=== PATIENT | female | born 1990 | race Caucasian/White ===

== ENCOUNTER 2017-12-31 16:22 | Emergency (ER) | payer SELFPAY ==
[2017-12-31 16:24] VITALS: BP 158/95; PULSE 106; RESP 16; TEMP 36.3; O2SAT 99; BMI 22.8
[2017-12-31] MEDS: Ondansetron 4 MG/2 ML Vial IM (17:17)
[2017-12-31] MEDS: morphine 8 MG/ML Syringe IM (17:17)
--- NOTE | 2017-12-31 17:22 | ED.VISSUMM ---
- ER Visit Summary Date of Service: 12/31/17 Chief Complaint: Back pain History of Present Illness: The patient is a 27 F presenting with back pain. She states this started over 4 weeks ago. She has been seeing a chiropractor, massage therapist, and her primary care physician. She is scheduled to see her primary care physician next Friday for a cortisone injection. She complains of low back pain radiating to her left leg. She denies bowel or bladder incontinence. Denies numbness or weakness. Denies fever. Denies chest pain or shortness of breath. She had an MRI which showed herniated disc at L4 and L5. She is currently on tramadol, gabapentin, prednisone, and ibuprofen. She denies recent injury. Physical Examination: Vitals are stable. Patient is afebrile. Alert no acute distress. HEENT exam is unremarkable. Neck is supple. Lungs are clear and equal bilaterally. Heart is regular rate and rhythm. Abdomen is soft nontender nondistended. Back: Left paraspinal lumbar muscle tenderness. Straight leg raise +30 degrees on left. Normal strength and sensation. Extremities are unremarkable. Skin is warm and dry. No focal neurologic deficit. Remainder of exam is unremarkable. Emergency Department Course and Treatment: Patient given morphine, Zofran. On reevaluation, patient is feeling much improved. She is advised to follow-up at her scheduled appointment with her primary care physician next week. Advised return to ED if worsening complaints. Disposition: Discharge home Impression: Acute on chronic back pain This note was generated with [employer] dictation software. It may contain incorrect words, spelling, and punctuation that were not noted in review of the chart prior to signing ED Disposition - Plan for ED Patient: Chief Complaint: Back Referrals: Mervin Rivera DO [Primary Care Provider] -
--- NOTE | 2017-12-31 17:50 | ED.DEP ---
ED Disposition - Plan for ED Patient: Chief Complaint: Back Instructions: ED Neck Back Pain General Referrals: Mervin Rivera DO [Primary Care Provider] -
[2017-12-31 18:03] VITALS: BP 132/100; PULSE 72; RESP 14; O2SAT 96
== END 2017-12-31 18:04 | disposition home or self-care (01) ==
PROVIDERS: Emergency Provider Emergency Medicine; Family Provider Family Medicine; PCP Family Medicine
DX: M54.5 Low back pain (principal); G89.29 Other chronic pain; M51.26 Other intervertebral disc displacement, lumbar region; Z79.52 Long term (current) use of systemic steroids; Z79.891 Long term (current) use of opiate analgesic; Z79.899 Other long term (current) drug therapy
CPT/HCPCS: 96372; 99282; J2405

== ENCOUNTER 2018-01-03 07:01 | Emergency (ER) | payer SELFPAY ==
[2018-01-03 07:01] VITALS: BP 122/93; PULSE 92; RESP 20; TEMP 36.8; O2SAT 100; BMI 22.8
[2018-01-03] MEDS: HYDROmorphone 1 MG/ML Syringe IV (08:23)
[2018-01-03] MEDS: diazePAM 5 MG Tablet PO ×2 (08:23→10:25)
--- NOTE | 2018-01-03 08:24 | ED.VISSUMM ---
- ER Visit Summary Date of Service: 01/03/18 Chief Complaint: Back pain History of Present Illness: The patient is a 27 F with back pain for a few weeks, she had a recent MRI which showed herniated disks. She has no bowel or bladder compromise. She has radiation to her left leg. She has no saddle anesthesia. She has no fever or chills. No urinary retention. She was given tramadol by the primary care physician and her pain is still quite intense. Physical Examination: Patient appears in some distress. She does not appear toxic. Moist mucous membranes, no obvious facial deformity No C-spine tenderness supple neck. Regular rate and rhythm without any obvious murmurs Clear lungs bilaterally speaking in full sentences without any obvious respiratory distress Abdomen soft and nontender no guarding or rebound suprapubic mass She has lower lumbar and paraspinal tenderness. She has 2+ patellar reflexes bilaterally 1+ Achilles reflexes bilaterally. She has normal plantar flexion of both feet, she has normal dorsiflexion of both great toes. She has a positive straight leg at about 30-45 degrees on the left. Skin does not show any obvious rashes or lesions, no trauma. Alert oriented ?3 with no gross focal deficit Emergency Department Course and Treatment: Patient received IM Dilaudid and Valium. Her symptoms improved I reexamined her, she has a normal neurological exam. She feels like she can void fully. She is able for discharge. An appointment with her PCP in 3 days. Disposition: Discharged stable condition Impression: Lumbar strain Sciatica This note was generated with [employer] dictation software. It may contain incorrect words, spelling, and punctuation that were not noted in review of the chart prior to signing ED Disposition - Plan for ED Patient: Disposition: Home or Assisted Living Chief Complaint: Back Prescriptions: Gabapentin [Neurontin] 600 mg PO TIDCM #90 tab Oxycodone HCl/Acetaminophen [Oxycodone-Acetaminophen 10-325] 1 ea PO 4X/DAY PRN #12 tab PRN Reason: Pain Referrals: Mervin Rivera DO [Primary Care Provider] - 2 Days
[2018-01-03] MEDS: Ondansetron ODT 4 MG Tablet PO (10:25)
[2018-01-03] MEDS: HYDROmorphone 1 MG/ML Syringe IM (10:25)
[2018-01-03 11:16] VITALS: BP 143/96; PULSE 87; RESP 16; O2SAT 100
== END 2018-01-03 11:21 | disposition home or self-care (01) ==
PROVIDERS: Emergency Provider Emergency Medicine; Family Provider Family Medicine; PCP Family Medicine
DX: S39.012A Strain of muscle, fascia and tendon of lower back, initial encounter (principal); M54.42 Lumbago with sciatica, left side; Z79.891 Long term (current) use of opiate analgesic; X58.XXXA Exposure to other specified factors, initial encounter; Y93.89 Activity, other specified; Y92.89 Other specified places as the place of occurrence of the external cause; Y99.8 Other external cause status
CPT/HCPCS: 96372; 96374; 99282; A4216

== ENCOUNTER 2018-03-26 12:00 | Outpatient (RCR) | payer SELFPAY ==
--- NOTE | 2018-03-02 12:21 | HP.PTEVAL_ITS ---
Patient's Visit Information KRISTEL VANEGAS is a 27 year old F referred to Physical Therapy by Mervin Rivera DO with a diagnosis of LUMBAR RADICULOPATHY AND LUMBOSACRAL NEURITIS. Date of Evaluation: 03/02/18 Physical Therapist: Rachael Wheatley PT, Cert MDT - Visit Plan Frequency: 2-3x /Week Duration: 4-6 Weeks Plan: AQUATIC THERAPY FOR PAIN RELEIF, POSTURE CORRECTION/STRENGTHENING, INSTRUCTION IN APPROPRIATE BODY MECHANICS AND ACTIVITY MODIFICATIONS. DLS STARTING WITH A NEUTRAL SPINE PROGRESSING ROM TOLERATED. BARBRA LE ROM, STRETCHING AND STRENGTHENING. HEP INSTRUCTION. 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 Disability: NO. Present symptoms: BACK AND LEFT LE SX'S. PATIENT REPORTS MOST OF PAIN IS IN HER LEG. PAIN GOES FROM MID BACK ALL THE WAY TO LEFT TOES. NUMBNESS AND TINGLING IN LEFT LE TOO TO FOOT. Present since: NOV 2017. Pain Scale: WORST 11/10, LEAST 3/10. Currently: 10. Commenced as a result of: NO APPARENT REASON. Symptoms at onset: LLE STIFFNESS. Worse: STANDING, SITTING, MOVING, EVERYTHING. Better: PAIN MEDICINE (PERCOCET, GABAPENTIN - STOPPED TRAMADOL YESTERDAY), SOMETIMES A HOT SHOWER, SOMETIMES ICE, SOMETIMES SITTING. FREQUENT CHANGE OF POSITION. BACK BRACE RECOMMENDED BY DOCTOR. Disturbed sleep: YES. Previous history/Previous treatment: 2006 WORK[employer] COMP CLAIM FOR STRAINED LOW BACK. CHIROPRACTOR OFF AND ON AT LEAST 2-3 TIMES A YEAR SINCE 2006. LAST CHIROPRACTIC VISIT WAS BEGINNING OF DEC 2017. SINCE 2018 HAS ONLY HAD MASSOTHERAPY. SENSORY DEPORVATION FLOAT TANK X 1 IN [place] IN DEC WITH TEMPORARY BENEFIT. USING INVERSION TABLE - DOCTOR RECOMMENDED. Coughing/sneezing/straining: POSITIVE. Gait: PATIENT REPORTS HER WALKING IS OFF BECAUSE OF HER LEFT ANKLE PAIN. LIMPING. STATES THE PAIN SOMETIMES CAUSES HER TO SIT DOWN. Difficulty initiating urinatin: NO. Accidents: UNREMARKABLE. Unexplained weight loss: NO. Imaging: PATIENT REPORTS DEC 2017 LUMBAR MRI SHOWING 2 BULGING DISCS L4-L5 REGIONS. PATIENT DENIES HAVING ANY X- RAYS. STATES THE ED TOLD HER SHE HAS ARTHRITIS ALL THE WAY UP AND DOWN HER BACK. STATES DR. RIVERA ORDERED HER MRI AND SHE HAD IT COMPLETED AT [facility]. PMH: ANXIETY, DEPRESSION, OCD - PATIENT REPORTS NONE OF THESE ARE DIAGNOSED AND SHE DOES NOT TAKE MEDICINE CURRENTLY FOR ANY OF THESE. Recent major surgery: NO. PLOF (Prior Level of Function): PATIENT REPORTS SINCE NOV 2017 SHE IS NOW UNABLE TO PLAY WITH HER DOGS AND PICK THINGS UP LIKE THE JUG OF MILK AND LAUNDRY BASKETS. CAN'T DO DISHES BECAUSE OF BENDING TO PUT THEM IN THE EXHIBIT CLEANER, MAKING BEDS AND ANYTHING THAT HAS RESISTANCE WITH LIFTING, PUSHING OR PULLING. SHE REPORTS THAT PRIOR TO NOV SHE WAS ABLE TO DO ALL THESE THINGS. OTHER: PATIENT REPORTS DR. RIVERA ALSO REFERRED HER TO PAIN MGMT AND SHE HAS AN APPOINTMENT MAR 18 2018. - Objective Sitting/Standing Posture: FAIR. FORWARD HEAD. ROUNDED SHOULDERS. Lordosis: REDUCED. Lateral shift: MILD RIGHT. Relevant shift: NO. Active Correction of posture: WORSE. Other Observations: INDEP GAIT INTO PT WITHOUT ANY ASSISTIVE DEVICES OR LOB. PATIENT MOVES AND TALKS IMPULSIVELY THROUGHTOUT SESSION. Motor deficit: RIGHT HIP 4-/5, KNEE EXT 5/5, KNEE FLEX 5/5 ANKLE 5/5. LEFT HIP 3+/5, KNEE EXT 4/5, KNEE FLEX 4/5, ANKLE 3/5. Sensory deficit: DECREASED LIGHT TOUCH SENSATION OF LEFT MORAES AND ANKLE COMPARED TO RIGHT. HYPERSENSATIVITY OF LEFT FOOT MEDIALLY. ROM deficit: LEFT LE HAMSTRINGS AND GASTROC-SOLEUS COMPLEX. Reflexes: 2/3 BARBRA LE'S. Dural Signs: POSITIVE BARBRA LE'S LEFT > RIGHT. Lumbar mvmt loss: flex - MIN - INCREASES BARBRA LB PAIN. ext - MIN - INCREASES LB AND LEFT HIP PAIN. R SG - MOD - INCREASES LB AND LEFT LE PAIN ESPECIALLY BEHIND KNEE. L SG - MOD - INCREASES LB AND LEFT LE PAIN ESPEICALLY BEHIND KNEE. REPORTS SHE DIDN'T TAKE HER PILLS USUAL AT 10 AM THIS MORNING. Core strength: POOR. Palpation: VERY TENDER WITH LIGHT PALPATION OF THE L345S1 REGION. VERY TENDER OVER LEFT LUMBAR PARASPINALS AND BARBRA INCREASED MUSCLE TONE OF PARASPINALS. NOT TENDER RIGHT BUTTOCK OR HIP BUT TENDER INTO LEFT BUTTOCK WELL PREVIOUSLY MENTIONED LEFT FOOT. - Goals Goal 1:: DECREASE C/O BACK AND LLE SX'S Goal Time Frame: 4-6 Weeks Goal 2:: IMPROVE SITTING, PERSONAL CARE, LIFTING, WALKING, STANDING, SLEEP, SOCIAL LIFE, TRAVEL AND EMPLOYMENT/HOMEMAKING FUNCTION. Goal Time Frame: 4-6 Weeks Goal 3:: INSTRUCT IN PROPHYLAXIS Goal Time Frame: 4-6 Weeks - Rehabilitation Potential Rehabilitation Potential: Fair - Anticipated Interventions Patient/Client Instruction: Educate patient on: Condition, Plan of Care, Risk Factors, Benefits of Fitness Program For the Purpose of:: To improve self management Therapeutic Exercise to Include: Strength training, Body mechanics, Postural training, Flexibilty training, In an aquatic setting, Dynamic Lumbar Stabilization For the Purpose of:: To decrease pain, To increase ROM, To improve nutrient delivery to tissue, To improve muscle performance and motor function, To increase tolerance to activity/condition/position, To improve ability of physical actions for home/community/work/leisure, To improve gait and locomotor functions Thank you for the opportunity to evaluate your patient. For Medicare and Medicare HMO plans, please review the plan of care and approve it. It will need to be FAXED BACK to us at [phone] for Medicare purposes. For Medicare only, by signing this I certify the plan of care. Please let me know if there are questions or concerns regarding this plan of care. Physician Signature: Date:
--- NOTE | 2018-03-19 10:59 | HP.PTREVAL_ITS ---
Mervin Rivera, DO, It has been my pleasure to treat KRISTEL VANEGAS over the last 6 visits for LUMBAR RADICULOPATHY AND LUMBOSACRAL NEURITIS. Please see the progress note below for an update on the physical therapy plan of care! Subjective: PATIENT REPORTS THE POOL THERAPY HAS HELPED. STATES SHE IS HAVING LESS PROBLEMS WITH HER LEFT FOOT. CANCELLED INJECIONS YESTERDAY DUE TO FEELING BETTER. TAKING ABOUT 50% LESS MEDICINE. CURRENTLY HAVING MILD LBP AND SORENESS IN RIGHT FOOT AND TOES BUT NO LE PAIN RIGHT NOW. PLANNING TO JOIN [employer] TODAY BUT TRYING TO FIGURE OUT HOW THAT WORKS AND WHAT SHE WOULD/SHOULD BE ABLE TO DO WITH THE MEMBERSHIP. REPORTS HER PAIN IS NOW RANGING FROM 1-7/10. PATIENT REPORTS SHE CAN PLAY WITH THE DOGS NOW, TAKE HER GRANDMA TO THE BATHROOM, DO LAUNDRY MODIFIED, DRIVE AND TAKE THE TRASH OUT BUT CAREFULLY. PATIENT REPORTS SHE HASN'T BEEN AFRAID TO TRY THINGS SHE WAS BEFORE STARTING THERAPY. NO LONGER USING ABDOMINAL BINDER. Objective/Function: PATIENT STILL HAS SIGNIFICANT FINDINGS BUT SHE HAS NO INSURANCE - UPON EXAM TODAY: INDEP GAIT WITHOUT AD OR LOB BUT MILD LIMP ON LLE. LATERAL SHIFT: MILDLY TO THE RIGHT. Relevant shift: NO. Active Correction of posture: WORSE. Other Observations: INDEP GAIT INTO PT WITHOUT ANY ASSISTIVE DEVICES OR LOB. PATIENT MOVES AND TALKS IMPULSIVELY THROUGHTOUT SESSION. INDEP TRANSFER SIT TO STAND WITHOUT UE ASSIST. Motor deficit: RIGHT HIP 4-/5, KNEE EXT 5/5, KNEE FLEX 5/5 ANKLE 5/5. LEFT HIP 4-/5, KNEE EXT 5/5, KNEE FLEX 5/5, ANKLE 4/5. Sensory deficit: DECREASED LIGHT TOUCH SENSATION OF LEFT MEDIAL FOOT AND TOES COMPARED TO RIGHT BUT OTHERWISE BARBRA LE LIGHT TOUCH SENSATION APPEARS TO BE INTACT AND SYMMETRICAL RIGHT NOW. PATIENT REPORTS THAT AT TIMES THE MEDIAL ASPECT OF HER FOOT IS REALLY TENDER. ROM deficit: LEFT LE HAMSTRINGS AND GASTROC-SOLEUS COMPLEXS BARBRA. Dural Signs: POSITIVE BARBRA LE'S LEFT > RIGHT. Lumbar mvmt loss: flex - NIL - INCREASES BARBRA LB PAIN. ext - MIN - INCREASES LB AND LEFT HIP PAIN INTO LEFT THIGH. R SG - MOD - INCREASES LEFT LBP. L SG - MOD - INCREASES LEFT AND CENTRAL LBP. Core strength: POOR. Palpation: VERY TENDER WITH LIGHT PALPATION OF THE L345S1 REGION. VERY TENDER OVER LEFT LUMBAR PARASPINALS AND BARBRA INCREASED MUSCLE TONE OF PARASPINALS. NOT TENDER RIGHT BUTTOCK OR HIP BUT TENDER INTO LEFT BUTTOCK WELL PREVIOUSLY MENTIONED LEFT FOOT. THIS PT RECOMMENDS FURTHER PT OR PHYSICIAN RE-ASSESSMENT AND/OR PAIN MGMT. Plan Plan: RECOMMEND CONT PT AT LEAST 1-2 TIMES A WEEK X 3-4 WEEKS FOR FURTHER INSTRUCTION IN PROPER POSTURE CONTROL, BODY MECHANICS AND SAFE APPROPRIATE INDEP EX WITH HEALTH AND WELLNESS MEMBERSHIP ALONG WITH FURTHER HEP INSTRUCITON. PATIENT IS AGREEABLE TO ONE TIME A WEEK AT THIS TIME. Goals Goal 1:: DECREASE C/O BACK AND LLE SX'S Goal Time Frame: 4-6 Weeks Goal Progress: Progressing Goal 2:: IMPROVE SITTING, PERSONAL CARE, LIFTING, WALKING, STANDING, SLEEP, SOCIAL LIFE, TRAVEL AND EMPLOYMENT/HOMEMAKING FUNCTION. Goal Time Frame: 4-6 Weeks Goal Progress: Progressing Goal 3:: INSTRUCT IN PROPHYLAXIS Goal Time Frame: 4-6 Weeks Goal Progress: Progressing Anticipated Interventions Patient/Client Instruction: Educate patient on: Condition, Plan of Care, Risk Factors, Benefits of Fitness Program For the Purpose of:: To improve self management Therapeutic Exercise to Include: Strength training, Body mechanics, Postural training, Flexibilty training, In an aquatic setting, Dynamic Lumbar Stabilization For the Purpose of:: To decrease pain, To increase ROM, To improve nutrient delivery to tissue, To improve muscle performance and motor function, To increase tolerance to activity/condition/position, To improve ability of physical actions for home/community/work/leisure, To improve gait and locomotor functions Please do not hesitate to contact me at [phone] by phone or if you have questions or concerns regarding this new plan of care! Sincerely, Rachael Wheatley, PT, Cert MDT
--- NOTE | 2018-03-26 13:28 | HP.PTDCSUM_ITS ---
HP - PT D/C Summary It has been my pleasure to treat KRISTEL VANEGAS under orders from Mervin Rivera DO, for the diagnosis of LUMBAR RADICULOPATHY AND LUMBOSACRAL NEURITIS for a total of 7 visit(s). Discharge Date: Please see the following information for a summary of their discharge status. - Subjective Subjective: PATIENT REPORTS SHE IS DOWN TO 1.5 PILLS OF PERCOCET A DAY. PATIENT REPORTS SHE HAS BEEN HURTING MORE LATELY AND HAS NEEDED TO SLEEP IN THE CHAIR. INSIDE OF RIGHT FOOT IS STILL NUMB. 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 STATES SHE PLANS TO HAVE AN APPOINTMENT WITH DR. RIVERA NEXT WEEK. STATES SHE HAS BEEN TRYING TO DO THE HOME EX'S GIVEN AND SOMETIIMES THEY FEEL OK AND SOMETIMES THEY DON'T. STATES SHE WAS CRYING DUE TO PAIN THE OTHER DAY. - Pain LLE Pain Intensity (Out of 10): 3 Lumbar Spine Pain Intensity (Out of 10): 4 - Overall Improvement % Improvement: 60 - Objective Objective/Function: PATIENT IS NOT MAKING PROGRESS AND PATIENT IS UNABLE TO ATTEND PT REGULARLY OR REST BACK VERY WELL RIGHT NOW AND SHE DOES NOT HAVE INSURANCE. - Goals Goal 1:: DECREASE C/O BACK AND LLE SX'S Goal Progress: Not Progressing Goal 2:: IMPROVE SITTING, PERSONAL CARE, LIFTING, WALKING, STANDING, SLEEP, SOCIAL LIFE, TRAVEL AND EMPLOYMENT/HOMEMAKING FUNCTION. Goal Progress: Not Progressing Goal 3:: INSTRUCT IN PROPHYLAXIS Goal Progress: Not Progressing - Plan Plan: D/C FROM PT DUE TO LACK OF PROGRESS AND DIFFICULTY WITH PARTICIPATION AT THIS TIME. PATIENT AGREEABLE WITH DISCHARGE AND PLANS TO FOLLOW UP WITH DR. RIVERA. - D/C Information If there are questions or concerns regarding this patient's physical therapy, please feel free to call me at [phone]. Thank you for the referral of this patient. Sincerely, Rachael Wheatley, PT, Cert MDT
--- OUTSIDE RECORDS SUMMARY | 2018-05-04 21:24 | XMS RPT_ITS ---
:1990 Author Organization OHIP Care Team Providers Name Role Phone Mervin Rivera Attending Unavailable Mervin Rivera Primary Care Unavailable Mervin Rivera Referring Unavailable Roxie Thomas Attending Unavailable Mervin Rivera Primary Care Unavailable Mervin Rivera Primary Care Unavailable Geovanny Lewis Attending Unavailable PROBLEMS PROBLEMS DATE TYPE CONDITION / CODE ATTENDING STATUS SOURCE 01/03/2018 Unknown M54.30 - Geovanny Lewis Active [facility] / M54.30(ICD-10) Repository PROCEDURES PROCEDURES No Procedure Records FoundRESULTS RESULTS INITAL EVALUATION (1) Observed: 03/02/2018 Status: F Source: [place] - PT 4:36 PM [facility] REPOSITORY [facility] [address] [place] [address]. [address] [place] [address] / REHABILITATION SERVICES INITIAL EVALUATION MR#: [id number] Acct: [id number] Name: KRISTEL VANEGAS Rep #: [id number] : 1990 27 From: Rachael Wheatley PT, Cert. MDT Referring DrBuck: Mervin Rivera DO Status: REG RCR Insurance: [facility] PACKAGE PLAN SELF PAY INSURANCE Patient's Visit Information KRISTEL VANEGAS is a 27 year old F referred to Physical Therapy by Mervin Rivera DO with a diagnosis of LUMBAR RADICULOPATHY AND LUMBOSACRAL NEURITIS. Date of Evaluation: 03/02/18 Physical Therapist: Rachael Wheatley, PT, Cert MDT - Visit Plan Frequency: 2-3x /Week Duration: 4-6 Weeks Plan: AQUATIC THERAPY FOR PAIN RELEIF, POSTURE CORRECTION/STRENGTHENING, INSTRUCTION IN APPROPRIATE BODY MECHANICS AND ACTIVITY MODIFICATIONS. DLS STARTING WITH A NEUTRAL SPINE PROGRESSING ROM TOLERATED. BARBRA LE ROM, STRETCHING AND STRENGTHENING. HEP INSTRUCTION. 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 Disability: NO. Present symptoms: BACK AND LEFT LE SX'S. PATIENT REPORTS MOST OF PAIN IS IN HER LEG. PAIN GOES FROM MID BACK ALL THE WAY TO LEFT TOES. NUMBNESS AND TINGLING IN LEFT LE TOO TO FOOT. Present since: NOV 2017. Pain Scale: WORST 11/10, LEAST 3/10. Currently: 04/19. Commenced as a result of: NO APPARENT REASON. Symptoms at onset: LLE STIFFNESS. Worse: STANDING, SITTING, MOVING, EVERYTHING. Better: PAIN MEDICINE (PERCOCET, GABAPENTIN - STOPPED TRAMADOL YESTERDAY), SOMETIMES A HOT SHOWER, SOMETIMES ICE, SOMETIMES SITTING. FREQUENT CHANGE OF POSITION. BACK BRACE RECOMMENDED BY DOCTOR. Disturbed sleep: YES. Previous history/Previous treatment: 2006 WORK[employer] COMP CLAIM FOR STRAINED LOW BACK. CHIROPRACTOR OFF AND ON AT LEAST 2-3 TIMES A YEAR SINCE 2006. LAST CHIROPRACTIC VISIT WAS BEGINNING OF DEC 2017. SINCE 2018 HAS ONLY HAD MASSOTHERAPY. SENSORY DEPORVATION FLOAT TANK X 1 IN [place] IN DEC WITH TEMPORARY BENEFIT. USING INVERSION TABLE - DOCTOR RECOMMENDED. Coughing/sneezing/straining: POSITIVE. Gait: PATIENT REPORTS HER WALKING IS OFF BECAUSE OF HER LEFT ANKLE PAIN. LIMPING. STATES THE PAIN SOMETIMES CAUSES HER TO SIT DOWN. Difficulty initiating urinatin: NO. Accidents: UNREMARKABLE. Unexplained weight loss: NO. Imaging: PATIENT REPORTS DEC 2017 LUMBAR MRI SHOWING 2 BULGING DISCS L4-L5 REGIONS. PATIENT DENIES HAVING ANY X-RAYS. STATES THE ED TOLD HER SHE HAS ARTHRITIS ALL THE WAY UP AND DOWN HER BACK. STATES DR. RIVERA ORDERED HER MRI AND SHE HAD IT COMPLETED AT [facility]. PMH: ANXIETY, DEPRESSION, OCD - PATIENT REPORTS NONE OF THESE ARE DIAGNOSED AND SHE DOES NOT TAKE MEDICINE CURRENTLY FOR ANY OF THESE. Recent major surgery: NO. PLOF (Prior Level of Function): PATIENT REPORTS SINCE NOV 2017 SHE IS NOW UNABLE TO PLAY WITH HER DOGS AND PICK THINGS UP LIKE THE JUG OF MILK AND LAUNDRY BASKETS. 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 SHE REPORTS THAT PRIOR TO NOV SHE WAS ABLE TO DO ALL THESE THINGS. OTHER: PATIENT REPORTS DR. RIVERA ALSO REFERRED HER TO PAIN MGMT AND SHE HAS AN APPOINTMENT MAR 18 2018. - Objective Sitting/Standing Posture: FAIR. FORWARD HEAD. ROUNDED SHOULDERS. Lordosis: REDUCED. Lateral shift: MILD RIGHT. Relevant shift: NO. Active Correction of posture: WORSE. Other Observations: INDEP GAIT INTO PT WITHOUT ANY ASSISTIVE DEVICES OR LOB. PATIENT MOVES AND TALKS IMPULSIVELY THROUGHTOUT SESSION. Motor deficit: RIGHT HIP 4-/5, KNEE EXT 5/5, KNEE FLEX 5/5 ANKLE 5/5. LEFT HIP 3+/5, KNEE EXT 4/5, KNEE FLEX 4/5, ANKLE 3/5. Sensory deficit: DECREASED LIGHT TOUCH SENSATION OF LEFT MORAES AND ANKLE COMPARED TO RIGHT. HYPERSENSATIVITY OF LEFT FOOT MEDIALLY. ROM deficit: LEFT LE HAMSTRINGS AND GASTROC-SOLEUS COMPLEX. Reflexes: 2/3 BARBRA LE'S. Dural Signs: POSITIVE BARBRA LE'S LEFT > RIGHT. Lumbar mvmt loss: flex - MIN - INCREASES BARBRA LB PAIN. ext - MIN - INCREASES LB AND LEFT HIP PAIN. R SG - MOD - INCREASES LB AND LEFT LE PAIN ESPECIALLY BEHIND KNEE. L SG - MOD - INCREASES LB AND LEFT LE PAIN ESPEICALLY BEHIND KNEE. REPORTS SHE DIDN'T TAKE HER PILLS USUAL AT 10 AM THIS MORNING. Core strength: POOR. Palpation: VERY TENDER WITH LIGHT PALPATION OF THE L345S1 REGION. VERY TENDER OVER LEFT LUMBAR PARASPINALS AND BARBRA INCREASED MUSCLE TONE OF PARASPINALS. NOT TENDER RIGHT BUTTOCK OR HIP BUT TENDER INTO LEFT BUTTOCK WELL PREVIOUSLY MENTIONED LEFT FOOT. - Goals Goal 1:: DECREASE C/O BACK AND LLE SX'S Goal Time Frame: 4-6 Weeks Goal 2:: IMPROVE SITTING, PERSONAL CARE, LIFTING, WALKING, STANDING, SLEEP, SOCIAL LIFE, TRAVEL AND EMPLOYMENT/HOMEMAKING FUNCTION. Goal Time Frame: 4-6 Weeks Goal 3:: INSTRUCT IN PROPHYLAXIS Goal Time Frame: 4-6 Weeks - Rehabilitation Potential Rehabilitation Potential: Fair - Anticipated Interventions Patient/Client Instruction: Educate patient on: Condition, Plan of Care, Risk Factors, Benefits of Fitness Program For the Purpose of:: To improve self management Therapeutic Exercise to Include: Strength training, Body mechanics, Postural training, Flexibilty training, In an aquatic setting, Dynamic Lumbar Stabilization For the Purpose of:: To decrease pain, To increase ROM, To improve nutrient delivery to tissue, To improve muscle performance and motor function, To increase tolerance to activity/condition/position, To improve ability of physical actions for home/community/work/leisure, To improve gait and locomotor functions Thank you for the opportunity to evaluate your patient. For Medicare and Medicare HMO plans, please review the plan of care and approve it. It will need to be FAXED BACK to us at [phone] for Medicare purposes. For Medicare only, by signing this I certify the plan of care. Please let me know if there are questions or concerns regarding this plan of care. Physician Signature: Date: <Electronically signed by Rachael Wheatley PT, Cert. MDT> 03/02/18 1636 CC: Mervin Rivera DO [place] Signed EMERGENCY DEPARTMENT Observed: 01/03/2018 Status: F Source: [place] SUMMARY 5:37 PM [facility] Medical Records Department [address] [place] [address] Emergency Department Summary 01/03/18 0824 MR#: [id number] Acct: [id number] Name: KRISTEL VANEGAS Rep #: [id number] : 1990 27 From: Geovanny Lewis MD PCP: Mervin Rivera DO Status: DEP ER - ER Visit Summary Date of Service: 01/03/18 Chief Complaint: Back pain History of Present Illness: The patient is a 27 F with back pain for a few weeks, she had a recent MRI which showed herniated disks. She has no bowel or bladder compromise. She has radiation to her left leg. She has no saddle anesthesia. She has no fever or chills. No urinary retention. She was given tramadol by the primary care physician and her pain is still quite intense. Physical Examination: Patient appears in some distress. She does not appear toxic. Moist mucous membranes, no obvious facial deformity No C-spine tenderness supple neck. Regular rate and rhythm without any obvious murmurs Clear lungs bilaterally speaking in full sentences without any obvious respiratory distress Abdomen soft and nontender no guarding or rebound suprapubic mass She has lower lumbar and paraspinal tenderness. She has 2+ patellar reflexes bilaterally 1+ Achilles reflexes bilaterally. She has normal plantar flexion of both feet, she has normal dorsiflexion of both great toes. She has a positive straight leg at about 30-45 degrees on the left. Skin does not show any obvious rashes or lesions, no trauma. Alert oriented 3 with no gross focal deficit Emergency Department Course and Treatment: Patient received IM Dilaudid and Valium. Her symptoms improved I reexamined her, she has a normal neurological exam. She feels like she can void fully. She is able for discharge. An appointment with her PCP in 3 days. Disposition: Discharged stable condition Impression: Lumbar strain Sciatica This note was generated with [employer] dictation software. It may contain incorrect words, spelling, and punctuation that were not noted in review of the chart prior to signing ED Disposition - Plan for ED Patient: Disposition: Home or Assisted Living Chief Complaint: Back Prescriptions: Gabapentin [Neurontin] 600 mg PO TIDCM #90 tab Oxycodone HCl/Acetaminophen [Oxycodone-Acetaminophen 10-325] 1 ea PO 4X/DAY PRN #12 tab PRN Reason: Pain Referrals: Mervin Rivera, DO [Primary Care Provider] - 2 Days What to do if you have Problems For any increased pain, shortness of breath, bleeding, nausea or vomiting, chest pain, or any unexpected problems, contact your Primary Care Provider. Call [facility] ([phone]) or report to the closest Emergency Room. Call 911 if necessary. 01/03/18 3939 <Electronically signed by Geovanny Lewis MD> Date Geovanny Lewis MD Cosigner Signature (If Indicated): Date CC: Mervin Nicole [place] EMERGENCY DEPARTMENT Observed: 12/31/2017 Status: F Source: [place] SUMMARY 5:50 PM [facility] REPOSITORY [facility] Medical Records Department [address] [place] [address] Emergency Department Summary 12/31/17 1722 MR#: [id number] Acct: [id number] Name: KRISTEL VANEGAS Rep #: [id number] : 1990 27 From: Roxie Thomas MD PCP: Mervin Rivera DO Status: REG ER - ER Visit Summary Date of Service: 12/31/17 Chief Complaint: Back pain History of Present Illness: The patient is a 27 F presenting with back pain. She states this started over 4 weeks ago. She has been seeing a chiropractor, massage therapist, and her primary care physician. She is scheduled to see her primary care physician next Friday for a cortisone injection. She complains of low back pain radiating to her left leg. She denies bowel or bladder incontinence. Denies numbness or weakness. Denies fever. Denies chest pain or shortness of breath. She had an MRI which showed herniated disc at L4 and L5. She is currently on tramadol, gabapentin, prednisone, and ibuprofen. She denies recent injury. Physical Examination: Vitals are stable. Patient is afebrile. Alert no acute distress. HEENT exam is unremarkable. Neck is supple. Lungs are clear and equal bilaterally. Heart is regular rate and rhythm. Abdomen is soft nontender nondistended. Back: Left paraspinal lumbar muscle tenderness. Straight leg raise +30 degrees on left. Normal strength and sensation. Extremities are unremarkable. Skin is warm and dry. No focal neurologic deficit. Remainder of exam is unremarkable. Emergency Department Course and Treatment: Patient given morphine, Zofran. On reevaluation, patient is feeling much improved. She is advised to follow- up at her scheduled appointment with her primary care physician next week. Advised return to ED if worsening complaints. Disposition: Discharge home Impression: Acute on chronic back pain This note was generated with [employer] dictation software. It may contain incorrect words, spelling, and punctuation that were not noted in review of the chart prior to signing ED Disposition - Plan for ED Patient: Chief Complaint: Back Referrals: Mrevin Rivera DO [Primary Care Provider] - What to do if you have Problems For any increased pain, shortness of breath, bleeding, nausea or vomiting, chest pain, or any unexpected problems, contact your Primary Care Provider. Call [facility] ([phone]) or report to the closest Emergency Room. Call 911 if necessary. 12/31/171749 <Electronically signed by Roxie Thomas MD> Date Roxie Thomas MD Cosigner Signature (If Indicated): Date CC: Mervin Rivera DO DISCHARGE INSTRUCTION Observed: 12/31/2017 Status: F Source: [place] 5:50 PM [facility] REPOSITORY [facility] Medical Records Department [address] [place] [address] Discharge Instruction 12/31/171749 MR#: [id number] Acct: [id number] Name: KRISTEL VANEGAS Rep #: [id number] : 1990 27 From: Roxie Thomas MD PCP: Mervin Rivera DO Status: REG ER ED Disposition - Plan for ED Patient: Chief Complaint: Back Instructions: ED Neck Back Pain General Referrals: Mervin Rivera DO [Primary Care Provider] - What to do if you have Problems For any increased pain, shortness of breath, bleeding, nausea or vomiting, chest pain, or any unexpected problems, contact your Primary Care Provider. Call [facility] ([phone]) or report to the closest Emergency Room. Call 911 if necessary. 12/31/171749 <Electronically signed by Roxie Thomas MD> Date Roxie Thomas MD Cosignkim Signature (If Indicated): Date CC: Mervin Rivera DO ALLERGIES ALLERGIES DATE TYPE / CODE NAME / CODE REACTION SEVERITY SOURCE 01/03/2018 Drug nickel/F0060 Rash Unknown [facility] Allergy/4160 41499([facility] 25516(SNOMED ) Repository CT) ENCOUNTERS ENCOUNTERS ADMIT/DISCHARGE ACCOUNT ADMITTING ENCOUNTER LOCATION SOURCE NUMBER CLASS 03/04/2018 [id number] Ambulatory [facility] 5 [facility] ing:PT Repository 01/03/2018/ [id number] Emergency [facility] 8 3 [facility] ing:ED Repository 12/31/2017/ [id number] Emergency [facility] 8 5 [facility] ing:ED Repository PAYERS PAYERS ENCOUNTER GUARANTOR PAYER SUBSCRIBER SOURCE 03/04/2018 KRISTEL Estrella Primary Insurance:[facility] KRISTEL Delores Desiree [id number] [facility] [place]: [id number] [id number] Repository [id number]: (330) Date:2018-02-06 [phone] () 03/04/2018 Secondary NOT GIVENUNK [place] Insurance:SELF PAY [facility] Number: Effective Repository Date:2018-02-06 01/03/2018 KRISTEL Delores Primary NOT GIVENUNK Desiree [id number] Insurance:SELF PAY [place], [place] Number: Effective Repository [id number]: (330) Date:2018-01-03 [phone] () 12/31/2017 KRISTEL Estrella Primary NOT GIVENUNK Desiree [id number] Insurance:SELF PAY [place], [place] Number: Effective Repository [phone]: (330) Date:2017-12-31 [phone] ()
== END 2018-03-26 19:00 | disposition home or self-care (01) ==
LOC: PT 12:00
PROVIDERS: Family Provider Family Medicine; PCP Family Medicine; Referring Provider Family Medicine; Visit Provider Family Medicine
DX: M54.17 Radiculopathy, lumbosacral region (principal); M54.16 Radiculopathy, lumbar region
CPT/HCPCS: 97113; 97162; 97530

== ENCOUNTER → 2019-03-29 18:00 | Outpatient (CLI) | payer SELFPAY | PROVIDERS: PCP Family Medicine; Visit Provider Family Medicine | DX: R30.0 Dysuria (principal) | CPT/HCPCS: 87086 ==

== ENCOUNTER → 2019-10-27 14:14 | Outpatient (CLI) | payer BC, SELFPAY ==
[2019-10-27 16:52] LABS: Absolute Lymphocyte Count 2.31 X10^3/uL (0.83-4.51); Absolute Neutrophil Count 4.5 X10^3/uL (2.0-7.7); Basophil# 0.04 X10^3/uL; Basophil% 0.5 % (0-1); Eosinophil# 0.09 X10^3/uL; Eosinophils% 1.2 % (0-5); Hematocrit 43.1 % (37-47); Lymphocyte # 2.31 X10^3/ul (4.0); Lymphocyte % 31.6 % (19-41); Mean Corp Hgb Conc 32.5 g/dL (32-36); Mean Corpuscular Hgb 30.4 pg (27.0-32.0); Mean Corpuscular Volume 93.5 fL (81-99); Monocyte# 0.33 X10^3/uL; Monocyte% 4.5 % (0-10); NRBC Flagged by Analyzer 0 % (0-5); Neutrophil # 4.54 X10^3/uL (2.7-7.7); Neutrophil % 62.1 % (47-70); Platelet Count 369 K/mm3 (150-450); RBC Distribution Width SD 41.6 fl (35.1-43.9); Red Blood Count 4.61 M/mm3 (4.2-5.4); White Blood Count 7.3 K/mm3 (4.4-11.0)
[2019-10-27 17:48] LABS: ALB/GLOB Ratio 0.9 RATIO (0.9-2.4); AST(SGOT) 10 U/L (15-37); Alanine Aminotransfer ALT/SGPT 20 U/L (13-56); Albumin, Serum 3.6 g/dL (3.2-5.0); Alkaline Phosphatase 68 U/L (45-117); Anion Gap 5 (5-15); BUN 12 mg/dL (7-18); BUN/Creat Ratio 12.7 RATIO (10-20); Calcium,Total 9.2 mg/dL (8.5-10.1); Chloride 108 mmol/L (98-107); Creatinine, Serum 0.94 mg/dL (0.55-1.02); EST Glomerular Filtration Rate 74 mL/min (>60); Est Glom Filt Rate - Afr Amer 89 mL/min (>60); Globulin 4.1 g/dL (2.2-4.2); Glucose 82 mg/dL (74-106); Potassium 4.2 mmol/L (3.5-5.1); Protein, Total 7.7 g/dL (6.4-8.2); Sodium Level 139 mmol/L (136-145)
== END ==
PROVIDERS: PCP Family Medicine; Visit Provider Family Medicine
DX: Z01.818 Encounter for other preprocedural examination (principal); N80.9 Endometriosis, unspecified
CPT/HCPCS: 36415; 80053; 85025

== ENCOUNTER → 2020-01-17 14:29 | Outpatient (CLI) | payer BC, SELFPAY ==
[2020-01-17 17:54] LABS: Absolute Lymphocyte Count 2.42 X10^3/uL (0.83-4.51); Absolute Neutrophil Count 3.2 X10^3/uL (2.0-7.7); Basophil# 0.05 X10^3/uL; Basophil% 0.8 % (0-1); Eosinophil# 0.09 X10^3/uL; Eosinophils% 1.5 % (0-5); Hematocrit 42.4 % (37-47); Hemoglobin 13.6 g/dL (12.0-15.0); Lymphocyte # 2.42 X10^3/ul (4.0); Lymphocyte % 39.3 % (19-41); Mean Corp Hgb Conc 32.1 g/dL (32-36); Mean Corpuscular Hgb 30.4 pg (27.0-32.0); Mean Corpuscular Volume 94.9 fL (81-99); Mean Platelet Vol. 9.8 fl (6.2-12.0); Monocyte# 0.39 X10^3/uL; Monocyte% 6.3 % (0-10); NRBC Flagged by Analyzer 0 % (0-5); Neutrophil % 51.9 % (47-70); Platelet Count 336 K/mm3 (150-450); RBC Distribution Width CV 11.9 % (11.6-14.6); RBC Distribution Width SD 41.1 fl (35.1-43.9); Red Blood Count 4.47 M/mm3 (4.2-5.4); White Blood Count 6.2 K/mm3 (4.4-11.0)
[2020-01-17 18:11] LABS: Erythrocyte Sedimentation Rate 5 mm/hr (0-20)
[2020-01-17 19:00] LABS: ALB/GLOB Ratio 1.2 RATIO (0.9-2.4); AST(SGOT) 16 U/L (15-37); Alanine Aminotransfer ALT/SGPT 31 U/L (13-56); Albumin, Serum 4.2 g/dL (3.2-5.0); Alkaline Phosphatase 92 U/L (45-117); Anion Gap 7 (5-15); BUN 12 mg/dL (7-18); BUN/Creat Ratio 15.7 RATIO (10-20); CRP < 2.90 mg/L (0.0-3.0); Calcium,Total 9.1 mg/dL (8.5-10.1); Chloride 108 mmol/L (98-107); Creatinine, Serum 0.76 mg/dL (0.55-1.02); EST Glomerular Filtration Rate 94 mL/min (>60); Est Glom Filt Rate - Afr Amer 113 mL/min (>60); Globulin 3.5 g/dL (2.2-4.2); Glucose 90 mg/dL (74-106); Iron 47 ug/dL (50-170); Potassium 3.7 mmol/L (3.5-5.1); Protein, Total 7.7 g/dL (6.4-8.2); Sodium Level 139 mmol/L (136-145)
[2020-01-18 13:32] LABS: Vitamin B12 551 pg/mL (211-911)
== END ==
PROVIDERS: PCP Family Medicine; Visit Provider Family Medicine
DX: R20.0 Anesthesia of skin (principal); R53.1 Weakness; M79.10 Myalgia, unspecified site; M25.50 Pain in unspecified joint; R53.83 Other fatigue; Z51.81 Encounter for therapeutic drug level monitoring
CPT/HCPCS: 36415; 80053; 82306; 82607; 83540; 85025; 85652; 86140

== ENCOUNTER 2020-05-25 11:23 | Outpatient (RCR) | payer OTHER, SELFPAY | END 2020-07-18 23:59 | LOC: IMMUN 11:23 | PROVIDERS: PCP Family Medicine; Referring Provider Family Medicine; Visit Provider Family Medicine | DX: Z23 Encounter for immunization (principal) | CPT/HCPCS: 0001A; 91300 ==

== ENCOUNTER → 2020-11-27 07:19 | Outpatient (CLI) | payer OTHER, SELFPAY ==
--- NOTE | 2020-11-27 07:21 | MRI_ITS ---
STUDY: MRI RIGHT WRIST WITH AND WITHOUT CONTRAST REASON FOR EXAM: Right wrist mass for about 3 months. TECHNIQUE: Standardized fat and water weighted pulse sequences were obtained in all 3 orthogonal planes, pre-and post contrast administration. 15ml Dotarem via IV was administered for the contrast portion of the examination. COMPARISON: Radiographs 10/26/2020. FINDINGS: Normal visualized distal radius and ulna. Normal distal radioulnar articulation (DRUJ). There is a small linear central perforation of the radial aspect of the triangular fibrocartilage (gradient coronal images 18-21). Normal carpal bones. Normal radiocarpal, intercarpal and midcarpal articulations. Normal pisotriquetral articulation. Normal visualized interosseous scapholunate ligament. Normal extensor tendons. Normal flexor tendons. Normal carpal tunnel with a normal median nerve. Normal carpometacarpal articulation of the thumb. Normal second through fifth carpometacarpal articulations. Normal visualized metacarpal bones. There is a small well-defined superficial mass in the subcutis adipose space dorsal to the distal ulna corresponding to the skin marker measuring 0.2 x 0.5 x 0.5 cm (AP x transverse x length). The mass is intermediate in signal intensity on T1 sequences (T1 axial image 24) and on T2 sequences (T2 sagittal images 11, 12). There is no abnormal contrast enhancement. MRI/Upper Ext Joint Only W/WO Cont IMPRESSION: Small well-defined superficial mass dorsal to the distal ulna, without specific imaging characteristics although the signal characteristics may indicate a fibrous type lesion. Small linear central perforation of the radial aspect of the triangular fibrocartilage. Electronically Signed: Shawn Villar MD at 10:09 EDT Tel , Service support ,
== END ==
PROVIDERS: PCP Family Medicine; Referring Provider Orthopaedic Surgery; Visit Provider Orthopaedic Surgery
DX: R22.31 Localized swelling, mass and lump, right upper limb (principal)
CPT/HCPCS: 73223; A9575

== ENCOUNTER → 2021-02-07 | Outpatient (CLI) | payer OTHER, SELFPAY | END | disposition home or self-care (01) | LOC: LABSPEC 16:47 | PROVIDERS: PCP Family Medicine; Visit Provider Family Medicine | DX: U07.1 COVID-19 (principal) | CPT/HCPCS: 87635; U0005; U0003 ==

== ENCOUNTER 2021-02-24 10:28 | Emergency (ER) | payer BC, SELFPAY ==
[2021-02-24] VITALS (9 sets, daily range): BP systolic 126; BP diastolic 91; PULSE 18–154; RESP 12–20; TEMP 36.8–36.9; O2SAT 98–100; BMI 26.8
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
[2021-02-24] MEDS: Ziprasidone IM 20 MG/ML VIAL IM (11:05)
--- NOTE | 2021-02-24 11:21 | CT_ITS ---
STUDY: CT BRAIN WITHOUT CONTRAST REASON FOR EXAM: Female, 30 years old. Altered mental status. RADIATION DOSAGE (If Supplied By Facility): CTDIvol = ( 44.99 ) mGy, DLP = ( 745.49 ) mGycm TECHNIQUE: Transaxial CT imaging of the brain was performed without administration of intravenous contrast material. Individualized dose optimization techniques were used for this CT. COMPARISON: No relevant priors. FINDINGS: Normal soft tissue structures. Normal calvarium. Normal size ventricles and extra-axial spaces for the patient''s age. Normal white matter tracts of the cerebral hemispheres. Normal basal ganglia and thalami. Normal brainstem. Normal cerebellum. There is no intracranial hemorrhage. There are no findings of an acute ischemic infarction. Normal visualized paranasal sinuses. CT/Brain/Head without Contrast IMPRESSION: Normal unenhanced CT scan of the brain. Electronically Signed: Jeremy Kim, at 12:14 EST Tel , Service support ,
--- NOTE | 2021-02-24 11:21 | RAD_ITS ---
STUDY: X-RAY CHEST REASON FOR EXAM: Female, 30 years old. Altered mental status TECHNIQUE: Single AP portable view of the chest. COMPARISON: None. FINDINGS: The lungs are clear and expanded. There is no demonstrated pleural abnormality. Normal size heart. Normal mediastinum and kb. Normal visualized pulmonary arteries. Normal visualized aortic arch and descending thoracic aorta. Normal visualized thoracic spine. Normal visualized ribs, clavicles, and shoulders. There is no demonstrated abnormality of the visualized soft tissue structures of the upper abdomen. RAD/Chest 1 View (Portable) IMPRESSION: Normal x-ray examination of the chest. Electronically Signed: Jeremy Kim, at 12:03 EST Tel , Service support ,
[2021-02-24 11:31] LABS: Absolute Lymphocyte Count 1.35 X10^3/uL (0.83-4.51); Absolute Neutrophil Count 10.4 X10^3/uL (2.0-7.7); Basophil# 0.03 X10^3/uL; Basophil% 0.2 % (0-1); Hematocrit 33.8 % (37-47); Lymphocyte # 1.35 X10^3/ul (0.83-4.51); Lymphocyte % 10.9 % (19-41); Mean Corp Hgb Conc 35.5 g/dL (32-36); Mean Corpuscular Volume 87.3 fL (81-99); Mean Platelet Vol. 9.3 fl (6.2-12.0); NRBC Flagged by Analyzer 0 % (0-5); Neutrophil # 10.43 X10^3/uL (2.7-7.7); Neutrophil % 84.6 % (47-70); Platelet Count 283 K/mm3 (150-450); RBC Distribution Width CV 11.7 % (11.6-14.6); RBC Distribution Width SD 37.2 fl (35.1-43.9); Red Blood Count 3.87 M/mm3 (4.2-5.4); White Blood Count 12.4 K/mm3 (4.4-11.0)
[2021-02-24 11:36] LABS: Internal QC Validated? YES +Cl - CLEAR BKGD; Pregnancy, Serum, hCG Quali. NEGATIVE Negative
[2021-02-24 11:40] LABS: Alcohol, Blood (Medical)-Serum < 3.0 mg/dL
[2021-02-24 11:44] LABS: Anion Gap 9 (5-15); BUN 14 mg/dL (7-18); BUN/Creat Ratio 16.9 RATIO (10-20); Calcium,Total 8.6 mg/dL (8.5-10.1); Chloride 105 mmol/L (98-107); Creatinine, Serum 0.83 mg/dL (0.55-1.02); EST Glomerular Filtration Rate 85 mL/min (>60); Est Glom Filt Rate - Afr Amer 102 mL/min (>60); Estimated Creatinine Clearance 98.16 ml/min; Glucose 147 mg/dL (74-106); Potassium 2.4 mmol/L (3.5-5.1); Sodium Level 137 mmol/L (136-145)
[2021-02-24 12:10] LABS: Magnesium 1.9 mg/dL (1.6-2.6)
[2021-02-24] MEDS: Potassium Chloride 10mEq/100mL 10 MEQ/100 ML IV.SOLN. 100 MEQ IV BOLUS ×4 (12:57→19:25)
[2021-02-24 15:04] LABS: Mucous, Urine 0 SEEN /hpf (<or=2+); Squamous Epithelial Cells - UA 0 SEEN /hpf (5-10)
[2021-02-24 15:06] LABS: Color, Urine Yellow (Yellow); Glucose, Dipstick Normal (Normal); Ketone-Dipstick 50 mg/dl (Negative); Leukocyte Esterase-Dipstick 25 /ul (Negative); Nitrite-Dipstick Negative (Negative); Occult Blood-Urine 150 /ul (Negative); Protein-Dipstick Negative (Negative); Specific Gravity, Urine 1.015 (1.002-1.030); Urine Bilirubin Dipstick Negative (Negative); Urine Clarity Clear (Clear); Urine Urobilinogen Normal (Normal)
[2021-02-24 15:14] LABS: Bacteria RARE /hpf (None Seen); Red Blood Cells-Urine 10-25 SEEN /hpf (0-5); White Blood Cells 10-25 SEEN /hpf (0-5)
--- NOTE | 2021-02-24 15:47 | EKG12_ITS ---
Test Reason : Blood Pressure : / mmHG Vent. Rate : 085 BPM Atrial Rate : 085 BPM P-R Int : 126 ms QRS Dur : 082 ms QT Int : 386 ms P-R-T Axes : 026 054 043 degrees QTc Int : 459 ms Normal sinus rhythm Normal ECG Confirmed by YANELIS MORGAN, RHEA ([id number]), business editor KRISTEL MONTOYA ([id number]) on 02/26/2021 10:51:16 AM Referred By: DANIELLA Confirmed By:RHEA HILARIO MD
[2021-02-24 15:57] LABS: Vista UDS pH Range 6
--- NOTE | 2021-02-24 16:00 | ED.RN ---
restraints discontinued at this time. Pt calm and cooperative. RN explained the difficulty of obtaining IV and importance of keeping IV in place. Pt agreeable.
[2021-02-24 16:10] LABS: Amphetamine Urine VISTA NEGATIVE (<1000 ng/mL); Barbiturate Urine VISTA NEGATIVE (< 200 ng/mL); Benzodiazepine Urine VISTA NEGATIVE (< 200 ng/mL); Cocaine Urine VISTA NEGATIVE (< 300 ng/mL); Ecstacy Urine VISTA NEGATIVE (< 500 ng/mL); Methadone Urine VISTA NEGATIVE (< 300 ng/mL); PCP Urine VISTA NEGATIVE (< 25 ng/mL); THC Urine VISTA POSITIVE (< 50 ng/mL)
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
[2021-02-24] MEDS: Potassium Chloride Oral Tablet 20 MEQ 40 MEQ PO (19:27)
[2021-02-24] MEDS: Fluticasone 0.05% 1 SPRAY NASAL.SRY NASAL (20:47)
--- NOTE | 2021-02-24 21:35 | CM.ED ---
CAROLYN Note Patient's requested to speak to this technical writer and editor. He said that he is concerned that patient may go to psych facility. He feels that patient is at her baseline. Patient's said that patient has an appointment on Friday for a full body evaluation. CAROLYN explained that the MD is evaluating patient and her medical condition. Patient's verbalized understanding. Plan: To be determined Sondra VELASCO
--- NOTE | 2021-02-24 22:30 | CM.ED ---
SW Note SW updated manager linux and MD that this underwriter mortgage loan has completed packet for patient for psych placement. However, patient is not medically clear at this time. Crisis will follow up. CAROLYN spoke to patient's and patient. Patient is very intense. RN is drawing patient's blood currently. Per MD plan is for psychiatric placement Plan: Psychiatric Placement Sondra VELASCO
--- NOTE | 2021-02-24 23:48 | EKG12_ITS ---
Test Reason : HIGH POTASSIUM Blood Pressure : / mmHG Vent. Rate : 085 BPM Atrial Rate : 085 BPM P-R Int : 150 ms QRS Dur : 074 ms QT Int : 364 ms P-R-T Axes : 062 047 043 degrees QTc Int : 433 ms Normal sinus rhythm Normal ECG Confirmed by YANELIS MORGAN, RHEA ([id number]), newspaper editor managing KRISTEL MONTOYA ([id number]) on 02/26/2021 10:57:28 AM Referred By: DEE Confirmed By:RHEA HILARIO MD
[2021-02-25 00:28] LABS: Potassium 3.7 mmol/L (3.5-5.1)
--- NOTE | 2021-02-25 00:48 | ED.RN ---
CALLED [facility]IS[facility] AND FAXED THE PAPERWORK TO [facility]
[2021-02-25 00:59] VITALS: O2SAT 98
[2021-02-25 01:47] VITALS: BP 142/96; PULSE 106; RESP 12; O2SAT 98
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
[2021-02-25] MEDS: diazePAM 5 MG Tablet PO (02:06)
[2021-02-25 02:50] VITALS: PULSE 81
--- NOTE | 2021-02-26 12:23 | CM.ED ---
Addendum entered by Sondra Weeks 02/26/21 13:54: Ciara from Crisis called. Accepting MD is Marcelino. Sondra VELASCO Original Note: CAROLYN LEON was advised that patient was accepted at [facility]. CAROLYN called crisis and left voice mail for Ciara about accepting MD. CAROLYN spoke to patient's , Kota, and provided him emotional support. CAROLYN provided him with address and phone number for [facility]. Plan: Patient is being admitted to [facility] Sondra VELASCO
== END 2021-02-25 03:13 | disposition home or self-care (01) ==
PROVIDERS: Emergency Medicine; Student in an Organized Health Care Education/Training Program; Emergency Provider Emergency Medicine; PCP Family Medicine; Visit Provider Emergency Medicine
DX: F23 Brief psychotic disorder (principal); E87.6 Hypokalemia; G89.29 Other chronic pain; F12.90 Cannabis use, unspecified, uncomplicated; Z86.16 Personal history of COVID-19; Z79.52 Long term (current) use of systemic steroids
CPT/HCPCS: 36415; 70450; 71045; 80048; 80307; 81001; 82077; 83735; 84132; 84703; 85025; 87426; 93005; 96365; 96366; 96372; 99285; J7030; A4216; J3486

== ENCOUNTER 2021-02-25 13:37 | Emergency (ER) | payer BC, SELFPAY ==
[2021-02-25 13:39] VITALS: BP 168/111; PULSE 131; RESP 16; TEMP 36.4; O2SAT 100; BMI 27.3
--- NOTE | 2021-02-25 13:59 | EKG12_ITS ---
Test Reason : AMS Blood Pressure : / mmHG Vent. Rate : 125 BPM Atrial Rate : 125 BPM P-R Int : 140 ms QRS Dur : 070 ms QT Int : 306 ms P-R-T Axes : 069 065 051 degrees QTc Int : 441 ms Sinus tachycardia Otherwise normal ECG Confirmed by ANNALISA MORGAN, VINOD ([id number]), website/blog editor KRISTEL MONTOYA ([id number]) on 02/26/2021 1:05:19 PM Referred By: DANIELLA Confirmed By:VINOD FANG MD
[2021-02-25 15:14] LABS: Absolute Lymphocyte Count 1.97 X10^3/uL (0.83-4.51); Absolute Neutrophil Count 5.2 X10^3/uL (2.0-7.7); Basophil# 0.03 X10^3/uL; Basophil% 0.4 % (0-1); Eosinophil# 0.03 X10^3/uL; Eosinophils% 0.4 % (0-5); Hematocrit 38.5 % (37-47); Hemoglobin 12.6 g/dL (12.0-15.0); Lymphocyte # 1.97 X10^3/ul (0.83-4.51); Lymphocyte % 25.4 % (19-41); Mean Corp Hgb Conc 32.7 g/dL (32-36); Mean Corpuscular Hgb 30.1 pg (27.0-32.0); Mean Corpuscular Volume 92.1 fL (81-99); Monocyte# 0.53 X10^3/uL; Monocyte% 6.8 % (0-10); NRBC Flagged by Analyzer 0 % (0-5); Neutrophil # 5.19 X10^3/uL (2.7-7.7); Neutrophil % 66.7 % (47-70); Platelet Count 262 K/mm3 (150-450); RBC Distribution Width CV 11.7 % (11.6-14.6); RBC Distribution Width SD 39.5 fl (35.1-43.9); Red Blood Count 4.18 M/mm3 (4.2-5.4); White Blood Count 7.8 K/mm3 (4.4-11.0)
[2021-02-25 15:25] LABS: Anion Gap 8 (5-15); BUN 4 mg/dL (7-18); BUN/Creat Ratio 4.6 RATIO (10-20); Calcium,Total 9.2 mg/dL (8.5-10.1); Chloride 106 mmol/L (98-107); Creatinine, Serum 0.88 mg/dL (0.55-1.02); EST Glomerular Filtration Rate 80 mL/min (>60); Est Glom Filt Rate - Afr Amer 96 mL/min (>60); Estimated Creatinine Clearance 92.58 ml/min; Glucose 125 mg/dL (74-106); Potassium 3.5 mmol/L (3.5-5.1); Sodium Level 138 mmol/L (136-145)
[2021-02-25 15:40] LABS: Alcohol, Blood (Medical)-Serum < 3.0 mg/dL
--- NOTE | 2021-02-25 15:49 | EDS_ITS ---
HPI HPI - Psych History of Present Illness Chief Complaint: Alt LOC Narrative Narrative: Patient seen for the second time in 2 days for erratic behavior, latasha, aggression. The patient was seen by myself yesterday and was worked up for this. She was noted to be positive for cannabinoids and to have significant hypokalemia which need to be repleted in the ER. She had an extended stay in the ER and needed to be restrained with one arm in order to get potassium into her arm via IV. She required sedation with Geodon. Patient was signed out to the incoming ED physician who again signed this out to the overnight physician who would reevaluate her in the morning and apparently the had thought she was back to her baseline mentation. After she went home patient became acutely erratic again. She is been aggressive with her . She claims karly t her blood sugar had dropped and she went to [facility] and bought a glucometer in order to check her blood sugar and stated it was low and she has been eating applesauce to keep her blood sugar up. The states that she is exact like she was yesterday prior to coming to the emergency room. [facility] Medical History Chronic neck and back pain Fatigue Limb weakness Severe headache Shoulder pain Home Medications NK 02/24/21 [History Last Taken Unknown] Allergy/AdvReac Type Severity Reaction Status Date / Time nickel Allergy Rash Verified 02/25/21 13:45 Penicillins Allergy Anaphylaxis Verified 02/25/21 13:45 Surgical History excision of endometriosis History of appendectomy History of discectomy Social History Smoking Status: Never smoker alcohol intake: current alcohol intake frequency: a few times a month substance use type: does not use ROS ROS ED Review of Systems ROS Unobtainable: due to mental status EXAM Physical Exam Const Vital Signs: 02/25/21 13:39 02/25/21 19:26 Temperature 97.6 F L Temperature Source Temporal Pulse Rate 131 H 125 H Respiratory Rate 16 18 Blood Pressure 168/111 H 133/93 H Blood Pressure Mean 130 106 Pulse Ox 100 98 Oxygen Delivery Method Room Air Room Air Positive well nourished and unkempt General Appearance ED: unkempt and NAD HEENT Reports moist mucous membranes normocephalic Eyes PERRL and EOMs intact bilaterally Resp normal respiratory effort and clear to auscultation bilaterally Cardio Rate: tachycardic Rhythm: regular rhythm Extremity normal to inspection General Extremety ED: Yes tenderness Neuro CN's II-XII intact bilaterally and no sensory deficits noted Sensorium / Orientation: alert Motor Exam: strength 5/5 throughout Psych Appearance: unkempt and bizarre Attitude: bizarre, uncooperative, agitated and aggressive Activity / Motor Behavior: psychomotor agitation and disorganized Speech: excessive and rapid Thought Process: disorganized and flight of ideas Thought Content: No suicidality and No homicidality Memory / Cognition: cognition impaired Insight: poor Judgement: poor Skin Skin Narrative: Bruising to the right antecubital fossa. MDM MDM MDM Narrative Medical decision making narrative: Patient seen again for the second time in 2 days for psychosis, agitation, aggression, and latasha. She exhibits pill bizarre behavior and is difficult to redirect. She is speaking rapidly. I obtained an EKG which on my interpretation shows sinus tachycardia at 125 bpm without sign of ischemic change. There is no peaked T waves. Lab work today is all normal. EtOH negative. Drug abuse screen consistent with her cannabinoid prescription. Patient is medically cleared for psychiatric evaluation. Patient evaluated by crisis and they agree the patient needs to be inpatient. Patient will be pink slipped. Patient will be signed out to incoming ED physician for monitoring until she is placed. Lab Data Attestation: I reviewed the patient's lab results. Labs: Laboratory Results - last 24 hr 02/25/21 02/25/21 02/25/21 15:00 15:00 15:00 WBC 7.8 RBC 4.18 L Hgb 12.6 Hct 38.5 MCV 92.1 D MCH 30.1 MCHC 32.7 D RDW Std Deviation 39.5 RDW Coeff of Luanne 11.7 Plt Count 262 MPV 10.0 Immature Gran % (Auto) 0.300 Neut % (Auto) 66.7 Lymph % (Auto) 25.4 [place] % (Auto) 6.8 Eos % (Auto) 0.4 Baso % (Auto) 0.4 Absolute Neuts (auto) 5.2 Absolute Lymphs (auto) 1.97 Nucleated RBC % 0 Sodium 138 Potassium 3.5 Chloride 106 Carbon Dioxide 24.0 Anion Gap 8 BUN 4 L Creatinine 0.88 Estim Creat Clear Calc 92.58 Est GFR (MDRD) Af Amer 96 Est GFR (MDRD) Non-Af 80 BUN/Creatinine Ratio 4.6 L Glucose 125 H Calcium 9.2 Urine Opiates Screen Urine Methadone Screen Ur Barbiturates Screen Ur Phencyclidine Scrn Ur Amphetamines Screen U Methamphetamin-MDMA U Benzodiazepines Scrn Urine Cocaine Screen U Cannabinoids Screen Ur Drug Screen Comment Ethyl Alcohol < 3.0 02/25/21 15:41 WBC RBC Hgb Hct MCV MCH MCHC RDW Std Deviation RDW Coeff of Luanne Plt Count MPV Immature Gran % (Auto) Neut % (Auto) Lymph % (Auto) [place] % (Auto) Eos % (Auto) Baso % (Auto) Absolute Neuts (auto) Absolute Lymphs (auto) Nucleated RBC % Sodium Potassium Chloride Carbon Dioxide Anion Gap BUN Creatinine Estim Creat Clear Calc Est GFR (MDRD) Af Amer Est GFR (MDRD) Non-Af BUN/Creatinine Ratio Glucose Calcium Urine Opiates Screen NEGATIVE Urine Methadone Screen NEGATIVE Ur Barbiturates Screen NEGATIVE Ur Phencyclidine Scrn NEGATIVE Ur Amphetamines Screen NEGATIVE U Methamphetamin-MDMA NEGATIVE U Benzodiazepines Scrn NEGATIVE Urine Cocaine Screen NEGATIVE U Cannabinoids Screen POSITIVE H Ur Drug Screen Comment Ethyl Alcohol Discharge Plan Triage Chief Complaint: Alt LOC ED Provider: Jose Lucero Dx/Rx/DC Orders Prescriptions: No Action NK RF: 0 Primary Care Provider: Elena Cowan
[2021-02-25] MEDS: Ziprasidone IM 20 MG/ML VIAL IM (15:55)
--- NOTE | 2021-02-25 15:55 | ED.RN ---
pt. pacing in room. verbally upset. at bedside. states she very agitated. Roselyn Abbott rn, this nurse, estiven bryant. to room to medicate. pt. talking fast. stating she is freaking out and just needs to breath. pt. states i am tired. and want to go home to shower, and hug the dog. informed pt. that she is pink slipped and cannot leave. pt. finally sets down on bed and allows for medication.
[2021-02-25 16:04] LABS: Amphetamine Urine VISTA NEGATIVE (<1000 ng/mL); Barbiturate Urine VISTA NEGATIVE (< 200 ng/mL); Benzodiazepine Urine VISTA NEGATIVE (< 200 ng/mL); Cocaine Urine VISTA NEGATIVE (< 300 ng/mL); Ecstacy Urine VISTA NEGATIVE (< 500 ng/mL); Methadone Urine VISTA NEGATIVE (< 300 ng/mL); PCP Urine VISTA NEGATIVE (< 25 ng/mL); THC Urine VISTA POSITIVE (< 50 ng/mL); Vista UDS pH Range 6
--- NOTE | 2021-02-25 19:03 | ED.RN ---
pt refused the promethazine and Valium at this time. pt will let staff know if she changes her mind.
[2021-02-25] MEDS: proMETHazine 25 MG Tablet PO (19:19)
[2021-02-25 19:26] VITALS: BP 133/93; PULSE 125; RESP 18; O2SAT 98
--- NOTE | 2021-02-25 21:26 | ED.RN ---
pt resting quietly in bed with eyes closed, respirations even and unlabored.
[2021-02-25 23:09] VITALS: RESP 16
[2021-02-25] MEDS: diazePAM 2 MG Tablet PO (23:49)
[2021-02-26] VITALS (7 sets, daily range): BP systolic 144–153; BP diastolic 92–100; PULSE 89–139; RESP 15–22; TEMP 36.4; O2SAT 94–99
[2021-02-26] MEDS: Ziprasidone IM 20 MG/ML VIAL IM (01:00)
--- NOTE | 2021-02-26 02:20 | ED.RN ---
[facility] CALLED AND THEY DECLINED THE PATIENT DUE TO STILL BEING DIZZY, AND NOT EATING.
[2021-02-26] MEDS: diazePAM 2 MG Tablet PO (06:24)
[2021-02-26 08:30] LABS: Bacteria 0 SEEN /hpf (None Seen); Mucous, Urine 0 SEEN /hpf (<or=2+); Red Blood Cells-Urine 0 SEEN /hpf (0-5); Squamous Epithelial Cells - UA 0 SEEN /hpf (5-10); White Blood Cells 0 SEEN /hpf (0-5)
[2021-02-26 08:34] LABS: Color, Urine Straw (Yellow); Glucose, Dipstick Normal (Normal); Ketone-Dipstick Negative (Negative); Leukocyte Esterase-Dipstick Negative /ul (Negative); Nitrite-Dipstick Negative (Negative); Occult Blood-Urine 25 /ul (Negative); Protein-Dipstick Negative (Negative); Specific Gravity, Urine 1.005 (1.002-1.030); Urine Bilirubin Dipstick Negative (Negative); Urine Urobilinogen Normal (Normal)
[2021-02-26 08:43] LABS: Urine Clarity Clear (Clear)
--- NOTE | 2021-02-26 09:20 | ED.RN ---
pt continues to pace around room since left. explained the valium pt was given should help with any muscle spasms she is having.
--- NOTE | 2021-02-26 10:11 | ED.RN ---
AVIS ANDERSON CALLED AND ASKED ABOUT PT BEHAVIOR AND MEDS GIVEN. STATED THEY WILL TALK TO THEIR DR AND LET US KNOW.
[2021-02-26] MEDS: Ibuprofen 600 MG Tablet PO (11:50)
== END 2021-02-26 11:52 ==
LOC: ED 14:07
PROVIDERS: Emergency Medicine; Emergency Provider Student in an Organized Health Care Education/Training Program; PCP Family Medicine; Visit Provider Student in an Organized Health Care Education/Training Program
DX: F30.2 Manic episode, severe with psychotic symptoms (principal); R45.1 Restlessness and agitation
CPT/HCPCS: 36415; 80048; 80307; 81001; 82077; 85025; 87426; 93005; 96372; 99285; J7030; A4216; J3486

== ENCOUNTER → 2021-07-23 | Outpatient (CLI) | payer BC, SELFPAY ==
[2021-07-23 10:42] LABS: Color, Urine Yellow (Yellow); Glucose, Dipstick Normal (Normal); Ketone-Dipstick Negative (Negative); Leukocyte Esterase-Dipstick Negative /ul (Negative); Nitrite-Dipstick Negative (Negative); Occult Blood-Urine 150 /ul (Negative); Protein-Dipstick Negative (Negative); Specific Gravity, Urine 1.015 (1.002-1.030); Urine Bilirubin Dipstick Negative (Negative); Urine Clarity Sl. Cloudy (Clear); Urine Urobilinogen Normal (Normal)
[2021-07-23 10:45] LABS: Hematocrit 40.3 % (37-47); Hemoglobin 13.4 g/dL (12.0-15.0); Mean Corp Hgb Conc 33.3 g/dL (32-36); Mean Corpuscular Volume 90.2 fL (81-99); Mean Platelet Vol. 9.7 fl (6.2-12.0); Platelet Count 392 K/mm3 (150-450); RBC Distribution Width CV 11.9 % (11.6-14.6); RBC Distribution Width SD 39.1 fl (35.1-43.9); Red Blood Count 4.47 M/mm3 (4.2-5.4); White Blood Count 9.3 K/mm3 (4.4-11.0)
[2021-07-23 11:26] LABS: ALB/GLOB Ratio 0.8 RATIO (0.9-2.4); AST(SGOT) 11 U/L (15-37); Alanine Aminotransfer ALT/SGPT 22 U/L (13-56); Albumin, Serum 3.6 g/dL (3.2-5.0); Alkaline Phosphatase 99 U/L (45-117); Anion Gap 7 (5-15); BUN 14 mg/dL (7-18); BUN/Creat Ratio 16.8 RATIO (10-20); Calcium,Total 9.2 mg/dL (8.5-10.1); Chloride 104 mmol/L (98-107); Creatinine, Serum 0.83 mg/dL (0.55-1.02); EST Glomerular Filtration Rate 84 mL/min (>60); Est Glom Filt Rate - Afr Amer 102 mL/min (>60); Globulin 4.4 g/dL (2.2-4.2); Glucose 77 mg/dL (74-106); Potassium 3.9 mmol/L (3.5-5.1); Rheumatoid Factor < 10.0 IU/mL (<15); Sodium Level 137 mmol/L (136-145); T4 Free Direct 0.99 ng/dL (0.76-1.46); Thyroid Stim Hormone (TSH) 2.82 uIU/mL (0.358-3.74)
[2021-07-24 15:55] LABS: ANTINUCLEAR ANTIBODIES DIRECT Negative (Negative)
[2021-07-25 00:07] LABS: Complement C3 209 mg/dL (82-167)
[2021-07-26 17:37] LABS: CCP IgG Antibodies 7 units (0-19)
== END | disposition home or self-care (01) ==
PROVIDERS: PCP Family Medicine; Referring Provider Podiatrist; Visit Provider Podiatrist
DX: Z79.899 Other long term (current) drug therapy (principal)
CPT/HCPCS: 36415; 80053; 81002; 84439; 84443; 85027; 86038; 86140; 86160; 86200; 86225; 86235; 86431

== ENCOUNTER → 2021-07-26 | Outpatient (CLI) | payer BC, SELFPAY ==
--- NOTE | 2021-07-26 14:38 | VDLE_ITS ---
Reason For Study: Left calf pain Procedure LEFT This is a venous duplex using B-mode, color GSV is normal. flow and spectral Doppler. CFV is compressible, spontaneous, phasic, Exam performed in department. competent, and demonstrates normal A preliminary report was called and/or faxed augmentation. to [facility]. FV is compressible, spontaneous, phasic, competent and demonstrates normal augmentation. POP V is compressible, spontaneous, phasic, competent and demonstrates normal augmentation. T/P Trunk is compressible. PTV is compressible. LT PerV is compressible. VL/Venous Duplex US, Unilateral Interpretation Summary Deep veins of the left lower extremity are patent and compressible segmentally. There is no evidence of left lower extremity deep vein thrombosis. Valvular competence appears intac t within the proximal deep venous system on the left . The left great saphenous vein appears patent a nd compressible segmentally. Ordering Physician: Elena Cowan Referring Physician: Elena Cowan Performed By: Kayley Zamorano RVT
== END | disposition home or self-care (01) ==
LOC: CVS 14:36
PROVIDERS: PCP Family Medicine; Visit Provider Family Medicine
DX: M79.662 Pain in left lower leg (principal)
CPT/HCPCS: 93971

== ENCOUNTER → 2021-10-03 | Outpatient (CLI) | payer BC, SELFPAY ==
[2021-10-03 10:12] LABS: Erythrocyte Sedimentation Rate 10 mm/hr (0-30)
[2021-10-03 10:49] LABS: ALB/GLOB Ratio 0.9 RATIO (0.9-2.4); AST(SGOT) 16 U/L (15-37); Alanine Aminotransfer ALT/SGPT 25 U/L (13-56); Albumin, Serum 3.4 g/dL (3.2-5.0); Alkaline Phosphatase 75 U/L (45-117); Anion Gap 9 (5-15); BUN 11 mg/dL (7-18); BUN/Creat Ratio 12.7 RATIO (10-20); CRP 9.86 mg/L (0.0-3.0); Calcium,Total 8.8 mg/dL (8.5-10.1); Chloride 107 mmol/L (98-107); Creatinine, Serum 0.87 mg/dL (0.55-1.02); EST Glomerular Filtration Rate 80 mL/min (>60); Est Glom Filt Rate - Afr Amer 97 mL/min (>60); Globulin 3.8 g/dL (2.2-4.2); Glucose 83 mg/dL (74-106); Magnesium 2.1 mg/dL (1.6-2.6); Potassium 3.6 mmol/L (3.5-5.1); Protein, Total 7.2 g/dL (6.4-8.2); Sodium Level 139 mmol/L (136-145)
== END | disposition home or self-care (01) ==
PROVIDERS: PCP Family Medicine; Referring Provider Family Medicine; Visit Provider Family Medicine
DX: M25.50 Pain in unspecified joint (principal); E87.6 Hypokalemia; Z51.81 Encounter for therapeutic drug level monitoring
CPT/HCPCS: 36415; 80053; 83735; 85652; 86140

== ENCOUNTER → 2021-11-17 | Outpatient (CLI) | payer BC, SELFPAY ==
[2021-11-17 11:10] LABS: Erythrocyte Sedimentation Rate 4 mm/hr (0-30)
[2021-11-17 11:32] LABS: CRP 4.17 mg/L (0.0-3.0)
== END | disposition home or self-care (01) ==
PROVIDERS: PCP Family Medicine; Referring Provider Family Medicine; Visit Provider Family Medicine
DX: M25.50 Pain in unspecified joint (principal)
CPT/HCPCS: 36415; 85652; 86140

== ENCOUNTER → 2021-11-21 | Outpatient (CLI) | payer BC, SELFPAY ==
--- NOTE | 2021-11-21 07:54 | RAD_ITS ---
STUDY: AIR CONTRAST UPPER GI SERIES and esophagram. REASON FOR EXAM: Female, 31 years old. DIFFICULTY SWALLOWING FLUOROSCOPY TIME (if supplied): (1 minute and 28 seconds) minutes/seconds. 20 images were obtained. TECHNIQUE: SINGLE CONTRAST AND AIR CONTRAST FLUOROSCOPIC IMAGES. COMPARISON: None. FINDINGS: The cervical esophagus demonstrates normal motility without aspiration. There is no stricture or extrinsic mass effect. No intraluminal polypoid mass is identified. The thoracic esophagus distends well without stricture or mucosal fold thickening. No mucosal ulcerations are identified. There is no extrinsic mass effect. There are no diverticula. No hiatal hernia or gastroesophageal reflux was identified. The patient was unable to ingest the 12 mm tablet of barium. The stomach distends well without mucosal fold thickening or mucosal ulceration. There is no intraluminal mass. The duodenal bulb is freely distensible without deformity or ulceration. The duodenal sweep is normal in position and caliber. RAD/Upper GI w/BA Swallow IMPRESSION: Normal air-contrast esophagram and upper GI series. Electronically Signed: Johan Johnston MD at 15:19 EDT ,
== END | disposition home or self-care (01) ==
LOC: RAD 07:52
PROVIDERS: PCP Family Medicine; Referring Provider Family Medicine; Visit Provider Family Medicine
DX: R13.10 Dysphagia, unspecified (principal)
CPT/HCPCS: 74246

== ENCOUNTER → 2022-01-12 | Outpatient (CLI) | payer BC, SELFPAY ==
[2022-01-12 12:40] LABS: Absolute Lymphocyte Count 3.13 X10^3/uL (0.83-4.51); Absolute Neutrophil Count 4.3 X10^3/uL (2.0-7.7); Basophil# 0.06 X10^3/uL; Basophil% 0.7 % (0-1); Eosinophil# 0.13 X10^3/uL; Eosinophils% 1.6 % (0-5); Hematocrit 42.6 % (37-47); Hemoglobin 14.5 g/dL (12.0-15.0); Lymphocyte # 3.13 X10^3/ul (0.83-4.51); Lymphocyte % 38.5 % (19-41); Mean Corpuscular Hgb 31.1 pg (27.0-32.0); Mean Corpuscular Volume 91.4 fL (81-99); Mean Platelet Vol. 10.1 fl (6.2-12.0); Monocyte# 0.53 X10^3/uL; Monocyte% 6.5 % (0-10); NRBC Flagged by Analyzer 0 % (0-5); Neutrophil # 4.26 X10^3/uL (2.7-7.7); Neutrophil % 52.5 % (47-70); Platelet Count 341 K/mm3 (150-450); RBC Distribution Width CV 11.9 % (11.6-14.6); RBC Distribution Width SD 39.9 fl (35.1-43.9); Red Blood Count 4.66 M/mm3 (4.2-5.4); White Blood Count 8.1 K/mm3 (4.4-11.0)
[2022-01-12 12:59] LABS: ALB/GLOB Ratio 1.2 RATIO (0.9-2.4); AST(SGOT) 12 U/L (15-37); Alanine Aminotransfer ALT/SGPT 27 U/L (13-56); Albumin, Serum 4.1 g/dL (3.2-5.0); Alkaline Phosphatase 102 U/L (45-117); Anion Gap 5 (5-15); BUN 17 mg/dL (7-18); BUN/Creat Ratio 20.4 RATIO (10-20); Calcium,Total 9.3 mg/dL (8.5-10.1); Chloride 105 mmol/L (98-107); Cholesterol 261 mg/dL (200); Creatinine, Serum 0.83 mg/dL (0.55-1.02); EST Glomerular Filtration Rate 84 mL/min (>60); Est Glom Filt Rate - Afr Amer 101 mL/min (>60); Estradiol 68.6 pg/mL; Ferritin 22 ng/mL (8-252); Follicle Stimulating Hormone 6.6 mIU/mL; Globulin 3.5 g/dL (2.2-4.2); Glucose 93 mg/dL (74-106); High Density Lipoprotein 59 mg/dL; Iron 72 ug/dL (50-170); Luteinizing Hormone 6.5 mIU/mL; Magnesium 2.4 mg/dL (1.6-2.6); Potassium 4.2 mmol/L (3.5-5.1); Protein, Total 7.6 g/dL (6.4-8.2); Sodium Level 139 mmol/L (136-145); Triglycerides 139 mg/dL; Very Low Density Lipoprotein 28 mg/dL (5-40)
[2022-01-14 09:03] LABS: Progesterone Level 0.77 ng/mL (See Comment); Vitamin B12 422 pg/mL (211-911); Vitamin D,25 Hydroxy 57.1 ng/mL
== END | disposition home or self-care (01) ==
LOC: LABSPEC 12:14
PROVIDERS: PCP Family Medicine; Visit Provider Nurse Practitioner Family
DX: N80.9 Endometriosis, unspecified (principal); U09.9 Post COVID-19 condition, unspecified; R53.83 Other fatigue; R52 Pain, unspecified; R41.3 Other amnesia; G47.9 Sleep disorder, unspecified; G43.909 Migraine, unspecified, not intractable, without status migrainosus
CPT/HCPCS: 80053; 80061; 82306; 82607; 82627; 82670; 82728; 83001; 83002; 83540; 83735; 84144; 84403; 85025; 82626

== ENCOUNTER → 2022-01-18 | Outpatient (CLI) | payer BC, SELFPAY ==
--- NOTE | 2022-01-18 13:52 | ST.MBS ---
Modified Barium Swallow - Patient Information Study Date: 01/18/22 Study Time: 13:00 Direct Billable Minutes: 90 Total Minutes procedure & reportin Diagnosis: Dysphagia, unspecified (R13.10) Referring Physician: Elena Cowan Reason for Referral: Objectively assess swallow function, assess risk for aspiration, and determine recommendations for least restrictive diet textures and compensatory strategies to improve safety of swallow. Medical History: The patient is a 31-year-old female with PMH including difficulty swallowing, GERD, COVID-19 (January 2021), bilateral tonsillectomy (April 2021), and PNA (as a child). The patient reports years of difficulty swallowing characterized by food feeling caught in her throat. At times, she will cough, gag, and/or regurgitate foods. She has never had a choking episode. She reports her swallowing difficulty worsening following COVID-19 and her tonsillectomy. She manages GERD with omeprazole, which she has taken for ~1 year. If she misses taking the medication, she feels reflux symptoms return that day. She denies difficulty swallowing liquids. She does have difficulty swallowing pills and prefers to take them with applesauce. Current Diet Ordered: Regular textures / Thin liquids Dentition: WNL Mental Status: WNL Respiratory Status: Oxygenating on Room Air - Penetration-Aspiration Scale Penetration-Aspiration Scale: OBJECTIVE ASSESSMENT OF SWALLOW FUNCTION (QUANTITATIVE ? PER TRIAL): PENETRATION / ASPIRATION SCALE (CORBETT): 1 = does not enter airway 2 = enters airway/above vocal folds/ejected 3 = enters airway/above vocal folds/not ejected 4 = enters airway/contacts vocal folds/ejected 5 = enters airway/contacts vocal folds/not ejected 6 = enters airway/below vocal folds/ejected 7 = enters airway/below vocal folds/not ejected despite effort 8 = enters airway/below vocal folds/no effort VIDEOFLOROSCOPIC SCALE SCORE (CORBETT): Grade I = aspiration of material that has penetrated into the laryngeal vestibule, intact cough reflex Grade II = aspiration < 10 % of the bolus, intact cough reflex Grade III = aspiration of < 10 % of the bolus, reduced cough reflex or aspiration of > 10 % of the bolus, intact cough reflex Grade IV = aspiration of > 10 % of the bolus, reduced cough reflex - Penetration-Aspiration Scale Score Thin Liquid via teaspoon Result: 1= does not enter airway Thin Liquid via teaspoon Trial 2 Result: 1= does not enter airway Thin Liquid via small single sip from cup Result: 1= does not enter airway Thin Liquid via sequential sips from cup Result: 1= does not enter airway Netarts Thick Liquid via small single sip from cup Result: 1= does not enter airway Honey Thick Liquid via small single sip from cup Result: 1= does not enter airway Pudding via teaspoon with esophageal screen Result: 1= does not enter airway Tarrant gummies with barium coating Result: 1= does not enter airway Comment: Pt brought in peach-ring gummy candy and requested swallowing with barium for the study as these often feel stuck in her throat. HOME DEMONSTRATION AGENT cleared trials of gummy candy with engineering manager electronics, [employer]ark[employer], who okayed HOME DEMONSTRATION AGENT to administer pt's food from home with barium. Following the trial, the patient verbalized sensation of gummy caught in her throat, but only trace barium contrast present in the pharynx. Sensation of pharyngeal retention could possibly be globus sensation due to patient's history of reflux. 1/2 Cookie with barium coating Result: 1= does not enter airway Thin Liquid via sequential sips from straw Result: 1= does not enter airway Barium Tablet with water Result: 1= does not enter airway - Oral Phase Labial Seal: No Labial Escape Tongue Control During Bolus Hold: Posterior escape of less than half of bolus Bolus Preparation/Mastication: Timely and efficient chewing and mashing Bolus Transport/Lingual Motion: Brisk tongue motion Oral Residue: Residue collection on oral structures - piecemeal deglutition of gummy candy and cookie - Pharyngeal Phase Initiation of Pharyngeal Swallow: Bolus head in valleculae Soft Palate Elevation: No bolus between soft palate and pharyngeal wall Laryngeal Elevation: Comp. Superior move thyroid cart w/comp. apprx arytenoid cart-epig pet Anterior Hyoid Excursion: Complete anterior movement Epiglottic Movement: Complete inversion Laryngeal Vestibule Closure at Height of Swallow: Complete; no air/contrast in laryngeal vestibule Pharyngeal Stripping Wave: Present - diminished Pharyngoesophageal Segment Opening: Complete distension and complete duration; no obstruction of flow Tongue Base Retraction: Narrow column of contrast between tongue base & post. pharyngeal wall Pharyngeal Residue: Collection of residue within or on pharyngeal structures - effectively cleared with independent use of second swallow - Esophageal Phase Esophageal Clearance: Complete clearance - Diagnosis/Impression Diagnosis: Mild pharyngeal phase dysphagia (R13.12) Impression: The pharyngeal phase is primarily marked by... -Mildly decreased tongue base retraction and mildly diminished pharyngeal stripping wave with resulting mild pharyngeal residues after the swallow. The patient effectively cleared these residues with use independent use of double swallows. -No aspiration or laryngeal penetration observed during the study. - Recommendations Diet: Regular Textures, Thin Liquids Compensatory Strategies: Small Bites, Small Sips, Slow Rate, Multiple Swallows, Alternate bites/solids and sips/liquids, Sitting upright, Remain sitting upright for 30 minutes after PO intake Recommend Repeat Modified Barium Swallow: No Need for Skilled Speech Therapy Services: Yes Comment: Will recommend OP ST evaluation and treatment to train the patient in recommended oropharyngeal exercises to promote improved tongue base retraction and pharyngeal contraction (Johana, tongue retractions, effortful swallows). Pt verbalized good awareness of recommended safe swallowing precautions. Pt may also benefit from reflux education. HOME DEMONSTRATION AGENT is suspecting that some of the patient's complaints of pharyngeal retention may be due to globus sensation from reflux - as the patient verbalized sensation of pharyngeal retention of gummy candy during the study with only trace barium was present in the pharynx. Education Completed: 1. Described result of evaluation., 2. Pt understands evaluation & agrees with goals and treatment plan., 7. Pt requires further education on strategies & risks. - Status Active ST Patient: Active - Contact Information [facility] Speech Therapy:: Josey Garcia M.A. [facility]-HOME DEMONSTRATION AGENT Speech-Language Pathologist [facility] [address] [place] [address] [email or web address] [phone] 01/18/22 14:22
== END | disposition home or self-care (01) ==
LOC: RAD 12:55
PROVIDERS: PCP Family Medicine; Visit Provider Family Medicine
DX: R13.10 Dysphagia, unspecified (principal)
CPT/HCPCS: 74230; 92611

== ENCOUNTER 2022-03-15 08:00 | Outpatient (RCR) | payer BC, SELFPAY ==
--- NOTE | 2022-02-26 09:02 | HP.PTEVAL ---
Patient's Visit Information KRISTEL VANEGAS is a 31 year old F referred to Physical Therapy by Dr. Elena Cowan DO with a diagnosis of R lateral foot pain. Date of Evaluation: 02/26/22 Physical Therapist: Raheem Mathew, PT, ATC - Visit Plan Frequency: 2-3x /Week Duration: 4-6 Weeks Plan: R ankle stretching and strengthening, balance and proprio, core strengthening, bike, and HEP - Subjective Pt reports her R lateral foot has been sore for approximately one year. Pt reports she was sprinting at the time and noticed pain in her R foot ever since. Pt reports she has had several x-rays which revealed no significant findings. Pt reports her pain is better when she is not standing on her feet for 8 hours, like on the weekends. Pt notes her job at [employer] requires her to stand on the hard ground for a lot of the time. Pt reports no sleep difficulty at this time secondary to pain, but she notes severe pain in the mornings upon awakening. Pt reports she is unable to run at this time secondary to pain. Pt also notes she is very limited at work when pushing skids secondary to pain. Pt denies tingling or numbness at this time. 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 2/10 pain at rest, 8/10 pain at worst (when I move it wrong) - Pain R lateral foot Pain Intensity (Out of 10): 2 Pain Intensity Range: 8 - Objective Neuro: B LE sensation is WNL to light touch. B patellar reflex= 2/3. Palpation: Pt is very sore throughout the body of 5th metatarsal. No obvious deformity at this time. Minor pain along peroneal brevis insertion. ROM: L ankle DF= 9, PF= 70 degrees; R ankle DF= 8, PF= 70 degrees. MMT: B ankles are grossly 4+/5 to 5/5. Gait: Pt ambulates with early pronation of B feet during stance phase. - Balance/Special Test Scores Lower Extremity Functional Score: 69 - Goals Goal 1:: Decrease R lateral foot pain x 50% to aid with prolonged ambulation Goal Time Frame: 4-6 Weeks Goal 2:: Increase R ankle strength x 1 grade to aid with stair negotiation Goal Time Frame: 4-6 Weeks Goal 3:: Increase B ankle DF ROM x 5 degrees to aid with decreasing R foot pain Goal Time Frame: 4-6 Weeks Goal 4:: I with HEP Goal Time Frame: 4-6 Weeks - Rehabilitation Potential Physical Therapy Diagnosis: Pt has R lateral foot pain, weakness, and limited ROM secondary to R lateral foot disfunction Rehabilitation Potential: Good - Anticipated Interventions Patient/Client Instruction: Educate patient on: Condition, Plan of Care For the Purpose of:: To improve self management Therapeutic Exercise to Include: Strength training, Endurance training, Balance training, Flexibilty training, Passive ROM, Active ROM, Dynamic Lumbar Stabilization For the Purpose of:: To decrease pain, To increase ROM, To improve muscle performance and motor function Cryotherapy (ice pack, ice massage): Yes For the Purpose of:: To decrease pain Thank you for the opportunity to evaluate your patient. For Medicare and Medicare HMO plans, please review the plan of care and approve it. It will need to be FAXED BACK to us at [phone] for Medicare purposes. For Medicare only, by signing this I certify the plan of care. Please let me know if there are questions or concerns regarding this plan of care. Physician Signature: Date:
--- NOTE | 2022-03-15 08:34 | HP.PTREVAL ---
Dr. Elena Cowan, DO, It has been my pleasure to treat KRISTEL VANEGAS over the last 5 visits for R lateral foot pain. Please see the progress note below for an update on the physical therapy plan of care! Subjective: Pt reports no overall change at this time. Pt is causing more pain in her R LE Objective/Function: R ankle DF ROM 9 degrees. R ankle pain ranges from 2-5/10. R ankle strength is 5/5 throughout. Pt continues to experience severe pain without relief Plan Plan: Hold PT at this time. Refer pt back to doctor secondary to lack of improvements Balance/Gait/Functional tests - Balance/Special Test Scores Lower Extremity Functional Score: 69 Goals Goal 1:: Decrease R lateral foot pain x 50% to aid with prolonged ambulation Goal Time Frame: 4-6 Weeks Goal Progress: Not Progressing Goal 2:: Increase R ankle strength x 1 grade to aid with stair negotiation Goal Time Frame: 4-6 Weeks Goal Progress: Goal Met Goal 3:: Increase B ankle DF ROM x 5 degrees to aid with decreasing R foot pain Goal Time Frame: 4-6 Weeks Goal 4:: I with HEP Goal Time Frame: 4-6 Weeks Goal Progress: Goal Met Anticipated Interventions Patient/Client Instruction: Educate patient on: Condition, Plan of Care For the Purpose of:: To improve self management Therapeutic Exercise to Include: Strength training, Endurance training, Balance training, Flexibilty training, Passive ROM, Active ROM, Dynamic Lumbar Stabilization For the Purpose of:: To decrease pain, To increase ROM, To improve muscle performance and motor function Cryotherapy (ice pack, ice massage): Yes For the Purpose of:: To decrease pain Please do not hesitate to contact me at [phone] by phone or if you have questions or concerns regarding this new plan of care! Sincerely, Raheem Mathew, PT, ATC
--- NOTE | 2022-08-14 09:42 | HP.PT.NRP ---
Patient Information Patient Information: KRISTEL VANEGAS was seen in my office for initial evaluation on 02/26/22. The following Plan of Care was established for this patient: POC Established Initial Frequency: 2-3x /Week Initial Duration: 4-6 Weeks Anticipated Interventions Patient/Client Instruction: Educate patient on: Condition and Plan of Care For the Purpose of:: To improve self management Therapeutic Exercise to Include: Strength training, Endurance training, Balance training, Flexibilty training, Passive ROM, Active ROM and Dynamic Lumbar Stabilization For the Purpose of:: To decrease pain, To increase ROM and To improve muscle performance and motor function Cryotherapy (ice pack, ice massage): Yes For the Purpose of:: To decrease pain Last Seen Last Seen: This patient was last seen in our office . Pertinent comments regarding their Physical therapy will appear below: Pt was treated for 5 PT visits for R foot pain through the date of 03/15/22. Pt has not returned through todays date and is discontinued at this time. At this point I will be discontinuing this patient from physical therapy. I would be happy to see this patient again in the future if found appropriate by the physician. Thank you! Raheem Mathew, PT, ATC Balance/Gait/Functional tests Balance/Special Test Scores Lower Extremity Functional Score: 69
== END 2022-03-15 19:00 | disposition home or self-care (01) ==
LOC: PT 08:00
PROVIDERS: PCP Family Medicine; Referring Provider Family Medicine; Visit Provider Family Medicine
DX: M25.571 Pain in right ankle and joints of right foot (principal)
CPT/HCPCS: 97014; 97110; 97161; 97164; G0283

== ENCOUNTER → 2022-04-11 | Outpatient (CLI) | payer BC, SELFPAY ==
--- NOTE | 2022-04-11 06:37 | MRI_ITS ---
EXAM: MR RIGHT LOWER EXTREMITY WITHOUT INTRAVENOUS CONTRAST, ANKLE CLINICAL INDICATION: PERONEAL TENDINITIS TECHNIQUE: Multiplanar and multisequence MR images of the right ankle without intravenous contrast. This report was created using [employer] report App[employer]able technology. COMPARISON: None. FINDINGS: LIGAMENTS: ANTERIOR TALOFIBULAR: Thickened anterior talofibular ligament from a previous injury. POSTERIOR TALOFIBULAR: Unremarkable. Intact. ANTERIOR TIBIOFIBULAR: Unremarkable. Intact. POSTERIOR TIBIOFIBULAR: Unremarkable. Intact. CALCANEOFIBULAR: Unremarkable. Intact. DELTOID: Unremarkable. Intact. SPRING: Unremarkable. Intact. LISFRANC: Unremarkable. Intact. TENDONS: ACHILLES: Unremarkable. Intact. FLEXOR: Minimal tenosynovial fluid about the medial flexor tendons and peroneal tendons. No tendon tearing. EXTENSOR: Unremarkable. Intact. PERONEAL: See above. TIBIALIS ANTERIOR: Unremarkable. Intact. TIBIALIS POSTERIOR: Unremarkable. Intact. MUSCLES: Unremarkable. Normal bulk and signal. FLUID: Small posterior subtalar joint effusion. SINUS TARSI: Sinus Tarsi is normal. TARSAL TUNNEL: Unremarkable. PLANTAR FASCIA: Unremarkable. Intact. CARTILAGE: Unremarkable. No osteochondral lesion. Articular cartilage intact. BONES/JOINTS: Unremarkable. Talar dome intact. No fracture or marrow edema. OTHER SOFT TISSUES: Unremarkable. MRI/Lower Ext Joint Only (Routine) IMPRESSION: 1. Marked thickening of the anterior talofibular ligament from a previous injury. 2. Very mild tenosynovitis involving the flexor tendons and peroneal tendons without definite tendon tear. Electronically Signed: Ramsey Clark MD at 22:12 EST ,
--- NOTE | 2022-04-11 06:37 | MRI_ITS ---
EXAM: MR RIGHT LOWER EXTREMITY WITHOUT INTRAVENOUS CONTRAST, FOOT CLINICAL INDICATION: PERONEAL TENDINITIS TECHNIQUE: Multiplanar and multisequence MR images of the right foot without intravenous contrast. This report was created using [employer] report [employer] technology. COMPARISON: None. FINDINGS: LIGAMENTS: MEDIAL COLLATERAL: Unremarkable. Intact. LATERAL COLLATERAL: Unremarkable. Intact. LISFRANC: Unremarkable. Intact. TENDONS: FLEXOR: Unremarkable. Intact. EXTENSOR: Unremarkable. Intact. PERONEAL: Unremarkable. Intact. TIBIALIS ANTERIOR: Unremarkable. Intact. TIBIALIS POSTERIOR: Unremarkable. Intact. MUSCLES: Unremarkable. No edema or myositis. FLUID: Unremarkable. No joint effusion. PLANTAR FASCIA: Unremarkable. Intact. BONES/JOINTS: Bone marrow edema involving the dorsal base of the third metatarsal without fracture line. This could be degenerative or due to trauma in the appropriate setting. Normal forefoot alignment. No fracture. No bone marrow edema. No joint effusion. OTHER SOFT TISSUES: Nonspecific mild subcutaneous edema overlying the lateral aspect of the head of the fifth metatarsal with no underlying bone marrow signal alterations. Visualized tendons are unremarkable. No soft tissue masses. MRI/Lower Ext/No Jt/w/o IMPRESSION: Bone marrow edema involving the dorsal base of the third metatarsal without fracture line. This could be degenerative or due to trauma in the appropriate setting. Nonspecific mild subcutaneous edema overlying the lateral aspect of the head of the fifth metatarsal with no underlying bone marrow signal alterations. No other significant internal derangement. Electronically Signed: Ramsey Clark MD at 22:20 EST ,
== END | disposition home or self-care (01) ==
PROVIDERS: PCP Family Medicine; Referring Provider Podiatrist; Visit Provider Podiatrist
DX: M76.71 Peroneal tendinitis, right leg (principal)
CPT/HCPCS: 73718; 73721

== ENCOUNTER 2022-11-12 08:00 | Outpatient (RCR) | payer BC, SELFPAY ==
--- NOTE | 2022-10-15 10:21 | HP.PTEVAL ---
Patient's Visit Information Visit Information Visit Information: KRISTEL VANEGAS is a 31 year old F referred to Physical Therapy by Dr. Elena Cowan DO with a diagnosis of Back pain. Date of Evaluation: 10/15/22 Physical Therapist: Raheem Mathew, PT, ATC Visit Plan Frequency: 2-3x /Week Duration: 4-6 Weeks Plan: L/S and T/S stabilization ex's, postural education, bike, and HEP Subjective Subjective: Pt reports she has had intermittent back pain for a couple years. Pt notes she works at [employer], and notes she experiences increased pain after work secondary to her job which requires heavy lifting at times. Pt notes she has had no recent x-rays, but notes she had x-rays taken not to long ago. Pt reports she has been diagnosed with fibromyalgia. Pt reports her L LE is nerve cold, just coming out of being numb. Pt notes she had lumbar spine surgery 10 years ago, and she has had L LE paresthesia's ever since. Pt notes intermittent sleep difficulty secondary to pain. Pt reports her pain is worst after she has been resting for a while. Pt reports she experiences relief to some extent by performing a hand off of a rail (self traction). 2/10 pain while sitting here in the clinic, 8/10 pain when her pain is at its worst. Pain LBP: Pain Intensity (Out of 10): 2 Pain Intensity Range: 8 Objective Objective: Neuro: B LE sensation is WNL to light touch with exception to L L5 dermatome is hyposensitive. B patellar reflex= 2/3 MMT: B LE's are grossly 5/5 throughout ROM: L/S ROM is WNL in all planes Repeated movements: flexion increases pain, but no LE sx's. Gait: Pt displays valgus with lunging indicating weak core strength Balance/Special Test Scores Oswestry Low Back Score: 4 Goals Goal 1:: Decrease LBP x 50% to aid with sleep Goal Time Frame: 4-6 Weeks Goal 2:: Pt will be able to perform all work requirements without any increase in LBP Goal Time Frame: 4-6 Weeks Goal 3:: Pt will verbally and physically display proper posture to aid with preventing future LBP episodes Goal Time Frame: 4-6 Weeks Goal 4:: I with HEP Goal Time Frame: 4-6 Weeks Rehabilitation Potential Physical Therapy Diagnosis: Pt has LBP and difficulty with sleep at this time secondary to L/S instability Rehabilitation Potential: Good Anticipated Interventions Patient/Client Instruction: Educate patient on: Condition and Plan of Care For the Purpose of:: To improve self management Therapeutic Exercise to Include: Strength training, Endurance training, Body mechanics, Postural training and Dynamic Lumbar Stabilization For the Purpose of:: To decrease pain and To improve muscle performance and motor function Text: Thank you for the opportunity to evaluate your patient. For Medicare and Medicare HMO plans, please review the plan of care and approve it. It will need to be FAXED BACK to us at [phone] for Medicare purposes. For Medicare only, by signing this I certify the plan of care. Please let me know if there are questions or concerns regarding this plan of care. Physician Signature: Date:
--- NOTE | 2022-11-12 08:30 | HP.PTDCSUM ---
Discharge Summary D/C summary: It has been my pleasure to treat KRISTEL VANEGAS referred by Dr. Elena Cowan DO, with the diagnosis of Back pain for a total of 9 visit(s). Discharge Date: Please see the following information for a summary of their discharge status. Subjective Subjective: Pt. feels well today. Stiffness is noted. Pain LBP: Pain Intensity (Out of 10): 0 Overall Improvement % Improvement: 98 Objective Objective/Function: Pt. reports a pain level of 0/10 with no sleep disturbance. Pt. has been I with HEP. Pt. has been able to perform all normal work requirements without an increase in LBP outside of any emergency situations. Pt verbally and physically displays proper posture which has aided with preventing LBP episodes. Goals Goal 1:: Decrease LBP x 50% to aid with sleep Goal Progress: Goal Met Goal 2:: Pt will be able to perform all work requirements without any increase in LBP Goal Progress: Goal Met Goal 3:: Pt will verbally and physically display proper posture to aid with preventing future LBP episodes Goal Progress: Goal Met Goal 4:: I with HEP Goal Progress: Goal Met Plan Plan: Discharge to home/ I gym routine D/C Information d/c sentence: If there are questions or concerns regarding this patient's physical therapy, please feel free to call me at [phone]. Thank you for the referral of this patient. Sincerely, Raheem Mathew, PT, ATC Balance/Gait/Functional tests Balance/Special Test Scores Oswestry Low Back Score: 0 Improvement % Improvement: 98
== END 2022-11-12 19:00 | disposition home or self-care (01) ==
LOC: PT 08:00
PROVIDERS: PCP Family Medicine; Referring Provider Family Medicine; Visit Provider Family Medicine
DX: R07.81 Pleurodynia (principal); M54.6 Pain in thoracic spine
CPT/HCPCS: 97110; 97140; 97161; 97164; 97530

== ENCOUNTER → 2022-12-26 | Outpatient (CLI) | payer BC, SELFPAY ==
--- NOTE | 2022-12-26 10:46 | RAD_ITS ---
STUDY: X-RAY - LUMBAR SPINE REASON FOR EXAM: Female, 32 years old. LOWER BACK AND LEFT LEG PAIN TECHNIQUE: 4 view(s) of the lumbar spine were obtained. COMPARISON: None FINDINGS: 6 lumbar type vertebral bodies. Oblique images fail to demonstrate a pars defects. Disc space narrowing and spondylosis L5 -6. Normal lumbar lordosis. There is no substantial scoliosis. There is a normal alignment of the vertebrae. Normal vertebral bodies and endplates. Normal disc space heights. The soft tissue structures are unremarkable. RAD/L/S Spine Min 4 Views IMPRESSION: Transitional vertebrae with lumbarization of S1, spondylosis and degenerative disc disease as above. Electronically Signed: Lefty Hall MD at 0:05 EST ,
== END | disposition home or self-care (01) ==
LOC: MTRAD 10:44
PROVIDERS: PCP Family Medicine; Referring Provider Family Medicine; Visit Provider Family Medicine
DX: M54.16 Radiculopathy, lumbar region (principal)
CPT/HCPCS: 72110

== ENCOUNTER → 2023-02-17 | Outpatient (CLI) | payer BC, SELFPAY ==
--- NOTE | 2023-02-17 09:30 | MRI_ITS ---
STUDY: MRI LUMBAR SPINE WITHOUT CONTRAST REASON FOR EXAM: Female, 32 years old. RADICULOPATHY TECHNIQUE: Standardized fat and water weighted pulse sequences were obtained in the sagittal and axial planes. COMPARISON: Lumbar spine radiograph images December 26, 2022 FINDINGS: T12-L1: Normal endplates. Normal disc height, hydration and morphology. Normal bilateral facet joints. Normal central canal and bilateral lateral recesses. Normal bilateral intervertebral neural foramina. Small hemangioma in the L2 vertebral body Normal lumbar lordosis. There is no substantial scoliosis. Normal conus medullaris that terminates at T12-L1 L1-2: Normal endplates. Normal disc height, hydration and morphology. Normal bilateral facet joints. Normal central canal and bilateral lateral recesses. Normal bilateral intervertebral neural foramina. L2-3: Normal endplates. Normal disc height, hydration and morphology. Normal bilateral facet joints. Normal central canal and bilateral lateral recesses. Normal bilateral intervertebral neural foramina. L3-4: Normal endplates. Normal disc height, hydration and morphology. Normal bilateral facet joints. Normal central canal and bilateral lateral recesses. Normal bilateral intervertebral neural foramina. L4-5: Degenerative endplate changes.. Narrowed disc space with disc desiccation of disc and minimal annular bulge with small left posterolateral/foraminal disc/osteophyte protrusion mildly displacing the descending left nerve root.. Mild facet arthropathy.. Normal central canal and bilateral lateral recesses. Mild right neural foraminal encroachment more severe left neural foraminal narrowing.. L5-S1: Normal endplates. Normal disc height, hydration and morphology. Normal bilateral facet joints. Normal central canal and bilateral lateral recesses. Normal bilateral intervertebral neural foramina. Normal visualized sacral ala. Normal visualized paraspinous soft tissue structures. MRI/Spine Lumbar (Routine) IMPRESSION: No evidence for acute fracture or other significant bony pathology Spinal stenosis at L4-5 with displacement of the descending left nerve root and left neural foraminal stenosis secondary to disc disease and bony hypertrophy. Findings as above Electronically Signed: Leonidas Waller MD at 16:24 EST ,
== END | disposition home or self-care (01) ==
LOC: MRI 09:04
PROVIDERS: PCP Family Medicine; Referring Provider Family Medicine; Visit Provider Family Medicine
DX: M54.16 Radiculopathy, lumbar region (principal); M54.17 Radiculopathy, lumbosacral region
CPT/HCPCS: 72148

== ENCOUNTER → 2023-04-23 | Outpatient (CLI) | payer BC, SELFPAY ==
--- OUTSIDE RECORDS SUMMARY | 2023-04-23 10:47 | XMS RPT_ITS | CCD ---
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 Name Role Phone LEONIDAS HASSAN Admitting Unavailable SONYA, LEONIDAS Attending Unavailable MALYS, ELENA A Primary Care Unavailable SONYA, LEONIDAS Admitting Unavailable SONYA, LEONIDAS Attending Unavailable MALYS, ELENA A Primary Care Unavailable Malys, Elena A Primary Care Provider Malys DO, Elena A Primary Care Provider Malys DO, Elena A Primary Care Provider Saúlys, Elena A Primary Care Provider MALYS, ELENA A Primary Care Unavailable MARCUS CARTER Referring Unavailable DUNAWAY, JOSE ROBERTO R Admitting Unavailable DUNAWAY, JOSE ROBERTO R Attending Unavailable MALYS, ELENA A Primary Care Unavailable Malys DO, Elena A Primary Care Provider [phone] Malys DO, Elena A Primary Care Provider [phone] Bernabe Deutsch MD Unavailable CHAPO ELENA A Primary Care Unavailable BERNABE DEUTSCH Attending Unavail able SAÚLYS, ELENA A Primary Care Unavailable SELIN JANG Attending Unavailable LAURABISH ., JESSICA MEDEROS Attending Unavail able CHAPO, ELENA A Primary Care Unavailable LAURABISH JR., JESSICA MEDEROS Admitting Unavail able LAURABITORRI BALL, JESSICA MEDEROS Attending Unavail able MALYS, ELENA A Primary Care Unavailable SYSTEM, PROVIDER NOT IN Attending Unavaila ble SYSTEM, PROVIDER NOT IN Referring Unavaila ble MALYS, ELENA A Primary Care Unavailable SYSTEM, PROVIDER NOT IN Attending Unavaila ble SYSTEM, PROVIDER NOT IN Referring Unavaila ble MALYS, ELENA A Primary Care Unavailable MALYS, ELENA A Primary Care Unavailable BERNABE DEUTSCH Admitting Unavail able BERNABE DEUTSCH Attending Unavail able Allergies Allergy Classification Reported Allergen(s) Allergy Type Date of Onset Reaction(s) Facility (20 sources) Penicillin; Translations: [PENICILLIN] Drug Allergy 1 Other (See Comments) [facility] Repository (19 sources) amLODIPine; Translations: [AMLODIPINE] Drug Allergy 2 Shortness Of Breath [facility] (19 sources) gabapentin; Translations: [GABAPENTIN] Drug Allergy 2 Other (See Comments) [employer] Work Phone: (1 source) Penicillins Propensity to adverse reactions to drug 2 [facility] (19 sources) risperiDONE; Translations: [RISPERIDONE] Drug Allergy 2 Shortness Of Breath [facility] [employer] Work Phone: (17 sources) DULoxetine; Translations: [DULOXETINE] Drug Allergy 2 Other (See Comments) [facility] (17 sources) FLUoxetine; Translations: [FLUOXETINE] Drug Allergy 2 Shortness Of Breath [facility] (17 sources) [place] Carbonate; Translations: [LITHIUM CARBONATE] Drug Allergy 2 Other (See Comments) [facility] (17 sources) nickel; Translations: [NICKEL] Drug Allergy 8 Hives, Rash [facility] (13 sources) Dexamethasone; Translations: [DEXAMETHASONE (PF)] Drug Allergy 3 Other (See Comments) [facility] Medications Current Medications Medication Drug Class(es) Dates Sig (Normalized) Sig (Original) acetaminophen 32 mg/ml oral solution (20 sources) Start: 04-17-2021 acetaminophen (TYLENOL) 160 MG/5ML solution 650 mg Completed/Discontinued Medications Medication Drug Class(es) Dates Sig (Normalized) Sig (Original) celecoxib 200 mg oral capsule (1 source) Nonsteroidal Anti-inflammatory Drug Start: 11-09-2019 End: 11-09-2019 celecoxib (CELEBREX) capsule 400 mg Problems Active Problems Problem Classification Problem Date Documented Date Episodic/Chronic Abdominal pain (4 sources) Pain in female pelvis; Translations: [Pelvic and perineal pain] Episodic Acute and chronic tonsillitis (18 sources) Chronic tonsillitis; Translations: [Chronic tonsillitis] Onset: 04-17-2021 Chronic Endometriosis (20 sources) Endometriosis (clinical); Translations: [Endometriosis, unspecified] Onset: 09-13-2019 11-09-2019 Chronic Esophageal disorders (20 sources) Gastro-esophageal reflux disease without esophagitis; Translations: [Gastroesophageal reflux disease without esophagitis] Onset: 05-07-2018 07-09-2021 Chronic Mood disorders (15 sources) Depressive disorder; Translations: [Depressive disorder] Onset: 05-07-2018 07-09-2021 Chronic Mood disorders (1 source) Major depressive disorder, single episode, unspecified; Translations: [DAVID DEPRESS D/O SINGLE EPIS UNS] Onset: 05-07-2018 Other aftercare (1 source) Other [facility] (current) drug therapy; Translations: [OTH SHELTER CURRENT DRUG THERAPY] Onset: 05-07-2018 Episodic Other aftercare (1 source) Surgical follow-up; Translations: [Encounter for follow-up examination after completed treatment for conditions other than malignant neoplasm] Episodic Other circulatory disease (5 sources) Elevated blood-pressure reading without diagnosis of hypertension; Translations: [Elevated blood-pressure reading, without diagnosis of hypertension] Episodic Ovarian cyst (1 source) Cyst of ovary; Translations: [Unspecified ovarian cyst, unspecified side] Episodic Residual codes; unclassified (5 sources) History of lumbar laminectomy; Translations: [Other specified postprocedural states] Episodic Spondylosis; intervertebral disc disorders; other back problems (20 sources) Other intervertebral disc displacement, lumbar region; Translations: [Spondylosis without myelopathy or radiculopathy, lumbar region] Onset: 05-07-2018 09-20-2019 Chronic Spondylosis; intervertebral disc disorders; other back problems (7 sources) Lumbar radiculopathy; Translations: [Radiculopathy, lumbar region] Onset: 04-11-2023 02-25-2023 Episodic Spondylosis; intervertebral disc disorders; other back problems (3 sources) Spinal stenosis, lumbar region with neurogenic claudication; Translations: [SPINAL STENOSIS LUMBAR REGION NC] Onset: 04-28-2018 Unclassified (2 sources) Pre-op Exam Onset: 04-09-2022 Urinary tract infections (20 sources) Chronic interstitial cystitis; Translations: [Interstitial cystitis (chronic) without hematuria] Onset: 11-09-2019 11-09-2019 Chronic Past or Other Problems Problem Classification Problem Date Documented Da te Episodic/Chronic Fluid and electrolyte disorders (15 sources) Hypokalemia; Translations: [Hypokalemia] Onset: 07-09-2021 07-09-2021 Episodic Other aftercare (2 sources) Encounter for follow-up examination after completed treatment for conditions other than malignant neoplasm; Translations: [Encounter for follow-up examination after completed treatment for conditions other than malignant neoplasm] Onset: 05-02-2022 Episodic Other connective tissue disease (15 sources) Synovial cyst of wrist; Translations: [Other bursal cyst, unspecified wrist] Onset: 07-09-2021 07-09-2021 Episodic Residual codes; unclassified (15 sources) Delirium; Translations: [Disorientation, unspecified] Onset: 07-09-2021 07-09-2021 Episodic Results Test Name Value Interpretation Reference Range Facil ity Vital Signs Date Time Vital Sign Value Performing Clinician Faci lity 05-02-2022 09:44-0400 Body height 172.7 cm Bernabe harvey MD Work Phone: [facility] 05-02-2022 09:44-0400 Body mass index (BMI) [Ratio] 26.61 kg/m2 Bernabe Deutsch MD Work Phone: [facility] 05-02-2022 09:44-0400 Body weight 79.38 kg Bernabe harvey MD Work Phone: [facility] 05-02-2022 09:44-0400 Diastolic blood pressure 92 mm[Hg] Bernabe Deutsch MD Work Phone: [facility] 05-02-2022 09:44-0400 Heart rate 120 /min Bernabe harvey MD Work Phone: [facility] 05-02-2022 09:44-0400 Systolic blood pressure 134 mm[Hg] Bernabe Deutsch MD Work Phone: [facility] 04-09-2022 10:34-0500 Body height 172.7 cm Aaliyah Perez MD Work Phone: [facility] 04-09-2022 10:34-0500 Body mass index (BMI) [Ratio] 26.83 kg/m2 Aaliyah Perez MD Work Phone: [facility] 04-09-2022 10:34-0500 Body temperature 97.9 [degF] Aaliyah Perez MD Work Phone: [facility] 04-09-2022 10:34-0500 Body weight 80.05 kg Aaliyah Perez MD Work Phone: [facility] 04-09-2022 10:34-0500 Diastolic blood pressure 90 mm[Hg] Aaliyah Perez MD Work Phone: [facility] 04-09-2022 10:34-0500 Heart rate 88 /min Aaliyah Perez MD Work Phone: [facility] 04-09-2022 10:34-0500 Respiratory rate 14 /min Aaliyah Perez MD Work Phone: [facility] 04-09-2022 10:34-0500 SaO2% (BldA) [Mass fraction] 100 % Aaliyah Perez MD Work Phone: [facility] 04-09-2022 10:34-0500 Systolic blood pressure 144 mm[Hg] Aaliyah Perez MD Work Phone: [facility] 10-08-2021 14:34-0400 Body height 172.7 cm Bernabe harvey MD Work Phone: [facility] 10-08-2021 14:34-0400 Body mass index (BMI) [Ratio] 25.85 kg/m2 Bernabe Deutsch MD Work Phone: [facility] 10-08-2021 14:34-0400 Body weight 77.11 kg Bernabe harvey MD Work Phone: [facility] 10-08-2021 14:34-0400 Diastolic blood pressure 96 mm[Hg] Bernabe Deutsch MD Work Phone: [facility] 10-08-2021 14:34-0400 Heart rate 112 /min Bernabe harvey MD Work Phone: [facility] 10-08-2021 14:34-0400 Systolic blood pressure 145 mm[Hg] Bernabe Deutsch MD Work Phone: [facility] 04-17-2021 13:00-0500 Diastolic blood pressure 78 mm[Hg] Jose Roberto Dunaway MD Work Phone: [facility] [employer] 04-17-2021 13:00-0500 Heart rate 92 /min Jose Roberto Dunaway MD Work Phone: [facility] [employer] 04-17-2021 13:00-0500 Respiratory rate 17 /min Jose Roberto Dunaway MD Work Phone: [facility] [employer] 04-17-2021 13:00-0500 SaO2% (BldA) [Mass fraction] 98 % Jose Roberto Dunaway MD Work Phone: [facility] [employer] 04-17-2021 13:00-0500 Systolic blood pressure 116 mm[Hg] Jose Roberto Dunaway MD Work Phone: [facility] [employer] 04-17-2021 10:00-0500 Body temperature 98.1 [degF] Jose Roberto Dunaway MD Work Phone: [facility] [employer] 04-16-2021 11:39-0500 Body height 172.7 cm Jose Roberto Dunaway MD Work Phone: [facility] [employer] 04-16-2021 11:39-0500 Body mass index (BMI) [Ratio] 23.57 kg/m2 Jose Roberto Dunaway MD Work Phone: [facility] [employer] 04-16-2021 11:39-0500 Body weight 70.31 kg Jose Roberto Dunaway MD Work Phone: [facility] [employer] 03-28-2021 08:30-0500 Body mass index (BMI) [Ratio] 24.02 kg/m2 Bernabe Deutsch MD Work Phone: [facility] 03-28-2021 08:30-0500 Body weight 71.67 kg Bernabe harvey MD Work Phone: [facility] 03-28-2021 08:30-0500 Diastolic blood pressure 86 mm[Hg] Bernabe Deutsch MD Work Phone: [facility] 03-28-2021 08:30-0500 Heart rate 85 /min Bernabe harvey MD Work Phone: [facility] 03-28-2021 08:30-0500 Systolic blood pressure 132 mm[Hg] Bernabe Deutsch MD Work Phone: [facility] 10-18-2020 09:49-0400 Body height 172.7 cm Alessia Crockett CNP Work Phone: [facility] 10-18-2020 09:49-0400 Body mass index (BMI) [Ratio] 24.78 kg/m2 Alessia Crockett CNP Work Phone: [facility] 10-18-2020 09:49-0400 Body temperature 98.2 [degF] Alessia Crockett CNP Work Phone: [facility] 10-18-2020 09:49-0400 Body weight 73.94 kg Alessia Crockett CNP Work Phone: [facility] 10-18-2020 09:49-0400 Diastolic blood pressure 93 mm[Hg] Alessia Crockett CNP Work Phone: [facility] 10-18-2020 09:49-0400 Heart rate 84 /min Alessia Crockett CNP Work Phone: [facility] 10-18-2020 09:49-0400 Systolic blood pressure 136 mm[Hg] Alessia Crockett CNP Work Phone: [facility] 11-09-2019 16:36-0400 Body Temperature 98.2 [degF] Shibebemini Danam [facility] 11-09-2019 16:36-0400 BP Diastolic 78 mm[Hg] Shivjaylamini Danam [facility] 11-09-2019 16:36-0400 BP Systolic 123 mm[Hg] Shibebemini Vicndsusym [facility] 11-09-2019 16:36-0400 Pulse (Heart Rate) 102 /min Shililianekamini Vicndsusym [facility] 11-09-2019 16:36-0400 Pulse Oximetry 100 % Dannyi Danam [facility] 11-09-2019 16:36-0400 Respiratory Rate 16 /min Shibebemini Yanaram [facility] 11-09-2019 06:06-0400 BMI (Body Mass Index) 23.26 kg/m2 Dannyi La Nena [facility] 11-09-2019 06:06-0400 Body weight 69.4 kg Dannyi Danam [facility] 11-09-2019 06:06-0400 Height 172.7 cm Dannyi Danam [facility] Encounters Encounter Date Encounter Type Care Provider Facility Start: 04-11-2023 Admission to [facility] Izabella George MA [facility] Neuroscience Procedures Date Procedure Procedure Detail Performing Clinician Start: 04-16-2022 H/O: hysterectomy S/P hysterectomy Bernabe harvey MD Work Phone: Start: 07-02-2021 Us transvaginal Bernabe harvey MD Work Phone: Start: 04-17-2021 COVID-19, RAPID Marcus Carter MD Work Phone: Start: 04-02-2021 Us transvaginal Bernabe harvey MD Work Phone: Start: 10-18-2020 Us transvaginal Bernabe harvey MD Work Phone: Start: 11-09-2019 Complete blood count (hemogram) panel - Blood by Automated count Bernabe Deutsch Work Phone: Start: 11-09-2019 Blood group typing Bernabe Bueno wes Work Phone: Start: 11-09-2019 Blood type and Indirect antibody screen panel - Blood Bernabe Deutsch Work Phone: Start: 11-09-2019 Choriogonadotropin ( test) [Presence] in Urine Bernabe Deutsch Work Phone: Start: 11-09-2019 Glucose [Mass/volume] in Blood Bernabe Deutsch Work Phone: Plan of Treatment Date Care Activity Detail Author Start: 07-09-2023 End: 07-09-2023 Follow-up encounter 07/09/2023 3:00 PM EDT Follow-Up [facility] Neuroscience [address] [place] [address] Marques Kwok, PLATE PREPARER [address] [place] [address] [facility] Neuro[facility] Start: 06-05-2023 End: 06-05-2023 Follow-up encounter 06/05/2023 9:15 AM EDT Follow-Up [facility] Neuroscience [address] [place] [address] Jessica Meyers Jr., DO [address] [place] [address] [facility] Neuro[facility] Start: 04-30-2023 Subsequent hospital visit by physician 04/30/2023 Hospital Encounter [facility] [address] [place] [address] Jessica Meyers Jr., DO [address] [facility] [address] [place] [address] [facility] Start: 11-29-2022 Tetanus vaccination Tetanus: Every 10yrs [facility] Start: 10-11-2022 COVID-19 Vaccine ( season) COVID-19 Vaccine ( season) [facility] Start: 10-11-2022 Influenza vaccination Sequential Influenza Vaccine (#1) [facility] Start: 08-08-2022 End: 08-08-2022 Patient encounter procedure 08/08/2022 Office Visit Gynecology Esmer Rodriguez CNP [address] [facility] [place] [address] [facility] Physician [facility] Gynecology Start: 05-02-2022 End: 05-02-2022 Patient encounter procedure 05/02/2022 Office Visit Gynecology Bernabe Deutsch MD [address] [place] [address] [facility] Physician [facility] Gynecology Start: 04-16-2022 End: 04-16-2022 Admission to same day surgery center 04/16/2022 Surgery Bernabe Deutsch MD [address] [place] [address] ROBOTIC ASSISTED LAPAROSCOPIC HYSTERECTOMY, EXCISION OF ENDOMETRIOSIS MODERATE ERAS PROTOCOL 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 2019 Unknown [id number] 1988 Unknown [id number] 1988 Unknown [id number] 1988 Unknown [id number] 1988 Unknown [id number] 1988 Unknown [id number] 1988 Unknown [id number] 1988 Unknown [id number] 1988 Unknown [id number] 1988 Unknown [id number] 1988 Unknown [id number] 1988 Unknown [id number] 1959 Self-pay [id number] Unknown [id number] Social History Date Type Detail Facility Start: 11-09-2019 End: 04-09-2022 Tobacco smoking status NHIS [facility] smoker [facility] Start: 11-09-2019 End: 04-09-2022 Tobacco use and exposure Never used [facility] Start: 11-09-2019 End: 10-28-2021 Alcohol intake Ex-drinker (finding) [facility] Start: 1990 Sex Assigned At Not on file [facility] Start: 02-25-2021 End: 05-02-2022 Exposure to SARS-CoV-2 (event) Not sure [facility] Start: 09-13-2019 End: 04-08-2023 Cigarette pack-[facility] Start: 04-09-2022 End: 04-08-2023 Alcohol intake Current drinker of alcohol (finding) [facility] Start: 04-09-2022 Alcohol Comment yearly ,holidays [facility] Start: 05-04-2022 End: 04-08-2023 Tobacco use panel [facility] Start: 09-13-2019 Gender identity Identifies as female gender (finding) [facility] Start: 09-13-2019 Sexual orientation Heterosexual (fin rey) [facility] Medical Equipment Procedure Code Equipment Code Equipment Origin al Text Equipment Identifier Dates Cath 5in Expansi on On-Q [facility] - [id number] Start: 11-09-2019 Clinical Notes 07-11-2020 to 04-08-2023 Anabell Johansen RN - 04/08/2023 9:01 AM Jessica Sanchez Jr., - 04/08/2023 8:59 AM Marce Deutsch MD - 05/02/2022 10:00 AM Rosa Perez MD - 04/09/2022 11:30 AM EST Note Date & Type Note Facility 04-08-2023 History of Presen t illness Narrative Patient here with partner for worsening left lower back, hip pain that radiates down back of leg with numbness and tingling into L large toe. Some times her gait is unsteady with the leg numbness. Denies falling. She is treating the discomfort with Meloxicam 15mg PO PRN or Aleve. She has tried PT in the past year with moderate to no relief. Denies LAVINIA She has also tried massage and Chiropractic but not in the past 6mo. MRI spine in [facility] from 02/17/23 Images from the original note were not included. Neurosurgical New Consult LIVE Visit [facility] 04/08/23 Dr. Jessica Meyers DO [facility] [address] [place] [address], [address] [place] [address] Patient: Caroline Guillen, : 1990, Physicians: Elena Cowan DO (Family); Elena Cowan DO (Referring) Dear Elena Cowan DO, Today, I had the pleasure of seeing Caroline Guillen for a new patient consult. History of Present Illness: Caroline is a 32-year-old female presenting today with chief complaint of worsening low back pain associated with lumbar radiculopathy. S/p L4-5 diskectomy in the past. Patient describes several years of back pain. Today, her main complaint is radiating pain, temperature changes, paresthesia and numbness to left hip , posterolateral aspect of left thigh into anterior aspect of her calf. Her main complaint is her left leg symptoms.She admits intermittent difficulty with prolong walking, standing, bending at waist level in particular during aggravating episodes. She does mention intermittent low back pain muscle spasms/tightness that is most pronounce when she lays in bed prolong period of times. She denies RLE symptomology. I have reviewed today's discussion of symptoms in the RN's note as documented in this encounter. Past Medical, Surgical, Social, and Family History: She has a past medical history of Anxiety, Depression, Endometriosis, GERD (gastroesophageal reflux disease), Headache, IC (interstitial cystitis), and Psychiatric disorder. She has a past surgical history that includes Laminectomy (05/05/2018); PELVISCOPY ROBOTIC (N/A, 11/09/2019); [place] tooth extraction (Bilateral, Age 23); Appendectomy (10/2019); tonsillectomy (04/17/2021); and HYSTERECTOMY TOTAL ROBOTIC (N/A, 04/16/2022). She reports that she has never smoked. She has never used smokeless tobacco. She reports current alcohol use. She reports that she does not use drugs. Her family history includes Unknown in her father and mother. Medications: She has a current medication list which includes the following prescription(s): acetaminophen, ascorbic acid (vitamin c), b complex vitamins, cholecalciferol (vitamin d3), ibuprofen, loratadine, omega 3,6,9 combination no.7, omeprazole, psyllium, trazodone, and UNABLE TO FIND. Allergies: Allergies: Amlodipine, Prozac [fluoxetine], Risperidone, Dexamethasone (pf), Cymbalta [duloxetine], Gabapentin, [place] carbonate, Penicillin, and Nickel Review of Systems: Recorded within this encounter by my office staff; reviewed. Physical and Neurological Examination: Alert, awake, oriented x3 Speech clear and fluent Recent and remote memory intact CN grossly intact Presents ambulatory, gait intact Strength: 5/5 bilaterally in HF, KE, KF, PF, DF, ankle inversion, ankle eversion Sensation: Decreased mainly in a L5 distribution, left Testing and Labs: I have reviewed the patient's neurological imaging studies to date, the pertinent studies listed below. I have independently reviewed each, as well as the radiologist interpretation thereof if available, and my interpretations are as below. These findings were reviewed and discussed with Caroline during this visit. Recent MR lumbar reviewed. She has a lumbarized sacrum, there are 6 lumbar vertebra due to this transitional anatomy this should be pointed out for numbering purposes during surgery Advanced spondylosis of the lumbar spine with severe disc height loss at L5-6 with evidence of left foraminal stenosis and postoperative changes . Lumbar xrays demonstrates significant L4-L5 (L5-6) DDD with facet arthropathy. Impression/Plan: Caroline Guillen presents with signs, symptoms, and radiographic evidence of severe degenerative disc disease with radiculopathy L5-6 on the left as documented. I have reviewed the clinical findings with her in the office today, and the radiographic correlate was demonstrated to her in the exam room as well. I discussed the natural history, as well as conservative and surgical treatment options. I utilized spinal models and diagrams to act as visual aids during counseling today. I have answered her questions today, following my consultation. I have determined that the patient has failed conservative treatment modalities, and specific surgical management options were discussed in the office today. We discussed the goals of surgical treatment. I explained the anticipated surgery, hospitalization, and expected return to activity. We discussed the pre, lizeth, and post-operative recovery course. We candidly discussed at length the potential risks which include, but are not limited to, worsening of current status, the possible need for further procedures, risk of infection, bleeding, possible lumbar nerve root injury which can lead to numbness, tingling, weakness, paralysis, quadriplegia, loss of bowel and bladder control. Additional risks include CSF leak or fistula (with need for lumbar drainage and bedrest), failure to improve in regards to preoperative symptoms, as well as all associated medical and anesthesia risks such as a deep vein thombosis, heart attack, stroke, coma, and even . After this discussion, Caroline and I agreed to proceed with redo L5-L6 discectomy with foraminotomies on the left. For case planning, in the OR I will require: Estimated case length: 1.5 hours Intraop imaging: Fluroscopy Patient positioning: Prone on orozco frame and Fidencio table Positioning accessories: None Instrumentation: None Spacers/Cages: None Fusion products: None Monitoring: None My nurse spoke with patient and her spouse regarding surgery scheduling. The [facility] surgery packet was given; my nurse reviewed pre-op usage of antimicrobial soap and nasal prep, brace and bone stimulator protocol, reviewed medication use, and the [facility] pain policy regarding post-operative care. All questions were answered and office contact information was provided. Consult pain team in the hospital As always, I greatly appreciate the opportunity to take part in Caroline Guillen's care. Please don't hesitate to call with any questions or concerns. If I or anyone else at [facility] can be of further service to you or your staff, please call on us. Cordially, Jessica Meyers DO, FACOS documented in this encounter [facility] 05-02-2022 History of Presen t illness Narrative POST-OPERATIVE VISIT Surgery: Robotic Assisted Laparoscopic Hysterectomy, Excision Of Endometriosis, Lysis Of Adhesions Surgery Date: 04/16/2022 Surgeon: Bernabe Deutsch MD HPI: Caroline Guillen is a 31 y.o. yo female now 16 days post. She presents today for her postoperative visit. She reports doing well since surgery and is well and without fevers, chills, CP, SOB, chest palpitations, severe abdominal or pelvic pain, nausea, vomiting, bladder or bowel issues. Her port site incisions have healed well. She denies heavy vaginal bleeding. She is doing well. She is off of all pain medication. ROS: Negative x 10 systems reviewed except as noted in the HPI. All past medical, surgical, social, family, allergy, and medication histories have been reviewed and updated in [facility] charting. Physical Exam: Physical Exam Constitutional: Appearance: She is well-developed. Genitourinary: Vulva and bladder normal. Genitourinary Comments: Vaginal cuff intact and healing well Cervix is absent. Uterus is absent. Pelvic exam was performed with patient in the lithotomy position. HENT: Head: Normocephalic. Cardiovascular: Rate and Rhythm: Normal rate and regular rhythm. Heart sounds: Normal heart sounds. Pulmonary: Effort: Pulmonary effort is normal. Breath sounds: Normal breath sounds. Abdominal: Palpations: Abdomen is soft. Comments: Incisions healing well Musculoskeletal: Cervical back: Normal range of motion and neck supple. Neurological: Mental Status: She is alert and oriented to person, place, and time. Skin: General: Skin is warm and dry. Psychiatric: Behavior: Behavior normal. Thought Content: Thought content normal. Judgment: Judgment normal. Vitals and nursing note reviewed. Assessment and Plan: Problem List Items Addressed This Visit Endometriosis determined by laparoscopy Pt advised on surgical findings. Discussed relevant pathology. Surgical images reviewed. Incision sites examined; dry, intact, and well approximated. Advised pt. of Scar Away and mechanical massage to reduce scar formation. Findings within normal limits. Discussed switching ibuprofen to Naprosyn or Aleve for continued pain management, reduction of chronic inflammation and help with fatigue symptoms. Explained the vaginal cuff takes about 6 weeks to recover. No intercourse for 6 weeks. Explained occasional pain likely due to her body recovering. Granulation tissue formation discussed. Counseled pt tissue damage takes about 6-8 weeks to heal. No heavy lifting for 6-8 weeks. Explained up until 8 weeks post procedure, ocassional spotting is okay. Pt should never experience full menstrual-like bleeding again. If this occurs, pt should contact the office and return for re-evaluation. Pt instructed to use lubrication with intercourse once her body has healed and she is advised to manage the process. Discussed she is healing appropriately and may gradually return to all other activities of daily living as tolerated. Copy of surgical images given to pt. Patient may return to all activities as tolerated. She knows to call the office if any new concerns arise. All questions answered to satisfaction. Interstitial cystitis Other Visit Diagnoses Postop check - Primary Return in about 3 months (around 08/02/2022) for with an JUNO. Bernabe Deutsch MD documented in this encounter [facility] 05-02-2022 Evaluation + Plan note Associated Problem(s): Endometriosis determined by laparoscopy Pt advised on surgical findings. Discussed relevant pathology. Surgical images reviewed. Incision sites examined; dry, intact, and well approximated. Advised pt. of Scar Away and mechanical massage to reduce scar formation. Findings within normal limits. Discussed switching ibuprofen to Naprosyn or Aleve for continued pain management, reduction of chronic inflammation and help with fatigue symptoms. Explained the vaginal cuff takes about 6 weeks to recover. No intercourse for 6 weeks. Explained occasional pain likely due to her body recovering. Granulation tissue formation discussed. Counseled pt tissue damage takes about 6-8 weeks to heal. No heavy lifting for 6-8 weeks. Explained up until 8 weeks post procedure, ocassional spotting is okay. Pt should never experience full menstrual-like bleeding again. If this occurs, pt should contact the office and return for re-evaluation. Pt instructed to use lubrication with intercourse once her body has healed and she is advised to manage the process. Discussed she is healing appropriately and may gradually return to all other activities of daily living as tolerated. Copy of surgical images given to pt. Patient may return to all activities as tolerated. She knows to call the office if any new concerns arise. All questions answered to satisfaction. [facility] 05-02-2022 Miscellaneous Notes Associated Problem(s): Endometriosis determined by laparoscopy Pt advised on surgical findings. Discussed relevant pathology. Surgical images reviewed. Incision sites examined; dry, intact, and well approximated. Advised pt. of Scar Away and mechanical massage to reduce scar formation. Findings within normal limits. Discussed switching ibuprofen to Naprosyn or Aleve for continued pain management, reduction of chronic inflammation and help with fatigue symptoms. Explained the vaginal cuff takes about 6 weeks to recover. No intercourse for 6 weeks. Explained occasional pain likely due to her body recovering. Granulation tissue formation discussed. Counseled pt tissue damage takes about 6-8 weeks to heal. No heavy lifting for 6-8 weeks. Explained up until 8 weeks post procedure, ocassional spotting is okay. Pt should never experience full menstrual-like bleeding again. If this occurs, pt should contact the office and return for re-evaluation. Pt instructed to use lubrication with intercourse once her body has healed and she is advised to manage the process. Discussed she is healing appropriately and may gradually return to all other activities of daily living as tolerated. Copy of surgical images given to pt. Patient may return to all activities as tolerated. She knows to call the office if any new concerns arise. All questions answered to satisfaction. documented in this encounter [facility] 04-09-2022 Note Formatting of this n ote might be different from the original. Faxed request for surgical consent. [facility] 04-09-2022 Note Formatting of this n ote might be different from the original. Faxed request for surgical consent. [facility] 04-09-2022 Miscellaneous Notes Faxed request for surgical consent. Patient Instructions for [facility]: MAIN OR Prior to surgery: Please contact your Surgeon's office for the scheduled time of your surgery. Report to the Surgery Family Waiting Area in the [place] are of [facility] 2 hours prior to your surgery. You may use the [employer] parking available at the Blue Entrance /or park in the Blue parking lot - a voucher for parking will be provided to you. One family member may accompany you back into the Pre-Op Area. If your surgeon has given you special guidelines for eating and drinking prior to surgery, follow their instructions. If not, the evening before surgery you may eat a low-fat meal up until midnight. Do not eat anything, including gum, cough drops, hard candy or mints after midnight. Clear liquids, including water, Gatorade and black coffee (no dairy or creamer products), up to two hours prior to surgery are permitted. Do not smoke, chew tobacco or drink alcohol for 24 hours before surgery. Please take any medications you have been instructed to take the morning of your surgery with small sips of water. Please be sure to wear comfortable, appropriate clothing. Please remove all jewelry and piercings, including wedding rings. RINGS WILL BE CUT OFF IF UNABLE TO REMOVE. Leave all valuable items at home. Shower using Dial soap or as advised by your Surgeon's office. Do not apply any makeup or lotions. Gel or acrylic nails must be removed from both ring fingers. Remove all nail cambodian/product for surgeries involving extremities. Please remember to bring both your insurance card and a photo ID with you on the day of surgery. After your surgery: If you are having outpatient surgery - you must have a licensed charter coach driver to take you home. The expectation is that this charter coach driver will remain at the hospital for the duration of your procedure. You are advised to have a family member with you for at least 24 hours after being under Anesthesia. documented in this encounter [facility] 04-09-2022 History and physical note Assessment and Plan 1. Preop examination Medically acceptable risk for elective major procedure pending review of the following ordered tests: 2. Endometriosis Primary management per surgical team. Patient provided instructions on preoperative management of medications including withholding Aspirin, NSAIDS, and specific Herbal Supplements. 3. Preop cardiovascular exam Patient denies any active cardiac conditions and has a revised cardiac risk index of 0. Patient denied any current cardiac symptoms and has greater than 4 METS of functional capacity and is at acceptable cardiac risk for elective surgery based on 2014 ACC/AHA guidelines. DVT prophylaxis deferred to surgical service. Recommend utilization of 2016 ACCP guidelines. Apfel score is 3. (Score/Risk of PONV = 0/10%, 1/21%, 2/39%, 3/61%, 4/79%). This score has been externally validated. 4. Elevated blood pressure reading without diagnosis of hypertension patient advised to keep an eye on her blood pressure and follow-up with her primary care physician if it continues to run high 5. Gastroesophageal reflux disease without esophagitis Well controlled with [id number] which should be dosed perioperatively on usual home schedule. 6. Interstitial cystitis 7. History of lumbar laminectomy this occurred in 2018 Chief Complaint Patient presents with Pre-operative Medical Risk Stratification History of Present Illness Caroline Guillen is a 31 y.o. 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 This patient has been diagnosed with Pre-Op Dx: Endometriosis (N80.9) and the above procedure has been recommended and scheduled for 04/16/2022. This patient is not known to have any heart problems and does not follow with a head of marketing analytics. She is never had a stroke or blood clot. She denies any breathing difficulties. She denies a diagnosis of her symptoms concerning for sleep apnea. She is not known to have liver or kidney disease and is not known to be diabetic. Her blood pressure slightly elevated today and she often has a borderline elevated reading in doctors offices. Patient advised to keep an eye on her blood pressure and follow-up with her primary care physician if it continues to run high. She does have allergies. She has GERD. She has insomnia. She has interstitial cystitis. She had a lumbar laminectomy procedure in 2019. With previous procedures she has had no complications of anesthesia or postoperative nausea or vomiting. She is able to walk a moderate distance and climb a flight of stairs without chest pain or shortness of breath. She denies use of tobacco. She rarely drinks alcohol. Please see below regarding status of active medical conditions and assessment and plan regarding details of preoperative medical risk stratification. Past Medical History: Diagnosis Date Anxiety Depression Endometriosis GERD (gastroesophageal reflux disease) Headache IC (interstitial cystitis) pain on urination at times or if waits too long to urinate Psychiatric disorder Past Medical History Pertinent Negatives: Diagnosis Date Noted Clostridium difficile infection 11/09/2019 Complication of anesthesia 11/09/2019 Diabetes mellitus, type 2 (HCC) 11/09/2019 Hard to intubate 11/09/2019 HIV disease (HCC) 11/09/2019 Infectious viral hepatitis 11/09/2019 Malignant hyperthermia due to anesthesia 11/09/2019 MRSA (methicillin resistant Staphylococcus aureus) 11/09/2019 PONV (postoperative nausea and vomiting) 11/09/2019 Sleep apnea, obstructive 11/09/2019 Past Surgical History: Procedure Laterality Date APPENDECTOMY 10/2019 LAMINECTOMY 05/05/2018 L4-L5 PELVISCOPY ROBOTIC XI N/A 11/09/2019 Procedure: ROBOTIC ASSISTED LAPAROSCOPIC EXCISION OF ENDOMETRIOSIS, BILATERAL SALPINGECTOMY, BILATERAL URETEROLYSIS, LEFT OVARIAN CYSTECTOMY, BILATERAL OVARIAN SUSPENSION, APPENDECTOMY CYSTOSCOPY WITH HYDRODISTENTION, ERAS PROTOCOL; Surgeon: Bernabe Deutsch MD; Location: [facility] Main OR; Service: OBGYN TONSILLECTOMY 04/17/2021 WISDOM TOOTH EXTRACTION Bilateral Age 23 Social History Socioeconomic History Marital status: Spouse name: Ivan Number of children: 0 Tobacco Use Smoking status: Never Smokeless tobacco: Never Vaping Use Vaping Use: Never used Substance and Sexual Activity Alcohol use: Yes Comment: yearly ,holidays Drug use: Never Sexual activity: Yes Partners: Male control/protection: Surgical Comment: S/P LS BS Family History Problem Relation Age of Onset Unknown Mother pt does not go to the doctor Unknown Father never met him Anesthesia problems Neg Hx Prior to Admission medications taking for visit date 04/09/22 Medication Sig Taking? Discontinued? acetaminophen (TYLENOL ORAL) Take 1,000 mg by mouth every 6 (six) hours as needed Reasons: pain. Yes ascorbic acid, vitamin C, (VITAMIN C) 1000 MG tablet Take 1 (one) tablet (1,000 mg total) by mouth every evening . Yes b complex vitamins tablet Take 1 (one) tablet by mouth every morning . Yes cholecalciferol, vitamin D3, 5,000 unit Tab tablet Take 1 (one) tablet (5,000 Units total) by mouth every evening . Yes loratadine (CLARITIN) 10 mg tablet Take 1 (one) tablet (10 mg total) by mouth every evening . Yes omeprazole (PRILOSEC) 40 MG capsule Take 1 (one) capsule (40 mg total) by mouth every evening . Yes traZODone (DESYREL) 50 MG tablet Take 1 (one) tablet (50 mg total) by mouth nightly . Yes UNABLE TO FIND Take 1 tablet by mouth every evening Collagen and Biotin combo. . Yes ibuprofen (ADVIL,MOTRIN) 800 MG tablet Take 1 (one) tablet (800 mg total) by mouth every 6 (six) hours as needed for pain (post-operative pian) . OMEGA 3,6,9 COMBINATION NO.7 ORAL Take 1 capsule by mouth every evening . oxyCODONE-acetaminophen (PERCOCET) 5-325 mg per tablet Take 1 (one) tablet by mouth every 6 (six) hours as needed (post-operative pain) . Bacillus coagulans/inulin (PROBIOTIC WITH PREBIOTIC ORAL) Take by mouth . Yes cyclobenzaprine (FLEXERIL) 10 MG tablet Take 1 (one) tablet (10 mg total) by mouth 3 (three) times a day as needed . Yes etonogestreL-ethinyl estradioL (NuvaRing) 0.12-0.015 mg/24 hr vaginal ring Insert vaginally and leave in place for 3 consecutive weeks, then remove for 1 week. . Yes meloxicam (MOBIC) 15 MG tablet Take 15 mg by mouth daily as needed . Yes norethindrone (MICRONOR) 0.35 mg tablet Take 1 (one) tablet (0.35 mg total) by mouth daily . Yes Allergies Allergen Reactions Amlodipine Shortness Of Breath Itching from Chest to [place] Prozac [Fluoxetine] Shortness Of Breath Panicky, Shaky, Chest Tightening Risperidone Shortness Of Breath Itching from Chest to [place] Dexamethasone (Pf) Other (See Comments) Psychosis Cymbalta [Duloxetine] Other (See Comments) Migraines, severe disorientation and dizziness Gabapentin Other (See Comments) Suicidal Thoughts [place] Carbonate Other (See Comments) Blood Sugar increase Penicillin Other (See Comments) Grandfather and mother had anaphylactic reaction so patient avoids it. Nickel Hives and Rash Review of Systems Physical Exam BP (!) 144/90 Pulse 88 Temp 97.9 F (36.6 C) (Oral) Resp 14 Ht 5' 8 Wt 80 kg (176 lb 7.7 oz) LMP 03/25/2022 SpO2 100% BMI 26.83 kg/m Constitutional: Conversant, in no acute distress Eyes: No Scleral Icterus, no ptosis. Pupils equal and round. Ears/nose/mouth/throat: Nose and ears appear normal. Oropharynx clear. Neck: Trachea midline, no goiter Respiratory: Clear to auscultation, normal respiratory effort. Cardiovascular: Regular rate and rhythm. No peripheral edema. Pulses palpable at the ankle. Gastrointestinal: Abdomen soft, nontender, no masses noted. Genitourinary: No suprapubic tenderness. Musculoskeletal: No calf tenderness with palpation, no digital cyanosis or clubbing. Skin: No rashes, Normal turgor and temperature. Neurologic: No focal deficits noted. Psychiatric: Appropriate affect, Alert and Oriented x 3. Data Preprocedure Sleep Apnea Assessment - No Risk (0/3) Sleep Apnea in the patient's Active Problem List or Medical History: no 1. History of apparent airway obstruction during sleep: (1 point for this category) Do you snore frequently, or snore loud enough to be heard through a closed door?: no Do you awaken from sleep with a choking sensation or have periods during sleep when someone has observed you pausing between breaths?: no 2. Somnolence of the patient: (1 point for this category) Do you find yourself frequently sleepy despite adequate hours of sleep the night before?: no Do you fall asleep easily while: watching TV, reading, riding in or driving a car?: no 3. Predisposing physician characteristics: (1 point for this category, 2 points if the BMI ? 40) BMI (Calculated): 26.8 Neck Circumference (inches): 14 inches [employer] Work Phone: 04-09-2022 History and physical note Assessment and Plan 1. Preop examination Medically acceptable risk for elective major procedure pending review of the following ordered tests: 2. Endometriosis Primary management per surgical team. Patient provided instructions on preoperative management of medications including withholding Aspirin, NSAIDS, and specific Herbal Supplements. 3. Preop cardiovascular exam Patient denies any active cardiac conditions and has a revised cardiac risk index of 0. Patient denied any current cardiac symptoms and has greater than 4 METS of functional capacity and is at acceptable cardiac risk for elective surgery based on 2014 ACC/AHA guidelines. DVT prophylaxis deferred to surgical service. Recommend utilization of 2016 ACCP guidelines. Apfel score is 3. (Score/Risk of PONV = 0/10%, 1/21%, 2/39%, 3/61%, 4/79%). This score has been externally validated. 4. Elevated blood pressure reading without diagnosis of hypertension patient advised to keep an eye on her blood pressure and follow-up with her primary care physician if it continues to run high 5. Gastroesophageal reflux disease without esophagitis Well controlled with [id number] which should be dosed perioperatively on usual home schedule. 6. Interstitial cystitis 7. History of lumbar laminectomy this occurred in 2019 Chief Complaint Patient presents with Pre-operative Medical Risk Stratification History of Present Illness Caroline Guillen is a 31 y.o. 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 This patient has been diagnosed with Pre-Op Dx: Endometriosis (N80.9) and the above procedure has been recommended and scheduled for 04/16/2022. This patient is not known to have any heart problems and does not follow with a head of marketing analytics. She is never had a stroke or blood clot. She denies any breathing difficulties. She denies a diagnosis of her symptoms concerning for sleep apnea. She is not known to have liver or kidney disease and is not known to be diabetic. Her blood pressure slightly elevated today and she often has a borderline elevated reading in doctors offices. Patient advised to keep an eye on her blood pressure and follow-up with her primary care physician if it continues to run high. She does have allergies. She has GERD. She has insomnia. She has interstitial cystitis. She had a lumbar laminectomy procedure in 2019. With previous procedures she has had no complications of anesthesia or postoperative nausea or vomiting. She is able to walk a moderate distance and climb a flight of stairs without chest pain or shortness of breath. She denies use of tobacco. She rarely drinks alcohol. Please see below regarding status of active medical conditions and assessment and plan regarding details of preoperative medical risk stratification. Past Medical History: Diagnosis Date Anxiety Depression Endometriosis GERD (gastroesophageal reflux disease) Headache IC (interstitial cystitis) pain on urination at times or if waits too long to urinate Psychiatric disorder Past Medical History Pertinent Negatives: Diagnosis Date Noted Clostridium difficile infection 11/09/2019 Complication of anesthesia 11/09/2019 Diabetes mellitus, type 2 (HCC) 11/09/2019 Hard to intubate 11/09/2019 HIV disease (HCC) 11/09/2019 Infectious viral hepatitis 11/09/2019 Malignant hyperthermia due to anesthesia 11/09/2019 MRSA (methicillin resistant Staphylococcus aureus) 11/09/2019 PONV (postoperative nausea and vomiting) 11/09/2019 Sleep apnea, obstructive 11/09/2019 Past Surgical History: Procedure Laterality Date APPENDECTOMY 10/2019 LAMINECTOMY 05/05/2018 L4-L5 PELVISCOPY ROBOTIC XI N/A 11/09/2019 Procedure: ROBOTIC ASSISTED LAPAROSCOPIC EXCISION OF ENDOMETRIOSIS, BILATERAL SALPINGECTOMY, BILATERAL URETEROLYSIS, LEFT OVARIAN CYSTECTOMY, BILATERAL OVARIAN SUSPENSION, APPENDECTOMY CYSTOSCOPY WITH HYDRODISTENTION, ERAS PROTOCOL; Surgeon: Bernabe Deutsch MD; Location: [facility] Main OR; Service: OBGYN TONSILLECTOMY 04/17/2021 WISDOM TOOTH EXTRACTION Bilateral Age 23 Social History Socioeconomic History Marital status: Spouse name: Ivan Number of children: 0 Tobacco Use Smoking status: Never Smokeless tobacco: Never Vaping Use Vaping Use: Never used Substance and Sexual Activity Alcohol use: Yes Comment: yearly ,holidays Drug use: Never Sexual activity: Yes Partners: Male control/protection: Surgical Comment: S/P LS BS Family History Problem Relation Age of Onset Unknown Mother pt does not go to the doctor Unknown Father never met him Anesthesia problems Neg Hx Prior to Admission medications taking for visit date 04/09/22 Medication Sig Taking? Discontinued? acetaminophen (TYLENOL ORAL) Take 1,000 mg by mouth every 6 (six) hours as needed Reasons: pain. Yes ascorbic acid, vitamin C, (VITAMIN C) 1000 MG tablet Take 1 (one) tablet (1,000 mg total) by mouth every evening . Yes b complex vitamins tablet Take 1 (one) tablet by mouth every morning . Yes cholecalciferol, vitamin D3, 5,000 unit Tab tablet Take 1 (one) tablet (5,000 Units total) by mouth every evening . Yes loratadine (CLARITIN) 10 mg tablet Take 1 (one) tablet (10 mg total) by mouth every evening . Yes omeprazole (PRILOSEC) 40 MG capsule Take 1 (one) capsule (40 mg total) by mouth every evening . Yes traZODone (DESYREL) 50 MG tablet Take 1 (one) tablet (50 mg total) by mouth nightly . Yes UNABLE TO FIND Take 1 tablet by mouth every evening Collagen and Biotin combo. . Yes ibuprofen (ADVIL,MOTRIN) 800 MG tablet Take 1 (one) tablet (800 mg total) by mouth every 6 (six) hours as needed for pain (post-operative pian) . OMEGA 3,6,9 COMBINATION NO.7 ORAL Take 1 capsule by mouth every evening . oxyCODONE-acetaminophen (PERCOCET) 5-325 mg per tablet Take 1 (one) tablet by mouth every 6 (six) hours as needed (post-operative pain) . Bacillus coagulans/inulin (PROBIOTIC WITH PREBIOTIC ORAL) Take by mouth . Yes cyclobenzaprine (FLEXERIL) 10 MG tablet Take 1 (one) tablet (10 mg total) by mouth 3 (three) times a day as needed . Yes etonogestreL-ethinyl estradioL (NuvaRing) 0.12-0.015 mg/24 hr vaginal ring Insert vaginally and leave in place for 3 consecutive weeks, then remove for 1 week. . Yes meloxicam (MOBIC) 15 MG tablet Take 15 mg by mouth daily as needed . Yes norethindrone (MICRONOR) 0.35 mg tablet Take 1 (one) tablet (0.35 mg total) by mouth daily . Yes Allergies Allergen Reactions Amlodipine Shortness Of Breath Itching from Chest to [place] Prozac [Fluoxetine] Shortness Of Breath Panicky, Shaky, Chest Tightening Risperidone Shortness Of Breath Itching from Chest to [place] Dexamethasone (Pf) Other (See Comments) Psychosis Cymbalta [Duloxetine] Other (See Comments) Migraines, severe disorientation and dizziness Gabapentin Other (See Comments) Suicidal Thoughts [place] Carbonate Other (See Comments) Blood Sugar increase Penicillin Other (See Comments) Grandfather and mother had anaphylactic reaction so patient avoids it. Nickel Hives and Rash Review of Systems Physical Exam BP (!) 144/90 Pulse 88 Temp 97.9 F (36.6 C) (Oral) Resp 14 Ht 5' 8 Wt 80 kg (176 lb 7.7 oz) LMP 03/25/2022 SpO2 100% BMI 26.83 kg/m Constitutional: Conversant, in no acute distress Eyes: No Scleral Icterus, no ptosis. Pupils equal and round. Ears/nose/mouth/throat: Nose and ears appear normal. Oropharynx clear. Neck: Trachea midline, no goiter Respiratory: Clear to auscultation, normal respiratory effort. Cardiovascular: Regular rate and rhythm. No peripheral edema. Pulses palpable at the ankle. Gastrointestinal: Abdomen soft, nontender, no masses noted. Genitourinary: No suprapubic tenderness. Musculoskeletal: No calf tenderness with palpation, no digital cyanosis or clubbing. Skin: No rashes, Normal turgor and temperature. Neurologic: No focal deficits noted. Psychiatric: Appropriate affect, Alert and Oriented x 3. Data Preprocedure Sleep Apnea Assessment - No Risk (0/3) Sleep Apnea in the patient's Active Problem List or Medical History: no 1. History of apparent airway obstruction during sleep: (1 point for this category) Do you snore frequently, or snore loud enough to be heard through a closed door?: no Do you awaken from sleep with a choking sensation or have periods during sleep when someone has observed you pausing between breaths?: no 2. Somnolence of the patient: (1 point for this category) Do you find yourself frequently sleepy despite adequate hours of sleep the night before?: no Do you fall asleep easily while: watching TV, reading, riding in or driving a car?: no 3. Predisposing physician characteristics: (1 point for this category, 2 points if the BMI ? 40) BMI (Calculated): 26.8 Neck Circumference (inches): 14 inches documented in this encounter [facility] 04-09-2022 History and physical note Assessment and Plan 1. Preop examination Medically acceptable risk for elective major procedure pending review of the following ordered tests: 2. Endometriosis Primary management per surgical team. Patient provided instructions on preoperative management of medications including withholding Aspirin, NSAIDS, and specific Herbal Supplements. 3. Preop cardiovascular exam Patient denies any active cardiac conditions and has a revised cardiac risk index of 0. Patient denied any current cardiac symptoms and has greater than 4 METS of functional capacity and is at acceptable cardiac risk for elective surgery based on 2014 ACC/AHA guidelines. DVT prophylaxis deferred to surgical service. Recommend utilization of 2016 ACCP guidelines. Apfel score is 3. (Score/Risk of PONV = 0/10%, 1/21%, 2/39%, 3/61%, 4/79%). This score has been externally validated. 4. Elevated blood pressure reading without diagnosis of hypertension patient advised to keep an eye on her blood pressure and follow-up with her primary care physician if it continues to run high 5. Gastroesophageal reflux disease without esophagitis Well controlled with PPI/[id number] which should be dosed perioperatively on usual home schedule. 6. Interstitial cystitis 7. History of lumbar laminectomy this occurred in 2019 Chief Complaint Patient presents with Pre-operative Medical Risk Stratification History of Present Illness Caroline Guillen is a 31 y.o. 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 This patient has been diagnosed with Pre-Op Dx: Endometriosis (N80.9) and the above procedure has been recommended and scheduled for 04/16/2022. This patient is not known to have any heart problems and does not follow with a head of marketing analytics. She is never had a stroke or blood clot. She denies any breathing difficulties. She denies a diagnosis of her symptoms concerning for sleep apnea. She is not known to have liver or kidney disease and is not known to be diabetic. Her blood pressure slightly elevated today and she often has a borderline elevated reading in doctors offices. Patient advised to keep an eye on her blood pressure and follow-up with her primary care physician if it continues to run high. She does have allergies. She has GERD. She has insomnia. She has interstitial cystitis. She had a lumbar laminectomy procedure in 2019. With previous procedures she has had no complications of anesthesia or postoperative nausea or vomiting. She is able to walk a moderate distance and climb a flight of stairs without chest pain or shortness of breath. She denies use of tobacco. She rarely drinks alcohol. Please see below regarding status of active medical conditions and assessment and plan regarding details of preoperative medical risk stratification. Past Medical History: Diagnosis Date Anxiety Depression Endometriosis GERD (gastroesophageal reflux disease) Headache IC (interstitial cystitis) pain on urination at times or if waits too long to urinate Psychiatric disorder Past Medical History Pertinent Negatives: Diagnosis Date Noted Clostridium difficile infection 11/09/2019 Complication of anesthesia 11/09/2019 Diabetes mellitus, type 2 (HCC) 11/09/2019 Hard to intubate 11/09/2019 HIV disease (HCC) 11/09/2019 Infectious viral hepatitis 11/09/2019 Malignant hyperthermia due to anesthesia 11/09/2019 MRSA (methicillin resistant Staphylococcus aureus) 11/09/2019 PONV (postoperative nausea and vomiting) 11/09/2019 Sleep apnea, obstructive 11/09/2019 Past Surgical History: Procedure Laterality Date APPENDECTOMY 10/2019 LAMINECTOMY 05/05/2018 L4-L5 PELVISCOPY ROBOTIC XI N/A 11/09/2019 Procedure: ROBOTIC ASSISTED LAPAROSCOPIC EXCISION OF ENDOMETRIOSIS, BILATERAL SALPINGECTOMY, BILATERAL URETEROLYSIS, LEFT OVARIAN CYSTECTOMY, BILATERAL OVARIAN SUSPENSION, APPENDECTOMY CYSTOSCOPY WITH HYDRODISTENTION, ERAS PROTOCOL; Surgeon: Bernabe Deutsch MD; Location: [facility] Main OR; Service: OBGYN TONSILLECTOMY 04/17/2021 WISDOM TOOTH EXTRACTION Bilateral Age 23 Social History Socioeconomic History Marital status: Spouse name: Ivan Number of children: 0 Tobacco Use Smoking status: Never Smokeless tobacco: Never Vaping Use Vaping Use: Never used Substance and Sexual Activity Alcohol use: Yes Comment: yearly ,holidays Drug use: Never Sexual activity: Yes Partners: Male control/protection: Surgical Comment: S/P LS BS Family History Problem Relation Age of Onset Unknown Mother pt does not go to the doctor Unknown Father never met him Anesthesia problems Neg Hx Prior to Admission medications taking for visit date 04/09/22 Medication Sig Taking? Discontinued? acetaminophen (TYLENOL ORAL) Take 1,000 mg by mouth every 6 (six) hours as needed Reasons: pain. Yes ascorbic acid, vitamin C, (VITAMIN C) 1000 MG tablet Take 1 (one) tablet (1,000 mg total) by mouth every evening . Yes b complex vitamins tablet Take 1 (one) tablet by mouth every morning . Yes cholecalciferol, vitamin D3, 5,000 unit Tab tablet Take 1 (one) tablet (5,000 Units total) by mouth every evening . Yes loratadine (CLARITIN) 10 mg tablet Take 1 (one) tablet (10 mg total) by mouth every evening . Yes omeprazole (PRILOSEC) 40 MG capsule Take 1 (one) capsule (40 mg total) by mouth every evening . Yes traZODone (DESYREL) 50 MG tablet Take 1 (one) tablet (50 mg total) by mouth nightly . Yes UNABLE TO FIND Take 1 tablet by mouth every evening Collagen and Biotin combo. . Yes ibuprofen (ADVIL,MOTRIN) 800 MG tablet Take 1 (one) tablet (800 mg total) by mouth every 6 (six) hours as needed for pain (post-operative pian) . OMEGA 3,6,9 COMBINATION NO.7 ORAL Take 1 capsule by mouth every evening . oxyCODONE-acetaminophen (PERCOCET) 5-325 mg per tablet Take 1 (one) tablet by mouth every 6 (six) hours as needed (post-operative pain) . Bacillus coagulans/inulin (PROBIOTIC WITH PREBIOTIC ORAL) Take by mouth . Yes cyclobenzaprine (FLEXERIL) 10 MG tablet Take 1 (one) tablet (10 mg total) by mouth 3 (three) times a day as needed . Yes etonogestreL-ethinyl estradioL (NuvaRing) 0.12-0.015 mg/24 hr vaginal ring Insert vaginally and leave in place for 3 consecutive weeks, then remove for 1 week. . Yes meloxicam (MOBIC) 15 MG tablet Take 15 mg by mouth daily as needed . Yes norethindrone (MICRONOR) 0.35 mg tablet Take 1 (one) tablet (0.35 mg total) by mouth daily . Yes Allergies Allergen Reactions Amlodipine Shortness Of Breath Itching from Chest to [place] Prozac [Fluoxetine] Shortness Of Breath Panicky, Shaky, Chest Tightening Risperidone Shortness Of Breath Itching from Chest to [place] Dexamethasone (Pf) Other (See Comments) Psychosis Cymbalta [Duloxetine] Other (See Comments) Migraines, severe disorientation and dizziness Gabapentin Other (See Comments) Suicidal Thoughts [place] Carbonate Other (See Comments) Blood Sugar increase Penicillin Other (See Comments) Grandfather and mother had anaphylactic reaction so patient avoids it. Nickel Hives and Rash Review of Systems Physical Exam BP (!) 144/90 Pulse 88 Temp 97.9 F (36.6 C) (Oral) Resp 14 Ht 5' 8 Wt 80 kg (176 lb 7.7 oz) LMP 03/25/2022 SpO2 100% BMI 26.83 kg/m Constitutional: Conversant, in no acute distress Eyes: No Scleral Icterus, no ptosis. Pupils equal and round. Ears/nose/mouth/throat: Nose and ears appear normal. Oropharynx clear. Neck: Trachea midline, no goiter Respiratory: Clear to auscultation, normal respiratory effort. Cardiovascular: Regular rate and rhythm. No peripheral edema. Pulses palpable at the ankle. Gastrointestinal: Abdomen soft, nontender, no masses noted. Genitourinary: No suprapubic tenderness. Musculoskeletal: No calf tenderness with palpation, no digital cyanosis or clubbing. Skin: No rashes, Normal turgor and temperature. Neurologic: No focal deficits noted. Psychiatric: Appropriate affect, Alert and Oriented x 3. Data Preprocedure Sleep Apnea Assessment - No Risk (0/3) Sleep Apnea in the patient's Active Problem List or Medical History: no 1. History of apparent airway obstruction during sleep: (1 point for this category) Do you snore frequently, or snore loud enough to be heard through a closed door?: no Do you awaken from sleep with a choking sensation or have periods during sleep when someone has observed you pausing between breaths?: no 2. Somnolence of the patient: (1 point for this category) Do you find yourself frequently sleepy despite adequate hours of sleep the night before?: no Do you fall asleep easily while: watching TV, reading, riding in or driving a car?: no 3. Predisposing physician characteristics: (1 point for this category, 2 points if the BMI ? 40) BMI (Calculated): 26.8 Neck Circumference (inches): 14 inches documented in this encounter [facility] 04-09-2022 Instructions Aaliyah Perez MD - 04/09/2022 11:24 AM EST Preoperative Medication Instructions In preparation for surgery please continue all of your current medications with the following changes: Active Home Medications Medication Sig Note Take Last Dose On Take Morning of Surgery Comment(s) acetaminophen (TYLENOL ORAL) Take 1,000 mg by mouth every 6 (six) hours as needed Reasons: pain. Please take as usual prior to your procedure ascorbic acid, vitamin C, (VITAMIN C) 1000 MG tablet Take 1 (one) tablet (1,000 mg total) by mouth every evening . 1 week prior to the procedure b complex vitamins tablet Take 1 (one) tablet by mouth every morning . 1 week prior to the procedure cholecalciferol, vitamin D3, 5,000 unit Tab tablet Take 1 (one) tablet (5,000 Units total) by mouth every evening . 1 week prior to the procedure loratadine (CLARITIN) 10 mg tablet Take 1 (one) tablet (10 mg total) by mouth every evening . Please take as usual prior to your procedure omeprazole (PRILOSEC) 40 MG capsule Take 1 (one) capsule (40 mg total) by mouth every evening . Please take as usual prior to your procedure traZODone (DESYREL) 50 MG tablet Take 1 (one) tablet (50 mg total) by mouth nightly . no UNABLE TO FIND Take 1 tablet by mouth every evening Collagen and Biotin combo. . 1 week prior to your procedure OMEGA 3,6,9 COMBINATION NO.7 ORAL Take 1 capsule by mouth every evening . 04/09/2022: Patient has been taking this medication regularly, but it is currently on hold for a planned procedure/surgery. 1 week prior to your procedure Please take your evening medications as usual on the evening prior to surgery. STOP Aspirin (and medications that contain aspirin, such as Naomi [place], Pepto-Bismol, Anacin), antiinflammatory medications such as Advil, Motrin, Ibuprofen, Naproxen, Aleve, [place], Pepto-Bismol, Anacin, Diclofenac, Voltaren, Daypro, Etodolac, Ketoprofen, Meloxicam, Piroxicam, Relafen, Nabumetone, etc. Also discontinue Vitamin C, Vitamin E, [place]-3 Fatty Acid, Fish Oil or Lovaza, as well as all herbal medications and supplements. Take last dose 1 week prior to your procedure Tylenol (acetaminophen) is acceptable, but be careful to follow the label directions. On the morning of surgery, with a small amount of water, take ONLY the medications listed above in the column Take the morning of surgery. If you are using Eye Drops or Inhalers, please bring them to the hospital. If you have sleep apnea and have a CPAP/BIPAP device, please bring it with you on the day of surgery. documented in this encounter [facility] 04-09-2022 Instructions Aaliyah Perez MD - 04/09/2022 11:24 AM EST Preoperative Medication Instructions In preparation for surgery please continue all of your current medications with the following changes: Active Home Medications Medication Sig Note Take Last Dose On Take Morning of Surgery Comment(s) acetaminophen (TYLENOL ORAL) Take 1,000 mg by mouth every 6 (six) hours as needed Reasons: pain. Please take as usual prior to your procedure ascorbic acid, vitamin C, (VITAMIN C) 1000 MG tablet Take 1 (one) tablet (1,000 mg total) by mouth every evening . 1 week prior to the procedure b complex vitamins tablet Take 1 (one) tablet by mouth every morning . 1 week prior to the procedure cholecalciferol, vitamin D3, 5,000 unit Tab tablet Take 1 (one) tablet (5,000 Units total) by mouth every evening . 1 week prior to the procedure loratadine (CLARITIN) 10 mg tablet Take 1 (one) tablet (10 mg total) by mouth every evening . Please take as usual prior to your procedure omeprazole (PRILOSEC) 40 MG capsule Take 1 (one) capsule (40 mg total) by mouth every evening . Please take as usual prior to your procedure traZODone (DESYREL) 50 MG tablet Take 1 (one) tablet (50 mg total) by mouth nightly . no UNABLE TO FIND Take 1 tablet by mouth every evening Collagen and Biotin combo. . 1 week prior to your procedure OMEGA 3,6,9 COMBINATION NO.7 ORAL Take 1 capsule by mouth every evening . 04/09/2022: Patient has been taking this medication regularly, but it is currently on hold for a planned procedure/surgery. 1 week prior to your procedure Please take your evening medications as usual on the evening prior to surgery. STOP Aspirin (and medications that contain aspirin, such as [place], Pepto-Bismol, Anacin), antiinflammatory medications such as Advil, Motrin, Ibuprofen, Naproxen, Aleve, [place], Pepto-Bismol, Anacin, Diclofenac, Voltaren, Daypro, Etodolac, Ketoprofen, Meloxicam, Piroxicam, Relafen, Nabumetone, etc. Also discontinue Vitamin C, Vitamin E, [place]-3 Fatty Acid, Fish Oil or [place], as well as all herbal medications and supplements. Take last dose 1 week prior to your procedure Tylenol (acetaminophen) is acceptable, but be careful to follow the label directions. On the morning of surgery, with a small amount of water, take ONLY the medications listed above in the column Take the morning of surgery. If you are using Eye Drops or Inhalers, please bring them to the hospital. If you have sleep apnea and have a CPAP/BIPAP device, please bring it with you on the day of surgery. documented in this encounter [facility] 04-09-2022 Note Formatting of this n ote might be different from the original. Patient Instructions for [facility]: MAIN OR Prior to surgery: Please contact your Surgeon's office for the scheduled time of your surgery. Report to the Surgery Family Waiting Area in the [place] are of [facility] 2 hours prior to your surgery. You may use the [employer] parking available at the [facility] /or park in the Blue parking lot - a voucher for parking will be provided to you. One family member may accompany you back into the Pre-Op Area. If your surgeon has given you special guidelines for eating and drinking prior to surgery, follow their instructions. If not, the evening before surgery you may eat a low-fat meal up until midnight. Do not eat anything, including gum, cough drops, hard candy or mints after midnight. Clear liquids, including water, Gatorade and black coffee (no dairy or creamer products), up to two hours prior to surgery are permitted. Do not smoke, chew tobacco or drink alcohol for 24 hours before surgery. Please take any medications you have been instructed to take the morning of your surgery with small sips of water. Please be sure to wear comfortable, appropriate clothing. Please remove all jewelry and piercings, including wedding rings. RINGS WILL BE CUT OFF IF UNABLE TO REMOVE. Leave all valuable items at home. Shower using Dial soap or as advised by your Surgeon's office. Do not apply any makeup or lotions. Gel or acrylic nails must be removed from both ring fingers. Remove all nail cambodian/product for surgeries involving extremities. Please remember to bring both your insurance card and a photo ID with you on the day of surgery. After your surgery: If you are having outpatient surgery - you must have a licensed charter coach driver to take you home. The expectation is that this charter coach driver will remain at the hospital for the duration of your procedure. You are advised to have a family member with you for at least 24 hours after being under Anesthesia. [facility] 04-09-2022 Note Formatting of this n ote might be different from the original. Patient Instructions for [facility]: MAIN OR Prior to surgery: Please contact your Surgeon's office for the scheduled time of your surgery. Report to the Surgery Family Waiting Area in the [place] are of [facility] 2 hours prior to your surgery. You may use the [employer] parking available at the [facility] /or park in the Blue parking lot - a voucher for parking will be provided to you. One family member may accompany you back into the Pre-Op Area. If your surgeon has given you special guidelines for eating and drinking prior to surgery, follow their instructions. If not, the evening before surgery you may eat a low-fat meal up until midnight. Do not eat anything, including gum, cough drops, hard candy or mints after midnight. Clear liquids, including water, Gatorade and black coffee (no dairy or creamer products), up to two hours prior to surgery are permitted. Do not smoke, chew tobacco or drink alcohol for 24 hours before surgery. Please take any medications you have been instructed to take the morning of your surgery with small sips of water. Please be sure to wear comfortable, appropriate clothing. Please remove all jewelry and piercings, including wedding rings. RINGS WILL BE CUT OFF IF UNABLE TO REMOVE. Leave all valuable items at home. Shower using Dial soap or as advised by your Surgeon's office. Do not apply any makeup or lotions. Gel or acrylic nails must be removed from both ring fingers. Remove all nail cambodian/product for surgeries involving extremities. Please remember to bring both your insurance card and a photo ID with you on the day of surgery. After your surgery: If you are having outpatient surgery - you must have a licensed charter coach driver to take you home. The expectation is that this charter coach driver will remain at the hospital for the duration of your procedure. You are advised to have a family member with you for at least 24 hours after being under Anesthesia. [facility] 04-09-2022 Note Formatting of this n ote might be different from the original. Patient Instructions for [facility]: MAIN OR Prior to surgery: Please contact your Surgeon's office for the scheduled time of your surgery. Report to the Surgery Family Waiting Area in the [facility] 2 hours prior to your surgery. You may use the [employer] parking available at the [facility] /or park in the [facility] parking lot - a voucher for parking will be provided to you. One family member may accompany you back into the Pre-Op Area. If your surgeon has given you special guidelines for eating and drinking prior to surgery, follow their instructions. If not, the evening before surgery you may eat a low-fat meal up until midnight. Do not eat anything, including gum, cough drops, hard candy or mints after midnight. Clear liquids, including water, Gatorade and black coffee (no dairy or creamer products), up to two hours prior to surgery are permitted. Do not smoke, chew tobacco or drink alcohol for 24 hours before surgery. Please take any medications you have been instructed to take the morning of your surgery with small sips of water. Please be sure to wear comfortable, appropriate clothing. Please remove all jewelry and piercings, including wedding rings. RINGS WILL BE CUT OFF IF UNABLE TO REMOVE. Leave all valuable items at home. Shower using Dial soap or as advised by your Surgeon's office. Do not apply any makeup or lotions. Gel or acrylic nails must be removed from both ring fingers. Remove all nail cambodian/product for surgeries involving extremities. Please remember to bring both your insurance card and a photo ID with you on the day of surgery. After your surgery: If you are having outpatient surgery - you must have a licensed charter coach driver to take you home. The expectation is that this charter coach driver will remain at the hospital for the duration of your procedure. You are advised to have a family member with you for at least 24 hours after being under Anesthesia. [facility] 04-09-2022 Note Formatting of this n ote might be different from the original. Patient Instructions for [facility]: MAIN OR Prior to surgery: Please contact your Surgeon's office for the scheduled time of your surgery. Report to the Surgery Family Waiting Area in the [facility] 2 hours prior to your surgery. You may use the [employer] parking available at the Blue Entrance /or park in the Blue parking lot - a voucher for parking will be provided to you. One family member may accompany you back into the Pre-Op Area. If your surgeon has given you special guidelines for eating and drinking prior to surgery, follow their instructions. If not, the evening before surgery you may eat a low-fat meal up until midnight. Do not eat anything, including gum, cough drops, hard candy or mints after midnight. Clear liquids, including water, Gatorade and black coffee (no dairy or creamer products), up to two hours prior to surgery are permitted. Do not smoke, chew tobacco or drink alcohol for 24 hours before surgery. Please take any medications you have been instructed to take the morning of your surgery with small sips of water. Please be sure to wear comfortable, appropriate clothing. Please remove all jewelry and piercings, including wedding rings. RINGS WILL BE CUT OFF IF UNABLE TO REMOVE. Leave all valuable items at home. Shower using Dial soap or as advised by your Surgeon's office. Do not apply any makeup or lotions. Gel or acrylic nails must be removed from both ring fingers. Remove all nail cambodian/product for surgeries involving extremities. Please remember to bring both your insurance card and a photo ID with you on the day of surgery. After your surgery: If you are having outpatient surgery - you must have a licensed charter coach driver to take you home. The expectation is that this charter coach driver will remain at the hospital for the duration of your procedure. You are advised to have a family member with you for at least 24 hours after being under Anesthesia. [facility] 04-09-2022 Note Formatting of this n ote might be different from the original. Patient Instructions for [facility]: MAIN OR Prior to surgery: Please contact your Surgeon's office for the scheduled time of your surgery. Report to the Surgery Family Waiting Area in the [facility] 2 hours prior to your surgery. You may use the [employer] parking available at the [facility] Entrance /or park in the Blue parking lot - a voucher for parking will be provided to you. One family member may accompany you back into the Pre-Op Area. If your surgeon has given you special guidelines for eating and drinking prior to surgery, follow their instructions. If not, the evening before surgery you may eat a low-fat meal up until midnight. Do not eat anything, including gum, cough drops, hard candy or mints after midnight. Clear liquids, including water, Gatorade and black coffee (no dairy or creamer products), up to two hours prior to surgery are permitted. Do not smoke, chew tobacco or drink alcohol for 24 hours before surgery. Please take any medications you have been instructed to take the morning of your surgery with small sips of water. Please be sure to wear comfortable, appropriate clothing. Please remove all jewelry and piercings, including wedding rings. RINGS WILL BE CUT OFF IF UNABLE TO REMOVE. Leave all valuable items at home. Shower using Dial soap or as advised by your Surgeon's office. Do not apply any makeup or lotions. Gel or acrylic nails must be removed from both ring fingers. Remove all nail cambodian/product for surgeries involving extremities. Please remember to bring both your insurance card and a photo ID with you on the day of surgery. After your surgery: If you are having outpatient surgery - you must have a licensed charter coach driver to take you home. The expectation is that this charter coach driver will remain at the hospital for the duration of your procedure. You are advised to have a family member with you for at least 24 hours after being under Anesthesia. [facility] 04-09-2022 Miscellaneous Notes Patient Instructions for [facility]: MAIN OR Prior to surgery: Please contact your Surgeon's office for the scheduled time of your surgery. Report to the Surgery Family Waiting Area in the [facility] 2 hours prior to your surgery. You may use the [employer] parking available at the [facility] Entrance /or park in the Blue parking lot - a voucher for parking will be provided to you. One family member may accompany you back into the Pre-Op Area. If your surgeon has given you special guidelines for eating and drinking prior to surgery, follow their instructions. If not, the evening before surgery you may eat a low-fat meal up until midnight. Do not eat anything, including gum, cough drops, hard candy or mints after midnight. Clear liquids, including water, Gatorade and black coffee (no dairy or creamer products), up to two hours prior to surgery are permitted. Do not smoke, chew tobacco or drink alcohol for 24 hours before surgery. Please take any medications you have been instructed to take the morning of your surgery with small sips of water. Please be sure to wear comfortable, appropriate clothing. Please remove all jewelry and piercings, including wedding rings. RINGS WILL BE CUT OFF IF UNABLE TO REMOVE. Leave all valuable items at home. Shower using Dial soap or as advised by your Surgeon's office. Do not apply any makeup or lotions. Gel or acrylic nails must be removed from both ring fingers. Remove all nail cambodian/product for surgeries involving extremities. Please remember to bring both your insurance card and a photo ID with you on the day of surgery. After your surgery: If you are having outpatient surgery - you must have a licensed charter coach driver to take you home. The expectation is that this charter coach driver will remain at the hospital for the duration of your procedure. You are advised to have a family member with you for at least 24 hours after being under Anesthesia. documented in this encounter [facility] 04-09-2022 Telephone encounter Note Patient was seen in the office today for pre-op RN only visit. Post-op prescriptions entered after visit and routed to provider to sign. Patient is aware prescriptions will be available to milk pickup driver at pharmacy prior to upcoming surgery. [facility] 04-09-2022 Miscellaneous Notes Patient was seen in the office today for pre-op RN only visit. Post-op prescriptions entered after visit and routed to provider to sign. Patient is aware prescriptions will be available to milk pickup driver at pharmacy prior to upcoming surgery. documented in this encounter [facility] 04-09-2022 History of Presen t illness Narrative [facility] [address] [facility] [id number] PRE-OPERATIVE CONSULT Pre-Operative Visit: 04/09/22 Date Of Surgery: 04/16/22 Location Of [facility]: [facility] Pre-Op Dx: Endometriosis Type Of Surgery: ROBOTIC ASSISTED LAPAROSCOPIC HYSTERECTOMY, EXCISION OF ENDOMETRIOSIS Anesthesia Risk Factors: No history of anesthetic complications. Denies sleep apnea. Denies loose teeth/dentures. Medical/Surgical Risks: Moderate complexity procedure 2-3 hours SP EOE, BS 11/09/2019, Stage 4 endo History of hypokalemia and interstitial cystitis. Reports ever since COVID she has had weird side effects to medications. Nursing Documentation: Pre and post-op instructions given to pt. Discussed the On Q pain pump and how to take care of it and remove it at home. Went over bowel prep instructions w/ pt and stressed the importance of completing the prep. Surgery handout provided to pt and advised of post-op ph# to call for problems. Pt verb an understanding of all instructions and surgery consent form reviewed. PAT today at [facility]. Last appt with Dr. Banda was 10/08/21. Pt allergic to Gabapentin, Rxs for Percocet and Ibuprofen sent to provider to sign. Selin Jang RN 04/09/22 8:46 AM documented in this encounter [facility] 10-12-2021 Telephone encounter Note Rx for Micronor added to chart and routed to Dr. Banda to sign. [facility] 10-12-2021 Miscellaneous Notes Rx for Micronor added to chart and routed to Dr. Banda to sign. Patient LVM on RN line. States that she saw Dr. Banda on Friday and Dr. Banda said she would be sending in a prescription for a low dose POP. Patient has checked with her pharmacy ([facility]) and they have not received any prescriptions. Problem List Items Addressed This Visit Endometriosis Pt advised of risks, benefits, and alternatives of a robotic-assisted total laparoscopic hysterectomy. Discussed risk of urinary tract, vascular, and bowel injury. Advised on risk of laparotomy depending on anatomy, adhesions, bleeding, and progression of the procedure. Discussed risk of infection, hemorrhage, and blood clots. Pt given the opportunity to ask questions which were answered as completely as possible. Pt counseled on emotional component involved with surgical removal of uterus. Ovarian preservation discussed. After lengthy discussion, pt would like to move forward with TIERRA STOREY LOA and will be scheduled accordingly. Reviewed risks/benefits of procedure, patient aware that etiology may not be evident on laparoscopy, all questions answered. Pt will return for preoperative visit where pocedure will be discussed in complete detail. Any necessary procedural modifications will also be updated and discussed at that time. documented in this encounter [facility] 10-10-2021 Telephone encounter Note Patient LVM on RN line. States that she saw Dr. Banda on Friday and Dr. Banda said she would be sending in a prescription for a low dose POP. Patient has checked with her pharmacy ([facility]) and they have not received any prescriptions. Problem List Items Addressed This Visit Endometriosis Pt advised of risks, benefits, and alternatives of a robotic-assisted total laparoscopic hysterectomy. Discussed risk of urinary tract, vascular, and bowel injury. Advised on risk of laparotomy depending on anatomy, adhesions, bleeding, and progression of the procedure. Discussed risk of infection, hemorrhage, and blood clots. Pt given the opportunity to ask questions which were answered as completely as possible. Pt counseled on emotional component involved with surgical removal of uterus. Ovarian preservation discussed. After lengthy discussion, pt would like to move forward with TIERRA STOREY LOA and will be scheduled accordingly. Reviewed risks/benefits of procedure, patient aware that etiology may not be evident on laparoscopy, all questions answered. Pt will return for preoperative visit where pocedure will be discussed in complete detail. Any necessary procedural modifications will also be updated and discussed at that time. [facility] 10-08-2021 History of Presen t illness Narrative [facility] [address] [facility] [id number] OFFICE VISIT Patient Name: Caroline Guillen : 1990 MR #: [id number] SUBJECTIVE: Caroline Guillen is a 30 y.o. who presents for Endometriosis and Follow-up (Pt presents today for a 3 month endometriosis follow up. Pt states she has been experiencing panic attacks since using Nuvaring; states she is still having spotting even with continuous Nuvaring, feeling fatigue and states spotting is lasting for approximately 2 weeks.) Pt presents for followup evaluation. She states continuous spotting September 13. She has also been noticing she is constantly in a daze, slightly dizzy and off balance. She is not sure if it is due to COVID or due to NuvaRing. States oddlly enough her dizzy spells occur after she drinks water. She states she is sleeping 18-20 hours a day on her days off and her depression and anxiety is through the roof. Notes she has been having to take days off work because she feels like she is going to have a panic attack. States progestin-only medication options have been suggested to better manage anxiety and depression. She does state medication has not been working well for her. She states she does not want to have any children. States if she changes her mind, she prefers to adopt. Reports she prefers to have surgical management (hysterectomy) for current symptoms. Patient's past medical, surgical, social, and family histories have been reviewed and updated in the chart. ROS: Negative x 10 systems reviewed except as noted in the HPI. OBJECTIVE: BP (!) 145/96 Pulse (!) 112 Ht 5' 8 Wt 77.1 kg (170 lb) BMI 25.85 kg/m Body mass index is 25.85 kg/m . Physical Examination: Physical Exam Constitutional: Appearance: She is well-developed. HENT: Head: Normocephalic and atraumatic. Cardiovascular: Rate and Rhythm: Normal rate. Pulmonary: Effort: Pulmonary effort is normal. Abdominal: Palpations: Abdomen is soft. Neurological: Mental Status: She is alert and oriented to person, place, and time. Skin: General: Skin is warm and dry. Psychiatric: Behavior: Behavior normal. Thought Content: Thought content normal. Judgment: Judgment normal. Vitals and nursing note reviewed. Exam conducted with a glass mold repairer present. ASSESSMENT/PLAN: Caroline Guillen 30 y.o. presents for assessment of the following issues: Problem List Items Addressed This Visit Other Endometriosis Pt advised of risks, benefits, and alternatives of a robotic-assisted total laparoscopic hysterectomy. Discussed risk of urinary tract, vascular, and bowel injury. Advised on risk of laparotomy depending on anatomy, adhesions, bleeding, and progression of the procedure. Discussed risk of infection, hemorrhage, and blood clots. Pt given the opportunity to ask questions which were answered as completely as possible. Pt counseled on emotional component involved with surgical removal of uterus. Ovarian preservation discussed. After lengthy discussion, pt would like to move forward with RATLH, Excision of Endometriosis, Lysis of Adhesions, Cystoscopy Possible Hydrodistention and will be scheduled accordingly. Reviewed risks/benefits of procedure, patient aware that etiology may not be evident on laparoscopy, all questions answered. Pt will return for preoperative visit where pocedure will be discussed in complete detail. Any necessary procedural modifications will also be updated and discussed at that time. Trial Rx written for progestin-only (Micronor) control pill. Relevant Orders Case Request Operating Room: ROBOTIC ASSISTED LAPAROSCOPIC HYSTERECTOMY, BILATERAL SALPINGECTOMY, EXCISION OF ENDOMETRIOSIS MODERATE ERAS PROTOCOL 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 PERSON Return for Pre Op Visit with the Nurse, Surgery, Post Op Visit. Carolyn Robbins MA, acted as scribe on behalf of Dr. Bernabe Deutsch and accurately documented clinical information at the direction of the physician contemporaneously, while she performed the patient's clinical service. 10/08/21 3:02 PM documented in this encounter [facility] 10-08-2021 Evaluation + Plan note Associated Problem(s): Endometriosis Pt advised of risks, benefits, and alternatives of a robotic-assisted total laparoscopic hysterectomy. Discussed risk of urinary tract, vascular, and bowel injury. Advised on risk of laparotomy depending on anatomy, adhesions, bleeding, and progression of the procedure. Discussed risk of infection, hemorrhage, and blood clots. Pt given the opportunity to ask questions which were answered as completely as possible. Pt counseled on emotional component involved with surgical removal of uterus. Ovarian preservation discussed. After lengthy discussion, pt would like to move forward with RATLH, Excision of Endometriosis, Lysis of Adhesions, Cystoscopy Possible Hydrodistention and will be scheduled accordingly. Reviewed risks/benefits of procedure, patient aware that etiology may not be evident on laparoscopy, all questions answered. Pt will return for preoperative visit where pocedure will be discussed in complete detail. Any necessary procedural modifications will also be updated and discussed at that time. Trial Rx written for progestin-only (Micronor) control pill. [facility] 10-08-2021 Miscellaneous Notes Associated Problem(s): Endometriosis Pt advised of risks, benefits, and alternatives of a robotic-assisted total laparoscopic hysterectomy. Discussed risk of urinary tract, vascular, and bowel injury. Advised on risk of laparotomy depending on anatomy, adhesions, bleeding, and progression of the procedure. Discussed risk of infection, hemorrhage, and blood clots. Pt given the opportunity to ask questions which were answered as completely as possible. Pt counseled on emotional component involved with surgical removal of uterus. Ovarian preservation discussed. After lengthy discussion, pt would like to move forward with RATLH, Excision of Endometriosis, Lysis of Adhesions, Cystoscopy Possible Hydrodistention and will be scheduled accordingly. Reviewed risks/benefits of procedure, patient aware that etiology may not be evident on laparoscopy, all questions answered. Pt will return for preoperative visit where pocedure will be discussed in complete detail. Any necessary procedural modifications will also be updated and discussed at that time. Trial Rx written for progestin-only (Micronor) control pill. documented in this encounter [facility] 07-08-2021 History of Presen t illness Narrative Ultrasound images reviewed and evaluated. Documentation within US report. Bernabe Deutsch MD 07/08/21 10:49 AM documented in this encounter [facility] 05-01-2021 Telephone encounter Note Returned call to patient with Dr. Banda's recommendations to try Orilissa. Patient states she talked to her PCP and they don't think Orilissa would be a good idea for the patient, instead think the patient would benefit from a RALTH, BSO. Informed patient it is very rare Dr. Banda would remove both ovaries on a 30 year old patient and typically prefers the patient at least try Orilissa first to see if symptoms improve. Pt states she is hypersensitive to patients and ends up with too many side effects so she is nervous to try Orilissa with her mental status and needing to get back to work. Pt states she if she decides on surgery it wouldn't be for at least a year because she needs to get back to work first. Informed pt she will need to discuss surgery with Dr. Banda. Again provided Dr. Banda's recommendations to try Orilissa instead of Nuvaring, but pt states she wants to try Nuvaring. Rx entered and routed to Dr. Banda. Pt is already scheduled for a follow up with Dr. Banda in June. [facility] 05-01-2021 Miscellaneous Notes Returned call to patient with Dr. Banda's recommendations to try Orilissa. Patient states she talked to her PCP and they don't think Orilissa would be a good idea for the patient, instead think the patient would benefit from a RALTH, BSO. Informed patient it is very rare Dr. Banda would remove both ovaries on a 30 year old patient and typically prefers the patient at least try Orilissa first to see if symptoms improve. Pt states she is hypersensitive to patients and ends up with too many side effects so she is nervous to try Orilissa with her mental status and needing to get back to work. Pt states she if she decides on surgery it wouldn't be for at least a year because she needs to get back to work first. Informed pt she will need to discuss surgery with Dr. Banda. Again provided Dr. Banda's recommendations to try Orilissa instead of Nuvaring, but pt states she wants to try Nuvaring. Rx entered and routed to Dr. Banda. Pt is already scheduled for a follow up with Dr. Banda in June. Pt called and stated that she discussed with Dr Banda about switching from Anavera to the Nuva ring and wants to know if this is a better option than Orlissa. Every since the pt has had Covid she is very sensitive to medications. documented in this encounter [facility] 04-27-2021 Telephone encounter Note Pt called and stated that she discussed with Dr Banda about switching from Anavera to the Nuva ring and wants to know if this is a better option than Orlissa. Every since the pt has had Covid she is very sensitive to medications. [facility] 04-17-2021 History of Presen t illness Narrative Discharge Criteria Outpatients must meet criteria 1 through 7. Up to restroom, void sufficient amount. Yes 1. Minimum 30 minutes after last dose of sedative medication, minimum 120 minutes after last dose of reversal agent. Yes 2. Systolic BP stable within 20 mmHg for 30 minutes & systolic BP between 90 & 180 or within 10 mmHg of baseline. Yes 3. Pulse between 60 and 100 or within 10 bpm of baseline. Yes 4. Spontaneous respiratory rate >/= 10 per minute. Yes 5. SaO2 >/= 95 or >/= baseline. Yes 6. Able to cough and swallow or return to baseline function. Yes 7. Alert and oriented or return to baseline mental status. Yes 8. Demonstrates controlled, coordinated movements, ambulates with steady gait, or return to baseline activity function. Yes 9. Minimal or no pain or nausea, or at a level tolerable and acceptable to patient. Yes 10. Takes and retains oral fluids as allowed. Yes 11. Procedural / perioperative site stable. Minimal or no bleeding. Yes 12. If GI endoscopy procedure, minimal or no abdominal distention or passing flatus. Yes 13. Written discharge instructions and emergency telephone number provided. Yes 14. Accompanied by a responsible adult. Yes Adult patient discharged from facility without responsible person meets above criteria plus the following: a) remains awake without stimulus for 30 minutes b) oriented appropriate for age c) all vital signs stable d) no significant risk of losing protective reflexes e) able to maintain pre-procedure mobility without assistance f) no nausea or dizziness g) transportation arrangements that do not require patient to operate motor Vehicle. Yes Patient assisted up to bathroom at this time and back to bed. Gait steady. Pt denies pain currently. Pt awake, no bleeding, able to eat ice chips. Pt awake, talking frequently, c/o pain 5/10 like a sore throat'. [facility] Preadmission Testing Name: Caroline Guillen : 1990 Patient (home) Procedure: Tonsillectomy Date of Procedure: 04/17/21 Surgeon: Jose Roberto Dunaway MD Ht: 5' 8 (172.7 cm) Wt: 155 lb (70.3 kg) Wt method: Allergies: Allergies Allergen Reactions Amlodipine Gabapentin Risperdal [Risperidone] There were no vitals filed for this visit. No LMP recorded. Patient has had an ablation. Do you take blood thinners? [] Yes [x] No Instructed to stop blood thinners prior to procedure? [] Yes [] No [x] N/A Do you have sleep apnea? [] Yes [x] No Do you have acid reflux ? [x] Yes [] No Do you have hiatal hernia? [] Yes [x] No Do you ever experience motion sickness? [x] Yes [] No Have you had a respiratory infection or sore throat in last 4 weeks before surgery? [] Yes [x] No Do you have poorly controlled asthma or COPD? Difficulty with intubation in past? [] Yes [x] No [] Yes [x] No Do you have a history of angina in the last month or symptomatic arrhythmia? [] Yes [x] No Do you have significant central nervous system disease? [] Yes [x] No Have you had an EKG, labs, or chest xray in last 12 months? If yes provide copies to anesthesia [x] Yes [] No [x] Lab [] EKG [] CXR Have you had a stress test? [] Yes [x] No When/where: Was it normal? [] Yes [] No Do you or your family have a history of Malignant Hyperthermia? [] Yes [x] No Do you smoke? [] Yes [x] No Please refrain from smoking on the day of surgery. Patient instructed on: [x] NPO Status [x] Meds to Take [x] Ride Home [x]No Jewelry/Contact Lenses/Nail Maldivian [] Prep/Lax/Clear Liquids [] Chlorhexidene DOS Patient Needs [x] HCG [] Blood Sugar [] PT/INR [] T&S COVID Vaccinated? [] Yes [x] No Patient instructed on the pre-operative, intra-operative, and post-operative process? Yes Medication instructions reviewed with patient? Yes documented in this encounter [facility] Phone: 04-07-2021 History of Presen t illness Narrative Ultrasound images reviewed and evaluated. Documentation within US report. Bernabe Deutsch MD 04/07/21 10:46 PM documented in this encounter [facility] 03-28-2021 History of Presen t illness Narrative [facility] [address] [id number] OFFICE VISIT Patient Name: Caroline Guillen : 1990 MR #: [id number] SUBJECTIVE: Caroline Guillen is a 30 y.o. who presents for Endometriosis and Follow-up (Pt presents for follow up of her endometriosis. Pt is concerned about possible left pelvic mass, lower abdominal cramping and lower back pain.) Pt presents for followup evaluation. She states she is having pain with prolonged sitting, complaining of left lower abdominal discomfort. States pain feels like a snake moving around in her insides. 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 States she has recently been extremely sensitive to medications. She notes she has been in extreme pain since Annovera ring was removed. She has discomfort with laying down, cannot wear pants, anytime she leans forward or sitting properly, feels like she is getting smashed. She notes tramadol improves her pain. States current symptoms are affecting her overall quality of life. Pt states she does not want to have children and prefers adoption option. Patient's past medical, surgical, social, and family histories have been reviewed and updated in the chart. ROS: Negative x 10 systems reviewed except as noted in the HPI. OBJECTIVE: BP 132/86 (BP Location: Left arm, Patient Position: Sitting, BP Cuff Size: Adult) Pulse 85 Wt 71.7 kg (158 lb) BMI 24.02 kg/m Body mass index is 24.02 kg/m . Physical Examination: Physical Exam Constitutional: Appearance: Normal appearance. She is well-developed. HENT: Head: Normocephalic and atraumatic. Cardiovascular: Rate and Rhythm: Normal rate. Pulmonary: Effort: Pulmonary effort is normal. Abdominal: Palpations: Abdomen is soft. Musculoskeletal: Cervical back: Normal range of motion. Neurological: Mental Status: She is alert and oriented to person, place, and time. Skin: General: Skin is warm and dry. Psychiatric: Mood and Affect: Mood and affect normal. Behavior: Behavior normal. Thought Content: Thought content normal. Judgment: Judgment normal. Vitals and nursing note reviewed. Exam conducted with a glass mold repairer present. ASSESSMENT/PLAN: Caroline Guillen 30 y.o. presents for assessment of the following issues: Problem List Items Addressed This Visit Other Endometriosis Pelvic exam performed. Pt counseled symptoms may be related to scar tissue formation. Benefits of pelvic floor therapy discussed. Ambulatory referral given and Pt advised to trial pelvic floor therapy sessions for further management of symptoms. Fascial release discussed. NuvaRing options discussed. Pt states she did well with the NuvaRing. Discussed switching back to NuvaRing from Annovera Ring. Chronic pain management discussed. Recommended seeking therapy to discuss coping mechanisms for her chronic pain issues. Discussed the need for counseling to deal with chronic pain as well as any depression and anxiety. Orlissa samples given today. Relevant Medications elagolix (Orilissa) 150 mg Tab Return in about 3 months (around 06/25/2021) for Follow up. Carolyn Robbins MA, acted as scribe on behalf of Dr. Bernabe Deutsch and accurately documented clinical information at the direction of the physician contemporaneously, while she performed the patient's clinical service. 03/28/21 8:47 AM documented in this encounter [facility] 03-28-2021 Evaluation + Plan note Associated Problem(s): Endometriosis Pelvic exam performed. Pt counseled symptoms may be related to scar tissue formation. Benefits of pelvic floor therapy discussed. Ambulatory referral given and Pt advised to trial pelvic floor therapy sessions for further management of symptoms. Fascial release discussed. NuvaRing options discussed. Pt states she did well with the NuvaRing. Discussed switching back to NuvaRing from Annovera Ring. Chronic pain management discussed. Recommended seeking therapy to discuss coping mechanisms for her chronic pain issues. Discussed the need for counseling to deal with chronic pain as well as any depression and anxiety. Orlissa samples given today. [facility] 03-28-2021 Miscellaneous Notes Associated Problem(s): Endometriosis Pelvic exam performed. Pt counseled symptoms may be related to scar tissue formation. Benefits of pelvic floor therapy discussed. Ambulatory referral given and Pt advised to trial pelvic floor therapy sessions for further management of symptoms. Fascial release discussed. NuvaRing options discussed. Pt states she did well with the NuvaRing. Discussed switching back to NuvaRing from Annovera Ring. Chronic pain management discussed. Recommended seeking therapy to discuss coping mechanisms for her chronic pain issues. Discussed the need for counseling to deal with chronic pain as well as any depression and anxiety. Orlissa samples given today. documented in this encounter [facility] 02-21-2021 Note HNO ID: [id number] Author: RT Sylvester(R) Service: Radiology Author Type: Technologist Type: Progress Notes Filed: 02/21/2021 2:18 PM Note Text: Radiology Service Progress Note PATIENT NAME: Caroline Guillen DATE OF SERVICE: February 21, 2021 TIME: 2:02 PM PATIENT IDENTITY VERIFICATION COMPLETED USING TWO (2) IDENTIFIERS: Name and Date of confirmed by patient verbally. FALL SCREENING: Has the patient had 2 falls in the last year or 1 fall with injury or currently using an Ambulatory Assistive Device (Walker, Cane, Wheelchair, Crutches, etc.)? No PATIENT GENDER DATA: Female. status: : No status: NO. PATIENT RELEVANT IMPLANT DATA REVIEWED: Yes RADIOLOGY DEPARTMENT: General X-ray: Exam(s) Completed: Upper Extremity X-Ray(s): Hand, right PERIPHERAL IV DATA: Not applicable SIGNED BY: RT Sylvester(R) February 21, 2021 2:02 PM [facility] 02-21-2021 Note HNO ID: [id number] Author: Leonidas Chatterjee APRN.PLATE PREPARER Service: ? Author Type: Nurse Practitioner Type: Progress Notes Filed: 02/21/2021 2:35 PM Note Text: Subjective HPI Nontoxic-appearing female presents urgent care chief complaint right hand pain. Duration of symptoms 2 to 3 days. Associated symptoms right hand pain. Patient states she was washing a wandy jar when she had her hand inside the jar she felt a pop of her 2nd digit over the MCP joint. Presents today to ensure she did not break or dislocate this joint. Patient denies any pain at rest states that she does have mild pain if you push over the area. Did take meloxicam this did not help. Denies any numbness no tingling. No decrease sensation. Denies history of hand fractures or surgeries. Denies chance of . Past medical history prescription medication use allergies reviewed. .Patient presents with: Hand Injury: Right hand x 2-3 days History reviewed. No pertinent past medical history. History reviewed. No pertinent surgical history. ALLERGIES Patient has no allergy information on record. MEDICATIONS No prescriptions on file. History reviewed. No pertinent family history. Social History Tobacco Use - Smoking status: Never Smoker - Smokeless tobacco: Never Used Substance Use Topics - Alcohol use: Not on file - Drug use: Not on file BP 144/90 Pulse 115 Temp 37.3 ?C (99.1 ?F) Resp 16 Wt 71 kg (156 lb 9.6 oz) LMP 02/21/2021 (Exact Date) SpO2 98% Hr 91 Review of Systems Constitutional: Negative for chills, fever and malaise/fatigue. HENT: Negative for congestion, ear discharge, ear pain, sinus pain and sore throat. Eyes: Negative for blurred vision, pain, discharge and redness. Respiratory: Negative for cough, hemoptysis, sputum production, shortness of breath, wheezing and stridor. Cardiovascular: Negative for chest pain. Gastrointestinal: Negative for abdominal pain, diarrhea, nausea and vomiting. Musculoskeletal: Positive for joint pain. Negative for myalgias. Skin: Negative for itching and rash. Neurological: Negative for dizziness and headaches. Objective Physical Exam Constitutional: General: She is not in acute distress. Appearance: She is not diaphoretic. HENT: Head: Normocephalic. Mouth/Throat: Mouth: Mucous membranes are moist. Pharynx: Oropharynx is clear. No oropharyngeal exudate or posterior oropharyngeal erythema. Eyes: Conjunctiva/sclera: Conjunctivae normal. Pupils: Pupils are equal, round, and reactive to light. Cardiovascular: Rate and Rhythm: Normal rate and regular rhythm. Heart sounds: Normal heart sounds. Pulmonary: Effort: Pulmonary effort is normal. No tachypnea, accessory muscle usage or respiratory distress. Breath sounds: Normal breath sounds. No stridor. Abdominal: Palpations: Abdomen is soft. Tenderness: There is no abdominal tenderness. Musculoskeletal: Hands: Cervical back: Normal range of motion and neck supple. No rigidity or tenderness. Comments: Pain over MCP joint 2nd digit. Neurovascular intact. No pain with palpation. No erythema no edema. No breaks in skin. Lymphadenopathy: Cervical: No cervical adenopathy. Skin: General: Skin is warm and dry. Neurological: Mental Status: She is alert and oriented to person, place, and time. ASSESSMENT/PLAN: 1. Pain of right hand - ICD9: 729.5, ICD10: M79.641 - XR HAND GENERAL 3V PA/LAT/OBL RIGHT IMPRESSION IMPRESSION: No acute radiographic abnormalities seen in the right hand. No abnormalities noted on x-ray. We will treat conservatively at this time. Does have a follow-up appointment made for Friday with PCP. Will keep appointment. Red flags for prompt reevaluation discussed. Patient was educated on supportive therapies. Patient was instructed to immediately proceed to emergency room for any new, worsening, or symptoms lasting longer than anticipated. The patient's clinical presentation is otherwise unremarkable at this time. Based on exam and clinical finding, the patient is stable for discharge. Plan of care was discussed with patient. Patient verbalizes understanding and agrees to plan of care. This note was generated using Basic[employer] software. It may contain errors in wording, punctuation, or spelling. Leonidas Chatterjee APRN.[facility] 10-23-2020 History of Presen t illness Narrative Ultrasound images reviewed and evaluated. Documentation within US report. Bernabe Deutsch MD 10/23/20 1:52 AM documented in this encounter [facility] 07-11-2020 History of Presen t illness Narrative Subjective Patient ID: Caroline Guillen is a 29 y.o. female. Pelvic Pain The patient's primary symptoms include pelvic pain. The patient's pertinent negatives include no vaginal discharge. Pertinent negatives include no abdominal pain, constipation, diarrhea, dysuria, flank pain, frequency, headaches, hematuria, nausea, rash, urgency or vomiting. LMP 10/11/2020 ( 5days of cramping, needed more medication. Using Aleve, Pamprin or Tylenol) 09/10/2020 (Mild cramping) Review of Systems Constitutional: Negative for activity change, appetite change, fatigue and unexpected weight change. Respiratory: Negative for chest tightness and shortness of breath. Cardiovascular: Negative for chest pain, palpitations and leg swelling. Gastrointestinal: Negative for abdominal distention, abdominal pain, constipation, diarrhea, nausea and vomiting. Endocrine: Negative for cold intolerance and heat intolerance. Genitourinary: Positive for menstrual problem and pelvic pain. Negative for decreased urine volume, difficulty urinating, dyspareunia, dysuria, enuresis, flank pain, frequency, genital sores, hematuria, urgency, vaginal bleeding, vaginal discharge and vaginal pain. Skin: Negative for color change and rash. Neurological: Negative for facial asymmetry, speech difficulty and headaches. Hematological: Negative for adenopathy. Does not bruise/bleed easily. Psychiatric/Behavioral: Negative for agitation, behavioral problems, confusion, decreased concentration, self-injury, sleep disturbance and suicidal ideas. The patient is not nervous/anxious. Objective Physical Exam Vitals and nursing note reviewed. Constitutional: Appearance: She is well-developed. Pulmonary: Effort: Pulmonary effort is normal. No respiratory distress. Abdominal: Hernia: There is no hernia in the left inguinal area or right inguinal area. Genitourinary: General: Normal vulva. Exam position: Lithotomy position. Pubic Area: No rash. Labia: Right: No tenderness. Left: No tenderness. Vagina: Normal. Cervix: Normal. Uterus: Normal. Not tender. Adnexa: Right: Tenderness present. Fullness: possible 3-4 cm cyst. Left: No tenderness or fullness. Musculoskeletal: General: Normal range of motion. Lymphadenopathy: Lower Body: No right inguinal adenopathy. No left inguinal adenopathy. Skin: General: Skin is warm and dry. Neurological: Mental Status: She is alert and oriented to person, place, and time. Psychiatric: Behavior: Behavior normal. Assessment/Plan: Caroline Guillen presents for annual exam. Medical, surgical and family histories reviewed and updated as needed. States her PAP is current at her home EMBLEM [employer] T[employer]ER. Contraception options reviewed and patient elects tubal ligation. Used Nuvaring in the past to manage pelvic pain. States it started affecting her mood and she stopped it more than one year ago, Her current pain started on month ago with mild cramping during menses. This current menses the pain was severe and difficult to manage with Aleve and Tylenol. Caroline feels she would like to try going on control to manage cycles and decrease ovulatory function. She liked the Nuvaring but it caused mood swings and was cost prohibitive. Reviewed option of Annovera based on her insurance for coverage. Will check US today for the acute right side pelvic pain. Follow up in one year and PRN. Alessia Crockett CNP 10/18/20 documented in this encounter [facility] Endometriosis- Primary Endometriosis, site unspecified Pelvic pain in female Unspecified symptom associated with female genital organs [facility] Diagnosis Endometriosis Endometriosis, site unspecified [facility] Diagnosis Pelvic pain in female- Primary Unspecified symptom associated with female genital organs [facility] Diagnosis Chronic tonsillitis documented in this encounter [facility] Phone: evaluation note* Diagnosis Pelvic pain in female- Primary Unspecified symptom associated with female genital organs Cyst of ovary, unspecified laterality [facility]* Diagnosis Endometriosis Endometriosis, site unspecified [facility]* Diagnosis Endometriosis- Primary Endometriosis, site unspecified Preop examination- Primary Unspecified pre-operative examination Endometriosis Endometriosis, site unspecified Preop cardiovascular exam Pre-operative cardiovascular examination Elevated blood pressure reading without diagnosis of hypertension Gastroesophageal reflux disease without esophagitis Esophageal reflux Interstitial cystitis Chronic interstitial cystitis History of lumbar laminectomy Endometriosis Endometriosis, site unspecified [facility] Diagnosis Endometriosis- Primary Endometriosis, site unspecified Pelvic pain in female- Primary Unspecified symptom associated with female genital organs Endometriosis Endometriosis, site unspecified [facility]* Diagnosis Endometriosis- Primary Endometriosis, site unspecified Preop examination- Primary Unspecified pre-operative examination Endometriosis Endometriosis, site unspecified Preop cardiovascular exam Pre-operative cardiovascular examination Elevated blood pressure reading without diagnosis of hypertension Gastroesophageal reflux disease without esophagitis Esophageal reflux Interstitial cystitis Chronic interstitial cystitis History of lumbar laminectomy Endometriosis Endometriosis, site unspecified [facility]* Diagnosis Postop check- Primary Follow-up examination, following unspecified surgery Endometriosis determined by laparoscopy Interstitial cystitis Chronic interstitial cystitis [facility]* Diagnosis Lumbar radiculopathy- Primary Thoracic or lumbosacral neuritis or radiculitis, unspecified Herniated lumbar intervertebral disc Displacement of lumbar intervertebral disc without myelopathy [facility]* Diagnosis Degenerative disc disease, lumbar- Primary [facility] Diagnosis Degeneration of lumbar or lumbosacral intervertebral disc- Primary [facility]* Diagnosis Lumbar radiculopathy- Primary Thoracic or lumbosacral neuritis or radiculitis, unspecified documented in this encounter [facility] note* Diagnosis Lumbar radiculopathy- Primary Thoracic or lumbosacral neuritis or radiculitis, unspecified documented in this encounter [facility] Discharge instructions* Instructions* Jose Roberto Dunaway MD - 04/17/2021 TONSILLECTOMY Tonsils are mounds of tissue related to lymph nodes that are found at the sides of the back of the throat. They are a small part of the many lymph nodes that make up our immune system. Removing them has not been shown to affect immune function. They are present in everyone at and may become quite large, especially in childhood, but will often shrink in size as a person grows older. At times, the tonsils may harbor infectious bacteria or viruses causing pain and discomfort, or become so large that they block breathing or eating. Rarely the tonsils may harbor growths, tumors, or other lesions. REASONS FOR SURGERY- How is the decision made? Removal of the tonsils is a decision to be made between the surgeon and the patient or family. Generally, removal is recommended when one or more of the following symptoms or findings are noted: Frequent sore throats occurring 3 or more times a year, especially with lost work or school attendance Strep throat infection documented by culture more than 3 times a year, or a positive culture after antibiotic therapy and resolution of symptoms is noted Breathing problems with snoring, pauses in breathing, poor sleep or restlessness, excessive daytimetiredness, attention difficulties, bed-wetting, or poor school performance are noted Tonsil enlargement causes difficulty with eating or appetite, gagging, or similar problems The tonsils are of unequal size, have an ulcer or other concerning appearance Other problems as discussed with your doctor SURGICAL TREATMENT- What are the Risks, Alternatives, Potential Complications, and Benefits? Risks- The greatest risk from tonsillectomy is from bleeding at the surgical site. The estimated frequency of bleeding from tonsillectomy is around 3% (three patients out of one hundred.) This may occur at any time after the surgery, but the risk is generally greatest immediately after surgery, andagain about 7-10 days later when healing allows the scab to fall off. There is also a small risk ofcomplications from anesthesia. Alternatives- Most surgery on the tonsils is elective, which means that you may choose to have no treatment or to treat the problem with medication or by other means. Sometimes a decision to not havetreatment can have serious consequences that you should discuss with your doctor. Complications- The most severe complication is bleeding that could result in the need for a blood transfusion or . This is extremely rare. There is also a small risk of scarring, injury to the teeth, throat, tongue, other structures of the mouth, throat, and neck, changes in voice quality, or re-growth of the tonsil tissue requiring repeated surgery. Notify your doctor immediately if any bleeding from the nose or mouth is noted after surgery. Benefits- Most tonsil surgery is without complications. Success in relieving most conditions is excellent. RECOVERY- What should I expect? Recovery generally lasts 1-2 weeks, often less in children, and sometimes longer in adults. Most people can go home the same day of surgery after observation for a short period of time. For children less than 3 years of age, those with other medical problems, or that live more than one hour away, an overnight hospital stay may be required. Once you have gone home, common events in the recovery period and expectations of what is normal are listed below. Call your doctor if you have any questionsor concerns that are not answered here. Pain- Pain is an expected part of recovery after surgery. Pain may be noted in the throat, back of the neck, or in the ears (which can be quite severe), jaw, or mouth. This is treated with oral pain medication: TYLENOL? ELIXIR 500 MG every 4 hours by mouth as needed for pain, AND IBUPROFEN ELIXIR 400 MG every 6 hours by mouth as needed for pain. It is important to take the medication at regular intervals, including waking up at night to take it. This will help avoid waking in pain which can make taking more medicine difficult. Take only the medication prescribed by your doctor. It is common for pain to worsen three to four days after surgery. This is a result of the steroid medication that was given in surgery wearing off. Pain should imp rove in the next few days. If it does not, or is not relieved by the pain medication taken as prescribed, call your doctor. Bad breath- This is very common and sometimes bothersome. This is normal and occurs from the bacteria that grow on the scab in the throat which appears as a white patch where the tonsils once were. Eating and drinking will wash this away and improve this complaint. Nausea and vomiting- These are usually due to the effects of anesthesia and should subside in the first day or two. If they continue, are related to taking the pain medication, or contain blood, notify your doctor. Fever- A low grade temperature of less than 102 F for a few days after surgery is normal. Notify your doctor for fever above this, or one that persists for greater than 3 days. Eating and drinking- Many people are reluctant to eat and drink due to pain after surgery. It is important that drinking is encouraged to avoid dehydration. Ice chips, popsicles, Jell-O, as well as juices (avoid citrus) and water are generally well tolerated. Signs of dehydration include loose skin, sunken eyes or absence of tears, dark yellow or orange urine, or the failure to urinate at least twice a day. Call your doctor if unable to take liquids or signs of dehydration are noted. Activity- It is recommended that heavy lifting, exertion, and other strenuous activity be avoided for one to two weeks after surgery. Children should stay home from school for the first week. They may return the second week, but should refrain from participating in recess or gym. Do not drive or operate machinery while on pain medication. MEDICATIONS- Ask your doctor about resuming your home medications. Do not take herbal medications without asking your doctor as these often have blood thinning properties which can increase the risk of bleeding. CONTINUING CARE- What additional care do I need? Your doctor will see you for follow-up evaluation in approximately two weeks after surgery unless another time has been arranged. Call the office if an appointment has not been previously scheduled. At this time, most healing is complete, pain has resolved, and a regular diet is well tolerated. NOTICE: THIS DOCUMENT IS INTENDED SOLELY FOR PATIENT EDUCATIONAL PURPOSES AND IS PROVIDED A COURTESY TO PATIENTS OF DR. JOSE ROBERTO DUNAWAY MD AND PHONG MARTE PA-C. IT IS NOT INTENDED A SUBSTITUTE FOR PROFESSIONAL MEDICAL CARE OR ADVICE. THE PATIENT SHOULD SEEK ADVICE FROM THE PHYSICIAN IF THERE ARE ANY QUESTIONS ABOUT THE CONTENTS OR DIRECTIONS PROVIDED IN THIS DOCUMENT. documented in this encounterLaunchGram Phone: reason for visit Narrative* Auth/Cert Specialty Diagnoses / Procedures Referred By Katlyn espinoza Referred To Contact Diagnoses Chronic tonsillitis Dysphagia, unspecified chronic tonsilitis, dysphagia Procedures WA REMOVAL OF TONSILS,12+ Y/O TONSILLECTOMY Jose Roberto Dunaway MD [address] [place] [address] [address] [place] [address] Referral ID Status Reason Start Date Expiration Date Visits Re quested Visits Authorized [id number] 1 1 [employer] Phone: Summary Purpose Family History No Family History Records FoundNo Family History Records FoundNo Family History Records FoundNo Family History Records FoundNo Family History Records FoundNo Family History Records Found Advance Directives No Advanced Directives Records FoundDocuments on File Type Date Recorded 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 Advance Directives and Livin g Will 11/09/2019 5:06 AM Latest Code Status on File Code Status Date Activated Date Inactivated Comments Full Code 11/09/2019 5:41 AM 11/09/2019 12:57 PM Documents on File Type Date Recorded 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 Advance Directives and Livin g Will 11/09/2019 5:06 AM Latest Code Status on File Code Status Date Activated Date Inactivated Comments Full Code 11/09/2019 5:41 AM 11/09/2019 12:57 PM Latest Code Status on File Code Status Date Activated Date Inactivated Comments Full Code 04/17/2021 9:27 AM Latest Code Status on File Code Status Date Activated Date Inactivated Comments Full Code 04/17/2021 9:27 AM 04/17/2021 3:38 PM Latest Code Status on File Date Activated Date Inactivated Comments 11/09/2019 5:41 AM 11/09/2019 12:57 PM Latest Code Status on File Code Status Date Activated Date Inactivated Comments Full Code 11/09/2019 5:41 AM 11/09/2019 12:57 PM Latest Code Status on File Code Status Date Activated Date Inactivated Comments Full Code 04/16/2022 2:28 PM 04/16/2022 10:38 PM Code Status History Code Status Date Activated Date Inactivated Comments Full Code 04/16/2022 9:42 AM 04/16/2022 2:28 PM Full Code 11/09/2019 5:41 AM 11/09/2019 12:57 PM Latest Code Status on File Code Status Date Activated Date Inactivated Comments Full Code 04/16/2022 2:28 PM 04/16/2022 10:38 PM Code Status History Code Status Date Activated Date Inactivated Comments Full Code 04/16/2022 9:42 AM 04/16/2022 2:28 PM Full Code 11/09/2019 5:41 AM 11/09/2019 12:57 PM History of Present Illness * Vandana Salazar RN - 11/09/2019 5:19 PM EDT AVS reviewed with patient and given to her. All questions answered by this RN. IV removed with catheter tip intact. Vandana Salazar * Any Rabago DO - 11/09/2019 4:18 PM EDT GYNECOLOGY BRIEF POST-OP NOTE Patient Name: Caroline Guillen MR #: [id number] ASSESSMENT AND PLAN: Endometriosis Assessment & Plan Caroline Guillen is a 29 y.o. female with a history of endometriosis, herniated disc, anxiety, migraines, who is POD#0 from RA EOE, BS, ureterolysis, L cystectomy, ovarian suspension, appendectomy, cystoscopy w hydrodistention. - HD stable; EBL 30cc - Pain: controlled with PO meds - MIVF/PO fluids: tolerating PO intake - GI: Tolerating solids - : Voiding spontaneously - ID: no antibiotics indicated - Resp: Incentive spirometry use - DVT Prophylaxis: SCDs and early ambulation - Dispo: Routine post-op care - patient meeting all milestones, ok for D/C home. SUBJECTIVE: The patient reports no acute issues. Pain is controlled, currently using oral pain meds. Denies CP/SOB/fevers/chills/leg pain. Denies nausea or vomiting. Tolerating a regular diet. Voiding Spontaneously. OBJECTIVE: Temp: [97.4 F (36.3 C)-98.9 F (37.2 C)] 98.2 F (36.8 C) Heart Rate: [60-102] 102 Resp: [13-20] 16 BP: (111-127)/(76-84) 123/78 No intake/output data recorded. GEN: NAD, A&Ox3 Head: normocephalic Cardiac: Reg rate. No peripheral edema. Pulm: respiratory effort normal Abdomen: soft, ATTP, non-distended, no rebound or guarding Ext: Bilat LE non-tender, no edema. SCDs in place. Incision: clean/dry/intact, suture and surgical glue in place, pain ball in place. MSK: FROM x 4. Neuro: Intact, interactive, appropriate. Current medications: acetaminophen 1,000 mg Intravenous Once Followed by acetaminophen 975 mg Oral Q8H gabapentin 100 mg Oral TID Followed by [START ON 11/12/2019] gabapentin 300 mg Oral TID ketorolac 30 mg Intravenous Q6H Or ibuprofen 400 mg Oral Q6H scopolamine 1 patch Transdermal Once senna-docusate 1 tablet Oral BID sodium chloride (PF) 5 mL Intravenous Q8H LLUVIA Any Rabago DO 11/09/2019 5:00 PM documented in this encounter* Bernabe Deutsch MD - 02/23/2020 10:35 AM EST [facility] [address] [place] [id number] OFFICE VISIT TELEHEALTH VISIT Patient Name: Caroline Guillen : 1990 MR #: [id number] Patient Location: Verified Patient is located in the [facility]. Patient Identification: Verified patient identity by Name and Date of . Consent obtained to proceed with telehealth visit. SUBJECTIVE: Caroline Guillen is a 29 y.o. who presents for Endometriosis (Telehealth.) Difficulty with connecting thru Zoom telehealth. Spoke with patient on the phone after Zoom meetingwas cut off. After a 5 -7 minute discussion came to the conclusion the appointment would be rescheduled. Patient's review of systems, past medical, surgical, social, and family histories have been reviewed and updated in the chart. OBJECTIVE: There were no vitals taken for this visit. There is no height or weight on file to calculate BMI. Physical Examination: Physical Exam Constitutional: Appearance: She is well-developed. Neurological: Mental Status: She is alert and oriented to person, place, and time. Psychiatric: Behavior: Behavior normal. Thought Content: Thought content normal. Judgment: Judgment normal. ASSESSMENT/PLAN: Caroline Guillen 29 y.o. presents for assessment of the following issues: Problem List Items Addressed This Visit Endometriosis Return for Follow Up. Carolyn Robbins MA, acted as scribe on behalf of Dr. Bernabe Deutsch and accurately documented clinical information at the direction of the physician contemporaneously, while she performed the patient's clinical service. 02/23/20 10:35 AM documented in this encounter Assessments Diagnosis Interstitial cystitis Chronic interstitial cystitis Endometriosis Endometriosis, site unspecified Diagnosis Endometriosis Endometriosis, site unspecified Reason for Referral Specialty Diagnoses / Procedures Referred By Contdeena t Referred To Contact Neurosurgery Diagnoses Lumbar radiculopathy Herniated lumbar intervertebral disc Elena Cowan, DO [address] [place] [address] [place] [address] [place] [address] [address] [place] [address] Referral ID Status Reason Start Date Expiration Date V isits Requested Visits Authorized [id number] Authorized 02/25/2023 02/25/2024 1 1 Additional Source Comments INFORMATION SOURCE (unrecogn ized section and content) DATE CREATED AUTHOR AUTHOR'S ORGANIZ ATION 08/03/2019 [facility] ([place]) DATE CREATED AUTHOR AUTHOR'S ORGANIZ ATION 02/22/2021 [facility] DATE CREATED AUTHOR AUTHOR'S ORGANIZ ATION 04/19/2021 [facility] DATE CREATED AUTHOR AUTHOR'S ORGANIZ ATION 03/27/2023 [facility] DATE CREATED AUTHOR AUTHOR'S ORGANIZ ATION 04/14/2023 [facility] Reason for Visit (unrecogniz ed section and content) Reason Comments Endometriosis Telehealth. Reason Comments Follow-up Pt present for f/u t o discuss the cramping that she is still having since surgery. Reason Comments Endometriosis Follow-up Pt presents for foll ow up of her endometriosis. Pt is concerned about possible left pelvic mass, lower abdominal cramping and lower back pain. Reason Comments Endometriosis Follow-up Pt presents today fo r a 3 month endometriosis follow up. Pt states she has been experiencing panic attacks since using Nuvaring; states she is still having spotting even with continuous Nuvaring, feeling fatigue and states spotting is lasting for approximately 2 weeks. Reason Comments Pre-operative Medical Risk Stratificatio n Reason Comments Pre-op Exam Reason Onset Date Comments Post-op Meds 04/09/2022 Reason Comments Post-op Pt presents today fo r a post-op appt. Pt had surgery on 04/16/22. Reason Comments Consult Specialty Diagnoses / Procedures Referred By Katlyn espinoza Referred To Contact Neurosurgery Diagnoses Lumbar radiculopathy Herniated lumbar intervertebral disc Elena Cowan, DO [address] [place] [address] Jessica Meyres Jr., DO [address] [facility] [address] [place] [address] Referral ID Status Reason Start Date Expiration Date Visits Re quested Visits Authorized [id number] Closed 02/25/2023 02/25/2024 1 1 Bernabe Deutsch MD - 11/09/2019 7:06 AM EDT H&P Notes (unrecognized sect ion and content) The H&P has been reviewed and the patient has been examined. I concur with the findings of the H&P. There are no significant changes. It is appropriate to proceed with the planned procedure. documented in this encounter Yanelis Eagle RN - 2019 1:31 PM EDT Nursing Notes (unrecognized section and content) Patient Instructions for [facility]: MAIN OR Prior to surgery: ? Please contact your Surgeon's office for the scheduled time of your surgery. ? Report to the Surgery Family Waiting Area in the [facility] 2 hours prior to your surgery. ? You may use the [employer] parking available at the Green Entrance /or park in the [facility] - a voucher for parking will be provided to you. ? One family member may accompany you back into the Pre-Op Area. ? If your surgeon has given you special guidelines for eating and drinking prior to surgery, follow their instructions. o If not, the evening before surgery you may eat a low-fat meal up until midnight. Do not eat anything, including gum, cough drops, hard candy or mints after midnight. Clear liquids, including water, Gatorade and black coffee (no dairy or creamer products), up to two hours prior to surgery are permitted. ? Do not smoke, chew tobacco or drink alcohol for 24 hours before surgery. ? Please take any medications you have been instructed to take the morning of your surgery with small sips of water. ? Please be sure to wear comfortable, appropriate clothing. ? Please remove all jewelry and piercings, including wedding rings. RINGS WILL BE CUT OFF IF UNABLE TO REMOVE. ? Leave all valuable items at home. ? Shower using Dial soap or as advised by your Surgeon's office. ? Do not apply any makeup or lotions. ? Gel or acrylic nails must be removed from both ring fingers. ? Remove all nail cambodian/product for surgeries involving extremities. ? Please remember to bring both your insurance card and a photo ID with you on the day of surgery. After your surgery: ? If you are having outpatient surgery you must have a licensed charter coach driver to take you home. The expectation is that this charter coach driver will remain at the hospital for the duration of your procedure. ? You are advised to have a family member with you for at least 24 hours after being under Anesthesia. documented in this encounter Assessment & Plan Note - Any Rabago DO - 11/09/2019 4:19 PM EDTPlan of Care - Vandana Salazar RN - 11/09/2019 2:29 PM EDT Miscellaneous Notes (unrecog nized section and content) Associated Problem(s): Endometriosis Caroline Guillen is a 29 y.o. female with a history of endometriosis, herniated disc, anxiety, migraines, who is POD#0 from RA EOE, BS, ureterolysis, L cystectomy, ovarian suspension, appendectomy, cystoscopy w hydrodistention. - HD stable; EBL 30cc - Pain: controlled with PO meds - MIVF/PO fluids: tolerating PO intake - GI: Tolerating solids - : Voiding spontaneously - ID: no antibiotics indicated - Resp: Incentive spirometry use - DVT Prophylaxis: SCDs and early ambulation - Dispo: Routine post-op care - patient meeting all milestones, ok for D/C home. Problem: Actual or potential alteration in health Goal: Absence of healthcare acquired conditions Outcome: Partially Met Goal: Knowledge of Interdisciplinary Plan of Care Outcome: Partially Met Goal: Knowledge of Enviroment Outcome: Partially Met Problem: Pain Goal: Manage acute pain Outcome: Partially Met Goal: Manage chronic pain Outcome: Partially Met Goal: Reduced pain sensation Outcome: Partially Met Goal: Achievement of comfort function goal Outcome: Partially Met Brief Post Operative Note Patient Name: Caroline Guillen : 1990 (29 y.o.) Date of Service: 11/09/2019 CSN: [id number] Procedure(s): ROBOTIC ASSISTED LAPAROSCOPIC EXCISION OF ENDOMETRIOSIS, BILATERAL SALPINGECTOMY, BILATERAL URETEROLYSIS, LEFT OVARIAN CYSTECTOMY, BILATERAL OVARIAN SUSPENSION, APPENDECTOMY CYSTOSCOPY WITH HYDRODISTENTION, ERAS PROTOCOL Pre-Operative Diagnoses: * Chronic pelvic pain in female [019143], Endometriosis [800774] Post-Operative Diagnoses: * Endometriosis of pelvic peritoneum [N80.3] * Endometriosis of parametrium [N80.3] * Endometriosis of rectovaginal septum [N80.4] * Endometrioma of ovary [N80.1] * Endometriosis of bladder [N80.8] * 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] * Adhesions due to endometriosis [N80.9] * Interstitial cystitis [N30.10] Surgeon(s) and Role: * Bernabe Deutsch MD - Primary Anesthesiologist: Guille Ochoa MD TITLE 1 TUTOR: Lisa Monroe CRNA [employer] Relief: Anais Ellis RN Scrub Person: ST Heladio Galvanizer Zinc Orientee: Eva Du RN Gal[employer]izer [employer]inc Preceptor: Mariah Parisi RN Panel Machine Setter: Roxie Escalante IRON ASSORTER: Kassidy Mensah CNP Operative findings: Stage IV endometriosis: Deep infiltrating endometriosis in the right lower quadrant anterior abdominal wall peritoneum above the pelvic brim, endometriotic staining throughout this area, scattered endometriosis overlying the pelvic brim, deep infiltr ating endometriosis along the right ovarian fossa at the level of the sacrum, sacral endometriosis, endometriotic lesions noted along the right common iliac, right ovarian adhesions to the right ovarian fossa secondary to endometriosis with indurated fibrotic tissue underneath overlying the right ureter, deep infiltrating endometriosis of the right uterosacral ligament, right pericolic gutter endometriosis, a large left ovarian endometrioma adherent to the sigmoid colon, rectum, left ovarian fossa and left uterosacral ligament, fibrotic indurated tissue underneath the left ovary, perirectal fossa endometriosis, bladder endometriosis, rectovaginal septum endometriosis, and appendiceal endometriosis. Normal- appearing upper abdomen, diaphragm, liver, stomach.Inflammation and increased vascularity with Hunner's lesions reflecting interstitial cystitis. Intra and immediate post-operative complications: none Type of anesthesia used: General Estimated blood loss: 30 mL Estimated urine output: 200 mL Specimen(s): ID Type Source Tests Collected by Time Destination A : RLQ Anterior abdominal wall endo, overlaying the psoas muscle Tissue Endometrium TISSUE EXAM Bernabe Deutsch MD 11/09/2019819 B : Right IP Endo Tissue Endometrium TISSUE EXAM Bernabe Deutsch MD 11/09/2019820 C : Right Pelvic Brim Tissue Endometrium TISSUE EXAM Bernabe Deutsch MD 11/09/2019 0821 D : Right Sacral Tissue Endometrium TISSUE EXAM Bernabe Deutsch MD 11/09/2019 0823 E : Right Iliac Endo Tissue Endometrium TISSUE EXAM Bernabe Deutsch MD 11/09/2019 0824 F : Mid- Sacral Endo Tissue Endometrium TISSUE EXAM Bernabe Deutsch MD 11/09/2019 0824 G : Right Ovarian Endo Tissue Endometrium TISSUE EXAM Bernabe Deutsch MD 11/09/2019 0830 H : Right Ovarian Fossa Tissue Endometrium TISSUE EXAM Bernabe Deutsch MD 11/09/2019 0833 I : Right Ovarian Fossa Tissue Endometrium TISSUE EXAM Bernabe Deutsch MD 11/09/2019 0834 J : Right Uterosacral Ligament Endo Tissue Endometrium TISSUE EXAM Bernabe Deutsch MD 11/09/2019 0848 K : Left Pelvic Brim Endo Tissue Endometrium TISSUE EXAM Bernabe Deutsch MD 11/09/2019 0848 L : Tissue Fallopian Tube, Bilateral TISSUE EXAM Bernabe Deutsch MD 11/09/2019 0850 M : Large Bowel Mesentery Endo Tissue Endometrium TISSUE EXAM Bernabe Deutsch MD 11/09/2019 0856 N : Left Pelvic Sidewall Endo Tissue Endometrium TISSUE EXAM Bernabe Deutsch MD 11/09/2019 0857 O : Left Bladder Endo Tissue Endometrium TISSUE EXAM Bernabe Deutsch MD 11/09/2019 0858 P : Bladder Endo Tissue Endometrium TISSUE EXAM Bernabe Deutsch MD 11/09/2019 0858 Q : Lower Uterine Segment Endo Tissue Endometrium TISSUE EXAM Bernabe Deutsch MD 11/09/2019 0858 R : left ovarian endometrioma Tissue Endometrium TISSUE EXAM Bernabe Deutsch MD 11/09/2019 0921 S : Left IP Endo Tissue Endometrium TISSUE EXAM Bernabe Deutsch MD 11/09/2019 0943 T : Left Ovarian Fossa Tissue Endometrium TISSUE EXAM Bernabe Deutsch MD 11/09/2019 0944 U : Left Uterosacral Ligament Endo Tissue Endometrium TISSUE EXAM Bernabe Deutsch MD 11/09/2019 0944 V : Rectovaginal Septum Endo Tissue Endometrium TISSUE EXAM Bernabe Deutsch MD 11/09/2019 1003 W : Right Perirectal Endo Tissue Endometrium TISSUE EXAM Bernabe Deutsch MD 11/09/2019 1004 X : Left Perirectal Endo Tissue Endometrium TISSUE EXAM Bernabe Deutsch MD 11/09/2019 1005 Y : Tissue Appendix TISSUE EXAM Bernabe Deutsch MD 11/09/2019 1005 Implant(s): Implant Name Type Inv. Item Serial No. Corn Miller Lot No. LRB No. Used Action BARRIER 5 X 6IN ADHESION TC 7 INTERCEED - [id number] BARRIER 5 X 6IN ADHESION TC 7 INTERCEED ETHICON [id number] N/A 1 Implanted CATH 5IN EXPANSION ON-Q SILVERSOAKER - [id number] Catheter - Implant CATH 5IN EXPANSION ON-Q SILVERSOAKER [employer] [id number] N/A 2 Implanted PUMP 100 X 2ML/HR BALL 2 DAY EXT RELEASE ON-Q - [id number] PUMP 100 X 2ML/HR BALL 2 DAY EXT RELEASE ON-Q [employer] [id number] N/A 1 Implanted KIT 10ML TISSEEL FROZEN W/ PRIMA SYRINGE - [id number] KIT 10ML TISSEEL FROZEN W/ PRIMA SYRINGE MENJIVAR BIO [id number] N/A 1 Implanted BARRIER 5 X 6IN ADHESION TC 7 INTERCEED - [id number] BARRIER 5 X 6IN ADHESION TC 7 INTERCEED ETHICON [id number] N/A 1 Implanted BARRIER 5 X 6IN ADHESION TC 7 INTERCEED - [id number] BARRIER 5 X 6IN ADHESION TC 7 INTERCEED ETHICON [id number] N/A 1 Implanted Drain(s): [REMOVED] Urethral Catheter Non-latex;Double-lumen;Straight-tip 16 Fr. (Removed) Wound(s): Wound 11/09/19 Surgical Wound Abdomen (Active) Dressing Status Dry;Intact;Occlusive 11/09/19 1050 Drainage Amount None 11/09/19 1050 Wound Bed Characteristics Intact;Approximated 11/09/19 1050 Wound Closure Surgical Adhesive 11/09/19 1050 Primary Dressing Gauze pad 11/09/19 1050 Secondary Dressing Transparent film 11/09/19 1050 Bernabe Deutsch MD 11/09/2019 11:44 AM documented in this encounter Care Teams (unrecognized sec tion and content) Fabrication Machine Operator Relationship Specialty Start Date End Date SaúlhennaElena DO PCP - General Family Medicine 07/23/19 Fabrication Machine Operator Relationship Specialty Start Date End Date SaúlhennaElena DO PCP - General Family Medicine 07/23/19 Fabrication Machine Operator Relationship Specialty Start Date End Date Elena Cowan [address] [place], [place] [id number] PCP - General Family Medicine 04/17/21 Fabrication Machine Operator Relationship Specialty Start Date End Date SaúlElena aguillon [address] [place], [place] [id number] PCP - General Family Medicine 04/17/21 Fabrication Machine Operator Relationship Specialty Start Date End Date SaúlLigia aguillonselma Toribio DO PCP - General Family Medicine 07/23/19 Fabrication Machine Operator Relationship Specialty Start Date End Date Saúlhenna Elenaselma Toribio DO PCP - General Family Medicine 07/23/19 Fabrication Machine Operator Relationship Specialty Start Date End Date SaúlhennaElena DO PCP - General Family Medicine 07/23/19 Fabrication Machine Operator Relationship Specialty Start Date End Date Elena Cowan DO [address] [place] [address] [place] [address] PCP - General Family Medicine 07/23/19 Fabrication Machine Operator Relationship Specialty Start Date End Date Elena Cowan DO [address] [place] [address] [place] [address] PCP - General Family Medicine 07/23/19 Fabrication Machine Operator Relationship Specialty Start Date End Date Elena CowanDO [address] [place] [address] [place] [address] PCP - General Family Medicine 07/23/19 Fabrication Machine Operator Relationship Specialty Start Date End Date Elena CowanDO [address] [place] [address] [place] [address] PCP - General Family Medicine 07/23/19 Bernabe Deutsch MD [address] [place] [address] Consulting Physician Obstetrics/Gynecology 05/01/22 Fabrication Machine Operator Relationship Specialty Start Date End Date ChapoElena DO [address] [place] [address] [place] [address] PCP - General Family Medicine 07/23/19 Bernabe Deutsch MD [address] [place] [address] Consulting Physician Obstetrics/Gynecology 05/01/22 Fabrication Machine Operator Relationship Specialty Start Date End Date Elena Cowan DO [address] [place] [address] [place] [address] PCP - General Family Medicine 07/23/19 Bernabe Deutsch MD [address] [place] [address] Consulting Physician Obstetrics/Gynecology 05/01/22 Fabrication Machine Operator Relationship Specialty Start Date End Date Elena Cowan DO [address] [place] [address] PCP - General Family Medicine 07/23/19 Bernabe Deutsch MD [address] [place] [address] Consulting Physician Obstetrics/Gynecology 05/01/22 Fabrication Machine Operator Relationship Specialty Start Date End Date Elena Cowan DO [address] [facility] [place] [address] PCP - General Family Medicine 07/23/19 Bernabe Deutsch MD [address] [place] [address] Consulting Physician Obstetrics/Gynecology 05/01/22 Scheduled Active and Recently Administ ered Medications (unrecognized section and content) Continuous Medication Order 04/15/2021 04/16/2021 04/17/2021 lactated ringers infusion IntraVENous, at 100 mL/hr, CONTINUOUS, Starting on Fri04/17/21 at 0830, Pre-op (day of surgery) 0800 (New Bag - Prov ider: Yoko Campos RN)0854 (NoRateChange - Provider: GALO Philip CRNA)0920 (Rate/Dose Change - Provider: GALO Philip CRNA) lactated ringers infusion IntraVENous, at 125 mL/hr, CONTINUOUS, Starting on Fri04/17/21 at 0945, Post-op 0945 (Due) PRN Medication Order 04/15/2021 04/16/2021 04/17/2021 0.9 % sodium chloride infusion 25 mL, IntraVENous, at 100 mL/hr, PRN, If patient receiving piggyback infusions without ordered maintenance IV fluids or with frequent/long duration piggyback infusions, Starting on Fri04/17/21 at 0927, Administer at the same rate as the piggyback being infused., Post-op sodium chloride flush 0.9 % injection 10 mL 10 mL, IntraVENous, PRN, Line Care, Starting on Fri04/17/21 at 09, After every IV line use, Post-op FOR RECORDS PERTAINING TO PATIENTS WHO ARE OR HAVE BEEN ENROLLED IN A CHEMICAL DEPENDENCY/SUBSTANCEABUSE PROGRAM, SOME INFORMATION MAY BE OMITTED. This clinical summary was aggregated from multiple sources. Caution should be exercised in using it in the provision of clinical care. This summary normalizes information from multiple sources, and as a consequence, information in this document may materially change the coding, format and clinical context of patient data. In addition, data may be omitted in some cases. CLINICAL DECISIONS SHOULD BE BASED ON THE PRIMARY CLINICAL RECORDS. [facility]. provides no warranty or guarantee of the accuracy or completeness of information in this document.
[2023-04-23 12:23] LABS: Absolute Lymphocyte Count 3.48 X10^3/uL (0.83-4.51); Absolute Neutrophil Count 5.6 X10^3/uL (2.0-7.7); Basophil# 0.07 X10^3/uL; Basophil% 0.7 % (0-1); Eosinophil# 0.04 X10^3/uL; Eosinophils% 0.4 % (0-5); Hematocrit 40.8 % (37-47); Hemoglobin 13.7 g/dL (12.0-15.0); Lymphocyte # 3.48 X10^3/ul (0.83-4.51); Lymphocyte % 35.5 % (19-41); Mean Corp Hgb Conc 33.6 g/dL (32-36); Mean Corpuscular Volume 92.3 fL (81-99); Monocyte# 0.55 X10^3/uL; Monocyte% 5.6 % (0-10); NRBC Flagged by Analyzer 0 % (0-5); Neutrophil # 5.62 X10^3/uL (2.7-7.7); Neutrophil % 57.5 % (47-70); Platelet Count 338 K/mm3 (150-450); RBC Distribution Width CV 11.8 % (11.6-14.6); RBC Distribution Width SD 39.7 fl (35.1-43.9); Red Blood Count 4.42 M/mm3 (4.2-5.4); White Blood Count 9.8 K/mm3 (4.4-11.0)
[2023-04-23 12:34] LABS: Partial Thromboplast Time 30.4 Seconds (24.1-36.2); Prothrombin Time (Protime)PT. 13.5 SECONDS (11.7-14.9)
[2023-04-23 12:42] LABS: Anion Gap 7 (5-15); BUN 11 mg/dL (7-18); BUN/Creat Ratio 13.3 RATIO (10-20); Calcium,Total 9.6 mg/dL (8.5-10.1); Chloride 105 mmol/L (98-107); Creatinine, Serum 0.82 mg/dL (0.55-1.02); EST Glomerular Filtration Rate 84 mL/min (>60); Est Glom Filt Rate - Afr Amer 102 mL/min (>60); Glucose 81 mg/dL (74-106); Potassium 4.2 mmol/L (3.5-5.1); Sodium Level 139 mmol/L (136-145)
== END | disposition home or self-care (01) ==
LOC: BFHLAB 09:31
PROVIDERS: PCP Nurse Practitioner Family; Visit Provider Nurse Practitioner Family
DX: Z01.818 Encounter for other preprocedural examination (principal)
CPT/HCPCS: 36415; 80048; 85025; 85610; 85730

== ENCOUNTER → 2023-05-16 | Outpatient (CLI) | payer BC, SELFPAY ==
[2023-05-16 17:05] LABS: Absolute Lymphocyte Count 2.58 X10^3/uL (0.83-4.51); Basophil# 0.04 X10^3/uL; Basophil% 0.5 % (0-1); Eosinophil# 0.05 X10^3/uL; Eosinophils% 0.6 % (0-5); Hemoglobin 13.2 g/dL (12.0-15.0); Lymphocyte # 2.58 X10^3/ul (0.83-4.51); Lymphocyte % 32.2 % (19-41); Mean Corpuscular Hgb 30.3 pg (27.0-32.0); Mean Corpuscular Volume 91.7 fL (81-99); Monocyte# 0.36 X10^3/uL; Monocyte% 4.5 % (0-10); NRBC Flagged by Analyzer 0 % (0-5); Neutrophil # 4.97 X10^3/uL (2.7-7.7); Platelet Count 444 K/mm3 (150-450); RBC Distribution Width CV 11.6 % (11.6-14.6); RBC Distribution Width SD 39.1 fl (35.1-43.9); Red Blood Count 4.36 M/mm3 (4.2-5.4)
[2023-05-16 17:32] LABS: ALB/GLOB Ratio 1.1 RATIO (0.9-2.4); AST(SGOT) 42 U/L (15-37); Alanine Aminotransfer ALT/SGPT 87 U/L (13-56); Albumin, Serum 4.1 g/dL (3.2-5.0); Alkaline Phosphatase 100 U/L (45-117); Anion Gap 5 (5-15); BUN 10 mg/dL (7-18); BUN/Creat Ratio 12.9 RATIO (10-20); Calcium,Total 9.2 mg/dL (8.5-10.1); Chloride 106 mmol/L (98-107); Creatinine, Serum 0.78 mg/dL (0.55-1.02); EST Glomerular Filtration Rate 90 mL/min (>60); Est Glom Filt Rate - Afr Amer 109 mL/min (>60); Globulin 3.6 g/dL (2.2-4.2); Glucose 94 mg/dL (74-106); Potassium 3.8 mmol/L (3.5-5.1); Protein, Total 7.7 g/dL (6.4-8.2); Sodium Level 138 mmol/L (136-145)
[2023-05-16 17:34] LABS: Vitamin B12 660 pg/mL (211-911); Vitamin D,25 Hydroxy 66.8 ng/mL
== END | disposition home or self-care (01) ==
LOC: LAB 16:46
PROVIDERS: PCP Family Medicine; Referring Provider Family Medicine; Visit Provider Family Medicine
DX: E55.9 Vitamin D deficiency, unspecified (principal); Z51.81 Encounter for therapeutic drug level monitoring
CPT/HCPCS: 36415; 80053; 82306; 82607; 85025

== ENCOUNTER → 2023-06-24 | Outpatient (CLI) | payer BC, SELFPAY ==
[2023-06-24 12:58] LABS: Absolute Lymphocyte Count 2.54 X10^3/uL (0.83-4.51); Absolute Neutrophil Count 3.1 X10^3/uL (2.0-7.7); Basophil# 0.05 X10^3/uL; Basophil% 0.8 % (0-1); Eosinophil# 0.09 X10^3/uL; Eosinophils% 1.5 % (0-5); Hematocrit 43.4 % (37-47); Hemoglobin 14.2 g/dL (12.0-15.0); Lymphocyte # 2.54 X10^3/ul (0.83-4.51); Lymphocyte % 41.2 % (19-41); Mean Corp Hgb Conc 32.7 g/dL (32-36); Mean Corpuscular Hgb 30.7 pg (27.0-32.0); Mean Corpuscular Volume 93.9 fL (81-99); Mean Platelet Vol. 10.1 fl (6.2-12.0); Monocyte# 0.42 X10^3/uL; Monocyte% 6.8 % (0-10); NRBC Flagged by Analyzer 0 % (0-5); Neutrophil # 3.06 X10^3/uL (2.7-7.7); Neutrophil % 49.5 % (47-70); Platelet Count 396 K/mm3 (150-450); RBC Distribution Width CV 11.9 % (11.6-14.6); RBC Distribution Width SD 41.1 fl (35.1-43.9); Red Blood Count 4.62 M/mm3 (4.2-5.4); White Blood Count 6.2 K/mm3 (4.4-11.0)
[2023-06-24 13:31] LABS: Vitamin B12 635 pg/mL (211-911); Vitamin D,25 Hydroxy 72.8 ng/mL
[2023-06-24 14:52] LABS: ALB/GLOB Ratio 1.1 RATIO (0.9-2.4); AST(SGOT) 38 U/L (15-37); Alanine Aminotransfer ALT/SGPT 67 U/L (13-56); Albumin, Serum 3.9 g/dL (3.2-5.0); Alkaline Phosphatase 91 U/L (45-117); Anion Gap 7 (5-15); BUN 11 mg/dL (7-18); Calcium,Total 9.3 mg/dL (8.5-10.1); Chloride 106 mmol/L (98-107); Creatinine, Serum 0.73 mg/dL (0.55-1.02); EST Glomerular Filtration Rate 96 mL/min (>60); Est Glom Filt Rate - Afr Amer 116 mL/min (>60); Ferritin 44 ng/mL (8-252); Globulin 3.7 g/dL (2.2-4.2); Glucose 85 mg/dL (74-106); Iron 107 ug/dL (50-170); Potassium 3.8 mmol/L (3.5-5.1); Protein, Total 7.6 g/dL (6.4-8.2); Sodium Level 138 mmol/L (136-145)
[2023-06-25 15:32] LABS: Magnesium 2.4 mg/dL (1.6-2.6)
== END | disposition home or self-care (01) ==
LOC: LAB.FUTURE 10:40 → BFHLAB 10:54
PROVIDERS: PCP Family Medicine; Referring Provider Family Medicine; Visit Provider Family Medicine
DX: E55.9 Vitamin D deficiency, unspecified (principal); E53.8 Deficiency of other specified B group vitamins; Z51.81 Encounter for therapeutic drug level monitoring; D64.9 Anemia, unspecified; R25.2 Cramp and spasm
CPT/HCPCS: 36415; 80053; 82306; 82607; 82728; 82746; 83540; 83735; 85025

== ENCOUNTER 2023-08-06 12:00 | Outpatient (RCR) | payer BC, SELFPAY ==
--- NOTE | 2023-06-06 08:01 | HP.PTEVAL_ITS ---
Patient's Visit Information Visit Information Visit Information: KRISTEL VANEGAS is a 32 year old F referred to Physical Therapy by DANIELLA RUSS with a diagnosis of L5-6 discectomy 04/30/23. Date of Evaluation: 06/06/23 Physical Therapist: Raheem Mathew, PT, ATC Visit Plan Frequency: 2-3x /Week Duration: 4-6 Weeks Plan: Postural education, core stab ex's, nustep, and HEP Subjective Subjective: DOS: 04/30/23. Pt reports she had surgery to remove scar tissue and perform a discectomy in her L/S that occurred secondary to a previous surgery she had on her L/S. Pt reports she has been feeling a lot better since her DOS. Pt notes she only took pain meds for the first 6 days after surgery. Pt also notes she has negative reactions to meds, so she wanted to get off of them as soon as possible. Pt reports she has been still having intermittent L LE radiculopathy when she has been very active. Pt notes she has occasional sleep difficulty secondary to pain. Pt reports she works for the [employer] and is off until 07/23/23 since surgery. Pt reports prolonged sitting is what causes her the most pain right now. Pt reports she has a 10# lifting limit at this time. Pt reports she has been much more posturally aware since having her surgery. 3/10 pain in her LB while sitting here at rest, 5/10 pain at worst (when she has over done it) Pain LBP: Pain Intensity (Out of 10): 3 Pain Intensity Range: 5 Objective Objective: Neuro: B LE sensation is WNL to light touch. B patellar reflex= 2/3 Observation: Incision is healed a this time. No obvious signs of infection MMT: B hip flex= 32, B hip add= 51 #F, B hip abd= 34 #F ROM: WNL in all planes TU.05 sec Balance/Special Test Scores Oswestry Low Back Score: 12 Goals Goal 1:: Decrease LBP x 50% to aid with sleep Goal Time Frame: 4-6 Weeks Goal 2:: Pt will both verbally and physically display proper posture to aid with preventing future episodes of LBP Goal Time Frame: 4-6 Weeks Goal 3:: Increase core stability to WFL to aid with RTW Goal Time Frame: 4-6 Weeks Rehabilitation Potential Physical Therapy Diagnosis: Pt has neck pain and core weakness at this time secondary to having L/S surgery Rehabilitation Potential: Good Anticipated Interventions Patient/Client Instruction: Educate patient on: Condition and Plan of Care For the Purpose of:: To improve self management Therapeutic Exercise to Include: Strength training, Endurance training, Body mechanics, Postural training and Dynamic Lumbar Stabilization For the Purpose of:: To decrease pain, To improve muscle performance and motor function and To increase tolerance to activity/condition/position Text: Thank you for the opportunity to evaluate your patient. For Medicare and Medicare HMO plans, please review the plan of care and approve it. It will need to be FAXED BACK to us at [phone] for Medicare purposes. For Medicare only, by signing this I certify the plan of care. Please let me know if there are questions or concerns regarding this plan of care. Physician Signature: Date:
--- NOTE | 2023-07-08 09:50 | HP.PTREVAL ---
Re-Evaluation Intro: DANIELLA RUSS, It has been my pleasure to treat KRISTEL VANEGAS over the last 12 visits for L5-6 discectomy 04/30/23. Please see the progress note below for an update on the physical therapy plan of care! Subjective Subjective: PATIENT REPORTS THE COLDNESS AND THE NUMBNESS IN HER LEFT LEG IS GONE. 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 SHE RELATES HER IMPROVEMENT TO REST AND THERAPY. SHE REPORTS THAT IF SHE OVER DOES IT AT HOME WITH TOO MUCH BENDING, SQATTING AND LIFTING HER SX'S INCREASE. FOR EXAMPLE - C/O INCREASED PAIN AFTER PICKING BABY UP OFF THE FLOOR. PATIENT REPORTS HER PAIN RANGES 0-4/10 CURRENTLY. 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 PATIENT REPORTS SHE DOESN'T CURRENTLY HAVING ANY PHYSICIAN RESTRICTIONS THAT SHE IS AWARE OF. PATIENT REPORTS SHE THINKS IT IS JUST TAKING TIME FOR HER TO GET BETTER AND SHE DENIES ANY OF HER SX'S GETTING WORSE. TENTATIVE RETURN TO WORK DATE IS 08/04/23 PER PATIENT REPORT. Objective Objective/Function: This patient is making great progress with PT and is a good candidate to continue PT based on progress made and room for further improvement to prepare for return to a very physical job. Would recommend focus on Core Strength and Endurance. Patient is agreeable. Upon Exam Today: Neuro: Intact Observation: Incision is healed a this time. No obvious signs of infection MMT: L hip flex= 40, R Hip Flex 37.1, L hip add= 37.3, R Hip Add 37.1 #F, L hip abd= 37.1, R Hip Abd 36.9 # Peak Force Core Strength: Good Lumbar Mvmt Loss: Flex - Min Ext - Min R SG - Min L SG - Min Patient c/o pinching in left low back area briefly after lumbar rom testing in standing and tingling down left leg to calf briefly after lumbar extension ROM testing in lying. All increased symptoms resolved within a few minutes. The last 2 exercise sessions included the following with good technique and without c/o increased symptoms: 07/02/23: NuStep: L3 5 minutes Lateral Walks: Teal 32'x2 laps 1a Goblet Squat: 20# 2x10 1b Split Squat: 10# offset 2x10 each 1c Supported Single Leg RDL 10 2x8 2a Glute Bridge March: Teal 2x10 each Lateral walks w/ teal band 24: NuStep: L3 5 minutes Lateral Walks: Teal 32'x2 laps 1a Kettlebell Deadlift: 25# 2x10 1b Goblet Lateral Lunge: 15# 2x8 each leg 1c Unilateral Carry: 30# 68'x2 laps each arm 2a Glute Bridge March: Teal 2x10 each Plan Plan Plan: *DOCUMENT OUTCOME OF FOLLOW UP WITH SURGEONS ASSIST* Core, 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 Balance/Gait/Functional tests Balance/Special Test Scores Oswestry Low Back Score: 8 Goals Goals Goal 1:: Decrease LBP x 50% to aid with sleep Goal Time Frame: 4-6 Weeks Goal Progress: Goal Met Goal 2:: Pt will both verbally and physically display proper posture to aid with preventing future episodes of LBP Goal Time Frame: 4-6 Weeks Goal Progress: Goal Met Goal 3:: Current Goal: Increase core stability to WFL to aid with RTW Goal Time Frame: 4-6 Weeks Goal Progress: Progressing Anticipated Interventions Anticipated Interventions Patient/Client Instruction: Educate patient on: Condition and Plan of Care For the Purpose of:: To improve self management Therapeutic Exercise to Include: Strength training, Endurance training, Body mechanics, Postural training and Dynamic Lumbar Stabilization For the Purpose of:: To decrease pain, To improve muscle performance and motor function and To increase tolerance to activity/condition/position Re-Evaluation Ending Re-evaluation ending: Please do not hesitate to contact me at [phone] by phone or if you have questions or concerns regarding this new plan of care! Sincerely, Rachael Wheatley, PT, Cert MDT
== END 2023-08-06 19:00 | disposition home or self-care (01) ==
LOC: PT 12:00
PROVIDERS: PCP Family Medicine
DX: M54.16 Radiculopathy, lumbar region (principal)
CPT/HCPCS: 97110; 97113; 97161; 97530

== ENCOUNTER 2023-08-07 11:53 | Emergency (ER) | payer BC, SELFPAY ==
[2023-08-07 11:54] VITALS: BP 118/75; PULSE 68; RESP 18; TEMP 36.3; O2SAT 100; BMI 27.4
--- NOTE | 2023-08-07 12:27 | ED.VIS.GI ---
HPI HPI - GI History of Present Illness Chief Complaint: Abd Pain Informant: patient, spouse/S.O. and EMS Narrative Narrative: Patient has been having pain in her right lower quadrant for the past 4 or 5 hours, it is waxing and waning pain that feels like spasms and severe sharp pains. Has happened before when she has been constipated. She has not been constipated recently. She did have some small amount of diarrhea this morning, so she did not try a rectal glycerin suppository until later which did not do anything major. She also tried taking some stool softeners but did not have any enemas at home which have helped in the past so they tried a tapwater homemade enema, she had a little bit of loose stool come out but did not solve any other issues. She has been vomiting when the pain gets severe. No hematemesis or coffee-ground emesis. She has a history of this and quotes multiple abdominal surgeries as possibly related, no surgeries in the past couple months, she has never been diagnosed with a bowel obstruction. She states she usually does not take this long for the symptoms to go away, but she has had them all before the usually last an hour or 2 until she has a small bowel movement and then the pain often resolves. This has been occurring for the past year or so since her last surgery. Patient also states she has a history of interstitial cystitis. 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 [facility] Medical History Psychotic episode COVID History of steroid therapy Marijuana use Anxiety Bladder disease Difficulty swallowing Gastric reflux Chest pain History of irregular heartbeat Chronic neck and back pain Limb weakness Severe headache Fatigue Shoulder pain Home Medications ?Medication ?Instructions ?Recorded ?Last Taken ?Type acetaminophen 500 mg tablet 500 mg PO Q6H PRN Pain 04/02/21 Unknown History ascorbic acid (vitamin C) 1,000 mg 1 cap PO BID 04/02/21 Unknown History capsule,extended release cholecalciferol (vitamin D3) 100 100 mcg PO DAILY 04/02/21 Unknown History mcg (4,000 unit) capsule fish, borage, flaxseed oils-omega 1 cap PO DAILY 04/02/21 Unknown History 3,6,9 comb no.1 1,200 mg capsule (Caribou 3-6-9) loratadine 10 mg tablet (Claritin) 10 mg PO DAILY 04/02/21 Unknown History meloxicam 15 mg tablet 15 mg PO DAILY PRN PRN Pain 04/02/21 Unknown History multivit with 1 tab PO DAILY 04/02/21 Unknown History [id number] 18 mg iron-800 mcg-150 mg tablet (Vitamin D3 Complete) naproxen sodium 220 mg tablet 220 mg PO Q8H PRN PRN Pain 04/02/21 Unknown History (Aleve) omeprazole 20 mg tablet,delayed 20 mg PO DAILY 04/02/21 Unknown History release sumatriptan succinate 100 mg tablet 100 mg PO Q2H PRN Pain 04/02/21 Unknown History tramadol 50 mg tablet 50 mg PO Q6H PRN Pain 04/02/21 Unknown History vitamin A 2,400 mcg capsule 2,400 mcg PO DAILY 04/02/21 Unknown History hyoscyamine sulfate 0.125 mg tablet 0.125 mg PO Q4H PRN abdominal 08/07/23 Unknown Rx discomfort #20 tabs promethazine 25 mg tablet 25 mg PO Q6H PRN PRN Nausea #20 08/07/23 Unknown Rx TABLETS Allergy/AdvReac Type Severity Reaction Status Date / Time dexamethasone Allergy Severe Other Verified 08/07/23 12:01 gabapentin Allergy Other Verified 08/07/23 12:01 nickel Allergy Rash Verified 08/07/23 12:01 Penicillins Allergy Anaphylaxis Verified 08/07/23 12:01 Surgical History History of bilateral salpingectomy History of appendectomy excision of endometriosis History of discectomy Social History Smoking Status: Never smoker alcohol intake: current alcohol intake frequency: a few times a month substance use type: does not use ROS ROS ED Constitutional Constitutional ED: Denies chills or fever(s) Eyes Eyes: Denies change in vision or diplopia ENT ENT ED: Denies rhinorrhea or sore throat Cardiovascular Cardiovascular: Denies chest pain or palpitations Respiratory/Chest Respiratory/Chest: Denies cough or dyspnea Gastrointestinal Gastrointestinal: Reports abdominal pain, constipation, diarrhea, nausea and vomiting; Denies melena Genitourinary Genitourinary ED: Denies dysuria or hematuria Musculoskeletal Musculoskeletal: Denies back pain or neck pain Integumentary Denies abscess or rash Neurologic Neurologic: Denies headache(s), paresthesias or weakness Psychiatric Psychiatric: Denies suicidal thoughts EXAM Physical Exam Const Vital Signs: 08/07/23 11:54 08/07/23 15:21 08/07/23 17:30 Temperature 97.3 F L Temperature Source Oral Pulse Rate 68 64 72 Respiratory Rate 18 18 Blood Pressure 118/75 102/60 110/71 Blood Pressure Mean 89 74 83 Pulse Ox 100 100 100 Oxygen Delivery Method Room Air Room Air Positive well nourished and well developed General Appearance ED: well developed and NAD HEENT Reports moist mucous membranes normocephalic and atraumatic Eyes PERRL and EOMs intact bilaterally Neck full ROM and supple Resp normal respiratory effort and clear to auscultation bilaterally Cardio regular rate, regular rhythm and no murmurs GI non-distended GI Narrative: Nontender throughout. Left side. Voluntary guarding over the right from patient who is lying in right lateral decubitus, turning more prone, limiting the exam. Rectal nontender no palpable obstipated stool. No blood. Nothing melanotic. Auscultation: normoactive bowel sounds Palpation: soft Back/Spine no CVA tenderness General Back: other FROM Extremity normal to inspection General Extremety ED: Negative for edema, pulses abnormal or tenderness General Extremity: Negative for edema or pulses abnormal Neuro oriented x3, CN's II-XII intact bilaterally and no sensory deficits noted Sensorium / Orientation: awake and alert Motor Exam: strength 5/5 throughout Psych thought process normal Mood & Affect: anxious Skin no rashes or lesions noted and no wounds MDM MDM MDM Narrative Medical decision making narrative: Patient initially in severe pain, claims she has had this before with constipation. Initially offered an enema and pain medication but I argued against narcotics because if it was constipation it would make it worse that she was in agreement. However, the patient gave nursing several delays because she was unable to tolerate certain positions and lying down for the enema, wanted to give pain medication first which certainly was understandable, but given the delays instead of waiting to see if there were results before we obtain studies, thought it more reasonable to obtain blood work and a CT scan given her multiple surgeries in the past and telling me that she has a history of lots of scar tissue in her abdomen, to evaluate for the possibility of a bowel obstruction as well. She has had a prior appendectomy. Labs do show a leukocytosis, I reviewed the CT images and report which I agree with, it showed some nonspecific noninflammatory tissue in the right lower quadrant but a large what appears to be a left ovarian mass and no other acute abnormalities no bowel obstruction. Pelvic ultrasound recommended. By this time the patient had not had the enema and we decided to forego that especially since looking at the images she has a lot of hard stool in the right side which may or may not explain functional colonic spasm/pain that could be explaining her symptoms. She does not have pain on the left. We did give her some morphine to help her with the pain and on reexamination her abdomen is very benign. I obtained the ultrasound, I reviewed the images and report which I agree with, it shows about 8.5 cm septated cystic mass in the left ovary, difficult to see any ovarian flow but there is venous return noted by the radiologist, he states in his report that it suggest possibility of ovarian torsion. At this time the patient was having a couple waves of pain but she has no tenderness in the left lower abdomen/pelvis. I discussed with Dr. Mcmahon who is on for unassigned gynecology. She reviewed the images. She states this patient is very unlikely to have acute ovarian torsion based on the information I am providing and these ancillary testing especially with lots of adhesions in the abdomen which makes torsion much less likely. 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 Lab Data Attestation: I reviewed the patient's lab results. Labs: Laboratory Results - last 24 hr 08/07/23 13:15 WBC 14.5 H RBC 4.51 Hgb 13.6 Hct 40.9 MCV 90.7 MCH 30.2 MCHC 33.3 RDW Std Deviation 38.8 RDW Coeff of Luanne 11.7 Plt Count 354 MPV 9.7 Immature Gran % (Auto) 0.400 Neut % (Auto) 85.6 H Lymph % (Auto) 10.8 L Vinton % (Auto) 2.8 Eos % (Auto) 0.1 Baso % (Auto) 0.3 Absolute Neuts (auto) 12.4 H Absolute Lymphs (auto) 1.57 Nucleated RBC % 0 Sodium 137 Potassium 3.3 L Chloride 110 H Carbon Dioxide 23.0 Anion Gap 4 L BUN 12 Creatinine 0.75 Estim Creat Clear Calc 118.63 Est GFR (MDRD) Af Amer 113 Est GFR (MDRD) Non-Af 93 BUN/Creatinine Ratio 16.0 Glucose 121 H Calcium 9.3 Radiography Diagnostic Testing: Clinical Impression(s) from Imaging Studies Abdomen/Pelvis CT 08/07/23 13:37 IMPRESSION: 1. 8.5 x 8.7 x 9 cm multiseptated left ovarian cystic mass is ovarian neoplasm until proven otherwise. 2. Radiopaque surgical clips below the cecum may represent prior appendectomy. 3. Suspicious tapering focal thickening behind and lateral to the cecum. This is atypical for epiploic appendagitis since there are no inflammatory changes of the surrounding fat. Exact etiology is unknown. Electronically Signed: Neville Kerr MD at 15:23 EDT , Pelvis Ultrasound 08/07/23 16:16 IMPRESSION: Complex multi septated cystic mass thick walled septation without arterial flow at this time and demonstrating fluid in the cul-de-sac suspicious for possible coexisting Clinical correlation recommended Electronically Signed: Leonidas Waller MD at 17:48 EDT , Management Discussion w/another healthcare provider: Parts Counter Associate (Gynecology Dr. Mcmahon) Discharge Plan Triage Chief Complaint: Abd Pain ED Provider: Pito Vega Dx/Rx/DC Orders Clinical Impression: Acute right lower quadrant pain, Mass of left ovary Instructions: ED Constipation (Adult) Prescriptions: New promethazine 25 mg tablet 25 mg PO Q6H PRN PRN (Reason: Nausea) Qty: 20 0RF hyoscyamine sulfate 0.125 mg tablet 0.125 mg PO Q4H PRN (Reason: abdominal discomfort) Qty: 20 0RF No Action vitamin A 2,400 mcg Capsule 2,400 mcg PO DAILY sumatriptan succinate 100 mg Tablet 100 mg PO Q2H PRN (Reason: Pain) meloxicam 15 mg Tablet 15 mg PO DAILY PRN PRN (Reason: Pain) tramadol 50 mg Tablet 50 mg PO Q6H PRN (Reason: Pain) acetaminophen [Tylenol Ex Str Rapid Release] 500 mg Tablet 500 mg PO Q6H PRN (Reason: Pain) naproxen sodium [Aleve] 220 mg Tablet 220 mg PO Q8H PRN PRN (Reason: Pain) Vitamin C 1,000 mg Capsule, Extended Release 1 cap PO BID Vitamin D3 Complete 18 mg iron-800 mcg-150 mg Tablet 1 tab PO DAILY Vitamin D3 100 mcg (4,000 unit) Capsule 100 mcg PO DAILY Caribou 3-6-9 1,200 mg Capsule 1 cap PO DAILY loratadine [Claritin] 10 mg Tablet 10 mg PO DAILY omeprazole 20 mg Tablet,Delayed Release (Dr/Ec) 20 mg PO DAILY Primary Care Provider: Elena Cowan Referrals: Elena Cowan DO [Primary Care Provider] - Activity Restrictions/Additional Instructions: Follow-up with your sandblaster supervisor soon as possible. Radiologist has called this a complex multicystic structure with thick walled septations in your left ovary. The structure is 7.8 x 5.5 x 7.7 cm. Drink plenty of fluids tonight after taking half of the bottle of magnesium citrate. If after 24 hours you have not had a bowel movement, you may repeat with the other half of the bottle. Print Language: Egyptian Disposition Disposition: Home, Self Care
[2023-08-07] MEDS: Dicyclomine 20 MG/2 ML Vial IM (12:43)
[2023-08-07] MEDS: 0.9% Normal Saline (500mL Bag) 500 ML 999 ML IV (13:18)
[2023-08-07] MEDS: Ondansetron 4 MG/2 ML Vial IV (13:18)
--- NOTE | 2023-08-07 13:37 | CT_ITS ---
EXAM: CT ABDOMEN AND PELVIS WITHOUT INTRAVENOUS CONTRAST CLINICAL INDICATION: Right lower quadrant pain. TECHNIQUE: Helically acquired images were obtained of the abdomen and pelvis without intravenous contrast. This CT exam was performed using one or more of the following dose reduction techniques: automated exposure control, adjustment of the mA and/or kV according to patient size, and/or use of iterative reconstruction technique. RADIATION DOSE: CTDIvol = 7.93 mGy, DLP = 432.15 mGy-cm COMPARISON: No relevant prior studies available. FINDINGS: LOWER THORAX: Unremarkable. Lung bases are clear. No cardiomegaly. No significant pericardial effusion. ABDOMEN: LIVER: Unremarkable. Homogeneous. GALLBLADDER AND BILE DUCTS: Unremarkable. No calcified gallstones. No gallbladder distention or wall edema. No intra- or extrahepatic biliary ductal dilation. PANCREAS: Unremarkable. No focal cystic mass. SPLEEN: Unremarkable. Normal size without focal cystic or solid mass. ADRENALS: Unremarkable. No nodules. KIDNEYS AND URETERS: Unremarkable. Normal renal size and position. No hydronephrosis. STOMACH AND BOWEL: Unremarkable. No stomach or bowel distention. No focal inflammatory change. PELVIS: APPENDIX: Suspicious focal thickening behind the cecum and lateral to the cecum. This measures approximately 1.2 cm wide in the coronal reconstructed images. I am uncertain if this is related to the appendix. However, there are radiopaque surgical clips below the cecum possibly from prior appendectomy. BLADDER: Unremarkable. REPRODUCTIVE: 8.5 x 8.7 x 9 cm multi septated left ovarian cystic mass is ovarian neoplasm until proven otherwise. ABDOMEN and PELVIS: INTRAPERITONEAL SPACE: Unremarkable. No ascites or other fluid collection. No free air. BONES/JOINTS: Pronounced L4-L5 degenerative disc space height narrowing. No suspicious lytic or blastic abnormality. SOFT TISSUES: Unremarkable. No discrete abdominal or pelvic wall hernia. VASCULATURE: Unremarkable. Abdominal aorta is non-dilated. LYMPH NODES: Unremarkable. No enlarged lymph nodes. CT/Abdomen/Pelvis without Cont IMPRESSION: 1. 8.5 x 8.7 x 9 cm multiseptated left ovarian cystic mass is ovarian neoplasm until proven otherwise. 2. Radiopaque surgical clips below the cecum may represent prior appendectomy. 3. Suspicious tapering focal thickening behind and lateral to the cecum. This is atypical for epiploic appendagitis since there are no inflammatory changes of the surrounding fat. Exact etiology is unknown. Electronically Signed: Neville Kerr MD at 15:23 EDT ,
[2023-08-07] MEDS: Ketorolac 30 MG/ML Syringe IV (13:45)
[2023-08-07 13:59] LABS: Absolute Lymphocyte Count 1.57 X10^3/uL (0.83-4.51); Absolute Neutrophil Count 12.4 X10^3/uL (2.0-7.7); Basophil# 0.05 X10^3/uL; Basophil% 0.3 % (0-1); Eosinophil# 0.01 X10^3/uL; Eosinophils% 0.1 % (0-5); Hematocrit 40.9 % (37-47); Hemoglobin 13.6 g/dL (12.0-15.0); Lymphocyte # 1.57 X10^3/ul (0.83-4.51); Lymphocyte % 10.8 % (19-41); Mean Corp Hgb Conc 33.3 g/dL (32-36); Mean Corpuscular Hgb 30.2 pg (27.0-32.0); Mean Corpuscular Volume 90.7 fL (81-99); Mean Platelet Vol. 9.7 fl (6.2-12.0); Monocyte# 0.41 X10^3/uL; Monocyte% 2.8 % (0-10); NRBC Flagged by Analyzer 0 % (0-5); Neutrophil # 12.43 X10^3/uL (2.7-7.7); Neutrophil % 85.6 % (47-70); Platelet Count 354 K/mm3 (150-450); RBC Distribution Width CV 11.7 % (11.6-14.6); RBC Distribution Width SD 38.8 fl (35.1-43.9); Red Blood Count 4.51 M/mm3 (4.2-5.4); White Blood Count 14.5 K/mm3 (4.4-11.0)
[2023-08-07 14:12] LABS: Anion Gap 4 (5-15); BUN 12 mg/dL (7-18); Calcium,Total 9.3 mg/dL (8.5-10.1); Chloride 110 mmol/L (98-107); Creatinine, Serum 0.75 mg/dL (0.55-1.02); EST Glomerular Filtration Rate 93 mL/min (>60); Est Glom Filt Rate - Afr Amer 113 mL/min (>60); Estimated Creatinine Clearance 118.63 ml/min; Glucose 121 mg/dL (74-106); Potassium 3.3 mmol/L (3.5-5.1); Sodium Level 137 mmol/L (136-145)
[2023-08-07] MEDS: Morphine 4 MG/ML Syringe IV (14:27)
[2023-08-07 15:21] VITALS: BP 102/60; PULSE 64; RESP 18; O2SAT 100
--- NOTE | 2023-08-07 16:16 | US_ITS ---
STUDY: ULTRASOUND OF THE FEMALE PELVIS - COMPLETE REASON FOR EXAM: Female, 32 years old. pelvic mass LMP: TECHNIQUE: Transabdominal TECHNICAL QUALITY: Adequate. COMPARISON: CAT scan August 07, 2023 FINDINGS: Uterus not visualized status post hysterectomy. The right ovary is visualized. The right ovary measures 2.5 x 2 x 1.3 cm. There is no right ovarian cyst or ovarian mass. There is no visualized right adnexal mass or complex lesion. There is normal arterial and normal venous vascularity. The left ovary is visualized. The left ovary measures 9 x 6.3 x 7.4 cm. There is a complex multicystic structure with thick walled septations measuring approximately 7.8 x 5.5 x 7.7 cm. No arterial flow is seen at this time although there is venous return detected. There is moderate amount of fluid in the cul-de-sac bilaterally The pre void volume of the bladder was 3.5 ml. US/Pelvic (Non ) IMPRESSION: Complex multi septated cystic mass thick walled septation without arterial flow at this time and demonstrating fluid in the cul-de-sac suspicious for possible coexisting Clinical correlation recommended Electronically Signed: Leonidas Waller MD at 17:48 EDT ,
[2023-08-07 17:30] VITALS: BP 110/71; PULSE 72; O2SAT 100
[2023-08-07 18:00] VITALS: BP 121/70; O2SAT 100
[2023-08-07] MEDS: Magnesium Citrate 300 ML 150 ML PO (19:37)
[2023-08-07 19:40] VITALS: BP 125/65; PULSE 69; RESP 16; TEMP 36.9; O2SAT 97
== END 2023-08-07 19:41 | disposition home or self-care (01) ==
PROVIDERS: Emergency Provider Emergency Medicine; PCP Family Medicine; Visit Provider Emergency Medicine
DX: R10.31 Right lower quadrant pain (principal); N83.8 Other noninflammatory disorders of ovary, fallopian tube and broad ligament; Z86.16 Personal history of COVID-19
CPT/HCPCS: 74176; 76856; 80048; 85025; 96372; 96374; 96375; 96376; 99283; J7040; A4216; J2405

== ENCOUNTER 2023-08-08 10:56 | Emergency (ER) | payer BC, SELFPAY ==
[2023-08-08 10:57] VITALS: BP 131/74; PULSE 83; RESP 16; TEMP 36.9; O2SAT 100
[2023-08-08] MEDS: 0.9% Normal Saline (1000mL) 1,000 ML 999 ML IV (11:51)
[2023-08-08] MEDS: Metoclopramide 10 MG/2 ML Vial IV (11:51)
[2023-08-08] MEDS: Morphine 4 MG/ML Syringe IV (11:51)
[2023-08-08] MEDS: Ketorolac 15 MG/ML Vial IV (11:51)
--- NOTE | 2023-08-08 11:55 | EX.ED.DYSGE1 ---
HPI <RENNY Akers - Last Filed: 08/08/23 13:19> History of Present Illness Chief Complaint: Abd Pain Narrative Narrative: Patient is a 32-year-old female with history anxiety, depression, significant abdominal surgical history who was seen here yesterday. Patient was seen here yesterday for constipation, abdominal pain. Patient had a significant workup yesterday.Patient had a abdominal CT that showed an 8.5 x 8.7 x 9 cm multi septated left ovarian cystic mass is ovarian neoplasm until proven otherwise. Radiopaque surgical clips below the cecum may represent prior appendectomy. Suspicious tapering focal thickening behind the lateral of the cecum this is a typical for epiploic appendagitis since there are no inflammatory changes. Patient then received a pelvic ultrasound which showed complex multiseptated cystic mass thick-walled septation without arterial flow at this time and demonstrating fluid in the cul-de-sac suspicious for possible coexisting. Patient does have an AUTOMATION ENGINEERING MANAGER that she follows up with. She was made aware of this, and will follow-up outpatient with her AUTOMATION ENGINEERING MANAGER. Patient was sent home with magnesium citrate, as well as muscle relaxer. Patient did not get those medications until today. Patient was unable to get the magnesium citrate down because she is vomiting. Patient dates the reason why she is here today is because the bladder spasms as well as the nausea. Denies any recent fevers or chills, denies any blood in her stool or vomit. [facility] <RENNY Akers - Last Filed: 08/08/23 13:19> [facility] Medical History Psychotic episode COVID History of steroid therapy Marijuana use Anxiety Bladder disease Difficulty swallowing Gastric reflux Chest pain History of irregular heartbeat Chronic neck and back pain Limb weakness Severe headache Fatigue Shoulder pain Home Medications ?Medication ?Instructions ?Recorded ?Last Taken ?Type acetaminophen 500 mg tablet 500 mg PO Q6H PRN Pain 04/02/21 Unknown History ascorbic acid (vitamin C) 1,000 mg 1 cap PO BID 04/02/21 Unknown History capsule,extended release cholecalciferol (vitamin D3) 100 100 mcg PO DAILY 04/02/21 Unknown History mcg (4,000 unit) capsule fish, borage, flaxseed oils-omega 1 cap PO DAILY 04/02/21 Unknown History 3,6,9 comb no.1 1,200 mg capsule (Matlock 3-6-9) loratadine 10 mg tablet (Claritin) 10 mg PO DAILY 04/02/21 Unknown History meloxicam 15 mg tablet 15 mg PO DAILY PRN PRN Pain 04/02/21 Unknown History multivit with 1 tab PO DAILY 04/02/21 Unknown History [id number] 18 mg iron-800 mcg-150 mg tablet (Vitamin D3 Complete) naproxen sodium 220 mg tablet 220 mg PO Q8H PRN PRN Pain 04/02/21 Unknown History (Aleve) omeprazole 20 mg tablet,delayed 20 mg PO DAILY 04/02/21 Unknown History release sumatriptan succinate 100 mg tablet 100 mg PO Q2H PRN Pain 04/02/21 Unknown History tramadol 50 mg tablet 50 mg PO Q6H PRN Pain 04/02/21 Unknown History vitamin A 2,400 mcg capsule 2,400 mcg PO DAILY 04/02/21 Unknown History hyoscyamine sulfate 0.125 mg tablet 0.125 mg PO Q4H PRN abdominal 08/07/23 Unknown Rx discomfort #20 tabs promethazine 25 mg tablet 25 mg PO Q6H PRN PRN Nausea #20 08/07/23 Unknown Rx TABLETS hydrocodone-acetaminophen 5-325mg 1 tab PO Q6H PRN PRN Pain 3 days 08/08/23 Unknown Rx 5mg-325mg #10 TABLETS ondansetron 4 mg disintegrating 4 mg PO Q8H PRN PRN Nausea #10 tabs 08/08/23 Unknown Rx tablet Allergy/AdvReac Type Severity Reaction Status Date / Time dexamethasone Allergy Severe Other Verified 08/08/23 11:01 gabapentin Allergy Other Verified 08/08/23 11:01 nickel Allergy Rash Verified 08/08/23 11:01 Penicillins Allergy Anaphylaxis Verified 08/08/23 11:01 Surgical History History of bilateral salpingectomy History of appendectomy excision of endometriosis History of discectomy Social History Smoking Status: Never smoker alcohol intake: current alcohol intake frequency: a few times a month substance use type: does not use ROS <ALISSA AkersC - Last Filed: 08/08/23 13:19> ROS ED ROS Narrative Constitutional: Negative for fever, chills, weight loss, weakness Eyes: Negative for vision loss, vision change, double vision ENT: Negative for any sore throat, ear pain, congestion Cardiovascular: Negative for any chest pain, tightness, palpitations Respiratory: Negative for any cough, sputum production, hemoptysis, dyspnea, dyspnea on exertion, orthopnea Gastrointestinal: Negative for any diarrhea, constipation, blood in stool, blood in vomit. Positive for abdominal pain, nausea and vomiting : Negative for any urinary frequency, dysuria, retention, blood in urine. Positive bladder spasms Muscle skeletal: Negative for any neck pain, back pain Neurological: Negative for any headache, syncope, dizziness Skin: Negative for any rashes, itching, abrasions, lacerations Psychiatric: Negative for any depression, anxiety, stress, suicidal ideation, homicidal ideation Hematologic: Negative for any excessive bruising, easy bleeding EXAM <RENNY Akers - Last Filed: 08/08/23 13:19> Physical Exam Narrative Exam Narrative: Vital signs reviewed. On my examination, the patient was laying on her right side, patient had multiple of her own pillows. Patient appears to be in no obvious distress. HEET: Head normocephalic atraumatic, TMs clear bilaterally. Posterior pharynx is clear, moist mucous membranes. Nares clear bilaterally. Neck: Supple with no lymphadenopathy or tenderness. No signs of meningismus. Cardiac: Regular rate and rhythm no murmurs gallops or rubs, equal peripheral pulses bilaterally. Respiratory: Lungs clear to auscultation bilaterally. No chest tenderness. Abdomen: Soft, nontender, nondistended. No abdominal bruit or pulsatile masses. No hepatosplenomegaly. Negative for any peritoneal signs. Extremities: No peripheral edema, no signs of gross trauma or deformity. Active full range of motion of all extremities. Neuro: Cranial nerves II through XII intact, no focal neurological deficits. Skin: Clean dry and intact with no rash, purpura, petechiae, vesicles or pustules. Backs/flank: No CVA tenderness, no midline spinal tenderness, no deformity. Psych: Normal mood and affect. No SI, HI or acute psychosis. Const Vital Signs: 08/08/23 10:57 Temperature 98.4 F Temperature Source Temporal Pulse Rate 83 Respiratory Rate 16 Blood Pressure 131/74 H Blood Pressure Mean 93 Pulse Ox 100 Oxygen Delivery Method Room Air Positive well nourished and well developed General Appearance ED: well developed <Dr. Pennie Fontanez DO - Last Filed: 08/11/23 07:19> Physical Exam Const Vital Signs: 08/08/23 10:57 Temperature 98.4 F Temperature Source Temporal Pulse Rate 83 Respiratory Rate 16 Blood Pressure 131/74 H Blood Pressure Mean 93 Pulse Ox 100 Oxygen Delivery Method Room Air MDM <RENNY Akers - Last Filed: 08/08/23 13:19> [facility] Lab Data Labs: Laboratory Results - last 24 hr 08/08/23 08/08/23 11:45 12:00 WBC 14.9 H RBC 4.64 Hgb 14.2 Hct 42.4 MCV 91.4 MCH 30.6 MCHC 33.5 RDW Std Deviation 39.6 RDW Coeff of Luanne 11.8 Plt Count 327 MPV 9.6 Immature Gran % (Auto) 0.400 Neut % (Auto) 79.2 H Lymph % (Auto) 14.7 L [place] % (Auto) 5.4 Eos % (Auto) 0.1 Baso % (Auto) 0.2 Absolute Neuts (auto) 11.8 H Absolute Lymphs (auto) 2.19 Nucleated RBC % 0 Sodium 140 Potassium 3.6 Chloride 107 Carbon Dioxide 27.0 Anion Gap 6 BUN 8 Creatinine 0.85 Est GFR (MDRD) Af Amer 98 Est GFR (MDRD) Non-Af 81 BUN/Creatinine Ratio 9.4 L Glucose 112 H Calcium 9.3 Total Bilirubin 1.40 H AST 16 ALT 21 Alkaline Phosphatase 86 Total Protein 7.9 Albumin 3.9 Globulin 4.0 Albumin/Globulin Ratio 1.0 Lipase 19 Urine Color Straw Urine Clarity Sl. Cloudy Urine pH 8.0 Ur Specific [place] 1.015 Urine Protein Negative Urine Glucose (UA) Normal Urine Ketones Negative Urine Occult Blood 50 H Urine Nitrite Negative Urine Bilirubin Negative Urine Urobilinogen Normal Ur Leukocyte Esterase Negative Urine RBC 0-5 SEEN Urine WBC 0 SEEN Ur Squamous Epith Cells 0-5 SEEN Urine Bacteria 0 SEEN Urine Mucus 0 SEEN Treatment and Re-Evaluation :: Differential diagnosis includes however is not limited to: Acute on chronic abdominal pain, bowel obstruction, bladder spasms, interstitial cystitis Patient appears to be in no obvious distress vital signs are stable, patient appears nontoxic. Presenting to the emergency department with acute on chronic abdominal pain. Patient's symptoms are similar from yesterday. Patient did have multiple scans completed. Patient is aware aware of significant cyst to the left ovary. She is currently going to her AUTOMATION ENGINEERING MANAGER follow-up on this. Today, she states the goal needs to be pain control. Patient will receive IV fluids, Reglan, morphine and Toradol. Patient will be reevaluated. Patient on reevaluation was sleeping, she feels much better. Patient's laboratory values was similar to yesterday, white blood cell count 14.9, patient's chemistries were unremarkable, total bilirubin was slightly elevated at 1.4. Lipase was negative. Urinalysis was negative for any infection. I spoke with the patient, as well as the patient's , they are in agreement that the patient needs to see her AUTOMATION ENGINEERING MANAGER regarding this mass. Patient will also be referred to urology as well as GI. Patient will continue the muscle relaxer however I will write the patient for [place] as well as for some Zofran as well. The patient as well as the are happy with the plan of care, the patient is asymptomatic at this time and is stable for discharge. <Dr. Pennie Fontanez, DO - Last Filed: 08/11/23 07:19> [facility] Narrative Medical decision making narrative: I have personally performed a face to face assessment of the patient and have reviewed the JUNO Note. I performed a substantive portion of the visit including all aspects of the following. My dixon findings include: History is patient is a 32-year-old female with history of bladder spasms, interstitial cystitis, multiple abdominal surgeries and recurrent right lower quadrant abdominal pain. She is presenting for worsening pain. Patient was seen and evaluated last night and ultimately had a CT of the abdomen and pelvis as well as a pelvic ultrasound. She was ultimately diagnosed with constipation as well as a left ovarian mass. She was discharged home with instructions to take magnesium citrate for the constipation as well as a prescription for Levsin and Phenergan. 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 Since being home she is unable to get her pain back under control but attributes it to not be able to fish bait picker her prescriptions. Has had multiple episodes of vomiting. Was brought back in for repeat evaluation symptom control. In the ER on my evaluation patient received dose of morphine and is states she is much more comfortable and resting. She is given Toradol, morphine and Reglan as well as IV fluids. On repeat abdominal exam abdomen is soft and nontender. She is feeling much better. Repeat labs continue to show leukocytosis but otherwise showed no acute pathology. Given that her pain has significantly improved with 1 dose of morphine I suspect given continued improvement of pain low suspicion for ovarian torsion. In addition her ovarian mass is on the left side and her pain is more on the right side. Do not think she requires repeat imaging. Patient is comfortable with outpatient follow-up. Discharged home in improved and stable condition. Other additions or changes: [None] Lab Data Labs: Laboratory Results - last 24 hr 08/08/23 08/08/23 11:45 12:00 WBC 14.9 H RBC 4.64 Hgb 14.2 Hct 42.4 MCV 91.4 MCH 30.6 MCHC 33.5 RDW Std Deviation 39.6 RDW Coeff of Luanne 11.8 Plt Count 327 MPV 9.6 Immature Gran % (Auto) 0.400 Neut % (Auto) 79.2 H Lymph % (Auto) 14.7 L [place] % (Auto) 5.4 Eos % (Auto) 0.1 Baso % (Auto) 0.2 Absolute Neuts (auto) 11.8 H Absolute Lymphs (auto) 2.19 Nucleated RBC % 0 Sodium 140 Potassium 3.6 Chloride 107 Carbon Dioxide 27.0 Anion Gap 6 BUN 8 Creatinine 0.85 Est GFR (MDRD) Af Amer 98 Est GFR (MDRD) Non-Af 81 BUN/Creatinine Ratio 9.4 L Glucose 112 H Calcium 9.3 Total Bilirubin 1.40 H AST 16 ALT 21 Alkaline Phosphatase 86 Total Protein 7.9 Albumin 3.9 Globulin 4.0 Albumin/Globulin Ratio 1.0 Lipase 19 Urine Color Straw Urine Clarity Sl. Cloudy Urine pH 8.0 Ur Specific [place] 1.015 Urine Protein Negative Urine Glucose (UA) Normal Urine Ketones Negative Urine Occult Blood 50 H Urine Nitrite Negative Urine Bilirubin Negative Urine Urobilinogen Normal Ur Leukocyte Esterase Negative Urine RBC 0-5 SEEN Urine WBC 0 SEEN Ur Squamous Epith Cells 0-5 SEEN Urine Bacteria 0 SEEN Urine Mucus 0 SEEN Discharge Plan Triage Chief Complaint: Abd Pain ED Midlevel Provider: Aslanides,Geovanny ED Provider: Pennie Fontanez Dx/Rx/DC Orders Clinical Impression: Abdominal adhesions, Abdominal pain Instructions: ED Abdominal Pain, Adhesions Prescriptions: New hydrocodone-acetaminophen 5-325 mg tablet 1 tab PO Q6H PRN PRN (Reason: Pain) 3 Days Qty: 10 0RF ondansetron 4 mg tablet,disintegrating 4 mg PO Q8H PRN PRN (Reason: Nausea) Qty: 10 0RF No Action vitamin A 2,400 mcg Capsule 2,400 mcg PO DAILY sumatriptan succinate 100 mg Tablet 100 mg PO Q2H PRN (Reason: Pain) meloxicam 15 mg Tablet 15 mg PO DAILY PRN PRN (Reason: Pain) tramadol 50 mg Tablet 50 mg PO Q6H PRN (Reason: Pain) acetaminophen [Tylenol Ex Str Rapid Release] 500 mg Tablet 500 mg PO Q6H PRN (Reason: Pain) naproxen sodium [Aleve] 220 mg Tablet 220 mg PO Q8H PRN PRN (Reason: Pain) Vitamin C 1,000 mg Capsule, Extended Release 1 cap PO BID Vitamin D3 Complete 18 mg iron-800 mcg-150 mg Tablet 1 tab PO DAILY Vitamin D3 100 mcg (4,000 unit) Capsule 100 mcg PO DAILY Matlock 3-6-9 1,200 mg Capsule 1 cap PO DAILY loratadine [Claritin] 10 mg Tablet 10 mg PO DAILY omeprazole 20 mg Tablet,Delayed Release (Dr/Ec) 20 mg PO DAILY promethazine 25 mg tablet 25 mg PO Q6H PRN PRN (Reason: Nausea) Qty: 20 0RF hyoscyamine sulfate 0.125 mg tablet 0.125 mg PO Q4H PRN (Reason: abdominal discomfort) Qty: 20 0RF Primary Care Provider: Elena Cowan Referrals: Esperanza Lopez MD [Med Staff - Active Staff] - Elena Cowan DO [Primary Care Provider] - Chung Potter DO [Med Staff - Active Staff] - Activity Restrictions/Additional Instructions: You are prescribed [place] which is the hydrocodone/acetaminophen, Zofran, referral to friend as well is urology. Return for worsening symptoms. You need to see an AUTOMATION ENGINEERING MANAGER regarding her left ovarian mass. Print Language: [place] Disposition Disposition: Home, Self Care Discharge Date/Time: 08/08/23 13:31
[2023-08-08 12:06] LABS: Bacteria 0 SEEN /hpf (None Seen); Mucous, Urine 0 SEEN /hpf (<or=2+); White Blood Cells 0 SEEN /hpf (0-5)
[2023-08-08 12:08] LABS: AST(SGOT) 16 U/L (15-37); Absolute Lymphocyte Count 2.19 X10^3/uL (0.83-4.51); Absolute Neutrophil Count 11.8 X10^3/uL (2.0-7.7); Alanine Aminotransfer ALT/SGPT 21 U/L (13-56); Albumin, Serum 3.9 g/dL (3.2-5.0); Alkaline Phosphatase 86 U/L (45-117); Anion Gap 6 (5-15); BUN 8 mg/dL (7-18); BUN/Creat Ratio 9.4 RATIO (10-20); Basophil# 0.03 X10^3/uL; Basophil% 0.2 % (0-1); Calcium,Total 9.3 mg/dL (8.5-10.1); Chloride 107 mmol/L (98-107); Creatinine, Serum 0.85 mg/dL (0.55-1.02); EST Glomerular Filtration Rate 81 mL/min (>60); Eosinophil# 0.02 X10^3/uL; Eosinophils% 0.1 % (0-5); Est Glom Filt Rate - Afr Amer 98 mL/min (>60); Glucose 112 mg/dL (74-106); Hematocrit 42.4 % (37-47); Hemoglobin 14.2 g/dL (12.0-15.0); Lipase 19 U/L (13-75); Lymphocyte # 2.19 X10^3/ul (0.83-4.51); Lymphocyte % 14.7 % (19-41); Mean Corp Hgb Conc 33.5 g/dL (32-36); Mean Corpuscular Hgb 30.6 pg (27.0-32.0); Mean Corpuscular Volume 91.4 fL (81-99); Mean Platelet Vol. 9.6 fl (6.2-12.0); Monocyte# 0.81 X10^3/uL; Monocyte% 5.4 % (0-10); NRBC Flagged by Analyzer 0 % (0-5); Neutrophil # 11.76 X10^3/uL (2.7-7.7); Neutrophil % 79.2 % (47-70); Platelet Count 327 K/mm3 (150-450); Potassium 3.6 mmol/L (3.5-5.1); Protein, Total 7.9 g/dL (6.4-8.2); RBC Distribution Width CV 11.8 % (11.6-14.6); RBC Distribution Width SD 39.6 fl (35.1-43.9); Red Blood Count 4.64 M/mm3 (4.2-5.4); Sodium Level 140 mmol/L (136-145); White Blood Count 14.9 K/mm3 (4.4-11.0)
[2023-08-08 12:10] LABS: Color, Urine Straw (Yellow); Glucose, Dipstick Normal (Normal); Ketone-Dipstick Negative (Negative); Leukocyte Esterase-Dipstick Negative /ul (Negative); Nitrite-Dipstick Negative (Negative); Occult Blood-Urine 50 /ul (Negative); Protein-Dipstick Negative (Negative); Specific Gravity, Urine 1.015 (1.002-1.030); Urine Bilirubin Dipstick Negative (Negative); Urine Clarity Sl. Cloudy (Clear); Urine Urobilinogen Normal (Normal)
[2023-08-08 12:24] LABS: Red Blood Cells-Urine 0-5 SEEN /hpf (0-5); Squamous Epithelial Cells - UA 0-5 SEEN /hpf (5-10)
[2023-08-08 13:28] VITALS: BP 114/77; PULSE 89; RESP 16; O2SAT 98
[2023-08-08 13:30] VITALS: BP 114/77; PULSE 89; RESP 16; TEMP 36.4; O2SAT 98
== END 2023-08-08 13:31 | disposition home or self-care (01) ==
PROVIDERS: Nurse Practitioner; Emergency Provider Emergency Medicine; PCP Family Medicine; Visit Provider Emergency Medicine
DX: K66.0 Peritoneal adhesions (postprocedural) (postinfection) (principal); R10.9 Unspecified abdominal pain; Z86.16 Personal history of COVID-19
CPT/HCPCS: 80053; 81001; 83690; 85025; 96374; 96375; 96376; 99283; A4216

== ENCOUNTER → 2023-09-10 | Outpatient (CLI) | payer BC, SELFPAY ==
[2023-09-10 13:09] LABS: Erythrocyte Sedimentation Rate 3 mm/hr (0-30)
[2023-09-10 13:11] LABS: Absolute Lymphocyte Count 2.51 X10^3/uL (0.83-4.51); Absolute Neutrophil Count 3.8 X10^3/uL (2.0-7.7); Basophil# 0.04 X10^3/uL; Basophil% 0.6 % (0-1); Eosinophil# 0.09 X10^3/uL; Eosinophils% 1.3 % (0-5); Hematocrit 39.9 % (37-47); Hemoglobin 12.9 g/dL (12.0-15.0); Lymphocyte # 2.51 X10^3/ul (0.83-4.51); Lymphocyte % 36.5 % (19-41); Mean Corp Hgb Conc 32.3 g/dL (32-36); Mean Corpuscular Hgb 30.1 pg (27.0-32.0); Mean Platelet Vol. 9.6 fl (6.2-12.0); Monocyte# 0.38 X10^3/uL; Monocyte% 5.5 % (0-10); NRBC Flagged by Analyzer 0 % (0-5); Neutrophil # 3.83 X10^3/uL (2.7-7.7); Neutrophil % 55.8 % (47-70); Platelet Count 316 K/mm3 (150-450); RBC Distribution Width CV 12.4 % (11.6-14.6); RBC Distribution Width SD 42.2 fl (35.1-43.9); Red Blood Count 4.29 M/mm3 (4.2-5.4); White Blood Count 6.9 K/mm3 (4.4-11.0)
[2023-09-10 13:28] LABS: CRP < 2.90 mg/L (0.0-3.0)
[2023-09-16 10:09] LABS: Beef <0.10 kU/L (Class 0); Chocolate <0.10 kU/L (Class 0); Codfish <0.10 kU/L (Class 0); Corn <0.10 kU/L (Class 0); Egg, Whole <0.10 kU/L (Class 0); Milk (Cow) <0.10 kU/L (Class 0); Mussels <0.10 kU/L (Class 0); Peanut <0.10 kU/L (Class 0); Pork <0.10 kU/L (Class 0); Salmon <0.10 kU/L (Class 0); Shrimp <0.10 kU/L (Class 0); Soybean <0.10 kU/L (Class 0); Tuna <0.10 kU/L (Class 0); Wheat <0.10 kU/L (Class 0)
[2023-09-16 14:10] LABS: ACCA 5 units (0-90); ALCA 21 units (0-60); AMCA 15 units (0-100); Cytoplasmic Ab (C-ANCA) <1:20 titer (Neg:<1:20); Endomysial Antibody IgA Negative (Negative); Immunoglobulin A 113 mg/dL (87-352); Perinuclear Ab (P-ANCA) <1:20 titer (Neg:<1:20); gASCA 0 units (0-50); t-Transglutaminase IgA <2 U/mL (0-3)
== END | disposition home or self-care (01) ==
LOC: LAB 12:32
PROVIDERS: PCP Family Medicine; Referring Provider Student in an Organized Health Care Education/Training Program; Visit Provider Student in an Organized Health Care Education/Training Program
DX: R10.9 Unspecified abdominal pain (principal)
CPT/HCPCS: 36415; 82784; 83516; 85025; 85652; 86003; 86005; 86036; 86140; 86255; 86256; 86671

== ENCOUNTER → 2023-09-11 | Outpatient (CLI) | payer BC, SELFPAY ==
[2023-09-16 21:07] LABS: Calprotectin, Stool 30 ug/g (0-120)
== END | disposition home or self-care (01) ==
LOC: LABSPEC 10:43
PROVIDERS: PCP Family Medicine; Referring Provider Student in an Organized Health Care Education/Training Program; Visit Provider Student in an Organized Health Care Education/Training Program
DX: K58.9 Irritable bowel syndrome, unspecified (principal)
CPT/HCPCS: 83630; 83993

== ENCOUNTER → 2023-09-15 | Outpatient (CLI) | payer BC, SELFPAY ==
--- NOTE | 2023-09-15 15:21 | NEURO ---
NCS and/or EMG Patient Report Ordering Doctor: Elena Peace DATE OF SERVICE: 09/15/23 Clinical Summary: 32 year old female patient with symptoms of numbness/tingling in the left hand. A left upper extremity EMG/NCS was performed. Nerve Conduction Studies Summary: Nerve conduction studies of the left upper extremity were within normal ranges. Needle Examination Summary: Needle examination of select muscles of the left upper extremity was normal. Impression: This is a normal study. There is no electrodiagnostic evidence of a left cervical radiculopathy or nerve entrapment such as carpal tunnel syndrome or ulnar neuropathy. Multi Select Codes Neurology Neurology Interp Codes: 86455-78 Musc test done w/n test comp (interp) (1) and 33009-87 Nrv cndj test 7-8 studies (interp)
== END | disposition home or self-care (01) ==
LOC: PSN 13:58
PROVIDERS: PCP Family Medicine; Referring Provider Family Medicine; Visit Provider Family Medicine
DX: M79.602 Pain in left arm (principal); M54.12 Radiculopathy, cervical region
CPT/HCPCS: 95886; 95910

== ENCOUNTER → 2023-11-21 | Outpatient (CLI) | payer BC, SELFPAY ==
[2023-11-24 00:07] LABS: Gastrin, Serum 334 pg/mL (0-115)
[2023-11-24 20:07] LABS: Alternaria alternata <0.10 kU/L (Class 0); Ash, White <0.10 kU/L (Class 0); Aspergillus fumigatus <0.10 kU/L (Class 0); Bahia Grass <0.10 kU/L (Class 0); Beef <0.10 kU/L (Class 0); Bermuda Grass <0.10 kU/L (Class 0); Birch <0.10 kU/L (Class 0); Black Walnut <0.10 kU/L (Class 0); Bluegrass, Kentucky <0.10 kU/L (Class 0); Cat Hair/Dander, Standard <0.10 kU/L (Class 0); Cedar, Mountain <0.10 kU/L (Class 0); Chocolate <0.10 kU/L (Class 0); Cladosporium herbarum <0.10 kU/L (Class 0); Cockroach, American <0.10 kU/L (Class 0); Codfish <0.10 kU/L (Class 0); Corn <0.10 kU/L (Class 0); Cottonwood <0.10 kU/L (Class 0); D farinae Mite <0.10 kU/L (Class 0); D pteronyssinus <0.10 kU/L (Class 0); Dog Epithelia <0.10 kU/L (Class 0); Egg, Whole <0.10 kU/L (Class 0); Elm, American White <0.10 kU/L (Class 0); Hazelnut Tree <0.10 kU/L (Class 0); Hickory, White <0.10 kU/L (Class 0); Immunoglobulin E 14 IU/mL (6-495); Johnson Grass <0.10 kU/L (Class 0); Maple/Box Elder <0.10 kU/L (Class 0); Milk (Cow) <0.10 kU/L (Class 0); Mouse Urine <0.10 kU/L (Class 0); Mucor racemosus <0.10 kU/L (Class 0); Mugwort <0.10 kU/L (Class 0); Mulberry, White <0.10 kU/L (Class 0); Mussels <0.10 kU/L (Class 0); Nettle <0.10 kU/L (Class 0); Oak, White <0.10 kU/L (Class 0); Peanut <0.10 kU/L (Class 0); Pecan <0.10 kU/L (Class 0); Penicillium chrysogen <0.10 kU/L (Class 0); Pigweed, Rough <0.10 kU/L (Class 0); Plantain, English <0.10 kU/L (Class 0); Pork <0.10 kU/L (Class 0); Ragweed, Short/Common <0.10 kU/L (Class 0); Russian Thistle <0.10 kU/L (Class 0); Salmon <0.10 kU/L (Class 0); Sheep Sorrel(Dock) <0.10 kU/L (Class 0); Shrimp <0.10 kU/L (Class 0); Soybean <0.10 kU/L (Class 0); Stemphylium herbarum <0.10 kU/L (Class 0); Sweet Gum <0.10 kU/L (Class 0); Sycamore, American <0.10 kU/L (Class 0); Timothy Grass <0.10 kU/L (Class 0); Tuna <0.10 kU/L (Class 0); Wheat <0.10 kU/L (Class 0)
== END | disposition home or self-care (01) ==
LOC: LAB 11:26
PROVIDERS: PCP Family Medicine; Referring Provider Internal Medicine Gastroenterology; Visit Provider Internal Medicine Gastroenterology
DX: K59.00 Constipation, unspecified (principal)
CPT/HCPCS: 36415; 82785; 82941; 84443; 86003; 86005

== ENCOUNTER → 2023-12-04 | Outpatient (CLI) | payer BC, SELFPAY ==
--- NOTE | 2023-12-04 13:36 | RAD_ITS ---
INDICATION: sitz marker EXAMINATION/TECHNIQUE: X-RAY - XR Abdomen 1 View COMPARISON: No relevant prior comparison study available FINDINGS: BOWEL GAS PATTERN: Non-obstructive. No bowel or stomach distention. FREE AIR: Not assessed on a single supine view. ORGANOMEGALY: Not seen. CALCIFICATIONS: Pelvic calcifications likely due to phleboliths. LOWER CHEST: No acute pathology. BONES AND SOFT TISSUES: No acute pathology. RAD/Abdomen Single View IMPRESSION: Non-obstructive bowel gas pattern. Electronically Signed: Jeremy Kim MD at 15:26 EDT ,
== END | disposition home or self-care (01) ==
LOC: RAD 13:33
PROVIDERS: PCP Family Medicine; Referring Provider Internal Medicine Gastroenterology; Visit Provider Internal Medicine Gastroenterology
DX: K59.00 Constipation, unspecified (principal)
CPT/HCPCS: 74018

== ENCOUNTER → 2023-12-06 | Outpatient (CLI) | payer BC, SELFPAY ==
--- NOTE | 2023-12-06 15:46 | RAD_ITS ---
EXAM: XR ABDOMEN, 1 VIEW CLINICAL INDICATION: sitz marker TECHNIQUE: Frontal supine view of the abdomen/pelvis. COMPARISON: 12/04/2023 FINDINGS: LOWER THORAX: No acute pathology. GASTROINTESTINAL TRACT: Unremarkable. Non-obstructive. No bowel or stomach distention. ORGANS: Unremarkable as visualized. No organomegaly. No abnormal calcifications. BONES/JOINTS: No acute pathology. SOFT TISSUES: No acute pathology. VASCULATURE: Right-sided calcified pelvic phlebolith. OTHER FINDINGS: No visualized Sitz markers. RAD/Abdomen Single View IMPRESSION: No visualized Sitz markers. Electronically Signed: Raheem Tenorio MD at 15:42 EDT ,
--- OUTSIDE RECORDS SUMMARY | 2023-12-06 15:47 | XMS RPT_ITS | CCD ---
Author Organization [facility] Care Team Providers Care Medical Scientific Liaison Name Role Phone SONYA, LEONIDAS Admitting Unavailable SONYA, LEONIDAS Attending Unavailable MALYS, ELENA A Primary Care Unavailable SONYA, LEONIDAS Admitting Unavailable SONYA, LEONIDAS Attending Unavailable MALYS, ELENA A Primary Care Unavailable Malys, Elena A Primary Care Provider Malys DO, Elena A Primary Care Provider Malys DO, Elena A Primary Care Provider [phone] Saúlys, Elena A Primary Care Provider MALYS, ELENA A Primary Care Unavailable MARCUS HORNE Referring Unavailable DUNAWAY, JOSE ROBERTO R Admitting Unavailable DUNAWAY, JOSE ROBERTO R Attending Unavailable MALYS, ELENA A Primary Care Unavailable Malys DO, Elena A Primary Care Provider [phone] Malys DO, Elena A Primary Care Provider [phone] La Nena MORGAN, Bernabe Unavailable [phone] GLENYS CORTÉS Referring Unavaila ble MILANAGLENYS Attending Unavaila ble MALYS, ELENA A Primary Care Unavailable GLENYS CORTÉS Attending Unavaila ble MALYS, ELENA A Primary Care Unavailable GLENYS CORTÉS Referring Unavaila ble GLENYS CORTÉS Attending Unavaila ble MALYS, ELENA A Primary Care Unavailable GLENYS CORTÉS Referring Unavaila ble Bassam Bojorquez MD Primary Care Provider SYSTEM, PROVIDER NOT IN Attending Unavaila ble SYSTEM, PROVIDER NOT IN Referring Unavaila ble MALYS, ELENA A Primary Care Unavailable SYSTEM, PROVIDER NOT IN Attending Unavaila ble SYSTEM, PROVIDER NOT IN Referring Unavaila ble MALYS, ELENA A Primary Care Unavailable REUBEN MUHAMMAD Attending Unavailabl e MALYS, ELENA A Primary Care Unavailable JOHN YODRE Admitting Unavailable DORBISH JR., JESSICA MEDEROS Admitting Unavail able DORBISH JR., JESSICA MEDEROS Attending Unavail able MALYS, ELENA A Primary Care Unavailable SOMASUNDARAM, SHIVKAMINI Admitting Unavail able SOMASUNDARAM, SHIVKAMINI Attending Unavail able MALYS, ELENA A Primary Care Unavailable EVITA REYES Referring Unavailable MALYS, ELENA A Primary Care Unavailable MALYS, ELENA A Referring Unavailable MALYS, ELENA A Attending Unavailable MALYS, ELENA A Primary Care Unavailable MALYS, ELENA A Primary Care Unavailable DORBISH JR., JESSICA MEDEROS Referring Unavail able DORBISH JR., JESSICA MEDEROS Attending Unavail able MALYS, ELENA A Primary Care Unavailable SOMASUNDARAM, SHIVKAMINI Attending Unavail able MALYS, ELENA A Primary Care Unavailable SELIN JANG Attending Unavailable EVITA REYES Attending Unavailable MALYS, ELENA A Primary Care Unavailable MALYS, ELENA A Primary Care Unavailable JENNIFER RUSS Attending Unavail able DORBISH JR., JESSICA MEDEROS Attending Unavail able MALYS, ELENA A Primary Care Unavailable MALYS, ELENA A Primary Care Unavailable SOMASUNDARAM, SHIVKAMINI Attending Unavail able MALYS, ELENA A Primary Care Unavailable GLENYS CORTÉS Attending Unavaila ble MALYS, ELENA A Primary Care Unavailable ESMER GUZMAN Attending Unavailable JENNIFER RUSSISE Attending Unavail able MALYS, ELENA A Primary Care Unavailable DORBISH JR., JESSICA MEDEROS Attending Unavail able MALYS, ELENA A Primary Care Unavailable MALYS, ELENA A Referring Unavailable MALYS, ELENA A Admitting Unavailable MALYS, ELENA A Primary Care Unavailable DORBISH JR., JESSICA MEDEROS Attending Unavail able JENNIFER RUSS DANETTE Admitting Unavail able JENNIFER RUSS DANETTE Referring Unavail able MALYS, ELENA A Primary Care Unavailable DELVIN NGUYEN Attending Unavailable Allergies Allergy Classification Reported Allergen(s) Allergy Type Date of Onset Reaction(s) Facility amLODIPine (4 sources) amLODIPine Drug Allergy 04-03-19 22 Shortness Of Breath [facility] Anti-Epileptic Agents (4 sources) gabapentin Drug Allergy 04-02-19 22 Other (See Comments) [facility] Corticosteroids (4 sources) Dexamethasone Drug Allergy 04-09-19 23 Other (See Comments) [facility] DULoxetine (4 sources) DULoxetine Drug Allergy 10-09-19 22 Other (See Comments) [facility] [place] Carbonate (4 sources) [place] Carbonate Drug Allergy 10-09-19 22 Other (See Comments) [facility] nickel (4 sources) nickel Drug Allergy 01-04-20 18 Hives, Rash [facility] Penicillins (antibiotic) (4 sources) Penicillin Drug Allergy 10-19-19 21 Other (See Comments) [facility] risperiDONE (4 sources) risperiDONE Drug Allergy 04-03-19 22 Shortness Of Breath [facility] Serotonin Reuptake Inhibitors (SSRIs) (4 sources) FLUoxetine Drug Allergy 10-09-19 22 Shortness Of Breath [facility] (20 sources) Penicillin; Translations: [PENICILLIN] Drug Allergy 10-19-19 21 Other (See Comments) [facility] (20 sources) amLODIPine; Translations: [AMLODIPINE] Drug Allergy 04-03-19 Shortness Of Breath [facility] (20 sources) gabapentin; Translations: [GABAPENTIN] Drug Allergy 04-02-19 22 Other (See Comments) [employer] Work Phone: (1 source) Penicillins Propensity to adverse reactions to drug 04-18-19 [facility] (20 sources) risperiDONE; Translations: [RISPERIDONE] Drug Allergy 04-03-19 Shortness Of Breath [facility] [employer] Work Phone: (20 sources) DULoxetine; Translations: [DULOXETINE] Drug Allergy 10-09-19 22 Other (See Comments) [facility] (20 sources) FLUoxetine; Translations: [FLUOXETINE] Drug Allergy 10-09-19 Shortness Of Breath [facility] (20 sources) [place] Carbonate; Translations: [LITHIUM CARBONATE] Drug Allergy 10-09-19 Other (See Comments) [facility] (20 sources) nickel; Translations: [NICKEL] Drug Allergy 01-04-20 18 Hives, Rash [facility] (20 sources) Dexamethasone; Translations: [DEXAMETHASONE (PF)] Drug Allergy 04-09-19 23 Other (See Comments) [facility] Medications Current Medications Medication Drug Class(es) Dates Sig (Normalized) Sig (Original) acetaminophen 32 mg/ml oral solution (20 sources) Start: 04-17-2021 acetaminophen (TYLENOL) 160 MG/5ML solution 650 mg Start: 11-09-2019 End: 11-09-2019 take 1 tablet by mouth every eight hours 975 mg, Oral, Every 8 hours, First dose on Fri11/09/19 at 2145 []Do not give within 6 hours of last dose of IV acetaminophen (OFIRMEV). []Give when patient is tolerating Oral Intake. [] Maximum dose of 4 grams in 24 hours. Start: 11-09-2019 End: 11-09-2019 acetaminophen (TYLENOL) tabl et 975 mg End: 11-24-2023 take 1000 mg by mouth every six hours as needed for pain acetaminophen (TYLENOL ORAL) Indications: pain Take 1,000 mg by mouth every 6 (six) hours as needed Reasons: pain. 11/24/2023 Discontinued (Therapy completed) acetaminophen 325 mg / oxyCODONE hydrochloride 5 mg oral tablet (7 sources) Opioid Agonist Start: 10-20-2023 End: 10-25-2023 take 1 tablet by mouth every six hours as needed for pain oxyCODONE-acetaminophen (PERCOCET) 5-325 mg per tablet Indications: Pelvic pain in female Take 1 (one) tablet by mouth every 6 (six) hours as needed (post-operative pain) . 20 tablet 10/20/2023 10/25/2023 Active Start: 04-09-2022 End: 04-14-2022 take 1 tablet by mouth every six hours as needed for pain oxyCODONE-acetaminophen (PERCOCET) 5-325 mg per tablet Indications: Pelvic pain in female Take 1 (one) tablet by mouth every 6 (six) hours as needed (post-operative pain) . 20 tablet 0 04/09/2022 04/14/2022 Active b complex vitamins capsule (5 sources) take 1 capsule by mo uth once daily in the morning b complex vitamins capsule Take 1 (one) capsule by mouth every morning . Active End: 10-20-2023 take 1 capsule by mouth once daily in the morning b complex vitamins capsule Take 1 (one) capsule by mouth every morning . 10/20/2023 Discontinued Bacillus coagulans / Inulin (3 sources) End: 04-09-2022 Bacillus coagulans/inulin (PROBIOTIC WITH PREBIOTIC ORAL) Take by mouth . 0 04/09/2022 Discontinued (Therapy completed) Bacillus coagula ns/inulin (PROBIOTIC WITH PREBIOTIC ORAL) Take by mouth . 0 Active cetirizine hydrochloride 10 mg oral tablet (7 sources) Histamine-1 Receptor Antagonist take 1 tablet by mouth once daily in the evening cetirizine (ZYRTEC) 10 MG tablet Take 1 (one) tablet (10 mg total) by mouth every evening . Active cholecalciferol 0.05 mg oral capsule (20 sources) Vitamin D take 1 capsule by mouth twice daily cholecalciferol, vitamin D3, 1,000 unit tablet Take 1 (one) capsule by mouth 2 (two) times a day . Active End: 10-20-2023 take 2 capsules by mouth twice daily cholecalciferol, vitamin D3, 50 mcg (2,000 unit) cap Take 2 (two) capsules by mouth 2 (two) times a day . 10/20/2023 Discontinued take 2 capsules by [facility] once daily cholecalciferol, vitamin D3, 50 mcg (2,000 unit) cap Take 2 (two) capsules by mouth daily . Active End: 05-01-2023 take 1 tablet by mouth once daily in the evening cholecalciferol, vitamin D3, 5,000 unit Tab tablet Take 1 (one) tablet (5,000 Units total) by mouth every evening . 0 05/01/2023 Discontinued (Stop Taking at Discharge) take 1 capsule by [facility] once daily in the morning cholecalciferol, vitamin D3, 50 mcg (2,000 unit) cap Take 2,000 Units by mouth every morning . 0 Active take 1 capsule by [facility] once daily Cholecalciferol (VITAMIN D3) 50 MCG (2000 UT) CAPS Take 4,000 Units by mouth daily 0 Active cyclobenzaprine hydrochloride 5 mg oral tablet (6 sources) Muscle Relaxant Start: 05-01-2023 End: 05-11-2023 take 1 tablet by mouth three times daily as needed for muscle spasms cyclobenzaprine (FLEXERIL) 5 MG tablet Take 1 (one) tablet (5 mg total) by mouth 3 (three) times a day as needed for muscle spasms . 30 tablet 0 05/01/2023 05/11/2023 Active Start: 04-30-2023 End: 05-01-2023 take 5 mg by mouth three times daily as needed for muscle spasms 5 mg, Oral, 3 times daily PRN, muscle spasms, Starting on Fri04/30/23 at 1202 Start: 07-17-2021 End: 04-09-2022 take 1 tablet by mouth three times daily as needed cyclobenzaprine (FLEXERIL) 10 MG tablet Take 1 (one) tablet (10 mg total) by mouth 3 (three) times a day as needed . 0 07/17/2021 04/09/2022 Discontinued (Therapy completed) docusate sodium 100 mg oral capsule (19 sources) take 3 capsules by m outh once daily in the evening docusate sodium (COLACE) 100 MG capsule Take 3 (three) capsules (300 mg total) by mouth every evening . Active End: 08-12-2023 take 1 capsule by mouth twice daily docusate sodium (COLACE) 100 MG capsule Take 1 (one) capsule (100 mg total) by mouth 2 (two) times a day . 08/12/2023 Discontinued (Patient Discharge) docusate sodium 50 mg / sennosides, chcf 8.6 mg oral tablet (5 sources) Start: 05-01-2023 End: 05-31-2023 senna-docusate (SENNA-S) 8.6 -50 mg Take 2 (two) tablets by mouth as needed for constipation . 120 tablet 0 05/01/2023 05/31/2023 Active Start: 04-30-2023 End: 05-01-2023 take 2 tablets by mouth twice daily 2 tablet, Oral, 2 times daily, First dose on Fri04/30/23 at 2100, [] Hold for loose stools. Do Not Crush or Chew if administering orally due to bitter taste. May be crushed if given via tube. Start: 11-09-2019 End: 11-09-2019 take 1 tablet by mouth twice daily 1 tablet, Oral, 2 times daily, First dose on Fri11/09/19 at 2100 NOT for abdominal surgery patients. Hold for loose stools. Do Not Crush or Chew if administering orally due to bitter taste. May be crushed if given via tube. Start: 11-09-2019 End: 11-09-2019 take 1 tablet by mouth once daily as needed for constipation 2 tablet, Oral, Nightly PRN, constipation, Starting 11/09/19 at 1257 [] Hold for loose stools. Do Not Crush or Chew if administering orally due to bitter taste. May be crushed if given via tube. elagolix 150 mg oral tablet (4 sources) Start: 04-01-2021 take 1 tablet by mouth once daily elagolix (Orilissa) 150 mg Tab Indications: Endometriosis Take 1 (one) tablet (150 mg total) by mouth daily . 30 tablet 2 04/01/2021 Active 21 day ethinyl estradiol 0.112599 mg/hr / etonogestrel 0.005 mg/hr vaginal system (9 sources) Progestin, Estrogen Start: 05-01-2021 End: 05-01-2022 etonogestreL-ethinyl estradioL (NuvaRing) 0.12-0.015 mg/24 hr vaginal ring Insert vaginally and leave in place for 3 consecutive weeks, then remove for 1 week. . 1 each 12 05/01/2021 04/09/2022 Discontinued (Therapy completed) Start: 10-20-2020 End: 03-28-2021 etonogestreL-ethinyl estradi oL (NUVARING) 0.12-0.015 mg/24 hr vaginal ring Insert 1 (one) each into the vagina every 28 days . 1 each 11 10/20/2020 03/28/2021 Discontinued (Alternate therapy) Start: 07-11-2019 etonogestreL-e thinyl estradioL (NUVARING) 0.12-0.015 mg/24 hr vaginal ring Insert into the vagina every 28 days . 0 07/11/2019 Active 273 day ethinyl estradiol 0.169223 mg/hr / segesterone acetate 0.73518 mg/hr vaginal system (8 sources) Estrogen Start: 10-18-2020 segesterone ac -ethin estradioL (Annovera) 0.15-0.013 mg/24 hour Ring Indications: Endometriosis Insert 1 unit marking on U-100 syringe into the vagina every 28 days . 1 each 0 10/18/2020 Active segesterone ac-e thin estradioL (Annovera) 0.15-0.013 mg/24 hour Ring Insert into the vagina every 28 days . 0 Active Segesterone-Ethi nyl Estradiol (ANNOVERA) 0.15-0.013 MG/24HR RING Place vaginally 0 Active hyoscyamine sulfate 0.125 mg oral tablet (6 sources) take 1 tablet by chris th every four hours as needed hyoscyamine (LEVSIN) 0.125 mg tablet Take 1 (one) tablet (0.125 mg total) by mouth every 4 (four) hours as needed for cramping . Active End: 10-20-2023 apply 1 tablet topically four times daily as needed hyoscyamine sulfate 0.125 mg ODT Dissolve 1 (one) tablet (125 mcg total) on top of tongue 4 (four) times a day as needed . 10/20/2023 Discontinued ibuprofen 800 mg oral tablet (11 sources) Nonsteroidal Anti-inflammatory Drug Start: 04-09-2022 End: 04-09-2023 take 1 tablet by mouth every six hours as needed for pain ibuprofen (ADVIL,MOTRIN) 800 MG tablet Indications: Pelvic pain in female Take 1 (one) tablet (800 mg total) by mouth every 6 (six) hours as needed for pain (post-operative pian) . 30 tablet 0 04/09/2022 04/09/2023 Active Start: 04-17-2021 End: 04-20-2021 ibuprofen (ADVIL;MOTRIN) 100 MG/5ML suspension 400 mg Lactobac no.41/Bifidobact no.7 (PROBIOTIC-10 ORAL) (7 sources) take 1 capsule by mouth once daily in the morning Lactobac no.41/Bifidobact no.7 (PROBIOTIC-10 ORAL) Take 1 capsule by mouth every morning . Active Xaih-Bqdvhwc-Cvfkgb Ant-Camph (CBD KINGS EX) (2 sources) Tljz-Ugbyzrc-Cys hyl Ant-Camph (CBD KINGS EX) Apply topically 0 Active meloxicam 15 mg oral tablet (19 sources) Nonsteroidal Anti-inflammatory Drug Start: End: take 1 tablet by mouth once daily as needed meloxicam (MOBIC) 15 MG tablet Take 15 mg by mouth daily as needed . 0 10/05/2019 04/09/2022 Discontinued (Therapy completed) methocarbamol 750 mg oral tablet (10 sources) Muscle Relaxant Start: End: take 1 tablet by mouth three times daily as needed for muscle spasms methocarbamoL (ROBAXIN) 750 MG tablet Indications: Lumbar radiculopathy Take 1 (one) tablet (750 mg total) by mouth 3 (three) times a day as needed for muscle spasms . 90 tablet 1 07/09/2023 09/07/2023 Active Naproxen (2 sources) Nonsteroidal Anti-inflammatory Drug Naproxen Sodium (JESSICA VE PO) Take by mouth 0 Active NONFORMULARY (2 sources) NONFORMULARY CBD 0 Active [place] 3-6-9 Fatty Acids (TR[place]LE [place]-3-6-9 PO) (2 sources) [place] 3-6-9 Fatt y Acids (TRIPLE OMEGA-3-6-9 PO) Take by mouth daily 0 Active omeprazole 40 mg delayed release oral capsule (20 sources) Proton Pump Inhibitor take 1 capsule by mouth once daily in the evening omeprazole (PRILOSEC) 40 MG capsule Take 1 (one) capsule (40 mg total) by mouth every evening . Active take 2 capsules by mouth once da jessica omeprazole (PRILOSEC) 20 MG delayed release capsule Take 40 mg by mouth daily 0 Active pentosan polysulfate 100 mg oral capsule (1 source) Glycosaminoglycan Start: 11-13-2023 take 1 capsule by mouth three times daily before mealtime pentosan polysulfate (Elmiron) 100 mg capsule Indications: Interstitial cystitis Take 1 (one) capsule (100 mg total) by mouth 3 (three) times a day before meals . 90 capsule 3 11/13/2023 Active PSYLLIUM HUSK, ASPARTAME, ORAL (7 sources) take 6 mg by mouth once daily PSYLLIUM HUSK, ASPARTAME, ORAL Take 6 mg by mouth daily in the afternoon . Active 24 hr QUEtiapine 50 mg extended release oral tablet (7 sources) Atypical Antipsychotic End: 11-24-2023 take 12.5 mg by mouth twice daily QUEtiapine (SEROQUEL XR) 50 mg Tb24 Take 12.5 mg by mouth 2 (two) times a day . 11/24/2023 Discontinued (Therapy completed) take 25 mg by mouth once daily Q UEtiapine (SEROQUEL XR) 50 mg Tb24 Take 25 mg by mouth nightly . Active SUMAtriptan 100 mg oral tablet (2 sources) Serotonin-1b and Serotonin-1d Receptor Agonist take 1 tablet by mouth once as needed SUMAtriptan (IMITREX) 100 MG tablet Take 100 mg by mouth once as needed for Migraine 0 Active traMADol hydrochloride 50 mg oral tablet (16 sources) Opioid Agonist Start: 4 End: 4 traMADol (ULTRAM) 50 mg tablet Indications: Post-op pain Take 1 (one) tablet (50 mg total) by mouth every 6 (six) hours as needed for pain (Days supply per fill: 7) . 28 tablet 0 05/01/2023 05/08/2023 Active Start: 11-09-2019 End: 11-09-2019 take 1 tablet by mouth every four hours as needed 50 mg, Oral, Every 4 hours PRN, moderate to severe pain, Starting Fri11/09/19 at 1257 Start: 10-04-2019 End: 10-28-2021 take 1 tablet by mouth every six hours as needed for pain traMADoL (ULTRAM) 50 mg tablet Indications: Pelvic pain Take 1 (one) tablet (50 mg total) by mouth every 6 (six) hours as needed for pain . 20 tablet 0 10/04/2019 10/28/2021 Discontinued UNABLE TO FIND (20 sources) take 500 mg by mouth twice daily UNABLE TO FIND Take 500 mg by mouth 2 (two) times a day Med Name: tumeric, curcumin . Active UNABLE TO FIND M ed Name: tumeric, curcumin . Active UNABLE TO FIND M ed Name: tumeric, curcumin . 0 Active End: 04-25-2023 take 1 tablet by mouth once daily in the evening UNABLE TO FIND Take 1 tablet by mouth every evening Collagen and Biotin combo. . 0 04/25/2023 Discontinued End: 05-01-2023 UNABLE TO FIND Med Name: CDB and THC 7mg Gummies as needed . 0 05/01/2023 Discontinued (Stop Taking at Discharge) take 1 tablet by chris th once daily in the evening UNABLE TO FIND Take 1 tablet by mouth every evening Collagen and Biotin combo. . 0 Active vitamin e 450 mg oral capsule (1 source) End: 04-17-2021 take 2 capsules by mouth once daily vitamin E 1000 units capsule Take 2,000 Units by mouth daily 0 04/17/2021 Discontinued (LIST CLEANUP) Completed/Discontinued Medications Medication Drug Class(es) Dates Sig (Normalized) Sig (Original) ascorbic acid 1000 mg extended release oral tablet (20 sources) Vitamin C Start: 04-02-2021 End: 10-20-2023 take 1 capsule by mouth twice daily ascorbic acid, vitamin C, (VITAMIN C) 1000 MG TbER Take 1 capsule by mouth 2 (two) times a day . 04/02/2021 10/20/2023 Discontinued take 1 tablet by chris th twice daily ascorbic acid, vitamin C, (vitamin C) 1000 MG tablet Take 1 (one) tablet (1,000 mg total) by mouth 2 (two) times a day . Active End: 05-01-2023 take 1 tablet by mouth once daily in the evening ascorbic acid, vitamin C, (VITAMIN C) 1000 MG tablet Take 1 (one) tablet (1,000 mg total) by mouth every evening . 0 05/01/2023 Discontinued (Stop Taking at Discharge) Ascorbic Acid (V ITAMIN C PO) Take by mouth 0 Active calcium chloride 0.0014 meq/ml / potassium chloride 0.004 meq/ml / sodium chloride 0.103 meq/ml / sodium lactate 0.028 meq/ml injectable solution (6 sources) Start: 04-30-2023 End: 05-01-2023 take 125 mL intravenously every hour 125 mL/hr, Intravenous, Continuous, Starting on Fri04/30/23 at 1115, PACU (only) Start: 04-17-2021 lactated ringe rs infusion Start: 11-09-2019 End: 11-09-2019 take 125 mL intravenous route every hour 125 mL/hr, Intravenous, Continuous, Starting Fri11/09/19 at 1345 Start: 11-09-2019 End: 11-09-2019 lactated Ringers infusion ceFAZolin 2000 mg injection (1 source) Cephalosporin Antibacterial Start: 04-30-2023 End: 05-01-2023 take 2000 mg intravenously every eight hours ceFAZolin (ANCEF) IVPB 2 g (premix) celecoxib 200 mg oral capsule (1 source) Nonsteroidal Anti-inflammatory Drug Start: 11-09-2019 End: 11-09-2019 celecoxib (CELEBREX) capsule 400 mg Start: 11-09-2019 End: 11-09-2019 celecoxib (CELEBREX) capsule 400 mg 20 ml fentaNYL 0.05 mg/ml injection (1 source) Opioid Agonist Start: 11-09-2019 End: 11-09-2019 25 mcg, Intravenous, Every 5 min PRN, Pain, Starting Fri11/09/19 at 1039, For 4 doses, PACU (only) [] Do not give more than 100 mcg while in PACU. fentaNYL (SUBLIMAZE) inj syringe 25 mcg (1 source) Start: 04-30-2023 End: 04-30-2023 25 mcg, Intravenous, Every 5 min PRN, moderate to severe pain, Starting on Fri04/30/23 at 1020, For 4 doses, PACU (only), [] Do not give more than 100 mcg while in PACU. fluconazole 200 mg oral tablet (1 source) Azole Antifungal Start: 05-01-2023 End: 05-01-2023 take 200 mg by mouth once daily 200 mg, Oral, Daily, First dose on [place] 05/01/23 at 0900, For 1 dose, CATEGORY D HAZARDOUS DRUG use safe handling precautions. Use reference link to view PPE guidelines. Minimize crushing/splitting only to situations where clinically necessary., Indication: Other: (specify), Indication: H/o yeast infections with Abx FLUoxetine 20 mg oral capsule (1 source) Serotonin Reuptake Inhibitor Start: 08-19-2019 End: 2019 take 1 capsule by mouth at breakfast FLUoxetine (PROZAC) 20 MG capsule TAKE 1 CAPSULE BY MOUTH WITH BREAKFAST 0 08/19/2019 2019 Discontinued gabapentin (8 sources) Anti-epileptic Agent Start: 11-09-2019 End: 11-09-2019 gabapentin (NEURONTIN) capsule 100 mg Start: 11-09-2019 gabapentin (NE URONTIN) capsule 600 mg End: 04-16-2021 take 1 capsule by mouth three times daily gabapentin (NEURONTIN) 100 MG capsule Take 100 mg by mouth 3 times daily. 0 04/16/2021 Discontinued (Therapy completed) End: 04-01-2021 take 1 capsule by mouth three times daily as needed gabapentin (NEURONTIN) 300 MG capsule Take 300 mg by mouth 3 (three) times a day as needed . 0 04/01/2021 Discontinued (Therapy completed) 0.5 ml HYDROmorphone hydrochloride 1 mg/ml prefilled syringe (4 sources) Opioid Agonist Start: 04-30-2023 End: 05-01-2023 take 0.25-0.5 mg intravenously every three hours as needed 0.25-0.5 mg, Intravenous, Every 3 hours PRN, moderate to severe pain, Starting on Fri04/30/23 at 1202, [] Initiate with 0.25 mg IV every 3 hours prn moderate to severe pain. [] For unrelieved pain, may repeat 0.25 mg IV dose within 30 minutes of initial dose. [] If pain is RELIEVED after repeat dose, change to 0.5 mg IV every 3 hours prn moderate to severe pain. [] If pain is UNrelieved after repeat dose, or patient requires dose reduction, call physician. [] May use IV for breakthrough pain or if unable to tolerate oral route. Start: 04-30-2023 End: 04-30-2023 0.5 mg, Intravenous, Every 5 min PRN, Pain, Starting on Fri04/30/23 at 1020, For 6 doses, PACU (only), Give if fentanyl not effective or not ordered. Do not give more than 3 mg total. Start: 11-09-2019 End: 11-09-2019 take 0.25-0.5 mg intravenous route every three hours as needed 0.25-0.5 mg, Intravenous, Every 3 hours PRN, moderate to severe pain, Starting Fri11/09/19 at 1257 [] Initiate with 0.25 mg IV every 3 hours prn moderate to severe pain. [] For unrelieved pain, may repeat 0.25 mg IV dose within 30 minutes of initial dose. [] If pain is RELIEVED after repeat dose, change to 0.5 mg IV every 3 hours prn moderate to severe pain. [] If pain is UNrelieved after repeat dose, or patient requires dose reduction, call physician. [] May use IV for breakthrough pain or if unable to tolerate oral route. Start: 11-09-2019 End: 11-09-2019 0.5 mg, Intravenous, Every 1 0 min PRN, Pain, Starting Fri11/09/19 at 1039, For 6 doses, PACU (only) [] Give if fentanyl not effective or not ordered. [] Do not give more than 3 mg total. hyoscyamine sulfate 0.12 mg / methenamine 81.6 mg / methylene blue 10.8 mg / sodium phosphate, monobasic 40.8 mg oral tablet (3 sources) Oxidation-Reduction Agent Start: 08-12-2023 End: 09-28-2023 take 1 tablet by mouth four times daily methen-sod phos-meth blue-hyos 81.6-40.8-0.12 mg Tab Take 1 tablet by mouth 4 (four) times a day . 120 tablet 1 08/12/2023 09/28/2023 Discontinued ketorolac (TORADOL) injection 30 mg (1 source) Start: 11-09-2019 End: 11-09-2019 take 30 mg intravenous route every six hours ketorolac (TORADOL) injection 30 mg loratadine 10 mg oral tablet (20 sources) Start: 04-30-2023 End: 10-20-2023 take 10 mg by mouth once daily in the evening 10 mg, Oral, Every evening, First dose on Fri04/30/23 at 2100 take 1 capsule by mouth once teddy ly loratadine (CLARITIN) 10 MG capsule Take 10 mg by mouth daily 0 Active naloxone (NARCAN) injection 0.1 mg (2 sources) Start: 04-30-2023 End: 05-01-2023 naloxone (NARCAN) injection 0.1 mg Start: 11-09-2019 End: 11-09-2019 naloxone (NARCAN) injection 0.1 mg norethindrone 0.35 mg oral tablet (8 sources) Start: 10-12-2021 End: 10-12-2022 take 1 tablet by mouth once daily norethindrone (MICRONOR) 0.35 mg tablet Take 1 (one) tablet (0.35 mg total) by mouth daily . 30 tablet 11 10/12/2021 04/09/2022 Discontinued OMEGA 3,6,9 COMBINATION NO.7 ORAL (16 sources) Start: 10-26-2020 End: 05-01-2023 take 1 capsule by mouth once daily in the evening OMEGA 3,6,9 COMBINATION NO.7 ORAL Take 1 capsule by mouth every evening . 0 10/26/2020 05/01/2023 Discontinued (Stop Taking at Discharge) Start: 10-26-2020 take 1 capsule by [facility] once daily in the evening OMEGA 3,6,9 COMBINATION NO.7 ORAL Take 1 capsule by mouth every evening . 0 10/26/2020 Active Start: 10-26-2020 OMEGA 3,6,9 CO MBINATION NO.7 ORAL Take by mouth . 0 10/26/2020 Active omega-3 fatty acids/fish oil (fish oil-omega-3 fatty acids) 300-1,000 mg capsule (19 sources) Start: 12-31-2017 End: 10-20-2023 take 2 capsules by mouth twice daily omega-3 fatty acids/fish oil (fish oil-omega-3 fatty acids) 300-1,000 mg capsule Take 2 (two) capsules by mouth 2 (two) times a day . 12/31/2017 10/20/2023 Discontinued Start: 12-31-2017 take 1 capsule by [facility] three times daily omega-3 fatty acids/fish oil (fish oil-omega-3 fatty acids) 300-1,000 mg capsule Take 1 (one) capsule by mouth 3 (three) times a day . 12/31/2017 Active Start: 12-31-2017 take 1 capsule by [facility] three times daily omega-3 fatty acids/fish oil (fish oil-omega-3 fatty acids) 300-1,000 mg capsule Take 1 (one) capsule by mouth 3 (three) times a day . 0 12/31/2017 Active take 2 capsules by [facility] twice daily omega-3 fatty acids/fish oil (fish oil-omega-3 fatty acids) 300-1,000 mg capsule Take 2 (two) capsules by mouth 2 (two) times a day . Active ondansetron 4 mg disintegrating oral tablet (10 sources) Serotonin-3 Receptor Antagonist Start: 04-30-2023 End: 05-01-2023 take 1 tablet by mouth every six hours as needed for nausea and vomiting 4 mg, Oral, Every 6 hours PRN, nausea, vomiting, Starting on Fri04/30/23 at 1202, Orally disintegrating tablet: Open blister pack and place tablet on the tongue; tablet is formulated to dissolve on the tongue without water; do not split tablet. Formulation requires tablet remain in sealed package until immediately prior to dose being administered. Start: 04-30-2023 End: 04-30-2023 ondansetron (ZOFRAN) injecti on 4 mg Start: 11-09-2019 End: 11-09-2019 4 mg, Intravenous, Every 15 min PRN, nausea, vomiting, Starting Fri11/09/19 at 1039, For 2 doses, PACU (only) Do not give more than 2 doses. Administer first as needed for nausea/vomiting, or as directed by anesthesia ondansetron (ZOFRAN-ODT) disintegrating tablet 4 mg (1 source) Start: 11-09-2019 End: 11-09-2019 take 1 tablet by mouth every six hours as needed ondansetron (ZOFRAN-ODT) disintegrating tablet 4 mg oxyCODONE hydrochloride 5 mg oral tablet (2 sources) Opioid Agonist Start: 04-30-2023 End: 05-01-2023 take 5-10 mg by mouth every four hours as needed 5-10 mg, Oral, Every 4 hours PRN, moderate to severe pain, Starting on Fri04/30/23 at 1202, [] Initiate with 5 mg oral every 4 hours prn moderate to severe pain. [] For unrelieved pain, may repeat 5 mg oral dose within 60 minutes of initial dose. [] If pain is RELIEVED after repeat dose, change to 10 mg oral every 4 hours prn moderate to severe pain. [] If pain is UNrelieved after repeat dose, or patient requires dose reduction, call physician. Start: 11-09-2019 End: 11-09-2019 take 5-10 mg by mouth every four hours as needed 5-10 mg, Oral, Every 4 hours PRN, moderate to severe pain, Starting Fri11/09/19 at 1257 [] Initiate with 5 mg oral every 4 hours prn severe pain. [] For unrelieved pain, may repeat 5 mg oral dose within 60 minutes of initial dose. [] If pain is RELIEVED after repeat dose, change to 10 mg oral every 4 hours prn moderate to severe pain. [] If pain is UNrelieved after repeat dose, or patient requires dose reduction, call physician. pantoprazole 40 mg delayed release oral tablet (1 source) Proton Pump Inhibitor Start: 04-30-2023 End: 05-01-2023 take 40 mg by mouth once daily 40 mg, Oral, Daily, First dose on Fri04/30/23 at 1430, DO NOT CRUSH OR CHEW. psyllium 3400 mg powder for oral suspension (20 sources) Start: 04-30-2023 End: 05-01-2023 1 packet, Oral, Every evening, First dose on Fri04/30/23 at 2100 200 ml ropivacaine hydrochloride 2 mg/ml injection (1 source) Amide Local Anesthetic Start: 11-09-2019 End: 11-09-2019 750 mL, Infiltration, Continuous, Starting Fri11/09/19 at 1345 Select the type of pump being used: Dual dial-a-flow pump Rate for LEFT catheter: 5 mL/hr Rate for RIGHT catheter: 5 mL/hr 72 hr scopolamine 0.0139 mg/hr transdermal system (1 source) Anticholinergic Start: 11-09-2019 End: 11-09-2019 scopolamine (TRANSDERM-SCOP) 1 mg over 3 days patch 1 patch 1000 ml sodium chloride 9 mg/ml injection (5 sources) Start: 04-30-2023 End: 04-30-2023 sodium chloride 0.9% (NS) Start: 04-17-2021 0.9 % sodium c hloride infusion Start: 04-17-2021 sodium chlorid e flush 0.9 % injection 10 mL Start: 11-09-2019 End: 11-09-2019 sodium chloride (PF) (NS) fl ush 5 mL traZODone hydrochloride 50 mg oral tablet (19 sources) Serotonin Reuptake Inhibitor Start: 04-30-2023 End: 06-05-2023 take 50 mg by mouth once daily 50 mg, Oral, Nightly, First dose on Fri04/30/23 at 2100 vitamin a 85127 unt oral capsule (10 sources) Vitamin A End: 10-28-2021 take 1 capsule by mouth once daily vitamin A 00333 UNIT capsule Take 10,000 Units by mouth daily . 0 10/28/2021 Discontinued Vitamin A 2400 M CG (8000 UT) CAPS Take 2,400 Units by mouth daily 0 Active Vitamin B Complex (20 sources) End: 05-01-2023 take 1 tablet by mouth once daily in the morning b complex vitamins tablet Take 1 (one) tablet by mouth every morning . 0 05/01/2023 Discontinued (Stop Taking at Discharge) take 1 tablet by chris th once daily in the morning b complex vitamins tablet Take 1 (one) tablet by mouth every morning . 0 Active take 1 tablet by mouth once rosy y b complex vitamins tablet Take 1 tablet by mouth daily . 0 Active Problems Active Problems Problem Classification Problem Date Documented Da te Episodic/Chronic Abdominal pain (5 sources) Pain in female pelvis; Translations: [Pelvic and perineal pain] Episodic Acute and chronic tonsillitis (20 sources) Chronic tonsillitis; Translations: [Chronic tonsillitis] Onset: 04-17-2021 Resolved: 08-12-2023 Chronic Anxiety disorders (6 sources) Mixed anxiety and depressive disorder; Translations: [Anxiety disorder, unspecified] Onset: 10-20-2023 10-20-2023 Chronic Complications of surgical procedures or medical care (6 sources) Complication of anesthesia; Translations: [Other complications of anesthesia, initial encounter] Onset: 10-20-2023 10-20-2023 Episodic Endometriosis (20 sources) Endometriosis (clinical); Translations: [Endometriosis, unspecified] Onset: 09-13-2019 11-09-2019 Chronic Endometriosis (2 sources) Endometriosis; Translations: [Deep endometriosis of ovary, unspecified ovary] Onset: 09-24-2023 Esophageal disorders (20 sources) Gastro-esophageal reflux disease without esophagitis; Translations: [Gastroesophageal reflux disease without esophagitis] Onset: 05-07-2018 07-09-2021 Chronic Mood disorders (20 sources) Depressive disorder; Translations: [Depressive disorder] Onset: 05-07-2018 07-09-2021 Chronic Mood disorders (3 sources) Major depressive disorder, single episode, unspecified; Translations: [Mood disorders] Onset: 05-07-2018 Other aftercare (1 source) Other longterm (current) drug therapy; Translations: [[facility]IOR CARE CURRENT DRUG THERAPY] Onset: 05-07-2018 Episodic Other aftercare (1 source) Surgical follow-up; Translations: [Encounter for follow-up examination after completed treatment for conditions other than malignant neoplasm] Episodic Other circulatory disease (5 sources) Elevated blood-pressure reading without diagnosis of hypertension; Translations: [Elevated blood-pressure reading, without diagnosis of hypertension] Episodic Other connective tissue disease (1 source) Pain in right hand; Translations: [Pain in right hand] 02-21-2021 Episodic Other connective tissue disease (2 sources) Pain in left arm; Translations: [Pain in left arm] Onset: 11-18-2023 Episodic Other gastrointestinal disorders (1 source) Constipation; Translations: [Constipation, unspecified] 06-05-2023 Episodic Other nervous system disorders (2 sources) Brachial plexus disorders; Translations: [Brachial plexus disorders] Onset: 11-18-2023 Chronic Other nervous system disorders (1 source) Postoperative pain ; Translations: [Other acute postprocedural pain] 05-01-2023 Episodic Other nervous system disorders (2 sources) Anesthesia of skin; Translations: [Anesthesia of skin] Onset: 11-18-2023 Episodic Other non-traumatic joint disorders (3 sources) Hip pain; Translations: [Pain in left hip] 07-09-2023 Episodic Residual codes; unclassified (5 sources) History of lumbar laminectomy; Translations: [Other specified postprocedural states] Episodic Residual codes; unclassified (1 source) Postoperative state; Translations: [Other specified postprocedural states] 11-13-2023 Episodic Residual codes; unclassified (2 sources) Other specified postprocedural states; Translations: [Other specified postprocedural states] Onset: 11-13-2023 Episodic Spondylosis; intervertebral disc disorders; other back problems (20 sources) Other intervertebral disc displacement, lumbar region; Translations: [Spondylosis without myelopathy or radiculopathy, lumbar region] Onset: 05-07-2018 09-20-2019 Chronic Spondylosis; intervertebral disc disorders; other back problems (3 sources) Spinal stenosis, lumbar region with neurogenic claudication; Translations: [SPINAL STENOSIS LUMBAR REGION NC] Onset: 04-28-2018 Unclassified (1 source) Low back pain, unspecified; Translations: [Low back pain, unspecified] Onset: 11-24-2023 Unclassified (2 sources) Pre-op Exam Onset: 10-20-2023 Urinary tract infections (20 sources) Chronic interstitial cystitis; Translations: [Interstitial cystitis (chronic) without hematuria] Onset: 11-09-2019 11-09-2019 Chronic Past or Other Problems Problem Classification Problem Date Documented Date Episodic/Chronic Fluid and electrolyte disorders (20 sources) Hypokalemia; Translations: [Hypokalemia] Onset: 07-09-2021 Resolved: 08-12-2023 07-09-2021 Episodic Other connective tissue disease (20 sources) Synovial cyst of wrist; Translations: [Other bursal cyst, unspecified wrist] Onset: 07-09-2021 07-09-2021 Episodic Other nervous system disorders (2 sources) Other acute postprocedural pain; Translations: [Other acute postprocedural pain] Onset: 04-30-2023 Episodic Other non-traumatic joint disorders (4 sources) Pain in left hip; Translations: [Pain in left hip] Onset: 07-09-2023 Episodic Ovarian cyst (7 sources) Cyst of ovary; Translations: [Unspecified ovarian cyst, unspecified side] Onset: 08-12-2023 Episodic Residual codes; unclassified (20 sources) Delirium; Translations: [Disorientation, unspecified] Onset: 07-09-2021 Resolved: 08-12-2023 07-09-2021 Episodic Spondylosis; intervertebral disc disorders; other back problems (20 sources) Lumbar radiculopathy; Translations: [Radiculopathy, lumbar region] Onset: 04-11-2023 02-25-2023 Episodic Unclassified (1 source) Low back pain, unspecified; Translations: [Low back pain, unspecified] Onset: 11-24-2023 Results Test Name Value Interpretation Reference Range Facility XR LUMBAR SPINE FLEX / EXT 2 -3 VIEWSon 11-24-2023 XR LUMBAR SPINE FLEX / EXT 2-3 VIEWS EXAMINATION: XR LUMBAR SPINE FLEX / EXT 2-3 VIEWS 11/24/2023 9:13 AM HISTORY: ORDERING SYSTEM PROVIDED HISTORY: lumbar pain, TECHNOLOGIST PROVIDED HISTORY: Illness/Other Reason for exam: lower back pain Cancer History: n Surgery, RadiationHistory: n Encounter Type: Subsequent/Follow-up Additional signs and symptoms: . ORDERING SYSTEM PROVIDED DIAGNOSIS CODES: M54.50 Lumbar pain COMPARISON: No prior lumbar spine series. TECHNIQUE: Three views of the lumbar spine in standing lateral neutral, flexion and extension. FINDINGS: There is no abnormal motion with lateral flexion or extension. There is severe L4-5 disc space narrowing with endplate sclerosis and small endplate osteophytes. Remaining disc spaces are generally maintained in height. No acute compression fracture. IMPRESSION: 1. No abnormal motion with lateral flexion or extension. 2. Degenerative disc changes at L4-5. [facility] Workstation ID: [id number] Dictated by: LEONIDAS PHAN on FriNov 25, 2023 9:49:55 AM EDT Transcribed by: SHREE FRASER on FriNov 25, 2023 10:20:05 AM EDT Finalized by: LEONIDAS PHAN on FriNov 25, 2023 10:58:09 AM EDT Normal [facility] Comment on above: Order Comment: Injur y/Trauma or Illness?:Illness/Other How long have you had these symptoms (acute/chronic)?:Chronic Reason for exam?:lower back pain History of cancer?:n Surgeries, chemotherapy, or radiation?:n Type of Exam?:Subsequent/Follow-up Additional signs and symptoms?:. CT SOFT TISSUE NECK WITH AND WITHOUT CONTRASTon 11-18-2023 CT SOFT TISSUE NECK WITH AND WITHOUT CONTRAST EXAMINATION: CT SOFT TISSUE NECK WITH AND WITHOUT CONTRAST HISTORY: ORDERING SYSTEM PROVIDED HISTORY: Left arm pain, TECHNOLOGIST PROVIDED HISTORY: Illness/Other Reason for exam: left arm pain and numbness off and on, neck pain, eval for brachial plexus lesions and thoracic outlet syndome. Office refused to change order to anything other than what is ordered specifically wanted soft tissue neck without and with contrast Encounter Type: Initial Additional signs and symptoms: n/a ORDERING SYSTEM PROVIDED DIAGNOSIS CODES: M79.602 Left arm pain R20.0 Arm numbness left G54.0 Brachial plexus lesions COMPARISON: None. TECHNIQUE: Dose reduction techniques were achieved by using automated exposure control and/or adjustment of mA and/or kV according to patient size and/or use of iterative reconstruction technique. Pre and postcontrast axial CT images obtained through the neck. Reconstructions obtained in the sagittal and coronal planes. CONTRAST: IOPAMIDOL 370 MG IODINE/ML (76 %) INTRAVENOUS SOLUTION - 75 mL, FINDINGS: The visualized intracranial contents are unremarkable. The paranasal sinuses are clear. Middle ear cavity and mastoid air cells are clear. Skull base intact. Orbital contents are normal. Lock[employer]ch Front Edge Tape Sewer spaces are normal. Parotid glands are normal. Submandibular glands are normal. The tongue and floor of the mouth are normal. Nasopharynx, oropharynx and retropharyngeal space are normal. Epiglottis is normal. Vocal cords are symmetric. No laryngeal mass. No laryngeal edema. Thyroid gland normal. Trachea and visualized portion of the esophagus normal. The carotid arteries are normal bilaterally. Internal jugular veins are patent. Vertebral arteries appear to be patent. No lymphadenopathy in the neck. No neck mass. No supraclavicular lesion. No axillary lesions. No mass or lymphadenopathy along the course of the brachial plexus bilaterally. There is moderate degenerative disc disease at C3-4 and C6-7. No CT evidence of significant spinal canal stenosis. No suspicious osseous lesions. IMPRESSION: 1. No neck masses or lymphadenopathy in the neck. 2. No masses or lymphadenopathy in the left supraclavicular region or left axilla. No lesions identified along the course of the left brachial plexus. [facility] Workstation ID: [id number] Dictated by: ARLIN BARROSO on FriNov 19, 2023 11:06:11 AM EDT Transcribed by: LESVIA PEDRAZA on FriNov 19, 2023 11:29:45 AM EDT Finalized by: ARLIN BARROSO on FriNov 19, 2023 9:15:01 PM EDT [facility] Comment on above: Order Comment: PT/FA X Injury/Trauma or Illness?:Illness/Other How long have you had these symptoms (acute/chronic)?:Acute Reason for exam?:left arm pain and numbness off and on, neck pain, eval for brachial plexus lesions and thoracic outlet syndome. Office refused to change order to anything other than what is ordered specifically wanted soft tissue neck without and with contrast Type of Exam?:Initial Additional signs and symptoms?:n/a Bacteria identified Aer cx N om (Unsp spec)Ordered By: Nicole Cleary on 11-14-2023 [facility] Urine Aerobic CultureOrdered By: Nicole Cleary on 11-14-2023 Bacteria identified Aer cx Nom (Unsp spec) No Growth (<1,000 CFU/mL) [facility] URINALYSISon 11-13-2023 BACTERIA, URINE None Seen Normal None Seen [facility] Comment on above: Order Comment: Micro scopic examination is performed on all urinalysis samples and only positive findings are reported. The test for blood on the chemical analytic portion of urinalysis may also be positive due to hemoglobinuria and myoglobinuria and if red blood cells are present they are quantified by microscopic examination. Performed By: #### [id number] #### [facility] [address] [place] [address] Nhan Cortez M.D. [id number] BILIRUBIN, URINE Negative Normal Negative [facility] Comment on above: Order Comment: Micro scopic examination is performed on all urinalysis samples and only positive findings are reported. The test for blood on the chemical analytic portion of urinalysis may also be positive due to hemoglobinuria and myoglobinuria and if red blood cells are present they are quantified by microscopic examination. Performed By: #### [id number] #### [facility] [address] [place] [id number] Nhan Cortez M.D. [id number] BLOOD, URINE Negative Normal Negative [facility] Comment on above: Order Comment: Micro scopic examination is performed on all urinalysis samples and only positive findings are reported. The test for blood on the chemical analytic portion of urinalysis may also be positive due to hemoglobinuria and myoglobinuria and if red blood cells are present they are quantified by microscopic examination. Performed By: #### [id number] #### [place] [address] Nhan Cortez M.D. [id number] Clarity (U) Clear Normal Clear [facility] Comment on above: Order Comment: Micro scopic examination is performed on all urinalysis samples and only positive findings are reported. The test for blood on the chemical analytic portion of urinalysis may also be positive due to hemoglobinuria and myoglobinuria and if red blood cells are present they are quantified by microscopic examination. Performed By: #### [id number] #### [facility] [address] [place] [id number] Nhan Cortez M.D. [id number] Color (U) Yellow Normal Colorless, Yellow [facility] Comment on above: Order Comment: Micro scopic examination is performed on all urinalysis samples and only positive findings are reported. The test for blood on the chemical analytic portion of urinalysis may also be positive due to hemoglobinuria and myoglobinuria and if red blood cells are present they are quantified by microscopic examination. Performed By: #### [id number] #### [facility] [address] [place] [id number] Nhan Cortez M.D. [id number] Glucose Ql (U) Negative Normal Negative [facility] Comment on above: Order Comment: Micro scopic examination is performed on all urinalysis samples and only positive findings are reported. The test for blood on the chemical analytic portion of urinalysis may also be positive due to hemoglobinuria and myoglobinuria and if red blood cells are present they are quantified by microscopic examination. Performed By: #### [id number] #### [facility] [address] [place] [id number] Nhan Cortez M.D. [id number] Hyaline casts LM Ql (Urine sed) 0-2 Normal 0-2 [facility] Comment on above: Order Comment: Micro scopic examination is performed on all urinalysis samples and only positive findings are reported. The test for blood on the chemical analytic portion of urinalysis may also be positive due to hemoglobinuria and myoglobinuria and if red blood cells are present they are quantified by microscopic examination. Performed By: #### [id number] #### [facility] [address] [place] [id number] Nhan Cortez M.D. [id number] Ketones Ql (U) Negative Normal Negative [facility] Comment on above: Order Comment: Micro scopic examination is performed on all urinalysis samples and only positive findings are reported. The test for blood on the chemical analytic portion of urinalysis may also be positive due to hemoglobinuria and myoglobinuria and if red blood cells are present they are quantified by microscopic examination. Performed By: #### [id number] #### [facility] [address] [place] [id number] Nhan Cortez M.D. [id number] Leukocyte esterase Test strip Ql (U) Negative Normal Negative [facility] Comment on above: Order Comment: Micro scopic examination is performed on all urinalysis samples and only positive findings are reported. The test for blood on the chemical analytic portion of urinalysis may also be positive due to hemoglobinuria and myoglobinuria and if red blood cells are present they are quantified by microscopic examination. Performed By: #### [id number] #### [facility] [address] [place] [id number] Nhan Cortez M.D. [id number] MUCUS, URINE Rare Normal None Seen, Rare [facility] Comment on above: Order Comment: Micro scopic examination is performed on all urinalysis samples and only positive findings are reported. The test for blood on the chemical analytic portion of urinalysis may also be positive due to hemoglobinuria and myoglobinuria and if red blood cells are present they are quantified by microscopic examination. Performed By: #### [id number] #### [address] [address] Nhan Cortez M.D. [id number] NITRITE, URINE Negative Normal Negative [facility] Comment on above: Order Comment: Micro scopic examination is performed on all urinalysis samples and only positive findings are reported. The test for blood on the chemical analytic portion of urinalysis may also be positive due to hemoglobinuria and myoglobinuria and if red blood cells are present they are quantified by microscopic examination. Performed By: #### [id number] #### [facility] [address] [place] [id number] Nhan Cortez M.D. [id number] pH (U) 5.0 [pH] Normal 5.0-7.0 [facility] Comment on above: Order Comment: Micro scopic examination is performed on all urinalysis samples and only positive findings are reported. The test for blood on the chemical analytic portion of urinalysis may also be positive due to hemoglobinuria and myoglobinuria and if red blood cells are present they are quantified by microscopic examination. Performed By: #### [id number] #### [facility] [address] [place] [id number] Nhan Cortez M.D. [id number] PROTEIN, URINE Negative Normal Negative [facility] Comment on above: Order Comment: Micro scopic examination is performed on all urinalysis samples and only positive findings are reported. The test for blood on the chemical analytic portion of urinalysis may also be positive due to hemoglobinuria and myoglobinuria and if red blood cells are present they are quantified by microscopic examination. Performed By: #### 4 [id number] #### [facility] [address] [place] [address] [id number] Nhan Cortez M.D. [id number] Specific gravity (U) [Rel density] 1.013 Normal 1.005-1.025 [facility] Comment on above: Order Comment: Micro scopic examination is performed on all urinalysis samples and only positive findings are reported. The test for blood on the chemical analytic portion of urinalysis may also be positive due to hemoglobinuria and myoglobinuria and if red blood cells are present they are quantified by microscopic examination. Performed By: #### 4 [id number] #### [place] [id number] Nhan Cortez M.D. [id number] SQUAMOUS EPITHELIAL 1 /hpf Normal 0-4 [facility] Comment on above: Order Comment: Micro scopic examination is performed on all urinalysis samples and only positive findings are reported. The test for blood on the chemical analytic portion of urinalysis may also be positive due to hemoglobinuria and myoglobinuria and if red blood cells are present they are quantified by microscopic examination. Performed By: #### 4 [id number] #### [facility] [address] [place] [address] [id number] Nhan Cortez M.D. [id number] UROBILINOGEN, URINE <2.0 Normal <2.0 [facility] Comment on above: Order Comment: Micro scopic examination is performed on all urinalysis samples and only positive findings are reported. The test for blood on the chemical analytic portion of urinalysis may also be positive due to hemoglobinuria and myoglobinuria and if red blood cells are present they are quantified by microscopic examination. Performed By: #### 4 [id number] #### [facility] [address] [place], [place] [id number] Nhan Cortez M.D. [id number] WBC, URINE < Normal 0-5 [facility] Comment on above: Order Comment: Micro scopic examination is performed on all urinalysis samples and only positive findings are reported. The test for blood on the chemical analytic portion of urinalysis may also be positive due to hemoglobinuria and myoglobinuria and if red blood cells are present they are quantified by microscopic examination. Performed By: #### 4 [id number] #### [facility] [address] [place] [address] 46268 Nhan Cortez M.D. [id number] URINE AEROBIC CULTUREon URINE AEROBIC CULTURE URINE CULTURE No Growth (<1,000 CFU/mL) Normal [facility] Comment on above: Performed By: #### 4 [id number] #### [facility] [address] [place] [address] 09351 Nhan Cortez M.D. [id number] UrinalysisOrdered By: Yisel Martin on 11-13-2023 Bacteria Auto Ql (U) None Seen None Se en /hpf [facility] Bilirubin Ql (U) Negative Negative [facility] th Clarity Refractometry automated (U) Clear Clear [facility] Color (U) Yellow Colorless, Yellow [facility] Epithelial cells.squamous Auto (Urine sed) [#/Area] 1 [facility] Glucose Auto test strip (U) [Mass/Vol] Negative Negative mg/dL [facility] Hemoglobin Auto test strip Ql (U) Negative Negative [facility] Hyaline casts Auto (Urine sed) [#/Area] 0-2 [facility] Interpretation and review of laboratory results Normal [facility] Ketones (U) [Mass/Vol] Negative Negat larisa mg/dL [facility] Leukocyte esterase Auto test strip Ql (U) Negative [facility] Mucus Auto (Urine sed) [#/Area] Rare None Seen, Rare /lpf [facility] Nitrite Auto test strip Ql (U) Negative Negative [facility] pH (U) 5.0 [pH] 5.0 - 7.0 [facility] Protein (U) [Mass/Vol] Negative Negat larisa mg/dL [facility] Specific gravity (U) [Rel density] 1.013 1.005 - 1.025 [facility] Urobilinogen (U) [Mass/Vol] mg/dL NINF - 2.0 mg/dL [facility] WBC Auto (Urine sed) [#/Area] [facility] Microscopic examination is performed on all urinalysis samples and only positive findings are reported. The test for blood on the chemical analytic portion of urinalysis may also be positive due to hemoglobinuria and myoglobinuria and if red blood cells are present they are quantified by microscopic examination. [facility] OP NOTEon 10-29-2023 OP NOTE Operative Note DATE: 10/29/2023 TIME: 9:58 AM PREOPERATIVE DIAGNOSIS: Endometriosis determined by laparoscopy [N80.9], Interstitial cystitis [N30.10], Endometrioma of ovary [N80.129] POSTOPERATIVE DIAGNOSIS: Post-Op Diagnosis Codes: * Endometriosis determined by laparoscopy [N80.9] * Ovarian torsion [N83.519] * Interstitial cystitis [N30.10] * Postoperative female pelvic peritoneal adhesions [N99.4, N73.6] PROCEDURE(S) PERFORMED: Procedure(s): ROBOTIC ASSISTED LAPAROSCOPIC EXCISION OF ENDOMETRIOSIS, LEFT OVARIAN CYSTECTOMY, RIGHT OOPHORECTOMY, RIGHT PARTIAL URETEROLYSIS, EXTENSIVE LYSIS OF ADHESIONS, CYSTOSCOPY INDICATIONS: Caroline Guillen is a 33 y.o. female who presents for surgical evaluation and treatment of Endometriosis determined by laparoscopy [N80.9], Interstitial cystitis [N30.10], Endometrioma of ovary [N80.129] that has been unresponsive to medical management. Risks of surgery reviewed in great detail, risks of bleeding, infection, injury to surrounding organs, bowel, bladder, ureters, risks of anesthesia and blood clots discussed. All questions were answered and consent was obtained. FINDINGS: Normal external female genitalia. Normal-appearing upper abdomen, diaphragm, liver, gallbladder and stomach. Extensive abdominal post operative adhesive disease. Right ovarian torsion with necrotic right ovary adherend to multiple loops of small bowel and right ovarian fossa. Functional left ovarian cyst. SURGEON: Bernabe Rouse MD FIELD SERVICE ANALYST: Kassidy Mensah CNP No qualified Resident was available to bedside assist in the case therefore due to the complexity, Kassidy Mensah CNP was utilized as my first dyer. OR STAFF: Health Specialist Relief: Farnaz Simon RN Health Specialist Orientee: Esther Hoff RN Health Specialist Preceptor: Esther Elaine RN Manager Surgical: Darlene Gutierrez Scrub Person Preceptor: Kelley Stein ST Scrub Person Orientee: Frieda Solorzano ST Float: Ines Blackburn RN; Belinda Sutton, YODIT Assist: Kassidy Mensah CNP ANESTHESIA STAFF: Anesthesiologist: Regina Clarke MD SPECIMEN(S): ID Type Source Tests Collected by Time Destination A : Tissue Ovary, Right TISSUE EXAM Bernabe Rouse MD 10/29/202338 B : Small Bowel Endo Tissue Pelvis TISSUE EXAM Bernabe Rouse MD 10/29/202344 IMPLANTS: Implant Name Type Inv. Item Serial No. Retail Manager In Training Lot No. LRB No. Used Action BARRIER 5 X 6IN ADHESION TC 7 INTERCEED - [id number] BARRIER 5 X 6IN ADHESION TC 7 INTERCEED ETHICON [id number] N/A 1 Implanted CATH 5IN EXPANSION ON-Q SILVERSOAKER - [id number] Catheter - Implant CATH 5IN EXPANSION ON-Q SILVERSOAKER [employer] [id number] N/A 1 Implanted CATH 5IN EXPANSION ON-Q SILVERSOAKER - [id number] Catheter - Implant CATH 5IN EXPANSION ON-Q SILVERSOAKER [employer] [id number] N/A 1 Implanted PUMP 600ML DUAL ON-Q [id number] - [id number] PUMP 600ML DUAL ON-Q [id number] [employer] [id number] N/A 1 Implanted HEMOSTAT 3G POWDER ABSORBABLE SURGICEL - [id number] HEMOSTAT 3G POWDER ABSORBABLE SURGICEL ETHICON [id number] N/A 1 Implanted ESTIMATED BLOOD LOSS: 50 mL UOP: 700 mL TYPE OF ANESTHESIA USED: General INTRA AND IMMEDIATE POST-OP COMPLICATIONS: None PROCEDURE: After the risks, benefits, indications and alternatives of the procedure were discussed with the patient and informed consent was obtained, the patient was taken to the OR with IV running. She was placed in the dorsal lithotomy position and she was secured to the OR table with [place] Pad. She was tested in extreme Trendelenburg prior to initiation of the procedure. She was then prepped vaginally with undiluted Hibiclens and abdominally with Chloro-prep. After the appropriate 3 minute wait time, she was draped in the usual sterile fashion for a robotic-assisted procedure. An intra-operative time out was undertaken, the operative room staff was apprised of the upcoming procedure and a common mental model was achieved. Attention was then turned to the vagina. A Ashford catheter was placed in the bladder. A sacrocolpopexy tip was selected. The MIGUEL manipulator was assembled and inserted into the vagina. Attention was then turned to the abdomen. The skin was anesthetized with Marcaine 0.5% with epinephrine at infraumbilical. A 8 mm incision was made in the skin with an 11 blade scalpel. A 5 mm XL trocar and sleeve were introduced into the abdominal cavity under direct laparoscopic visualization. Pneumoperitoneum was achieved with CO2 gas and the patient was placed in extreme Trendelenburg position. Robotic trocars were placed no less than 10 centimeters apart in a in an M pattern pattern. Prior to placement of all trocars, the skin was anesthetized with Marcaine 0.5% with Epinephrine, and a peritoneal bleb was created intra-abdominally. A 8 mm incision was made in the LLQ and a robotic trocar was placed under direct laparoscopic visualization. Next, a 5 (more content not included)... Normal [facility] POC GLUCOSE - Joel 024 Glucose [Mass/Vol] 87 mg/dL Normal 65-99 [facility] Comment on above: Performed By: #### 4 [id number] #### [facility] [address] [place] [address] [id number] [facility] TISSUE EXAMon 10-29-2023 TISSUE EXAM Surgical Pathology Report Case: [id number] Authorizing Provider: Bernabe Rouse, Collected: 10/29/2023 08:38 AM Ordering Location: [facility] Received: 10/29/2023 10:12 AM Hospital Periop Pathologist: Giacomo Dennison MD Specimens: A) - Ovary, Right B) - Peritoneum, Please Specify, Small Bowel Endo A. Ovary, right, oophorectomy: -Benign cystic ovary with necrosis, hemorrhage, and hemosiderin-laden macrophages (see comment) B. Peritoneum, small bowel, biopsy: -Soft tissue with hemorrhage and hemosiderin-laden macrophages, suspicious for endometriosis. Specimen A: Histologic sections demonstrate ovarian tissue with large areas of necrosis and hemorrhage. There are hemosiderin laden-macrophages present along with focal foreign body-type giant cell reaction and chronic inflammation. No definitive endometrial epithelium or stroma is present. The findings may be related to ovarian torsion; however, underlying endometriosis cannot be ruled out. There is no evidence of malignancy. Clinical correlation is recommended. Endometriosis determined by laparoscopy N80.9, interstitial cystitis N30.10 and endometrioma of ovary N80.129 Specimen A. Received in formalin labeled Caroline Guillen Delores and designated right ovary and consists of a 38 g aggregate of dusky pink-nguyen rubbery tissue, consistent with possible fragmented ovarian cysts, that is 6.1 x 4.4 x 2.1 cm. The external surface of each portion of tissue is nguyen and dusky. The inner aspect of each fragment of fibrous tissue is caked with red-brown gelatinous blood. Sectioning the ragged possible cysts reveal wall cut surfaces up to 0.9 cm, which is slightly calcified and thickened. Uninvolved ovarian parenchyma is not appreciated. Fitness Attendant sections of the specimen are submitted in cassettes A1-A4. M/4. Specimen B. Received in formalin labeled MindyAmarilisCaroline M and designated small bowel endo and consists of a rubbery nguyen sheet of fibrous tissue, that is 1.6 x 1.0 x 0.2 cm. The specimen is trisected and entirely submitted. All /. LG/KK/sb Gross examination performed at: [facility] - [address] [place] [address] Microscopic examination is performed. Normal [facility] Comment on above: Performed By: #### 4 [id number] #### [facility] [address] [place] [address] Nhan Cortez M.D. [id number] Blood type and Indirect anti body screen panel (Bld)on 10-20-2023 ABO and Rh group Nom (Bld) Blood group O Rh(D) positive [facility] Blood group antibody screen Ql Negative [facility] Specimen Expires 11/10/2023 23:[address] [facility] CBCon 10-20-2023 AUTO NRBC 0.0 % Normal [facility] Comment on above: Performed By: #### 4 [id number] #### [facility] [address] [place] [address] Nhan Cortez M.D. [id number] AUTO NRBC ABS COUNT 0.00 K/mcL Normal 0.00-0.00 [facility] Comment on above: Performed By: #### 4 [id number] #### [facility] [address] [place] [address] Nhan Cortez M.D. [id number] Erythrocyte distribution width (RBC) [Ratio] 11.8 % Normal 11.6-14.8 [facility] Comment on above: Performed By: #### 4 [id number] #### [facility] [address] [place] [address] Nhan Cortez M.D. [id number] Hematocrit (Bld) [Volume fraction] 43.4 % Normal 36.0-46.0 [facility] Comment on above: Performed By: #### 4 [id number] #### [facility] [address] [place] [address] Nhan Cortez M.D. [id number] Hemoglobin (Bld) [Mass/Vol] 14.6 g/dL Normal 12.0-16.0 [facility] Comment on above: Performed By: #### 4 [id number] #### [facility] [address] [place], [place] [address] Nhan Cortez M.D. [id number] MCH (RBC) [Entitic mass] 30.7 pg Normal 26.0-34.0 [facility] Comment on above: Performed By: #### 4 [id number] #### [facility] [address] [place], [place] [address] Nhan Cortez M.D. [id number] MCV (RBC) [Entitic vol] 91.2 fL Normal 80.0-100.0 [facility] Comment on above: Performed By: #### 4 [id number] #### [facility] [address] [place] [address] 44783 Nhan Cortez M.D. [id number] MEAN CORPUSCULAR HEMOGLOBIN CONC 33.6 g/dL Normal 31.0-37.0 [facility] Comment on above: Performed By: #### 4 [id number] #### [facility] [address] [place], [place] [address] Nhan oCrtez M.D. [id number] Platelet mean volume (Bld) [Entitic vol] 9.8 fL Normal 9.4-12.4 [facility] Comment on above: Performed By: #### 4 [id number] #### [facility] [address] [place], [place] [address] Nhan Cortez M.D. [id number] Platelets (Bld) [#/Vol] 384 10*3/uL Normal 150-400 [facility] Comment on above: Performed By: #### 4 [id number] #### [facility] [address] [place], [place] [address] Nhan Cortez M.D. [id number] RBC (Bld) [#/Vol] 4.76 10*6/uL Normal 4.00-5.20 [facility] Comment on above: Performed By: #### 4 [id number] #### [facility] [address] [place] [address] 26158 Nhan Cortez M.D. [id number] WBC (Bld) [#/Vol] 7.20 10*3/uL Normal 4.50-11.00 [facility] Comment on above: Performed By: #### 4 [id number] #### [facility] [address] [place], [place] [address] Nhan Cortez M.D. [id number] CBC panel Auto (Bld)on 10-19 Erythrocyte distribution width (RBC) [Entitic vol] 11.8 % 11.6 - 14.8 % [facility] Hematocrit (Bld) [Volume fraction] 43.4 % 36.0 - 46.0 % [facility] Hemoglobin (Bld) [Mass/Vol] 14.6 g/dL 12.0 - 16.0 g/dL [facility] MCH (RBC) [Entitic mass] 30.7 pg 26.0 - 34.0 pg [facility] MCHC (RBC) [Mass/Vol] 33.6 g/dL 31.0 - 37.0 g/dL [facility] MCV (RBC) [Entitic vol] 91.2 fL 80.0 - 100.0 fL [facility] Nucleated RBC (Bld) [#/Vol] 0.00 10*3/uL [facility] Nucleated RBC/100 WBC (Bld) [Ratio] 0.0 % [facility] Platelet mean volume (Bld) [Entitic vol] 9.8 fL 9.4 - 12.4 fL [facility] Platelets (Bld) [#/Vol] 384 10*3/uL [facility] RBC (Bld) [#/Vol] 4.76 10*6/uL [facility] WBC (Bld) [#/Vol] 7.20 10*3/uL [facility] H AND Obdulio 10-20-2023 H AND P Assessment and Plan 1. Endometriosis determined by laparoscopy Primary management per DOCUMENT IMAGE TECHNICIAN team. Patient provided instructions on preoperative management of medications including withholding Aspirin, NSAIDS, and specific Herbal Supplements. 2. Pre-op examination Medically acceptable for elective procedure. This patient has no active cardiac conditions and would be considered at a low risk for a major adverse cardiac event (MACE) based on a revised cardiac risk index (RCRI) score of 0. This patient has an activity level greater than 4 METS and would be considered at acceptable cardiac risk based on the 2014 [place] [employer] (ACC/AHA) guidelines on Perioperative Cardiovascular Evaluation and Management of Patients Undergoing Noncardiac Surgery. Deep vein thrombosis prophylaxis deferred to surgical service, recommend 2016 [employer]ician Guidelines. Apfel score is 2. (Score/Risk of PONV = 0/10%, 1/21%, 2/39%, 3/61%, 4/79%). This score has been externally validated. 3. Anxiety and depression By hx. Andrzej. Patient given instruction on preoperative use of anxiety/depression medications. 4. Bipolar affective disorder, remission status unspecified (HCC) Suspected. Pt follows with a psychiatries. Andrzej. 5. Complication of anesthesia, initial encounter History of latasha after back surgery. She is instructed alert anesthesia about this on the day of her procedure No chief complaint on file. History of Present Illness Caroline Guillen is a 32 y.o. female who presents at the request of Bernabe Rouse MD prior to ROBOTIC ASSISTED LAPAROSCOPIC EXCISION OF ENDOMETRIOSIS, LEFT OVARIAN CYSTECTOMY, POSSIBLE OOPHORECTOMY, LYSIS OF ADHESIONS,, CYSTOSCOPY POSSIBLE HYDRODISTENTION *MODERATE* *ERAS PROTOCOL* *GLYCEMIC CONTROL PROTOCOL* 10/29/23. Pre-Op Dx: Endometriosis determined by laparoscopy [N80.9], Interstitial cystitis [N30.10], Endometrioma of ovary [N80.129]. Portions of this note were taken using [employer] dictation system. There may be unintended errors/omissions as a result. Patient is a very nice 32-year-old female with history of anxiety, depression, possible bipolar disorder and endometriosis. She is here for preop restratification planned robotic assisted laparoscopic excision of endometriosis to be performed on 10/29/2023. She denies any history of coronary disease, congestive heart failure, cerebrovascular disease, diabetes, or chronic kidney disease. She denies any history of postoperative nausea or vomiting. She denies any tobacco use. She does have a history of complication of anesthesia with latasha after anesthesia after back surgery. She is instructed to alert anesthesia about this on the day of her procedure. Patient says they can climb up 2 flights of stairs without chest pain. Functional capacity is greater than 4 METS. Patient denies any recent fevers, chills, sweats, nausea, vomiting, diarrhea, chest pain, shortness of breath, or dysuria. Patient tells me she has been feeling more anxious recently. She thinks it is due to Seroquel. Her psychiatrist increase her Seroquel dose from 25 to 50 mg nightly. She has noted increased anxiety since that time. She more recently last day her to cut her cervical back down to 25 mg a day which she was on in the past. She we will follow-up with her psychiatrist for further dosing in the future Past Medical History: Diagnosis Date Anxiety Arthritis Back pain Bipolar disorder ([facility]) April 2023 Bladder problem 2019 Interstitial Cystitis Chronic pain disorder 2018 Depression Endometriosis Fibromyalgia, primary GERD (gastroesophageal reflux disease) Headache IC (interstitial cystitis) pain on urination at times or if waits too long to urinate Neck pain Overactive bladder 2009 Patient had no falls in past year Peripheral neuropathy left fingers, left great toe and lower leg Psychiatric disorder Psychosis ([facility]) 02-24-2021 Temporary Caused by Dexamethasone Past Medical History Pertinent Negatives: Diagnosis Date Noted Alcoholism ([facility]) 04/25/2023 Anemia 04/25/2023 Arrhythmia 04/25/2023 Asthma 04/25/2023 Bleeding disorder ([facility]) 04/25/2023 Cancer ([facility]) 04/25/2023 Cataract 04/25/2023 CHF (congestive heart failure) ([facility]) 04/25/2023 Chronic kidney disease (CKD) 04/25/2023 Clostridium difficile infection 11/09/2019 Complication of anesthesia 11/09/2019 COPD (chronic obstructive pulmonary disease) ([facility]) 04/25/2023 Coronary artery disease 04/25/2023 Crohn's disease ([facility]) 04/25/2023 Deep vein thrombosis ([facility]) 04/25/2023 Dementia ([facility]) 04/25/2023 Dermatitis 04/25/2023 Diabetes mellitus type I ([facility]) 04/25/2023 Diabetes mellitus, type 2 ([facility]) 11/09/2019 Diverticulosis 04/25/2023 Edema 04/25/2023 Emphysema of lung ([facility]) 04/25/2023 ESBL (extended spectrum beta-lactamase) producing bacteria infection 04/25/2023 Gl (more content not included)... [facility] TYPE AND SCREENon 10-20-2023 TYPE AND SCREEN ABORH: O Positive AB SCREEN: Negative EXPIRATION DATE: 11/10/2023 23:59 EST [facility] Comment on above: Performed By: #### [id number] #### [facility] [address] [place] [address] Alessia Moralez MD [id number] [facility] [place] 125Ordered By: Jacky Garland ins on 08-20-2023 Cancer Ag 125 Qn 69.4 [arb'U]/mL High 0.0 - 35 .0 U/mL [facility] Interpretation and review of laboratory results Abnormal [facility] AFP TUMOR MARKERon 4 AFP TUMOR MARKER 1.4 ng/mL Normal 0.0-15.0 [facility] Comment on above: Order Comment: Assay performed by Miko Rajinder DXI Immunoassay. Performed By: #### 4 [id number] #### [facility] [address] [place] [address] 10363 Nhan Cortez M.D. [id number] AFP tumor markeron 4 AFP.tumor marker [Mass/Vol] 1.4 ng/mL 0.0 - 15.0 ng/mL [facility] Interpretation and review of laboratory results Normal [facility] Assay performed by Miko Rajinder DXI Immunoassay. [facility] [place] 125on 08-19-2023 [place] 125 69.4 U/mL High 0.0-35.0 [facility] Comment on above: Performed By: #### 4 [id number] #### [facility] [address] [place], [place] [address] Nhan Cortez M.D. [id number] [place] 19-9Ordered By: Grover triplett on 08-19-2023 Cancer Ag 19-9 Qn 5.2 [arb'U]/mL 0.0 - 40 .0 U/mL [facility] Interpretation and review of laboratory results Normal [facility] Assay performed by Miko Glen DXI Immunoassay. [facility] [place] 19-9on 08-19-2023 [place] 19-9 5.2 U/mL Normal 0.0-40.0 [facility] Comment on above: Order Comment: Assay performed by Miko Glen DXI Immunoassay. Performed By: #### 4 [id number] #### [facility] [address] [place] [id number] Nhan Cortez M.D. [id number] MR LUMBAR SPINE WITHOUT CONT [facility] [place] 07-25-2023 MR LUMBAR SPINE WITHOUT CONTRAST EXAMINATION: MRI OF THE LUMBAR SPINE WITHOUT CONTRAST 07/25/2023 TECHNIQUE: Multiplanar multisequence MRI of the lumbar spine was performed without the administration of intravenous contrast. COMPARISON: 02/17/2023 HISTORY: ORDERING SYSTEM PROVIDED HISTORY: persistent left radicular pain s/p lumbar discectomy; TECHNOLOGIST PROVIDED HISTORY: Illness/Other Acuity: Chronic Reason for Exam: left hip and leg pain, numbness, burning, tingling and weakness. low back stiffness. First started in 2017 Type of Encounter: Subsequent/Follow-up ORDERING SYSTEM PROVIDED DIAGNOSIS CODES: M54.16 Lumbar radiculopathy FINDINGS: BONES/ALIGNMENT: There is normal alignment of the spine. The vertebral body heights are maintained. Mild degenerative endplate changes are identified at L4-L5. No acute fracture is detected. L2 vertebral body hemangioma is noted. SPINAL CORD: The conus terminates normally. SOFT TISSUES: No paraspinal mass identified. L1-L2: There is no significant disc herniation, spinal canal stenosis or neural foraminal narrowing. L2-L3: There is no significant disc herniation, spinal canal stenosis or neural foraminal narrowing. L3-L4: There is no significant disc herniation, spinal canal stenosis or neural foraminal narrowing. L4-L5: Left hemilaminectomy is identified. Scar tissue noted within the left ventral epidural space extending into the left foramina. No convincing disc protrusion is seen. Small left foraminal osteophytes are unchanged. L5-S1: There is no significant disc herniation, spinal canal stenosis or neural foraminal narrowing. IMPRESSION: Stable left hemilaminectomy at L4-5. Scar tissue noted within the left ventral epidural space and left foramina appears unchanged. No convincing disc protrusion is seen. VVR/ Workstation ID: [id number] Dictated by: LUIGI HEATON V on FriJul 30, 2023 3:18:30 PM EDT Transcribed by: HADLEY MA on FriJul 30, 2023 3:29:53 PM EDT Finalized by: LUIGI HEATON V on FriJul 31, 2023 7:40:46 AM EDT [facility] Comment on above: Order Comment: Injur y/Trauma or Illness?:Illness/Other How long have you had these symptoms (acute/chronic)?:Chronic Reason for exam?:left hip and leg pain, numbness, burning, tingling and weakness. low back stiffness. First started in 2017 Type of Exam?:Subsequent/Follow-up Additional signs and symptoms?:n/a XR HIP LEFT 2-3 VIEWS (ROUTI NE)on 07-22-2023 XR HIP LEFT 2-3 VIEWS (ROUTINE) EXAMINATION: XR HIP LEFT 2-3 VIEWS (ROUTINE) 07/22/2023 2:53 pm HISTORY: ORDERING SYSTEM PROVIDED HISTORY: S/P discetomy/pain, TECHNOLOGIST PROVIDED HISTORY: Illness/Other Reason for exam: chronic pain in the posterior hip encircle the joint with radiating pain burning and numbness down the leg off and on for several years Cancer History: n Surgery, RadiationHistory: n Encounter Type: Initial Additional signs and symptoms: hx of Lspine surgery ORDERING SYSTEM PROVIDED DIAGNOSIS CODES: M25.552 Left hip pain COMPARISON: None available. TECHNIQUE: Two views of the left hip. FINDINGS: Osseous mineralization is average for age. Femoral head is well seated in the acetabulum. Joint space is maintained. There is no acute fracture or radiographic evidence of AVN. Soft tissues appear grossly normal. IMPRESSION: Negative radiographs of the left hip. KATH/manuel Workstation ID: [id number] Dictated by: LEONIDAS PHAN on FriJul 24, 2023 12:20:14 PM EDT Transcribed by: MILANA DORSEY on FriJul 24, 2023 12:31:38 PM EDT Finalized by: LEONIDAS PHAN on FriJul 24, 2023 3:49:22 PM EDT [facility] Comment on above: Order Comment: Injur y/Trauma or Illness?:Illness/Other How long have you had these symptoms (acute/chronic)?:Chronic Reason for exam?:chronic pain in the posterior hip encircle the joint with radiating pain burning and numbness down the leg off and on for several years History of cancer?:n Surgeries, chemotherapy, or radiation?:n Type of Exam?:Initial Additional signs and symptoms?:hx of Lspine surgery Glucose (Bld) [Mass/Vol]on 0 04-30-2023 Glucose [Mass/Vol] 97 mg/dL 65 - 99 mg/dL [facility] Interpretation and review of laboratory results Normal [facility] XR OR FLUOROSCOPY TIMEon XR OR FLUOROSCOPY TIME This is an auto finalized result. Please refer to patient chart for further information. further information. further information. Normal [facility] Comment on above: Order Comment: Injur y/Trauma or Illness?:Illness/Other How long have you had these symptoms (acute/chronic)?:Acute Reason for exam?:RADICULOPATHY Type of Exam?:Initial Additional signs and symptoms?:. Fluoro time in minutes:0.04 Fluoro dose in mGy?:0.62 XR and RF Chest PA and Later al and Viewson 04-30-2023 This is an auto finalized result. Please refer to patient chart for further information. [facility] US Transvaginalon 07-05-2021 Age: 30 LMP: Spotting on Nuva ring Indication for Ultrasound: Follow up right ovarian cyst and spotting with Nuva Ring Uterus: Length (cm): 7.0 Height (cm):3.7 Width (cm): 4.4 Endometrial linin.9 mm Fibroids: None Right Ovary: Length (cm): 1.9 Height (cm): 2.9 Width (cm): 1.9 Left Ovary: Length (cm): 1.4 Height (cm): 1.4 Width (cm): 1.6 Cul de Sac: Negative for free fluid Notes: Anteverted uterus with no uterine masses seen. The endometrium is uniform in appearance. The right ovary contains a 1.2 x 1.8 x 1.2 cm hypoechoic mass, likely resolving cyst. The other cyst seen on prior has resolved. The left ovary was somewhat obscured by bowel, however normal in appearance. No free fluid in the pelvis. Oracle Dba: Efren MARTIN, RDMS Images reviewed and above findings noted. Bernabe Rouse MD 07/05/21 10:03 PM [employer] [facility] Transvaginalon 07-02-2021 Radiology Study observation (narrative) [facility] COVID-19, Rapidon 04-17-2021 SARS-CoV-2 (COVID-19) RNA SAI+probe Ql (Unsp spec) Not detected Not Detected [facility] Comment on above: Rapid NAAT: The specimen is NEGATIVE for SARS-CoV-2, the novel coronavirus associated with COVID-19. The ID NOW COVID-19 assay is designed to detect the virus that causes COVID-19 in patients with signs and symptoms of infection who are suspected of COVID-19. An individual without symptoms of COVID-19 and who is not shedding SARS-CoV-2 virus would expect to have a negative (not detected) result in this assay. Negative results should be treated as presumptive and, if inconsistent with clinical signs and symptoms or necessary for patient management, should be tested with an alternative molecular assay. Negative results do not preclude SARS-CoV-2 infection and should not be used as the sole basis for patient management decisions. Fact sheet for Healthcare Providers: https://www.fda.gov/media/794497/download Fact sheet for Patients: https://www.fda.gov/media/767560/download Methodology: Isothermal Nucleic Acid Amplification Specimen Description .NASOPHARYNGEAL SWAB [facility] [id number] 04-17-2021 SARS-CoV-2 (COVID-19) RNA SAI+probe Ql (Unsp spec) Not detected Normal [facility] Comment on above: Result Comment: Rapid NAAT: The specimen is NEGATIVE for SARS-CoV-2, the novel coronavirus associated with COVID-19. The ID NOW COVID-19 assay is designed to detect the virus that causes COVID-19 in patients with signs and symptoms of infection who are suspected of COVID-19. An individual without symptoms of COVID-19 and who is not shedding SARS-CoV-2 virus would expect to have a negative (not detected) result in this assay. Negative results should be treated as presumptive and, if inconsistent with clinical signs and symptoms or necessary for patient management, should be tested with an alternative molecular assay. Negative results do not preclude SARS-CoV-2 infection and should not be used as the sole basis for patient management decisions. Fact sheet for Healthcare Providers: https://www.fda.gov/media/928273/download Fact sheet for Patients: https://www.fda.gov/media/936291/download Methodology: Isothermal Nucleic Acid Amplification Performed By: #### C OVRB #### [facility] [address] [place] [address] [employer] Supervisor: Ron Guillen MD Surgical Pathologyon 022 Surgical Pathology (NOTE) -- Diagnosis -- Bilateral tonsils: Reactive lymphoid hyperplasia. Artur Sutherland M.D. Electronically Signed Out rdd/04/18/2021 Clinical Information Pre-op Diagnosis: CHRONIC TONSILLITIS, DYSPHAGIA Operative Findings: TONSILS Operation Performed: TONSILLECTOMY Source of Specimen A: TONSIL(S) 1 Gross Description KODY COLVIN Two tonsils, 2 grams and 2.5 x 1.8 x 0.5 cm and 3 grams, 3.1 x 2.5 x 1.2 cm. Sectioning reveals clefted nguyen-pink cut surfaces with no masses. Fitness Attendant section of each 2cs. tm Microscopic Description Microscopic examination performed. SURGICAL PATHOLOGY CONSULTATION Patient Name: CAROLINE GUILLEN [facility] Rec: [id number] Path Number: [id number] [facility] ANATOMIC PATHOLOGY [address] [place] [id number] [facility] Comment on above: Performed By: #### P PPVS #### [employer] [address] [place] [address] [id number] [employer] Supervisor: Duong Coello MD US Transvaginalon 04-05-2021 Age: 30 LMP: 02/27/21 Indication for Ultrasound: chronic pelvic pain Uterus: Length (cm): 6.8 Height (cm): 3.6 Width (cm): 4.1 Endometrial linin.9 mm Fibroids: None visualized Right Ovary: Length (cm): 4 Height (cm): 4.2 Width (cm): 4 Left Ovary: Length (cm): 1.2 Height (cm): 2 Width (cm): 1.0 Cul de Sac: Negative for free fluid Notes: Anteverted uterus with inhomogeneous, streaky echo texture. Endometrium is uniform. The right ovary is enlarged with 2 cysts measuring 23 x 25 x 23 mm and 22 x 18 x 22 mm. These cysts have an endometrioma appearance to them. There is normal Doppler signal, with an RI of .72. The left ovary was visualized and is normal in appearance. No free fluid in the pelvis. Oracle Dba: Efren MARTIN, RDMS Images reviewed and above findings noted. Ovarian cysts suspicious for endometrioma vs hemorrhagic cyst. Bernabe Rouse MD 04/05/21 12:36 AM [facility] US Transvaginalon 04-02-2021 Radiology Study observation (narrative) [facility] CNOVon 02-21-2021 CNOV Office Visit (UCWSTR ) MINDYCAROLINE ([id number]) 1990 F Date Time Provider Department 02/21/21 1:30 PM LEONIDAS CHATTERJEE [facility] During your visit today, we recorded the following information about you: Temperature Pulse Respiration Blood pressure 99.1 degrees 115/minute 16/minute 144/90 Weight Last Period 71 kg 02/21/21 Leonidas Chatterjee APRN.TECHNIC[employer] 02/21/2021 2:35 PM Signed Subjective HPI Nontoxic-appearing female presents urgent care [...] of care. This note was generated using [employer] software. It may contain errors in wording, punctuation, or spelling. Leonidas Chatterjee APRN.BORA Chatterjee APRN.CNP 02/21/2021 2:30 PM Signed R.I.C.E. The general care of your injury includes the following: Resting, Icing, Compressing and Elevating the injured area. Remember this as RICE. - REST: Limit the use of the injured body part. - ICE: By applying ice to the affected area, swelling and pain can (more content not included)... Normal [facility] XR HAND 3V PA/LAT/OBL RTon 0 02-21-2021 XR HAND 3V PA/LAT/OBL RT * * *Final Report* * * DATE OF EXAM: Feb 21 2021 2:15PM WOX [id number] - XR HAND 3V PA/LAT/OBL RT / PROCEDURE REASON: Pain of right hand * * * * Physician Interpretation * * * * EXAM TITLE: XR HAND 3V PA/LAT/OBL RT EXAM DATE/TIME: 02/21/2021 2:15 PM COMPARISON: None. CLINICAL INDICATION/HISTORY: Right thumb and index finger pain. TECHNIQUE: PA, lateral and oblique views of the right hand are presented. FINDINGS: No acute fractures or subluxations are noted. The joint spaces are well preserved. The mineralization of the bones is normal. There is no significant soft tissue swelling. IMPRESSION: No acute radiographic abnormalities seen in the right hand. Focusing Machine Operator: LIEN Transcribe Date/Time: Feb 21 2021 2:18P Dictated by : MACHO YU MD This examination was interpreted and the report reviewed and electronically signed by: MACHO YU MD on Feb 21 2021 2:20PM EST [id number] Normal [facility] XR Hand - right PA and Later al and Obliqueon 02-21-2021 IMPRESSION: No acute radiographic abnormalities seen in the right hand. Focusing Machine Operator: LIEN Transcribe Date/Time: Feb 21 2021 2:18P Dictated by : MACHO YU MD This examination was interpreted and the report reviewed and electronically signed by: MACHO YU MD on Feb 21 2021 2:20PM [facility] DIVISION OF RADIOLOGY * * *Final Report* * * DATE OF EXAM: Feb 21 2021 2:15PM WOX 5346 - XR HAND 3V PA/LAT/OBL RT / PROCEDURE REASON: Pain of right hand * * * * Physician Interpretation * * * * EXAM TITLE: XR HAND 3V PA/LAT/OBL RT EXAM DATE/TIME: 02/21/2021 2:15 PM COMPARISON: None. CLINICAL INDICATION/HISTORY: Right thumb and index finger pain. TECHNIQUE: PA, lateral and oblique views of the right hand are presented. FINDINGS: No acute fractures or subluxations are noted. The joint spaces are well preserved. The mineralization of the bones is normal. There is no significant soft tissue swelling. DIVISION OF RADIOLOGY Provider, [facility] - 02/21/2021 * * *Final Report* * * DATE OF EXAM: Feb 21 2021 2:15PM WOX 5346 - XR HAND 3V PA/LAT/OBL RT / PROCEDURE REASON: Pain of right hand * * * * Physician Interpretation * * * * EXAM TITLE: XR HAND 3V PA/LAT/OBL RT EXAM DATE/TIME: 02/21/2021 2:15 PM COMPARISON: None. CLINICAL INDICATION/HISTORY: Right thumb and index finger pain. TECHNIQUE: PA, lateral and oblique views of the right hand are presented. FINDINGS: No acute fractures or subluxations are noted. The joint spaces are well preserved. The mineralization of the bones is normal. There is no significant soft tissue swelling. IMPRESSION IMPRESSION: No acute radiographic abnormalities seen in the right hand. Focusing Machine Operator: PSCB Transcribe Date/Time: Feb 21 2021 2:18P Dictated by : MACHO YU MD This examination was interpreted and the report reviewed and electronically signed by: MACHO YU MD on Feb 21 2021 2:20PM [facility] Radiology Study observation (narrative) [facility] XR Hand - right PA and Later al and ObliqueOrdered By: Ccf Provider on 02-21-2021 [facility] US TRANSVAGINALon 10-22-2020 Age: 29yo LMP: 10/11/2020 Indication for Ultrasound: hx of pelvic pain, endometriosis Uterus: Length (cm): 7.8 Height (cm): 3.1 Width (cm): 3.7 Endometrial linin.97 mm Fibroids: none Right Ovary: Length (cm): 4.1 Height (cm): 3.2 Width (cm): 3.7 Left Ovary: Length (cm): 1.9 Height (cm): 1.1 Width (cm): 2.0 Cul de Sac: Negative for free fluid Notes: Anteverted uterus. No obvious fibroids seen. Within the right ovary is a heterogenous density measuring 2.8 x 2.6 x 2.3 cm. There is normal right ovarian blood flow with an RI of 0.51. The left ovary appears unremarkable. Oracle Dba: Andreina Ibanez RDMS Images reviewed and above findings noted. Right ovarian cyst suspicious for an endometrioma versus hemorrhagic cyst. Bernabe Rouse MD 10/22/20 8:17 PM [facility] US TRANSVAGINALon 10-18-2020 Radiology Study observation (narrative) [facility] ABORH VERIFICATIONon 020 ABO and Rh group Nom (Bld) ABO/Rh Verification [facility] Comment on above: Patient's ABO/Rh is verified. ABO and Rh group Nom (Bld) O Positive [facility] CBCon 11-09-2019 Erythrocyte distribution width (RBC) [Entitic vol] 11.7 % 11.6 - 14.8 % [facility] Hematocrit (Bld) [Volume fraction] 42.3 % 36 - 46 % [facility] Hemoglobin (Bld) [Mass/Vol] 13.7 g/dL 12 - 16 g/dL [facility] Interpretation and review of laboratory results Abnormal [facility] MCH (RBC) [Entitic mass] 31.1 pg 26 - 34 pg [facility] MCHC (RBC) [Mass/Vol] 32.4 g/dL 31 - 37 g/dL [facility] MCV (RBC) [Entitic vol] 96.1 fL 80 - 100 fL [facility] Nucleated RBC (Bld) [#/Vol] 0.00 10*3/uL [facility] Nucleated RBC/100 WBC (Bld) [Ratio] 0.0 % [facility] Platelet mean volume (Bld) [Entitic vol] 10.3 fL 9.4 - 12.4 fL [facility] Platelets (Bld) [#/Vol] 351 10*3/uL [facility] RBC (Bld) [#/Vol] 4.40 10*6/uL [facility] ealth WBC (Bld) [#/Vol] 14.75 10*3/uL [facility] Otheron 11-09-2019 Interpretation and review of laboratory results Normal [facility] POC Glucoseon 11-09-2019 Glucose [Mass/Vol] 96 mg/dL 65 - 99 mg/dL [facility] POC , Urineon 11-08 Beta HCG ( test) Ql (U) Dilute urine specimens, as indicated by a low specific gravity (<1.010) may not contain insurance verification representative levels of hCG. If is still suspected, a serum test or repeat urine test using a first morning urine specimen should be considered. [facility] HCG ( test) Ql (U) Negative Negative [facility] Type and Screenon 11-09-2019 ABO and Rh group Nom (Bld) O Positive [facility] Blood group antibody screen Ql Negative [facility] Specimen Expires 11/12/2019 23:59 EST [facility] HPVon 08-02-2019 HPV Interp Normal See Interp HPVN [facility] ([place] Comment on above: Order Comment: Order placed by AP_HPV_ORDER rule from [id number] Result Comment: High Risk HPV Typing: NEGATIVE HPV types 16, 18, 31, 33, 35, 39, 45, 51, 52, 56, 58, 59, 66 and 68 DNA were undetectable or below the pre-set threshold. The cameron High-Risk HPV DNA Test is not intended for use as a screening device for Pap normal women under age 30 and is not intended to substitute for regular Pap screening. The cameron High-Risk HPV DNA Test is designed to augment existing methods for the detection of cervical disease and should be used in conjunction with clinical information derived from other diagnostic and screening tests, physical examinations and full medical history in accordance with appropriate patient management procedures. NOTE: A negative result does not preclude the presence of HPV infection because results depend on adequate specimen collection, absence of inhibitors and sufficient DNA to be detected. See Interp HPVN Performed By: #### H PV #### [place] [address] HPV Source Cervix Normal [facility] ([place] Comment on above: Order Comment: Order placed by AP_HPV_ORDER rule from [id number] Performed By: #### H PV #### [place] [address] 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 Cytology Reporton 2019 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 Cytology Report . Pathology Reports Accession: Collected Date/Time: Received Date/Time: Pathologist: [id number] 07/21/2019 15:49 EDT 07/22/2019 18:00 EDT 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 Cytology Report SPECIMEN: Specimen Description: Liquid Prep w/ HPV Specimen: Cervical/Endocervical Screening or Diagnostic: Screening RELEVANT HISTORY: LMP: 07/12/2019 Control: Yes [id number] SPECIMEN ADEQUACY: SATISFACTORY FOR EVALUATION ENDOCERVICAL/TRANSFOR MATIONAL ZONE COMPONENT PRESENT INTERPRETATION/RESULT S: NEGATIVE FOR INTRAEPITHELIAL LESION OR MALIGNANCY ADJUNCTIVE TESTING: HIGH RISK HPV DNA TESTING ORDERED, REPORT TO FOLLOW UNDER SEPARATE COVER COMMENT: This Pap Test was successfully processed and evaluated with the assistance of the [employer]Prep Test Imaging System. Electronically Signed by Pathology report verified by [facility] Screened by: GL Electronically signed by Tabatha Franz Sign-Out Date: 07/29/2019 13:59 Performing Lab: [address] Disclaimer The Pap test is a screening test for cervical cancer. As evidenced by published data, it is subject to both inherent false negative and false positive results. Your patient's results should be interpreted in context with pertinent clinical history including gynecological examination. Normal [facility] ([place] Comment on above: Performed By: #### G YCR #### [place] [address] US TRANSVAGINAL NON OBon US TRANSVAGINAL NON OB ORIGINAL US PELVIS NON-OB TRANSABDOMINAL AND TRANSVAGINAL CLINICAL STATEMENT: Ovarian neoplasm COMPARISON: Ultrasound pelvis report from [facility] 04/09/2019 FINDINGS: The uterus measures 8.5 cm x 3 cm x 4.5 cm. No myometrial mass is seen. The endometrial double wall thickness is 7 mm. There is a 2 mm hyperechoic area within the endometrium which is of uncertain significance. The RIGHT ovary measures 2.5 cm x 1.7 cm x 2.4 cm. The LEFT ovary measures 6 cm x 5.2 cm x 5.8 cm. There is positive doppler flow to both ovaries. There is a 5.6 cm x 5 cm x 4.3 cm hypoechoic lesion within the LEFT ovary. The lesion on today's exam measures slightly smaller than the measurements reported on the comparison exam which has no images. There is no free intraperitoneal fluid. IMPRESSION: 5.6 cm hypoechoic lesion within the LEFT ovary which likely represents an endometrioma. Further evaluation with pelvic MRI is recommended. Interpreted By: Shantelle Ring MD Preliminary Report By: Shantelle Ring MD Electronically Signed By: Shantelle Ring MD Dictated Date: 07/05/2019 8:49:15 AM Prelim Date: 07/05/2019 8:59:31 AM Sign Date: 07/05/2019 9:39:36 AM Ordering Provider:Moriah Nelson Normal [facility]) [id number] 07-03-2019 CA 125 28 U/mL Normal 2-35 [facility]) Comment on above: Performed By: #### V IDH, CA125 #### [place] [id number] VIDHon 07-03-2019 Vit. D 25-Hydroxy 31 ng/mL Normal [facility] ([place]) Comment on above: Result Comment: Inte rpretive Values Based on Total 25(OH)D: Severe Deficiency <20 ng/mL Mild to Moderate Deficiency 20-30 ng/mL Optimum Levels 30-100 ng/mL Toxicity Possible >100 ng/mL Performed By: #### V IDH, CA125 #### [address] [id number] Basic Metabolic Panelon 04-10 Anion gap molar conc 6 mmol/L Normal 5-10 [facility] Comment on above: Performed By: #### B MP #### [facility] [address] [place] [phone] Calcium mass conc 9.4 mg/dL Normal 8.5-10.1 [facility] Comment on above: Performed By: #### B MP #### [address] [address] Chloride molar conc 105 mmol/L Normal 98-107 [facility] Comment on above: Performed By: #### B MP #### [facility] [address] [place] [address] CO2 molar conc 27 mmol/L Normal 21-32 [facility] Comment on above: Performed By: #### B MP #### [facility] [address] [place] [address] Creatinine mass conc 0.65 mg/dL Normal 0.60-1.30 [facility] Comment on above: Performed By: #### B MP #### [facility] [address] [place] [address] eGFR -Amer >60 Normal >=60 [facility] Comment on above: Performed By: #### B MP #### [facility] [address] [place] [address] GFR/1.73 sq M predicted among non-blacks MDRD vol rate/area (S/P/Bld) mL/min/{1.73_m2} Normal >=60 [facility] Comment on above: Performed By: #### B MP #### [facility] [address] [place], [place] [id number] Glucose mass conc 98 mg/dL Normal 74-106 [facility] Comment on above: Performed By: #### B MP #### [facility] [address] [place] [address] Potassium molar conc 3.9 mmol/L Normal 3.5-5.1 [facility] Comment on above: Performed By: #### B MP #### [facility] [address] [place] [address] Sodium molar conc 138 mmol/L Normal 136-145 [facility] Comment on above: Performed By: #### B MP #### [facility] [address] [place] [address] Urea nitrogen mass conc 8 mg/dL Normal 7-18 [facility] Comment on above: Performed By: #### B MP #### [address] [address] CBC with Diffon 04-27-2018 Basophils #/vol (Bld) 0.0 x(10)3/cumm Normal 0.0-0.1 [facility] Comment on above: Performed By: #### C BCDIFF #### [facility] [address] [place] [phone] Basophils/100 WBC (Bld) 0.8 % Normal 0.0-1.0 [facility] Comment on above: Performed By: #### C BCDIFF #### [facility] [address] [place], [place] [id number] Eosinophils #/vol (Bld) 0.1 x(10)3/cumm Normal 0.0-0.4 [facility] Comment on above: Performed By: #### C BCDIFF #### [facility] [address] [place], [place] [phone] Eosinophils/100 WBC (Bld) 0.9 % Normal 0.0-6.1 [facility] Comment on above: Performed By: #### C BCDIFF #### [facility] [address] [place], [place] [phone] Erythrocyte distribution width Ratio (RBC) 12.0 % Normal 11.1-15.3 [facility] Comment on above: Performed By: #### C BCDIFF #### [facility] [address] [place], [place] [phone] Hematocrit Volume Fraction (Bld) 45.4 % High 34.6-45.0 [facility] Comment on above: Performed By: #### C BCDIFF #### [facility] [address] [place], [place] [id number] Hemoglobin mass conc (Bld) 15.0 g/dL Normal 11.5-15.5 [facility] Comment on above: Performed By: #### C BCDIFF #### [facility] [address] [place], [place] [id number] Lymphocytes #/vol (Bld) 1.8 x(10)3/cumm Normal 0.8-2.9 [facility] Comment on above: Performed By: #### C BCDIFF #### [facility] [address] [place], [place] [id number] Lymphocytes/100 WBC (Bld) 30.5 % Normal 12.2-42.6 [facility] Comment on above: Performed By: #### C BCDIFF #### [facility] [address] [place] [id number] MCH Entitic mass (RBC) 31.1 pg Normal 27.2-33.6 [facility] Comment on above: Performed By: #### C BCDIFF #### [facility] [address] [place], [place] [id number] MCHC mass conc (RBC) 33.1 g/dL Normal 32.9-35.3 [facility] Comment on above: Performed By: #### C BCDIFF #### [facility] [address] [place], [place] [id number] MCV Entitic volume (RBC) 93.9 fL Normal 81.3-96.7 [facility] Comment on above: Performed By: #### C BCDIFF #### [facility] [address] [place], [place] [id number] Monocytes #/vol (Bld) 0.3 x(10)3/cumm Normal 0.2-0.8 [facility] Comment on above: Performed By: #### C BCDIFF #### [facility] [address] [place], [place] [id number] Monocytes/100 WBC (Bld) 5.7 % Normal 3.3-11.6 [facility] Comment on above: Performed By: #### C BCDIFF #### [facility] [address] [place], [place] [id number] Neutrophils #/vol (Bld) 3.6 x(10)3/cumm Normal 1.3-7.4 [facility] Comment on above: Performed By: #### C BCDIFF #### [facility] [address] [place], [place] [id number] Platelet mean volume Entitic volume (Bld) 7.7 fL Normal 6.4-10.0 [facility] Comment on above: Performed By: #### C BCDIFF #### [facility] [address] [place] [phone] Platelets #/vol (Bld) 295 x(10)3/cumm Normal 138-367 [facility] Comment on above: Performed By: #### C BCDIFF #### [facility] [address] [place] [address] Plt Morph [facility] Comment on above: Performed By: #### C BCDIFF #### [facility] [address] [place] [id number] RBC #/vol (Bld) 4.83 X(10)6/cumm Normal 3.90-5.10 [facility] Comment on above: Performed By: #### C BCDIFF #### [facility] [address] [place] [id number] RBC Morph cont [facility] Comment on above: Performed By: #### C BCDIFF #### [facility] [address] [place] [address] RBC morphology finding Nom (Bld) [facility] Comment on above: Performed By: #### C BCDIFF #### [facility] [address] [place] [phone] Segmented neutrophils/100 WBC (Bld) 62.1 % Normal 44.9-78.8 [facility] Comment on above: Performed By: #### C BCDIFF #### [facility] [address] [place] [address] WBC #/vol (Bld) 5.8 x(10)3/cumm Normal 3.6-10.3 [facility] Comment on above: Performed By: #### C BCDIFF #### [facility] [address] [place] [phone] WBC Morph [facility] Comment on above: Performed By: #### C BCDIFF #### [address] [address] Vital Signs Date Time Vital Sign Value Performing Clinician Katie sampson 11-13-2023 08:52-0400 Body height 172.7 cm Bernabe Rouse MD Work Phone: [facility] 11-13-2023 08:52-0400 Body mass index (BMI) [Ratio] 26.12 kg/m2 Bernabe Rouse MD Work Phone: [facility] 11-13-2023 08:52-0400 Body weight 77.93 kg Bernabe Rouse MD Work Phone: [facility] 11-13-2023 08:52-0400 Diastolic blood pressure 85 mm[Hg] Bernabe Rouse MD Work Phone: [facility] 11-13-2023 08:52-0400 Heart rate 80 /min Bernabe Rouse MD Work Phone: [facility] 11-13-2023 08:52-0400 Systolic blood pressure 126 mm[Hg] Bernabe Rouse MD Work Phone: [facility] 10-20-2023 10:41-0400 Body height 172.7 cm Reuben Muhammad MD Work Phone: [facility] 10-20-2023 10:41-0400 Body mass index (BMI) [Ratio] 26 kg/m2 Reuben Muhammad MD Work Phone: [facility] 10-20-2023 10:41-0400 Body temperature 98.29 [degF] Reuben Muhammad MD Work Phone: [facility] 10-20-2023 10:41-0400 Body weight 77.56 kg Reuben Muhammad MD Work Phone: [facility] 10-20-2023 10:41-0400 Diastolic blood pressure 92 mm[Hg] Reuben Muhammad MD Work Phone: [facility] 10-20-2023 10:41-0400 Heart rate 72 /min Reuben Muhammad MD Work Phone: [facility] 10-20-2023 10:41-0400 Respiratory rate 14 /min Reuben Muhammad MD Work Phone: [facility] 10-20-2023 10:41-0400 SaO2% (BldA) [Mass fraction] 99 % Reuben Muhammad MD Work Phone: [facility] 10-20-2023 10:41-0400 Systolic blood pressure 142 mm[Hg] Reuben Muhammad MD Work Phone: [facility] 08-12-2023 09:31-0400 Body height 172.7 cm Evita Eric [employer] Work Phone: [facility] 08-12-2023 09:31-0400 Body mass index (BMI) [Ratio] 25.61 kg/m2 Evita Eric [employer] Work Phone: [facility] 08-12-2023 09:31-0400 Body weight 76.39 kg Evita Eric [employer] Work Phone: [facility] 08-12-2023 09:31-0400 Diastolic blood pressure 86 mm[Hg] Evita Eric [employer] Work Phone: [facility] 08-12-2023 09:31-0400 Heart rate 88 /min Evita Eric [employer] Work Phone: [facility] 08-12-2023 09:31-0400 Systolic blood pressure 125 mm[Hg] Evita Eric [employer] Work Phone: [facility] 05-01-2023 10:25-0400 Respiratory rate 16 /min Jessica Meyers Jr., DO Work Phone: [facility] 05-01-2023 07:37-0400 Body temperature 98.2 [degF] Jessica Meyers Jr., DO Work Phone: [facility] 05-01-2023 07:37-0400 Diastolic blood pressure 71 mm[Hg] Jessica Meyers Jr., DO Work Phone: [facility] 05-01-2023 07:37-0400 Heart rate 113 /min Jessica Meyers Jr., DO Work Phone: [facility] 05-01-2023 07:37-0400 SaO2% (BldA) [Mass fraction] 100 % Jessica Moreirapradeep Meadows, DO Work Phone: [facility] 05-01-2023 07:37-0400 Systolic blood pressure 113 mm[Hg] Jessica Gonzalesyvonne Meadows, DO Work Phone: [facility] 04-30-2023 08:21-0400 Body height 172.7 cm Jessica Gonzalesyvonne Meadows, DO Work Phone: [facility] 04-30-2023 08:21-0400 Body mass index (BMI) [Ratio] 26.15 kg/m2 Jessica Gonzalesyvonne Meadows, DO Work Phone: [facility] 04-30-2023 08:21-0400 Body weight 78 kg Jessica Gonzalesyvonne Meadows, DO Work Phone: [facility] 05-02-2022 09:44-0400 Body height 172.7 cm Bernabe Rouse MD Work Phone: [facility] 05-02-2022 09:44-0400 Body mass index (BMI) [Ratio] 26.61 kg/m2 Bernabe Rouse MD Work Phone: [facility] 05-02-2022 09:44-0400 Body weight 79.38 kg Bernabe Rouse MD Work Phone: [facility] 05-02-2022 09:44-0400 Diastolic blood pressure 92 mm[Hg] Bernabe Rouse MD Work Phone: [facility] 05-02-2022 09:44-0400 Heart rate 120 /min Bernabe Rouse MD Work Phone: [facility] 05-02-2022 09:44-0400 Systolic blood pressure 134 mm[Hg] Bernabe Rouse MD Work Phone: [facility] 04-09-2022 10:34-0500 Body height 172.7 cm Aaliyah Perez MD Work Phone: [facility] 04-09-2022 10:34-0500 Body mass index (BMI) [Ratio] 26.83 kg/m2 Aaliyah Perez MD Work Phone: [facility] 04-09-2022 10:34-0500 Body temperature 97.9 [degF] Aaliyah Perez MD Work Phone: [facility] 04-09-2022 10:34-0500 Body weight 80.05 kg Aaliyah Perez MD Work Phone: [facility] 04-09-2022 10:34-0500 Diastolic blood pressure 90 mm[Hg] Aaliyah Perez MD Work Phone: [facility] 04-09-2022 10:34-0500 Heart rate 88 /min Aaliyah Perez MD Work Phone: [facility] 04-09-2022 10:34-0500 Respiratory rate 14 /min Aaliyah Perez MD Work Phone: [facility] 04-09-2022 10:34-0500 SaO2% (BldA) [Mass fraction] 100 % Aaliyah Perez MD Work Phone: [facility] 04-09-2022 10:34-0500 Systolic blood pressure 144 mm[Hg] Aaliyah Perez MD Work Phone: [facility] 10-08-2021 14:34-0400 Body height 172.7 cm Bernabe Rouse MD Work Phone: [facility] 10-08-2021 14:34-0400 Body mass index (BMI) [Ratio] 25.85 kg/m2 Bernabe Rouse MD Work Phone: [facility] 10-08-2021 14:34-0400 Body weight 77.11 kg Bernabe Rouse MD Work Phone: [facility] 10-08-2021 14:34-0400 Diastolic blood pressure 96 mm[Hg] Bernabe Rouse MD Work Phone: [facility] 10-08-2021 14:34-0400 Heart rate 112 /min Bernabe Rouse MD Work Phone: [facility] 10-08-2021 14:34-0400 Systolic blood pressure 145 mm[Hg] Bernabe Rouse MD Work Phone: [facility] 04-17-2021 13:00-0500 Diastolic blood pressure 78 mm[Hg] Jose Roberto Dunaway MD Work Phone: [facility] [employer] 04-17-2021 13:00-0500 Heart rate 92 /min Jose Roberto Dunaway MD Work Phone: [facility] [employer] 04-17-2021 13:00-0500 Respiratory rate 17 /min Jose Roberto Dunaway MD Work Phone: [facility] [employer] 04-17-2021 13:00-0500 SaO2% (BldA) [Mass fraction] 98 % Jose Roberto Dunaway MD Work Phone: [facility] [employer] 04-17-2021 13:00-0500 Systolic blood pressure 116 mm[Hg] Jose Roberto Dunaway MD Work Phone: [facility] [employer] 04-17-2021 10:00-0500 Body temperature 98.1 [degF] Jose Roberto Dunaway MD Work Phone: [facility] [employer] 04-16-2021 11:39-0500 Body height 172.7 cm Jose Roberto Dunaway MD Work Phone: [facility] [employer] 04-16-2021 11:39-0500 Body mass index (BMI) [Ratio] 23.57 kg/m2 Jose Roberto Dunaway MD Work Phone: [facility] [employer] 04-16-2021 11:39-0500 Body weight 70.31 kg Jose Roberto Dunaway MD Work Phone: [facility] [employer] 03-28-2021 08:30-0500 Body mass index (BMI) [Ratio] 24.02 kg/m2 Bernabe Rouse MD Work Phone: [facility] 03-28-2021 08:30-0500 Body weight 71.67 kg Bernabe Rouse MD Work Phone: [facility] 03-28-2021 08:30-0500 Diastolic blood pressure 86 mm[Hg] Bernabe Rouse MD Work Phone: [facility] 03-28-2021 08:30-0500 Heart rate 85 /min Bernabe Rouse MD Work Phone: [facility] 03-28-2021 08:30-0500 Systolic blood pressure 132 mm[Hg] Bernabe Rouse MD Work Phone: [facility] 10-18-2020 09:49-0400 Body height 172.7 cm Alessia Crockett CNP Work Phone: [facility] 10-18-2020 09:49-0400 Body mass index (BMI) [Ratio] 24.78 kg/m2 Alessia Crockett CNP Work Phone: [facility] 10-18-2020 09:49-0400 Body temperature 98.2 [degF] Alsesia Crockett CNP Work Phone: [facility] 10-18-2020 09:49-0400 Body weight 73.94 kg Alessia Crockett CNP Work Phone: [facility] 10-18-2020 09:49-0400 Diastolic blood pressure 93 mm[Hg] Alessia Crockett CNP Work Phone: [facility] 10-18-2020 09:49-0400 Heart rate 84 /min Alessia Crockett CNP Work Phone: [facility] 10-18-2020 09:49-0400 Systolic blood pressure 136 mm[Hg] Alessia Crockett CNP Work Phone: [facility] 11-09-2019 16:36-0400 Body Temperature 98.2 [degF] Bernabe Rouse [facility] 11-09-2019 16:36-0400 BP Diastolic 78 mm[Hg] Bernabe Rouse [facility] 11-09-2019 16:36-0400 BP Systolic 123 mm[Hg] Bernabe Rouse [facility] 11-09-2019 16:36-0400 Pulse (Heart Rate) 102 /min Bernabe Rouse [facility] 11-09-2019 16:36-0400 Pulse Oximetry 100 % Bernabe Rouse [facility] 11-09-2019 16:36-0400 Respiratory Rate 16 /min Bernabe Rouse [facility] 11-09-2019 06:06-0400 BMI (Body Mass Index) 23.26 kg/m2 Bernabe Rouse [facility] 11-09-2019 06:06-0400 Body weight 69.4 kg [facility] Rouse [facility] 11-09-2019 06:06-0400 Height 172.7 cm [facility] Rouse [facility] Encounters Encounter Date Encounter Type Care Provider Facility Start: 12-02-2023 End: 12-02-2023 ambulatory [facility] Start: 11-24-2023 End: 11-24-2023 ambulatory [facility] Start: 11-18-2023 End: 11-18-2023 [facility] Start: 11-13-2023 End: 11-13-2023 Postop follow up visit related to original px Bernabe oRuse MD Work Phone: [facility] Comment on above: Post-operative state (Primary Dx); Endometriosis determined by laparoscopy; Interstitial cystitis Start: 11-13-2023 End: 11-13-2023 ambulatory [facility] Start: 10-29-2023 End: 10-29-2023 ambulatory SANDRALEONIERosendo STELLADelores [facility] Start: 10-20-2023 End: 10-20-2023 Office outpatient visit 25 minutes John Yoder MD Work Phone: [facility] Preadmission Testing Comment on above: Endometriosis determ ined by laparoscopy (Primary Dx); Pre-op examination; Anxiety and depression; Bipolar affective disorder, remission status unspecified (HCC); Complication of anesthesia, initial encounter Start: 10-20-2023 End: 10-20-2023 Preprocedural examination done John Yoder MD Work Phone: [facility] Start: 10-20-2023 End: 10-24-2023 ambulatory [facility] Start: 10-20-2023 End: 10-24-2023 Encounter for other preprocedural examination [facility] Start: 10-20-2023 End: 10-20-2023 Clinical Support Selin Jang RN [facility] Comment on above: Pelvic pain in femal e (Primary Dx) Start: 09-12-2023 End: 09-12-2023 Phys/qhp telephone evaluation 21-30 min Bernabe Rouse MD Work Phone: [facility] Comment on above: Endometriosis determ ined by laparoscopy; Endometrioma of ovary; Interstitial cystitis Start: 09-12-2023 End: 09-12-2023 ambulatory ELENA COWAN [facility] Ambulatory Start: 08-19-2023 End: 08-23-2023 ambulatory EVITASIMON REYES [facility] Start: 08-12-2023 End: 08-12-2023 Office outpatient visit 25 minutes Evita Reyes [facility] Work Phone: [facility] Comment on above: Left ovarian cyst (P rimary Dx) Start: 08-12-2023 End: 08-12-2023 ambulatory [facility] Start: 08-01-2023 End: 08-01-2023 Orders Only Danni Lomax MA [facility] Comment on above: Lumbar radiculopathy (Primary Dx) Start: 08-01-2023 End: 08-01-2023 Office outpatient visit 15 minutes Jennifer Russ PA-C Work Phone: [facility] Comment on above: Lumbar radiculopathy , acute (Primary Dx) Start: 07-25-2023 End: 07-25-2023 ambulatory [facility] Start: 07-22-2023 End: 07-22-2023 ambulatory [facility] Start: 07-22-2023 End: 07-22-2023 ambulatory [facility] Start: 07-17-2023 Orders Only Yanelis Hahn MA [facility] Start: 07-16-2023 Orders Only Yanelis Hahn MA [facility] Comment on above: Lumbar radiculopathy (Primary Dx) Start: 07-14-2023 Orders Only Anabell Johansen RN [facility] Comment on above: Left hip pain (Prima ry Dx) Start: 07-09-2023 End: 07-09-2023 ambulatory ELENA COWAN [facility] Ambulatory Start: 07-09-2023 End: 07-09-2023 Postop follow up visit related to original px Glenys Cortés [employer] Work Phone: [facility] Comment on above: Lumbar radiculopathy (Primary Dx); Left hip pain Start: 06-11-2023 Orders Only Nicole Soto RN [facility] Start: 06-05-2023 End: 06-05-2023 Orders Only Yanelis Hahn MA [facility] Comment on above: Lumbar radiculopathy (Primary Dx) Start: 06-05-2023 End: 06-05-2023 Office outpatient visit 10 minutes Esmer Guzman [employer] Work Phone: [facility] Comment on above: S/P hysterectomy (Pr imary Dx); Endometriosis determined by laparoscopy; Constipation, unspecified constipation type Start: 06-05-2023 End: 06-05-2023 Postop follow up visit related to original px Jennifer Russ PA-C Work Phone: [facility] Comment on above: Lumbar radiculopathy (Primary Dx) Start: 04-30-2023 End: 05-01-2023 ambulatory JESSICA MEYERS JR. [facility] Start: 04-30-2023 End: 05-01-2023 Subsequent hospital visit by physician Jessica Meyers DO Work Phone: [facility] Surgical Short Stay Unit Start: 04-11-2023 Admission to [facility] Izabella George MA [facility] Comment on above: Lumbar radiculopathy (Primary Dx) Start: 04-08-2023 End: 04-08-2023 Office outpatient new 45 minutes Elena Cowan DO Work Phone: [facility] Comment on above: Degeneration of lumb ar or lumbosacral intervertebral disc (Primary Dx) Start: 04-08-2023 End: 04-08-2023 ambulatory JESSICA MEYERS JR. [facility] Ambulatory Start: 04-07-2023 Orders Only Calli camp PA-C Work Phone: [facility] Comment on above: Degenerative disc di sease, lumbar (Primary Dx) Start: 03-25-2023 ambulatory JESSICA QUISPE JR. [facility] Ambulatory Start: 02-28-2023 End: 02-28-2023 ambulatory PROVIDER NOT IN SYSTEM [facility] Start: 02-25-2023 Transcribe Orders Elena Cowan DO Work Phone: [facility] Comment on above: Lumbar radiculopathy (Primary Dx); Herniated lumbar intervertebral disc Start: 05-02-2022 End: 05-02-2022 Postop follow up visit related to original px Bernabe Rouse MD Work Phone: [facility] Comment on above: Postop check (Primar y Dx); Endometriosis determined by laparoscopy; Interstitial cystitis Start: 04-09-2022 End: 04-09-2022 Clinical Support Selin Jang RN [facility] Comment on above: Pelvic pain in femal e (Primary Dx) Start: 04-09-2022 End: 04-09-2022 Office consultation new/estab patient 60 min Bernabe Rouse MD Work Phone: [facility] Preadmission Testing Comment on above: Preop examination (P rimary Dx); Endometriosis; Preop cardiovascular exam; Elevated blood pressure reading without diagnosis of hypertension; Gastroesophageal reflux disease without esophagitis; Interstitial cystitis; History of lumbar laminectomy Start: 04-09-2022 End: 04-09-2022 Patient encounter status Bernabe Rouse MD Work Phone: [facility] Preadmission Testing Start: 04-09-2022 End: 04-09-2022 Preprocedural examination done Bernabe Rouse MD Work Phone: [facility] Preadmission Testing Start: 10-10-2021 Refill India Fitzpatrick RN [facility] Start: 10-08-2021 End: 10-08-2021 Office outpatient visit 25 minutes Bernabe Rouse MD Work Phone: [facility] Comment on above: Endometriosis Start: 07-02-2021 End: 07-02-2021 Patient encounter procedure Bernabe Rouse MD Work Phone: [facility] Comment on above: Pelvic pain in femal e (Primary Dx); Cyst of ovary, unspecified laterality Start: 04-27-2021 Refill Bernabe Rouse MD Work Phone: [facility] Start: 04-17-2021 End: 04-17-2021 [facility] Start: 04-17-2021 End: 04-17-2021 Subsequent hospital visit by physician Jose Roberto Dunaway MD Work Phone: [email or web address] Start: 04-17-2021 End: 04-17-2021 ambulatory ELENA A [facility] Start: 04-17-2021 End: 04-17-2021 Subsequent hospital visit by physician Jluis Neffid19 Pat Screening Schedule [facility] PRE ADMIT Comment on above: Arrived Start: 04-02-2021 End: 04-02-2021 Patient encounter procedure Bernabe Rouse MD Work Phone: [facility] Comment on above: Pelvic pain in femal e (Primary Dx) Start: 03-28-2021 End: 03-28-2021 Office outpatient visit 25 minutes Bernabe Rouse MD Work Phone: [facility] Comment on above: Endometriosis Start: 02-21-2021 End: 02-21-2021 Subsequent hospital visit by physician Theresa [facility] Nelli Work Phone: Radiology Comment on above: Pain of right hand [ M79.641] Start: 10-18-2020 End: 10-18-2020 Patient encounter procedure Bernabe Rouse MD Work Phone: [facility] Comment on above: Endometriosis (Prima ry Dx); Pelvic pain in female Start: 10-18-2020 End: 10-18-2020 Office outpatient visit 15 minutes Alessia Crockett CNP Work Phone: [facility] Comment on above: Endometriosis (Prima ry Dx) Start: 02-23-2020 End: 02-23-2020 Phys/qhp telephone evaluation 5-10 min Bernabe Rouse Work Phone: [facility] Comment on above: Endometriosis Start: 11-09-2019 End: 11-09-2019 Subsequent hospital visit by physician Bernabe Rouse Work Phone: [facility] Surgical Short Stay Unit Start: 05-05-2018 End: 05-05-2018 Patient encounter procedure [facility] Start: 04-28-2018 Encounter for other preprocedural examination [facility] Start: 04-27-2018 End: 04-28-2018 Patient encounter procedure [facility] Procedures Date Procedure Procedure Detail Performing Clinician Start: 11-13-2023 Culture bacterial quanttative colony count urine Bernabe Rouse MD Work Phone: Start: 10-29-2023 H/O: surgery S/P robot-assisted surgical procedure Bernabe Rouse MD Work Phone: Start: 10-20-2023 Blood count complete automated Bernabe Rouse MD Work Phone: Start: 10-20-2023 Blood typing serologic abo Bernabe Rouse MD Work Phone: Start: 04-30-2023 XR and RF Chest PA and Lateral and Views Jessica Meyers DO Work Phone: Start: 04-30-2023 End: 04-30-2023 DISCECTOMY LUMBAR SINGLE LEVEL Jessica Meyers DO Work Phone: Start: 04-30-2023 Glucose measurement Jessica Meyers DO Work Phone: Start: 04-16-2022 H/O: hysterectomy S/P hysterectomy Bernabe Rouse MD Work Phone: Start: 07-02-2021 Us transvaginal Bernabe Rouse MD Work Phone: Start: 04-17-2021 COVID-19, RAPID Marcus Horne MD Work Phone: Start: 04-02-2021 Us transvaginal Bernabe Rouse MD Work Phone: Start: 02-21-2021 Radex hand minimum 3 views 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.[employer] Work Phone: Start: 10-18-2020 Us transvaginvic Rouse MD Work Phone: Start: 11-09-2019 Complete blood count (hemogram) panel - Blood by Automated count Bernabe Rouse Work Phone: Start: 11-09-2019 Blood group typing Bernabe Rouse Work Phone: Start: 11-09-2019 Blood type and Indirect antibody screen panel - Blood Bernabe Rouse Work Phone: Start: 11-09-2019 Choriogonadotropin ( test) [Presence] in Urine Bernabe Rouse Work Phone: Start: 11-09-2019 Glucose [Mass/volume] in Blood Bernabe Rouse Work Phone: H/O: hysterectomy S/P hysterectomy Cather hima Bentonolga [employer] Work Phone: Plan of Treatment Date Care Activity Detail Author Start: 02-13-2024 End: 02-13-2024 Patient encounter procedure 02/13/2024 9:50 AM EST Office Visit [facility] [address] [facility] [place] [place] [address] Evita Reyes, [employer] [address] [facility] [place] [place] [address] [facility] Start: 12-02-2023 End: 12-02-2023 Patient encounter procedure 12/02/2023 11:15 AM EDT Office Visit [facility] [id number] [address] [place] [address] Jessica Meyers Jr., DO [address] [place] [address] [facility] Neuro[facility] Start: 11-24-2023 End: 11-24-2023 Patient encounter procedure [facility] Start: 11-18-2023 End: 11-18-2023 Patient encounter procedure 11/18/2023 12:00 PM EDT Appointment [facility] CT Scan [address] [place] [address] Elena Cowan, [address] [facility] [place] [address] [facility] [address] Scan Start: 11-13-2023 End: 11-13-2023 Patient encounter procedure [facility] Start: 10-29-2023 End: 10-29-2023 Admission to same day surgery center 10/29/2023 7:10 AM EDT - 10/29/2023 9:50 AM EDT Surgery [facility]iop [address] [place] [address] Bernabe Rouse MD [address] [place] [address] ROBOTIC ASSISTED LAPAROSCOPIC EXCISION OF ENDOMETRIOSIS, LEFT OVARIAN CYSTECTOMY, POSSIBLE OOPHORECTOMY, LYSIS OF ADHESIONS, [facility] Comment on above: ROBOTIC ASSISTED LAP AROSCOPIC EXCISION OF ENDOMETRIOSIS, LEFT OVARIAN CYSTECTOMY, POSSIBLE OOPHORECTOMY, LYSIS OF ADHESIONS, Start: 10-29-2023 End: 10-29-2023 Laps abd prtm&omentum dx w/wo spec br/wa spx [facility] Start: 10-29-2023 Subsequent hospital visit by physician 10/29/2023 7:10 AM EDT Hospital Encounter [facility] [address] [place] [address] Bernabe Rouse MD [address] [place] [address] [facility] Start: 10-20-2023 End: 10-20-2023 Office outpatient visit 25 minutes 10/20/2023 1:30 PM EDT Office Visit [facility] Preadmission Testing [address] [facility] [address] [place] [address] John Yoder MD [facility] [address] [place] [address] Reuben Muhammad MD [address] [facility] [address] [place] [address] Endometriosis determined by laparoscopy (Primary Dx); Pre-op examination; Anxiety and depression; Bipolar affective disorder, remission status unspecified (HCC); Complication of anesthesia, initial encounter Discharge Disposition: Home [facility] Preadmission Testing Comment on above: Endometriosis determ ined by laparoscopy (Primary Dx); Pre-op examination; Anxiety and depression; Bipolar affective disorder, remission status unspecified (HCC); Complication of anesthesia, initial encounter Start: 10-20-2023 End: 10-20-2023 Patient encounter procedure 10/20/2023 1:30 PM EDT Office Visit [facility] Preadmission Testing [address] [facility] [address] [place] [address] [facility]readmission Testing Start: 10-20-2023 End: 10-20-2023 Clinical Support 10/20/2023 9:20 AM EDT Clinical Support [facility] Gyne[facility] [address] [facility] [place] [address] [employer]pg 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 Gelacio, Vi [facility] Start: 10-12-2023 Covid-19 Vaccine ( season) Covid-19 Vaccine ( season) [facility] Start: 10-12-2023 COVID-19 Vaccine ( season) COVID-19 Vaccine ( season) [facility] Start: 10-12-2023 Influenza vaccination [facility] Start: 10-01-2023 End: 10-01-2023 Patient encounter procedure 10/01/2023 8:00 AM EDT Office Visit [facility] [address] Medical Office Building, 2nd [place] [address] Jennifer Russ PA-C [address] [place] [address] Delvin Nguyen MD [facility] [address] [facility] 2nd [place] [address] [facility] Start: 08-22-2023 End: 08-22-2023 Patient encounter procedure 08/22/2023 2:00 PM EDT Office Visit [facility] Gyne[facility] [address] [place] [address] Rachel [place] MD [address] [place] [address] [facility] Start: 08-01-2023 End: 08-01-2023 Follow-up encounter 08/01/2023 8:30 AM EDT Follow-Up [facility] Neuro[facility] [address] [place] [address] Jennifer Russ PA-C [address] [place] [address] [facility] Start: 07-25-2023 End: 07-25-2023 Patient encounter procedure 07/25/2023 4:45 PM EDT Appointment [facility] [address] [place] [address] Glenys Cortés, TECHNICIAN [employer] [address] [place] [address] [facility] Start: 07-09-2023 End: 07-09-2023 Follow-up encounter 07/09/2023 3:00 PM EDT Follow-Up [facility] [address] [place] [address] Marques Kwok, BORA [address] [facility] [address] [place] [address] [facility] Start: 06-05-2023 End: 06-05-2023 Follow-up encounter 06/05/2023 9:15 AM EDT Follow-Up [facility] [address] [facility] [address] [place] [id number] Jessica Meyers Jr., DO [address] [facility] [address] [place] [address] [facility] Start: 04-30-2023 Subsequent hospital visit by physician 04/30/2023 Hospital Encounter [facility] [address] [place] [address] Jessica Meyers Jr., DO [address] [place] [address] [facility] Start: 11-29-2022 Tetanus vaccination Tetanus: Every 1 0yrs [facility] Start: 10-11-2022 COVID-19 Vaccine ( season) COVID-19 Vaccine ( season) [facility] Start: 10-11-2022 Influenza vaccination Sequenti al Influenza Vaccine (#1) [facility] Start: 08-08-2022 End: 08-08-2022 Patient encounter procedure 08/08/2022 Office Visit Gynecology Esmer Guzman, TECHNICIAN [employer] [address] [facility] [facility] [place] [address] [facility] Start: 05-02-2022 End: 05-02-2022 Patient encounter procedure 05/02/2022 Office Visit Gynecology Bernabe Rouse MD [address] [address] 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 Start: 04-16-2022 End: 04-16-2022 HYSTERECTOMY TOTAL ROBOTIC XI HYSTERECTOMY TOTAL ROBOTIC XI Endometriosis 04/16/2022 11:20 AM EST [facility] Start: 04-16-2022 Subsequent hospital visit by physician 04/16/2022 Hospital Encounter Bernabe Rouse MD [address] [place] [address] [facility] Start: 10-11-2021 Influenza vaccination [facility] Start: 10-08-2021 End: 10-08-2021 Patient encounter procedure 10/08/2021 Office Visit Gynecology Bernabe Rouse MD [address] [place] [address] [facility] Gynecology Start: 07-02-2021 End: 07-02-2021 Patient encounter procedure 07/02/2021 Office Visit Gynecology Bernabe Rouse MD [address] [place] [address] [facility] Gyne[facility] Start: 04-25-2021 End: 04-25-2021 Patient encounter procedure 04/25/2021 Office Visit Otolaryngology Jose Roberto Dunaway MD [address] [place] [address] [facility] Start: 04-17-2021 End: 04-17-2021 Tonsillectomy primary/secondary age 10/> TONSILLECTOMY chronic tonsilitis, dysphagia 04/17/2021 8:54 AM EST [facility] Start: 04-02-2021 End: 04-02-2021 Patient encounter procedure 04/02/2021 Office Visit Gynecology [facility] Gy[facility] Start: 10-11-2020 Influenza vaccination [facility] Start: 06-15-2020 COVID-19 Vaccine (2 - Pfizer 2-dose series) COVID-19 Vaccine (2 - Pfizer 2-dose series) [facility] Start: 06-15-2020 COVID-19 Vaccine (2 - Pfizer 3-dose series) COVID-19 Vaccine (2 - Pfizer 3-dose series) [facility] Start: 06-15-2020 COVID-19 Vaccine (2 - Pfizer series) COVID-19 Vaccine (2 - Pfizer series) [facility] Start: 04-24-2020 End: 04-24-2020 Office Visit 04/24/2020 Office Visit Gynecology Bernabe Rouse MD [address] [place] [address] [phone] [facility] Gy[facility] Start: 11-24-2019 End: 11-24-2019 Follow-Up 11/24/2019 Follow-Up Gynecology Bernabe Rouse MD [address] [place] [address] [phone] [facility] Start: 10-12-2019 Influenza vaccinatio n given Sequential Influenza Vaccine (#1) [facility] Start: 2018 Screening for malign ant neoplasm of cervix [facility] Start: 2009 Screening for malign ant neoplasm of cervix [facility] Start: 11-05-2007 DTaP/Tdap/Td vaccine (1 - Tdap) DTaP/Tdap/Td vaccine (1 - Tdap) [facility] Start: 11-05-2007 Hepatitis B Vaccine (1 of 3 - 19+ 3-dose series) Hepatitis B Vaccine (1 of 3 - 19+ 3-dose series) [facility] Start: 11-05-2007 Urine microalbumin profile DTaP,Tdap,Td Vaccine (1 - Tdap) [facility] Start: 2006 Anxiety Screening Anxiety Screening [facility] Start: 2006 Depression Screening Depression Scre ening [facility] Start: 2006 Hepatitis C antibody , confirmatory test Hepatitis C Screening [facility] Start: 2006 Hepatitis C screening Hepatitis C [facility] Start: 2006 HIV screening HIV Screening [facility] Start: 11-05-2003 HIV screening [facility] Start: 2000 Adolescent depressio n screening assessment Depression Screening (PHQ9) [facility] Start: 2000 Depression Screen Depression Screen [facility] Start: 2000 Depression screening using PHQ-9 (Patient Health Questionnaire 9) score [facility] Start: 11-05-1991 History and physical examination, annual for health maintenance Wellness Visit [facility] Start: 1989 Varicella vaccine (1 of 2 - 2-dose childhood series) Varicella vaccine (1 of 2 - 2-dose childhood series) [facility] Start: 1988 Hepatitis C screening Hepatitis C [facility] Start: 1988 Screening for malign ant neoplasm of cervix Pap Smear [facility] Start: 1988 Tetanus vaccination Tetanus: Every 1 0yrs [facility] End: 08-11-2024 AFP TUMOR MARKER AFP tumor marker Lab Routine Left ovarian cyst 1 Occurrences starting 08/12/2023 until 08/11/2024 [facility] Comment on above: 1 Occurrences starti ng 08/12/2023 until 08/11/2024 Blood type and Indir ect antibody screen panel - Blood Type and Screen Blood Bank Routine Pre-op examination 10/20/2023 11:47 AM EDT [facility] Work Phone: End: 08-11-2024 CA 125 measurement CA 125 Lab Routine Left ovarian cyst 1 Occurrences starting 08/12/2023 until 08/11/2024 [facility] Comment on above: 1 Occurrences starti ng 08/12/2023 until 08/11/2024 End: 08-11-2024 Cancer antigen 19-9 measurement CA 19-9 Lab Routine Left ovarian cyst 1 Occurrences starting 08/12/2023 until 08/11/2024 [facility] Work Phone: Comment on above: 1 Occurrences starti ng 08/12/2023 until 08/11/2024 CBC panel - Blood by Automated count CBC Lab Routine Pre-op examination 10/20/2023 11:47 AM EDT [facility] Continuous pulse oximetry Pulse oximetry, continuous Respiratory Care Routine Every 4hr until discontinued starting 04/17/2021 [employer] Phone: Comment on above: Every 4hr until disc ontinued starting 04/17/2021 DISCECTOMY LUMBAR SINGLE LEVEL DISCECTOMY LUMBAR SINGLE LEVEL Lumbar radiculopathy [facility] HYSTERECTOMY TOTAL ROBOTIC XI HYSTERECTOMY TOTAL ROBOTIC XI Endometriosis [facility] End: 07-08-2024 MR Lumbar spine WO contrast MR Lumbar Spine Without Contrast Imaging Routine Lumbar radiculopathy 1 Occurrences starting 07/09/2023 until 07/08/2024 [facility] Comment on above: 1 Occurrences starti ng 07/09/2023 until 07/08/2024 Oxygen therapy [[facility] Data Set] Initiate Oxygen Therapy Protocol Respiratory Care Routine Daily until discontinued starting 04/17/2021 [employer] Phone: Comment on above: Daily until disconti nued starting 04/17/2021 Procedure on tissue specimen [facility] Comment on above: Release Upon Orderin g for 1 Occurrences starting 11/09/2019, 1 completed Surgical Pathology Surgical Path ology Lab Routine Release Upon Ordering for 1 Occurrences starting 04/17/2021 [employer] Phone: Comment on above: Release Upon Orderin g for 1 Occurrences starting 04/17/2021 End: 04-17-2021 SURGICAL PATHOLOGY REPORT SURGICAL PATHOLOGY REPORT Lab Routine Once for 1 Occurrences starting 04/17/2021 until 04/17/2021 [facility] Work Phone: Comment on above: Once for 1 Occurrenc es starting 04/17/2021 until 04/17/2021 End: 07-13-2024 XR Hip - left 2 Views XR Hip Left 2-3 Views (Routine) Imaging Routine Left hip pain 1 Occurrences starting 07/14/2023 until 07/13/2024 [facility] Work Phone: Comment on above: 1 Occurrences starti ng 07/14/2023 until 07/13/2024 End: 07-08-2024 XR Hip - left Views XR Hip Left 4+ Views Imaging Routine Lumbar radiculopathy 1 Occurrences starting 07/09/2023 until 07/08/2024 [facility] Work Phone: Comment on above: 1 Occurrences starti ng 07/09/2023 until 07/08/2024 End: 04-07-2024 XR Lumbar spine 2 or 3 Views XR Lumbar Spine Flex / Ext 2-3 Views Imaging Routine Degenerative disc disease, lumbar 1 Occurrences starting 04/07/2023 until 04/07/2024 [facility] Work Phone: Comment on above: 1 Occurrences starti ng 04/07/2023 until 04/07/2024 Immunizations Immunization Date Immunization Notes Care Provider Mariano anna 05-25-2020 Pfizer SARS-CoV-2 Vaccination Bernabe Rouse MD Work Phone: [facility] 10-22-2018 influenza virus vacc ine, unspecified formulation Yanelis Hahn MA [facility] Payers Date Payer Category Payer Unknown [id number] 2021 Unknown [id number] [id number] 2020 Unknown [id number] 2019 Unknown ESTRELLA GILL/PREF/HMO/PPO [id number] 2019-Present [id number] [id number] 2019 Unknown [id number] 1988 Unknown [id number] 2.16.840.1.641088.3.579.2.598 1988 Unknown [id number] 2.16.840.1.439126.3.579.2.598 1988 Unknown [id number] 2.16.840.1.522663.3.579.2.174 1988 Unknown [id number] 2.16.840.1.203586.3.579.2.174 1988 Unknown [id number] 2.16.840.1.230050.3.579.2.902 1988 Unknown [id number] 2.16.840.1.140341.3.579.2.902 1988 Unknown [id number] 2.16.840.1.818385.3.579.2.902 1988 Unknown [id number] 2.16.840.1.458545.3.579.2.900 1988 Unknown [id number] 2.16.840.1.991658.3.579.2.900 1988 Unknown [id number] 2.16.840.1.330906.3.579.2.900 1988 Unknown [id number] 2.16.840.1.494538.3.579.2.900 1988 Unknown [id number] 2.16.840.1.717598.3.579.2.900 1988 Unknown [id number] 2.16.840.1.259362.3.579.2.903 1988 Unknown [id number] 2.16.840.1.604871.3.579.2.903 1988 Unknown [id number] 2.16.840.1.281558.3.579.2.903 1988 Unknown [id number] 2.16.840.1.476985.3.579.2.903 1988 Unknown [id number] 2.16.840.1.940303.3.579.2.903 1988 Unknown [id number] 2.16.840.1.640260.3.579.2.903 1988 Unknown [id number] 2.16.840.1.861984.3.579.2.903 1988 Unknown [id number] 2.16.840.1.504451.3.579.2.90 1988 Unknown [id number] 2.16.840.1.863319.3.579.2.903 1988 Unknown [id number] 2.16.840.1.735497.3.579.2.903 1988 Unknown [id number] 2.16.840.1.918086.3.579.2.903 1988 Unknown [id number] 2.16.840.1.809967.3.579.2.903 1988 Unknown [id number] 2.16.840.1.855959.3.579.2.903 1988 Unknown [id number] 2.16.840.1.663878.3.579.2.903 1988 Unknown [id number] 2.16.840.1.575642.3.579.2.903 1959 Self-pay [id number] Unknown [id number] [id number] [id number] Social History Date Type Detail Facility Start: 11-09-2019 End: 10-20-2023 Tobacco smoking status ILIS Never smoker [facility] Start: 11-09-2019 End: 10-20-2023 Tobacco use and exposure Never used [facility] Start: 11-09-2019 End: 11-13-2023 Alcohol intake Ex-drinker (finding) [facility] Start: 1990 Sex Assigned At Not on file [facility] Start: 02-25-2021 End: 05-02-2022 Exposure to SARS-CoV-2 (event) Not sure [facility] Start: 09-13-2019 End: 11-13-2023 Cigarette pack-years [facility] Start: 04-09-2022 End: 09-28-2023 Alcohol intake Current drinker of alcohol (finding) [facility] Start: 04-09-2022 Alcohol Comment yearly ,[facility]olidays [facility] Start: 05-04-2022 End: 11-13-2023 Tobacco use panel [facility] Start: 09-13-2019 Gender identity Identifies as female gender (finding) [facility] Start: 09-13-2019 Sexual orientation Heterosexual (fin rey) [facility] Start: 10-20-2023 Tobacco Comment None [facility] Start: 10-20-2023 Alcohol Comment Only on Holidays [facility] Medical Equipment Procedure Code Equipment Code Equipment Origin al Text Equipment Identifier Dates Cath 5in Expansi on On-Q Silversoaker - [id number] Start: 11-09-2019 Comment on above: Description: OR Meron ge ONLY Pump 100 X 2ml/H r Ball 2 Day Ext Release On-Q - [id number] Start: 11-09-2019 Comment on above: Description: OR Meron ge ONLY Kit 10ml Tisseel Frozen W/ Prima Syringe - [id number] Start: 11-09-2019 Comment on above: Description: 10ml us ed Barrier 5 X 6in Adhesion Tc 7 Interceed - [id number] Start: 11-09-2019 Barrier 5 X 6in Adhesion Tc 7 Interceed - [id number], [id number] FDA Start: 11-09-2019 Barrier 5 X 6in Adhesion Tc 7 Interceed - [id number] ()[id number], [id number] FDA Start: 11-09-2019 Cath 5in Expansi on On-Q Silversoaker - [id number] Start: 04-16-2022 Barrier 5 X 6in Adhesion Tc 7 Interceed - [id number] ()[id number], [id number] FDA Start: 04-16-2022 Pump 100 X 2ml/H r Ball 2 Day Ext Release On-Q - [id number] Start: 04-16-2022 Sealant 10ml Hemostatic Matrix Fast Prep Floseal W/Recothrom - [id number] ()[id number], [id number]_[facility] FDA Start: 04-30-2023 Hemostat 8 X 12. 5cm X 2mm Surgifoam Gelatin Sponge Cs/6 - [id number] ()[id number], [id number]_[facility] FDA Start: 04-30-2023 Cath 5in Expansi on On-Q Silversoaker - [id number] ()[id number], [id number], [id number]_[facility] FDA Start: 10-29-2023 Barrier 5 X 6in Adhesion Tc 7 Interceed - [id number] ()[id number], [id number] FDA Start: 10-29-2023 Pump 600ml Dual On-Q Mzmrow-H-Yxet - [id number] Start: 10-29-2023 Hemostat 3g Powd er Absorbable Surgicel - [id number] Start: 10-29-2023 Clinical Notes 07-11-2020 to 12-02-2023 Bernabe Rouse MD - 11/22/2023 9:44 PM Bernabe Phillips MD - 11/13/2023 9:19 AM EDTAssessment & Plan Note - Bernabe Rouse MD - 11/13/2023 9:37 AM EDT Note Date & Type Note Facility 12-02-2023 Note Neurosurgical Establ ished LIVE Visit [facility] 12/02/23 Dr. Jessica Meyers DO FACOS [address] [facility], [address] [place] [id number] [phone] Patient: Caroline Guillen, : 1990, Physicians: Elena Cowan DO (Family); No ref. provider found (Referring) Dear Elena Cowan DO, Today, I had the pleasure of seeing Caroline Guillen in follow up. History of Present Illness: Caroline is s/p Redo Left L5-6 discectomy with foraminotomy on 04/30/23. Caroline follows up with updated lumbar MRI as well as recent EMG due to ongoing left lower extremity symptoms. Today, patient continues to have Left lower extremity radiating achiness over the posterolateral aspect of left thigh and chronic low back pain. Denies right lower extremity symptomology. Denies bilateral lower extremities weakness. Patient also mentions chronic neck pain associated with headaches and intermittent left arm paresthesia. Denies right upper extremity radiating pain or weakness. Denies dexterity difficulty or balance impairment. I have reviewed today's discussion of symptoms in the RN's note as documented in this encounter, pertinent medical, surgical, social and family history, current medication list and allergies, and ROS. Physical and Neurological Examination: Alert, awake, oriented x3 CN grossly intact Presents ambulatory, gait intact Strength: 5/5 bilaterally in HF, KE, KF, PF, DF, ankle inversion, ankle eversion Sensation: decrease sensation over left anterior calf Negative Rabago sign bilaterally Negative Lhermitte sign Negative Spurling bilaterally Testing and Labs: I have reviewed the patient's neurological imaging studies to date, the pertinent studies listed below. I have independently reviewed each, as well as the radiologist interpretation thereof if available, and my interpretations are as below. These findings were reviewed and discussed with Caroline during this visit. Recent MR lumbar reviewed. Postoperative changes noted, she has 6 lumbar vertebrae for counting purposes. At L5-6 she has postoperative changes with some what appears to be scarring in the left recess. The nerve roots appear decompressed, no significant stenosis. She does have advanced degenerative changes of the disc space. . Impression/Plan: I do not see anything surgical in the lumbar spine. She may benefit from additional therapy and pain management consultation to discuss if she would be a candidate for stimulator. I would like for her to do physical therapy for cervical spine and shoulders, if needed we will order MRIs of the cervical spine and shoulder. This is likely due to possible scar formation however I do not see anything surgical. EMG was also completed which did not show an active nerve compression. As always, I greatly appreciate the opportunity to take part in Caroline Guillen's care. Please don't hesitate to call with any questions or concerns. If I or anyone else at [facility] can be of further service to you or your staff, please call on us. Cordially, Jessica Meyers DO, [facility]AC[employer] AUTHENTICATED BY JESSICA MEYERS JR., ON 12/02/2023 12:53:02 [facility] 11-24-2023 Note [facility] - Neurology [address] [place] [address] 2nd [place] [address] Nerve Conduction & EMG Report Patient: Caroline Guillen Sex: Female Date of : 1990 Visit Date: 11/24/2023 8:40 AM Age: 33 Years Examining MD: Delvin Nguyen MD Referred by: Jennifer Russ PA-C Temperature: 33.1 Current Height: 5 feet 8 inch Referred for: EMG:LLE numbness and paresthesias since 2018, Hx of back surgery. No DM. Plan: The study was design to evaluate for entrapment neuropathy, polyneuropathy, radiculopathy, or plexopathy. Procedure indication, risk, complications, side effects and alternatives were explained. Patient agreed to proceed with verbal consent. Patient was instructed to clean the puncture site with soap and water and put some ice pack for bruising. Impression: There is NO clear electrodiagnostic evidence of a left lumbosacral radiculopathy, plexopathy, or diffuse sensorimotor polyneuropathy at this time. EMG Summary: The left peroneal and tibial motor nerve conduction studies were normal. The left sural and superficial peroneal sensory nerve conduction studies were also normal. The left H reflex was normal. The left medial and lateral plantar sensory nerve conduction studies were normal. Needle EMG of the muscle tested showed no abnormal spontaneous activity. Normal motor unit action potentials and recruitment patterns were seen. Delvin Nguyen MD Diplomate, ABPN, NBPAS Clinical Neurophysiology, Neurology, Vascular Neurology and Sleep Medicine [place], [place] [phone] Motor NCS Nerve / Sites Muscle Latency Amplitude Distance Velocity ms mV cm m/s L Deep peroneal (Fibular) - EDB Ankle EDB 6.44 3.8 8.5 Fib Head EDB 13.31 3.3 33 48.0 Knee EDB 14.77 3.0 6 41.1 L Tibial - AH Ankle AH 4.48 12.7 8 Knee AH 13.10 8.8 42 48.7 Sensory NCS Nerve / Sites Peak Amp Amp.2-3 Distance Velocity d Lat.2 ms V V cm m/s ms L Sural - Lat Mall Calf 4.38 11.5 15.1 14 40 L Superficial peroneal - Ankle Lat leg 2.90 17.4 0.43 14 72 L Medial plantar, Lateral plantar - Ankle (Medial, lateral sole) Medial plantar Sole 3.40 1.1 2.9 12 45 Lateral plantar Sole 4.29 2.1 2.5 14 43 Medial plantar Sole - Lateral plantar Sole -0.90 H Reflex Nerve H Lat ms L Tibial - Soleus 31.25 EMG Summary Table Spontaneous Activity Amplitude Duration Recruitment Polyphasia Comment Muscle Ins Act Fib PSW Fasc - - - - - L. Vastus lateralis Normal 0 0 0 Normal Normal Normal Normal Normal L. Semitendinosus Normal 0 0 0 Normal Normal Normal Normal Normal L. Tibialis anterior Normal 0 0 0 Normal Normal Normal Normal Normal L. Gastrocnemius (Medial head) Normal 0 0 0 Normal Normal Normal Normal Normal L. Abductor hallucis Normal 0 0 0 Normal Normal Normal Normal Normal L. Lumbar paraspinals Normal 0 0 0 Normal Normal Normal Normal Normal AUTHENTICATED BY DELVIN NGUYEN, ON 11/24/2023 08:57:34 [facility] 11-22-2023 History of Present illness Narrative Notify the patient that her urine culture was negative for a urinary tract infection. POST-OPERATIVE VISIT Surgery: Robotic Assisted Laparoscopic Excision Of Endometriosis, Left Ovarian Cystectomy, Right Oophorectomy, Right Partial Ureterolysis, Extensive Lysis Of Adhesions, and Cystoscopy Surgery Date: 10/29/2023 Surgeon: Bernabe Rouse MD HPI: Caroline Guillen is a 33 y.o. yo female now 15 days post. She presents today for her postoperative visit. Post-op (Pt presents today for a post op visit. Pt had an excision, left ovary cystectomy and right oophrectomy done on 10/29/23. Pt states she does not have any concerns.) She reports doing well since surgery and is well and without fevers, chills, CP, SOB, chest palpitations, severe abdominal or pelvic pain, nausea, vomiting, bladder or bowel issues. Her port site incisions have healed well. She denies heavy vaginal bleeding. Much better, approximately 60% less pain. Occasional lightning crotch. ROS: Negative x 10 systems reviewed except as noted in the HPI. All past medical, surgical, social, family, allergy, and medication histories have been reviewed and updated in Epic charting. Physical Exam: Physical Exam Constitutional: Appearance: Normal appearance. She is well-developed. Interventions: Face mask in place. HENT: Head: Normocephalic and atraumatic. Cardiovascular: Rate and Rhythm: Normal rate. Pulmonary: Effort: Pulmonary effort is normal. Abdominal: General: A surgical scar is present. Palpations: Abdomen is soft. Tenderness: There is no abdominal tenderness. Comments: Incisions healing well. Musculoskeletal: Cervical back: Normal range of motion and neck supple. Neurological: Mental Status: She is alert and oriented to person, place, and time. Skin: General: Skin is warm and dry. Psychiatric: Mood and Affect: Mood and affect normal. Thought Content: Thought content normal. Judgment: Judgment normal. Vitals and nursing note reviewed. Assessment and Plan: Problem List Items Addressed This Visit Endometriosis determined by laparoscopy Pt advised on surgical findings. Discussed relevant pathology. Surgical images reviewed and copies were given to the patient. Incision sites examined; dry, intact, and well approximated. Advised pt. of Scar Away and mechanical massage to reduce scar formation. Findings within normal limits. Discussed switching ibuprofen to Naprosyn or Aleve for continued pain management, reduction of chronic inflammation and help with fatigue symptoms. Explained occasional pain likely due to her body recovering. Counseled pt tissue damage takes about 6-8 weeks to heal. Pt instructed to use lubrication with intercourse once her body has healed and she is advised to manage the process. Discussed she is healing appropriately and may gradually return to all other activities of daily living as tolerated. Patient may return to all activities as tolerated. She knows to call the office if any new concerns arise. All questions answered to satisfaction. Interstitial cystitis Patient advised on symptomology of interstitial cystitis (chronic bladder pain syndrome). Advised on dietary and lifestyle changes. Reduction of caffeine, citrus and tomatoes. Advised on the use of amitriptyline and hydroxyzine. Discussed the risks, benefits, indications, side effects, and alternatives of these medications. Advised on use of Elmiron. Discussed the potential risk of visual changes with long-term use. Advised on outpatient bladder instillations. Advised on undergoing 6 sessions 2 weeks apart each for optimal therapeutic response. Advised on intra-operative hydro-distention. Advised that in general it last approximately 3 to 9 months which is a time she should spend with lifestyle changes. Patient advised on starting Elmiron. Counseled on seeing an biomedical equipment technician/vp home health for yearly visual exams Relevant Medications pentosan polysulfate (Elmiron) 100 mg capsule Other Visit Diagnoses Post-operative state - Primary Relevant Orders Urine Aerobic Culture Urinalysis Return in about 3 months (around 02/13/2024) for with an JUNO. Bernabe Rouse MD documented in this encounter [facility] 11-22-2023 Note Notify the patient t hat her urine culture was negative for a urinary tract infection. AUTHENTICATED BY BERNABE ROUSE, ON 11/22/2023 21:44:00 [facility] 11-13-2023 Evaluation + Plan note Associated Problem(s): Endometriosis determined by laparoscopy Pt advised on surgical findings. Discussed relevant pathology. Surgical images reviewed and copies were given to the patient. Incision sites examined; dry, intact, and well approximated. Advised pt. of Scar Away and mechanical massage to reduce scar formation. Findings within normal limits. Discussed switching ibuprofen to Naprosyn or Aleve for continued pain management, reduction of chronic inflammation and help with fatigue symptoms. Explained occasional pain likely due to her body recovering. Counseled pt tissue damage takes about 6-8 weeks to heal. Pt instructed to use lubrication with intercourse once her body has healed and she is advised to manage the process. Discussed she is healing appropriately and may gradually return to all other activities of daily living as tolerated. Patient may return to all activities as tolerated. She knows to call the office if any new concerns arise. All questions answered to satisfaction. [facility] 11-13-2023 Miscellaneous Notes Associated Problem(s): Endometriosis determined by laparoscopy Pt advised on surgical findings. Discussed relevant pathology. Surgical images reviewed and copies were given to the patient. Incision sites examined; dry, intact, and well approximated. Advised pt. of Scar Away and mechanical massage to reduce scar formation. Findings within normal limits. Discussed switching ibuprofen to Naprosyn or Aleve for continued pain management, reduction of chronic inflammation and help with fatigue symptoms. Explained occasional pain likely due to her body recovering. Counseled pt tissue damage takes about 6-8 weeks to heal. Pt instructed to use lubrication with intercourse once her body has healed and she is advised to manage the process. Discussed she is healing appropriately and may gradually return to all other activities of daily living as tolerated. Patient may return to all activities as tolerated. She knows to call the office if any new concerns arise. All questions answered to satisfaction. Associated Problem(s): Interstitial cystitis Patient advised on symptomology of interstitial cystitis (chronic bladder pain syndrome). Advised on dietary and lifestyle changes. Reduction of caffeine, citrus and tomatoes. Advised on the use of amitriptyline and hydroxyzine. Discussed the risks, benefits, indications, side effects, and alternatives of these medications. Advised on use of Elmiron. Discussed the potential risk of visual changes with long-term use. Advised on outpatient bladder instillations. Advised on undergoing 6 sessions 2 weeks apart each for optimal therapeutic response. Advised on intra-operative hydro-distention. Advised that in general it last approximately 3 to 9 months which is a time she should spend with lifestyle changes. Patient advised on starting Elmiron. Counseled on seeing an biomedical equipment technician/vp home health for yearly visual exams documented in this encounter [facility] 11-13-2023 Evaluation + Plan note Associated Problem(s): Interstitial cystitis Patient advised on symptomology of interstitial cystitis (chronic bladder pain syndrome). Advised on dietary and lifestyle changes. Reduction of caffeine, citrus and tomatoes. Advised on the use of amitriptyline and hydroxyzine. Discussed the risks, benefits, indications, side effects, and alternatives of these medications. Advised on use of Elmiron. Discussed the potential risk of visual changes with long-term use. Advised on outpatient bladder instillations. Advised on undergoing 6 sessions 2 weeks apart each for optimal therapeutic response. Advised on intra-operative hydro-distention. Advised that in general it last approximately 3 to 9 months which is a time she should spend with lifestyle changes. Patient advised on starting Elmiron. Counseled on seeing an biomedical equipment technician/vp home health for yearly visual exams [facility] 11-13-2023 Note POST-OPERATIVE VISIT Surgery: Robotic Assisted Laparoscopic Excision Of Endometriosis, Left Ovarian Cystectomy, Right Oophorectomy, Right Partial Ureterolysis, Extensive Lysis Of Adhesions, and Cystoscopy Surgery Date: 10/29/2023 Surgeon: Bernabe Rouse MD HPI: Caroline Guillen is a 33 y.o. yo female now 15 days post. She presents today for her postoperative visit. Post-op (Pt presents today for a post op visit. Pt had an excision, left ovary cystectomy and right oophrectomy done on 10/29/23. Pt states she does not have any concerns.) She reports doing well since surgery and is well and without fevers, chills, CP, SOB, chest palpitations, severe abdominal or pelvic pain, nausea, vomiting, bladder or bowel issues. Her port site incisions have healed well. She denies heavy vaginal bleeding. Much better, approximately 60% less pain. Occasional lightning crotch. ROS: Negative x 10 systems reviewed except as noted in the HPI. All past medical, surgical, social, family, allergy, and medication histories have been reviewed and updated in [facility] charting. Physical Exam: Physical Exam Constitutional: Appearance: Normal appearance. She is well-developed. Interventions: Face mask in place. HENT: Head: Normocephalic and atraumatic. Cardiovascular: Rate and Rhythm: Normal rate. Pulmonary: Effort: Pulmonary effort is normal. Abdominal: General: A surgical scar is present. Palpations: Abdomen is soft. Tenderness: There is no abdominal tenderness. Comments: Incisions healing well. Musculoskeletal: Cervical back: Normal range of motion and neck supple. Neurological: Mental Status: She is alert and oriented to person, place, and time. Skin: General: Skin is warm and dry. Psychiatric: Mood and Affect: Mood and affect normal. Thought Content: Thought content normal. Judgment: Judgment normal. Vitals and nursing note reviewed. Assessment and Plan: Problem List Items Addressed This Visit Endometriosis determined by laparoscopy Pt advised on surgical findings. Discussed relevant pathology. Surgical images reviewed and copies were given to the patient. Incision sites examined; dry, intact, and well approximated. Advised pt. of Scar Away and mechanical massage to reduce scar formation. Findings within normal limits. Discussed switching ibuprofen to Naprosyn or Aleve for continued pain management, reduction of chronic inflammation and help with fatigue symptoms. Explained occasional pain likely due to her body recovering. Counseled pt tissue damage takes about 6-8 weeks to heal. Pt instructed to use lubrication with intercourse once her body has healed and she is advised to manage the process. Discussed she is healing appropriately and may gradually return to all other activities of daily living as tolerated. Patient may return to all activities as tolerated. She knows to call the office if any new concerns arise. All questions answered to satisfaction. Interstitial cystitis Patient advised on symptomology of interstitial cystitis (chronic bladder pain syndrome). Advised on dietary and lifestyle changes. Reduction of caffeine, citrus and tomatoes. Advised on the use of amitriptyline and hydroxyzine. Discussed the risks, benefits, indications, side effects, and alternatives of these medications. Advised on use of Elmiron. Discussed the potential risk of visual changes with long-term use. Advised on outpatient bladder instillations. Advised on undergoing 6 sessions 2 weeks apart each for optimal therapeutic response. Advised on intra-operative hydro-distention. Advised that in general it last approximately 3 to 9 months which is a time she should spend with lifestyle changes. Patient advised on starting Elmiron. Counseled on seeing an biomedical equipment technician/vp home health for yearly visual exams Relevant Medications pentosan polysulfate (Elmiron) 100 mg capsule Other Visit Diagnoses Post-operative state - Primary Relevant Orders Urine Aerobic Culture Urinalysis Return in about 3 months (around 02/13/2024) for with an JUNO. Bernabe Rouse MD AUTHENTICATED BY BERNABE ROUSE, ON 11/24/2023 02:50:25 [facility] 10-29-2023 Note Please notify Caroline Guillen that her pathology results were consistent with ovary affected by ovarian torsion and scar tissue with endometriosis. AUTHENTICATED BY BERNABE ROUSE, ON 11/01/2023 19:28:16 [facility] 10-29-2023 Note GYNECOLOGY BRIEF POS T-OP NOTE Patient Name: Caroline Guillen MR #: [id number] ASSESSMENT AND PLAN: * S/P robot-assisted surgical procedure Assessment & Plan Caroline Guillen is a 32 y.o. female who is POD#0 from RA RO, EOE, SRINI, cysto - HD stable; recent Hgb 14.6 > EBL 1600 - Pain: ERAS - MIVF/PO fluids: MIVF at 40cc/hr - GI: dorie reg diet - :voiding spontaneously - ID: no antibiotics indicated - Resp: Incentive spirometry use - DVT Prophylaxis: SCDs and early ambulation - Dispo: Routine post-op care, Anticipate d/c home today On weekdays before 4:30pm, please page the author of this note. After 4:30pm or on weekends, please page *[phone] SUBJECTIVE: The patient reports no acute issues. Pain is controlled, currently using ERAS with pain ball in place. Denies CP/SOB/fevers/chills/leg pain. Denies nausea or vomiting. Tolerating a regular diet. voiding spontaneously OBJECTIVE: Temp: [97.6 degrees F (36.4 degrees C)-98.2 degrees F (36.8 degrees C)] 98.1 degrees F (36.7 degrees C) Heart Rate: [58-93] 74 Resp: [12-18] 15 BP: (122-136)/(77-98) 129/86 No intake/output data recorded. GEN: NAD, A&Ox3 Head: normocephalic Cardiac: Reg rate. No peripheral edema. Pulm: lungs clear to auscultation Abdomen: soft, ATTP, non-distended, no rebound or guarding Ext: Bilat LE non-tender, no edema. SCDs in place. Incision: clean/dry/intact, exofin in place MSK: FROM x 4. Neuro: Intact, interactive, appropriate. Current medications: acetaminophen 975 mg Oral Q8H LLUVIA docusate sodium 100 mg Oral BID ketorolac 15 mg Intravenous Q6H Followed by [START ON 10/30/2023] ibuprofen 600 mg Oral Q6H QUEtiapine 12.5 mg Oral BID scopolamine 1 patch Transdermal Once Labs: Lab Results Component Value Date WBC 7.20 10/20/2023 HGB 14.6 10/20/2023 HCT 43.4 10/20/2023 MCV 91.2 10/20/2023 PLT 384 10/20/2023 RBC 4.76 10/20/2023 No results found for: GLUCOSE , CALCIUM , NA , K , CL , BUN , CREATININE Meredith Michelle DO 10/29/2023 2:29 PM AUTHENTICATED BY LAURA FAIRCHILD 10/29/2023 14:29:42 [facility] 10-20-2023 History and physical note Assessment and Plan 1. Endometriosis determined by laparoscopy Primary management per DOCUMENT IMAGE TECHNICIAN team. Patient provided instructions on preoperative management of medications including withholding Aspirin, NSAIDS, and specific Herbal Supplements. 2. Pre-op examination Medically acceptable for elective procedure. This patient has no active cardiac conditions and would be considered at a low risk for a major adverse cardiac event (MACE) based on a revised cardiac risk index (RCRI) score of 0. This patient has an activity level greater than 4 METS and would be considered at acceptable cardiac risk based on the 2014 [employer] (ACC/AHA) guidelines on Perioperative Cardiovascular Evaluation and Management of Patients Undergoing Noncardiac Surgery. Deep vein thrombosis prophylaxis deferred to surgical service, recommend 2016 [employer]ician Guidelines. Apfel score is 2. (Score/Risk of PONV = 0/10%, 1/21%, 2/39%, 3/61%, 4/79%). This score has been externally validated. 3. Anxiety and depression By hxBuck Donnelly. Patient given instruction on preoperative use of anxiety/depression medications. 4. Bipolar affective disorder, remission status unspecified (HCC) Suspected. Pt follows with a psychiatries. Andrzej. 5. Complication of anesthesia, initial encounter History of latasha after back surgery. She is instructed alert anesthesia about this on the day of her procedure No chief complaint on file. History of Present Illness Caroline Guillen is a 32 y.o. female who presents at the request of Bernabe Rouse MD prior to ROBOTIC ASSISTED LAPAROSCOPIC EXCISION OF ENDOMETRIOSIS, LEFT OVARIAN CYSTECTOMY, POSSIBLE OOPHORECTOMY, LYSIS OF ADHESIONS,, CYSTOSCOPY POSSIBLE HYDRODISTENTION *MODERATE* *ERAS PROTOCOL* *GLYCEMIC CONTROL PROTOCOL* 10/29/23. Pre-Op Dx: Endometriosis determined by laparoscopy [N80.9], Interstitial cystitis [N30.10], Endometrioma of ovary [N80.129]. Portions of this note were taken using [employer] dictation system. There may be unintended errors/omissions as a result. Patient is a very nice 32-year-old female with history of anxiety, depression, possible bipolar disorder and endometriosis. She is here for preop restratification planned robotic assisted laparoscopic excision of endometriosis to be performed on 10/29/2023. She denies any history of coronary disease, congestive heart failure, cerebrovascular disease, diabetes, or chronic kidney disease. She denies any history of postoperative nausea or vomiting. She denies any tobacco use. She does have a history of complication of anesthesia with latasha after anesthesia after back surgery. She is instructed to alert anesthesia about this on the day of her procedure. Patient says they can climb up 2 flights of stairs without chest pain. Functional capacity is greater than 4 METS. Patient denies any recent fevers, chills, sweats, nausea, vomiting, diarrhea, chest pain, shortness of breath, or dysuria. Patient tells me she has been feeling more anxious recently. She thinks it is due to Seroquel. Her psychiatrist increase her Seroquel dose from 25 to 50 mg nightly. She has noted increased anxiety since that time. She more recently last day her to cut her cervical back down to 25 mg a day which she was on in the past. She we will follow-up with her psychiatrist for further dosing in the future Past Medical History: Diagnosis Date Anxiety Arthritis Back pain Bipolar disorder ([facility]) April 2023 Bladder problem 2019 Interstitial Cystitis Chronic pain disorder 2018 Depression Endometriosis Fibromyalgia, primary GERD (gastroesophageal reflux disease) Headache IC (interstitial cystitis) pain on urination at times or if waits too long to urinate Neck pain Overactive bladder 2009 Patient had no falls in past year Peripheral neuropathy left fingers, left great toe and lower leg Psychiatric disorder Psychosis ([facility]) 02-24-2021 Temporary Caused by Dexamethasone Past Medical History Pertinent Negatives: Diagnosis Date Noted Alcoholism ([facility]) 04/25/2023 Anemia 04/25/2023 Arrhythmia 04/25/2023 Asthma 04/25/2023 Bleeding disorder ([facility]) 04/25/2023 Cancer ([facility]) 04/25/2023 Cataract 04/25/2023 CHF (congestive heart failure) ([facility]) 04/25/2023 Chronic kidney disease (CKD) 04/25/2023 Clostridium difficile infection 11/09/2019 Complication of anesthesia 11/09/2019 COPD (chronic obstructive pulmonary disease) ([facility]) 04/25/2023 Coronary artery disease 04/25/2023 Crohn's disease ([facility]) 04/25/2023 Deep vein thrombosis ([facility]) 04/25/2023 Dementia ([facility]) 04/25/2023 Dermatitis 04/25/2023 Diabetes mellitus type I ([facility]) 04/25/2023 Diabetes mellitus, type 2 ([facility]) 11/09/2019 Diverticulosis 04/25/2023 Edema 04/25/2023 Emphysema of lung ([facility]) 04/25/2023 ESBL (extended spectrum beta-lactamase) producing bacteria infection 04/25/2023 Glaucoma 04/25/2023 Hard to intubate 11/09/2019 Heart murmur 04/25/2023 Heart valve disease 04/25/2023 History of blood transfusion 04/25/2023 HIV disease (HCC) 11/09/2019 HL (hearing loss) 04/25/2023 Hyperlipidemia 04/25/2023 Hypertension 04/25/2023 Hyperthyroidism 04/25/2023 Hypothyroidism 04/25/2023 Infectious viral hepatitis 11/09/2019 Irritable bowel syndrome 04/25/2023 Liver disease 04/25/2023 Malignant hyperthermia due to anesthesia 11/09/2019 MRSA (methicillin resistant Staphylococcus aureus) 11/09/2019 Myocardial infarction (HCC) 04/25/2023 Nephrolithiasis 04/25/2023 No blood products 04/25/2023 Open wound 04/25/2023 Osteoporosis 04/25/2023 Parkinson's disease (HCC) 04/25/2023 PONV (postoperative nausea and vomiting) 11/09/2019 Pulmonary embolism (HCC) 04/25/2023 Rheumatoid arthritis (HCC) 04/25/2023 Seizures ([facility]) 04/25/2023 Sleep apnea, obstructive 11/09/2019 Stroke ([facility]) 04/25/2023 TIA (transient ischemic attack) 04/25/2023 Past Surgical History: Procedure Laterality Date APPENDECTOMY 10/2019 BACK SURGERY April 30, 2023 Hemilaminectomy foraminotomy HYSTERECTOMY (CERVIX REMOVED) 04/16/2022 HYSTERECTOMY TOTAL ROBOTIC XI N/A 04/16/2022 Procedure: ROBOTIC ASSISTED LAPAROSCOPIC HYSTERECTOMY, EXCISION OF ENDOMETRIOSIS, LYSIS OF ADHESIONS; Surgeon: Bernabe Rouse MD; Location: [facility] Main OR; Service: SALES REPRESENTATIVE [employer] LAMINECTOMY 05/05/2018 L4-L5 LAMINECTOMY DISC LUMBAR SINGLE LEVEL Left 04/30/2023 Procedure: Redo Left Lumbar Five-Six Discectomy/Foraminotomy; Surgeon: Jessica Meyers Jr. DO; Location: [facility] NEURO OR; Service: Neurological ORTHOPEDIC SURGERY May 05, 2018 Discectomy of L4-L5 PELVISCOPY ROBOTIC XI N/A 11/09/2019 Procedure: ROBOTIC ASSISTED LAPAROSCOPIC EXCISION OF ENDOMETRIOSIS, BILATERAL SALPINGECTOMY, BILATERAL URETEROLYSIS, LEFT OVARIAN CYSTECTOMY, BILATERAL OVARIAN SUSPENSION, APPENDECTOMY CYSTOSCOPY WITH HYDRODISTENTION, ERAS PROTOCOL; Surgeon: Bernabe Rouse MD; Location: [facility] Main OR; Service: OBGYN TONSILLECTOMY 04/17/2021 WISDOM TOOTH EXTRACTION Bilateral Age 23 Social History Socioeconomic History Marital status: Spouse name: Ivan Number of children: 0 Tobacco Use Smoking status: Never Smokeless tobacco: Never Tobacco comments: None Vaping Use Vaping status: Never Used Substance and Sexual Activity Alcohol use: Not Currently Comment: Only on Holidays Drug use: Yes Types: Marijuana Comment: only as needed for pain and in extremely low doses 2.5-7mg Sexual activity: Not Currently Partners: Male control/protection: Surgical Comment: Bilateral Salpingectomy and Hysterectomy Family History Problem Relation Age of Onset Unknown Mother pt does not go to the doctor Unknown Father never met him Anesthesia problems Neg Hx Prior to Admission medications taking for visit date 10/20/23 Medication Sig Taking? Discontinued? acetaminophen (TYLENOL ORAL) Take 1,000 mg by mouth every 6 (six) hours as needed Reasons: pain. Yes cetirizine (ZYRTEC) 10 MG tablet Take 1 (one) tablet (10 mg total) by mouth every evening . Yes docusate sodium (COLACE) 100 MG capsule Take 3 (three) capsules (300 mg total) by mouth every evening . Yes Lactobac no.41/Bifidobact no.7 (PROBIOTIC-10 ORAL) Take 1 capsule by mouth every morning . Yes omeprazole (PRILOSEC) 40 MG capsule Take 1 (one) capsule (40 mg total) by mouth every evening . Yes ondansetron (ZOFRAN-ODT) 4 MG disintegrating tablet Dissolve 1 (one) tablet (4 mg total) on top of tongue every 6 (six) hours as needed for nausea . Yes PSYLLIUM HUSK, ASPARTAME, ORAL Take 6 mg by mouth daily in the afternoon . Yes QUEtiapine (SEROQUEL XR) 50 mg Tb24 Take 25 mg by mouth nightly . Yes UNABLE TO FIND Take 500 mg by mouth 2 (two) times a day Med Name: tumeric, curcumin . Yes ascorbic acid, vitamin C, (VITAMIN C) 1000 MG TbER Take 1 capsule by mouth 2 (two) times a day . Yes Yes b complex vitamins capsule Take 1 (one) capsule by mouth every morning . Yes Yes cholecalciferol, vitamin D3, 50 mcg (2,000 unit) cap Take 2 (two) capsules by mouth 2 (two) times a day . Yes Yes hyoscyamine sulfate 0.125 mg ODT Dissolve 1 (one) tablet (125 mcg total) on top of tongue 4 (four) times a day as needed . Yes Yes loratadine (CLARITIN) 10 mg tablet Take 1 (one) tablet (10 mg total) by mouth every evening . Yes Yes meloxicam (MOBIC) 15 MG tablet Take 1 (one) tablet (15 mg total) by mouth every morning . Yes Yes omega-3 fatty acids/fish oil (fish oil-omega-3 fatty acids) 300-1,000 mg capsule Take 2 (two) capsules by mouth 2 (two) times a day . Yes Yes oxyCODONE-acetaminophen (PERCOCET) 5-325 mg per tablet Take 1 (one) tablet by mouth every 6 (six) hours as needed (post-operative pain) . Allergies Allergen Reactions Amlodipine Shortness Of Breath Itching from Chest to [place] Prozac [Fluoxetine] Shortness Of Breath Panicky, Shaky, Chest Tightening Risperidone Shortness Of Breath Itching from Chest to [place] Cymbalta [Duloxetine] Other (See Comments) Migraines, severe disorientation and dizziness Dexamethasone (Pf) Other (See Comments) Psychosis Gabapentin Other (See Comments) Suicidal Thoughts [place] Carbonate Other (See Comments) Blood Sugar increase Nickel Hives and Rash Penicillin Other (See Comments) Grandfather and mother had anaphylactic reaction so patient avoids it. Review of Systems Physical Exam BP (!) 142/92 Pulse 72 Temp 98.3 F (36.8 C) (Oral) Resp 14 Ht 5' 8 Wt 77.6 kg (171 lb) LMP (LMP Unknown) SpO2 99% BMI 26.00 kg/m Physical Exam Data Preprocedure Sleep Apnea Assessment - Mild Risk (1/3) Sleep Apnea in the patient's Active Problem [...] adequate hours of sleep the night before?: yes (because of meds) Do you fall asleep easily while: watching TV, reading, riding in or driving a car?: no 3. Predisposing physician characteristics: (1 point for this category, 2 points if the BMI >= 40) BMI (Calculated): 26 Neck Circumference (inches): 13.75 inches Recent Results (from the past 1825 days) XR HIP LEFT 2-3 VIEWS (ROUTINE) 07/22/2023 (Final) Status: Normal Narrative EXAMINATION: XR HIP LEFT 2-3 VIEWS (ROUTINE) 07/22/2023 2:53 pm HISTORY: ORDERING SYSTEM PROVIDED HISTORY: S/P discetomy/pain, TECHNOLOGIST PROVIDED HISTORY: Illness/Other Reason for exam: chronic pain in the posterior hip encircle the joint with radiating pain burning and numbness down the leg off and on for several years Cancer History: n Surgery, RadiationHistory: n Encounter Type: Initial Additional signs and symptoms: hx of Lspine surgery ORDERING SYSTEM PROVIDED DIAGNOSIS CODES: M25.552 Left hip pain COMPARISON: None available. TECHNIQUE: Two views of the left hip. FINDINGS: Osseous mineralization is average for age. Femoral head is well seated in the acetabulum. Joint space is maintained. There is no acute fracture or radiographic evidence of AVN. Soft tissues appear grossly normal. Impression Negative radiographs of the left hip. KATH/Zerply Workstation ID: [id number] [facility] 10-20-2023 History and physical note Assessment and Plan 1. Endometriosis determined by laparoscopy Primary management per DOCUMENT IMAGE TECHNICIAN team. Patient provided instructions on preoperative management of medications including withholding Aspirin, NSAIDS, and specific Herbal Supplements. 2. Pre-op examination Medically acceptable for elective procedure. This patient has no active cardiac conditions and would be considered at a low risk for a major adverse cardiac event (MACE) based on a revised cardiac risk index (RCRI) score of 0. This patient has an activity level greater than 4 METS and would be considered at acceptable cardiac risk based on the 2014 [place] [employer] (ACC/AHA) guidelines on Perioperative Cardiovascular Evaluation and Management of Patients Undergoing Noncardiac Surgery. Deep vein thrombosis prophylaxis deferred to surgical service, recommend 2016 [employer]ician Guidelines. Apfel score is 2. (Score/Risk of PONV = 0/10%, 1/21%, 2/39%, 3/61%, 4/79%). This score has been externally validated. 3. Anxiety and depression By hx. Andrzej. Patient given instruction on preoperative use of anxiety/depression medications. 4. Bipolar affective disorder, remission status unspecified (HCC) Suspected. Pt follows with a psychiatries. Andrzej. 5. Complication of anesthesia, initial encounter History of latasha after back surgery. She is instructed alert anesthesia about this on the day of her procedure No chief complaint on file. History of Present Illness Caroline Guillen is a 32 y.o. female who presents at the request of Bernabe Rouse MD prior to ROBOTIC ASSISTED LAPAROSCOPIC EXCISION OF ENDOMETRIOSIS, LEFT OVARIAN CYSTECTOMY, POSSIBLE OOPHORECTOMY, LYSIS OF ADHESIONS,, CYSTOSCOPY POSSIBLE HYDRODISTENTION *MODERATE* *ERAS PROTOCOL* *GLYCEMIC CONTROL PROTOCOL* 10/29/23. Pre-Op Dx: Endometriosis determined by laparoscopy [N80.9], Interstitial cystitis [N30.10], Endometrioma of ovary [N80.129]. Portions of this note were taken using [employer] dictation system. There may be unintended errors/omissions as a result. Patient is a very nice 32-year-old female with history of anxiety, depression, possible bipolar disorder and endometriosis. She is here for preop restratification planned robotic assisted laparoscopic excision of endometriosis to be performed on 10/29/2023. She denies any history of coronary disease, congestive heart failure, cerebrovascular disease, diabetes, or chronic kidney disease. She denies any history of postoperative nausea or vomiting. She denies any tobacco use. She does have a history of complication of anesthesia with latasha after anesthesia after back surgery. She is instructed to alert anesthesia about this on the day of her procedure. Patient says they can climb up 2 flights of stairs without chest pain. Functional capacity is greater than 4 METS. Patient denies any recent fevers, chills, sweats, nausea, vomiting, diarrhea, chest pain, shortness of breath, or dysuria. Patient tells me she has been feeling more anxious recently. She thinks it is due to Seroquel. Her psychiatrist increase her Seroquel dose from 25 to 50 mg nightly. She has noted increased anxiety since that time. She more recently last day her to cut her cervical back down to 25 mg a day which she was on in the past. She we will follow-up with her psychiatrist for further dosing in the future Past Medical History: Diagnosis Date Anxiety Arthritis Back pain Bipolar disorder ([facility]) April 2023 Bladder problem 2019 Interstitial Cystitis Chronic pain disorder 2018 Depression Endometriosis Fibromyalgia, primary GERD (gastroesophageal reflux disease) Headache IC (interstitial cystitis) pain on urination at times or if waits too long to urinate Neck pain Overactive bladder 2009 Patient had no falls in past year Peripheral neuropathy left fingers, left great toe and lower leg Psychiatric disorder Psychosis ([facility]) 02-24-2021 Temporary Caused by Dexamethasone Past Medical History Pertinent Negatives: Diagnosis Date Noted Alcoholism ([facility]) 04/25/2023 Anemia 04/25/2023 Arrhythmia 04/25/2023 Asthma 04/25/2023 Bleeding disorder ([facility]) 04/25/2023 Cancer ([facility]) 04/25/2023 Cataract 04/25/2023 CHF (congestive heart failure) ([facility]) 04/25/2023 Chronic kidney disease (CKD) 04/25/2023 Clostridium difficile infection 11/09/2019 Complication of anesthesia 11/09/2019 COPD (chronic obstructive pulmonary disease) ([facility]) 04/25/2023 Coronary artery disease 04/25/2023 Crohn's disease ([facility]) 04/25/2023 Deep vein thrombosis ([facility]) 04/25/2023 Dementia ([facility]) 04/25/2023 Dermatitis 04/25/2023 Diabetes mellitus type I ([facility]) 04/25/2023 Diabetes mellitus, type 2 ([facility]) 11/09/2019 Diverticulosis 04/25/2023 Edema 04/25/2023 Emphysema of lung ([facility]) 04/25/2023 ESBL (extended spectrum beta-lactamase) producing bacteria infection 04/25/2023 Glaucoma 04/25/2023 Hard to intubate 11/09/2019 Heart murmur 04/25/2023 Heart valve disease 04/25/2023 History of blood transfusion 04/25/2023 HIV disease ([facility]) 11/09/2019 HL (hearing loss) 04/25/2023 Hyperlipidemia 04/25/2023 Hypertension 04/25/2023 Hyperthyroidism 04/25/2023 Hypothyroidism 04/25/2023 Infectious viral hepatitis 11/09/2019 Irritable bowel syndrome 04/25/2023 Liver disease 04/25/2023 Malignant hyperthermia due to anesthesia 11/09/2019 MRSA (methicillin resistant Staphylococcus aureus) 11/09/2019 Myocardial infarction (HCC) 04/25/2023 Nephrolithiasis 04/25/2023 No blood products 04/25/2023 Open wound 04/25/2023 Osteoporosis 04/25/2023 Parkinson's disease (HCC) 04/25/2023 PONV (postoperative nausea and vomiting) 11/09/2019 Pulmonary embolism (HCC) 04/25/2023 Rheumatoid arthritis ([facility]) 04/25/2023 Seizures ([facility]) 04/25/2023 Sleep apnea, obstructive 11/09/2019 Stroke ([facility]) 04/25/2023 TIA (transient ischemic attack) 04/25/2023 Past Surgical History: Procedure Laterality Date APPENDECTOMY 10/2019 BACK SURGERY April 30, 2023 Hemilaminectomy foraminotomy HYSTERECTOMY (CERVIX REMOVED) 04/16/2022 HYSTERECTOMY TOTAL ROBOTIC XI N/A 04/16/2022 Procedure: ROBOTIC ASSISTED LAPAROSCOPIC HYSTERECTOMY, EXCISION OF ENDOMETRIOSIS, LYSIS OF ADHESIONS; Surgeon: Bernabe Rouse MD; Location: [facility] Main OR; Service: 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 REPRESENTATIVE [employer] LAMINECTOMY 05/05/2018 L4-L5 LAMINECTOMY DISC LUMBAR SINGLE LEVEL Left 04/30/2023 Procedure: Redo Left Lumbar Five-Six Discectomy/Foraminotomy; Surgeon: Jessica Meyers Jr., DO; Location: [facility] NEURO OR; Service: Neurological ORTHOPEDIC SURGERY May 05, 2018 Discectomy of L4-L5 PELVISCOPY ROBOTIC XI N/A 11/09/2019 Procedure: ROBOTIC ASSISTED LAPAROSCOPIC EXCISION OF ENDOMETRIOSIS, BILATERAL SALPINGECTOMY, BILATERAL URETEROLYSIS, LEFT OVARIAN CYSTECTOMY, BILATERAL OVARIAN SUSPENSION, APPENDECTOMY CYSTOSCOPY WITH HYDRODISTENTION, ERAS PROTOCOL; Surgeon: Bernabe Rouse MD; Location: [facility] Main OR; Service: OBGYN TONSILLECTOMY 04/17/2021 WISDOM TOOTH EXTRACTION Bilateral Age 23 Social History Socioeconomic History Marital status: Spouse name: Ivan Number of children: 0 Tobacco Use Smoking status: Never Smokeless tobacco: Never Tobacco comments: None Vaping Use Vaping status: Never Used Substance and Sexual Activity Alcohol use: Not Currently Comment: Only on Holidays Drug use: Yes Types: Marijuana Comment: only as needed for pain and in extremely low doses 2.5-7mg Sexual activity: Not Currently Partners: Male control/protection: Surgical Comment: Bilateral Salpingectomy and Hysterectomy Family History Problem Relation Age of Onset Unknown Mother pt does not go to the doctor Unknown Father never met him Anesthesia problems Neg Hx Prior to Admission medications taking for visit date 10/20/23 Medication Sig Taking? Discontinued? acetaminophen (TYLENOL ORAL) Take 1,000 mg by mouth every 6 (six) hours as needed Reasons: pain. Yes cetirizine (ZYRTEC) 10 MG tablet Take 1 (one) tablet (10 mg total) by mouth every evening . Yes docusate sodium (COLACE) 100 MG capsule Take 3 (three) capsules (300 mg total) by mouth every evening . Yes Lactobac no.41/Bifidobact no.7 (PROBIOTIC-10 ORAL) Take 1 capsule by mouth every morning . Yes omeprazole (PRILOSEC) 40 MG capsule Take 1 (one) capsule (40 mg total) by mouth every evening . Yes ondansetron (ZOFRAN-ODT) 4 MG disintegrating tablet Dissolve 1 (one) tablet (4 mg total) on top of tongue every 6 (six) hours as needed for nausea . Yes PSYLLIUM HUSK, ASPARTAME, ORAL Take 6 mg by mouth daily in the afternoon . Yes QUEtiapine (SEROQUEL XR) 50 mg Tb24 Take 25 mg by mouth nightly . Yes UNABLE TO FIND Take 500 mg by mouth 2 (two) times a day Med Name: tumeric, curcumin . Yes ascorbic acid, vitamin C, (VITAMIN C) 1000 MG TbER Take 1 capsule by mouth 2 (two) times a day . Yes Yes b complex vitamins capsule Take 1 (one) capsule by mouth every morning . Yes Yes cholecalciferol, vitamin D3, 50 mcg (2,000 unit) cap Take 2 (two) capsules by mouth 2 (two) times a day . Yes Yes hyoscyamine sulfate 0.125 mg ODT Dissolve 1 (one) tablet (125 mcg total) on top of tongue 4 (four) times a day as needed . Yes Yes loratadine (CLARITIN) 10 mg tablet Take 1 (one) tablet (10 mg total) by mouth every evening . Yes Yes meloxicam (MOBIC) 15 MG tablet Take 1 (one) tablet (15 mg total) by mouth every morning . Yes Yes omega-3 fatty acids/fish oil (fish oil-omega-3 fatty acids) 300-1,000 mg capsule Take 2 (two) capsules by mouth 2 (two) times a day . Yes Yes oxyCODONE-acetaminophen (PERCOCET) 5-325 mg per tablet Take 1 (one) tablet by mouth every 6 (six) hours as needed (post-operative pain) . Allergies Allergen Reactions Amlodipine Shortness Of Breath Itching from Chest to [place] Prozac [Fluoxetine] Shortness Of Breath Panicky, Shaky, Chest Tightening Risperidone Shortness Of Breath Itching from Chest to [place] Cymbalta [Duloxetine] Other (See Comments) Migraines, severe disorientation and dizziness Dexamethasone (Pf) Other (See Comments) Psychosis Gabapentin Other (See Comments) Suicidal Thoughts [place] Carbonate Other (See Comments) Blood Sugar increase Nickel Hives and Rash Penicillin Other (See Comments) Grandfather and mother had anaphylactic reaction so patient avoids it. Review of Systems Physical Exam BP (!) 142/92 Pulse 72 Temp 98.3 F (36.8 C) (Oral) Resp 14 Ht 5' 8 Wt 77.6 kg (171 lb) LMP (LMP Unknown) SpO2 99% BMI 26.00 kg/m Physical Exam Data Preprocedure Sleep Apnea Assessment - Mild Risk (1/3) Sleep Apnea in the patient's Active Problem [...] adequate hours of sleep the night before?: yes (because of meds) Do you fall asleep easily while: watching TV, reading, riding in or driving a car?: no 3. Predisposing physician characteristics: (1 point for this category, 2 points if the BMI >= 40) BMI (Calculated): 26 Neck Circumference (inches): 13.75 inches Recent Results (from the past 1825 days) XR HIP LEFT 2-3 VIEWS (ROUTINE) 07/22/2023 (Final) Status: Normal Narrative EXAMINATION: XR HIP LEFT 2-3 VIEWS (ROUTINE) 07/22/2023 2:53 pm HISTORY: ORDERING SYSTEM PROVIDED HISTORY: S/P discetomy/pain, TECHNOLOGIST PROVIDED HISTORY: Illness/Other Reason for exam: chronic pain in the posterior hip encircle the joint with radiating pain burning and numbness down the leg off and on for several years Cancer History: n Surgery, RadiationHistory: n Encounter Type: Initial Additional signs and symptoms: hx of Lspine surgery ORDERING SYSTEM PROVIDED DIAGNOSIS CODES: M25.552 Left hip pain COMPARISON: None available. TECHNIQUE: Two views of the left hip. FINDINGS: Osseous mineralization is average for age. Femoral head is well seated in the acetabulum. Joint space is maintained. There is no acute fracture or radiographic evidence of AVN. Soft tissues appear grossly normal. Impression Negative radiographs of the left hip. KATH/manuel Workstation ID: [id number] documented in this encounter [facility] 10-20-2023 Instructions Reuben Muhammad MD - 10/20/2023 11:33 AM EDT Preoperative Medication Instructions In preparation for surgery please continue all of your current medications with the following changes: Active Home Medications Medication Sig Note Take Last Dose On Take Morning of Surgery Comment(s) acetaminophen (TYLENOL ORAL) Take 1,000 mg by mouth every 6 (six) hours as needed Reasons: pain. Yes, if needed. cetirizine (ZYRTEC) 10 MG tablet Take 1 (one) tablet (10 mg total) by mouth every evening . Take as usual. docusate sodium (COLACE) 100 MG capsule Take 3 (three) capsules (300 mg total) by mouth every evening . 1 week prior to surgery/procedure Lactobac no.41/Bifidobact no.7 (PROBIOTIC-10 ORAL) Take 1 capsule by mouth every morning . 1 week prior to surgery/procedure omeprazole (PRILOSEC) 40 MG capsule Take 1 (one) capsule (40 mg total) by mouth every evening . Take as usual. ondansetron (ZOFRAN-ODT) 4 MG disintegrating tablet Dissolve 1 (one) tablet (4 mg total) on top of tongue every 6 (six) hours as needed for nausea . 10/20/2023: Patient has been taking this medication regularly, but stopped on 10/15/23 for planned procedure. Take as usual. PSYLLIUM HUSK, ASPARTAME, ORAL Take 6 mg by mouth daily in the afternoon . 1 day prior to surgery QUEtiapine (SEROQUEL XR) 50 mg Tb24 Take 25 mg by mouth nightly . Take as usual. UNABLE TO FIND Take 500 mg by mouth 2 (two) times a day Med Name: singh martinez . 10/20/2023: Patient has been taking this medication regularly, but stopped on 10/15/23 for planned procedure. 1 week prior to surgery/procedure Please take your evening medications as usual on the evening prior to surgery. STOP Aspirin (and medications that contain aspirin, such as Naomi Want[place], Pepto-Bismol, Anacin), antiinflammatory medications such as Advil, Motrin, Ibuprofen, Naproxen, Aleve, Naomi [place], Pepto-Bismol, Anacin, Diclofenac, Voltaren, Daypro, Etodolac, Ketoprofen, Meloxicam, Piroxicam, Relafen, Nabumetone, etc. Also discontinue Vitamin C, Vitamin E, [place]-3 Fatty Acid, Fish Oil or [place], as well as all herbal medications and supplements. Take last dose 1 week before surgery. Tylenol (acetaminophen) is acceptable, but be careful [...] day of surgery. documented in this encounter [facility] 10-20-2023 Note Formatting of this n ote might be different from the original. Patient Instructions for [facility]: MAIN OR Prior to surgery: Please contact your surgeon's office for the scheduled time of your surgery. Report to the Surgery Family Waiting Area in the [place] area of [facility] 2 hours prior to your surgery. You may use committee member parking available at the Blue Entrance, or committee member parking/ self-parking at the [facility] Garage or [address]. A voucher for parking will be provided to you. One family member may accompany you back into the Pre-Operative area. If your surgeon has given you special guidelines for eating and drinking prior to surgery, follow their instructions. If no instructions were provided, follow these instructions. The evening before surgery you may eat a low-fat meal up. You may eat and drink until midnight. Do not eat or drink anything, including gum, cough drops, hard candy, or mints after midnight. Take only the morning pills that you have been instructed to take with sips of water, unless otherwise instructed by your doctor. If you have questions about how to take your medication on the day of surgery, contact your surgeon. If you are a diabetic, do not take your morning dose of insulin or oral hypoglycemic (sugar pill), unless otherwise instructed by your physician. We will check your blood glucose level prior to surgery and again after surgery. Shower using dial soap or as advised by your surgeon's office. You may brush your teeth on the morning of surgery but avoid swallowing any excess water. Do not apply any makeup, lotions, powders, or deodorants. Wear loose-fitting, washable clothing that will not interfere with your incision or dressing. Wear comfortable shoes that are easy to get on and off (tennis shoes, non-skid shoes, slippers, etc.). Please remove all jewelry and piercings, including wedding rings. If you cannot remove your rings, we may be required to cut them off if necessary. All nail tanzanian must be removed from your fingernails and toenails. Remove artificial nails from your fingernails. Please leave all valuable items at home. Do not smoke, vape, or chew tobacco or marijuana for 24 hours before surgery. Do not drink alcoholic beverages for 24 hours before surgery. Please be sure to wear comfortable, appropriate clothing. Please remember to bring both your insurance card and a photo ID with you on the day of your surgery. After your surgery: Arrange for a responsible adult (18 years or older) to drive you to and from the hospital if you are having an outpatient procedure. You are not permitted to drive until instructed by your surgeon. The expectation is that this delivery motorcycle driver will remain at the hospital for the duration of your procedure. You are advised to have someone stay with you for at least 24 hours after being under anesthesia. [facility] 10-20-2023 Note Formatting of this n ote might be different from the original. Patient Instructions for [facility]: MAIN OR Prior to surgery: Please contact your surgeon's office for the scheduled time of your surgery. Report to the Surgery Family Waiting Area in the [place] area of [facility] 2 hours prior to your surgery. You may use committee member parking available at the Blue Entrance, or committee member parking/ self-parking at the [facility] Gar[address] or [address]. A voucher for parking will be provided to you. One family member may accompany you back into the Pre-Operative area. If your surgeon has given you special guidelines for eating and drinking prior to surgery, follow their instructions. If no instructions were provided, follow these instructions. The evening before surgery you may eat a low-fat meal up. You may eat and drink until midnight. Do not eat or drink anything, including gum, cough drops, hard candy, or mints after midnight. Take only the morning pills that you have been instructed to take with sips of water, unless otherwise instructed by your doctor. If you have questions about how to take your medication on the day of surgery, contact your surgeon. If you are a diabetic, do not take your morning dose of insulin or oral hypoglycemic (sugar pill), unless otherwise instructed by your physician. We will check your blood glucose level prior to surgery and again after surgery. Shower using dial soap or as advised by your surgeon's office. You may brush your teeth on the morning of surgery but avoid swallowing any excess water. Do not apply any makeup, lotions, powders, or deodorants. Wear loose-fitting, washable clothing that will not interfere with your incision or dressing. Wear comfortable shoes that are easy to get on and off (tennis shoes, non-skid shoes, slippers, etc.). Please remove all jewelry and piercings, including wedding rings. If you cannot remove your rings, we may be required to cut them off if necessary. All nail tanzanian must be removed from your fingernails and toenails. Remove artificial nails from your fingernails. Please leave all valuable items at home. Do not smoke, vape, or chew tobacco or marijuana for 24 hours before surgery. Do not drink alcoholic beverages for 24 hours before surgery. Please be sure to wear comfortable, appropriate clothing. Please remember to bring both your insurance card and a photo ID with you on the day of your surgery. After your surgery: Arrange for a responsible adult (18 years or older) to drive you to and from the hospital if you are having an outpatient procedure. You are not permitted to drive until instructed by your surgeon. The expectation is that this delivery motorcycle driver will remain at the hospital for the duration of your procedure. You are advised to have someone stay with you for at least 24 hours after being under anesthesia. [facility] 10-20-2023 Note Formatting of this n ote might be different from the original. Patient Instructions for [facility]: MAIN OR Prior to surgery: Please contact your surgeon's office for the scheduled time of your surgery. Report to the Surgery Family Waiting Area in the [place] area of [facility] 2 hours prior to your surgery. You may use committee member parking available at the Blue Entrance, or committee member parking/ self-parking at the Green Garage or Red Garage. A voucher for parking will be provided to you. One family member may accompany you back into the Pre-Operative area. If your surgeon has given you special guidelines for eating and drinking prior to surgery, follow their instructions. If no instructions were provided, follow these instructions. The evening before surgery you may eat a low-fat meal up. You may eat and drink until midnight. Do not eat or drink anything, including gum, cough drops, hard candy, or mints after midnight. Take only the morning pills that you have been instructed to take with sips of water, unless otherwise instructed by your doctor. If you have questions about how to take your medication on the day of surgery, contact your surgeon. If you are a diabetic, do not take your morning dose of insulin or oral hypoglycemic (sugar pill), unless otherwise instructed by your physician. We will check your blood glucose level prior to surgery and again after surgery. Shower using dial soap or as advised by your surgeon's office. You may brush your teeth on the morning of surgery but avoid swallowing any excess water. Do not apply any makeup, lotions, powders, or deodorants. Wear loose-fitting, washable clothing that will not interfere with your incision or dressing. Wear comfortable shoes that are easy to get on and off (tennis shoes, non-skid shoes, slippers, etc.). Please remove all jewelry and piercings, including wedding rings. If you cannot remove your rings, we may be required to cut them off if necessary. All nail tanzanian must be removed from your fingernails and toenails. Remove artificial nails from your fingernails. Please leave all valuable items at home. Do not smoke, vape, or chew tobacco or marijuana for 24 hours before surgery. Do not drink alcoholic beverages for 24 hours before surgery. Please be sure to wear comfortable, appropriate clothing. Please remember to bring both your insurance card and a photo ID with you on the day of your surgery. After your surgery: Arrange for a responsible adult (18 years or older) to drive you to and from the hospital if you are having an outpatient procedure. You are not permitted to drive until instructed by your surgeon. The expectation is that this delivery motorcycle driver will remain at the hospital for the duration of your procedure. You are advised to have someone stay with you for at least 24 hours after being under anesthesia. [facility] 10-20-2023 Note Formatting of this n ote might be different from the original. Patient Instructions for [facility]: MAIN OR Prior to surgery: Please contact your surgeon's office for the scheduled time of your surgery. Report to the Surgery Family Waiting Area in the [place] area of [facility] 2 hours prior to your surgery. You may use committee member parking available at the Blue Entrance, or committee member parking/ self-parking at the Green Garage or [facility]. A voucher for parking will be provided to you. One family member may accompany you back into the Pre-Operative area. If your surgeon has given you special guidelines for eating and drinking prior to surgery, follow their instructions. If no instructions were provided, follow these instructions. The evening before surgery you may eat a low-fat meal up. You may eat and drink until midnight. Do not eat or drink anything, including gum, cough drops, hard candy, or mints after midnight. Take only the morning pills that you have been instructed to take with sips of water, unless otherwise instructed by your doctor. If you have questions about how to take your medication on the day of surgery, contact your surgeon. If you are a diabetic, do not take your morning dose of insulin or oral hypoglycemic (sugar pill), unless otherwise instructed by your physician. We will check your blood glucose level prior to surgery and again after surgery. Shower using dial soap or as advised by your surgeon's office. You may brush your teeth on the morning of surgery but avoid swallowing any excess water. Do not apply any makeup, lotions, powders, or deodorants. Wear loose-fitting, washable clothing that will not interfere with your incision or dressing. Wear comfortable shoes that are easy to get on and off (tennis shoes, non-skid shoes, slippers, etc.). Please remove all jewelry and piercings, including wedding rings. If you cannot remove your rings, we may be required to cut them off if necessary. All nail tanzanian must be removed from your fingernails and toenails. Remove artificial nails from your fingernails. Please leave all valuable items at home. Do not smoke, vape, or chew tobacco or marijuana for 24 hours before surgery. Do not drink alcoholic beverages for 24 hours before surgery. Please be sure to wear comfortable, appropriate clothing. Please remember to bring both your insurance card and a photo ID with you on the day of your surgery. After your surgery: Arrange for a responsible adult (18 years or older) to drive you to and from the hospital if you are having an outpatient procedure. You are not permitted to drive until instructed by your surgeon. The expectation is that this delivery motorcycle driver will remain at the hospital for the duration of your procedure. You are advised to have someone stay with you for at least 24 hours after being under anesthesia. [facility] 10-20-2023 Miscellaneous Notes Patient Instructions for [facility]: MAIN OR Prior to surgery: Please contact your surgeon's office for the scheduled time of your surgery. Report to the Surgery Family Waiting Area in the [place] area of [facility] 2 hours prior to your surgery. You may use committee member parking available at the Blue Entrance, or committee member parking/ self-parking at the Green Garage or [facility] Garage. A voucher for parking will be provided to you. One family member may accompany you back into the Pre-Operative area. If your surgeon has given you special guidelines for eating and drinking prior to surgery, follow their instructions. If no instructions were provided, follow these instructions. The evening before surgery you may eat a low-fat meal up. You may eat and drink until midnight. Do not eat or drink anything, including gum, cough drops, hard candy, or mints after midnight. Take only the morning pills that you have been instructed to take with sips of water, unless otherwise instructed by your doctor. If you have questions about how to take your medication on the day of surgery, contact your surgeon. If you are a diabetic, do not take your morning dose of insulin or oral hypoglycemic (sugar pill), unless otherwise instructed by your physician. We will check your blood glucose level prior to surgery and again after surgery. Shower using dial soap or as advised by your surgeon's office. You may brush your teeth on the morning of surgery but avoid swallowing any excess water. Do not apply any makeup, lotions, powders, or deodorants. Wear loose-fitting, washable clothing that will not interfere with your incision or dressing. Wear comfortable shoes that are easy to get on and off (tennis shoes, non-skid shoes, slippers, etc.). Please remove all jewelry and piercings, including wedding rings. If you cannot remove your rings, we may be required to cut them off if necessary. All nail tanzanian must be removed from your fingernails and toenails. Remove artificial nails from your fingernails. Please leave all valuable items at home. Do not smoke, vape, or chew tobacco or marijuana for 24 hours before surgery. Do not drink alcoholic beverages for 24 hours before surgery. Please be sure to wear comfortable, appropriate clothing. Please remember to bring both your insurance card and a photo ID with you on the day of your surgery. After your surgery: Arrange for a responsible adult (18 years or older) to drive you to and from the hospital if you are having an outpatient procedure. You are not permitted to drive until instructed by your surgeon. The expectation is that this delivery motorcycle driver will remain at the hospital for the duration of your procedure. You are advised to have someone stay with you for at least 24 hours after being under anesthesia. documented in this encounter [facility] 10-20-2023 Telephone encounter Note Patient was seen in the office today for pre-op RN only visit. Post-op prescriptions entered after visit and routed to provider to sign. Patient is aware prescriptions will be available to mixing picker tender at pharmacy prior to upcoming surgery. Patient cannot take Gabapentin d/t allergy. Already taking Meloxicam, pt declines Rx for Ibuprofen. Percocet is the only Rx sent for post-op pain per patient preference. [facility] 10-20-2023 Miscellaneous Notes Patient was seen in the office today for pre-op RN only visit. Post-op prescriptions entered after visit and routed to provider to sign. Patient is aware prescriptions will be available to mixing picker tender at pharmacy prior to upcoming surgery. Patient cannot take Gabapentin d/t allergy. Already taking Meloxicam, pt declines Rx for Ibuprofen. Percocet is the only Rx sent for post-op pain per patient preference. documented in this encounter [facility] 10-20-2023 History of Present illness Narrative [facility] [address] BRIAN Toribio [facility] [id number] PRE-OPERATIVE CONSULT Pre-Operative Visit: 10/20/23 Date Of Surgery: 10/29/23 Location Of Surgery: [facility] Pre-Op Dx: Endometriosis determined by laparoscopy Interstitial cystitis Endometrioma of ovary Type Of Surgery: ROBOTIC ASSISTED LAPAROSCOPIC EXCISION OF ENDOMETRIOSIS, LEFT OVARIAN CYSTECTOMY, POSSIBLE OOPHORECTOMY, LYSIS OF ADHESIONS, CYSTOSCOPY POSSIBLE HYDRODISTENTION *MODERATE* *ERAS PROTOCOL* *GLYCEMIC CONTROL PROTOCOL* Moderate complexity 2-4 hours SP Hyst, 7cm left ovarian endometrioma Anesthesia Risk Factors: Manic episode after recent surgery in April with Dr. Meyers, upon waking up from anesthesia. States she is unsure if it was a reaction to anesthesia, states this never occurred with any of her other surgeries. Patient is now on bipolar medication (Seroquel), started in April. Denies sleep apnea. Denies loose teeth/dentures. Medical/Surgical Risks: Denies cardiac concerns or blood clotting disorders. Past Medical History: Diagnosis Date Anxiety Arthritis Back pain Depression Endometriosis Fibromyalgia, primary GERD (gastroesophageal reflux disease) Headache IC (interstitial cystitis) pain on urination at times or if waits too long to urinate Neck pain Patient had no falls in past year Peripheral neuropathy left fingers, left great toe and lower leg Psychiatric disorder Past Surgical History: Procedure Laterality Date APPENDECTOMY 10/2019 HYSTERECTOMY TOTAL ROBOTIC XI N/A 04/16/2022 Procedure: ROBOTIC ASSISTED LAPAROSCOPIC HYSTERECTOMY, EXCISION OF ENDOMETRIOSIS, LYSIS OF ADHESIONS; Surgeon: Bernabe Rouse MD; Location: [facility] Main OR; Service: [employer] LAMINECTOMY 05/05/2018 L4-L5 LAMINECTOMY DISC LUMBAR SINGLE LEVEL Left 04/30/2023 Procedure: Redo Left Lumbar Five-Six Discectomy/Foraminotomy; Surgeon: Jessica Meyers Jr., DO; Location: [facility] NEURO OR; Service: Neurological PELVISCOPY ROBOTIC XI N/A 11/09/2019 Procedure: ROBOTIC ASSISTED LAPAROSCOPIC EXCISION OF ENDOMETRIOSIS, BILATERAL SALPINGECTOMY, BILATERAL URETEROLYSIS, LEFT OVARIAN CYSTECTOMY, BILATERAL OVARIAN SUSPENSION, APPENDECTOMY CYSTOSCOPY WITH HYDRODISTENTION, ERAS PROTOCOL; Surgeon: Bernabe Rouse MD; Location: [facility] Main OR; Service: OBGYN TONSILLECTOMY 04/17/2021 WISDOM TOOTH EXTRACTION Bilateral Age 23 Nursing Documentation: Pre and post-op instructions given to patient. Discussed the OnQ pain pump and how to take care of it and remove it at home. Went over bowel prep instructions with patient and stressed the importance of completing the prep. Surgery handout provided to pt and advised of post-op ph# to call for problems. Pt verb an understanding of all instructions and surgery consent form reviewed. Post-op pain medication prescriptions sent to provider to sign. PAT scheduled today. Last visit with Dr. Banda was 09/12/23 ([facility]). Selin Jang RN documented in this encounter [facility] 09-28-2023 Evaluation + Plan note Associated Problem(s): Endometrioma of ovary Pt extensively counseled on medical vs surgical options. Medical treatment options for endometriosis including pain medication (especially medication that reduces inflammation such as non-steroidal anti-inflammatory drugs including ibuprofen and naproxen), hormonal contraception treatment (including oral control pills, intrauterine contraceptives or the contraceptive vaginal ring), progestins (synthetic progesterone), and GnRH agonists/antagonist (medication that causes a temporary menopause-like condition, including Orilissa and Lupron). Advised of the non-invasive nature of these treatments as well as side effects and long-term use. Discussed switching ibuprofen to Naprosyn or Aleve for continued pain management, reduction of chronic inflammation and help with fatigue symptoms. Chronic pain management discussed. Recommended seeking therapy (CBT and/or EMDR) to discuss coping mechanisms for her chronic pain issues. She was counseled that chronic pelvic pain can lead to anxiety and fears of pain amplify her pain experience. Discussed the need for counseling to deal with chronic pain as well as any depression and anxiety. Discussed importance of pelvic floor therapy pre-op to see if surgery can be avoided and pelvic floor therapy post-op to rehab the pelvic floor muscles. Ambulatory referral given. Discussed the importance of healthy diet and aim for a minimum of 4 hours of weekly exercise to help better manage her symptoms. Patient also advised on symptomology of interstitial cystitis. Advised on dietary and lifestyle changes, bladder triggers, use of Elmiron, outpatient bladder instillations and intraoperative cystoscopy with hydrodistention. Patient also advised on the risks, benefits and alternatives of laparoscopy with diagnosis and treatment of endometrial implants and scar tissue as needed. Advised of the risk of not discovering endometriosis. Pt also advised on robotic assisted laparoscopic excision of endometriosis, lysis of adhesions. Discussed risk of bowel, bladder, ureteral injuries, hemorrhage and vascular injuries. Advised on complications necessitating further operation including laparotomy and/or repair of injured viscera depending on anatomy, adhesions, bleeding, and progression of the procedure as well as further hospitalization needing time off from work and added expense. Possibility that no cause of pain may be found. Discussed risk of infection, hemorrhage, and blood clots. Advised on risk of recurrence of endometriosis. Pt advised on use of Interceed to reduce adhesion formation. Pt given the opportunity to ask questions which were answered as completely as possible. Advised on enhanced recovery after surgery protocol (ERAS Protocol) and multimodal pain management for postoperative pain control. After lengthy discussion, the patient would like to move forward with robotic assisted laparoscopic excision of endometriosis left ovarian cystectomy possible oophorectomy and will be scheduled accordingly. I personally spent a total of 40 minutes on this encounter, reviewing the charts including prior visits and studies associated with her diagnosis, 30 minutes of telehealth face to face time spent with patient, and 10 minutes of writing notes. [facility] 09-28-2023 Miscellaneous Notes Associated Problem(s): Endometrioma of ovary Pt extensively counseled on medical vs surgical options. Medical treatment options for endometriosis including pain medication (especially medication that reduces inflammation such as non-steroidal anti-inflammatory drugs including ibuprofen and naproxen), hormonal contraception treatment (including oral control pills, intrauterine contraceptives or the contraceptive vaginal ring), progestins (synthetic progesterone), and GnRH agonists/antagonist (medication that causes a temporary menopause-like condition, including Orilissa and Lupron). Advised of the non-invasive nature of these treatments as well as side effects and long-term use. Discussed switching ibuprofen to Naprosyn or Aleve for continued pain management, reduction of chronic inflammation and help with fatigue symptoms. Chronic pain management discussed. Recommended seeking therapy (CBT and/or EMDR) to discuss coping mechanisms for her chronic pain issues. She was counseled that chronic pelvic pain can lead to anxiety and fears of pain amplify her pain experience. Discussed the need for counseling to deal with chronic pain as well as any depression and anxiety. Discussed importance of pelvic floor therapy pre-op to see if surgery can be avoided and pelvic floor therapy post-op to rehab the pelvic floor muscles. Ambulatory referral given. Discussed the importance of healthy diet and aim for a minimum of 4 hours of weekly exercise to help better manage her symptoms. Patient also advised on symptomology of interstitial cystitis. Advised on dietary and lifestyle changes, bladder triggers, use of Elmiron, outpatient bladder instillations and intraoperative cystoscopy with hydrodistention. Patient also advised on the risks, benefits and alternatives of laparoscopy with diagnosis and treatment of endometrial implants and scar tissue as needed. Advised of the risk of not discovering endometriosis. Pt also advised on robotic assisted laparoscopic excision of endometriosis, lysis of adhesions. Discussed risk of bowel, bladder, ureteral injuries, hemorrhage and vascular injuries. Advised on complications necessitating further operation including laparotomy and/or repair of injured viscera depending on anatomy, adhesions, bleeding, and progression of the procedure as well as further hospitalization needing time off from work and added expense. Possibility that no cause of pain may be found. Discussed risk of infection, hemorrhage, and blood clots. Advised on risk of recurrence of endometriosis. Pt advised on use of Interceed to reduce adhesion formation. Pt given the opportunity to ask questions which were answered as completely as possible. Advised on enhanced recovery after surgery protocol (ERAS Protocol) and multimodal pain management for postoperative pain control. After lengthy discussion, the patient would like to move forward with robotic assisted laparoscopic excision of endometriosis left ovarian cystectomy possible oophorectomy and will be scheduled accordingly. I personally spent a total of 40 minutes on this encounter, reviewing the charts including prior visits and studies associated with her diagnosis, 30 minutes of telehealth face to face time spent with patient, and 10 minutes of writing notes. Associated Problem(s): Interstitial cystitis Patient advised on symptomology of interstitial cystitis (chronic bladder pain syndrome). Advised on dietary and lifestyle changes. Reduction of caffeine, citrus and tomatoes. Advised on the use of amitriptyline and hydroxyzine. Discussed the risks, benefits, indications, side effects, and alternatives of these medications. Advised on use of Elmiron. Discussed the potential risk of visual changes with long-term use. Advised on outpatient bladder instillations. Advised on undergoing 6 sessions 2 weeks apart each for optimal therapeutic response. Advised on intra-operative hydro-distention. Advised that in general it last approximately 3 to 9 months which is a time she should spend with lifestyle changes. Will add cystoscopy and hydrodistention to the procedure. documented in this encounter [facility] 09-28-2023 Evaluation + Plan note Associated Problem(s): Interstitial cystitis Patient advised on symptomology of interstitial cystitis (chronic bladder pain syndrome). Advised on dietary and lifestyle changes. Reduction of caffeine, citrus and tomatoes. Advised on the use of amitriptyline and hydroxyzine. Discussed the risks, benefits, indications, side effects, and alternatives of these medications. Advised on use of Elmiron. Discussed the potential risk of visual changes with long-term use. Advised on outpatient bladder instillations. Advised on undergoing 6 sessions 2 weeks apart each for optimal therapeutic response. Advised on intra-operative hydro-distention. Advised that in general it last approximately 3 to 9 months which is a time she should spend with lifestyle changes. Will add cystoscopy and hydrodistention to the procedure. [facility] 09-12-2023 Note [facility] [address] [place] [id number] TELEHEALTH VISIT Patient Name: Caroline Guillen : 1990 MR #: [id number] SUBJECTIVE: Patient Location: Verified Patient is located in the [facility]. Patient Identification: Verified patient identity by Name and Date of Video Visit Consent Statement: I discussed risks, benefits and alternatives of a real-time synchronous audiovisual consultation with the patient (and any accompanying persons) including the risks that the patient's personal health details and medical records will be discussed over real-time, synchronous, interactive video/audio/telecommunication technology, the visit will not be recorded without the express consent of both the provider and the patient, and that there are some limitations compared to [id number] evaluations. We elected to proceed. Caroline Guillen is a 32 y.o. female who presents for Endometriosis, Ovarian Cyst, and Follow-up (Patient presents today for telehealth visit to follow-up recently diagnosed 7 cm ovarian cyst, suspected endometrioma.) Patient notes that she is status post hysterectomy for endometriosis. She was diagnosed with a 7 cm endometrioma when she went to the emergency room recently. She is undergone spinal surgery and feels like her pain has improved in general but she continues to have pressure and leg numbness that her neurosurgeon suspects may be secondary to her endometrioma. She states that she felt great 4 to 6 weeks postop. She subsequently developed left leg pain. She also notes severe right-sided pain. She originally considered using Orilissa but was recently started on a medication for depression and is concerned that the Orilissa may worsen that. She is undergoing a test for thoracic outlet syndrome. Patient's past medical, surgical, social, and family histories have been reviewed and updated in the chart. Review of [employer] History: Past Medical History: Diagnosis Date Anxiety Arthritis Back pain Depression Endometriosis Fibromyalgia, primary GERD (gastroesophageal reflux disease) Headache IC (interstitial cystitis) pain on urination at times or if waits too long to urinate Neck pain Patient had no falls in past year Peripheral neuropathy left fingers, left great toe and lower leg Psychiatric disorder Past Surgical History: Procedure Laterality Date APPENDECTOMY 10/2019 HYSTERECTOMY TOTAL ROBOTIC XI N/A 04/16/2022 Procedure: ROBOTIC ASSISTED LAPAROSCOPIC HYSTERECTOMY, EXCISION OF ENDOMETRIOSIS, LYSIS OF ADHESIONS; Surgeon: Bernabe Rouse MD; Location: [facility] Main OR; Service: [employer] LAMINECTOMY 05/05/2018 L4-L5 LAMINECTOMY DISC LUMBAR SINGLE LEVEL Left 04/30/2023 Procedure: Redo Left Lumbar Five-Six Discectomy/Foraminotomy; Surgeon: Jessica Meyers Jr., ; Location: [facility] NEURO OR; Service: Neurological PELVISCOPY ROBOTIC XI N/A 11/09/2019 Procedure: ROBOTIC ASSISTED LAPAROSCOPIC EXCISION OF ENDOMETRIOSIS, BILATERAL SALPINGECTOMY, BILATERAL URETEROLYSIS, LEFT OVARIAN CYSTECTOMY, BILATERAL OVARIAN SUSPENSION, APPENDECTOMY CYSTOSCOPY WITH HYDRODISTENTION, ERAS PROTOCOL; Surgeon: Bernabe Rouse MD; Location: [facility] Main OR; Service: OBGYN TONSILLECTOMY 04/17/2021 WISDOM TOOTH EXTRACTION Bilateral Age 23 Family History Problem Relation Age of Onset Unknown Mother pt does not go to the doctor Unknown Father never met him Anesthesia problems Neg Hx Social History Socioeconomic History Marital status: Spouse name: Ivan Number of children: 0 Tobacco Use Smoking status: Never Smokeless tobacco: Never Vaping Use Vaping status: Never Used Substance and Sexual Activity Alcohol use: Yes Comment: yearly ,holidays Drug use: Yes Types: Marijuana Comment: gummies Sexual activity: Yes Partners: Male control/protection: Surgical Comment: S/P LS BS OBJECTIVE: There were no vitals filed for this visit. There is no height or weight on file to calculate BMI. Physical Examination: Physical Exam Constitutional: Appearance: Normal appearance. She is well-developed. HENT: Head: Normocephalic and atraumatic. Pulmonary: Effort: Pulmonary effort is normal. Neurological: Mental Status: She is alert and oriented to person, place, and time. Psychiatric: Behavior: Behavior normal. Thought Content: Thought content normal. Judgment: Judgment normal. Vitals reviewed. Exam conducted with a retail and restaurant present. ASSESSMENT/PLAN: Caroline Guillen is a 32 y.o. female who presents for: Problem List Diagnosed Endometriosis determined by laparoscopy Relevant Orders Case Request Operating Room: ROBOTIC ASSISTED LAPAROSCOPIC EXCISION OF ENDOMETRIOSIS, LEFT OVARIAN CYSTECTOMY, POSSIBLE OOPHORECTOMY, LYSIS OF ADHESIONS, CYSTOSCOPY POSSIBLE HYD (more content not included)... [facility] 09-12-2023 History of Present illness Narrative [facility] [address] [facility] [id number] TELEHEALTH VISIT Patient Name: Caroline Guillen : 1990 MR #: [id number] SUBJECTIVE: Patient Location: Verified Patient is located in the [facility]. Patient Identification: Verified patient identity by Name and Date of Video Visit Consent Statement: I discussed risks, benefits and alternatives of a real-time synchronous audiovisual consultation with the patient (and any accompanying persons) including the risks that the patient s personal health details and medical records will be discussed over real-time, synchronous, interactive video/audio/telecommunication technology, the visit will not be recorded without the express consent of both the provider and the patient, and that there are some limitations compared to [id number] evaluations. We elected to proceed. Caroline Guillen is a 32 y.o. female who presents for Endometriosis, Ovarian Cyst, and Follow-up (Patient presents today for telehealth visit to follow-up recently diagnosed 7 cm ovarian cyst, suspected endometrioma.) Patient notes that she is status post hysterectomy for endometriosis. She was diagnosed with a 7 cm endometrioma when she went to the emergency room recently. She is undergone spinal surgery and feels like her pain has improved in general but she continues to have pressure and leg numbness that her neurosurgeon suspects may be secondary to her endometrioma. She states that she felt great 4 to 6 weeks postop. She subsequently developed left leg pain. She also notes severe right-sided pain. She originally considered using Orilissa but was recently started on a medication for depression and is concerned that the Orilissa may worsen that. She is undergoing a test for thoracic outlet syndrome. Patient's past medical, surgical, social, and family histories have been reviewed and updated in the chart. Review of Systems [employer] History: Past Medical History: Diagnosis Date Anxiety Arthritis Back pain Depression Endometriosis Fibromyalgia, primary GERD (gastroesophageal reflux disease) Headache IC (interstitial cystitis) pain on urination at times or if waits too long to urinate Neck pain Patient had no falls in past year Peripheral neuropathy left fingers, left great toe and lower leg Psychiatric disorder Past Surgical History: Procedure Laterality Date APPENDECTOMY 10/2019 HYSTERECTOMY TOTAL ROBOTIC XI N/A 04/16/2022 Procedure: ROBOTIC ASSISTED LAPAROSCOPIC HYSTERECTOMY, EXCISION OF ENDOMETRIOSIS, LYSIS OF ADHESIONS; Surgeon: Bernabe Rouse MD; Location: [facility] Main OR; Service: [employer] LAMINECTOMY 05/05/2018 L4-L5 LAMINECTOMY DISC LUMBAR SINGLE LEVEL Left 04/30/2023 Procedure: Redo Left Lumbar Five-Six Discectomy/Foraminotomy; Surgeon: Jessica Meyers Jr. DO; Location: [facility] OR; Service: Neurological PELVISCOPY ROBOTIC XI N/A 11/09/2019 Procedure: ROBOTIC ASSISTED LAPAROSCOPIC EXCISION OF ENDOMETRIOSIS, BILATERAL SALPINGECTOMY, BILATERAL URETEROLYSIS, LEFT OVARIAN CYSTECTOMY, BILATERAL OVARIAN SUSPENSION, APPENDECTOMY CYSTOSCOPY WITH HYDRODISTENTION, ERAS PROTOCOL; Surgeon: Bernabe Rouse MD; Location: [facility] Main OR; Service: OBGYN TONSILLECTOMY 04/17/2021 WISDOM TOOTH EXTRACTION Bilateral Age 23 Family History Problem Relation Age of Onset Unknown Mother pt does not go to the doctor Unknown Father never met him Anesthesia problems Neg Hx Social History Socioeconomic History Marital status: Spouse name: Ivan Number of children: 0 Tobacco Use Smoking status: Never Smokeless tobacco: Never Vaping Use Vaping status: Never Used Substance and Sexual Activity Alcohol use: Yes Comment: yearly ,holidays Drug use: Yes Types: Marijuana Comment: gummies Sexual activity: Yes Partners: Male control/protection: Surgical Comment: S/P LS BS OBJECTIVE: There were no vitals filed for this visit. There is no height or weight on file to calculate BMI. Physical Examination: Physical Exam Constitutional: Appearance: Normal appearance. She is well-developed. HENT: Head: Normocephalic and atraumatic. Pulmonary: Effort: Pulmonary effort is normal. Neurological: Mental Status: She is alert and oriented to person, place, and time. Psychiatric: Behavior: Behavior normal. Thought Content: Thought content normal. Judgment: Judgment normal. Vitals reviewed. Exam conducted with a retail and restaurant present. ASSESSMENT/PLAN: Caroline Guillen is a 32 y.o. female who presents for: Problem List Diagnosed Endometriosis determined by laparoscopy Relevant Orders Case Request Operating Room: ROBOTIC ASSISTED LAPAROSCOPIC EXCISION OF ENDOMETRIOSIS, LEFT OVARIAN CYSTECTOMY, POSSIBLE OOPHORECTOMY, LYSIS OF ADHESIONS, CYSTOSCOPY POSSIBLE HYDRODISTENTION *MODERATE* *ERAS PROTOCOL* *GLYCEMIC CONTROL PROTOCOL* Interstitial cystitis Patient advised on symptomology of interstitial cystitis (chronic bladder pain syndrome). Advised on dietary and lifestyle changes. Reduction of caffeine, citrus and tomatoes. Advised on the use of amitriptyline and hydroxyzine. Discussed the risks, benefits, indications, side effects, and alternatives of these medications. Advised on use of Elmiron. Discussed the potential risk of visual changes with long-term use. Advised on outpatient bladder instillations. Advised on undergoing 6 sessions 2 weeks apart each for optimal therapeutic response. Advised on intra-operative hydro-distention. Advised that in general it last approximately 3 to 9 months which is a time she should spend with lifestyle changes. Will add cystoscopy and hydrodistention to the procedure. Relevant Orders Case Request Operating Room: ROBOTIC ASSISTED LAPAROSCOPIC EXCISION OF ENDOMETRIOSIS, LEFT OVARIAN CYSTECTOMY, POSSIBLE OOPHORECTOMY, LYSIS OF ADHESIONS, CYSTOSCOPY POSSIBLE HYDRODISTENTION *MODERATE* *ERAS PROTOCOL* *GLYCEMIC CONTROL PROTOCOL* Endometrioma of ovary Pt extensively counseled on medical vs surgical options. Medical treatment options for endometriosis including pain medication (especially medication that reduces inflammation such as non-steroidal anti-inflammatory drugs including ibuprofen and naproxen), hormonal contraception treatment (including oral control pills, intrauterine contraceptives or the contraceptive vaginal ring), progestins (synthetic progesterone), and GnRH agonists/antagonist (medication that causes a temporary menopause-like condition, including Orilissa and Lupron). Advised of the non-invasive nature of these treatments as well as side effects and long-term use. Discussed switching ibuprofen to Naprosyn or Aleve for continued pain management, reduction of chronic inflammation and help with fatigue symptoms. Chronic pain management discussed. Recommended seeking therapy (CBT and/or EMDR) to discuss coping mechanisms for her chronic pain issues. She was counseled that chronic pelvic pain can lead to anxiety and fears of pain amplify her pain experience. Discussed the need for counseling to deal with chronic pain as well as any depression and anxiety. Discussed importance of pelvic floor therapy pre-op to see if surgery can be avoided and pelvic floor therapy post-op to rehab the pelvic floor muscles. Ambulatory referral given. Discussed the importance of healthy diet and aim for a minimum of 4 hours of weekly exercise to help better manage her symptoms. Patient also advised on symptomology of interstitial cystitis. Advised on dietary and lifestyle changes, bladder triggers, use of Elmiron, outpatient bladder instillations and intraoperative cystoscopy with hydrodistention. Patient also advised on the risks, benefits and alternatives of laparoscopy with diagnosis and treatment of endometrial implants and scar tissue as needed. Advised of the risk of not discovering endometriosis. Pt also advised on robotic assisted laparoscopic excision of endometriosis, lysis of adhesions. Discussed risk of bowel, bladder, ureteral injuries, hemorrhage and vascular injuries. Advised on complications necessitating further operation including laparotomy and/or repair of injured viscera depending on anatomy, adhesions, bleeding, and progression of the procedure as well as further hospitalization needing time off from work and added expense. Possibility that no cause of pain may be found. Discussed risk of infection, hemorrhage, and blood clots. Advised on risk of recurrence of endometriosis. Pt advised on use of Interceed to reduce adhesion formation. Pt given the opportunity to ask questions which were answered as completely as possible. Advised on enhanced recovery after surgery protocol (ERAS Protocol) and multimodal pain management for postoperative pain control. After lengthy discussion, the patient would like to move forward with robotic assisted laparoscopic excision of endometriosis left ovarian cystectomy possible oophorectomy and will be scheduled accordingly. I personally spent a total of 40 minutes on this encounter, reviewing the charts including prior visits and studies associated with her diagnosis, 30 minutes of telehealth face to face time spent with patient, and 10 minutes of writing notes. Relevant Orders Case Request Operating Room: ROBOTIC ASSISTED LAPAROSCOPIC EXCISION OF ENDOMETRIOSIS, LEFT OVARIAN CYSTECTOMY, POSSIBLE OOPHORECTOMY, LYSIS OF ADHESIONS, CYSTOSCOPY POSSIBLE HYDRODISTENTION *MODERATE* *ERAS PROTOCOL* *GLYCEMIC CONTROL PROTOCOL* Return for Pre Op Visit with the Nurse, Surgery, Post Op Visit. Bernabe Rouse MD documented in this encounter [facility] 08-12-2023 Note [facility] [address] [place] [id number] Name: Caroline Guillen : 1990 Date: 08/12/23 Caroline Guillen is a 32 y.o. female presenting for follow up from ED visit in [place] on 08/07/2023. Hx of hysterectomy/EOE [address] Banda. Went to [place] ED for RLQ pain on 08/06. Hx of IC that is not well managed at this time; takes Levsin for it and monitors diet. She is here with , Ivan, and states that the car ride here put her in screaming pain and has to lie on the back seat. They have records from ED and CT scan and U/S scanned to records. I have personally reviewed the past medical, surgical, social, and family history for Ms. Caroline Guillen. I have also reviewed the home medications, allergies, and the problem list for this patient. Review of Systems Constitutional: Negative for chills, fatigue and fever. Gastrointestinal: Negative for constipation, diarrhea, nausea and vomiting. Genitourinary: Positive for pelvic pain. Negative for urgency. Musculoskeletal: Positive for back pain. Psychiatric/Behavioral: Negative for dysphoric mood. BP 125/86 (BP Location: Left arm, Patient Position: Sitting, BP Cuff Size: Adult) Pulse 88 Ht 5' 8 Wt 76.4 kg (168 lb 6.4 oz) LMP (LMP Unknown) BMI 25.61 kg/m Physical Exam Vitals reviewed. Constitutional: General: She is not in acute distress. Appearance: Normal appearance. She is not ill-appearing or diaphoretic. Genitourinary: General: Normal vulva. Vagina: No vaginal discharge, erythema or tenderness. Rectum: No external hemorrhoid. Comments: Uterus and cervix absent. Large/hard mass noted at top and back of vaginal vault, tender, deviated to center, consistent with ovarian mass Encounter Diagnosis Name Primary? Left ovarian cyst Yes Orders Placed This Encounter CA 19-9 Standing Status: Future Standing Expiration Date: 08/11/2024 Order Specific Question: Release to patient Answer: Immediate CA 125 Standing Status: Future Standing Expiration Date: 08/11/2024 Order Specific Question: Release to patient Answer: Immediate AFP tumor marker Standing Status: Future Standing Expiration Date: 08/11/2024 Order Specific Question: Release to patient Answer: Immediate methen-sod phos-meth blue-hyos 81.6-40.8-0.12 mg Tab Sig: Take 1 tablet by mouth 4 (four) times a day . Dispense: 120 tablet Refill: 1 Enlarged mass palpated on exam. Pt states she had used laxative and had bowel movement, so not likely to be hard stool. Nonspecific cancer tumor markers ordered and pt understands they can be elevated with endometriosis/endometrioma,and are not specific for ovarian cancer. This is not likely torsion. Pain may be part of her uncontrolled IC symptoms. Has not tried urogesic blue before and this was sent to pharmacy. She would like to follow with soonest available surgeon for cystectomy. Understands typical treatment is observation with imaging in a couple months if not symptomatic. She will go to [facility] ED if pain worsens, is unrelenting. Return for consult with surgeon in the office [facility]. Evita Reyes, BORA 08/12/23 Addendum: noted that pt had hysterectomy 2022 and bilateral salpingectomy 2019 with EOE. AUTHENTICATED BY EVITA REYES, ON 08/20/2023 08:08:35 [facility] 08-12-2023 History of Present illness Narrative [facility] [address] [place] [facility] [phone] Name: Caroline Guillen : 1990 Date: 08/12/23 Caroline Guillen is a 32 y.o. female presenting for follow up from ED visit in [place] on 08/07/2023. Hx of hysterectomy/BS/EOE [address] Banda. Went to [place] ED for RLQ pain on 08/06. Hx of IC that is not well managed at this time; takes Levsin for it and monitors diet. She is here with , Ivan, and states that the car ride here put her in screaming pain and has to lie on the back seat. They have records from ED and CT scan and U/S scanned to records. I have personally reviewed the past medical, surgical, social, and family history for Ms. Caroline Guillen. I have also reviewed the home medications, allergies, and the problem list for this patient. Review of Systems Constitutional: Negative for chills, fatigue and fever. Gastrointestinal: Negative for constipation, diarrhea, nausea and vomiting. Genitourinary: Positive for pelvic pain. Negative for urgency. Musculoskeletal: Positive for back pain. Psychiatric/Behavioral: Negative for dysphoric mood. BP 125/86 (BP Location: Left arm, Patient Position: Sitting, BP Cuff Size: Adult) Pulse 88 Ht 5' 8 Wt 76.4 kg (168 lb 6.4 oz) LMP (LMP Unknown) BMI 25.61 kg/m Physical Exam Vitals reviewed. Constitutional: General: She is not in acute distress. Appearance: Normal appearance. She is not ill-appearing or diaphoretic. Genitourinary: General: Normal vulva. Vagina: No vaginal discharge, erythema or tenderness. Rectum: No external hemorrhoid. Comments: Uterus and cervix absent. Large/hard mass noted at top and back of vaginal vault, tender, deviated to center, consistent with ovarian mass Encounter Diagnosis Name Primary? Left ovarian cyst Yes Orders Placed This Encounter CA 19-9 Standing Status: Future Standing Expiration Date: 08/11/2024 Order Specific Question: Release to patient Answer: Immediate CA 125 Standing Status: Future Standing Expiration Date: 08/11/2024 Order Specific Question: Release to patient Answer: Immediate AFP tumor marker Standing Status: Future Standing Expiration Date: 08/11/2024 Order Specific Question: Release to patient Answer: Immediate methen-sod phos-meth blue-hyos 81.6-40.8-0.12 mg Tab Sig: Take 1 tablet by mouth 4 (four) times a day . Dispense: 120 tablet Refill: 1 Enlarged mass palpated on exam. Pt states she had used laxative and had bowel movement, so not likely to be hard stool. Nonspecific cancer tumor markers ordered and pt understands they can be elevated with endometriosis/endometrioma,and are not specific for ovarian cancer. This is not likely torsion as she is not in unrelenting pain. Pain may be part of her uncontrolled IC symptoms. Has not tried urogesic blue before and this was sent to pharmacy. She would like to follow with soonest available surgeon for cystectomy. Understands typical treatment is observation with imaging in a couple months if not symptomatic. She will go to [facility] ED if pain worsens, is unrelenting, to rule out torsion. Return for consult with surgeon in the office [facility]. Evita Reyes CNP 08/12/23 documented in this encounter [facility] 08-12-2023 History of Present illness Narrative [facility] [address] [facility] [id number] Name: Caroline Guillen : 1990 Date: 08/12/23 Caroline Guillen is a 32 y.o. female presenting for follow up from ED visit in [place] on 08/07/2023. Hx of hysterectomy/EOE [address] Banda. Went to [place] ED for RLQ pain on 08/06. Hx of IC that is not well managed at this time; takes Levsin for it and monitors diet. She is here with , Ivan, and states that the car ride here put her in screaming pain and has to lie on the back seat. They have records from ED and CT scan and U/S scanned to records. I have personally reviewed the past medical, surgical, social, and family history for Ms. Caroline Guillen. I have also reviewed the home medications, allergies, and the problem list for this patient. Review of Systems Constitutional: Negative for chills, fatigue and fever. Gastrointestinal: Negative for constipation, diarrhea, nausea and vomiting. Genitourinary: Positive for pelvic pain. Negative for urgency. Musculoskeletal: Positive for back pain. Psychiatric/Behavioral: Negative for dysphoric mood. BP 125/86 (BP Location: Left arm, Patient Position: Sitting, BP Cuff Size: Adult) Pulse 88 Ht 5' 8 Wt 76.4 kg (168 lb 6.4 oz) LMP (LMP Unknown) BMI 25.61 kg/m Physical Exam Vitals reviewed. Constitutional: General: She is not in acute distress. Appearance: Normal appearance. She is not ill-appearing or diaphoretic. Genitourinary: General: Normal vulva. Vagina: No vaginal discharge, erythema or tenderness. Rectum: No external hemorrhoid. Comments: Uterus and cervix absent. Large/hard mass noted at top and back of vaginal vault, tender, deviated to center, consistent with ovarian mass Encounter Diagnosis Name Primary? Left ovarian cyst Yes Orders Placed This Encounter CA 19-9 Standing Status: Future Standing Expiration Date: 08/11/2024 Order Specific Question: Release to patient Answer: Immediate CA 125 Standing Status: Future Standing Expiration Date: 08/11/2024 Order Specific Question: Release to patient Answer: Immediate AFP tumor marker Standing Status: Future Standing Expiration Date: 08/11/2024 Order Specific Question: Release to patient Answer: Immediate methen-sod phos-meth blue-hyos 81.6-40.8-0.12 mg Tab Sig: Take 1 tablet by mouth 4 (four) times a day . Dispense: 120 tablet Refill: 1 Enlarged mass palpated on exam. Pt states she had used laxative and had bowel movement, so not likely to be hard stool. Nonspecific cancer tumor markers ordered and pt understands they can be elevated with endometriosis/endometrioma,and are not specific for ovarian cancer. This is not likely torsion. Pain may be part of her uncontrolled IC symptoms. Has not tried urogesic blue before and this was sent to pharmacy. She would like to follow with soonest available surgeon for cystectomy. Understands typical treatment is observation with imaging in a couple months if not symptomatic. She will go to [facility] ED if pain worsens, is unrelenting. Return for consult with surgeon in the office [facility]. Evita Reyes CNP 08/12/23 Addendum: noted that pt had hysterectomy 2022 and bilateral salpingectomy 2019 with EOE. documented in this encounter [facility] 08-01-2023 Note Elena Cowan DO [address] [facility] [id number] Caroline Guillen 1990 Dear Elena Cowan DO Amanda M Huddleston is here for follow up. As you know she underwent left L5-6 discectomy on 04/30/2023. Unfortunately she continues to have ongoing left lower extremity pain. She notes mostly symptoms in the left calf that she describes as spasms/tingling/crawling/burning sensation. It also feels like there is a vice around her ankle. Occasionally she will get electrical pain across the top of her foot as well. She also has pain in her groin that goes all the way around her leg and buttock pain as well. She had to transition from land therapy to aquatic therapy due to her symptoms. She takes Mobic intermittently as it does seem to give her some GI upset. Past Medical History: Diagnosis Date Anxiety Arthritis Back pain Depression Endometriosis Fibromyalgia, primary GERD (gastroesophageal reflux disease) Headache IC (interstitial cystitis) pain on urination at times or if waits too long to urinate Neck pain Patient had no falls in past year Peripheral neuropathy left fingers, left great toe and lower leg Psychiatric disorder Social History Socioeconomic History Marital status: Spouse name: Ivan Number of children: 0 Tobacco Use Smoking status: Never Smokeless tobacco: Never Vaping Use Vaping Use: Never used Substance and Sexual Activity Alcohol use: Yes Comment: yearly ,holidays Drug use: Yes Types: Marijuana Comment: gummies Sexual activity: Yes Partners: Male control/protection: Surgical Comment: S/P LS BS Current Outpatient Medications Medication Sig Dispense Refill acetaminophen (TYLENOL ORAL) Take 1,000 mg by mouth every 6 (six) hours as needed Reasons: pain. ascorbic acid, vitamin C, (VITAMIN C) 1000 MG TbER Take 1 capsule by mouth 2 (two) times a day 1999 . cholecalciferol, vitamin D3, 50 mcg (2,000 unit) cap Take 2 (two) capsules by mouth daily . docusate sodium (COLACE) 100 MG capsule Take 1 (one) capsule (100 mg total) by mouth 2 (two) times a day . loratadine (CLARITIN) 10 mg tablet Take 1 (one) tablet (10 mg total) by mouth every evening . methocarbamoL (ROBAXIN) 750 MG tablet Take 1 (one) tablet (750 mg total) by mouth 3 (three) times a day as needed for muscle spasms . 90 tablet 1 omega-3 fatty acids/fish oil (fish oil-omega-3 fatty acids) 300-1,000 mg capsule Take 1 (one) capsule by mouth 3 (three) times a day . omeprazole (PRILOSEC) 40 MG capsule Take 1 (one) capsule (40 mg total) by mouth every evening . psyllium (METAMUCIL) 3.4 gram packet Take 1 (one) packet by mouth every evening . UNABLE TO FIND Med Name: tumeric, curcumin . No current facility-administered medications for this visit. Allergies: Severity Reactions Comments Amlodipine High Shortness Of Breath Itching from Chest to [place] Dexamethasone (pf) High Other (See Comments) Psychosis Prozac [fluoxetine] High Shortness Of Breath Panicky, Shaky, Chest Tightening Risperidone High Shortness Of Breath Itching from Chest to [place] Cymbalta [duloxetine] Not Specified Other (See Comments) Migraines, severe disorientation and dizziness Gabapentin Not Specified Other (See Comments) Suicidal Thoughts [place] Carbonate Not Specified Other (See Comments) Blood Sugar increase Penicillin Not Specified Other (See Comments) Grandfather and mother had anaphylactic reaction so patient avoids it. Nickel Physical Exam: Alert and oriented x 3. Speech is clear and fluent. CN II-XII grossly intact. Manual muscle testing reveals strength in the bilat UE and LE to be 5/5. Sensation intact to light tough in all extremities. Data Reviewed: Left hip x-ray:Osseous mineralization is average for age. Femoral head is well seated in the acetabulum. Joint space is maintained. There is no acute fracture or radiographic evidence of AVN. Soft tissues appear grossly normal. Lumbar MRI: Stable left hemilaminectomy at L4-5. Scar tissue noted within the left ventral epidural space and left foramina appears unchanged. No convincing disc protrusion is seen. Assessment / Plan: Caroline has ongoing left lower extremity radiculopathy after left sided lumbar discectomy on 04/30/2023. She has had to transition from land physical therapy to aquatic therapy due to due to her ongoing symptoms. She is taking Mobic intermittently although has experienced some stomach upset. At this point in time I recommended referral to med spine for consideration of injection and have recommended left lower extremity EMG as well. We will have her follow-up with Dr Meyers in October. Sincerely, Jennifer Russ PA-C, MSPAS AUTHENTICATED BY JENNIFER RUSS, ON 08/01/2023 08:58:32 [facility] 08-01-2023 History of Present illness Narrative Elena Cowan DO [address] [facility] [id number] Caroline M Mindy 1990 Dear Elena Cowan DO Caroline Pricedleston is here for follow up. As you know she underwent left L5-6 discectomy on 04/30/2023. Unfortunately she continues to have ongoing left lower extremity pain. She notes mostly symptoms in the left calf that she describes as spasms/tingling/crawling/burning sensation. It also feels like there is a vice around her ankle. Occasionally she will get electrical pain across the top of her foot as well. She also has pain in her groin that goes all the way around her leg and buttock pain as well. She had to transition from land therapy to aquatic therapy due to her symptoms. She takes Mobic intermittently as it does seem to give her some GI upset. Past Medical History: Diagnosis Date Anxiety Arthritis Back pain Depression Endometriosis Fibromyalgia, primary GERD (gastroesophageal reflux disease) Headache IC (interstitial cystitis) pain on urination at times or if waits too long to urinate Neck pain Patient had no falls in past year Peripheral neuropathy left fingers, left great toe and lower leg Psychiatric disorder Social History Socioeconomic History Marital status: Spouse name: vIan Number of children: 0 Tobacco Use Smoking status: Never Smokeless tobacco: Never Vaping Use Vaping Use: Never used Substance and Sexual Activity Alcohol use: Yes Comment: yearly ,holidays Drug use: Yes Types: Marijuana Comment: jean claude Sexual activity: Yes Partners: Male control/protection: Surgical Comment: S/P LS BS Current Outpatient Medications Medication Sig Dispense Refill acetaminophen (TYLENOL ORAL) Take 1,000 mg by mouth every 6 (six) hours as needed Reasons: pain. ascorbic acid, vitamin C, (VITAMIN C) 1000 MG TbER Take 1 capsule by mouth 2 (two) times a day 1999 . cholecalciferol, vitamin D3, 50 mcg (2,000 unit) cap Take 2 (two) capsules by mouth daily . docusate sodium (COLACE) 100 MG capsule Take 1 (one) capsule (100 mg total) by mouth 2 (two) times a day . loratadine (CLARITIN) 10 mg tablet Take 1 (one) tablet (10 mg total) by mouth every evening . methocarbamoL (ROBAXIN) 750 MG tablet Take 1 (one) tablet (750 mg total) by mouth 3 (three) times a day as needed for muscle spasms . 90 tablet 1 omega-3 fatty acids/fish oil (fish oil-omega-3 fatty acids) 300-1,000 mg capsule Take 1 (one) capsule by mouth 3 (three) times a day . omeprazole (PRILOSEC) 40 MG capsule Take 1 (one) capsule (40 mg total) by mouth every evening . psyllium (METAMUCIL) 3.4 gram packet Take 1 (one) packet by mouth every evening . UNABLE TO FIND Med Name: tumjose roberto, curcumin . No current facility-administered medications for this visit. Allergies: Severity Reactions Comments Amlodipine High Shortness Of Breath Itching from Chest to [place] Dexamethasone (pf) High Other (See Comments) Psychosis Prozac [fluoxetine] High Shortness Of Breath Panicky, Shaky, Chest Tightening Risperidone High Shortness Of Breath Itching from Chest to [place] Cymbalta [duloxetine] Not Specified Other (See Comments) Migraines, severe disorientation and dizziness Gabapentin Not Specified Other (See Comments) Suicidal Thoughts [place] Carbonate Not Specified Other (See Comments) Blood Sugar increase Penicillin Not Specified Other (See Comments) Grandfather and mother had anaphylactic reaction so patient avoids it. Nickel Physical Exam: Alert and oriented x 3. Speech is clear and fluent. CN II-XII grossly intact. Manual muscle testing reveals strength in the bilat UE and LE to be 5/5. Sensation intact to light tough in all extremities. Data Reviewed: Left hip x-ray:Osseous mineralization is average for age. Femoral head is well seated in the acetabulum. Joint space is maintained. There is no acute fracture or radiographic evidence of AVN. Soft tissues appear grossly normal. Lumbar MRI: Stable left hemilaminectomy at L4-5. Scar tissue noted within the left ventral epidural space and left foramina appears unchanged. No convincing disc protrusion is seen. Assessment / Plan: Caroline has ongoing left lower extremity radiculopathy after left sided lumbar discectomy on 04/30/2023. She has had to transition from land physical therapy to aquatic therapy due to due to her ongoing symptoms. She is taking Mobic intermittently although has experienced some stomach upset. At this point in time I recommended referral to med spine for consideration of injection and have recommended left lower extremity EMG as well. We will have her follow-up with Dr Meyers in October. Sincerely, Jennifer Russ PA-C, MSPAS documented in this encounter [facility] 07-14-2023 History of Present illness Narrative Spoke with aren Agarwal at [facility]. Was told that Hip xray's are normally 2-3 view NOT 4 views. Kj LOPEZ aware and order reentered. Patient aware. documented in this encounter [facility] 07-09-2023 History of Present illness Narrative Images from the original note were not included. [facility], NEUROSCIENCE [address] [place] [id number] 07/08/23 PATIENT DEMOGRAPHICS: Caroline Guillen 1990 [address] [facility] [id number] Cowan, I had the pleasure of seeing Caroline Guillen on 07/08/23 in neurosurgical follow up HISTORY OF PRESENT ILLNESS AND INTERIM COURSE: Ms. Guillen presents today for her second postop follow-up. She had a left L5-6 discectomy on 04/30/2023. 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 She also was advised to remain off of work for a full 12 weeks. Unfortunately since her last visit she continues to have left radicular leg symptoms. Specifically she has intermittent radiating pain down the back of her leg to her calf. She also has intermittent pain just in her calf on the left. She has a history of left hip issues and yesterday during evaluation with physical therapy she developed left hip pain radiating around her hip from her buttock to her anterior hip. She has numbness on the lateral aspect of her left foot. She has been taking Mobic daily for several weeks now and is developing some GI symptoms secondary to it. She has a history of a possible manic episode after taking dexamethasone after surgery and she reports that during this timeframe she may have overexerted herself and she is concerned for reinjury. PAST MEDICAL, SURGICAL, FAMILY, AND SOCIAL HISTORY Changes noted in the patients history are noted below and in the HPI. Their full history has been documented in the chart and is available for review upon request. HOME MEDICATIONS: Medication List Accurate as of July 08, 2023 2:55 PM. If you have any questions, ask your nurse or doctor. CONTINUE taking these medications ascorbic acid (vitamin C) 1000 MG Tber Commonly known as: VITAMIN C cholecalciferol (vitamin D3) 50 mcg (2,000 unit) Cap docusate sodium 100 MG capsule Commonly known as: COLACE fish oil-omega-3 fatty acids 300-1,000 mg capsule loratadine 10 mg tablet Commonly known as: CLARITIN omeprazole 40 MG capsule Commonly known as: PRILOSEC psyllium 3.4 gram packet Commonly known as: METAMUCIL TYLENOL ORAL UNABLE TO FIND PHYSICAL EXAM: LMP (LMP Unknown) Alert and Oriented x 3 CN II-XII grossly in tact Pupils equal, round, reactive to light Face symmetric Tongue protrudes midline Moves all extremities to command No drift Sensation grossly in tact Incision well-healed ASSESSMENT AND PLAN: Ms. Guillen is a pleasant 32-year-old female who is 2 months postop from an L5-6 discectomy on the left. Unfortunately she has continued to have radicular pain symptoms that vary in presentation. Her current medication of Mobic is not fully controlling her symptoms and is causing her to have some GI issues as well. She is unable to switch to other medications though due to her current medications and family history of issues with certain medications. I have offered her Robaxin in addition to her current regimen for symptom control. I have also provided her with a referral to medical spine for other treatment options that are not specifically medication such as injections. She continues with physical therapy right now but we discussed that perhaps with her current symptoms and possible reinjury that she should decrease the intensity of therapy and limit her weights to 10 pounds currently. We will also order a repeat MRI of the lumbar spine to evaluate if she has any indication of reherniation or new pathology that could be contributing to her symptoms as she is not improving as we would expect. Finally I have ordered hip x-ray for her left hip as she reports long standing issues with her hip mobility and function that she believes may be independent to her spinal disease and she would like to start the evaluation process. We will see her back in 1 month to review her imaging and reevaluate how she is progressing with physical therapy and medical spine. FOLLOW UP: No follow-ups on file. Thank you for allowing me the opportunity to assist in the care of this pleasant patient. Please do not hesitate to contact me with any further questions or concerns. RASHAAD Longoria Department of Neurosurgery [address], [address] [place], [place] [address] ORDERS No orders of the defined types were placed in this encounter. documented in this encounter [facility] 07-09-20[address] Note [facility] MEDICAL OFFICE [facility], NEUROSCIENCE [address] [place] [phone] 07/08/23 PATIENT DEMOGRAPHICS: Caroline Guillen [address] [place] [id number] Dear Dr. Cowan, I had the pleasure of seeing Caroline Guillen on 07/08/23 in neurosurgical follow up HISTORY OF PRESENT ILLNESS AND INTERIM COURSE: Ms. Giullen presents today for her second postop follow-up. She had a left L5-6 discectomy on 04/30/2023. 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 She also was advised to remain off of work for a full 12 weeks. Unfortunately since her last visit she continues to have left radicular leg symptoms. Specifically she has intermittent radiating pain down the back of her leg to her calf. She also has intermittent pain just in her calf on the left. She has a history of left hip issues and yesterday during evaluation with physical therapy she developed left hip pain radiating around her hip from her buttock to her anterior hip. She has numbness on the lateral aspect of her left foot. She has been taking Mobic daily for several weeks now and is developing some GI symptoms secondary to it. She has a history of a possible manic episode after taking dexamethasone after surgery and she reports that during this timeframe she may have overexerted herself and she is concerned for reinjury. PAST MEDICAL, SURGICAL, FAMILY, AND SOCIAL HISTORY Changes noted in the patients history are noted below and in the HPI. Their full history has been documented in the chart and is available for review upon request. HOME MEDICATIONS: Medication List Accurate as of July 08, 2023 2:55 PM. If you have any questions, ask your nurse or doctor. CONTINUE taking these medications ascorbic acid (vitamin C) 1000 MG Tber Commonly known as: VITAMIN C cholecalciferol (vitamin D3) 50 mcg (2,000 unit) Cap docusate sodium 100 MG capsule Commonly known as: COLACE fish oil-omega-3 fatty acids 300-1,000 mg capsule loratadine 10 mg tablet Commonly known as: CLARITIN omeprazole 40 MG capsule Commonly known as: PRILOSEC psyllium 3.4 gram packet Commonly known as: METAMUCIL TYLENOL ORAL UNABLE TO FIND PHYSICAL EXAM: LMP (LMP Unknown) Alert and Oriented x 3 CN II-XII grossly in tact Pupils equal, round, reactive to light Face symmetric Tongue protrudes midline Moves all extremities to command No drift Sensation grossly in tact Incision well-healed ASSESSMENT AND PLAN: Ms. Guillen is a pleasant 32-year-old female who is 2 months postop from an L5-6 discectomy on the left. Unfortunately she has continued to have radicular pain symptoms that vary in presentation. Her current medication of Mobic is not fully controlling her symptoms and is causing her to have some GI issues as well. She is unable to switch to other medications though due to her current medications and family history of issues with certain medications. I have offered her Robaxin in addition to her current regimen for symptom control. I have also provided her with a referral to medical spine for other treatment options that are not specifically medication such as injections. She continues with physical therapy right now but we discussed that perhaps with her current symptoms and possible reinjury that she should decrease the intensity of therapyand limit her weights to 10 pounds currently. We will also order a repeat MRI of the lumbar spine to evaluate if she has any indication of reherniation or new pathology that could be contributing to her symptoms as she is not improving as we would expect. Finally I have ordered hip x-ray for her left hip as she reports long standing issues with her hip mobility and function that she believes may be independent to her spinal disease and she would like to start the evaluation process. We will see her back in 1 month to review her imaging and reevaluate how she is progressing with physical therapy and medical spine. FOLLOW UP: No follow-ups on file. Thank you for allowing me the opportunity to assist in the care of this pleasant patient. Please do not hesitate to contact me with any further questions or concerns. MOSES Longoria-ACNP Department of Neurosurgery [facility] [address] [place] [address], [address] [place], [place] [address] ORDERS No orders of the defined types were placed in this encounter. AUTHENTICATED BY GLENYS CORTÉS, ON 07/09/2023 15:29:53 [facility] 06-05-2023 History of Present illness Narrative Elena Cowan DO [address] [facility] [id number] Caroline Guillen 1990 Dear Elena Cowan DO Amanda M Huddleston is here for her first postoperative visit after undergoing redo left L5-6 discectomy on 04/30/2023. She tells me she had a rough time after surgery and was not able to sleep for 6 days. There was some question as to whether this was a manic episode or not. 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 She does note some on and off leg pain as well as persistent constipation. She denies any leg numbness or weakness. Past Medical History: Diagnosis Date Anxiety Arthritis Back pain Depression Endometriosis Fibromyalgia, primary GERD (gastroesophageal reflux disease) Headache IC (interstitial cystitis) pain on urination at times or if waits too long to urinate Neck pain Patient had no falls in past year Peripheral neuropathy left fingers, left great toe and lower leg Psychiatric disorder Social History Socioeconomic History Marital status: Spouse name: Ivan Number of children: 0 Tobacco Use Smoking status: Never Smokeless tobacco: Never Vaping Use Vaping Use: Never used Substance and Sexual Activity Alcohol use: Yes Comment: yearly ,holidays Drug use: Yes Types: Marijuana Comment: gummies Sexual activity: Yes Partners: Male control/protection: Surgical Comment: S/P LS BS Current Outpatient Medications Medication Sig Dispense Refill acetaminophen (TYLENOL ORAL) Take 1,000 mg by mouth every 6 (six) hours as needed Reasons: pain. ascorbic acid, vitamin C, (VITAMIN C) 1000 MG TbER Take 1 capsule by mouth 2 (two) times a day 1999 . cholecalciferol, vitamin D3, 50 mcg (2,000 unit) cap Take 2 (two) capsules by mouth daily . docusate sodium (COLACE) 100 MG capsule Take 1 (one) capsule (100 mg total) by mouth 2 (two) times a day . loratadine (CLARITIN) 10 mg tablet Take 1 (one) tablet (10 mg total) by mouth every evening . omega-3 fatty acids/fish oil (fish oil-omega-3 fatty acids) 300-1,000 mg capsule Take 1 (one) capsule by mouth 3 (three) times a day . omeprazole (PRILOSEC) 40 MG capsule Take 1 (one) capsule (40 mg total) by mouth every evening . psyllium (METAMUCIL) 3.4 gram packet Take 1 (one) packet by mouth every evening . UNABLE TO FIND Med Name: tumeric, curcumin . No current facility-administered medications for this visit. Allergies: Amlodipine High Shortness Of Breath Itching from Chest to [place] Dexamethasone (pf) High Other (See Comments) Psychosis Prozac [fluoxetine] High Shortness Of Breath Panicky, Shaky, Chest Tightening Risperidone High Shortness Of Breath Itching from Chest to [place] Cymbalta [duloxetine] Not Specified Other (See Comments) Migraines, severe disorientation and dizziness Gabapentin Not Specified Other (See Comments) Suicidal Thoughts [place] Carbonate Not Specified Other (See Comments) Blood Sugar increase Penicillin Not Specified Other (See Comments) Grandfather and mother had anaphylactic reaction so patient avoids it. Nickel Physical Exam: Alert and oriented x 3. Speech is clear and fluent. CN II-XII grossly intact. Her incision is well healed. She is able to toe walk without difficulty. Assessment / Plan: Cassi is status post left L5-6 discectomy on 04/30/2023. Overall she is doing well with only some intermittent leg pain. At this point in time I would recommend undergoing physical therapy with an emphasis on core strengthening exercises. I do recommend that she remain off work for a full 12 weeks after surgery at to maximize her benefit from physical therapy as well as in the interest of avoiding further surgery down the road. She voiced understanding. We will see her back as scheduled or sooner should the need arise. Sincerely, Jennifer Russ PA-C, MSPAS Review of Systems Caroline Guillen 06/05/23 General Weight Gain: NO Weight Loss: NO Fatigue: NO Fever: NO Chills: NO Night Sweats: NO Insomnia: YES Excessive Sleeping: NO Respiratory Cough: NO Shortness of Breath: NO Wheezing: NO Excessive Snoring: NO Coughing up Blood: NO Endocrine Heat Intolerance: NO Cold Intolerance: NO Excessive Thirst: NO Excessive Hunger: NO Eyes Blurred Vision: NO Double Vision: NO Light Sensitivity: NO Eye Pain: NO Musculoskeletal Muscle Aches/Pain: YES Joint Pain/Swelling: NO Muscle Cramps: NO Muscle Weakness: NO Neck Pain: NO Back Pain: NO Neurologic Difficulty Walking/Falls: NO Headache/Migraine: NO Dizziness/Vertigo: NO Fainting: NO Difficulty with Speech: NO Weakness: NO Tingling/Numbness: NO Tremors: NO Memory Problems: NO Seizures: NO Difficulty Swallowing: YES Altered Taste: NO Cardiovascular Chest Pain: NO Shortness of Breath: NO Palpitations: NO Gastrointestinal Nausea/Vomiting: NO Constipation: YES Diarrhea: NO Bloody Stools: NO Psychiatric/Cognitive Depression: NO Anxiety: YES Hallucinations: NO Problems Concentrating: YES Genitourinary Frequent Urination: YES Incontinence: NO Blood in Urine: NO Urinary Infections: NO Change in Sex Drive: YES Ear/Nose/Throat Hearing Loss: NO Earache: NO Ringing in Ears: NO Facial Pain: NO Chronic Congestion: YES Immunologic Seasonal Allergies: YES Hives and/or Rashes: NO Anabell Johansen RN 06/05/23 documented in this encounter [facility] 06-05-2023 Instructions Esmer Guzman CNP - 06/05/2023 10:44 AM EDT DIETARY FIBER Recommended daily intake of fiber 25-35 gms Consuming a variety of fiber types - such as those found in fruits, vegetables, and whole grains - is most beneficial to general health. Soluble fiber is readily fermented; beneficial bacteria is the colon breakdown of carbohydrates. A byproduct is gas that can stimulate colonic muscles and help soften stool. However, in some people this can cause discomfort. Adding fiber gradually and slowly over time may eliminate the discomfort ( Start low, go slow ). Common sources of soluble fiber include citrus fruits, flaxseeds, and legumes. Soluble fiber dissolves in liquid and insoluble fiber absorbs liquid. Fruits and vegetables are 80-90% water by weight; cooked grains are 70-85% water. Insoluble fiber can absorb up to 15 times it weight in water as it moves through the digestive tract. Examples of insoluble fiber include cellulose (found in legumes, seeds, root vegetables, and vegetables in cabbage family) wheat bran, and corn bran. It is important to consume adequate amounts of liquids along with fiber, particularly with products containing dry fiber such as supplements or dry cereals. Making small, gradual changes can add up to a big difference in the nutritional value of your diet. Cane Beds with fresh foods and don t be afraid to try new foods and recipes. Here are a few practical tips for adding fiber to your diet. Vegetables: Cook in microwave to save time and nutrients; Cook only until tender-crisp to retain taste and nutrients. Beans: Presoaking reduces the gas-producing potential of beans if you discard the soaking water and cook using fresh water. Fruit: Snack on fruit anytime, anywhere; Leave peeling on fruit whenever possible; Use fresh and dried fruit in muffins, pancakes, quick breads, and on top of frozen yogurt. Grains: Choose whole-grain varieties of breads, muffins, bagels, and [place] muffins; Mix barely cooked vegetables with pasta for a quick pasta salad. DIETARY FIBER (PAGE 2) Sampling of dietary fiber content of foods (appx. g/serving) Food serving size grams Food serving size grams VEGETABLES CEREALS Beans (navy), cooked cup 9.5 Silvano s All-Bran cup 8.8 Beans (crowder, black), cooked cup 7.7 [place] s Raisin Bran cup 3.6 Chickpeas (garbanzo beans, cooked cup 6.2 Wheatena, cooked with water cup 3.3 Lentils, cooked cup 7.8 Shredded wheat, plain no sugar 2 biscuits 5.5 Potato (with skin), baked 1 potato 4.4 Restorationist Oats, honey and raisins cup 4.2 Peas, (frozen), cooked cup 4.4 Restorationist low fat Natural granola cup 2.8 Mixed Veggies (frozen), cooked cup 4.0 Restorationist Instant oatmeal 1 packet 2.7 Soybeans, cooked cup 3.8 [place] s Frosted Mini wheats cup 2.5 Broccoli, cooked cup 2.5 General [place] Raisin Nut bran cup 2.5 Carrots, cooked cup 2.3 Total Raisin bran cup 2.5 Carrots, raw 1 carrot 2.0 General [place] Cheerios cup 1.8 Green beans, cooked cup 2.0 General [place] Wheaties cup 1.5 Sweet corn (on the cob), cooked 1 ear 1.8 General [place] Aramis Charms cup 0.7 Vegetable soup (Progresso) 1 cup 1.4 [place] s Frosted Flakes cup 0.7 Lettuce (shree), raw 1 cup 1.2 [place] s Apple Jacks cup 0.5 Lettuce, (green leaf), raw 1 cup 0.7 General [place] Piña Grahams cup 0.6 Celery, raw 1 stalk 0.6 General [place] Trix cup 0.4 GRAINS Silv[place] s Fruit Loops, cup 0.4 Barley (pearled), cooked cup 3.0 Silvano s [place] Krispies cup .04 Oat bran, cooked cup 2.8 Restorationist Cap n Crunch cup 0.3 Rice (brown), cooked cup 1.7 General [place] Rice Chex cup 0.1 Rice (white, long-grained), instant cup 0.5 Bagels 4 bagel 2.0 Bread, whole-wheat, rye 1 slice 1.9 Spaghetti, cooked cup 1.7 Bread, raisin 1 slice 1.1 FRUITS OTHER Raspberries (sweetened), frozen cup 5.5 Soup, [place]ris[place] with ham (canned) 1 cup 11.2 Pears, raw 1 pear 5.1 Pasta with meatballs, sauce, canned 1 cup 6.8 Raspberries, raw cup 4.0 Soup, Progresso classic lentil, canned 1 cup 5.6 Blackberries, raw cup 3.8 Baked pork and beans (canned) cup 5.0 Apples,(with skin), raw 1 apple 3.3 Czech Fried potatoes, fast food cup 5.0 Oranges, raw 1 orange 3.1 Mixed nuts, dry roasted w/peanuts 1 oz 2.6 Bananas, raw 1 banana 3.1 Peanuts, dry roasted with salt 1 oz 2.3 Raisins (1 miniature box), seedless 14 g 0.6 Chocolate Milk 1 cup 2.0 Pears, canned in syrup cup 2.2 Tortilla Chip snacks 1 oz 1.8 Grapefruit (pink and red), raw of one 2.0 Cheese Pizza, regular crust, frozen 1 serving 1.4 Grapefruit (white), raw of one 1.3 Potato chip snacks, plan, salted 1 oz 1.3 [place] juice (unsweet.), frozen 6 oz can 1.7 Applesauce (sweetened), canned cup 1.5 CONSTIPATION - Patient Information Handout At times your physician or practitioner may recommend for you to use a bulking agent, stool softener, laxative or a lubricant. Listed below are some types of over the counter medications that may be recommended: Konsyl, Metamucil or Citracil: (Mix 1-2 tablespoons in juice or water and take by mouth 1-2 times a day). These add consistency or bulk to the stool. They must be taken with adequate amounts of fluid by mouth. If taking with a laxative or stool softener, take 8 hours apart. Surfak or Colace: (Take 1 tablet by mouth 1-2 times a day). These are stool softeners. Pericolace: (Take 1 tablet by mouth 1-2 times a day). This is a combination of a stool softener and a laxative. Senokot: (Take to 4 teaspoons of granules in water or juice daily). This is a stool laxative. Glycerin suppositories, Thereva: (Insert 1 rectally every other day and when needed). These are a combination of a stool softener and lubricant. Miralax: Fill to top of white section in cap, which is marked to indicate the correct dose (17 grams). Stir and dissolve in 4 to 8 ounces in any beverage (cold, hot or room temperature). Use once a day for no more than 7 days unless instructed differently by physician. Gas-The following are tips on how to prevent excess gas: Avoid swallowing air - Do not talk while you are eating, CHEW slowly. Avoid carbonated beverages and drinking liquids with ice. Avoid straws, gulping and sipping liquids. Avoid chewing gum, cigarette smoke and lying down after eating. documented in this encounter [facility] 06-05-2023 History of Present illness Narrative Chief Complaint Patient presents with Follow-up SUBJECTIVE: OSMIN Caroline Guillen is a 32 y.o. Here for complaint of interested in cryotherapy for back. Needs clearance from hysterectomy. Surgery was 04/2022. Some constipation uses fiber and miralax. Recent back surgery. Pelvic floor PT in past. Last done 2019. No problems with intercourse. No problems with bladder. No vaginal bleeding. Pt has done well. Never came for postop visit because she was having no problems. No residual pelvic pain. Discussed management of constipation History: Gynecologic History: Social History Substance and Sexual Activity Sexual Activity Yes Partners: Male control/protection: Surgical Comment: S/P LS BS ROS: Constitutional: no fatigue, no fever, no significant weight gain, no significant weight loss Skin: no abnormal moles, no rashes Respiratory: no dyspnea / shortness of breath, no cough, no sputum production, no hemoptysis, no wheezing Cardiovascular: no chest pain, no palpitations, no orthopnea Gastrointestinal: no heartburn, no dysphagia, no nausea, no vomiting, no abdominal pain, no bowel movement changes, no diarrhea, constipation, no rectal bleeding Genitourinary: no hematuria, no abnormal bleeding, no flank pain, no difficulty urinating, no discharge Menstrual: no PMDD symptoms Menopausal: no menopausal symptoms Sexual: no sexual problems Musculoskeletal: no muscle aches, no muscle weakness, no arthralgias/joint pain, no back pain Neurologic: no headaches, no dizziness, no LOC, no weakness, no numbness, no seizures Psych: no depression, no alcoholism, no anxiety, no sleep disturbances OBJECTIVE: Wt Readings from Last 3 Encounters: 04/30/23 78 kg (171 lb 15.3 oz) 05/02/22 79.4 kg (175 lb) 04/16/22 78.3 kg (172 lb 9.9 oz) There is no height or weight on file to calculate BMI. LMP (LMP Unknown) Physical Exam: General Appearance: healthy-appearing, well-nourished, no acute distress Nuero/psych: normal mood, normal affect Mental Status: no focal deficits, oriented Skin:Appearance: no rashes, no lesions Cardiovascular System- no LLE edema, no RLE edema, no varicosities ASSESSMENT/PLAN: Caroline was seen today for follow-up. Diagnoses and all orders for this visit: S/P hysterectomy Endometriosis determined by laparoscopy Constipation, unspecified constipation type Return if symptoms worsen or fail to improve, for Annual physical. documented in this encounter [facility] 05-01-2023 Hospital course Narrative DISCHARGE SUMMARY Patient: Caroline Guillen Date of : 1990 Site: [facility] Family Provider: Elena Cowan DO Admit Date: 04/30/2023 Discharge Date/Time: 05/01/23 12:15 PM Disposition: Home Clinical Summary Hospital Course: Caroline Guillen is a 32 y.o. female patient of Elena Cwoan DO On day of discharge, could eat, ambulate and void. Pain was controlled with oral pain meds, was medically and neurosurgically stable and cleared for DC to home Discharge Diagnoses: Patient presented as ADS patient and underwent the procedure(s) listed below. Postoperatively was admitted to an inpatient surgical unit. Denied leg pain,N/T. Motor 5/5 bilateral LE. Worked to increase activity, advance diet and convert to oral pain control. Remained neurologically stable. Surgeries: 04/30/23 Redo Left Lumbar Five-Six Discectomy/Foraminotomy Allergies: Amlodipine, Dexamethasone (pf), Prozac [fluoxetine], Risperidone, Cymbalta [duloxetine], Gabapentin, [place] carbonate, Penicillin, and Nickel Discharge Medications: Discharge Medications New Medications Details cyclobenzaprine 5 MG tablet Commonly known as: FLEXERIL Take 1 (one) tablet (5 mg total) by mouth 3 (three) times a day as needed for muscle spasms . Quantity: 30 tablet senna-docusate 8.6-50 mg Commonly known as: SENNA-S Take 2 (two) tablets by mouth as needed for constipation . Quantity: 120 tablet traMADol 50 mg tablet Commonly known as: ULTRAM Take 1 (one) tablet (50 mg total) by mouth every 6 (six) hours as needed for pain (Days supply per fill: 7) . Quantity: 28 tablet Medications To Continue Details loratadine 10 mg tablet Commonly known as: CLARITIN Take 1 (one) tablet (10 mg total) by mouth every evening . omeprazole 40 MG capsule Commonly known as: PRILOSEC Take 1 (one) capsule (40 mg total) by mouth every evening . psyllium 3.4 gram packet Commonly known as: METAMUCIL Take 1 (one) packet by mouth every evening . traZODone 50 MG tablet Commonly known as: DESYREL Take 1 (one) tablet (50 mg total) by mouth nightly . TYLENOL ORAL Take 1,000 mg by mouth every 6 (six) hours as needed Reasons: pain. Stopped Medications ascorbic acid (vitamin C) 1000 MG tablet Commonly known as: VITAMIN C Notes to patient: Verify when to re-start vitamins post operative at follow up appointment. b complex vitamins tablet Notes to patient: Verify when to re-start vitamins post operative at follow up appointment. cholecalciferol (vitamin D3) 5,000 unit Tab tablet Notes to patient: Verify when to re-start vitamins post operative at follow up appointment. OMEGA 3,6,9 COMBINATION NO.7 ORAL Notes to patient: Verify when to re-start vitamins post operative at follow up appointment. UNABLE TO FIND Physician(s) Family Provider: Elena Cowan DO, Address: [address] [place] [address] Follow Up: No follow-up provider specified. Completed by: Rosa Bonner CNP on 05/01/23, 1:17 PM documented in this encounter [facility] 05-01-2023 Note Formatting of this n ote might be different from the original. Problem: Actual or potential alteration in health Goal: Absence of healthcare acquired conditions Outcome: Completed Goal: Knowledge of Interdisciplinary Plan of Care Outcome: Completed Goal: Knowledge of Enviroment Outcome: Completed Problem: Pain Goal: Manage acute pain Outcome: Completed Goal: Manage chronic pain Outcome: Completed Goal: Reduced pain sensation Outcome: Completed Goal: Achievement of comfort function goal Outcome: Completed [facility] 05-01-2023 Miscellaneous Notes Problem: Actual or potential alteration in health Goal: Absence of healthcare acquired conditions Outcome: Completed Goal: Knowledge of Interdisciplinary Plan of Care Outcome: Completed Goal: Knowledge of Enviroment Outcome: Completed Problem: Pain Goal: Manage acute pain Outcome: Completed Goal: Manage chronic pain Outcome: Completed Goal: Reduced pain sensation Outcome: Completed Goal: Achievement of comfort function goal Outcome: Completed Discharge AVS reviewed with patient, all questions answered at this time. IV was removed during slot shift supervisor. Problem: Actual or potential alteration in health [...] of comfort function goal Outcome: Partially Met Caroline Delores Guillen DATE OF SURGERY: 04/30/23 SURGEON JESSICA MEYERS DO MOTORCYCLE DESIGNER HARPAL AVALOS DO Due to the complexity of the case and no qualified resident available, assistance was required. PREOPERATIVE DIAGNOSIS Recurrent lumbar HNP POSTOPERATIVE DIAGNOSIS Same. OPERATION Redo Left L5-6 discectomy with foraminotomy. ANESTHESIA General. COMPLICATIONS None. ESTIMATED BLOOD LOSS 25 cc. INDICATIONS: Caroline M Mindy presented with a lumbar disc herniation that has been causing increasing leg pain/ paresthesias . Caroline Guillen tried and failed conservative care and surgery was discussed at that time. Caroline Guillen discussed the goals of surgical treatment for a herniated lumbar disc. I explained the anticipated surgery, hospitalization, and expected return to activity. I discussed the pre, lizeth, and post-operative recovery [...] heart attack, stroke, coma, and even . PROCEDURE: After being seen in the pre op holding area he was brought to the operating room. He was intubated by anesthesia followed by placement of sequential compression devices by nursing. Caroline Guillenwas then placed prone on a Fady frame. All pressure points were checked and padded X2. Next Caroline Guillen was prepped and draped in the normal sterile fashion. Antibiotics were given prior to incision. A time out was completed. A skin incision was made with a 10 blade. A subcuticular and sub periosteal dissection was carried out with Bovie cautery. The correct levels were identified with an Maryse clamp and fluoroscopy. A retractor was placed. A prosper laminotomy was widened using a high speed drill with a coarse priyank bit followed by various sized Kerrison punches. The foraminotomy was also widened in the same manner. The scar tissue was gently removed using curets.The epidural veins were cauterized and the disc space was opened with a 15 blade. A nerve root retractor was used to protect the exiting and traversing nerve roots. The herniated disc was removed with Pituitary rongeurs as well as curets. Next a Chatham was placed and no free fragments were identified. The wound was then irrigated with 2L of saline. Hemostasis was obtained with bi polar cautery. The Deep fascia was closed with O-vicryl followed by the closure of the superficial fascia and subcuticular tissues with 3 and 4-O vicryl. The skin edges were approximated with Exofin. The patient tolerated the procedure well, all sponge and needle counts were correct X2. They will go to the PACU in stable condition. documented in this encounter [facility] 05-01-2023 Note Formatting of this n ote might be different from the original. Discharge AVS reviewed with patient, all questions answered at this time. IV was removed during slot shift supervisor. [facility] 05-01-2023 Hospital Discharge instructions Rosa Bonner CNP - 05/01/2023 9:54 AM EDT BACK SURGERY, HOME CARE INSTRUCTIONS Activity -Rest often -Take short walks. Avoid curbs or uneven terrain -Do not bend at the waist. Do not lift over ten pounds -Avoid sitting for over one hour at a time -No back exercises until cleared by your doctor -No brace needed -No driving until two weeks after surgery and no longer taking narcotic pain medications. -You may ride for short trips. Always wear a seat belt. -You may climb stairs slowly. Special Care -If you use nicotine in any form- patches, smoking, electronic or chewing-It delays healing and increases your risk for infection -If you are a Diabetic- Check blood sugar often and call your family doctor if it s out of range. Surgery can cause high blood sugar -If you use CPAP at home when sleeping, continue do so particularly after taking pain medications. Incision Care -Keep your incision clean and dry -Wash your hands with soap and water after using the bathroom -Change your clothes over the incision daily and more often if the wound is draining -Do not soak (tub bath or swimming) until incision is healed-generally 4 weeks. -Remove your hospital dressing tomorrow morning, and leave your incision uncovered at home under your clothing. -If your incision is closed with glue: May get incision wet starting 3 days after surgery. Use mild soap, rub gently, rinse and pat dry. Do not pick at the glue. It may be removed 12-14 days after surgery -Wash the skin around your incision daily with mild soap and water, rinse and pat dry. -When showering, until allowed to get incision wet, cover incision with plastic wrap, pat dry any moisture after removing wrap Pain Control: Much of the pain after back surgery is from the muscles that were moved during your surgery. -Use the muscle relaxant medication you were prescribed after your surgery -Avoid remaining in the same position for long periods, this causes your muscles to tighten. -While it may be painful to change position, get up and walk short distances multiple times a day to keep your muscles loose. -Constipation contributes to back and abdominal pain. As long as you are taking narcotic pain medication, you should also be taking stool softners. These are available without a prescription. Senna-S is recommended- 1 or 2 tablets twice a day. Additionally a laxative may be needed if you are not having daily BMs- Depending on your preference you can use: Dulcalax pills, or a bulk forming laxative that you drink- such as Miralax, rectal suppositories (Dulcolax) or a Fleets Enema. Use hot or cold packs to improve your pain: Use small bags of ice wrapped in a clean towel or pillowcase or a bag of frozen peas wrapped in a pillowcase on either side of your incision applied for 15-20 minutes followed by at least a 30 minute rest period. Do not put the ice bags directly over your incision. After 48 hours from your surgical time, if you find cold packs don't help, you can use warm packs (see rice sock information below) wrapped in a clean towel or pillowcase on either side of your incision applied for 15-30 minutes. Do not put the warm pack directly over your incision. Rice socks: Place 2 cups of uncooked long grained rice in a tube sock. Tie open end of sock. Place in microwave on medium heat for 60 seconds. Wait 60 minutes to reheat in the microwave. Narcotic Pain Medication Use After Spinal Surgery -You have been given prescriptions for narcotic pain medication to last until your followup appt with your surgeon -You may have received more than one prescription, with different dates that they can be filled. -If you have been given multiple prescriptions we recommend that you give your pharmacy all of the prescriptions as soon as you are discharged. When you take them in, discuss with the staff that you have more than one prescription, with fill dates in the future to treat your post operative pain. If you lose a prescription, we can not give you a new one. -Use the first prescription and then have the later prescriptions filled if needed before your follow up appt with your surgeon. -Be aware that pharmacies in [place] can no longer fill prescriptions more than 14 days after the fill (start) date written on the prescription. Safe use of narcotic pain medication: To avoid becoming dependent on your narcotic pain medication, you must only take it when needed to allow you to get up, move, and to do the activities that are permitted after your surgery. -You will not be pain free immediately after your surgery. -As time goes by after your surgery, reduce the number of pills you take at one time and then work to increase the time between taking pills. -You may find it useful to write down and keep a record of when you take your pain medication, as it can be difficult to remember the time or how many you took while on pain medication. -Continue to use non-narcotic pain control methods as well to reduce your need for narcotic pain medication -It is recommended that you always store narcotic pain medication in a secure location to prevent theft. IF you have narcotic pills left over after your recovery it is recommended that you flush them down a toilet or return them to the pharmacy for disposal (check with pharmacy first, not all can do this) -If you feel that you need a medication refill, you must contact your surgeon's office. The prescriber of your homegoing medications is hospital based and can not provide outpatient refills. Call Your Doctor If You Have -Questions, uncontrolled pain, new weakness or changes in sensation -Signs of infection (redness, swelling, drainage, warmth, increased pain, fever >101,chills) -Nausea, vomiting documented in this encounter [facility] 05-01-2023 History of Present illness Narrative NEUROSURGERY PROGRESS NOTE: Caroline Guillen 1990 [id number] Admitted with these risk variables:None. Please see assessment and plan for further details. Assessment/Plan: POD # 1 s/p Procedure(s): Redo Left Lumbar Five-Six Discectomy/Foraminotomy - Neuro stable, continue to monitor - Pain: well controlled - Advance diet as tolerated - Advance activity as tolerated, PT/OT - No brace needed - Dispo: home this AM Patient discussed with Dr. Meyers Subjective: Patient ambulating in halls this AM. Reports pain has been tolerable, denies issues overnight, no new concerns. Voiding without difficulty, +PO, - flatus. No BM. Physical Exam: Neuro: Awake and alert, oriented to name, place, and time. Gaze conjugate, EOMI. PERRL @ 3mm. Speech clear and appropriate. Face symmetrical. Tongue midline. Motor strength 5/5 to all extremites. No drift noted. Sensation intact. Cervical: Motor strength 5/5 bilateral deltoids, biceps, triceps, compliance nurse, intrinsics. Sensation intact and equal throughout to light touch Lumbar: Motor strength 5/5 bilateral HF, KF, KE, DF, PF, EHL. Sensation intact and equal throughout to light touch Dressing dry and intact, no drainage noted. Incision well approximated. No drainage, erythema, or edema noted. Vital Signs: Current: BP 113/71 Pulse (!) 113 Temp 98.2 F (36.8 C) (Oral) Resp 16 Ht 5' 8 Wt 78 kg (171 lb 15.3 oz) LMP (LMP Unknown) SpO2 100% BMI 26.15 kg/m Last 24 hours: Temp: [97.5 F (36.4 C)-98.2 F (36.8 C)] 98.2 F (36.8 C) Heart Rate: [84-121] 113 Resp: [11-18] 16 BP: (111-148)/(69-107) 113/71 Intake/Output Summary (Last 24 hours) at 05/01/2023 0947 Last data filed at 05/01/2023 0550 Gross per 24 hour Intake 800 ml Output 2400 ml Net -1600 ml Labs: No results found for: NA , K , CL Lab Results Component Value Date WBC 14.75 (H) 11/09/2019 HGB 13.7 11/09/2019 HCT 42.3 11/09/2019 MCV 96.1 11/09/2019 PLT 351 11/09/2019 No results found for: INR , PROTIME Rosa Jones CNP documented in this encounter [facility] 03-21-2024 Note Formatting of this n ote might be different from the original. Problem: Actual or potential alteration in health [...] of comfort function goal Outcome: Partially Met [facility] 04-30-2023 Note Formatting of this n ote might be different from the original. Caroline Estrella Mindy DATE OF SURGERY: 04/30/23 SURGEON JESSICA MEYERS DO MOTORCYCLE DESIGNER HARPAL AVALOS DO Due to the complexity of the case and no qualified resident available, assistance was required. PREOPERATIVE DIAGNOSIS Recurrent lumbar HNP POSTOPERATIVE DIAGNOSIS Same. OPERATION Redo Left L5-6 discectomy with foraminotomy. ANESTHESIA General. COMPLICATIONS None. ESTIMATED BLOOD LOSS 25 cc. INDICATIONS: Caroline Guillen presented with a lumbar disc herniation that has been causing increasing leg pain/ paresthesias . Caroline Delores Mindy tried and failed conservative care and surgery was discussed at that time. Caroline M Mindy discussed the goals of surgical treatment for a herniated lumbar disc. I explained the anticipated surgery, hospitalization, and expected return to activity. I discussed the pre, lizeth, and post-operative recovery [...] heart attack, stroke, coma, and even . PROCEDURE: After being seen in the pre op holding area he was brought to the operating room. He was intubated by anesthesia followed by placement of sequential compression devices by nursing. Caroline Delores Mindywas then placed prone on a Fady frame. All pressure points were checked and padded X2. Next Caroline Guillen was prepped and draped in the normal sterile fashion. Antibiotics were given prior to incision. A time out was completed. A skin incision was made with a 10 blade. A subcuticular and sub periosteal dissection was carried out with Bovie cautery. The correct levels were identified with an Maryse clamp and fluoroscopy. A retractor was placed. A prosper laminotomy was widened using a high speed drill with a coarse priyank bit followed by various sized Kerrison punches. The foraminotomy was also widened in the same manner. The scar tissue was gently removed using curets.The epidural veins were cauterized and the disc space was opened with a 15 blade. A nerve root retractor was used to protect the exiting and traversing nerve roots. The herniated disc was removed with Pituitary rongeurs as well as curets. Next a Chatham was placed and no free fragments were identified. The wound was then irrigated with 2L of saline. Hemostasis was obtained with bi polar cautery. The Deep fascia was closed with O-vicryl followed by the closure of the superficial fascia and subcuticular tissues with 3 and 4-O vicryl. The skin edges were approximated with Exofin. The patient tolerated the procedure well, all sponge and needle counts were correct X2. They will go to the PACU in stable condition. [facility] 04-30-2023 Attending History and physical note INTERVAL HISTORY AND PHYSICAL Patient Name: Caroline Guillen Admit Date: [id number] MR #: [id number] : 1990 The H&P has been reviewed and the patient has been examined. I concur with the findings of the H&P. There are no significant changes. It is appropriate to proceed with the planned procedure. Jessica Meyers Jr., DO 04/30/2023 9:13 AM Source Note - Jessica Meyers Jr., DO - 04/25/2023 9:27 AM EDT [facility] Work Phone: 04-30-2023 History and physical note INTERVAL HISTORY AND PHYSICAL Patient Name: Caroline Guillen Admit Date: [id number] MR #: [id number] : 1990 The H&P has been reviewed and the patient has been examined. I concur with the findings of the H&P. There are no significant changes. It is appropriate to proceed with the planned procedure. Jessica Meyers Jr., 04/30/2023 9:13 AM Source Note - Jessica Meyers Jr., - 04/25/2023 9:27 AM EDT documented in this encounter [facility] 04-25-2023 Nurse Surgical operation note Patient Instructions for [facility] Prior to surgery: Please contact your surgeon's office for the scheduled time of your surgery. Report to the Surgery Family Waiting Area in the [facility] 2 hours prior to your surgery. Your delivery motorcycle driver may park in the [facility] of [facility]. A voucher for parking will be provided to your delivery motorcycle driver. One family member may accompany you back into the Pre-Operative Area. If your surgeon has given you special guidelines for eating and drinking prior to surgery, follow their instructions. If no instructions were provided, follow these instructions. The evening before surgery you may eat a low-fat meal up. You may eat and drink until midnight. Do not eat or drink anything, including gum, cough drops, hard candy, or mints after midnight. Take only the morning pills that you have been instructed to take with sips of water, unless otherwise instructed by your doctor. If you have questions about how to take your medication on the day of surgery, contact your surgeon. If you are a diabetic, do not take your morning dose of insulin or oral hypoglycemic (sugar pill), unless otherwise instructed by your physician. We will check your blood glucose level prior to surgery and again after surgery. Shower using dial soap or as advised by your surgeon's office. You may brush your teeth on the morning of surgery but avoid swallowing any excess water. Do not apply any makeup, lotions, powders, or deodorants. Wear loose-fitting, washable clothing that will not interfere with your incision or dressing. Wear comfortable shoes that are easy to get on and off (tennis shoes, non-skid shoes, slippers, etc.). Please remove all jewelry and piercings, including wedding rings. If you cannot remove your rings, we may be required to cut them off if necessary. All nail tanzanian must be removed from your fingernails and toenails. Remove artificial nails from your fingernails. Please leave all valuable items at home. Do not smoke, vape, or chew tobacco or marijuana for 24 hours before surgery. Do not drink alcoholic beverages for 24 hours before surgery. Please be sure to wear comfortable, appropriate clothing. Please remember to bring both your insurance card and a photo ID with you on the day of your surgery. After your surgery: Arrange for a responsible adult (18 years or older) to drive you to and from the hospital if you are having an outpatient procedure. You are not permitted to drive until instructed by your surgeon. The expectation is that this delivery motorcycle driver will remain at the hospital for the duration of your procedure. You are advised to have someone stay with you for at least 24 hours after being under anesthesia. [facility] 04-25-2023 Nurse Note Patient Instructions for [facility] Prior to surgery: Please contact your surgeon's office for the scheduled time of your surgery. Report to the Surgery Family Waiting Area in the [facility] 2 hours prior to your surgery. Your delivery motorcycle driver may park in the [facility] of [facility]. A voucher for parking will be provided to your delivery motorcycle driver. One family member may accompany you back into the Pre-Operative Area. If your surgeon has given you special guidelines for eating and drinking prior to surgery, follow their instructions. If no instructions were provided, follow these instructions. The evening before surgery you may eat a low-fat meal up. You may eat and drink until midnight. Do not eat or drink anything, including gum, cough drops, hard candy, or mints after midnight. Take only the morning pills that you have been instructed to take with sips of water, unless otherwise instructed by your doctor. If you have questions about how to take your medication on the day of surgery, contact your surgeon. If you are a diabetic, do not take your morning dose of insulin or oral hypoglycemic (sugar pill), unless otherwise instructed by your physician. We will check your blood glucose level prior to surgery and again after surgery. Shower using dial soap or as advised by your surgeon's office. You may brush your teeth on the morning of surgery but avoid swallowing any excess water. Do not apply any makeup, lotions, powders, or deodorants. Wear loose-fitting, washable clothing that will not interfere with your incision or dressing. Wear comfortable shoes that are easy to get on and off (tennis shoes, non-skid shoes, slippers, etc.). Please remove all jewelry and piercings, including wedding rings. If you cannot remove your rings, we may be required to cut them off if necessary. All nail tanzanian must be removed from your fingernails and toenails. Remove artificial nails from your fingernails. Please leave all valuable items at home. Do not smoke, vape, or chew tobacco or marijuana for 24 hours before surgery. Do not drink alcoholic beverages for 24 hours before surgery. Please be sure to wear comfortable, appropriate clothing. Please remember to bring both your insurance card and a photo ID with you on the day of your surgery. After your surgery: Arrange for a responsible adult (18 years or older) to drive you to and from the hospital if you are having an outpatient procedure. You are not permitted to drive until instructed by your surgeon. The expectation is that this delivery motorcycle driver will remain at the hospital for the duration of your procedure. You are advised to have someone stay with you for at least 24 hours after being under anesthesia. documented in this encounter [facility] 04-08-2023 History of Present illness Narrative Patient here with partner for [...] in the past 6mo. MRI spine in [facility] from 02/17/23 Images from the original note were not included. Neurosurgical New Consult LIVE Visit [facility] 04/08/23 Dr. Jessica Meyers DO [place] [id number] [facility], [address] [place] [id number] [phone] Patient: Caroline Guillen, : 1990, Physicians: Elena [...] includes Laminectomy (05/05/2018); PELVISCOPY ROBOTIC (N/A, 11/09/2019); [place] tooth extraction (Bilateral, Age 23); Appendectomy (10/2019); [...] [fluoxetine], Risperidone, Dexamethasone (pf), Cymbalta [duloxetine], Gabapentin, [place] carbonate, Penicillin, and Nickel Review of Systems: [...] Intraop imaging: Fluroscopy Patient positioning: Prone on skinner frame and Fidencio table Positioning accessories: None Instrumentation: None Spacers/Cages: None Fusion products: None Monitoring: None My nurse spoke with patient and her spouse regarding surgery scheduling. The [facility] surgery packet was given; my nurse reviewed pre-op usage of antimicrobial soap and nasal prep, brace and bone stimulator protocol, reviewed medication use, and the [facility] pain policy regarding post-operative care. All questions were answered and office contact information was provided. Consult pain team in the hospital As always, I greatly appreciate the opportunity to take part in Caroline Guillen's care. Please don't hesitate to call with any questions or concerns. If I or anyone else at [facility] can be of further service to you or your staff, please call on us. Cordially, Jessica Meyers DO, FACOS documented in this encounter [facility] 05-02-2022 History of Present illness Narrative POST-OPERATIVE VISIT Surgery: Robotic Assisted Laparoscopic Hysterectomy, Excision Of Endometriosis, Lysis Of Adhesions Surgery Date: 04/16/2022 Surgeon: Bernabe Rouse MD HPI: Caroline Guillen is a 31 [...] histories have been reviewed and updated in [facility] charting. Physical Exam: Physical Exam Constitutional: [...] (around 08/02/2022) for with an JUNO. Bernabe Rouse MD documented in this encounter [facility] 05-02-2022 Evaluation + Plan note Associated [...] concerns arise. All questions answered to satisfaction. [facility] 05-02-2022 Miscellaneous Notes Associated Problem(s): Endometriosis [...] answered to satisfaction. documented in this encounter [facility] 04-09-2022 Note Formatting of this n ote might be different from the original. Faxed request for surgical consent. [facility] 04-09-2022 Note Formatting of this n ote might be different from the original. Faxed request for surgical consent. [facility] 04-09-2022 Miscellaneous Notes Faxed request for surgical consent. Patient Instructions for [facility]: MAIN OR Prior to surgery: Please contact your Surgeon's office for the scheduled time of your surgery. Report to the Surgery Family Waiting Area in the [place] [facility] of [facility] 2 hours prior to your surgery. You may use the [employer] parking available at the Blue Entrance /or [...] from both ring fingers. Remove all nail tanzanian/product for surgeries involving extremities. Please remember to bring both your insurance card and a photo ID with you on the day of surgery. After your surgery: If you are having outpatient surgery - you must have a licensed delivery motorcycle driver to take you home. The expectation is that this delivery motorcycle driver will remain at the hospital for the duration of your procedure. You are advised to have a family member with you for at least 24 hours after being under Anesthesia. documented in this encounter [facility] 04-09-2022 History and physical note Assessment [...] reflux disease without esophagitis Well controlled with PPI/[id number] which should be dosed perioperatively on usual home schedule. 6. Interstitial cystitis 7. History of lumbar laminectomy this occurred in 2019 Chief Complaint Patient presents with Pre-operative Medical Risk Stratification History of Present Illness Caroline Guillen is a 31 y.o. 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 This patient has been diagnosed with Pre-Op Dx: Endometriosis (N80.9) and the above procedure has been recommended and scheduled for 04/16/2022. This patient is not known to have any heart problems and does not follow with a casting room helper. She is never had a stroke or [...] CYSTOSCOPY WITH HYDRODISTENTION, ERAS PROTOCOL; Surgeon: Bernabe Rouse MD; Location: [facility] Main OR; Service: OBGYN TONSILLECTOMY 04/17/2021 WISDOM [...] Shortness Of Breath Itching from Chest to [place] Prozac [Fluoxetine] Shortness Of Breath Panicky, Shaky, Chest Tightening Risperidone Shortness Of Breath Itching from Chest to [place] Dexamethasone (Pf) Other (See Comments) Psychosis Cymbalta [Duloxetine] Other (See Comments) Migraines, severe disorientation and dizziness Gabapentin Other (See Comments) Suicidal Thoughts [place] Carbonate Other (See Comments) Blood Sugar increase [...] (Calculated): 26.8 Neck Circumference (inches): 14 inches [facility] Work Phone: 04-09-2022 History and physical note [...] reflux disease without esophagitis Well controlled with PPI/[id number] which should be dosed perioperatively on usual home schedule. 6. Interstitial cystitis 7. History of lumbar laminectomy this occurred in 2018 Chief Complaint Patient presents with Pre-operative Medical Risk Stratification History of Present Illness Caroline Guillen is a 31 y.o. 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 This patient has been diagnosed with Pre-Op Dx: Endometriosis (N80.9) and the above procedure has been recommended and scheduled for 04/16/2022. This patient is not known to have any heart problems and does not follow with a casting room helper. She is never had a stroke or [...] CYSTOSCOPY WITH HYDRODISTENTION, ERAS PROTOCOL; Surgeon: Bernabe Rouse MD; Location: [facility] Main OR; Service: OBGYN TONSILLECTOMY 04/17/2021 WISDOM [...] to Admission medications taking for visit date 2/28/23 Medication Sig Taking? Discontinued? acetaminophen (TYLENOL ORAL) [...] Shortness Of Breath Itching from Chest to [place] Prozac [Fluoxetine] Shortness Of Breath Panicky, Shaky, Chest Tightening Risperidone Shortness Of Breath Itching from Chest to [place] Dexamethasone (Pf) Other (See Comments) Psychosis Cymbalta [Duloxetine] Other (See Comments) Migraines, severe disorientation and dizziness Gabapentin Other (See Comments) Suicidal Thoughts [place] Carbonate Other (See Comments) Blood Sugar increase [...] (inches): 14 inches documented in this encounter [facility] 04-09-2022 History and physical note Assessment [...] reflux disease without esophagitis Well controlled with PPI/[id number] which should be dosed perioperatively on usual home schedule. 6. Interstitial cystitis 7. History of lumbar laminectomy this occurred in 2019 Chief Complaint Patient presents with Pre-operative Medical Risk Stratification History of Present Illness Caroline Guillen is a 31 y.o. 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 This patient has been diagnosed with Pre-Op Dx: Endometriosis (N80.9) and the above procedure has been recommended and scheduled for 04/16/2022. This patient is not known to have any heart problems and does not follow with a casting room helper. She is never had a stroke or [...] CYSTOSCOPY WITH HYDRODISTENTION, ERAS PROTOCOL; Surgeon: Bernabe Rouse MD; Location: [facility] Main OR; Service: OBGYN TONSILLECTOMY 04/17/2021 WISDOM [...] Shortness Of Breath Itching from Chest to [place] Prozac [Fluoxetine] Shortness Of Breath Panicky, Shaky, Chest Tightening Risperidone Shortness Of Breath Itching from Chest to [place] Dexamethasone (Pf) Other (See Comments) Psychosis Cymbalta [Duloxetine] Other (See Comments) Migraines, severe disorientation and dizziness Gabapentin Other (See Comments) Suicidal Thoughts [place] Carbonate Other (See Comments) Blood Sugar increase [...] (inches): 14 inches documented in this encounter [facility] 04-09-2022 Instructions Aaliyah Perez MD - [...] medications that contain aspirin, such as Naomi Want[place], Pepto-Bismol, Anacin), antiinflammatory medications such as Advil, Motrin, Ibuprofen, Naproxen, Aleve, Naomi [place], Pepto-Bismol, Anacin, Diclofenac, Voltaren, Daypro, Etodolac, Ketoprofen, Meloxicam, Piroxicam, Relafen, Nabumetone, etc. Also discontinue Vitamin C, Vitamin E, [place]-3 Fatty Acid, Fish Oil or Lovaza, as [...] day of surgery. documented in this encounter [facility] 04-09-2022 Instructions Aaliyah Perez MD - [...] medications that contain aspirin, such as Naomi [place], Pepto-Bismol, Anacin), antiinflammatory medications such as Advil, Motrin, Ibuprofen, Naproxen, Aleve, Naomi [place], Pepto-Bismol, Anacin, Diclofenac, Voltaren, Daypro, Etodolac, Ketoprofen, Meloxicam, Piroxicam, Relafen, Nabumetone, etc. Also discontinue Vitamin C, Vitamin E, [place]-3 Fatty Acid, Fish Oil or Lovaza, as [...] day of surgery. documented in this encounter [facility] 04-09-2022 Note Formatting of this n ote might be different from the original. Patient Instructions for [facility]: MAIN OR Prior to surgery: Please contact your Surgeon's office for the scheduled time of your surgery. Report to the Surgery Family Waiting Area in the [place] [facility] of [facility] 2 hours prior to your surgery. You may use the [employer] parking available at the Blue Entrance /or [...] from both ring fingers. Remove all nail tanzanian/product for surgeries involving extremities. Please remember to bring both your insurance card and a photo ID with you on the day of surgery. After your surgery: If you are having outpatient surgery - you must have a licensed delivery motorcycle driver to take you home. The expectation is that this delivery motorcycle driver will remain at the hospital for the duration of your procedure. You are advised to have a family member with you for at least 24 hours after being under Anesthesia. [facility] 04-09-2022 Note Formatting of this n ote might be different from the original. Patient Instructions for [facility]: MAIN OR Prior to surgery: Please contact your Surgeon's office for the scheduled time of your surgery. Report to the Surgery Family Waiting Area in the [facility] 2 hours prior to your surgery. You may use the [employer] parking available at the Blue Entrance /or [...] from both ring fingers. Remove all nail tanzanian/product for surgeries involving extremities. Please remember to bring both your insurance card and a photo ID with you on the day of surgery. After your surgery: If you are having outpatient surgery - you must have a licensed delivery motorcycle driver to take you home. The expectation is that this delivery motorcycle driver will remain at the hospital for the duration of your procedure. You are advised to have a family member with you for at least 24 hours after being under Anesthesia. [facility] 04-09-2022 Note Formatting of this n ote might be different from the original. Patient Instructions for [facility]: MAIN OR Prior to surgery: Please contact your Surgeon's office for the scheduled time of your surgery. Report to the Surgery Family Waiting Area in the [facility] 2 hours prior to your surgery. You may use the [employer] parking available at the Blue Entrance /or [...] from both ring fingers. Remove all nail tanzanian/product for surgeries involving extremities. Please remember to bring both your insurance card and a photo ID with you on the day of surgery. After your surgery: If you are having outpatient surgery - you must have a licensed delivery motorcycle driver to take you home. The expectation is that this delivery motorcycle driver will remain at the hospital for the duration of your procedure. You are advised to have a family member with you for at least 24 hours after being under Anesthesia. [facility] 04-09-2022 Note Formatting of this n ote might be different from the original. Patient Instructions for [facility]: MAIN OR Prior to surgery: Please contact your Surgeon's office for the scheduled time of your surgery. Report to the Surgery Family Waiting Area in the [facility] 2 hours prior to your surgery. You may use the [employer] parking available at the Blue Entrance /or [...] from both ring fingers. Remove all nail tanzanian/product for surgeries involving extremities. Please remember to bring both your insurance card and a photo ID with you on the day of surgery. After your surgery: If you are having outpatient surgery - you must have a licensed delivery motorcycle driver to take you home. The expectation is that this delivery motorcycle driver will remain at the hospital for the duration of your procedure. You are advised to have a family member with you for at least 24 hours after being under Anesthesia. [facility] 04-09-2022 Note Formatting of this n ote might be different from the original. Patient Instructions for [facility]: MAIN OR Prior to surgery: Please contact your Surgeon's office for the scheduled time of your surgery. Report to the Surgery Family Waiting Area in the [facility] 2 hours prior to your surgery. You may use the [employer] parking available at the Blue Entrance /or [...] from both ring fingers. Remove all nail tanzanian/product for surgeries involving extremities. Please remember to bring both your insurance card and a photo ID with you on the day of surgery. After your surgery: If you are having outpatient surgery - you must have a licensed delivery motorcycle driver to take you home. The expectation is that this delivery motorcycle driver will remain at the hospital for the duration of your procedure. You are advised to have a family member with you for at least 24 hours after being under Anesthesia. [facility] 04-09-2022 Miscellaneous Notes Patient Instructions for [facility]: MAIN OR Prior to surgery: Please contact your Surgeon's office for the scheduled time of your surgery. Report to the Surgery Family Waiting Area in the [facility] 2 hours prior to your surgery. You may use the [employer] parking available at the Blue Entrance /or [...] from both ring fingers. Remove all nail tanzanian/product for surgeries involving extremities. Please remember to bring both your insurance card and a photo ID with you on the day of surgery. After your surgery: If you are having outpatient surgery - you must have a licensed delivery motorcycle driver to take you home. The expectation is that this delivery motorcycle driver will remain at the hospital for the duration of your procedure. You are advised to have a family member with you for at least 24 hours after being under Anesthesia. documented in this encounter [facility] 04-09-2022 Telephone encounter Note Patient was seen in the office today for pre-op RN only visit. Post-op prescriptions entered after visit and routed to provider to sign. Patient is aware prescriptions will be available to mixing picker tender at pharmacy prior to upcoming surgery. [facility] 04-09-2022 Miscellaneous Notes Patient was seen in the office today for pre-op RN only visit. Post-op prescriptions entered after visit and routed to provider to sign. Patient is aware prescriptions will be available to mixing picker tender at pharmacy prior to upcoming surgery. documented in this encounter [facility] 04-09-2022 History of Present illness Narrative [facility] [address] [facility] [id number] PRE-OPERATIVE CONSULT Pre-Operative Visit: 04/09/22 Date Of Surgery: 04/16/22 Location Of Surgery: [facility] Pre-Op Dx: Endometriosis Type Of Surgery: ROBOTIC [...] surgery consent form reviewed. PAT today at [facility]. Last appt with Dr. Banda was 10/08/21. Pt allergic to Gabapentin, Rxs for Percocet and Ibuprofen sent to provider to sign. Selin Jang RN 04/09/22 8:46 AM documented in this encounter [facility] 10-12-2021 Telephone encounter Note Rx for Micronor added to chart and routed to Dr. Banda to sign. [facility] 10-12-2021 Miscellaneous Notes Rx for Micronor added to chart and routed to Dr. Banda to sign. Patient LVM on RN line. States that she saw Dr. Banda on Friday and Dr. Banda said she would be sending in a prescription for a low dose POP. Patient has checked with her pharmacy ([facility]) and they have not received any prescriptions. [...] at that time. documented in this encounter [facility] 10-10-2021 Telephone encounter Note Patient LVM on RN line. States that she saw Dr. Banda on Friday and Dr. Banda said she would be sending in a prescription for a low dose POP. Patient has checked with her pharmacy ([facility]) and they have not received any prescriptions. [...] be updated and discussed at that time. [facility] 10-08-2021 History of Present illness Narrative [facility] [address] [place] [id number] OFFICE VISIT Patient Name: Caroline Guillen : 1990 MR #: [id number] SUBJECTIVE: Caroline Guillen is a 30 y.o. [...] nursing note reviewed. Exam conducted with a retail and restaurant present. ASSESSMENT/PLAN: Caroline Guillen 30 y.o. 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 Carolyn Robbins MA, acted as scribe on behalf of Dr. Bernabe Rouse and accurately documented clinical information at the direction of the physician contemporaneously, while she performed the patient's clinical service. 10/08/21 3:02 PM documented in this encounter [facility] 10-08-2021 Evaluation + Plan note Associated [...] Rx written for progestin-only (Micronor) control pill. [facility] 10-08-2021 Miscellaneous Notes Associated Problem(s): Endometriosis [...] (Micronor) control pill. documented in this encounter [facility] 07-08-2021 History of Present illness Narrative Ultrasound images reviewed and evaluated. Documentation within US report. Bernabe Rouse MD 07/08/21 10:49 AM documented in this encounter [facility] 05-01-2021 Telephone encounter Note Returned call [...] follow up with Dr. Banda in June. [facility] 05-01-2021 Miscellaneous Notes Returned call to [...] sensitive to medications. documented in this encounter [facility] 04-27-2021 Telephone encounter Note Pt called and stated that she discussed with Dr Banda about switching from Anavera to the Nuva ring and wants to know if this is a better option than Orlissa. Every since the pt has had Covid she is very sensitive to medications. [facility] 04-17-2021 History of Present illness Narrative Discharge Criteria Outpatients must meet [...] pain 5/10 like a sore throat'. VSS [facility] Preadmission Testing Name: Caroline Guillen : 1990 [...] Take [x] Ride Home [x]No Jewelry/Contact Lenses/Nail Armenian [] Prep/Lax/Clear Liquids [] Chlorhexidene DOS Patient Needs [x] HCG [] Blood Sugar [] PT/INR [] T&S COVID Vaccinated? [] Yes [x] No Patient instructed on the pre-operative, intra-operative, and post-operative process? Yes Medication instructions reviewed with patient? Yes documented in this encounter [employer] Phone: 04-07-2021 History of Present illness Narrative Ultrasound images reviewed and evaluated. Documentation within US report. Bernabe Rouse MD 04/07/21 10:46 PM documented in this encounter [facility] 03-28-2021 History of Present illness Narrative [facility] [address] [place] [phone] OFFICE VISIT Patient Name: Caroline Guillen : 1990 MR #: [id number] SUBJECTIVE: Caroline Guillen is a 30 y.o. [...] nursing note reviewed. Exam conducted with a retail and restaurant present. ASSESSMENT/PLAN: Caroline Guillen 30 y.o. presents [...] as scribe on behalf of Dr. Bernabe Rouse and accurately documented clinical information at the direction of the physician contemporaneously, while she performed the patient's clinical service. 03/28/21 8:47 AM documented in this encounter [facility] 03-28-2021 Evaluation + Plan note Associated [...] depression and anxiety. Orlissa samples given today. [facility] 03-28-2021 Miscellaneous Notes Associated Problem(s): Endometriosis [...] samples given today. documented in this encounter [facility] 02-21-2021 Note HNO ID: [id number] Author: RT Sylvester(R) Service: Radiology Author Type: [...] RT Sylvester(R) February 21, 2021 2:02 PM [facility] 02-21-2021 Note HNO ID: [id number] Author: Leonidas Chatterjee APRN.TECHNICIAN [employer] SYSTEMS Service: ? Author Type: Nurse Practitioner Type: [...] of care. This note was generated using [employer] software. It may contain errors in wording, punctuation, or spelling. Leonidas Chatterjee APRN.TECHNICIAN TEST SYSTEMS [facility] 02-21-2021 History of Present illness Narrative Radiology Service Progress Note PATIENT NAME: Caroline [...] RT Sylvester(R) February 21, 2021 2:02 PM documented in this encounter [facility] 10-23-2020 History of Present illness Narrative Ultrasound images reviewed and evaluated. Documentation within US report. Bernabe Rouse MD 10/23/20 1:52 AM documented in this encounter [facility] 07-11-2020 History of Present illness Narrative Subjective Patient ID: Caroline Guillen [...] her PAP is current at her home [employer]. Contraception options reviewed and patient elects tubal [...] Crockett CNP 10/18/20 documented in this encounter [facility] Evaluation note Diagnosis Endometriosis- Primary Endometriosis, site unspecified [facility] Diagnosis Endometriosis- Primary Endometriosis, site unspecified Pelvic pain in female Unspecified symptom associated with female genital organs [facility] Diagnosis Endometriosis Endometriosis, site unspecified [facility]* Diagnosis Pelvic pain in female- Primary Unspecified symptom associated with female genital organs [facility] Diagnosis Chronic tonsillitis documented in this encounter [employer] Phone: evaluation note* Diagnosis Pelvic pain in [...] [facility]* Diagnosis Postop check- Primary Follow-up examination, following unspecified surgery Endometriosis determined by laparoscopy Interstitial cystitis Chronic interstitial cystitis [facility]* Diagnosis Lumbar radiculopathy- Primary Thoracic or lumbosacral neuritis or radiculitis, unspecified Herniated lumbar intervertebral disc Displacement of lumbar intervertebral disc without myelopathy [facility]* Diagnosis Degenerative disc disease, lumbar- Primary [facility]* Diagnosis Degeneration of lumbar or lumbosacral intervertebral disc- Primary [facility]* Diagnosis Lumbar radiculopathy- Primary Thoracic or lumbosacral neuritis or radiculitis, unspecified [facility]* Diagnosis Lumbar radiculopathy- Primary Thoracic or lumbosacral neuritis or radiculitis, unspecified [facility]* Diagnosis Lumbar radiculopathy- Primary Thoracic or lumbosacral neuritis or radiculitis, unspecified Lumbar radiculopathy Thoracic or lumbosacral neuritis or radiculitis, unspecified Post-op pain Other acute postoperative pain [facility]* Diagnosis Lumbar radiculopathy- Primary Thoracic or lumbosacral neuritis or radiculitis, unspecified [facility]* Diagnosis S/P hysterectomy- Primary Acquired absence of both cervix and uterus Endometriosis determined by laparoscopy Constipation, unspecified constipation type [facility]* Diagnosis Lumbar radiculopathy- Primary Thoracic or lumbosacral neuritis or radiculitis, unspecified [facility]* Diagnosis Lumbar radiculopathy- Primary Thoracic or lumbosacral neuritis or radiculitis, unspecified Left hip pain Pain in joint, pelvic region and thigh documented in this encounter [facility] note* Diagnosis Left hip pain- Primary Pain in joint, pelvic region and thigh documented in this encounter [facility] note* Diagnosis Lumbar radiculopathy- Primary Thoracic or lumbosacral neuritis or radiculitis, unspecified documented in this encounter [facility] note* Diagnosis Lumbar radiculopathy- Primary Thoracic or lumbosacral neuritis or radiculitis, unspecified documented in this encounter [facility] note* Diagnosis Lumbar radiculopathy, acute- Primary documented in this encounter [facility] note* Diagnosis Left ovarian cyst- Primary Other and unspecified ovarian cyst documented in this encounter [facility] note* Diagnosis Left ovarian cyst- Primary Other and unspecified ovarian cyst documented in this encounter [facility] note* Diagnosis Endometriosis determined by laparoscopy Endometrioma of ovary Interstitial cystitis Chronic interstitial cystitis Endometriosis determined by laparoscopy Interstitial cystitis Chronic interstitial cystitis Endometrioma of ovary Endometriosis determined by laparoscopy Interstitial cystitis Chronic interstitial cystitis Endometrioma of ovary documented in this encounter [facility] note* Diagnosis Endometriosis determined by laparoscopy Interstitial cystitis Chronic interstitial cystitis Endometrioma of ovary Endometriosis determined by laparoscopy- Primary Pre-op examination Anxiety and depression Bipolar affective disorder, remission status unspecified (HCC) Complication of anesthesia, initial encounter Endometriosis determined by laparoscopy Interstitial cystitis Chronic interstitial cystitis Endometrioma of ovary documented in this encounter [facility] note* Diagnosis Endometriosis determined by laparoscopy Interstitial cystitis Chronic interstitial cystitis Endometrioma of ovary Endometriosis determined by laparoscopy- Primary Pre-op examination Anxiety and depression Bipolar affective disorder, remission status unspecified (HCC) Complication of anesthesia, initial encounter Endometriosis determined by laparoscopy Interstitial cystitis Chronic interstitial cystitis Endometrioma of ovary documented in this encounter [facility] note* Diagnosis Endometriosis determined by laparoscopy Interstitial cystitis Chronic interstitial cystitis Endometrioma of ovary Pelvic pain in female- Primary Unspecified symptom associated with female genital organs Endometriosis determined by laparoscopy Interstitial cystitis Chronic interstitial cystitis Endometrioma of ovary documented in this encounter [facility] note* Diagnosis Pain of right hand Pain in limb documented in this encounter [facility] note* Diagnosis Post-operative state- Primary Other postprocedural status Endometriosis determined by laparoscopy Interstitial cystitis Chronic interstitial cystitis [facility]* Instructions* Jose Roberto Dunaway MD [...] PROVIDED IN THIS DOCUMENT. [facility] this [facility]: reason for referral (narrative)* Diagnostic Procedure Only (Urgent) - Closed Specialty Diagnoses / Procedures Referred By Contac t Referred To Contact XR IMAGING Diagnoses Pain of right hand Procedures XR HAND GENERAL 3V PA/LAT/OBL RIGHT X-RAY HAND MINIMUM 3 VIEWS Leonidas Chatterjee APRN.TECHNICIAN TEST SYSTEMS [address] [place] [address] [place] [address] Referral ID Status Reason Start Date Expiration Date V isits Requested Visits Authorized Closed Auto-Generate d Referral 02/21/2021 03/23/2022 1 1 [facility] for visit Narrative* Auth/Cert Specialty Diagnoses / Procedures Referred By Contac t Referred To Contact Diagnoses Chronic tonsillitis Dysphagia, unspecified chronic tonsilitis, dysphagia Procedures IN REMOVAL OF TONSILS,12+ Y/O TONSILLECTOMY Jose Roberto Dunaway MD [address] [place] [address] [employer] [address] [place] [address] Referral ID Status Reason Start Date Expiration Date Visits Re quested Visits Authorized [id number] 1 1 [employer] Phone: reason for visit Narrative* Diagnostic Procedure Only (Urgent) - Closed Specialty Diagnoses / Procedures Referred By Contdeena t Referred To Contact XR IMAGING Diagnoses Pain of right hand Procedures XR HAND GENERAL 3V PA/LAT/OBL RIGHT X-RAY HAND MINIMUM 3 VIEWS Leonidas Chatterjee APRN.TECHNICIAN [employer] [address] [place] [address] [place] [address] Referral ID Status Reason Start Date Expiration Date V isits Requested Visits Authorized [id number] Closed Auto-Generate d Referral 02/21/2021 03/23/2022 1 1 [facility] Summary Purpose Family History No Family History Records FoundNo Family History Records FoundNo Family History Records FoundNo Family History Records FoundNo Family History Records FoundNo Family History Records FoundNo Family History Records FoundNo Family History Records Found Advance Directives No Advanced Directives Records FoundDocuments on File Type Date Recorded 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 anation Advance Directives and Livin g Will 11/09/2019 5:06 AM Latest Code Status on File Code Status Date Activated Date Inactivated Comments Full Code 11/09/2019 5:41 AM 11/09/2019 12:57 PM Documents on File Type Date Recorded 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 anation Advance Directives and Livin g [...] Code 11/09/2019 5:41 AM 11/09/2019 12:57 PM Date Activated Date Inactivated Comments 04/30/2023 12:02 PM 05/01/2023 2:22 PM Date Activated Date Inactivated Comments 04/16/2022 2:28 PM 04/16/2022 10:38 PM Date Activated Date Inactivated Comments 04/16/2022 9:42 AM 04/16/2022 2:28 PM Date Activated Date Inactivated Comments 11/09/2019 5:41 AM 11/09/2019 12:57 PM Date Activated Date Inactivated Comments 04/30/2023 12:02 PM 05/01/2023 2:22 PM Date Activated Date Inactivated Comments 04/16/2022 2:28 PM 04/16/2022 10:38 PM Date Activated Date Inactivated Comments 04/16/2022 9:42 AM 04/16/2022 2:28 PM Date Activated Date Inactivated Comments 11/09/2019 5:41 AM 11/09/2019 12:57 PM Date Activated Date Inactivated Comments 10/29/2023 9:58 AM 10/29/2023 5:36 PM Date Activated Date Inactivated Comments 10/29/2023 5:47 AM 10/29/2023 9:58 AM Date Activated Date Inactivated Comments 04/30/2023 12:02 PM 05/01/2023 2:22 PM Date Activated Date Inactivated Comments 04/16/2022 2:28 PM 04/16/2022 10:38 PM Date Activated Date Inactivated Comments 04/16/2022 9:42 AM 04/16/2022 2:28 PM History of Present Illness * Vandana Salazar RN - 11/09/2019 5:19 PM EDT AVS reviewed with patient and given to her. All questions answered by this RN. IV removed with catheter tip intact. Vandana Salazar * Any Rabago DO - 11/09/2019 4:18 PM EDT GYNECOLOGY BRIEF POST-OP NOTE Patient Name: Caroline Guillen MR #: [id number] ASSESSMENT AND PLAN: Endometriosis Assessment & Plan [...] 5:00 PM documented in this encounter* Bernabe Rouse MD - 02/23/2020 10:35 AM EST [facility] [address] [facility] [phone] OFFICE VISIT TELEHEALTH VISIT Patient Name: Caroline Guillen : 1990 MR #: [id number] Patient Location: Verified Patient is located in the [facility]. Patient Identification: Verified patient identity by Name [...] as scribe on behalf of Dr. Bernabe Rouse and accurately documented clinical information at the direction of the physician contemporaneously, while she performed the patient's clinical service. 02/23/20 10:35 AM documented in this encounter Assessments Diagnosis Interstitial cystitis Chronic interstitial cystitis Endometriosis Endometriosis, site unspecified Diagnosis Endometriosis Endometriosis, site unspecified Reason for Referral Specialty Diagnoses / Procedures Referred By Contac t Referred To Contact Neurosurgery Diagnoses Lumbar radiculopathy Herniated lumbar intervertebral disc Elena Cowan, DO [address] [place] [address] Jessica Meyers Jr., DO [address] [facility] [address] [place] [address] Referral ID Status Reason Start Date Expiration Date V isits Requested Visits Authorized [id number] Authorized 02/25/2023 02/25/2024 1 1 Specialty Diagnoses / Procedures Referred By Contac t Referred To Contact Physical Therapy Diagnoses Lumbar radiculopathy Jennifer Russ PA-C [address] [facility] [address] [place] [address] Referral ID Status Reason Start Date Expiration Date Visits Requested Visits Authorized [id number] Authorized Specialty Services Required/Pat ient's Best Interest 06/05/2023 06/04/2024 1 1 Specialty Diagnoses / Procedures Referred By Contac t Referred To Contact Diagnoses Lumbar radiculopathy Len Cortésagustina Sams, TECHNICIAN TEST SYSTEMS [address] [facility] [address] [place] [address] OF SERVICE NOT IN SYSTEM Referral ID Status Reason Start Date Expiration Date Visits Requested Visits Authorized [id number] Authorized Patient Preference 07/09/2023 07/08/2024 1 1 Specialty Diagnoses / Procedures Referred By Contac t Referred To Contact Radiology Diagnoses Lumbar radiculopathy Procedures MR Lumbar Spine Without Contrast Len Cortésagustina Sams, TECHNICIAN TEST SYSTEMS [address] [place] [address] Referral ID Status Reason Start Date Expiration Date V isits Requested Visits Authorized [id number] New Request 07/09/2023 07/08/2024 1 1 Specialty Diagnoses / Procedures Referred By Contac t Referred To Contact Physical Medicine and Rehabilitation Diagnoses Lumbar radiculopathy Len Cortésagustina Sams, TECHNICIAN TEST SYSTEMS [address] [place] [address] Referral ID Status Reason Start Date Expiration Date V isits Requested Visits Authorized [id number] Authorized 07/09/2023 07/08/2024 1 1 Referral ID Status Reason Start Date Expiration Date Visits Requested Visits Authorized [id number] Pending Review Specialty Services Required/Pat ient's Best Interest 07/16/2023 07/15/2024 1 1 Specialty Diagnoses / Procedures Referred By Contac t Referred To Contact Neurology Diagnoses Lumbar radiculopathy Jennifer Russ PA-C [address] [place] [address] Delvin Nguyen MD [facility] Rik Quijano [address] [address] Referral ID Status Reason Start Date Expiration Date Visits Requested Visits Authorized [id number] Authorized Specialty Services Required/Pat ient's Best Interest 08/01/2023 07/31/2024 1 1 Specialty Diagnoses / Procedures Referred By Katlyn espinoza Referred To Contact Physical Medicine and Rehabilitation Diagnoses Lumbar radiculopathy Jennifer Russ PA-C [address] [facility] [address] [place] [address] Hoa Cruz MD [address] [facility] [address] [place] [address] Referral ID Status Reason Start Date Expiration Date Visits Requested Visits Authorized [id number] Pending Review Specialty Services Required/Pat ient's Best Interest 08/01/2023 07/31/2024 1 1 Additional Source Comments INFORMATION SOURCE (unrecogn ized section and content) DATE CREATED AUTHOR 05/12/2018 [facility] DATE CREATED AUTHOR AUTHOR'S ORGANIZ ATION 08/03/2019 [facility]) DATE CREATED AUTHOR AUTHOR'S ORGANIZ ATION 02/22/2021 [facility] DATE CREATED AUTHOR AUTHOR'S ORGANIZ ATION 04/19/2021 [facility] DATE CREATED AUTHOR AUTHOR'S ORGANIZ ATION 08/01/2023 [facility] DATE CREATED AUTHOR AUTHOR'S ORGANIZ ATION 11/24/2023 [facility] DATE CREATED AUTHOR AUTHOR'S ORGANIZ ATION 11/25/2023 [facility] DATE CREATED AUTHOR AUTHOR'S ORGANIZ ATION 12/04/2023 [facility] Reason for Visit (unrecogniz ed section and content) Status Reason Specialty Diagnoses / Procedures Referre d By Contact Referred To Contact Diagnoses N80.9 Procedures IN LAP,FULGURATE/EXCISE LESIONS IN LAP,RMV ADNEXAL STRUCTURE IN CYSTOSCOPY,DIL BLADDER,GEN ANESTH ROBOTIC ASSISTED LAPAROSCOPIC EXCISION OF ENDOMETRIOSIS, BILATERAL SALPINGECTOMY , CYSTOSCOPY WITH POSSIBLE HYDRODISTENTION, ERAS PROTOCOL Reason Comments Endometriosis Telehealth. Reason Comments Follow-up [...] Herniated lumbar intervertebral disc Elena Cowan, DO [address] [place] [address] Jessica Meyers Jr., DO [address] [facility] [address] [place] [address] Referral ID Status Reason Start Date Expiration Date Visits Re quested Visits Authorized [id number] Closed 02/25/2023 02/25/2024 1 1 Specialty Diagnoses / Procedures Referred By Katlyn espinoza Referred To Contact Diagnoses Lumbar radiculopathy Lumbar radiculopathy [M54.16] Procedures IN SKINNER FACETECTOMY & FORAMOTOMY 1 VRT SGM LUMBAR Jessica Meyers Jr., DO [address] [facility] [address] [place] [address] Referral ID Status Reason Start Date Expiration Date Visits Re quested Visits Authorized [id number] 04/14/2023 1 1 Reason Comments Follow-up Reason Comments Ovarian Cyst Reason Comments Endometriosis Ovarian Cyst Follow-up Patient presents tod for telehealth visit to follow-up recently diagnosed 7 cm ovarian cyst, suspected endometrioma. Reason Onset Date Comments Post-op Meds 10/20/2023 Reason Comments Post-op Pt presents today fo r a post op visit. Pt had an excision, left ovary cystectomy and right oophrectomy done on 10/29/23. Pt states she does not have any concerns. Bernabe Rouse MD - 11/09/2019 7:06 AM EDT H&P [...] (unrecognized section and content) Patient Instructions for [facility]: MAIN OR Prior to surgery: ? Please contact your Surgeon's office for the scheduled time of your surgery. ? Report to the Surgery Family Waiting Area in the [facility] 2 hours prior to your surgery. ? You may use the Char Conveyor Tender parking available at the Green Entrance /or park in the Green Parking Garage - a voucher for parking [...] both ring fingers. ? Remove all nail tanzanian/product for surgeries involving extremities. ? Please remember to bring both your insurance card and a photo ID with you on the day of surgery. After your surgery: ? If you are having outpatient surgery you must have a licensed delivery motorcycle driver to take you home. The expectation is that this delivery motorcycle driver will remain at the hospital for [...] 1990 (29 y.o.) Date of Service: 11/09/2019 [facility]: [phone] Procedure(s): ROBOTIC ASSISTED LAPAROSCOPIC EXCISION OF ENDOMETRIOSIS, BILATERAL SALPINGECTOMY, BILATERAL URETEROLYSIS, LEFT OVARIAN CYSTECTOMY, BILATERAL OVARIAN SUSPENSION, APPENDECTOMY CYSTOSCOPY WITH HYDRODISTENTION, ERAS PROTOCOL Pre-Operative Diagnoses: * Chronic pelvic pain in female [099850], Endometriosis [889733] Post-Operative Diagnoses: * Endometriosis of pelvic peritoneum [N80.3] * Endometriosis of parametrium [N80.3] * Endometriosis of rectovaginal septum [N80.4] * Endometrioma of ovary [N80.1] * Endometriosis of bladder [N80.8] * 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] * Adhesions due to endometriosis [N80.9] * Interstitial cystitis [N30.10] Surgeon(s) and Role: * Bernabe Rouse MD - Primary Anesthesiologist: Guille Ochoa MD DUPLICATING MACHINE SERVICER: Lisa Monroe CRNA Health Specialist Relief: Anais Ellis RN Scrub Person: [facility] Health Specialist [place]ee: Eva Du RN Health Specialist Preceptor: Mariah Parisi RN Manager Surgical: Roxie Escalante POWDER BLENDER AND POURER: Kassidy Mensah CNP Operative findings: Stage IV [...] psoas muscle Tissue Endometrium TISSUE EXAM Bernabe Rouse MD 11/09/2019 0820 B : Right IP Endo Tissue Endometrium TISSUE EXAM Bernabe Rouse MD 11/09/2019 0821 C : Right Pelvic Brim Tissue Endometrium TISSUE EXAM Bernabe Rouse MD 11/09/2019 0821 D : Right Sacral Tissue Endometrium TISSUE EXAM Bernabe Rouse MD 11/09/2019 0823 E : Right Iliac Endo Tissue Endometrium TISSUE EXAM Bernabe Rouse MD 11/09/2019 0824 F : Mid- Sacral Endo Tissue Endometrium TISSUE EXAM Bernabe Rouse MD 11/09/2019 0824 G : Right Ovarian Endo Tissue Endometrium TISSUE EXAM Bernabe Rouse MD 11/09/2019 0830 H : Right Ovarian Fossa Tissue Endometrium TISSUE EXAM Bernabe Rouse MD 11/09/2019 0833 I : Right Ovarian Fossa Tissue Endometrium TISSUE EXAM Bernabe Rouse MD 11/09/2019 0834 J : Right Uterosacral Ligament Endo Tissue Endometrium TISSUE EXAM Bernabe Rouse MD 11/09/2019 0848 K : Left Pelvic Brim Endo Tissue Endometrium TISSUE EXAM Bernabe Rouse MD 11/09/2019 0848 L : Tissue Fallopian Tube, Bilateral TISSUE EXAM Bernabe Rouse MD 11/09/2019 0850 M : Large Bowel Mesentery Endo Tissue Endometrium TISSUE EXAM Bernabe Rouse MD 11/09/2019 0856 N : Left Pelvic Sidewall Endo Tissue Endometrium TISSUE EXAM Bernabe Rouse MD 11/09/2019 0857 O : Left Bladder Endo Tissue Endometrium TISSUE EXAM Bernabe Rouse MD 11/09/2019 0858 P : Bladder Endo Tissue Endometrium TISSUE EXAM Bernabe Rouse MD 11/09/2019 0858 Q : Lower Uterine Segment Endo Tissue Endometrium TISSUE EXAM Bernabe Rouse MD 11/09/2019 0858 R : left ovarian endometrioma Tissue Endometrium TISSUE EXAM Bernabe Rouse MD 11/09/2019 0921 S : Left IP Endo Tissue Endometrium TISSUE EXAM Bernabe Rouse MD 11/09/2019 0943 T : Left Ovarian Fossa Tissue Endometrium TISSUE EXAM Bernabe Rouse MD 11/09/2019 0944 U : Left Uterosacral Ligament Endo Tissue Endometrium TISSUE EXAM Bernabe Rouse MD 11/09/2019 0944 V : Rectovaginal Septum Endo Tissue Endometrium TISSUE EXAM Bernabe Rouse MD 11/09/2019 1003 W : Right Perirectal Endo Tissue Endometrium TISSUE EXAM Bernabe Rouse MD 11/09/2019 1004 X : Left Perirectal Endo Tissue Endometrium TISSUE EXAM Bernabe Rouse MD 11/09/2019 1005 Y : Tissue Appendix TISSUE EXAM Bernabe Rouse MD 11/09/2019 1005 Implant(s): Implant Name Type Inv. Item Serial No. Retail Manager In Training Lot No. LRB No. Used Action BARRIER 5 X 6IN ADHESION TC 7 INTERCEED - [id number] BARRIER 5 X 6IN ADHESION TC 7 INTERCEED ETHICON [id number] N/A 1 Implanted CATH 5IN EXPANSION ON-Q SILVERSOAKER - [id number] Catheter - Implant CATH 5IN EXPANSION ON-Q SILVERSOAKER [employer] [id number] N/A 2 Implanted PUMP 100 X 2ML/HR BALL 2 DAY EXT RELEASE ON-Q - [id number] PUMP 100 X 2ML/HR BALL 2 DAY EXT RELEASE ON-Q [employer] [id number] N/A 1 Implanted KIT 10ML TISSEEL FROZEN W/ PRIMA SYRINGE - [id number] KIT 10ML TISSEEL FROZEN W/ PRIMA SYRINGE [employer] [id number] N/A 1 Implanted BARRIER 5 X 6IN ADHESION TC 7 INTERCEED - [id number] BARRIER 5 X 6IN ADHESION TC 7 INTERCEED ETHICON [id number] N/A 1 Implanted BARRIER 5 X 6IN ADHESION TC 7 INTERCEED - [id number] BARRIER 5 X 6IN ADHESION TC 7 INTERCEED ETHICON [id number] N/A 1 Implanted Drain(s): [REMOVED] Urethral Catheter Non-latex;Double-lumen;Straight-tip 16 Fr. (Removed) Wound(s): Wound 11/09/19 Surgical Wound Abdomen (Active) Dressing Status Dry;Intact;Occlusive 11/09/19 1050 Drainage Amount None 11/09/19 1050 Wound Bed Characteristics Intact;Approximated 11/09/19 1050 Wound Closure Surgical Adhesive 11/09/19 1050 Primary Dressing Gauze pad 11/09/19 1050 Secondary Dressing Transparent film 11/09/19 1050 Bernabe Rouse MD 11/09/2019 11:44 AM documented in this encounter Care Teams (unrecognized sec tion and content) Medical Scientific Liaison Relationship Specialty Start Date End Date Elena Cowan DO [address] [place], [place] [id number] PCP - General Family Medicine 07/23/19 Medical Scientific Liaison Relationship Specialty Start Date End Date Elena Cowan DO PCP - General Family Medicine 07/23/19 Medical Scientific Liaison Relationship Specialty Start Date End Date Elena Cowan DO PCP - General Family Medicine 07/23/19 Medical Scientific Liaison Relationship Specialty Start Date End Date Elena Cowan [address], [place] [id number] PCP - General Family Medicine 04/17/21 Medical Scientific Liaison Relationship Specialty Start Date End Date Elena Cowan [address] [place] [id number] PCP - General Family Medicine 04/17/21 Medical Scientific Liaison Relationship Specialty Start Date End Date Elena Cowan DO PCP - General Family Medicine 07/23/19 Medical Scientific Liaison Relationship Specialty Start Date End Date Elena Cowan DO PCP - General Family Medicine 07/23/19 Medical Scientific Liaison Relationship Specialty Start Date End Date Elena Cowan DO PCP - General Family Medicine 07/23/19 Medical Scientific Liaison Relationship Specialty Start Date End Date Elena Cowan DO [address] [place], [place] [id number] PCP - General Family Medicine 07/23/19 Medical Scientific Liaison Relationship Specialty Start Date End Date Elena Cowan DO [address] [place] [address] [place] [address] PCP - General Family Medicine 07/23/19 Medical Scientific Liaison Relationship Specialty Start Date End Date Elena Cowan DO [address] [place], [place] [id number] PCP - General Family Medicine 07/23/19 Medical Scientific Liaison Relationship Specialty Start Date End Date Elena Cowan DO [address] [place] [address] [place] [address] PCP - General Family Medicine 07/23/19 Bernabe Rouse MD [address] [facility] [place] [address] Consulting Physician Obstetrics/Gynecology 05/01/22 Medical Scientific Liaison Relationship Specialty Start Date End Date Elena Cowan DO [address] [place], [place] [id number] PCP - General Family Medicine 07/23/19 Bernabe Rouse MD [address] [place] [address] Consulting Physician Obstetrics/Gynecology 05/01/22 Medical Scientific Liaison Relationship Specialty Start Date End Date Elena Cowan DO [address] [place] [address] [place] [address] PCP - General Family Medicine 07/23/19 Bernabe Rouse MD [address] [place] [address] Consulting Physician Obstetrics/Gynecology 05/01/22 Medical Scientific Liaison Relationship Specialty Start Date End Date Elena Cowan DO [address] [place] [address] [place] [address] PCP - General Family Medicine 07/23/19 Bernabe Rouse MD [address] [place] [address] Consulting Physician Obstetrics/Gynecology 05/01/22 Medical Scientific Liaison Relationship Specialty Start Date End Date Elena Cowan DO [address] [place] [address] [place] [address] PCP - General Family Medicine 07/23/19 Bernabe Rouse MD [address] [place] [address] Consulting Physician Obstetrics/Gynecology 05/01/22 Medical Scientific Liaison Relationship Specialty Start Date End Date ChapoLigiaa DO Malu [address] [place] [address] [place] [address] PCP - General Family Medicine 07/23/19 Bernabe Rouse MD [address] [place] [address] Consulting Physician Obstetrics/Gynecology 05/01/22 Medical Scientific Liaison Relationship Specialty Start Date End Date Chapo Elena ToribioDO [address] [place] [address] [place] [address] PCP - General Family Medicine 07/23/19 Bernabe Rouse MD [address] [place] [id number] Consulting Physician Obstetrics/Gynecology 05/01/22 Medical Scientific Liaison Relationship Specialty Start Date End Date SaúlhennaElena DO [address] [place] [address] [place] [address] PCP - General Family Medicine 07/23/19 Bernabe Rouse MD [address] [place] [address] Consulting Physician Obstetrics/Gynecology 05/01/22 Medical Scientific Liaison Relationship Specialty Start Date End Date SaúlhennaElena DO [address] [place] [address] [place] [address] PCP - General Family Medicine 07/23/19 Bernabe Rouse MD [address] [place] [address] Consulting Physician Obstetrics/Gynecology 05/01/22 Medical Scientific Liaison Relationship Specialty Start Date End Date Elena Cowan DO [address] [place] [address] [place] [address] PCP - General Family Medicine 07/23/19 Bernabe Rouse MD [address] [place] [address] Consulting Physician Obstetrics/Gynecology 05/01/22 Medical Scientific Liaison Relationship Specialty Start Date End Date Elena Cowan DO [address] [place] [address] [place] [address] PCP - General Family Medicine 07/23/19 Bernabe Rouse MD [address] [place] [address] Consulting Physician Obstetrics/Gynecology 05/01/22 Medical Scientific Liaison Relationship Specialty Start Date End Date Elena Cowan DO [address] [place] [address] [place] [address] PCP - General Family Medicine 07/23/19 Bernabe Rouse MD [address] [place] [address] Consulting Physician Obstetrics/Gynecology 05/01/22 Medical Scientific Liaison Relationship Specialty Start Date End Date Elena Cowan [address] [place] [address] [place] [address] PCP - General Family Medicine 07/23/19 Bernabe Rouse MD [address] [place] [address] Consulting Physician Obstetrics/Gynecology 05/01/22 Medical Scientific Liaison Relationship Specialty Start Date End Date Elena Cowan DO [address] [place] [address] [place] [address] PCP - General Family Medicine 07/23/19 Bernabe Rouse MD [address] [place] [id number] Consulting Physician Obstetrics/Gynecology 05/01/22 Medical Scientific Liaison Relationship Specialty Start Date End Date ChapoLigiaa DO [place] [address] [place] [address] [place] [address] PCP - General Family Medicine 07/23/19 Bernabe Rouse MD [address] [place] [address] Consulting Physician Obstetrics/Gynecology 05/01/22 Medical Scientific Liaison Relationship Specialty Start Date End Date SaúlhennaLigiaa DO [place] [address] [place] [address] [place] [address] PCP - General Family Medicine 07/23/19 Bernabe Rouse MD [address] [place] [address] Consulting Physician Obstetrics/Gynecology 05/01/22 Medical Scientific Liaison Relationship Specialty Start Date End Date Elena Cowan DO [address] [place] [address] PCP - General Family Medicine 07/23/19 Bernabe Rouse MD [address] [place] [address] Consulting Physician Obstetrics/Gynecology 05/01/22 Medical Scientific Liaison Relationship Specialty Start Date End Date Bassam Bojorquez MD PCP - General Family Medicine 06/13/14 Medical Scientific Liaison Relationship Specialty Start Date End Date Chapo Elena DO [place] [address] [place] [address] PCP - General Family Medicine 07/23/19 Bernabe Rouse MD [address] [place] [address] Consulting Physician Obstetrics/Gynecology 05/01/22 Scheduled Active and Recently Administ ered Medications (unrecognized section and content) Medication Order 04/15/2021 04/16/2021 04/17/2021 acetaminophen (TYLENOL) 160 MG/5ML solution 650 mg 650 mg, Oral, EVERY 6 HOURS, First dose on Fri04/17/21 at 1000, Maximum dose of acetaminophen is 4000 mg from all sources in 24 hours., Post-op 0945 (Given - Provid er: Diamond Whitfield RN)1600 (Due)2200 (Due) ibuprofen (ADVIL;MOTRIN) 100 MG/5ML suspension 400 mg 400 mg, Oral, EVERY 8 HOURS, First dose on Fri04/17/21 at 1000, For 9 doses, Do not crush or chew., Post-op 1244 (Given - Provid er: Yoko Campos RN)1800 (Due) sodium chloride flush 0.9 % injection 10 mL 10 mL, IntraVENous, EVERY 12 HOURS SCHEDULED (2 times per day), First dose on Fri04/17/21 at 0945, Post-op 0945 (Due)2100 (Due) Continuous Medication Order 04/15/2021 04/16/2021 04/17/2021 lactated [...] PRN, Line Care, Starting on Fri04/17/21 at 0927, After every IV line use, Post-op Scheduled Medication Order 04/29/2023 04/30/2023 05/01/2023 ceFAZolin (ANCEF) IVPB 2 g (premix) (COMPLETED) 2,000 mg, Intravenous, at 200 mL/hr, Once, On Fri04/30/23 at 0800, For 1 dose, Pre-Procedure, Indication: Other (specify), Indication: preop 0927 (Given - Provider: Reuben Saldana MD) ceFAZolin (ANCEF) IVPB 2 g (premix) (COMPLETED) 2,000 mg, Intravenous, at 200 mL/hr, Every 8 hours, First dose on Fri04/30/23 at 1730, For 2 doses, Starting 8 hours after pre-procedure dose x 2 doses., Indication (POST PROCEDURE): Neurology 1713 (New Bag - Provider: Rosy Walton RN) 0128 (New Bag - Provider: Sumi Rogers RN)0202 (Stopped - Provider: Sumi Rogers RN) fluconazole (DIFLUCAN) tablet 200 mg (COMPLETED) 200 mg, Oral, Daily, First dose on Raven 05/01/23 at 0900, For 1 dose, CATEGORY D HAZARDOUS DRUG use safe handling precautions. Use reference link to view PPE guidelines. Minimize crushing/splitting only to situations where clinically necessary., Indication: Other: (specify), Indication: H/o yeast infections with Abx 0913 (Given - Provid er: Rosy Walton RN) loratadine (CLARITIN) tablet 10 mg 10 mg, Oral, Every evening, First dose on Fri04/30/23 at 2100 2239 (Given - Provider: Sumi Rogers RN - Comment: not available from Pharmacy) ondansetron (ZOFRAN) injection 4 mg (COMPLETED) 4 mg, Intravenous, Once, On Fri04/30/23 at 0845, For 1 dose, Pre-Procedure 0824 (Given - Provider: Debby Koch RN) pantoprazole (PROTONIX) EC tablet 40 mg 40 mg, Oral, Daily, First dose on Fri04/30/23 at 1430, DO NOT CRUSH OR CHEW. 1706 (Given - Provider: Rosy Walton RN) 0912 (Given - Provider: Rosy Walton RN) psyllium (METAMUCIL) powder 1 packet 1 packet, Oral, Every evening, First dose on Fri04/30/23 at 2100 2239 (Given - Provider: Sumi Rogers RN - Comment: not available from Pharmacy) senna-docusate (SENNA-S) 8.6-50 mg per tablet 2 tablet 2 tablet, Oral, 2 times daily, First dose on Fri04/30/23 at 2100, [] Hold for loose stools. Do Not Crush or Chew if administering orally due to bitter taste. May be crushed if given via tube. 2051 (Given - Provider: Sumi Rogers, YODIT) 911 (Given - Provider: Rosy Walton, YODIT) traZODone (DESYREL) tablet 50 mg 50 mg, Oral, Nightly, First dose on Fri04/30/23 at 2100 2100 (Not Given - Provider: Sumi Rogers RN - Reason: Patient/family refused) Continuous Medication Order 04/29/2023 04/30/2023 05/01/2023 lactated Ringers infusion 125 mL/hr, Intravenous, Continuous, Starting on Fri04/30/23 at 1115, PACU (only) 1115 (Canceled Entry - Provider: Rosy Walton RN) sodium chloride 0.9% (NS) (CANCELED) 50 mL/hr, Intravenous, Continuous, Starting on Fri04/30/23 at 0800, Pre-Procedure 0824 (New Bag - Provider: Debby Koch RN)0922 (Continued by Anesthesia - Provider: Reuben Saldana MD)1014 (Paused - Provider: Reuben Saldana MD - Comment: Switch to gravity)1015 (Restarted - Provider: Reuben Saldana MD)1111 (New Bag - Provider: Justyna Archer RN) 0900 (Stopped - Provider: Gala Donovan RN) PRN Medication Order 04/29/2023 04/30/2023 05/01/2023 cyclobenzaprine (FLEXERIL) tablet 5 mg 5 mg, Oral, 3 times daily PRN, muscle spasms, Starting on Fri04/30/23 at 1202 1706 (Given - Provider: Rosy Walton, YODIT)2201 (Canceled Entry - Provider: Heather Galindo RN) 0119 (Given - Provider: Sumi Rogers RN)1025 (Given - Provider: Rosy Walton, YODIT) fentaNYL (SUBLIMAZE) inj syringe 25 mcg (COMPLETED) 25 mcg, Intravenous, Every 5 min PRN, moderate to severe pain, Starting on Fri04/30/23 at 1020, For 4 doses, PACU (only), [] Do not give more than 100 mcg while in PACU. 1050 (Given - Provider: Justyna Archer RN)1057 (Given - Provider: Justyna Archer RN)1103 (Given - Provider: Justyna Archer RN)1112 (Given - Provider: Justyna Archer RN) gentamicin (GARAMYCIN) 160 mg in sodium chloride (NS) 0.9 % 1,000 mL irrigation (CANCELED) As needed, Starting on Fri04/30/23 at 0939, Intra-Procedure 0939 (Given - Provider: Jessica Meyers Jr., DO - Comment: DELIVERED TO [employer]) HYDROmorphone (DILAUDID) injection 0.25-0.5 mg 0.25-0.5 mg, Intravenous, Every 3 hours PRN, moderate to severe pain, Starting on Fri04/30/23 at 1202, [] Initiate with 0.25 mg IV every 3 hours prn moderate to severe pain. [] For unrelieved pain, may repeat 0.25 mg IV dose within 30 minutes of initial dose. [] If pain is RELIEVED after repeat dose, change to 0.5 mg IV every 3 hours prn moderate to severe pain. [] If pain is UNrelieved after repeat dose, or patient requires dose reduction, call physician. [] May use IV for breakthrough pain or if unable to tolerate oral route. HYDROmorphone (DILAUDID) injection 0.5 mg (CANCELED) 0.5 mg, Intravenous, Every 5 min PRN, Pain, Starting on Fri04/30/23 at 1020, For 6 doses, PACU (only), Give if fentanyl not effective or not ordered. Do not give more than 3 mg total. 1120 (Given - Provider: Justyna Archer RN) lidocaine-EPINEPHrine 1 %-1:200,000 injection (CANCELED) As needed, Starting on Fri04/30/23 at 0938, Intra-Procedure 0938 (Given - Provider: Jessica Meyers Jr., DO - Comment: DELIVERED TO [employer]) naloxone (NARCAN) injection 0.1 mg(Linked Group 1) 0.1 mg, Intravenous, As needed, opioid reversal, For respiratory rate less than or equal to 8 per minute., Starting on Fri04/30/23 at 1202, Mix nalOXone (NARCAN) 0.4 mg (1mL) with 9 mL of Normal Saline to total 10 mL. Administer 0.1 mg (2.5mL) IV Push every 2 minutes until respiratory rate is 10 or greater. naloxone (NARCAN) injection 0.4 mg(Linked Group 1) 0.4 mg, Intravenous, As needed, opioid reversal, patient is pulseless, breathless, and unresponsive, Starting on Fri04/30/23 at 1202, Call a code first, then administer naloxone dose undiluted IV Push over 30 seconds. ondansetron (ZOFRAN-ODT) disintegrating tablet 4 mg 4 mg, Oral, Every 6 hours PRN, nausea, vomiting, Starting on Fri04/30/23 at 1202, Orally disintegrating tablet: Open blister pack and place tablet on the tongue; tablet is formulated to dissolve on the tongue without water; do not split tablet. Formulation requires tablet remain in sealed package until immediately prior to dose being administered. oxyCODONE (ROXICODONE) immediate release tablet 5-10 mg 5-10 mg, Oral, Every 4 hours PRN, moderate to severe pain, Starting on Fri04/30/23 at 1202, [] Initiate with 5 mg oral every 4 hours prn moderate to severe pain. [] For unrelieved pain, may repeat 5 mg oral dose within 60 minutes of initial dose. [] If pain is RELIEVED after repeat dose, change to 10 mg oral every 4 hours prn moderate to severe pain. [] If pain is UNrelieved after repeat dose, or patient requires dose reduction, call physician. 1025 (Given - Provid er: Rosy Walton RN) thrombin (bovine) spray (CANCELED) As needed, Starting on Fri04/30/23 at 0943, Intra-Procedure 0943 (Given - Provider: Jessica Meyers Jr., DO - Comment: DELIVERED TO [employer]) traMADol (ULTRAM) tablet 50 mg 50 mg, Oral, Every 6 hours PRN, moderate to severe pain, pain, Starting on Fri04/30/23 at 2110 2203 (Given - Provider: Heather Galindo RN) Linked Groups Order Group 1: naloxone (NARCAN) injection 0.1 mgJump to med 0.1 mg, Intravenous, As needed, opioid reversal, For respiratory rate less than or equal to 8 per minute., Starting on Fri04/30/23 at 1202, Mix nalOXone (NARCAN) 0.4 mg (1mL) with 9 mL of Normal Saline to total 10 mL. Administer 0.1 mg (2.5mL) IV Push every 2 minutes until respiratory rate is 10 or greater. And Notify physician (CANCELED) STAT, Until discontinued, Starting on Fri04/30/23 at 1203, Until Specified, Respiratory rate less than: 8, For respiratory rate less than or equal to 8, notify physician and/or appropriate staff for additional orders. And naloxone (NARCAN) injection 0.4 mgJump to med 0.4 mg, Intravenous, As needed, opioid reversal, patient is pulseless, breathless, and unresponsive, Starting on Fri04/30/23 at 1202, Call a code first, then administer naloxone dose undiluted IV Push over 30 seconds. Source Comments (unrecognize d section and content) In the event this informatio n is protected by the Federal Confidentiality of Alcohol and Drug Abuse Patient Records regulations: The Federal rules restrict any use of the information to criminally investigate or prosecute any alcohol or drug abuse patient.[facility] FOR RECORDS PERTAINING TO PATIENTS WHO ARE [...] BE BASED ON THE PRIMARY CLINICAL RECORDS. [facility] [employer] [facility]. provides no warranty or guarantee of the accuracy or completeness of information in this document.
== END | disposition home or self-care (01) ==
PROVIDERS: PCP Family Medicine; Visit Provider Internal Medicine Gastroenterology
DX: K59.00 Constipation, unspecified (principal)
CPT/HCPCS: 74018

== ENCOUNTER → 2023-12-06 | Outpatient (CLI) | payer BC, SELFPAY ==
--- OUTSIDE RECORDS SUMMARY | 2023-12-06 15:50 | XMS RPT_ITS | CCD ---
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 Name Role Phone SONYA, LEONIDAS Admitting Unavailable SONYA, LEONIDAS Attending Unavailable MALYS, ELENA A Primary Care Unavailable SONYA, LEONIDAS Admitting Unavailable SONYA, LEONIDAS Attending Unavailable MALYS, ELENA A Primary Care Unavailable Malys, Elena A Primary Care Provider Malys DO, Elena A Primary Care Provider Malys DO, Elena A Primary Care Provider Saúlys, Elena A Primary Care Provider [phone] MALYS, ELENA A Primary Care Unavailable MARCUS HORNE Referring Unavailable DUNAWAY, JOSE ROBERTO R Admitting Unavailable DUNAWAY, JOSE ROBERTO R Attending Unavailable MALYS, ELENA A Primary Care Unavailable Malys DO, Elena A Primary Care Provider Malys DO, Elena A Primary Care Provider La Nena MORGAN, Bernabe Unavailable [phone] GLENYS CORTÉS Referring Unavaila ble MILANAGLENYS Attending [...] MALYS, ELENA A Primary Care Unavailable JOHN YODER Admitting Unavailable DORBISH JR., JESSICA MEDEROS Admitting [...] Drug Allergy 04-03-19 22 Shortness Of Breath [facility] Anti-Epileptic Agents (4 sources) gabapentin Drug Allergy 04-02-19 22 Other (See Comments) [facility] Corticosteroids (4 sources) Dexamethasone Drug Allergy 04-09-19 23 Other (See Comments) [facility] DULoxetine (4 sources) DULoxetine Drug Allergy 10-09-19 22 Other (See Comments) [facility] [place] Carbonate (4 sources) [place] Carbonate Drug Allergy 10-09-19 22 Other (See Comments) [facility] nickel (4 sources) nickel Drug Allergy 01-04-20 18 Hives, Rash [facility] Penicillins (antibiotic) (4 sources) Penicillin Drug Allergy 10-19-19 21 Other (See Comments) [facility] risperiDONE (4 sources) risperiDONE Drug Allergy 04-03-19 22 Shortness Of Breath [facility] Serotonin Reuptake Inhibitors (SSRIs) (4 sources) FLUoxetine Drug Allergy 10-09-19 22 Shortness Of Breath [facility] (20 sources) Penicillin; Translations: [PENICILLIN] Drug Allergy 10-19-19 21 Other (See Comments) [facility] Repository (20 sources) amLODIPine; Translations: [AMLODIPINE] Drug Allergy 04-03-19 Shortness Of Breath [facility] (20 sources) gabapentin; Translations: [GABAPENTIN] Drug Allergy 04-02-19 22 Other (See Comments) [employer] Work Phone: (1 source) Penicillins Propensity to adverse reactions to drug 04-18-19 [facility] (20 sources) risperiDONE; Translations: [RISPERIDONE] Drug Allergy 04-03-19 Shortness Of Breath [facility] [employer] Work Phone: (20 sources) DULoxetine; Translations: [DULOXETINE] Drug Allergy 10-09-19 22 Other (See Comments) [facility] (20 sources) FLUoxetine; Translations: [FLUOXETINE] Drug Allergy 10-09-19 Shortness Of Breath [facility] (20 sources) [place] Carbonate; Translations: [LITHIUM CARBONATE] Drug Allergy 10-09-19 Other (See Comments) [facility] (20 sources) nickel; Translations: [NICKEL] Drug Allergy 01-04-20 18 Hives, Rash [facility] (20 sources) Dexamethasone; Translations: [DEXAMETHASONE (PF)] Drug Allergy 04-09-19 23 Other (See Comments) [facility] Medications Current Medications Medication Drug Class(es) Dates [...] . 10/20/2023 Discontinued take 2 capsules by [facility] once daily cholecalciferol, vitamin [...] Taking at Discharge) take 1 capsule by [facility] once daily in the morning cholecalciferol, vitamin D3, 50 mcg (2,000 unit) cap Take 2,000 Units by mouth every morning . 0 Active take 1 capsule by [facility] once daily Cholecalciferol (VITAMIN D3) 50 MCG [...] Discharge) docusate sodium 50 mg / sennosides, alf 8.6 mg oral tablet (5 sources) Start: [...] 2 04/01/2021 Active 21 day ethinyl estradiol 0.546166 mg/hr / etonogestrel 0.005 mg/hr vaginal system [...] 0 07/11/2019 Active 273 day ethinyl estradiol 0.763842 mg/hr / segesterone acetate 0.38965 mg/hr vaginal system (8 sources) Estrogen Start: [...] capsule by mouth every morning . Active Ayui-Yxclefc-Tnofms Ant-Camph (CBD KINGS EX) (2 sources) Ixzg-Mrombpj-Vrx hyl Ant-Camph (CBD KINGS EX) Apply topically [...] NONFORMULARY (2 sources) NONFORMULARY CBD 0 Active Manly 3-6-9 Fatty Acids (TRIPLE OMEGA-3-6-9 PO) (2 sources) Manly 3-6-9 Fatt y Acids (TRIPLE OMEGA-3-6-9 PO) [...] Discharge) Start: 10-26-2020 take 1 capsule by [facility] once daily in the evening OMEGA 3,6,9 [...] Discontinued Start: 12-31-2017 take 1 capsule by [facility] three times daily omega-3 fatty acids/fish oil (fish oil-omega-3 fatty acids) 300-1,000 mg capsule Take 1 (one) capsule by mouth 3 (three) times a day . 12/31/2017 Active Start: 12-31-2017 take 1 capsule by [facility] three times daily omega-3 fatty acids/fish oil (fish oil-omega-3 fatty acids) 300-1,000 mg capsule Take 1 (one) capsule by mouth 3 (three) times a day . 0 12/31/2017 Active take 2 capsules by [facility] twice daily omega-3 fatty [...] dose on Fri04/30/23 at 2100 vitamin a 14059 unt oral capsule (10 sources) Vitamin A End: 10-28-2021 take 1 capsule by mouth once daily vitamin A 77366 UNIT capsule Take 10,000 Units by mouth [...] Onset: 05-07-2018 Other aftercare (1 source) Other shelter (current) drug therapy; Translations: [OTH [facility] CURRENT DRUG THERAPY] Onset: 05-07-2018 Episodic Other [...] extension. 2. Degenerative disc changes at L4-5. [employer] Workstation ID: [id number] Dictated by: LEONIDAS PHAN on FriNov 25, 2023 9:49:55 AM EDT Transcribed by: SHREE FRASER on FriNov 25, 2023 10:20:05 AM EDT Finalized by: LEONIDAS PHAN on FriNov 25, 2023 10:58:09 AM EDT Normal [facility] Comment on above: Order Comment: Injur [...] Skull base intact. Orbital contents are normal. Assembly Loader spaces are normal. Parotid glands are normal. [...] on FriNov 19, 2023 9:15:01 PM EDT [facility] Comment on above: Order Comment: PT/FA X [...] (Unsp spec)Ordered By: Nicole Cleary on 11-14-2023 [facility] Urine Aerobic CultureOrdered By: Nicole Cleary on 11-14-2023 Bacteria identified Aer cx Nom (Unsp spec) No Growth (<1,000 CFU/mL) [facility] URINALYSISon 11-13-2023 BACTERIA, URINE None Seen Normal None Seen [facility] Comment on above: Order Comment: Micro scopic examination is performed on all urinalysis samples and only positive findings are reported. The test for blood on the chemical analytic portion of urinalysis may also be positive due to hemoglobinuria and myoglobinuria and if red blood cells are present they are quantified by microscopic examination. Performed By: #### [id number] #### [facility] [address] [place] [address] Nhan Cortez M.D. [id number] BILIRUBIN, URINE Negative Normal Negative [facility] Comment on above: Order Comment: Micro scopic examination is performed on all urinalysis samples and only positive findings are reported. The test for blood on the chemical analytic portion of urinalysis may also be positive due to hemoglobinuria and myoglobinuria and if red blood cells are present they are quantified by microscopic examination. Performed By: #### 4 [id number] #### [facility] [address] [place] [address] Nhan Cortez M.D. [id number] BLOOD, URINE Negative Normal Negative [facility] Comment on above: Order Comment: Micro scopic examination is performed on all urinalysis samples and only positive findings are reported. The test for blood on the chemical analytic portion of urinalysis may also be positive due to hemoglobinuria and myoglobinuria and if red blood cells are present they are quantified by microscopic examination. Performed By: #### 4 [id number] #### [place] [address] Nhan Cortez M.D. [id number] Clarity (U) Clear Normal Clear [facility] Comment on above: Order Comment: Micro scopic examination is performed on all urinalysis samples and only positive findings are reported. The test for blood on the chemical analytic portion of urinalysis may also be positive due to hemoglobinuria and myoglobinuria and if red blood cells are present they are quantified by microscopic examination. Performed By: #### 4 [id number] #### [facility] [address] [place] [address] Nhan Cortez M.D. [id number] Color (U) Yellow Normal Colorless, Yellow [facility] Comment on above: Order Comment: Micro scopic examination is performed on all urinalysis samples and only positive findings are reported. The test for blood on the chemical analytic portion of urinalysis may also be positive due to hemoglobinuria and myoglobinuria and if red blood cells are present they are quantified by microscopic examination. Performed By: #### 4 [id number] #### [facility] [address] [place] [address] Nhan Cortez M.D. [id number] Glucose Ql (U) Negative Normal Negative [facility] Comment on above: Order Comment: Micro scopic examination is performed on all urinalysis samples and only positive findings are reported. The test for blood on the chemical analytic portion of urinalysis may also be positive due to hemoglobinuria and myoglobinuria and if red blood cells are present they are quantified by microscopic examination. Performed By: #### 4 [id number] #### [facility] [address] [place] [address] Nhan Cortez M.D. [id number] Hyaline casts LM Ql (Urine sed) 0-2 Normal 0-2 [facility] Comment on above: Order Comment: Micro scopic examination is performed on all urinalysis samples and only positive findings are reported. The test for blood on the chemical analytic portion of urinalysis may also be positive due to hemoglobinuria and myoglobinuria and if red blood cells are present they are quantified by microscopic examination. Performed By: #### 4 [id number] #### [facility] [address] [place] [address] Nhan Cortez M.D. [id number] Ketones Ql (U) Negative Normal Negative [facility] Comment on above: Order Comment: Micro scopic examination is performed on all urinalysis samples and only positive findings are reported. The test for blood on the chemical analytic portion of urinalysis may also be positive due to hemoglobinuria and myoglobinuria and if red blood cells are present they are quantified by microscopic examination. Performed By: #### 4 [id number] #### [facility] [address] [place] [address] Nhan Cortez M.D. [id number] Leukocyte esterase Test strip Ql (U) Negative Normal Negative [facility] Comment on above: Order Comment: Micro scopic examination is performed on all urinalysis samples and only positive findings are reported. The test for blood on the chemical analytic portion of urinalysis may also be positive due to hemoglobinuria and myoglobinuria and if red blood cells are present they are quantified by microscopic examination. Performed By: #### 4 [id number] #### [facility] [address] [place] [address] Nhan Cortez M.D. [id number] MUCUS, URINE Rare Normal None Seen, Rare [facility] Comment on above: Order Comment: Micro scopic examination is performed on all urinalysis samples and only positive findings are reported. The test for blood on the chemical analytic portion of urinalysis may also be positive due to hemoglobinuria and myoglobinuria and if red blood cells are present they are quantified by microscopic examination. Performed By: #### 4 [id number] #### [address] [address] Nhan Cortez M.D. [id number] NITRITE, URINE Negative Normal Negative [facility] Comment on above: Order Comment: Micro scopic examination is performed on all urinalysis samples and only positive findings are reported. The test for blood on the chemical analytic portion of urinalysis may also be positive due to hemoglobinuria and myoglobinuria and if red blood cells are present they are quantified by microscopic examination. Performed By: #### 4 [id number] #### [facility] [address] [place] [address] Nhan Cortez M.D. [id number] pH (U) 5.0 [pH] Normal 5.0-7.0 [facility] Comment on above: Order Comment: Micro scopic examination is performed on all urinalysis samples and only positive findings are reported. The test for blood on the chemical analytic portion of urinalysis may also be positive due to hemoglobinuria and myoglobinuria and if red blood cells are present they are quantified by microscopic examination. Performed By: #### 4 [id number] #### [facility] [address] [place] [address] Nhan Cortez M.D. [id number] PROTEIN, URINE Negative Normal Negative [facility] Comment on above: Order Comment: Micro scopic examination is performed on all urinalysis samples and only positive findings are reported. The test for blood on the chemical analytic portion of urinalysis may also be positive due to hemoglobinuria and myoglobinuria and if red blood cells are present they are quantified by microscopic examination. Performed By: #### 4 [id number] #### [facility] [address] [place] [address] Nhan Cortez M.D. [id number] Specific gravity (U) [Rel density] 1.013 Normal 1.005-1.025 [facility] Comment on above: Order Comment: Micro scopic examination is performed on all urinalysis samples and only positive findings are reported. The test for blood on the chemical analytic portion of urinalysis may also be positive due to hemoglobinuria and myoglobinuria and if red blood cells are present they are quantified by microscopic examination. Performed By: #### 4 [id number] #### [place] [id number] Nhan Cortez M.D. [id number] SQUAMOUS EPITHELIAL 1 /hpf Normal 0-4 [facility] Comment on above: Order Comment: Micro scopic examination is performed on all urinalysis samples and only positive findings are reported. The test for blood on the chemical analytic portion of urinalysis may also be positive due to hemoglobinuria and myoglobinuria and if red blood cells are present they are quantified by microscopic examination. Performed By: #### 4 [id number] #### [facility] [address] [place] [address] Nhan Cortez M.D. [id number] UROBILINOGEN, URINE <2.0 Normal <2.0 [facility] Comment on above: Order Comment: Micro scopic examination is performed on all urinalysis samples and only positive findings are reported. The test for blood on the chemical analytic portion of urinalysis may also be positive due to hemoglobinuria and myoglobinuria and if red blood cells are present they are quantified by microscopic examination. Performed By: #### 4 [id number] #### [facility] [address] [place], [place] [id number] Nhan Cortez M.D. [id number] WBC, URINE < Normal 0-5 [facility] Comment on above: Order Comment: Micro scopic examination is performed on all urinalysis samples and only positive findings are reported. The test for blood on the chemical analytic portion of urinalysis may also be positive due to hemoglobinuria and myoglobinuria and if red blood cells are present they are quantified by microscopic examination. Performed By: #### 4 [id number] #### [facility] [address] [place] [address] Nhan Cortez M.D. [id number] URINE AEROBIC CULTUREon URINE AEROBIC CULTURE URINE CULTURE No Growth (<1,000 CFU/mL) Normal [facility] Comment on above: Performed By: #### 4 [id number] #### [facility] [address] [place] [address] Nhan Cortez M.D. [id number] UrinalysisOrdered By: Yisel Martin on 11-13-2023 Bacteria Auto Ql (U) None Seen None Se en /hpf [facility] Bilirubin Ql (U) Negative Negative [facility] th Clarity Refractometry automated (U) Clear Clear [facility] Color (U) Yellow Colorless, Yellow [facility] Epithelial cells.squamous Auto (Urine sed) [#/Area] 1 [facility] Glucose Auto test strip (U) [Mass/Vol] Negative Negative mg/dL [facility] Hemoglobin Auto test strip Ql (U) Negative Negative [facility] Hyaline casts Auto (Urine sed) [#/Area] 0-2 [facility] Interpretation and review of laboratory results Normal [facility] Ketones (U) [Mass/Vol] Negative Negat larisa mg/dL [facility] Leukocyte esterase Auto test strip Ql (U) Negative Negative [facility] Mucus Auto (Urine sed) [#/Area] Rare None Seen, Rare /lpf [facility] Nitrite Auto test strip Ql (U) Negative Negative [facility] pH (U) 5.0 [pH] 5.0 - 7.0 [facility] Protein (U) [Mass/Vol] Negative Negat larisa mg/dL [facility] Specific gravity (U) [Rel density] 1.013 1.005 - 1.025 [facility] Urobilinogen (U) [Mass/Vol] mg/dL NINF - 2.0 mg/dL [facility] WBC Auto (Urine sed) [#/Area] [facility] Microscopic examination is performed on all urinalysis samples and only positive findings are reported. The test for blood on the chemical analytic portion of urinalysis may also be positive due to hemoglobinuria and myoglobinuria and if red blood cells are present they are quantified by microscopic examination. [facility] OP NOTEon 10-29-2023 OP NOTE Operative Note [...] left ovarian cyst. SURGEON: Bernabe Rouse MD DIVERSIFIED CROPS FARMWORKER: Kassidy Mensah CNP No qualified Resident was available to bedside assist in the case therefore due to the complexity, Kassidy Mensah CNP was utilized as my assistant elementary teacher. OR STAFF: Wire Mesh Gate Assembler Relief: Farnaz Simon RN Wire Mesh Gate Assembler Orientee: Esther Hoff RN Wire Mesh Gate Assembler Preceptor: Esther Elaine RN Rivet Passer: Darlene Gutierrez Scrub Person Preceptor: Kelley Stein [...] Implant Name Type Inv. Item Serial No. Director Of Accounting Lot No. LRB No. Used Action BARRIER 5 X 6IN ADHESION TC 7 INTERCEED - [id number] BARRIER 5 X 6IN ADHESION TC 7 INTERCEED ETHICON [id number] N/A 1 Implanted CATH 5IN EXPANSION ON-Q SILVERSOAKER - [id number] Catheter - Implant CATH 5IN EXPANSION ON-Q SILVERSOAKER [employer] [id number] N/A 1 Implanted CATH 5IN EXPANSION ON-Q SILVERSOAKER - [id number] Catheter - Implant CATH 5IN EXPANSION ON-Q SILVERSOAKER [employer] [id number] N/A 1 Implanted PUMP 600ML DUAL ON-Q LHILPE-J-TTFF - [id number] PUMP 600ML DUAL ON-Q ECAPIL-P-ZJAV [employer] [id number] N/A 1 Implanted HEMOSTAT 3G POWDER ABSORBABLE SURGICEL - [id number] HEMOSTAT 3G POWDER ABSORBABLE SURGICEL ETHICON 100EM1 [...] was secured to the OR table with [place]enhall Pad. She was tested in extreme Trendelenburg [...] a 5 (more content not included)... Normal [facility] POC GLUCOSE - Joel 024 Glucose [Mass/Vol] 87 mg/dL Normal 65-99 [facility] Comment on above: Performed By: #### 4 [id number] #### [facility] [address] [place] [address] [id number] [facility] TISSUE EXAMon 10-29-2023 TISSUE EXAM Surgical Pathology Report Case: [id number] Authorizing Provider: Bernabe Rouse, Collected: 10/29/2023 08:38 AM Ordering Location: [facility] Received: 10/29/2023 10:12 AM Hospital Periop Pathologist: [...] thickened. Uninvolved ovarian parenchyma is not appreciated. Manufacturer Representative sections of the specimen are submitted in cassettes A1-A4. M/4. Specimen B. Received in formalin labeled MindyAmarilisCaroline M and designated small bowel endo and consists of a rubbery nguyen sheet of fibrous tissue, that is 1.6 x 1.0 x 0.2 cm. The specimen is trisected and entirely submitted. All /. LG/KK/sb Gross examination performed at: [facility] - [address] [place] [address] Microscopic examination is performed. Normal [facility] Comment on above: Performed By: #### 4 [id number] #### [facility] [address] [place] [address] Nhan Cortez M.D. [id number] Blood type and Indirect anti body screen panel (Bld)on 10-20-2023 ABO and Rh group Nom (Bld) Blood group O Rh(D) positive [facility] Blood group antibody screen Ql Negative [facility] Specimen Expires 11/10/2023 23:59 EST [facility] CBCon 10-20-2023 AUTO NRBC 0.0 % Normal [facility] Comment on above: Performed By: #### 4 [id number] #### [facility] [address] [place] [address] Nhan Cortez M.D. [id number] AUTO NRBC ABS COUNT 0.00 K/mcL Normal 0.00-0.00 [facility] Comment on above: Performed By: #### 4 [id number] #### [facility] [address] [place] [address] Nhan Cortez M.D. [id number] Erythrocyte distribution width (RBC) [Ratio] 11.8 % Normal 11.6-14.8 [facility] Comment on above: Performed By: #### 4 [id number] #### [facility] [address] [place] [address] Nhan Cortez M.D. [id number] Hematocrit (Bld) [Volume fraction] 43.4 % Normal 36.0-46.0 [facility] Comment on above: Performed By: #### 4 [id number] #### [facility] [address] [place] [address] Nhan Cortez M.D. [id number] Hemoglobin (Bld) [Mass/Vol] 14.6 g/dL Normal 12.0-16.0 [facility] Comment on above: Performed By: #### 4 [id number] #### [facility] [address] [place], [place] [id number] Nhan Cortez M.D. [id number] MCH (RBC) [Entitic mass] 30.7 pg Normal 26.0-34.0 [facility] Comment on above: Performed By: #### 4 [id number] #### [facility] [address] [place], [place] [address] Nhan Cortez M.D. [id number] MCV (RBC) [Entitic vol] 91.2 fL Normal 80.0-100.0 [facility] Comment on above: Performed By: #### 4 [id number] #### [facility] [address] [place] [address] Nhan Cortez M.D. [id number] MEAN CORPUSCULAR HEMOGLOBIN CONC 33.6 g/dL Normal 31.0-37.0 [facility] Comment on above: Performed By: #### 4 [id number] #### [facility] [address] [place], [place] [address] Nhan Cortez M.D. [id number] Platelet mean volume (Bld) [Entitic vol] 9.8 fL Normal 9.4-12.4 [facility] Comment on above: Performed By: #### 4 [id number] #### [facility] [address] [place], [place] [id number] Nhan Cortez M.D. [id number] Platelets (Bld) [#/Vol] 384 10*3/uL Normal 150-400 [facility] Comment on above: Performed By: #### 4 [id number] #### [facility] [address] [place], [place] [id number] Nhan Cortez M.D. [id number] RBC (Bld) [#/Vol] 4.76 10*6/uL Normal 4.00-5.20 [facility] Comment on above: Performed By: #### 4 [id number] #### [facility] [address] [place] [address] Nhan Cortez M.D. [id number] WBC (Bld) [#/Vol] 7.20 10*3/uL Normal 4.50-11.00 [facility] [place] Comment on above: Performed By: #### 4 [id number] #### [facility] [address] [place], [place] [id number] Nhan Cortez M.D. [id number] CBC panel Auto (Bld)on 10-19 Erythrocyte distribution width (RBC) [Entitic vol] 11.8 % 11.6 - 14.8 % [facility] Hematocrit (Bld) [Volume fraction] 43.4 % 36.0 - 46.0 % [facility] Hemoglobin (Bld) [Mass/Vol] 14.6 g/dL 12.0 - 16.0 g/dL [facility] MCH (RBC) [Entitic mass] 30.7 pg 26.0 - 34.0 pg [facility] MCHC (RBC) [Mass/Vol] 33.6 g/dL 31.0 - 37.0 g/dL [facility] MCV (RBC) [Entitic vol] 91.2 fL 80.0 - 100.0 fL [facility] Nucleated RBC (Bld) [#/Vol] 0.00 10*3/uL [facility] Nucleated RBC/100 WBC (Bld) [Ratio] 0.0 % [facility] Platelet mean volume (Bld) [Entitic vol] 9.8 fL 9.4 - 12.4 fL [facility] Platelets (Bld) [#/Vol] 384 10*3/uL [facility] RBC (Bld) [#/Vol] 4.76 10*6/uL [facility] WBC (Bld) [#/Vol] 7.20 10*3/uL [facility] H AND Obdulio 10-20-2023 H AND P Assessment and Plan 1. Endometriosis determined by laparoscopy Primary management per SPOT MACHINE OPERATOR team. Patient provided instructions on preoperative management [...] acceptable cardiac risk based on the 2014 [place] [employer] (ACC/AHA) guidelines on Perioperative Cardiovascular Evaluation and Management of Patients Undergoing Noncardiac Surgery. Deep vein thrombosis prophylaxis deferred to surgical service, recommend 2016 [employer]ician Guidelines. Apfel score [...] Portions of this note were taken using [employer] dictation system. There may be unintended errors/omissions [...] Date Anxiety Arthritis Back pain Bipolar disorder ([facility]) April 2023 Bladder problem 2019 Interstitial Cystitis Chronic pain disorder 2018 Depression Endometriosis Fibromyalgia, primary GERD (gastroesophageal reflux disease) Headache IC (interstitial cystitis) pain on urination at times or if waits too long to urinate Neck pain Overactive bladder 2009 Patient had no falls in past year Peripheral neuropathy left fingers, left great toe and lower leg Psychiatric disorder Psychosis ([facility]) 02-24-2021 Temporary Caused by Dexamethasone Past Medical History Pertinent Negatives: Diagnosis Date Noted Alcoholism ([facility]) 04/25/2023 Anemia 04/25/2023 Arrhythmia 04/25/2023 Asthma 04/25/2023 Bleeding disorder ([facility]) 04/25/2023 Cancer ([facility]) 04/25/2023 Cataract 04/25/2023 CHF (congestive heart failure) ([facility]) 04/25/2023 Chronic kidney disease (CKD) 04/25/2023 Clostridium difficile infection 11/09/2019 Complication of anesthesia 11/09/2019 COPD (chronic obstructive pulmonary disease) ([facility]) 04/25/2023 Coronary artery disease 04/25/2023 Crohn's disease ([facility]) 04/25/2023 Deep vein thrombosis ([facility]) 04/25/2023 Dementia ([facility]) 04/25/2023 Dermatitis 04/25/2023 Diabetes mellitus type I ([facility]) 04/25/2023 Diabetes mellitus, type 2 ([facility]) 11/09/2019 Diverticulosis 04/25/2023 Edema 04/25/2023 Emphysema of lung ([facility]) 04/25/2023 ESBL (extended spectrum beta-lactamase) producing bacteria infection 04/25/2023 Gl (more content not included)... [facility] TYPE AND SCREENon 10-20-2023 TYPE AND SCREEN ABORH: O Positive AB SCREEN: Negative EXPIRATION DATE: 11/10/2023 23:59 EST [facility] Comment on above: Performed By: #### [id number] #### [facility] [address] [place] [address] Alessia Moralez MD [id number] [facility] [place] 125Ordered By: Jacky Garland ins on 08-20-2023 Cancer Ag 125 Qn 69.4 [arb'U]/mL High 0.0 - 35 .0 U/mL [facility] Interpretation and review of laboratory results Abnormal [facility] AFP TUMOR MARKERon 4 AFP TUMOR MARKER 1.4 ng/mL Normal 0.0-15.0 [facility] Comment on above: Order Comment: Assay performed by Miko Rajindre DXI Immunoassay. Performed By: #### 4 [id number] #### [facility] [address] [place] [address] Nhan Cortez M.D. [id number] AFP tumor markeron 4 AFP.tumor marker [Mass/Vol] 1.4 ng/mL 0.0 - 15.0 ng/mL [facility] Interpretation and review of laboratory results Normal [facility] Assay performed by Miko Rajinder DXI Immunoassay. [facility] [place] 125on 08-19-2023 CA 125 69.4 U/mL High 0.0-35.0 [facility] Comment on above: Performed By: #### 4 [id number] #### [facility] [address] [place], [place] [id number] Nhan Cortez M.D. [id number] [place] 19-9Ordered By: Grover triplett on 08-19-2023 Cancer Ag 19-9 Qn 5.2 [arb'U]/mL 0.0 - 40 .0 U/mL [facility] Interpretation and review of laboratory results Normal [facility] Assay performed by Miko Fitzhugh DXI Immunoassay. [facility] CA 19-9on 08-19-2023 CA 19-9 5.2 U/mL Normal 0.0-40.0 [facility] Comment on above: Order Comment: Assay performed by Miko Fitzhugh DXI Immunoassay. Performed By: #### 4 5186 #### [facility] [address] [place] [address] Nhan Cortez M.D. [id number] MR LUMBAR SPINE WITHOUT CONT [facility] 07-25-2023 MR LUMBAR SPINE WITHOUT CONTRAST EXAMINATION: [...] disc protrusion is seen. VVR/ Workstation ID: [id number] Dictated by: LUIGI HEATON V on FriJul 30, 2023 3:18:30 PM EDT Transcribed by: HADLEY MA on FriJul 30, 2023 3:29:53 PM EDT Finalized by: LUIGI HEATON V on FriJul 31, 2023 7:40:46 AM EDT [facility] Comment on above: Order Comment: Injur [...] on FriJul 24, 2023 3:49:22 PM EDT [facility] Comment on above: Order Comment: Injur [...] Interpretation and review of laboratory results Normal [facility] XR OR FLUOROSCOPY TIMEon XR OR FLUOROSCOPY TIME This is an auto finalized result. Please refer to patient chart for further information. further information. further information. Normal [facility] Comment on above: Order Comment: Injur y/Trauma or Illness?:Illness/Other How long have you had these symptoms (acute/chronic)?:Acute Reason for exam?:RADICULOPATHY Type of Exam?:Initial Additional signs and symptoms?:. Fluoro time in minutes:0.04 Fluoro dose in mGy?:0.62 XR and RF Chest PA and Later al and [facility] 04-30-2023 This is an auto finalized result. Please refer to patient chart for further information. [employer] US Transvaginalon 07-05-2021 Age: 30 LMP: Spotting [...] appearance. No free fluid in the pelvis. Equipment Maintenance Tech: Efren MARTIN, RDMS Images reviewed and above findings noted. Bernabe Rouse MD 07/05/21 10:03 PM [employer] [facility] Transvaginalon 07-02-2021 Radiology Study observation (narrative) [facility] COVID-19, Rapidon 04-17-2021 SARS-CoV-2 (COVID-19) RNA SAI+probe Ql (Unsp spec) Not detected Not Detected [facility] Comment on above: Rapid NAAT: The specimen [...] management decisions. Fact sheet for Healthcare Providers: https://www.fda.gov/media/777583/download Fact sheet for Patients: https://www.fda.gov/media/882339/download Methodology: Isothermal Nucleic Acid Amplification Specimen Description .NASOPHARYNGEAL SWAB [facility] [id number]-[id number] 04-17-2021 SARS-CoV-2 (COVID-19) RNA SAI+probe Ql (Unsp spec) Not detected Normal [facility] Comment on above: Result Comment: Rapid NAAT: [...] management decisions. Fact sheet for Healthcare Providers: https://www.fda.gov/media/792828/download Fact sheet for Patients: https://www.fda.gov/media/899145/download Methodology: Isothermal Nucleic Acid Amplification Performed By: #### C OVRB #### [facility] [address] [place] [address] Reo Asset Manager: Ron Guillen MD Surgical Pathologyon 022 Surgical [...] clefted nguyen-pink cut surfaces with no masses. Manufacturer Representative section of each 2cs. tm Microscopic Description Microscopic examination performed. SURGICAL PATHOLOGY CONSULTATION Patient Name: CAROLINE GUILLEN [facility] Rec: [id number] Path Number: [id number] [facility] ANATOMIC PATHOLOGY [address] [place] [phone] [facility] Comment on above: Performed By: #### P PPVS #### [employer] [address] [place] [address] [id number] Reo Asset Manager: Duong Coello MD US Transvaginalon 04-05-2021 Age: [...] appearance. No free fluid in the pelvis. Equipment Maintenance Tech: Efren MARTIN, RDMS Images reviewed and above findings noted. Ovarian cysts suspicious for endometrioma vs hemorrhagic cyst. Bernabe Rouse MD 04/05/21 12:36 AM [employer] [facility] US Transvaginalon 04-02-2021 Radiology Study observation (narrative) [facility] CNOVon 02-21-2021 CNOV Office Visit ([facility] ) MINDYCAROLINE ([id number]) 1990 F Date Time Provider Department 02/21/21 1:30 PM LEONIDAS CHATTERJEE [facility] During your visit today, we recorded the following information about you: Temperature Pulse Respiration Blood pressure 99.1 degrees 115/minute 16/minute 144/90 Weight Last Period 71 kg 02/21/21 Leonidas Chatterjee APRN.GAS METER READER 02/21/2021 2:35 PM Signed Subjective HPI Nontoxic-appearing [...] of care. This note was generated using e(ye)BRAIN software. It may contain errors in wording, [...] pain can (more content not included)... Normal [facility] XR HAND 3V PA/LAT/OBL RTon 0 [...] radiographic abnormalities seen in the right hand. Child Caregiver Private Home: [facility] Transcribe Date/Time: Feb 21 2021 2:18P Dictated by : MACHO YU MD This examination was interpreted and the report reviewed and electronically signed by: MACHO YU MD on Feb 21 2021 2:20PM EST [id number] Normal [facility] XR Hand - right PA and Later al and Obliqueon 02-21-2021 IMPRESSION: No acute radiographic abnormalities seen in the right hand. Child Caregiver Private Home: [facility] Transcribe Date/Time: Feb 21 2021 2:18P Dictated by : MACHO YU MD This examination was interpreted and the report reviewed and electronically signed by: MACHO YU MD on Feb 21 2021 2:20PM [facility] DIVISION OF RADIOLOGY * * *Final Report* [...] soft tissue swelling. DIVISION OF RADIOLOGY Provider, [facility] - 02/21/2021 * * *Final Report* * [...] radiographic abnormalities seen in the right hand. Child Caregiver Private Home: [facility] Transcribe Date/Time: Feb 21 2021 2:18P Dictated by : MACHO YU MD This examination was interpreted and the report reviewed and electronically signed by: MACHO YU MD on Feb 21 2021 2:20PM [facility] Radiology Study observation (narrative) [facility] XR Hand - right PA and Later al and ObliqueOrdered By: Ccf Provider on 02-21-2021 [facility] US TRANSVAGINALon 10-22-2020 Age: 29yo LMP: [...] of 0.51. The left ovary appears unremarkable. Equipment Maintenance Tech: Andreina Ibanez RDMS Images reviewed and above findings noted. Right ovarian cyst suspicious for an endometrioma versus hemorrhagic cyst. Bernabe Rouse MD 10/22/20 8:17 PM [employer] [facility] US TRANSVAGINALon 10-18-2020 Radiology Study observation (narrative) [facility] ABORH VERIFICATIONon 020 ABO and Rh group Nom (Bld) ABO/Rh Verification [facility] Comment on above: Patient's ABO/Rh is verified. ABO and Rh group Nom (Bld) O Positive [facility] CBCon 11-09-2019 Erythrocyte distribution width (RBC) [Entitic vol] 11.7 % 11.6 - 14.8 % [facility] Hematocrit (Bld) [Volume fraction] 42.3 % 36 - 46 % [facility] Hemoglobin (Bld) [Mass/Vol] 13.7 g/dL 12 - 16 g/dL [facility] Interpretation and review of laboratory results Abnormal [facility] MCH (RBC) [Entitic mass] 31.1 pg 26 - 34 pg [facility] MCHC (RBC) [Mass/Vol] 32.4 g/dL 31 - 37 g/dL [facility] MCV (RBC) [Entitic vol] 96.1 fL 80 - 100 fL [facility] Nucleated RBC (Bld) [#/Vol] 0.00 10*3/uL [facility] Nucleated RBC/100 WBC (Bld) [Ratio] 0.0 % [facility] Platelet mean volume (Bld) [Entitic vol] 10.3 fL 9.4 - 12.4 fL [facility] Platelets (Bld) [#/Vol] 351 10*3/uL [facility] RBC (Bld) [#/Vol] 4.40 10*6/uL [facility] WBC (Bld) [#/Vol] 14.75 10*3/uL High [facility] Otheron 11-09-2019 Interpretation and review of laboratory results Normal [facility] POC Glucoseon 11-09-2019 Glucose [Mass/Vol] 96 mg/dL 65 - 99 mg/dL [facility] POC , Urineon 11-08 Beta HCG ( test) Ql (U) Dilute urine specimens, as indicated by a low specific gravity (<1.010) may not contain aircraft sales representative levels of hCG. If is still suspected, a serum test or repeat urine test using a first morning urine specimen should be considered. [facility] HCG ( test) Ql (U) Negative Negative [facility] Type and Screenon 11-09-2019 ABO and Rh group Nom (Bld) O Positive [facility] Blood group antibody screen Ql Negative [facility] Specimen Expires 11/12/2019 23:59 EST [facility] HPVon 08-02-2019 HPV Interp Normal See Interp HPVN [facility] [place] Comment on above: Order Comment: Order placed by AP_HPV_ORDER rule from [id number] Result Comment: High Risk HPV Typing: NEGATIVE [...] HPVN Performed By: #### H PV #### [place] [address] HPV Source Cervix Normal [facility] [place] Comment on above: Order Comment: Order placed by AP_HPV_ORDER rule from [id number] Performed By: #### H PV #### [place] [address] [address] [facility] Cytology Reporton 2019 [facility] Cytology Report . Pathology Reports Accession: Collected Date/Time: Received Date/Time: Pathologist: [id number] 07/21/2019 15:49 EDT 07/22/2019 18:[address] [facility] Cytology Report SPECIMEN: Specimen Description: Liquid Prep w/ HPV Specimen: Cervical/Endocervical Screening or Diagnostic: Screening RELEVANT HISTORY: LMP: 07/12/2019 Control: Yes [id number] SPECIMEN ADEQUACY: SATISFACTORY FOR EVALUATION ENDOCERVICAL/TRANSFOR MATIONAL ZONE COMPONENT PRESENT INTERPRETATION/RESULT S: NEGATIVE FOR INTRAEPITHELIAL LESION OR MALIGNANCY ADJUNCTIVE TESTING: HIGH RISK HPV DNA TESTING ORDERED, REPORT TO FOLLOW UNDER SEPARATE COVER COMMENT: This Pap Test was successfully processed and evaluated with the assistance of the [employer] Test Imaging System. Electronically Signed by Pathology report verified by [facility] Screened by: GL Electronically signed by Tabatha Franz Sign-Out Date: 07/29/2019 13:59 Performing Lab: [address] Disclaimer The Pap test is a screening test for cervical cancer. As evidenced by published data, it is subject to both inherent false negative and false positive results. Your patient's results should be interpreted in context with pertinent clinical history including gynecological examination. Normal [facility] [place] Comment on above: Performed By: #### G YCR #### [place] [address] US TRANSVAGINAL NON OBon US TRANSVAGINAL NON OB ORIGINAL US PELVIS NON-OB TRANSABDOMINAL AND TRANSVAGINAL CLINICAL STATEMENT: Ovarian neoplasm COMPARISON: Ultrasound pelvis report from [facility] 04/09/2019 FINDINGS: The uterus measures 8.5 cm [...] 07/05/2019 9:39:36 AM Ordering Provider:Moriah Nelson [facility] [id number] 07-03-2019 [place] 125 28 U/mL Normal 2-35 [facility] Comment on above: Performed By: #### V IDH, CA125 #### [place] [id number] VIDHon 07-03-2019 Vit. D 25-Hydroxy 31 ng/mL Normal [facility] [place] Comment on above: Result Comment: Inte rpretive Values Based on Total 25(OH)D: Severe Deficiency <20 ng/mL Mild to Moderate Deficiency 20-30 ng/mL [employer] Levels 30-100 ng/mL Toxicity Possible >100 ng/mL Performed By: #### V IDH, CA125 #### [address] [address] Basic Metabolic Panelon 04-10 Anion gap molar conc 6 mmol/L Normal 5-10 [facility] Comment on above: Performed By: #### B MP #### [facility] [address] [place] [address] Calcium mass conc 9.4 mg/dL Normal 8.5-10.1 [facility] Comment on above: Performed By: #### B MP #### [address] [address] Chloride molar conc 105 mmol/L Normal 98-107 [facility] Comment on above: Performed By: #### B MP #### [facility] [address] [place] [address] CO2 molar conc 27 mmol/L Normal 21-32 [facility] Comment on above: Performed By: #### B MP #### [facility] [address] [place] [address] Creatinine mass conc 0.65 mg/dL Normal 0.60-1.30 [facility] Comment on above: Performed By: #### B MP #### [facility] [address] [place] [address] eGFR -Amer >60 Normal >=60 [facility] Comment on above: Performed By: #### B MP #### [facility] [address] [place] [address] GFR/1.73 sq M predicted among non-blacks MDRD vol rate/area (S/P/Bld) mL/min/{1.73_m2} Normal >=60 [facility] Comment on above: Performed By: #### B MP #### [facility] [address] [place], [place] [phone] Glucose mass conc 98 mg/dL Normal 74-106 [facility] Comment on above: Performed By: #### B MP #### [facility] [address] [place] [address] Potassium molar conc 3.9 mmol/L Normal 3.5-5.1 [facility] Comment on above: Performed By: #### B MP #### [facility] [address] [place] [address] Sodium molar conc 138 mmol/L Normal 136-145 [facility] Comment on above: Performed By: #### B MP #### [facility] [address] [place] [address] Urea nitrogen mass conc 8 mg/dL Normal 7-18 [facility] Comment on above: Performed By: #### B MP #### [address] [address] CBC with Diffon 04-27-2018 Basophils #/vol (Bld) 0.0 x(10)3/cumm Normal 0.0-0.1 [facility] Comment on above: Performed By: #### C BCDIFF #### [facility] [address] [place] [address] Basophils/100 WBC (Bld) 0.8 % Normal 0.0-1.0 [facility] Comment on above: Performed By: #### C BCDIFF #### [facility] [address] [place], [place] [phone] Eosinophils #/vol (Bld) 0.1 x(10)3/cumm Normal 0.0-0.4 [facility] Comment on above: Performed By: #### C BCDIFF #### [facility] [address] [place], [place] [phone] Eosinophils/100 WBC (Bld) 0.9 % Normal 0.0-6.1 [facility] Comment on above: Performed By: #### C BCDIFF #### [facility] [address] [place], [place] [phone] Erythrocyte distribution width Ratio (RBC) 12.0 % Normal 11.1-15.3 [facility] Comment on above: Performed By: #### C BCDIFF #### [facility] [address] [place], [place] [phone] Hematocrit Volume Fraction (Bld) 45.4 % High 34.6-45.0 [facility] Comment on above: Performed By: #### C BCDIFF #### [facility] [address] [place], [place] [phone] Hemoglobin mass conc (Bld) 15.0 g/dL Normal 11.5-15.5 [facility] Comment on above: Performed By: #### C BCDIFF #### [facility] [address] [place], [place] [phone] Lymphocytes #/vol (Bld) 1.8 x(10)3/cumm Normal 0.8-2.9 [facility] Comment on above: Performed By: #### C BCDIFF #### [facility] [address] [place], [place] [phone] Lymphocytes/100 WBC (Bld) 30.5 % Normal 12.2-42.6 [facility] Comment on above: Performed By: #### C BCDIFF #### [facility] [address] [place] [address] MCH Entitic mass (RBC) 31.1 pg Normal 27.2-33.6 [facility] Comment on above: Performed By: #### C BCDIFF #### [facility] [address] [place], [place] [id number] MCHC mass conc (RBC) 33.1 g/dL Normal 32.9-35.3 [facility] Comment on above: Performed By: #### C BCDIFF #### [facility] [address] [place], [place] [phone] MCV Entitic volume (RBC) 93.9 fL Normal 81.3-96.7 [facility] Comment on above: Performed By: #### C BCDIFF #### [facility] [address] [place], [place] [phone] Monocytes #/vol (Bld) 0.3 x(10)3/cumm Normal 0.2-0.8 [facility] Comment on above: Performed By: #### C BCDIFF #### [facility] [address] [place], [place] [phone] Monocytes/100 WBC (Bld) 5.7 % Normal 3.3-11.6 [facility] Comment on above: Performed By: #### C BCDIFF #### [facility] [address] [place], [place] [phone] Neutrophils #/vol (Bld) 3.6 x(10)3/cumm Normal 1.3-7.4 [facility] Comment on above: Performed By: #### C BCDIFF #### [facility] [address] [place], [place] [phone] Platelet mean volume Entitic volume (Bld) 7.7 fL Normal 6.4-10.0 [facility] Comment on above: Performed By: #### C BCDIFF #### [facility] [address] [place] [address] Platelets #/vol (Bld) 295 x(10)3/cumm Normal 138-367 [facility] Comment on above: Performed By: #### C BCDIFF #### [facility] [address] [place] [address] Plt Morph [facility] Comment on above: Performed By: #### C BCDIFF #### [facility] [address] [place] [address] RBC #/vol (Bld) 4.83 X(10)6/cumm Normal 3.90-5.10 [facility] Comment on above: Performed By: #### C BCDIFF #### [facility] [address] [place] [address] RBC Morph cont [facility] Comment on above: Performed By: #### C BCDIFF #### [facility] [address] [place] [address] RBC morphology finding Nom (Bld) [facility] Comment on above: Performed By: #### C BCDIFF #### [facility] [address] [place] [address] Segmented neutrophils/100 WBC (Bld) 62.1 % Normal 44.9-78.8 [facility] Comment on above: Performed By: #### C BCDIFF #### [facility] [address] [place] [address] WBC #/vol (Bld) 5.8 x(10)3/cumm Normal 3.6-10.3 [facility] Comment on above: Performed By: #### C BCDIFF #### [facility] [address] [place] [address] WBC Morph [facility] Comment on above: Performed By: #### C BCDIFF #### [address] [address] Vital Signs Date Time Vital Sign Value Performing Clinician Katie sampson 11-13-2023 08:52-0400 Body height 172.7 cm Bernabe Rouse MD Work Phone: [facility] 11-13-2023 08:52-0400 Body mass index (BMI) [Ratio] 26.12 kg/m2 Bernabe Rouse MD Work Phone: [facility] 11-13-2023 08:52-0400 Body weight 77.93 kg Bernabe Rouse MD Work Phone: [facility] 11-13-2023 08:52-0400 Diastolic blood pressure 85 mm[Hg] Bernabe Rouse MD Work Phone: [facility] 11-13-2023 08:52-0400 Heart rate 80 /min Bernabe Rouse MD Work Phone: [facility] 11-13-2023 08:52-0400 Systolic blood pressure 126 mm[Hg] Bernabe Rouse MD Work Phone: [facility] 10-20-2023 10:41-0400 Body height 172.7 cm Reuben Muhammad MD Work Phone: [facility] 10-20-2023 10:41-0400 Body mass index (BMI) [Ratio] 26 kg/m2 Reuben Muhammad MD Work Phone: [facility] 10-20-2023 10:41-0400 Body temperature 98.29 [degF] Reuben Muhammad MD Work Phone: [facility] 10-20-2023 10:41-0400 Body weight 77.56 kg Reuben Muhammad MD Work Phone: [facility] 10-20-2023 10:41-0400 Diastolic blood pressure 92 mm[Hg] Reuben Muhammad MD Work Phone: [facility] 10-20-2023 10:41-0400 Heart rate 72 /min Reuben Muhammad MD Work Phone: [facility] 10-20-2023 10:41-0400 Respiratory rate 14 /min Reuben Muhammad MD Work Phone: [facility] 10-20-2023 10:41-0400 SaO2% (BldA) [Mass fraction] 99 % Reuben Muhammad MD Work Phone: [facility] 10-20-2023 10:41-0400 Systolic blood pressure 142 mm[Hg] Reuben Muhammad MD Work Phone: [facility] 08-12-2023 09:31-0400 Body height 172.7 cm Evita Eric [employer] READER Work Phone: [facility] 08-12-2023 09:31-0400 Body mass index (BMI) [Ratio] 25.61 kg/m2 Evita Eric [employer] READER Work Phone: [facility] 08-12-2023 09:31-0400 Body weight 76.39 kg Evita Eric [employer] READER Work Phone: [facility] 08-12-2023 09:31-0400 Diastolic blood pressure 86 mm[Hg] Evita Eric [employer] READER Work Phone: [facility] 08-12-2023 09:31-0400 Heart rate 88 /min Evita Eric [employer] READER Work Phone: [facility] 08-12-2023 09:31-0400 Systolic blood pressure 125 mm[Hg] Evita Eric [employer] READER Work Phone: [facility] 05-01-2023 10:25-0400 Respiratory rate 16 /min Jessica Meyers Jr., DO Work Phone: [facility] 05-01-2023 07:37-0400 Body temperature 98.2 [degF] Jessica Meyers Jr., DO Work Phone: [facility] 05-01-2023 07:37-0400 Diastolic blood pressure 71 mm[Hg] Jessica Meyers Jr., DO Work Phone: [facility] 05-01-2023 07:37-0400 Heart rate 113 /min Jessica Meyers Jr., DO Work Phone: [facility] 05-01-2023 07:37-0400 SaO2% (BldA) [Mass fraction] 100 % Jessica Moreirapradeep Meadows, DO Work Phone: [facility] 05-01-2023 07:37-0400 Systolic blood pressure 113 mm[Hg] Jessica Gonzalesyvonne Meadows, DO Work Phone: [facility] 04-30-2023 08:21-0400 Body height 172.7 cm Jessica Gonzalesyvonne Meadows, DO Work Phone: [facility] 04-30-2023 08:21-0400 Body mass index (BMI) [Ratio] 26.15 kg/m2 Jessica Gonzalesyvonne Meadows, DO Work Phone: [facility] 04-30-2023 08:21-0400 Body weight 78 kg Jessica Gonzalesyvonne Meadows, DO Work Phone: [facility] 05-02-2022 09:44-0400 Body height 172.7 cm Bernabe Rouse MD Work Phone: [facility] 05-02-2022 09:44-0400 Body mass index (BMI) [Ratio] 26.61 kg/m2 Bernabe Rouse MD Work Phone: [facility] 05-02-2022 09:44-0400 Body weight 79.38 kg Bernabe Rouse MD Work Phone: [facility] 05-02-2022 09:44-0400 Diastolic blood pressure 92 mm[Hg] Bernabe Rouse MD Work Phone: [facility] 05-02-2022 09:44-0400 Heart rate 120 /min Bernabe Rouse MD Work Phone: [facility] 05-02-2022 09:44-0400 Systolic blood pressure 134 mm[Hg] Bernabe Rouse MD Work Phone: [facility] 04-09-2022 10:34-0500 Body height 172.7 cm Aaliyah Perez MD Work Phone: [facility] 04-09-2022 10:34-0500 Body mass index (BMI) [Ratio] 26.83 kg/m2 Aaliyah Perez MD Work Phone: [facility] 04-09-2022 10:34-0500 Body temperature 97.9 [degF] Aaliyah Perez MD Work Phone: [facility] 04-09-2022 10:34-0500 Body weight 80.05 kg Aaliyah Perez MD Work Phone: [facility] 04-09-2022 10:34-0500 Diastolic blood pressure 90 mm[Hg] Aaliyah Perez MD Work Phone: [facility] 04-09-2022 10:34-0500 Heart rate 88 /min Aaliyah Perez MD Work Phone: [facility] 04-09-2022 10:34-0500 Respiratory rate 14 /min Aaliyah Perez MD Work Phone: [facility] 04-09-2022 10:34-0500 SaO2% (BldA) [Mass fraction] 100 % Aaliyah Perez MD Work Phone: [facility] 04-09-2022 10:34-0500 Systolic blood pressure 144 mm[Hg] Aaliyah Perez MD Work Phone: [facility] 10-08-2021 14:34-0400 Body height 172.7 cm Bernabe Rouse MD Work Phone: [facility] 10-08-2021 14:34-0400 Body mass index (BMI) [Ratio] 25.85 kg/m2 Bernabe Rouse MD Work Phone: [facility] 10-08-2021 14:34-0400 Body weight 77.11 kg Bernabe Rouse MD Work Phone: [facility] 10-08-2021 14:34-0400 Diastolic blood pressure 96 mm[Hg] Bernabe Rouse MD Work Phone: [facility] 10-08-2021 14:34-0400 Heart rate 112 /min Bernabe Rouse MD Work Phone: [facility] 10-08-2021 14:34-0400 Systolic blood pressure 145 mm[Hg] Bernabe Rouse MD Work Phone: [facility] 04-17-2021 13:00-0500 Diastolic blood pressure 78 mm[Hg] Jose Roberto Dunaway MD Work Phone: [facility] 04-17-2021 13:00-0500 Heart rate 92 /min Jose Roberto Dunaway MD Work Phone: [facility] 04-17-2021 13:00-0500 Respiratory rate 17 /min Jose Roberto Dunaway MD Work Phone: [facility] 04-17-2021 13:00-0500 SaO2% (BldA) [Mass fraction] 98 % Jose Roberto Dunaway MD Work Phone: [facility] 04-17-2021 13:00-0500 Systolic blood pressure 116 mm[Hg] Jose Roberto Dunaway MD Work Phone: [facility] 04-17-2021 10:00-0500 Body temperature 98.1 [degF] Jose Roberto Dunaway MD Work Phone: [facility] 04-16-2021 11:39-0500 Body height 172.7 cm Jose Roberto Dunaway MD Work Phone: [facility] 04-16-2021 11:39-0500 Body mass index (BMI) [Ratio] 23.57 kg/m2 Jose Roberto Dunaway MD Work Phone: [facility] 04-16-2021 11:39-0500 Body weight 70.31 kg Jose Roberto Dunaway MD Work Phone: [facility] 03-28-2021 08:30-0500 Body mass index (BMI) [Ratio] 24.02 kg/m2 Bernabe Rouse MD Work Phone: [facility] 03-28-2021 08:30-0500 Body weight 71.67 kg Bernabe Rouse MD Work Phone: [facility] 03-28-2021 08:30-0500 Diastolic blood pressure 86 mm[Hg] Bernabe Rouse MD Work Phone: [facility] 03-28-2021 08:30-0500 Heart rate 85 /min Bernabe Rouse MD Work Phone: [facility] 03-28-2021 08:30-0500 Systolic blood pressure 132 mm[Hg] Bernabe Rouse MD Work Phone: [facility] 10-18-2020 09:49-0400 Body height 172.7 cm Alessia Crockett CNP Work Phone: [facility] 10-18-2020 09:49-0400 Body mass index (BMI) [Ratio] 24.78 kg/m2 Aelssia Crockett CNP Work Phone: [facility] 10-18-2020 09:49-0400 Body temperature 98.2 [degF] Alessia Crockett CNP Work Phone: [facility] 10-18-2020 09:49-0400 Body weight 73.94 kg Alessia Crockett CNP Work Phone: [facility] 10-18-2020 09:49-0400 Diastolic blood pressure 93 mm[Hg] Alessia Crockett CNP Work Phone: [facility] 10-18-2020 09:49-0400 Heart rate 84 /min Alessia Crockett CNP Work Phone: [facility] 10-18-2020 09:49-0400 Systolic blood pressure 136 mm[Hg] Alessia Crockett CNP Work Phone: [facility] 11-09-2019 16:36-0400 Body Temperature 98.2 [degF] Bernabe Rouse [facility] 11-09-2019 16:36-0400 BP Diastolic 78 mm[Hg] Bernabe Rouse [facility] 11-09-2019 16:36-0400 BP Systolic 123 mm[Hg] Bernabe Rouse [facility] 11-09-2019 16:36-0400 Pulse (Heart Rate) 102 /min Bernabe Rouse [facility] 11-09-2019 16:36-0400 Pulse Oximetry 100 % Bernabe Rouse [facility] 11-09-2019 16:36-0400 Respiratory Rate 16 /min Bernabe Rouse [facility] 11-09-2019 06:06-0400 BMI (Body Mass Index) 23.26 kg/m2 Bernabe Rouse [facility] 11-09-2019 06:06-0400 [facility] 11-09-2019 06:06-0400 Height 172.7 cm [facility] Encounters Encounter Date Encounter Type Care Provider Facility Start: 12-02-2023 End: 12-02-2023 ambulatory [facility] Start: 11-24-2023 End: 11-24-2023 ambulatory [facility] Start: 11-18-2023 End: 11-18-2023 [facility] Start: 11-13-2023 End: 11-13-2023 Postop follow up visit related to original px Bernabe Rouse MD Work Phone: [facility] Comment on above: Post-operative state (Primary Dx); Endometriosis determined by laparoscopy; Interstitial cystitis Start: 11-13-2023 End: 11-13-2023 ambulatory [facility] Start: 10-29-2023 End: 10-29-2023 ambulatory SANDRALEONIERosendo STELLADelores [facility] Start: 10-20-2023 End: 10-20-2023 Office outpatient visit 25 minutes John Yoder MD Work Phone: [facility] Preadmission Testing Comment on above: Endometriosis determ ined by laparoscopy (Primary Dx); Pre-op examination; Anxiety and depression; Bipolar affective disorder, remission status unspecified (HCC); Complication of anesthesia, initial encounter Start: 10-20-2023 End: 10-20-2023 Preprocedural examination done John Yoder MD Work Phone: [facility] Start: 10-20-2023 End: 10-24-2023 ambulatory [facility] Start: 10-20-2023 End: 10-24-2023 Encounter for other preprocedural examination [facility] Start: 10-20-2023 End: 10-20-2023 Clinical Support Selin Jang RN [facility] Comment on above: Pelvic pain in femal e (Primary Dx) Start: 09-12-2023 End: 09-12-2023 Phys/qhp telephone evaluation 21-30 min Bernabe Rouse MD Work Phone: [facility] Comment on above: Endometriosis determ ined by laparoscopy; Endometrioma of ovary; Interstitial cystitis Start: 09-12-2023 End: 09-12-2023 ambulatory ELENA COWAN [facility] Start: 08-19-2023 End: 08-23-2023 ambulatory EVITASIMON REYES [facility] Start: 08-12-2023 End: 08-12-2023 Office outpatient visit 25 minutes Evita Reyes [facility] Work Phone: [facility] Comment on above: Left ovarian cyst (P rimary Dx) Start: 08-12-2023 End: 08-12-2023 ambulatory [facility] Start: 08-01-2023 End: 08-01-2023 Orders Only Danni Lomax MA [facility] Comment on above: Lumbar radiculopathy (Primary Dx) Start: 08-01-2023 End: 08-01-2023 Office outpatient visit 15 minutes Jennifer Russ PA-C Work Phone: [facility] Comment on above: Lumbar radiculopathy , acute (Primary Dx) Start: 07-25-2023 End: 07-25-2023 ambulatory [facility] Start: 07-22-2023 End: 07-22-2023 ambulatory [facility] Start: 07-22-2023 End: 07-22-2023 ambulatory [facility] Start: 07-17-2023 Orders Only Yanelis Hahn MA [facility] Start: 07-16-2023 Orders Only Yanelis Hahn MA [facility] Comment on above: Lumbar radiculopathy (Primary Dx) Start: 07-14-2023 Orders Only Anabell Johansen RN [facility] Neuroscience Comment on above: Left hip pain (Prima ry Dx) Start: 07-09-2023 End: 07-09-2023 ambulatory ELENA COWAN [facility] Start: 07-09-2023 End: 07-09-2023 Postop follow up visit related to original px Glenys Cortés [employer] Work Phone: [facility] Comment on above: Lumbar radiculopathy (Primary Dx); Left hip pain Start: 06-11-2023 Orders Only Nicole Soto RN [facility] Neuroscience Start: 06-05-2023 End: 06-05-2023 Orders Only Yanelis Hahn MA [facility] Comment on above: Lumbar radiculopathy (Primary Dx) Start: 06-05-2023 End: 06-05-2023 Office outpatient visit 10 minutes Esmer Guzman [employer] Work Phone: [facility] Comment on above: S/P hysterectomy (Pr imary Dx); Endometriosis determined by laparoscopy; Constipation, unspecified constipation type Start: 06-05-2023 End: 06-05-2023 Postop follow up visit related to original px Jennifer Russ PA-C Work Phone: [facility] Comment on above: Lumbar radiculopathy (Primary Dx) Start: 04-30-2023 End: 05-01-2023 ambulatory JESSICA MEYERS JR. [facility] Start: 04-30-2023 End: 05-01-2023 Subsequent hospital visit by physician eJssica Meyers DO Work Phone: [facility] Surgical Short Stay Unit Start: 04-11-2023 Admission to [facility] Izabella George MA [facility] Comment on above: Lumbar radiculopathy (Primary Dx) Start: 04-08-2023 End: 04-08-2023 Office outpatient new 45 minutes Elena Cowan DO Work Phone: [facility] Comment on above: Degeneration of lumb ar or lumbosacral intervertebral disc (Primary Dx) Start: 04-08-2023 End: 04-08-2023 ambulatory JESSICA MEYERS JR. [facility] Start: 04-07-2023 Orders Only Calli camp PA-C Work Phone: [facility] Comment on above: Degenerative disc di sease, lumbar (Primary Dx) Start: 03-25-2023 ambulatory JESSICA QUISPE JR. [facility] Start: 02-28-2023 End: 02-28-2023 ambulatory PROVIDER NOT IN SYSTEM [facility] Start: 02-25-2023 Transcribe Orders Elena Cowan DO Work Phone: [facility] Comment on above: Lumbar radiculopathy (Primary Dx); Herniated lumbar intervertebral disc Start: 05-02-2022 End: 05-02-2022 Postop follow up visit related to original px Bernabe Rouse MD Work Phone: [facility] Comment on above: Postop check (Primar y Dx); Endometriosis determined by laparoscopy; Interstitial cystitis Start: 04-09-2022 End: 04-09-2022 Clinical Support Selin Jang RN [facility] Comment on above: Pelvic pain in femal e (Primary Dx) Start: 04-09-2022 End: 04-09-2022 Office consultation new/estab patient 60 min Bernabe Rouse MD Work Phone: [facility] Preadmission Testing Comment on above: Preop examination (P rimary Dx); Endometriosis; Preop cardiovascular exam; Elevated blood pressure reading without diagnosis of hypertension; Gastroesophageal reflux disease without esophagitis; Interstitial cystitis; History of lumbar laminectomy Start: 04-09-2022 End: 04-09-2022 Patient encounter status Bernabe Rouse MD Work Phone: [facility] Preadmission Testing Start: 04-09-2022 End: 04-09-2022 Preprocedural examination done Bernabe Rouse MD Work Phone: [facility] Preadmission Testing Start: 10-10-2021 Refill India Fitzpatrick RN [facility] Start: 10-08-2021 End: 10-08-2021 Office outpatient visit 25 minutes Bernabe Rouse MD Work Phone: [facility] Gynecology Comment on above: Endometriosis Start: 07-02-2021 End: 07-02-2021 Patient encounter procedure Bernabe Rouse MD Work Phone: [facility] Gynecology Comment on above: Pelvic pain in femal e (Primary Dx); Cyst of ovary, unspecified laterality Start: 04-27-2021 Refill Bernabe Rouse MD Work Phone: [facility] Gy[facility] Start: 04-17-2021 End: 04-17-2021 [facility] Start: 04-17-2021 End: 04-17-2021 Subsequent hospital visit by physician Jose Roberto Dunaway MD Work Phone: [email or web address] Start: 04-17-2021 End: 04-17-2021 ambulatory ELENA [facility] Start: 04-17-2021 End: 04-17-2021 Subsequent hospital visit by physician Jluis Neffid19 Pat Screening Schedule [facility] PRE ADMIT Comment on above: Arrived Start: 04-02-2021 End: 04-02-2021 Patient encounter procedure Bernabe Rouse MD Work Phone: [facility] Comment on above: Pelvic pain in femal e (Primary Dx) Start: 03-28-2021 End: 03-28-2021 Office outpatient visit 25 minutes Bernabe Rouse MD Work Phone: [facility] Comment on above: Endometriosis Start: 02-21-2021 End: 02-21-2021 Subsequent hospital visit by physician Theresa [facility] Nelli Work Phone: Radiology Comment on above: Pain of right hand [ M79.641] Start: 10-18-2020 End: 10-18-2020 Patient encounter procedure Bernabe Rouse MD Work Phone: [facility] Comment on above: Endometriosis (Prima ry Dx); Pelvic pain in female Start: 10-18-2020 End: 10-18-2020 Office outpatient visit 15 minutes Alessia Crockett CNP Work Phone: [facility] Comment on above: Endometriosis (Prima ry Dx) Start: 02-23-2020 End: 02-23-2020 Phys/qhp telephone evaluation 5-10 min Bernabe Rouse Work Phone: [facility] Comment on above: Endometriosis Start: 11-09-2019 End: 11-09-2019 Subsequent hospital visit by physician Bernabe Rouse Work Phone: [facility] Short Stay [facility] Start: 05-05-2018 End: 05-05-2018 Patient encounter procedure [facility] Start: 04-28-2018 Encounter for other preprocedural examination [facility] Start: 04-27-2018 End: 04-28-2018 Patient encounter procedure [facility] Procedures Date Procedure Procedure Detail Performing Clinician [...] Work Phone: Start: 04-30-2023 Glucose measurement Jessica Myeers DO Work Phone: Start: 04-16-2022 H/O: hysterectomy S/P hysterectomy Bernabe Rouse MD Work Phone: Start: 07-02-2021 Us transvaginal Bernabe Rouse MD Work Phone: Start: 04-17-2021 COVID-19, RAPID Marcus Horne MD Work Phone: Start: 04-02-2021 Us transvaginal Bernabe Rouse MD Work Phone: Start: 02-21-2021 Radex hand minimum 3 views 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 DETASSELER.[employer] READER Work Phone: Start: 10-18-2020 Us transvaginvic Rouse [...] H/O: hysterectomy S/P hysterectomy Cather hima Bentonolga [employer] READER Work Phone: Plan of Treatment Date Care Activity Detail Author Start: 02-13-2024 End: 02-13-2024 Patient encounter procedure 02/13/2024 9:50 AM EST Office Visit [facility] [address] [place] [address] Evita Reyes, G[employer] READER [address] [place] [facility] [address] [facility] Start: 12-02-2023 End: 12-02-2023 Patient encounter procedure 12/02/2023 11:15 AM EDT Office Visit [facility] [address] [place] [address] Jessica Meyers Jr., DO [address] [place] [address] [facility] Start: 11-24-2023 End: 11-24-2023 Patient encounter procedure [facility] Start: 11-18-2023 End: 11-18-2023 Patient encounter procedure 11/18/2023 12:00 PM EDT Appointment [facility] CT Scan [address] [place] [address] Elena Cowan, [address] [facility] [place] [address] [facility] [address] Scan Start: 11-13-2023 End: 11-13-2023 Patient encounter procedure [facility] Start: 10-29-2023 End: 10-29-2023 Admission to same day surgery center 10/29/2023 7:10 AM EDT - 10/29/2023 9:50 AM EDT Surgery [facility] [address] [place] [address] Bernabe Rouse MD [address] [place] [address] ROBOTIC ASSISTED LAPAROSCOPIC EXCISION OF ENDOMETRIOSIS, LEFT OVARIAN CYSTECTOMY, POSSIBLE OOPHORECTOMY, LYSIS OF ADHESIONS, [facility] Comment on above: ROBOTIC ASSISTED LAP AROSCOPIC EXCISION OF ENDOMETRIOSIS, LEFT OVARIAN CYSTECTOMY, POSSIBLE OOPHORECTOMY, LYSIS OF ADHESIONS, Start: 10-29-2023 End: 10-29-2023 Laps abd prtm&omentum dx w/wo spec br/wa spx [facility] Start: 10-29-2023 Subsequent hospital visit by physician 10/29/2023 7:10 AM EDT Hospital Encounter [facility] [address] [place] [address] Bernabe Rouse MD [address] [place] [address] [facility] Start: 10-20-2023 End: 10-20-2023 Office outpatient visit 25 minutes 10/20/2023 1:30 PM EDT Office Visit [facility] Preadmission Testing [address] [facility] [address] [place] [address] John Yoder MD [facility] [address] [place] [address] Reuben Muhammad MD [address] [facility] [address] [place] [address] Endometriosis determined by laparoscopy (Primary Dx); Pre-op examination; Anxiety and depression; Bipolar affective disorder, remission status unspecified (HCC); Complication of anesthesia, initial encounter Discharge Disposition: Home [facility] Preadmission Testing Comment on above: Endometriosis determ ined by laparoscopy (Primary Dx); Pre-op examination; Anxiety and depression; Bipolar affective disorder, remission status unspecified (HCC); Complication of anesthesia, initial encounter Start: 10-20-2023 End: 10-20-2023 Patient encounter procedure 10/20/2023 1:30 PM EDT Office Visit [facility] Preadmission Testing [address] [facility] [address] [place] [address] [facility] Preadmission Testing Start: 10-20-2023 End: 10-20-2023 Clinical Support 10/20/2023 9:20 AM EDT Clinical Support [facility] [address] [facility] [place] [address] [address] Bailiff Or Sheriff [place], Vi [facility] Start: 10-12-2023 Covid-19 Vaccine ( season) Covid-19 Vaccine ( season) [facility] Start: 10-12-2023 COVID-19 Vaccine ( season) COVID-19 Vaccine ( season) [facility] Start: 10-12-2023 Influenza vaccination [facility] Start: 10-01-2023 End: 10-01-2023 Patient encounter procedure 10/01/2023 8:00 AM EDT Office Visit [facility] [address] Medical Office Building, [address] [place] [address] Jennifer Russ PA-C [address] [place] [address] Delvin Nguyen MD [facility] [address] [facility] [address] [place] [address] [facility] Start: 08-22-2023 End: 08-22-2023 Patient encounter procedure 08/22/2023 2:00 PM EDT Office Visit [facility] [address] [place] [address] Rachel Robertson MD [address] [place] [address] [facility] Start: 08-01-2023 End: 08-01-2023 Follow-up encounter 08/01/2023 8:30 AM EDT Follow-Up [facility] [address] [place] [address] Jennifer Russ PA-C [address] [place] [address] [facility] Start: 07-25-2023 End: 07-25-2023 Patient encounter procedure 07/25/2023 4:45 PM EDT Appointment [facility] [address] [place] [address] Glenys Cortés, GAS METER READER [address] [place] [address] [facility] Start: 07-09-2023 End: 07-09-2023 Follow-up encounter 07/09/2023 3:00 PM EDT Follow-Up [facility] [address] [place] [address] Marques Kwok, BORA [address] [place] [address] [facility] Start: 06-05-2023 End: 06-05-2023 Follow-up encounter 06/05/2023 9:15 AM EDT Follow-Up [facility] [address] [address] [place] [id number] Jessica Meyers Jr., DO [address] [place] [address] [facility], Neuroscience Start: 04-30-2023 Subsequent hospital visit by physician 04/30/2023 Hospital Encounter [facility] [address] [place] [place] [address] Jessica Meyers Jr., DO [address] [place] [address] [facility] Start: 11-29-2022 Tetanus vaccination Tetanus: Every 1 0yrs [facility] Start: 10-11-2022 COVID-19 Vaccine ( season) COVID-19 Vaccine ( season) [facility] Start: 10-11-2022 Influenza vaccination Sequenti al Influenza Vaccine (#1) [facility] Start: 08-08-2022 End: 08-08-2022 Patient encounter procedure 08/08/2022 Office Visit Gynecology Esmer Guzman, GAS METER READER [address] [place] [address] [facility] Gy[facility] Start: 05-02-2022 End: 05-02-2022 Patient encounter procedure 05/02/2022 Office Visit Gynecology Bernabe Rouse MD [address] [place] [address] [facility] Gynecology Start: 04-16-2022 End: 04-16-2022 Admission to same day surgery center 04/16/2022 Surgery Bernabe Rouse MD [address] [address] ROBOTIC ASSISTED LAPAROSCOPIC HYSTERECTOMY, EXCISION OF ENDOMETRIOSIS MODERATE ERAS PROTOCOL GLYCEMIC CONTROL PERCHER [facility] Comment on above: ROBOTIC ASSISTED LAP AROSCOPIC HYSTERECTOMY, EXCISION OF ENDOMETRIOSIS MODERATE ERAS PROTOCOL GLYCEMIC CONTROL PERCHER Start: 04-16-2022 End: 04-16-2022 HYSTERECTOMY TOTAL ROBOTIC XI HYSTERECTOMY TOTAL ROBOTIC XI Endometriosis 04/16/2022 11:20 AM EST [facility] Start: 04-16-2022 Subsequent hospital visit by physician 04/16/2022 Hospital Encounter Bernabe Rouse MD [address] [place] [address] [facility] Start: 10-11-2021 Influenza vaccination [facility] Start: 10-08-2021 End: 10-08-2021 Patient encounter procedure 10/08/2021 Office Visit Gynecology Bernabe Rouse MD [address] [place] [address] [facility] Gynecology Start: 07-02-2021 End: 07-02-2021 Patient encounter procedure 07/02/2021 Office Visit Gynecology Bernabe Rouse MD [address] [place] [address] [facility] Gynecology Start: 04-25-2021 End: 04-25-2021 Patient encounter procedure 04/25/2021 Office Visit Otolaryngology Jose Roberto Dunaway MD [address] [place] [address] [facility] Start: 04-17-2021 End: 04-17-2021 Tonsillectomy primary/secondary age 10/> TONSILLECTOMY chronic tonsilitis, dysphagia 04/17/2021 8:54 AM EST [facility] Start: 04-02-2021 End: 04-02-2021 Patient encounter procedure 04/02/2021 Office Visit Gynecology [facility] Gyne[facility] Start: 10-11-2020 Influenza vaccination [facility] Start: 06-15-2020 COVID-19 Vaccine (2 - Pfizer 2-dose series) COVID-19 Vaccine (2 - Pfizer 2-dose series) [facility] Start: 06-15-2020 COVID-19 Vaccine (2 - Pfizer 3-dose series) COVID-19 Vaccine (2 - Pfizer 3-dose series) [facility] Start: 06-15-2020 COVID-19 Vaccine (2 - Pfizer series) COVID-19 Vaccine (2 - Pfizer series) [facility] Start: 04-24-2020 End: 04-24-2020 Office Visit 04/24/2020 Office Visit Gynecology Bernabe Rouse MD [address] [place] [address] [phone] [facility] Gynecology Start: 11-24-2019 End: 11-24-2019 Follow-Up 11/24/2019 Follow-Up Gynecology Bernabe Rouse MD [address] [place] [address] [phone] [facility] Gynecology Start: 10-12-2019 Influenza vaccinatio n given Sequential Influenza Vaccine (#1) [facility] Start: 2018 Screening for malign ant neoplasm of cervix [facility] Start: 2009 Screening for malign ant neoplasm of cervix [facility] Start: 11-05-2007 DTaP/Tdap/Td vaccine (1 - Tdap) DTaP/Tdap/Td vaccine (1 - Tdap) [facility] Start: 11-05-2007 Hepatitis B Vaccine (1 of 3 - 19+ 3-dose series) Hepatitis B Vaccine (1 of 3 - 19+ 3-dose series) [facility] Start: 11-05-2007 Urine microalbumin profile DTaP,Tdap,Td Vaccine (1 - Tdap) [facility] Start: 2006 Anxiety Screening Anxiety Screening [facility] Start: 2006 Depression Screening Depression Scre ening [facility] Start: 2006 Hepatitis C antibody , confirmatory test Hepatitis C Screening [facility] Start: 2006 Hepatitis C screening Hepatitis C Sc [facility] Start: 2006 HIV screening HIV Screening [facility] Start: 11-05-2003 HIV screening [facility] Start: 2000 Adolescent depressio n screening assessment Depression Screening (PHQ9) [facility] Start: 2000 Depression Screen Depression Screen [facility] Start: 2000 Depression screening using PHQ-9 (Patient Health Questionnaire 9) score [facility] Start: 11-05-1991 History and physical examination, annual for health maintenance Wellness Visit [facility] Start: 1989 Varicella vaccine (1 of 2 - 2-dose childhood series) Varicella vaccine (1 of 2 - 2-dose childhood series) [facility] Start: 1988 Hepatitis C screening Hepatitis C [facility] Start: 1988 Screening for malign ant neoplasm of cervix Pap Smear [facility] Start: 1988 Tetanus vaccination Tetanus: Every 1 0yrs [facility] End: 08-11-2024 AFP TUMOR MARKER AFP tumor marker Lab Routine Left ovarian cyst 1 Occurrences starting 08/12/2023 until 08/11/2024 [facility] Comment on above: 1 Occurrences starti ng 08/12/2023 until 08/11/2024 Blood type and Indir ect antibody screen panel - Blood Type and Screen Blood Bank Routine Pre-op examination 10/20/2023 11:47 AM EDT [facility] Work Phone: End: 08-11-2024 CA 125 measurement CA 125 Lab Routine Left ovarian cyst 1 Occurrences starting 08/12/2023 until 08/11/2024 [facility] Comment on above: 1 Occurrences starti ng 08/12/2023 until 08/11/2024 End: 08-11-2024 Cancer antigen 19-9 measurement CA 19-9 Lab Routine Left ovarian cyst 1 Occurrences starting 08/12/2023 until 08/11/2024 [facility] Work Phone: Comment on above: 1 Occurrences starti ng 08/12/2023 until 08/11/2024 CBC panel - Blood by Automated count CBC Lab Routine Pre-op examination 10/20/2023 11:47 AM EDT [facility] Continuous pulse oximetry Pulse oximetry, continuous Respiratory Care Routine Every 4hr until discontinued starting 04/17/2021 [employer] Phone: Comment on above: Every 4hr until disc ontinued starting 04/17/2021 DISCECTOMY LUMBAR SINGLE LEVEL DISCECTOMY LUMBAR SINGLE LEVEL Lumbar radiculopathy [facility] HYSTERECTOMY TOTAL ROBOTIC XI HYSTERECTOMY TOTAL ROBOTIC XI Endometriosis [facility] End: 07-08-2024 MR Lumbar spine WO contrast MR Lumbar Spine Without Contrast Imaging Routine Lumbar radiculopathy 1 Occurrences starting 07/09/2023 until 07/08/2024 [facility] Comment on above: 1 Occurrences starti ng 07/09/2023 until 07/08/2024 Oxygen therapy [[facility] Data Set] Initiate Oxygen Therapy Protocol Respiratory Care Routine Daily until discontinued starting 04/17/2021 [employer] Phone: Comment on above: Daily until disconti nued starting 04/17/2021 Procedure on tissue specimen [facility] Comment on above: Release Upon Orderin g for 1 Occurrences starting 11/09/2019, 1 completed Surgical Pathology Surgical Path ology Lab Routine Release Upon Ordering for 1 Occurrences starting 04/17/2021 [employer] Phone: Comment on above: Release Upon Orderin g for 1 Occurrences starting 04/17/2021 End: 04-17-2021 SURGICAL PATHOLOGY REPORT SURGICAL PATHOLOGY REPORT Lab Routine Once for 1 Occurrences starting 04/17/2021 until 04/17/2021 [facility] Work Phone: Comment on above: Once for 1 Occurrenc es starting 04/17/2021 until 04/17/2021 End: 07-13-2024 XR Hip - left 2 Views XR Hip Left 2-3 Views (Routine) Imaging Routine Left hip pain 1 Occurrences starting 07/14/2023 until 07/13/2024 [facility] Work Phone: Comment on above: 1 Occurrences starti ng 07/14/2023 until 07/13/2024 End: 07-08-2024 XR Hip - left Views XR Hip Left 4+ Views Imaging Routine Lumbar radiculopathy 1 Occurrences starting 07/09/2023 until 07/08/2024 [facility] Work Phone: Comment on above: 1 Occurrences starti ng 07/09/2023 until 07/08/2024 End: 04-07-2024 XR Lumbar spine 2 or 3 Views XR Lumbar Spine Flex / Ext 2-3 Views Imaging Routine Degenerative disc disease, lumbar 1 Occurrences starting 04/07/2023 until 04/07/2024 [facility] Work Phone: Comment on above: 1 Occurrences starti ng 04/07/2023 until 04/07/2024 Immunizations Immunization Date Immunization Notes Care Provider Mariano anna 05-25-2020 Pfizer SARS-CoV-2 Vaccination Bernabe Rouse MD Work Phone: [facility] 10-22-2018 influenza virus vacc ine, unspecified formulation Yanelis Hahn MA [facility] Payers Date Payer Category Payer Unknown [id number] 2021 Unknown [id number] 2020 Unknown [id number] 2019 Unknown ESTRELLA GILL/PREF/HMO/PPO [id number] 2019-Present [id number] [id number] 2019 Unknown [id number] 1988 Unknown [id number] 2.16.840.1.675858.3.579.2.598 1988 Unknown [id number] 2.16.840.1.418458.3.579.2.598 1988 Unknown [id number] 2.16.840.1.081147.3.579.2.174 1988 Unknown [id number] 2.16.840.1.424804.3.579.2.174 1988 Unknown [id number] 2.16.840.1.542628.3.579.2.902 1988 Unknown [id number] 2.16.840.1.959633.3.579.2.902 1988 Unknown [id number] 2.16.840.1.189708.3.579.2.902 1988 Unknown [id number] 2.16.840.1.266592.3.579.2.900 1988 Unknown [id number] 2.16.840.1.464650.3.579.2.900 1988 Unknown [id number] 2.16.840.1.809903.3.579.2.900 1988 Unknown [id number] 2.16.840.1.909635.3.579.2.900 1988 Unknown [id number] 2.16.840.1.856908.3.579.2.900 1988 Unknown [id number] 2.16.840.1.072255.3.579.2.903 1988 Unknown [id number] 2.16.840.1.049757.3.579.2.903 1988 Unknown [id number] 2.16.840.1.792990.3.579.2.903 1988 Unknown [id number] 2.16.840.1.582517.3.579.2.903 1988 Unknown [id number] 2.16.840.1.441605.3.579.2.903 1988 Unknown [id number] 2.16.840.1.867309.3.579.2.903 1988 Unknown [id number] 2.16.840.1.861176.3.579.2.903 1988 Unknown [id number] 2.16.840.1.657774.3.579.2.90 1988 Unknown [id number] 2.16.840.1.101234.3.579.2.903 1988 Unknown [id number] 2.16.840.1.636680.3.579.2.903 1988 Unknown [id number] 2.16.840.1.114057.3.579.2.903 1988 Unknown [id number] 2.16.840.1.633604.3.579.2.903 1988 Unknown [id number] 2.16.840.1.208668.3.579.2.903 1988 Unknown [id number] 2.16.840.1.364264.3.579.2.903 1988 Unknown [id number] 2.16.840.1.594969.3.579.2.903 1959 Self-pay [id number] Unknown [id number] [id number] [id number] Social History Date Type Detail Facility Start: 11-09-2019 End: 10-20-2023 Tobacco smoking status WYIS Never smoker [facility] Start: 11-09-2019 End: 10-20-2023 Tobacco use and exposure Never used [facility] Start: 11-09-2019 End: 11-13-2023 Alcohol intake Ex-drinker (finding) [facility] Start: 1990 Sex Assigned At Not on file [facility] Start: 02-25-2021 End: 05-02-2022 Exposure to SARS-CoV-2 (event) [facility] Start: 09-13-2019 End: 11-13-2023 Cigarette pack-[facility] Start: 04-09-2022 End: 09-28-2023 Alcohol intake Current drinker of alcohol (finding) [facility] Start: 04-09-2022 Alcohol Comment [facility] Start: 05-04-2022 End: 11-13-2023 Tobacco use panel [facility] Start: 09-13-2019 Gender identity Identifies as female gender (finding) [facility] Start: 09-13-2019 Sexual orientation Heterosexual (fin rey) [facility] Start: 10-20-2023 Tobacco Comment None [facility] Start: 10-20-2023 Alcohol Comment Only on Holidays [facility] Medical Equipment Procedure Code Equipment Code Equipment Origin al Text Equipment Identifier Dates Cath 5in Expansi on On-Q Silversoaker - [id number][facility] Start: 11-09-2019 Comment on above: Description: OR Meron ge ONLY Pump 100 X 2ml/H r Ball 2 Day Ext Release On-Q - [id number][facility] Start: 11-09-2019 Comment on above: Description: OR Meron ge ONLY Kit 10ml Tisseel Frozen W/ Prima Syringe - [id number][facility] Start: 11-09-2019 Comment on above: Description: 10ml us ed Barrier 5 X 6in Adhesion Tc 7 Interceed - [id number] Start: 11-09-2019 Barrier 5 X 6in Adhesion Tc 7 Interceed - [id number] ()[id number] 761, 1124275[facility] FDA Start: 11-09-2019 Barrier 5 X 6in Adhesion Tc 7 Interceed - [id number] ()[id number] 441, [id number] FDA Start: 11-09-2019 Cath 5in Expansi on On-Q Silversoaker - [id number] Start: 04-16-2022 Barrier 5 X 6in Adhesion Tc 7 Interceed - [id number] ()[id number] 841, [id number] FDA Start: 04-16-2022 Pump 100 X 2ml/H r Ball 2 Day Ext Release On-Q - [id number] Start: 04-16-2022 Sealant 10ml Hemostatic Matrix Fast Prep Floseal W/Recothrom - [id number] ()[id number] 1215, 1974194[facility] FDA Start: 04-30-2023 Hemostat 8 X 12. 5cm X 2mm Surgifoam Gelatin Sponge Cs/6 - [id number] ()[id number] 78, 1974196[facility] FDA Start: 04-30-2023 Cath 5in Expansi on On-Q Silversoaker - [id number] ()[id number], [id number]_imp, 6890_[facility] FDA Start: 10-29-2023 Barrier 5 X 6in Adhesion Tc 7 Interceed - [id number] ()[id number] C3, [id number]_imp FDA Start: 10-29-2023 Pump 600ml Dual On-Q Cggaqh-P-Njku - [id number] Start: 10-29-2023 Hemostat 3g Powd er Absorbable Surgicel - [id number] Start: 10-29-2023 Clinical Notes 07-11-2020 to 12-02-2023 Bernabe Rouse MD - 11/22/2023 9:44 PM Bernabe Phillips MD - 11/13/2023 9:19 AM EDTAssessment & Plan Note - Bernabe Rouse MD - 11/13/2023 9:37 AM EDT Note Date & Type Note Facility 12-02-2023 Note Neurosurgical Establ ished LIVE Visit [facility] 12/02/23 Dr. Jessica Meyers DO FACOS [address], [address] [place] [id number] [phone] Patient: Caroline Guillen, : 1990, Physicians: Elena [...] concerns. If I or anyone else at [facility] can be of further service to you or your staff, please call on us. Cordially, Jessica Meyers DO, [facility]ACOS AUTHENTICATED BY JESSICA MEYERS JR., ON 12/02/2023 12:53:02 [facility] 11-24-2023 Note [facility] - Neurology [address] [place] [address] 2nd [place] [address] Nerve Conduction & EMG Report Patient: Caroline [...] Neurophysiology, Neurology, Vascular Neurology and Sleep Medicine [place], [place] [phone] Motor NCS Nerve / Sites Muscle Latency [...] AUTHENTICATED BY DELVIN NGUYEN, ON 11/24/2023 08:57:34 [facility] 11-22-2023 History of Present illness [...] on starting Elmiron. Counseled on seeing an assistant sales director/auto body repairer fiberglass for yearly visual exams Relevant Medications pentosan polysulfate (Elmiron) 100 mg capsule Other Visit Diagnoses Post-operative state - Primary Relevant Orders Urine Aerobic Culture Urinalysis Return in about 3 months (around 02/13/2024) for with an JUNO. Bernabe Rouse MD documented in this encounter [facility] 11-22-2023 Note Notify the patient t hat her urine culture was negative for a urinary tract infection. AUTHENTICATED BY BERNABE ROUSE, ON 11/22/2023 21:44:00 [facility] 11-13-2023 Evaluation + Plan note Associated [...] concerns arise. All questions answered to satisfaction. [facility] 11-13-2023 Miscellaneous Notes Associated Problem(s): Endometriosis determined [...] on starting Elmiron. Counseled on seeing an assistant sales director/auto body repairer fiberglass for yearly visual exams documented in this encounter [facility] 11-13-2023 Evaluation + Plan note Associated Problem(s): [...] on starting Elmiron. Counseled on seeing an assistant sales director/auto body repairer fiberglass for yearly visual exams [facility] 11-13-2023 Note POST-OPERATIVE VISIT Surgery: Robotic Assisted [...] histories have been reviewed and updated in [facility] charting. Physical Exam: Physical Exam Constitutional: Appearance: [...] on starting Elmiron. Counseled on seeing an assistant sales director/auto body repairer fiberglass for yearly visual exams Relevant Medications pentosan polysulfate (Elmiron) 100 mg capsule Other Visit Diagnoses Post-operative state - Primary Relevant Orders Urine Aerobic Culture Urinalysis Return in about 3 months (around 02/13/2024) for with an JUNO. Bernabe Rouse MD AUTHENTICATED BY BERNABE ROUSE, ON 11/24/2023 02:50:25 [facility] 10-29-2023 Note Please notify Caroline Guillen that her pathology results were consistent with ovary affected by ovarian torsion and scar tissue with endometriosis. AUTHENTICATED BY BERNABE ROUSE, ON 11/01/2023 19:28:16 [facility] 10-29-2023 Note GYNECOLOGY BRIEF POS T-OP NOTE Patient Name: Caroline Guillen MR #: [id number] ASSESSMENT AND PLAN: * S/P robot-assisted surgical [...] PM AUTHENTICATED BY LAURA FAIRCHILD 10/29/2023 14:29:42 [facility] 10-20-2023 History and physical note Assessment and Plan 1. Endometriosis determined by laparoscopy Primary management per SPOT MACHINE OPERATOR team. Patient provided instructions on preoperative management [...] acceptable cardiac risk based on the 2014 [employer] (ACC/AHA) guidelines on Perioperative Cardiovascular Evaluation and Management of Patients Undergoing Noncardiac Surgery. Deep vein thrombosis prophylaxis deferred to surgical service, recommend 2016 [employer] of Chest Physician Guidelines. Apfel score [...] Portions of this note were taken using [employer] dictation system. There may be unintended errors/omissions [...] Date Anxiety Arthritis Back pain Bipolar disorder ([facility]) April 2023 Bladder problem 2019 Interstitial Cystitis Chronic pain disorder 2018 Depression Endometriosis Fibromyalgia, primary GERD (gastroesophageal reflux disease) Headache IC (interstitial cystitis) pain on urination at times or if waits too long to urinate Neck pain Overactive bladder 2009 Patient had no falls in past year Peripheral neuropathy left fingers, left great toe and lower leg Psychiatric disorder Psychosis ([facility]) 02-24-2021 Temporary Caused by Dexamethasone Past Medical History Pertinent Negatives: Diagnosis Date Noted Alcoholism ([facility]) 04/25/2023 Anemia 04/25/2023 Arrhythmia 04/25/2023 Asthma 04/25/2023 Bleeding disorder ([facility]) 04/25/2023 Cancer ([facility]) 04/25/2023 Cataract 04/25/2023 CHF (congestive heart failure) ([facility]) 04/25/2023 Chronic kidney disease (CKD) 04/25/2023 Clostridium difficile infection 11/09/2019 Complication of anesthesia 11/09/2019 COPD (chronic obstructive pulmonary disease) ([facility]) 04/25/2023 Coronary artery disease 04/25/2023 Crohn's disease ([facility]) 04/25/2023 Deep vein thrombosis ([facility]) 04/25/2023 Dementia ([facility]) 04/25/2023 Dermatitis 04/25/2023 Diabetes mellitus type I ([facility]) 04/25/2023 Diabetes mellitus, type 2 ([facility]) 11/09/2019 Diverticulosis 04/25/2023 Edema 04/25/2023 Emphysema of lung ([facility]) 04/25/2023 ESBL (extended spectrum beta-lactamase) producing [...] (HCC) 04/25/2023 Rheumatoid arthritis (HCC) 04/25/2023 Seizures ([facility]) 04/25/2023 Sleep apnea, obstructive 11/09/2019 Stroke ([facility]) 04/25/2023 TIA (transient ischemic attack) 04/25/2023 Past Surgical History: Procedure Laterality Date APPENDECTOMY 10/2019 BACK SURGERY April 30, 2023 Hemilaminectomy foraminotomy HYSTERECTOMY (CERVIX REMOVED) 04/16/2022 HYSTERECTOMY TOTAL ROBOTIC XI N/A 04/16/2022 Procedure: ROBOTIC ASSISTED LAPAROSCOPIC HYSTERECTOMY, EXCISION OF ENDOMETRIOSIS, LYSIS OF ADHESIONS; Surgeon: Bernabe Rouse MD; Location: [facility] Main OR; Service: COMPRESSOR SERVICE TECHNICIAN-Robotics LAMINECTOMY 05/05/2018 L4-L5 LAMINECTOMY DISC LUMBAR SINGLE LEVEL Left 04/30/2023 Procedure: Redo Left Lumbar Five-Six Discectomy/Foraminotomy; Surgeon: Jessica Meyers Jr. DO; Location: [facility] NEURO OR; Service: Neurological ORTHOPEDIC SURGERY May 05, 2018 Discectomy of L4-L5 PELVISCOPY ROBOTIC XI N/A 11/09/2019 Procedure: ROBOTIC ASSISTED LAPAROSCOPIC EXCISION OF ENDOMETRIOSIS, BILATERAL SALPINGECTOMY, BILATERAL URETEROLYSIS, LEFT OVARIAN CYSTECTOMY, BILATERAL OVARIAN SUSPENSION, APPENDECTOMY CYSTOSCOPY WITH HYDRODISTENTION, ERAS PROTOCOL; Surgeon: Bernabe Rouse MD; Location: [facility] Main OR; Service: OBGYN TONSILLECTOMY 04/17/2021 WISDOM [...] Shortness Of Breath Itching from Chest to [place] Prozac [Fluoxetine] Shortness Of Breath Panicky, Shaky, Chest Tightening Risperidone Shortness Of Breath Itching from Chest to [place] Cymbalta [Duloxetine] Other (See Comments) Migraines, severe disorientation and dizziness Dexamethasone (Pf) Other (See Comments) Psychosis Gabapentin Other (See Comments) Suicidal Thoughts [place] Carbonate Other (See Comments) Blood Sugar increase [...] Impression Negative radiographs of the left hip. [employer]ATH[employer] Workstation ID: [id number] [facility] 10-20-2023 History and physical note Assessment and Plan 1. Endometriosis determined by laparoscopy Primary management per SPOT MACHINE OPERATOR team. Patient provided instructions on preoperative management [...] acceptable cardiac risk based on the 2014 [employer] (ACC/AHA) guidelines on Perioperative Cardiovascular Evaluation and Management of Patients Undergoing Noncardiac Surgery. Deep vein thrombosis prophylaxis deferred to surgical service, recommend 2016 [employer] of [employer] Physician Guidelines. Apfel score [...] Portions of this note were taken using [employer] dictation system. There may be unintended errors/omissions [...] Date Anxiety Arthritis Back pain Bipolar disorder ([facility]) April 2023 Bladder problem 2019 Interstitial Cystitis Chronic pain disorder 2018 Depression Endometriosis Fibromyalgia, primary GERD (gastroesophageal reflux disease) Headache IC (interstitial cystitis) pain on urination at times or if waits too long to urinate Neck pain Overactive bladder 2009 Patient had no falls in past year Peripheral neuropathy left fingers, left great toe and lower leg Psychiatric disorder Psychosis ([facility]) 02-24-2021 Temporary Caused by Dexamethasone Past Medical History Pertinent Negatives: Diagnosis Date Noted Alcoholism ([facility]) 04/25/2023 Anemia 04/25/2023 Arrhythmia 04/25/2023 Asthma 04/25/2023 Bleeding disorder ([facility]) 04/25/2023 Cancer ([facility]) 04/25/2023 Cataract 04/25/2023 CHF (congestive heart failure) ([facility]) 04/25/2023 Chronic kidney disease (CKD) 04/25/2023 Clostridium difficile infection 11/09/2019 Complication of anesthesia 11/09/2019 COPD (chronic obstructive pulmonary disease) ([facility]) 04/25/2023 Coronary artery disease 04/25/2023 Crohn's disease ([facility]) 04/25/2023 Deep vein thrombosis ([facility]) 04/25/2023 Dementia ([facility]) 04/25/2023 Dermatitis 04/25/2023 Diabetes mellitus type I ([facility]) 04/25/2023 Diabetes mellitus, type 2 ([facility]) 11/09/2019 Diverticulosis 04/25/2023 Edema 04/25/2023 Emphysema of lung ([facility]) 04/25/2023 ESBL (extended spectrum beta-lactamase) producing bacteria infection 04/25/2023 Glaucoma 04/25/2023 Hard to intubate 11/09/2019 Heart murmur 04/25/2023 Heart valve disease 04/25/2023 History of blood transfusion 04/25/2023 HIV disease ([facility]) 11/09/2019 HL (hearing loss) 04/25/2023 Hyperlipidemia [...] 11/09/2019 Pulmonary embolism (HCC) 04/25/2023 Rheumatoid arthritis ([facility]) 04/25/2023 Seizures ([facility]) 04/25/2023 Sleep apnea, obstructive 11/09/2019 Stroke ([facility]) 04/25/2023 TIA (transient ischemic attack) 04/25/2023 Past Surgical History: Procedure Laterality Date APPENDECTOMY 10/2019 BACK SURGERY April 30, 2023 Hemilaminectomy foraminotomy HYSTERECTOMY (CERVIX REMOVED) 04/16/2022 HYSTERECTOMY TOTAL ROBOTIC XI N/A 04/16/2022 Procedure: ROBOTIC ASSISTED LAPAROSCOPIC HYSTERECTOMY, EXCISION OF ENDOMETRIOSIS, LYSIS OF ADHESIONS; Surgeon: Bernabe Rouse MD; Location: [facility] Main OR; Service: COMPRESSOR SERVICE TECHNICIAN-Robotics LAMINECTOMY 05/05/2018 L4-L5 LAMINECTOMY DISC LUMBAR SINGLE LEVEL Left 04/30/2023 Procedure: Redo Left Lumbar Five-Six Discectomy/Foraminotomy; Surgeon: Jessica Meyers Jr., DO; Location: [facility] NEURO OR; Service: Neurological ORTHOPEDIC SURGERY May 05, 2018 Discectomy of L4-L5 PELVISCOPY ROBOTIC XI N/A 11/09/2019 Procedure: ROBOTIC ASSISTED LAPAROSCOPIC EXCISION OF ENDOMETRIOSIS, BILATERAL SALPINGECTOMY, BILATERAL URETEROLYSIS, LEFT OVARIAN CYSTECTOMY, BILATERAL OVARIAN SUSPENSION, APPENDECTOMY CYSTOSCOPY WITH HYDRODISTENTION, ERAS PROTOCOL; Surgeon: Bernabe Rouse MD; Location: [facility] Main OR; Service: OBGYN TONSILLECTOMY 04/17/2021 WISDOM [...] Shortness Of Breath Itching from Chest to [place] Prozac [Fluoxetine] Shortness Of Breath Panicky, Shaky, Chest Tightening Risperidone Shortness Of Breath Itching from Chest to [place] Cymbalta [Duloxetine] Other (See Comments) Migraines, severe disorientation and dizziness Dexamethasone (Pf) Other (See Comments) Psychosis Gabapentin Other (See Comments) Suicidal Thoughts [place] Carbonate Other (See Comments) Blood Sugar increase [...] Workstation ID: [id number] documented in this encounter [facility] 10-20-2023 Instructions Reuben Muhammad MD - 10/20/2023 [...] medications that contain aspirin, such as Naomi Wayland, Pepto-Bismol, Anacin), antiinflammatory medications such as Advil, Motrin, Ibuprofen, Naproxen, Aleve, Naomi [place], Pepto-Bismol, Anacin, Diclofenac, Voltaren, Daypro, Etodolac, Ketoprofen, Meloxicam, Piroxicam, Relafen, Nabumetone, etc. Also discontinue Vitamin C, Vitamin E, Manly-3 Fatty Acid, Fish Oil or Lovaza, as [...] day of surgery. documented in this encounter [facility] 10-20-2023 Note Formatting of this n ote might be different from the original. Patient Instructions for [facility]: MAIN OR Prior to surgery: Please contact your surgeon's office for the scheduled time of your surgery. Report to the Surgery Family Waiting Area in the [place] area of [facility] 2 hours prior to your surgery. You may use sliver former parking available at the Blue Entrance, or sliver former parking/ self-parking at the Green Garage or [...] cut them off if necessary. All nail solomon islander must be removed from your fingernails and [...] your surgeon. The expectation is that this jinrikisha driver will remain at the hospital for the duration of your procedure. You are advised to have someone stay with you for at least 24 hours after being under anesthesia. [facility] 10-20-2023 Note Formatting of this n ote might be different from the original. Patient Instructions for [facility]: MAIN OR Prior to surgery: Please contact your surgeon's office for the scheduled time of your surgery. Report to the Surgery Family Waiting Area in the [place] area of [facility] 2 hours prior to your surgery. You may use sliver former parking available at the Blue Entrance, or sliver former parking/ self-parking at the Green Garage or [...] cut them off if necessary. All nail solomon islander must be removed from your fingernails and [...] your surgeon. The expectation is that this jinrikisha driver will remain at the hospital for the duration of your procedure. You are advised to have someone stay with you for at least 24 hours after being under anesthesia. [facility] 10-20-2023 Note Formatting of this n ote might be different from the original. Patient Instructions for [facility]: MAIN OR Prior to surgery: Please contact your surgeon's office for the scheduled time of your surgery. Report to the Surgery Family Waiting Area in the [place] area of [facility] 2 hours prior to your surgery. You may use sliver former parking available at the Blue Entrance, or sliver former parking/ self-parking at the Green Garage or [...] cut them off if necessary. All nail solomon islander must be removed from your fingernails and [...] your surgeon. The expectation is that this jinrikisha driver will remain at the hospital for the duration of your procedure. You are advised to have someone stay with you for at least 24 hours after being under anesthesia. [facility] 10-20-2023 Note Formatting of this n ote might be different from the original. Patient Instructions for [facility]: MAIN OR Prior to surgery: Please contact your surgeon's office for the scheduled time of your surgery. Report to the Surgery Family Waiting Area in the [place] area of [facility] 2 hours prior to your surgery. You may use sliver former parking available at the Blue Entrance, or sliver former parking/ self-parking at the Green Garage or [...] cut them off if necessary. All nail solomon islander must be removed from your fingernails and [...] your surgeon. The expectation is that this jinrikisha driver will remain at the hospital for the duration of your procedure. You are advised to have someone stay with you for at least 24 hours after being under anesthesia. [facility] 10-20-2023 Miscellaneous Notes Patient Instructions for [facility]: MAIN OR Prior to surgery: Please contact your surgeon's office for the scheduled time of your surgery. Report to the Surgery Family Waiting Area in the [place] area of [facility] 2 hours prior to your surgery. You may use sliver former parking available at the Blue Entrance, or sliver former parking/ self-parking at the Green Garage or [...] cut them off if necessary. All nail solomon islander must be removed from your fingernails and [...] your surgeon. The expectation is that this jinrikisha driver will remain at the hospital for the duration of your procedure. You are advised to have someone stay with you for at least 24 hours after being under anesthesia. documented in this encounter [facility] 10-20-2023 Telephone encounter Note Patient was seen in the office today for pre-op RN only visit. Post-op prescriptions entered after visit and routed to provider to sign. 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 Patient cannot take Gabapentin d/t allergy. Already taking Meloxicam, pt declines Rx for Ibuprofen. Percocet is the only Rx sent for post-op pain per patient preference. [facility] 10-20-2023 Miscellaneous Notes Patient was seen in the office today for pre-op RN only visit. Post-op prescriptions entered after visit and routed to provider to sign. 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 Patient cannot take Gabapentin d/t allergy. Already taking Meloxicam, pt declines Rx for Ibuprofen. Percocet is the only Rx sent for post-op pain per patient preference. documented in this encounter [facility] 10-20-2023 History of Present illness Narrative [facility] [address] [facility] [place] [phone] PRE-OPERATIVE CONSULT Pre-Operative Visit: 10/20/23 Date Of Surgery: 10/29/23 Location Of Surgery: [facility] Pre-Op Dx: Endometriosis determined by laparoscopy Interstitial [...] OF ADHESIONS; Surgeon: Bernabe Rouse MD; Location: [facility] Main OR; Service: COMPRESSOR SERVICE TECHNICIAN-Robotics LAMINECTOMY 05/05/2018 L4-L5 LAMINECTOMY DISC LUMBAR SINGLE LEVEL Left 04/30/2023 Procedure: Redo Left Lumbar Five-Six Discectomy/Foraminotomy; Surgeon: Jessica Meyers Jr., DO; Location: [facility] NEURO OR; Service: Neurological PELVISCOPY ROBOTIC XI N/A 11/09/2019 Procedure: ROBOTIC ASSISTED LAPAROSCOPIC EXCISION OF ENDOMETRIOSIS, BILATERAL SALPINGECTOMY, BILATERAL URETEROLYSIS, LEFT OVARIAN CYSTECTOMY, BILATERAL OVARIAN SUSPENSION, APPENDECTOMY CYSTOSCOPY WITH HYDRODISTENTION, ERAS PROTOCOL; Surgeon: Bernabe Rouse MD; Location: [facility] Main OR; Service: OBGYN TONSILLECTOMY 04/17/2021 WISDOM [...] Last visit with Dr. Banda was 09/12/23 ([facility]). Selin Jang RN documented in this encounter [facility] 09-28-2023 Evaluation + Plan note Associated Problem(s): [...] patient, and 10 minutes of writing notes. [facility] 09-28-2023 Miscellaneous Notes Associated Problem(s): Endometrioma of [...] to the procedure. documented in this encounter [facility] 09-28-2023 Evaluation + Plan note Associated Problem(s): [...] add cystoscopy and hydrodistention to the procedure. [facility] 09-12-2023 Note [facility] [address] [place] [phone] TELEHEALTH VISIT Patient Name: Caroline Guillen : 1990 MR #: [id number] SUBJECTIVE: Patient Location: Verified Patient is located in the [facility]. Patient Identification: Verified patient identity by [...] that there are some limitations compared to [id number] evaluations. We elected to proceed. Caroline Guillen [...] updated in the chart. Review of Systems COMPRESSOR SERVICE TECHNICIAN History: Past Medical History: Diagnosis Date Anxiety [...] OF ADHESIONS; Surgeon: Bernabe Rouse MD; Location: [facility] Main OR; Service: COMPRESSOR SERVICE TECHNICIAN-Robotics LAMINECTOMY 05/05/2018 L4-L5 LAMINECTOMY DISC LUMBAR SINGLE LEVEL Left 04/30/2023 Procedure: Redo Left Lumbar Five-Six Discectomy/Foraminotomy; Surgeon: Jessica Meyers Jr., ; Location: [facility] NEURO OR; Service: Neurological PELVISCOPY ROBOTIC XI N/A 11/09/2019 Procedure: ROBOTIC ASSISTED LAPAROSCOPIC EXCISION OF ENDOMETRIOSIS, BILATERAL SALPINGECTOMY, BILATERAL URETEROLYSIS, LEFT OVARIAN CYSTECTOMY, BILATERAL OVARIAN SUSPENSION, APPENDECTOMY CYSTOSCOPY WITH HYDRODISTENTION, ERAS PROTOCOL; Surgeon: Bernabe Rouse MD; Location: [facility] Main OR; Service: OBGYN TONSILLECTOMY 04/17/2021 WISDOM [...] normal. Vitals reviewed. Exam conducted with a excel specialist present. ASSESSMENT/PLAN: Caroline Guillen is a 32 y.o. female who presents for: Problem List Diagnosed Endometriosis determined by laparoscopy Relevant Orders Case Request Operating Room: ROBOTIC ASSISTED LAPAROSCOPIC EXCISION OF ENDOMETRIOSIS, LEFT OVARIAN CYSTECTOMY, POSSIBLE OOPHORECTOMY, LYSIS OF ADHESIONS, CYSTOSCOPY POSSIBLE HYD (more content not included)... [facility] 09-12-2023 History of Present illness Narrative [facility] [address] [facility] [phone] TELEHEALTH VISIT Patient Name: Caroline Guillen : 1990 MR #: [id number] SUBJECTIVE: Patient Location: Verified Patient is located in the [facility]. Patient Identification: Verified patient identity by [...] that there are some limitations compared to [id number] evaluations. We elected to proceed. Caroline Guillen [...] updated in the chart. Review of Systems COMPRESSOR SERVICE TECHNICIAN History: Past Medical History: Diagnosis Date Anxiety [...] OF ADHESIONS; Surgeon: Bernabe Rouse MD; Location: [facility] Main OR; Service: COMPRESSOR SERVICE TECHNICIAN-Robotics LAMINECTOMY 05/05/2018 L4-L5 LAMINECTOMY DISC LUMBAR SINGLE LEVEL Left 04/30/2023 Procedure: Redo Left Lumbar Five-Six Discectomy/Foraminotomy; Surgeon: Jessica Meyers Jr. DO; Location: [facility] NEURO OR; Service: Neurological PELVISCOPY ROBOTIC XI N/A 11/09/2019 Procedure: ROBOTIC ASSISTED LAPAROSCOPIC EXCISION OF ENDOMETRIOSIS, BILATERAL SALPINGECTOMY, BILATERAL URETEROLYSIS, LEFT OVARIAN CYSTECTOMY, BILATERAL OVARIAN SUSPENSION, APPENDECTOMY CYSTOSCOPY WITH HYDRODISTENTION, ERAS PROTOCOL; Surgeon: Bernabe Rouse MD; Location: [facility] Main OR; Service: OBGYN TONSILLECTOMY 04/17/2021 WISDOM [...] normal. Vitals reviewed. Exam conducted with a excel specialist present. ASSESSMENT/PLAN: Caroline Guillen is a 32 [...] Bernabe Rouse MD documented in this encounter [facility] 08-12-2023 Note [facility] [address] [place] [phone] Name: Caroline Guillen : 1990 Date: 08/12/23 Caroline Guillen is a 32 y.o. female presenting for follow up from ED visit in [place] on 08/07/2023. Hx of hysterectomy/EOE [address] Banda. Went to [place] ED for RLQ pain on 08/06. Hx [...] if not symptomatic. She will go to [facility] ED if pain worsens, is unrelenting. Return for consult with surgeon in the office [place]. Evita Reyes, BORA 08/12/23 Addendum: noted that pt had hysterectomy 2022 and bilateral salpingectomy 2019 with EOE. AUTHENTICATED BY EVITA REYES, ON 08/20/2023 08:08:35 [facility] 08-12-2023 History of Present illness Narrative [facility] [address] [place] [phone] Name: Caroline Guillen : 1990 Date: 08/12/23 Caroline Guillen is a 32 y.o. female presenting for follow up from ED visit in [place] on 08/07/2023. Hx of hysterectomy/BS/EOE [address] Banda. Went to [place] ED for RLQ pain on 08/06. Hx [...] if not symptomatic. She will go to [facility] ED if pain worsens, is unrelenting, to rule out torsion. Return for consult with surgeon in the office [place]. Evita Reyes CNP 08/12/23 documented in this encounter [facility] 08-12-2023 History of Present illness Narrative [facility] [address] [facility] [phone] Name: Caroline Guillen : 1990 Date: 08/12/23 Caroline Guillen is a 32 y.o. female presenting for follow up from ED visit in [place] on 08/07/2023. Hx of hysterectomy/EOE [address] Banda. Went to [place] ED for RLQ pain on 08/06. Hx [...] if not symptomatic. She will go to [facility] ED if pain worsens, is unrelenting. Return for consult with surgeon in the office [place]. Evita Reyes CNP 08/12/23 Addendum: noted that pt had hysterectomy 2022 and bilateral salpingectomy 2019 with EOE. documented in this encounter [facility] 08-01-2023 Note Elena Cowan DO [address] [facility] [address] Caroline Guillen 1990 Dear Elena Cowan DO [...] Shortness Of Breath Itching from Chest to [place] Dexamethasone (pf) High Other (See Comments) Psychosis Prozac [fluoxetine] High Shortness Of Breath Panicky, Shaky, Chest Tightening Risperidone High Shortness Of Breath Itching from Chest to [place] Cymbalta [duloxetine] Not Specified Other (See Comments) Migraines, severe disorientation and dizziness Gabapentin Not Specified Other (See Comments) Suicidal Thoughts [place] Carbonate Not Specified Other (See Comments) Blood [...] AUTHENTICATED BY JENNIFER RUSS, ON 08/01/2023 08:58:32 [facility] 08-01-2023 History of Present illness Narrative Elena Cowan DO [address] [facility] [address] Caroline M Mindy 1990 Dear Elena Cowan [...] Shortness Of Breath Itching from Chest to [place] Dexamethasone (pf) High Other (See Comments) Psychosis Prozac [fluoxetine] High Shortness Of Breath Panicky, Shaky, Chest Tightening Risperidone High Shortness Of Breath Itching from Chest to [place] Cymbalta [duloxetine] Not Specified Other (See Comments) Migraines, severe disorientation and dizziness Gabapentin Not Specified Other (See Comments) Suicidal Thoughts [place] Carbonate Not Specified Other (See Comments) Blood [...] Russ PA-C, MSPAS documented in this encounter [facility] 07-14-2023 History of Present illness Narrative Spoke with aren Agarwal at [facility]. Was told that Hip xray's are normally 2-3 view NOT 4 views. Kj LOPEZ aware and order reentered. Patient aware. documented in this encounter [facility] 07-09-2023 History of Present illness Narrative Images from the original note were not included. [facility], NEUROSCIENCE [address] [place] [phone] 07/08/23 PATIENT DEMOGRAPHICS: Caroline Guillen 1990 [address] [facility] [address] Cowan, I had the pleasure [...] or concerns. RASHAAD Longoria Department of Neurosurgery [address], [address] [place], [place] [address] ORDERS No orders of the defined types were placed in this encounter. documented in this encounter [facility] 07-09-2023 Note [facility], NEUROSCIENCE [address] [place] [phone] 07/08/23 PATIENT DEMOGRAPHICS: Caroline Guillen [address] [place] [id number] Dear Dr. Cowan, I had the pleasure [...] or concerns. MOSES Longoria-ACNP Department of Neurosurgery [facility] [address] [place] [address], [address] [place], [place] [address] ORDERS No orders of the defined types were placed in this encounter. AUTHENTICATED BY GLENYS CORTÉS, ON 07/09/2023 15:29:53 [facility] 06-05-2023 History of Present illness Narrative Elena Cowan DO [address] [facility] [address] Caroline uGillen 1990 Dear Elena Cowan DO Amanda M [...] Shortness Of Breath Itching from Chest to [place] Dexamethasone (pf) High Other (See Comments) Psychosis Prozac [fluoxetine] High Shortness Of Breath Panicky, Shaky, Chest Tightening Risperidone High Shortness Of Breath Itching from Chest to [place] Cymbalta [duloxetine] Not Specified Other (See Comments) Migraines, severe disorientation and dizziness Gabapentin Not Specified Other (See Comments) Suicidal Thoughts [place] Carbonate Not Specified Other (See Comments) Blood [...] Johansen RN 06/05/23 documented in this encounter [facility] 06-05-2023 Instructions Esmer Guzman CNP - 06/05/2023 [...] in the nutritional value of your diet. Kinta with fresh foods and don t be [...] whole-grain varieties of breads, muffins, bagels, and Malay muffins; Mix barely cooked vegetables with pasta [...] Potato (with skin), baked 1 potato 4.4 Hinduism Oats, honey and raisins cup 4.2 Peas, (frozen), cooked cup 4.4 Hinduism low fat Natural granola cup 2.8 Mixed Veggies (frozen), cooked cup 4.0 Hinduism Instant oatmeal 1 packet 2.7 Soybeans, cooked cup 3.8 Silvano s Frosted Mini wheats cup 2.5 Broccoli, [...] 0.7 Vegetable soup (Progresso) 1 cup 1.4 Bonita s Frosted Flakes cup 0.7 Lettuce (shree), raw 1 cup 1.2 Bonita s Apple Jacks cup 0.5 Lettuce, (green leaf), raw 1 cup 0.7 General Ibarra Piña Grahams cup 0.6 Celery, raw 1 stalk 0.6 General Ibarra Trix cup 0.4 GRAINS Silvano s Fruit Loops, cup 0.4 Barley (pearled), cooked cup 3.0 Silvano s Rich[place] Krispies cup .04 Oat bran, cooked cup 2.8 Hinduism Cap n Crunch cup 0.3 Rice (brown), [...] 5.0 Apples,(with skin), raw 1 apple 3.3 Faroese Fried potatoes, fast food cup 5.0 Oranges, [...] chip snacks, plan, salted 1 oz 1.3 Jay juice (unsweet.), frozen 6 oz can 1.7 [...] down after eating. documented in this encounter [facility] 06-05-2023 History of Present illness Narrative Chief [...] for Annual physical. documented in this encounter [facility] 05-01-2023 Hospital course Narrative DISCHARGE SUMMARY Patient: Caroline Guillen Date of : 1990 Site: [facility] Family Provider: Elena Cowan DO Admit Date: 04/30/2023 Discharge Date/Time: 05/01/23 12:15 PM Disposition: Home Clinical Summary Hospital Course: Caroline Guillen is a 32 y.o. female patient of Elena Cowan DO On day of discharge, could eat, [...] (pf), Prozac [fluoxetine], Risperidone, Cymbalta [duloxetine], Gabapentin, [place] carbonate, Penicillin, and Nickel Discharge Medications: Discharge [...] Physician(s) Family Provider: Elena Cowan DO, Address: [address] [place] [address] Follow Up: No follow-up provider specified. Completed by: Rosa Bonner CNP on 05/01/23, 1:17 PM documented in this encounter [facility] 05-01-2023 Note Formatting of this n ote [...] Achievement of comfort function goal Outcome: Completed [facility] 05-01-2023 Miscellaneous Notes Problem: Actual or potential [...] at this time. IV was removed during boom man. Problem: Actual or potential alteration in health [...] OF SURGERY: 04/30/23 SURGEON JESSICA MEYERS DO RAILWAYS ASSISTANT HARPAL AVALOS DO Due to the complexity [...] rongeurs as well as curets. Next a [place] was placed and no free fragments were [...] in stable condition. documented in this encounter [facility] 05-01-2023 Note Formatting of this n ote might be different from the original. Discharge AVS reviewed with patient, all questions answered at this time. IV was removed during boom man. [facility] 05-01-2023 Hospital Discharge instructions Rosa Bonner CNP [...] your surgeon. -Be aware that pharmacies in [place] can no longer fill prescriptions more than [...] >101,chills) -Nausea, vomiting documented in this encounter [facility] 05-01-2023 History of Present illness Narrative NEUROSURGERY PROGRESS NOTE: Caroline Guillen 1990 [id number] Admitted with these risk variables:None. Please see [...] Motor strength 5/5 bilateral deltoids, biceps, triceps, audio director, intrinsics. Sensation intact and equal throughout to [...] Rosa Jones CNP documented in this encounter [facility] 03-21-2024 Note Formatting of this n ote [...] of comfort function goal Outcome: Partially Met [facility] 04-30-2023 Note Formatting of this n ote might be different from the original. Caroline Estrella Mindy DATE OF SURGERY: 04/30/23 SURGEON JESSICA MEYERS DO RAILWAYS ASSISTANT HARPAL AVALOS DO Due to the complexity [...] rongeurs as well as curets. Next a [place] was placed and no free fragments were [...] go to the PACU in stable condition. [facility] 04-30-2023 Attending History and physical note INTERVAL HISTORY AND PHYSICAL Patient Name: Craoline Guillen Admit Date: [id number] MR #: [id number] : 1990 The H&P has been reviewed and the patient has been examined. I concur with the findings of the H&P. There are no significant changes. It is appropriate to proceed with the planned procedure. Jessica Meyers Jr., DO 04/30/2023 9:13 AM Source Note - Jessica Meyers Jr., DO - 04/25/2023 9:27 AM EDT [facility] Work Phone: 04-30-2023 History and physical note INTERVAL HISTORY AND PHYSICAL Patient Name: Caroline Guillen Admit Date: [id number] MR #: [id number] : 1990 The H&P has been reviewed and the patient has been examined. I concur with the findings of the H&P. There are no significant changes. It is appropriate to proceed with the planned procedure. Jessica Meyers Jr., 04/30/2023 9:13 AM Source Note - Jessica Meyers Jr., - 04/25/2023 9:27 AM EDT documented in this encounter [facility] 04-25-2023 Nurse Surgical operation note Patient Instructions for [facility] Prior to surgery: Please contact your surgeon's office for the scheduled time of your surgery. Report to the Surgery Family Waiting Area in the [facility] 2 hours prior to your surgery. Your jinrikisha driver may park in the [facility] of [facility]. A voucher for parking will be provided to your jinrikisha driver. One family member may accompany you [...] cut them off if necessary. All nail solomon islander must be removed from your fingernails and [...] your surgeon. The expectation is that this jinrikisha driver will remain at the hospital for the duration of your procedure. You are advised to have someone stay with you for at least 24 hours after being under anesthesia. [facility] 04-25-2023 Nurse Note Patient Instructions for [facility] Prior to surgery: Please contact your surgeon's office for the scheduled time of your surgery. Report to the Surgery Family Waiting Area in the [facility] 2 hours prior to your surgery. Your jinrikisha driver may park in the [facility] of [facility]. A voucher for parking will be provided to your jinrikisha driver. One family member may accompany you [...] cut them off if necessary. All nail solomon islander must be removed from your fingernails and [...] your surgeon. The expectation is that this jinrikisha driver will remain at the hospital for the duration of your procedure. You are advised to have someone stay with you for at least 24 hours after being under anesthesia. documented in this encounter [facility] 04-08-2023 History of Present illness Narrative Patient [...] in the past 6mo. MRI spine in [facility] from 02/17/23 Images from the original note were not included. Neurosurgical New Consult LIVE Visit [facility] 04/08/23 Dr. Jessica Meyers DO [place] [id number] [facility], [address] [place] [id number] [phone] Patient: Caroline Guillen, : 1990, Physicians: Elena [...] includes Laminectomy (05/05/2018); PELVISCOPY ROBOTIC (N/A, 11/09/2019); [place] tooth extraction (Bilateral, Age 23); Appendectomy (10/2019); [...] [fluoxetine], Risperidone, Dexamethasone (pf), Cymbalta [duloxetine], Gabapentin, [place] carbonate, Penicillin, and Nickel Review of Systems: [...] and her spouse regarding surgery scheduling. The [facility] surgery packet was given; my nurse reviewed pre-op usage of antimicrobial soap and nasal prep, brace and bone stimulator protocol, reviewed medication use, and the [facility] pain policy regarding post-operative care. All questions were answered and office contact information was provided. Consult pain team in the hospital As always, I greatly appreciate the opportunity to take part in Caroline Guillen's care. Please don't hesitate to call with any questions or concerns. If I or anyone else at [facility] can be of further service to you or your staff, please call on us. Cordially, Jessica Meyers DO, FACOS documented in this encounter [facility] 05-02-2022 History of Present illness Narrative POST-OPERATIVE [...] histories have been reviewed and updated in [facility] charting. Physical Exam: Physical Exam Constitutional: Appearance: [...] Bernabe Rouse MD documented in this encounter [facility] 05-02-2022 Evaluation + Plan note Associated Problem(s): [...] concerns arise. All questions answered to satisfaction. [facility] 05-02-2022 Miscellaneous Notes Associated Problem(s): Endometriosis determined [...] answered to satisfaction. documented in this encounter [facility] 04-09-2022 Note Formatting of this n ote might be different from the original. Faxed request for surgical consent. [facility] 04-09-2022 Note Formatting of this n ote might be different from the original. Faxed request for surgical consent. [facility] 04-09-2022 Miscellaneous Notes Faxed request for surgical consent. Patient Instructions for [facility]: MAIN OR Prior to surgery: Please contact your Surgeon's office for the scheduled time of your surgery. Report to the Surgery Family Waiting Area in the [place] [facility] of [facility] 2 hours prior to your surgery. You may use the Senior [employer] parking available at the Blue Entrance /or [...] from both ring fingers. Remove all nail solomon islander/product for surgeries involving extremities. Please remember to bring both your insurance card and a photo ID with you on the day of surgery. After your surgery: If you are having outpatient surgery - you must have a licensed jinrikisha driver to take you home. The expectation is that this jinrikisha driver will remain at the hospital for the duration of your procedure. You are advised to have a family member with you for at least 24 hours after being under Anesthesia. documented in this encounter [facility] 04-09-2022 History and physical note Assessment and [...] reflux disease without esophagitis Well controlled with PPI/[id number] which should be dosed perioperatively on usual [...] OF ENDOMETRIOSIS MODERATE ERAS PROTOCOL GLYCEMIC CONTROL PERCHER 04/16/22. This patient has been diagnosed with Pre-Op Dx: Endometriosis (N80.9) and the above procedure has been recommended and scheduled for 04/16/2022. This patient is not known to have any heart problems and does not follow with a journeyman press operator. She is never had a stroke or [...] ERAS PROTOCOL; Surgeon: Bernabe Rouse MD; Location: [facility] Main OR; Service: OBGYN TONSILLECTOMY 04/17/2021 WISDOM [...] Shortness Of Breath Itching from Chest to [place] Prozac [Fluoxetine] Shortness Of Breath Panicky, Shaky, Chest Tightening Risperidone Shortness Of Breath Itching from Chest to [place] Dexamethasone (Pf) Other (See Comments) Psychosis Cymbalta [Duloxetine] Other (See Comments) Migraines, severe disorientation and dizziness Gabapentin Other (See Comments) Suicidal Thoughts [place] Carbonate Other (See Comments) Blood Sugar increase [...] (Calculated): 26.8 Neck Circumference (inches): 14 inches [facility] Work Phone: 04-09-2022 History and physical note [...] reflux disease without esophagitis Well controlled with PPI/[id number] which should be dosed perioperatively on usual [...] OF ENDOMETRIOSIS MODERATE ERAS PROTOCOL GLYCEMIC CONTROL PERCHER 04/16/22. This patient has been diagnosed with Pre-Op Dx: Endometriosis (N80.9) and the above procedure has been recommended and scheduled for 04/16/2022. This patient is not known to have any heart problems and does not follow with a journeyman press operator. She is never had a stroke or [...] ERAS PROTOCOL; Surgeon: Bernabe Rouse MD; Location: [facility] Main OR; Service: OBGYN TONSILLECTOMY 04/17/2021 WISDOM [...] Shortness Of Breath Itching from Chest to [place] Prozac [Fluoxetine] Shortness Of Breath Panicky, Shaky, Chest Tightening Risperidone Shortness Of Breath Itching from Chest to [place] Dexamethasone (Pf) Other (See Comments) Psychosis Cymbalta [Duloxetine] Other (See Comments) Migraines, severe disorientation and dizziness Gabapentin Other (See Comments) Suicidal Thoughts [place] Carbonate Other (See Comments) Blood Sugar increase [...] (inches): 14 inches documented in this encounter [facility] 04-09-2022 History and physical note Assessment and [...] reflux disease without esophagitis Well controlled with PPI/[id number] which should be dosed perioperatively on usual [...] OF ENDOMETRIOSIS MODERATE ERAS PROTOCOL GLYCEMIC CONTROL PERCHER 04/16/22. This patient has been diagnosed with Pre-Op Dx: Endometriosis (N80.9) and the above procedure has been recommended and scheduled for 04/16/2022. This patient is not known to have any heart problems and does not follow with a journeyman press operator. She is never had a stroke or [...] ERAS PROTOCOL; Surgeon: Bernabe Rouse MD; Location: [facility] Main OR; Service: OBGYN TONSILLECTOMY 04/17/2021 WISDOM [...] Shortness Of Breath Itching from Chest to [place] Prozac [Fluoxetine] Shortness Of Breath Panicky, Shaky, Chest Tightening Risperidone Shortness Of Breath Itching from Chest to [place] Dexamethasone (Pf) Other (See Comments) Psychosis Cymbalta [Duloxetine] Other (See Comments) Migraines, severe disorientation and dizziness Gabapentin Other (See Comments) Suicidal Thoughts [place] Carbonate Other (See Comments) Blood Sugar increase [...] (inches): 14 inches documented in this encounter [facility] 04-09-2022 Instructions Aaliyah Perez MD - 04/09/2022 [...] medications that contain aspirin, such as Naomi Wayland, Pepto-Bismol, Anacin), antiinflammatory medications such as Advil, Motrin, Ibuprofen, Naproxen, Aleve, Naomi [place], Pepto-Bismol, Anacin, Diclofenac, Voltaren, Daypro, Etodolac, Ketoprofen, Meloxicam, Piroxicam, Relafen, Nabumetone, etc. Also discontinue Vitamin C, Vitamin E, Manly-3 Fatty Acid, Fish Oil or Lovaza, as [...] day of surgery. documented in this encounter [facility] 04-09-2022 Instructions Aaliyah Perez MD - 04/09/2022 [...] medications that contain aspirin, such as Naomi Way[place], Pepto-Bismol, Anacin), antiinflammatory medications such as Advil, Motrin, Ibuprofen, Naproxen, Aleve, Naomi Wayland, Pepto-Bismol, Anacin, Diclofenac, Voltaren, Daypro, Etodolac, Ketoprofen, Meloxicam, Piroxicam, Relafen, Nabumetone, etc. Also discontinue Vitamin C, Vitamin E, Manly-3 Fatty Acid, Fish Oil or Lovaza, as [...] day of surgery. documented in this encounter [facility] 04-09-2022 Note Formatting of this n ote might be different from the original. Patient Instructions for [facility]: MAIN OR Prior to surgery: Please contact your Surgeon's office for the scheduled time of your surgery. Report to the Surgery Family Waiting Area in the [place] [facility] of [facility] 2 hours prior to your surgery. You may use the [employer] parking available at the Blue Entrance /or [...] from both ring fingers. Remove all nail solomon islander/product for surgeries involving extremities. Please remember to bring both your insurance card and a photo ID with you on the day of surgery. After your surgery: If you are having outpatient surgery - you must have a licensed jinrikisha driver to take you home. The expectation is that this jinrikisha driver will remain at the hospital for the duration of your procedure. You are advised to have a family member with you for at least 24 hours after being under Anesthesia. [facility] 04-09-2022 Note Formatting of this n ote might be different from the original. Patient Instructions for [facility]: MAIN OR Prior to surgery: Please contact your Surgeon's office for the scheduled time of your surgery. Report to the Surgery Family Waiting Area in the [facility] 2 hours prior to your surgery. You may use the Senior Java Programmer parking available at the Blue Entrance /or [...] from both ring fingers. Remove all nail solomon islander/product for surgeries involving extremities. Please remember to bring both your insurance card and a photo ID with you on the day of surgery. After your surgery: If you are having outpatient surgery - you must have a licensed jinrikisha driver to take you home. The expectation is that this jinrikisha driver will remain at the hospital for the duration of your procedure. You are advised to have a family member with you for at least 24 hours after being under Anesthesia. [facility] 04-09-2022 Note Formatting of this n ote might be different from the original. Patient Instructions for [facility]: MAIN OR Prior to surgery: Please contact your Surgeon's office for the scheduled time of your surgery. Report to the Surgery Family Waiting Area in the [facility] 2 hours prior to your surgery. You may use the [employer] parking available at the Blue Entrance /or [...] from both ring fingers. Remove all nail solomon islander/product for surgeries involving extremities. Please remember to bring both your insurance card and a photo ID with you on the day of surgery. After your surgery: If you are having outpatient surgery - you must have a licensed jinrikisha driver to take you home. The expectation is that this jinrikisha driver will remain at the hospital for the duration of your procedure. You are advised to have a family member with you for at least 24 hours after being under Anesthesia. [facility] 04-09-2022 Note Formatting of this n ote might be different from the original. Patient Instructions for [facility]: MAIN OR Prior to surgery: Please contact your Surgeon's office for the scheduled time of your surgery. Report to the Surgery Family Waiting Area in the [facility] 2 hours prior to your surgery. You may use the Senior [employer] parking available at the Blue Entrance /or [...] from both ring fingers. Remove all nail solomon islander/product for surgeries involving extremities. Please remember to bring both your insurance card and a photo ID with you on the day of surgery. After your surgery: If you are having outpatient surgery - you must have a licensed jinrikisha driver to take you home. The expectation is that this jinrikisha driver will remain at the hospital for the duration of your procedure. You are advised to have a family member with you for at least 24 hours after being under Anesthesia. [facility] 04-09-2022 Note Formatting of this n ote might be different from the original. Patient Instructions for [facility]: MAIN OR Prior to surgery: Please contact your Surgeon's office for the scheduled time of your surgery. Report to the Surgery Family Waiting Area in the [facility] 2 hours prior to your surgery. You may use the Senior [employer] parking available at the Blue Entrance /or [...] from both ring fingers. Remove all nail solomon islander/product for surgeries involving extremities. Please remember to bring both your insurance card and a photo ID with you on the day of surgery. After your surgery: If you are having outpatient surgery - you must have a licensed jinrikisha driver to take you home. The expectation is that this jinrikisha driver will remain at the hospital for the duration of your procedure. You are advised to have a family member with you for at least 24 hours after being under Anesthesia. [facility] 04-09-2022 Miscellaneous Notes Patient Instructions for [facility]: MAIN OR Prior to surgery: Please contact your Surgeon's office for the scheduled time of your surgery. Report to the Surgery Family Waiting Area in the [facility] 2 hours prior to your surgery. You may use the [employer] parking available at the Blue Entrance /or [...] from both ring fingers. Remove all nail solomon islander/product for surgeries involving extremities. Please remember to bring both your insurance card and a photo ID with you on the day of surgery. After your surgery: If you are having outpatient surgery - you must have a licensed jinrikisha driver to take you home. The expectation is that this jinrikisha driver will remain at the hospital for the duration of your procedure. You are advised to have a family member with you for at least 24 hours after being under Anesthesia. documented in this encounter [facility] 04-09-2022 Telephone encounter Note Patient was seen in the office today for pre-op RN only visit. Post-op prescriptions entered after visit and routed to provider to sign. 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 [facility] 04-09-2022 Miscellaneous Notes Patient was seen in the office today for pre-op RN only visit. Post-op prescriptions entered after visit and routed to provider to sign. 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 documented in this encounter [facility] 04-09-2022 History of Present illness Narrative [facility] [address] [facility] [place] [phone] PRE-OPERATIVE CONSULT Pre-Operative Visit: 04/09/22 Date Of Surgery: 04/16/22 Location Of Surgery: [facility] Pre-Op Dx: Endometriosis Type Of Surgery: ROBOTIC [...] surgery consent form reviewed. PAT today at [facility]. Last appt with Dr. Banda was 10/08/21. Pt allergic to Gabapentin, Rxs for Percocet and Ibuprofen sent to provider to sign. Selin Jagn RN 04/09/22 8:46 AM documented in this encounter [facility] 10-12-2021 Telephone encounter Note Rx for Micronor added to chart and routed to Dr. Banda to sign. [facility] 10-12-2021 Miscellaneous Notes Rx for Micronor added to chart and routed to Dr. Banda to sign. Patient LVM on RN line. States that she saw Dr. Banda on Friday and Dr. Banda said she would be sending in a prescription for a low dose POP. Patient has checked with her pharmacy ([facility]) and they have not received any prescriptions. [...] at that time. documented in this encounter [facility] 10-10-2021 Telephone encounter Note Patient LVM on RN line. States that she saw Dr. Banda on Friday and Dr. Banda said she would be sending in a prescription for a low dose POP. Patient has checked with her pharmacy ([facility]) and they have not received any prescriptions. [...] be updated and discussed at that time. [facility] 10-08-2021 History of Present illness Narrative [facility] [address] [place] [phone] OFFICE VISIT Patient Name: Caroline Guillen : 1990 MR #: [id number] SUBJECTIVE: Caroline Guillen is a 30 y.o. [...] nursing note reviewed. Exam conducted with a excel specialist present. ASSESSMENT/PLAN: Caroline Guillen 30 y.o. 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 Carolyn Robbins MA, acted as scribe on behalf of Dr. Bernabe Rouse and accurately documented clinical information at the direction of the physician contemporaneously, while she performed the patient's clinical service. 10/08/21 3:02 PM documented in this encounter [facility] 10-08-2021 Evaluation + Plan note Associated Problem(s): [...] Rx written for progestin-only (Micronor) control pill. [facility] 10-08-2021 Miscellaneous Notes Associated Problem(s): Endometriosis Pt [...] (Micronor) control pill. documented in this encounter [facility] 07-08-2021 History of Present illness Narrative Ultrasound images reviewed and evaluated. Documentation within US report. Bernabe Rouse MD 07/08/21 10:49 AM documented in this encounter [facility] 05-01-2021 Telephone encounter Note Returned call to [...] follow up with Dr. Banda in June. [facility] 05-01-2021 Miscellaneous Notes Returned call to patient [...] scheduled for a follow up with Dr. Badna in June. Pt called and stated that she discussed with Dr Banda about switching from Anavera to the Nuva ring and wants to know if this is a better option than Orlissa. Every since the pt has had Covid she is very sensitive to medications. documented in this encounter [facility] 04-27-2021 Telephone encounter Note Pt called and stated that she discussed with Dr Banda about switching from Anavera to the Nuva ring and wants to know if this is a better option than Orlissa. Every since the pt has had Covid she is very sensitive to medications. [facility] 04-17-2021 History of Present illness Narrative Discharge [...] pain 5/10 like a sore throat'. [facility] Preadmission Testing Name: Caroline Guillen : [...] Take [x] Ride Home [x]No Jewelry/Contact Lenses/Nail Vietnamese [] Prep/Lax/Clear Liquids [] Chlorhexidene DOS Patient Needs [x] HCG [] Blood Sugar [] PT/INR [] T&S COVID Vaccinated? [] Yes [x] No Patient instructed on the pre-operative, intra-operative, and post-operative process? Yes Medication instructions reviewed with patient? Yes documented in this encounter [facility] Phone: 04-07-2021 History of Present illness Narrative Ultrasound images reviewed and evaluated. Documentation within US report. Bernabe Rouse MD 04/07/21 10:46 PM documented in this encounter [facility] 03-28-2021 History of Present illness Narrative [facility] [address] [place] [phone] OFFICE VISIT Patient Name: Caroline Guillen : 1990 MR #: [id number] SUBJECTIVE: Caroline Guillen is a 30 y.o. [...] nursing note reviewed. Exam conducted with a excel specialist present. ASSESSMENT/PLAN: Caroline Guillen 30 y.o. presents [...] 03/28/21 8:47 AM documented in this encounter [facility] 03-28-2021 Evaluation + Plan note Associated Problem(s): [...] depression and anxiety. Orlissa samples given today. [facility] 03-28-2021 Miscellaneous Notes Associated Problem(s): Endometriosis Pelvic [...] samples given today. documented in this encounter [facility] 02-21-2021 Note HNO ID: [id number] Author: RT Sylvester(R) Service: Radiology Author Type: [...] RT Sylvester(R) February 21, 2021 2:02 PM [facility] 02-21-2021 Note HNO ID: [id number] Author: Leonidas Chatterjee APRN.GAS METER READER Service: ? Author Type: Nurse Practitioner Type: [...] of care. This note was generated using e(ye)BRAIN software. It may contain errors in wording, punctuation, or spelling. Leonidas Chatterjee APRN.GAS METER READER [facility] 02-21-2021 History of Present illness Narrative [...] 2021 2:02 PM documented in this encounter [facility] 10-23-2020 History of Present illness Narrative Ultrasound images reviewed and evaluated. Documentation within US report. 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 Contraception options reviewed and patient elects tubal [...] Crockett CNP 10/18/20 documented in this encounter [facility] Evaluation note Diagnosis Endometriosis- Primary Endometriosis, site [...] Diagnosis Chronic tonsillitis documented in this encounter [facility] Phone: evaluation note* Diagnosis Pelvic pain in [...] region and thigh documented in this encounter [facility] note* Diagnosis Left hip pain- Primary Pain in joint, pelvic region and thigh documented in this encounter [facility] note* Diagnosis Lumbar radiculopathy- Primary Thoracic or lumbosacral neuritis or radiculitis, unspecified documented in this encounter [facility] note* Diagnosis Lumbar radiculopathy- Primary Thoracic or lumbosacral neuritis or radiculitis, unspecified documented in this encounter [facility] note* Diagnosis Lumbar radiculopathy, acute- Primary documented in this encounter [facility] note* Diagnosis Left ovarian cyst- Primary Other and unspecified ovarian cyst documented in this encounter [facility] note* Diagnosis Left ovarian cyst- Primary Other and unspecified ovarian cyst documented in this encounter [facility] note* Diagnosis Endometriosis determined by laparoscopy Endometrioma of ovary Interstitial cystitis Chronic interstitial cystitis Endometriosis determined by laparoscopy Interstitial cystitis Chronic interstitial cystitis Endometrioma of ovary Endometriosis determined by laparoscopy Interstitial cystitis Chronic interstitial cystitis Endometrioma of ovary documented in this encounter [facility] note* Diagnosis Endometriosis determined by laparoscopy Interstitial cystitis Chronic interstitial cystitis Endometrioma of ovary Endometriosis determined by laparoscopy- Primary Pre-op examination Anxiety and depression Bipolar affective disorder, remission status unspecified (HCC) Complication of anesthesia, initial encounter Endometriosis determined by laparoscopy Interstitial cystitis Chronic interstitial cystitis Endometrioma of ovary documented in this encounter [facility] note* Diagnosis Endometriosis determined by laparoscopy Interstitial cystitis Chronic interstitial cystitis Endometrioma of ovary Endometriosis determined by laparoscopy- Primary Pre-op examination Anxiety and depression Bipolar affective disorder, remission status unspecified (HCC) Complication of anesthesia, initial encounter Endometriosis determined by laparoscopy Interstitial cystitis Chronic interstitial cystitis Endometrioma of ovary documented in this encounter [facility] note* Diagnosis Endometriosis determined by laparoscopy Interstitial cystitis Chronic interstitial cystitis Endometrioma of ovary Pelvic pain in female- Primary Unspecified symptom associated with female genital organs Endometriosis determined by laparoscopy Interstitial cystitis Chronic interstitial cystitis Endometrioma of ovary documented in this encounter [facility] note* Diagnosis Pain of right hand Pain in limb documented in this encounter [facility] note* Diagnosis Post-operative state- [...] PROVIDED IN THIS DOCUMENT. [facility] reason for referral (narrative)* Diagnostic Procedure Only (Urgent) - Closed Specialty Diagnoses / Procedures Referred By Contac t Referred To Contact XR IMAGING Diagnoses Pain of right hand Procedures XR HAND GENERAL 3V PA/LAT/OBL RIGHT X-RAY HAND MINIMUM 3 VIEWS Leonidas Chatterjee APRN.GAS METER READER [address] [place] [address] [place] [address] Referral ID Status Reason Start Date Expiration Date V isits Requested Visits Authorized Closed Auto-Generate d Referral 02/21/2021 03/23/2022 1 1 Healthcare for visit Narrative* Auth/Cert Specialty Diagnoses / Procedures Referred By Contac t Referred To Contact Diagnoses Chronic tonsillitis Dysphagia, unspecified chronic tonsilitis, dysphagia Procedures RI REMOVAL OF TONSILS,12+ Y/O TONSILLECTOMY Jose Roberto Dunaway MD [address] [place] [address] [employer] [address] [place] [address] Referral ID Status Reason Start Date Expiration Date Visits Re quested Visits Authorized [id number] 1 1 [facility] Phone: reason for visit Narrative* Diagnostic Procedure Only (Urgent) - Closed Specialty Diagnoses / Procedures Referred By Contdeena t Referred To Contact XR IMAGING Diagnoses Pain of right hand Procedures XR HAND GENERAL 3V PA/LAT/OBL RIGHT X-RAY HAND MINIMUM 3 VIEWS Leonidas Chatterjee APRN.GAS METER READER [address] [place] [address] [place] [address] Referral ID Status Reason Start Date Expiration Date V isits Requested Visits Authorized [id number] Closed Auto-Generate d Referral 02/21/2021 03/23/2022 1 1 [facility] Summary Purpose Family History No Family History Records FoundNo Family History Records FoundNo Family History Records FoundNo Family History Records FoundNo Family History Records FoundNo Family History Records FoundNo Family History Records FoundNo Family History Records Found Advance Directives No Advanced Directives Records FoundDocuments on File Type Date Recorded 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 Advance Directives and Livin g Will 11/09/2019 5:06 AM Latest Code Status on File Code Status Date Activated Date Inactivated Comments Full Code 11/09/2019 5:41 AM 11/09/2019 12:57 PM Documents on File Type Date Recorded 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 Patient Identification: Verified patient identity by [...] Herniated lumbar intervertebral disc Elena Cowan, DO [address] [place] [address] Jessica Meyers Jr., DO [address] [facility] [address] [place] [address] Referral ID Status Reason Start Date Expiration Date V isits Requested Visits Authorized [id number] Authorized 02/25/2023 02/25/2024 1 1 Specialty Diagnoses / Procedures Referred By Contac t Referred To Contact Physical Therapy Diagnoses Lumbar radiculopathy Jennifer Russ PA-C [address] [facility] [address] [place] [address] Referral ID Status Reason Start Date Expiration Date Visits Requested Visits Authorized [id number] Authorized Specialty Services Required/Pat ient's Best Interest 06/05/2023 06/04/2024 1 1 Specialty Diagnoses / Procedures Referred By Contac t Referred To Contact Diagnoses Lumbar radiculopathy Len Cortésagustina Sams, GAS METER READER [address] [place] [address] OF SERVICE NOT IN SYSTEM Referral ID Status Reason Start Date Expiration Date Visits Requested Visits Authorized [id number] Authorized Patient Preference 07/09/2023 07/08/2024 1 1 Specialty Diagnoses / Procedures Referred By Contac t Referred To Contact Radiology Diagnoses Lumbar radiculopathy Procedures MR Lumbar Spine Without Contrast Len Cortésagustina Sams, GAS METER READER [address] [place] [address] Referral ID Status Reason Start Date Expiration Date V isits Requested Visits Authorized [id number] New Request 07/09/2023 07/08/2024 1 1 Specialty Diagnoses / Procedures Referred By Contac t Referred To Contact Physical Medicine and Rehabilitation Diagnoses Lumbar radiculopathy Len Cortésagustina Sams, GAS METER READER [address] [place] [address] Referral ID Status Reason Start Date Expiration Date V isits Requested Visits Authorized [id number] Authorized 07/09/2023 07/08/2024 1 1 Referral ID Status Reason Start Date Expiration Date Visits Requested Visits Authorized [id number] Pending Review Specialty Services Required/Pat ient's Best Interest 07/16/2023 07/15/2024 1 1 Specialty Diagnoses / Procedures Referred By Contac t Referred To Contact Neurology Diagnoses Lumbar radiculopathy Jennifer Russ PA-C [address] [place] [address] Delvin Nguyen MD [facility] Rik Quijano [address] [address] Referral ID Status Reason Start Date Expiration Date Visits Requested Visits Authorized [id number] Authorized Specialty Services Required/Pat ient's Best Interest 08/01/2023 07/31/2024 1 1 Specialty Diagnoses / Procedures Referred By Katlyn espinoza Referred To Contact Physical Medicine and Rehabilitation Diagnoses Lumbar radiculopathy Jennifer Russ PA-C [address] [facility] [address] [place] [address] Hoa Cruz MD [address] [facility] [address] [place] [address] Referral ID Status Reason Start Date Expiration Date Visits Requested Visits Authorized [id number] Pending Review Specialty Services Required/Pat ient's Best Interest 08/01/2023 07/31/2024 1 1 Additional Source Comments INFORMATION SOURCE (unrecogn ized section and content) DATE CREATED AUTHOR 05/12/2018 [facility] DATE CREATED AUTHOR AUTHOR'S ORGANIZ ATION 08/03/2019 [facility]) DATE CREATED AUTHOR AUTHOR'S ORGANIZ ATION 02/22/2021 [facility] DATE CREATED AUTHOR AUTHOR'S ORGANIZ ATION 04/19/2021 [facility] DATE CREATED AUTHOR AUTHOR'S ORGANIZ ATION 08/01/2023 [facility] DATE CREATED AUTHOR AUTHOR'S ORGANIZ ATION 11/24/2023 [facility] DATE CREATED AUTHOR AUTHOR'S ORGANIZ ATION 11/25/2023 [facility] DATE CREATED AUTHOR AUTHOR'S ORGANIZ ATION 12/04/2023 [facility] Reason for Visit (unrecogniz ed section and content) Status Reason Specialty Diagnoses / Procedures Referre d By Contact Referred To Contact Diagnoses N80.9 Procedures RI LAP,FULGURATE/EXCISE LESIONS RI LAP,RMV ADNEXAL STRUCTURE RI CYSTOSCOPY,DIL BLADDER,GEN ANESTH ROBOTIC ASSISTED LAPAROSCOPIC EXCISION [...] Herniated lumbar intervertebral disc Elena Cowan, DO [address] [place] [address] Jessica Meyers Jr., DO [address] [facility] [address] [place] [address] Referral ID Status Reason Start Date Expiration Date Visits Re quested Visits Authorized [id number] Closed 02/25/2023 02/25/2024 1 1 Specialty Diagnoses / Procedures Referred By Katlyn espinoza Referred To Contact Diagnoses Lumbar radiculopathy Lumbar radiculopathy [M54.16] Procedures RI SKINNER FACETECTOMY & FORAMOTOMY 1 VRT SGM LUMBAR Jessica Meyers Jr., DO [address] [facility] [address] [place] [address] Referral ID Status Reason Start Date Expiration Date Visits Re quested Visits Authorized [id number] 04/14/2023 1 1 Reason Comments Follow-up Reason [...] (unrecognized section and content) Patient Instructions for [facility]: MAIN OR Prior to surgery: ? Please contact your Surgeon's office for the scheduled time of your surgery. ? Report to the Surgery Family Waiting Area in the [facility] 2 hours prior to your surgery. ? You may use the Senior [employer] parking available at the Green Entrance /or [...] both ring fingers. ? Remove all nail solomon islander/product for surgeries involving extremities. ? Please remember to bring both your insurance card and a photo ID with you on the day of surgery. After your surgery: ? If you are having outpatient surgery you must have a licensed jinrikisha driver to take you home. The expectation is that this jinrikisha driver will remain at the hospital for [...] 1990 (29 y.o.) Date of Service: 11/09/2019 [facility]: [id number] Procedure(s): ROBOTIC ASSISTED LAPAROSCOPIC EXCISION OF ENDOMETRIOSIS, BILATERAL SALPINGECTOMY, BILATERAL URETEROLYSIS, LEFT OVARIAN CYSTECTOMY, BILATERAL OVARIAN SUSPENSION, APPENDECTOMY CYSTOSCOPY WITH HYDRODISTENTION, ERAS PROTOCOL Pre-Operative Diagnoses: * Chronic pelvic pain in female [503968], Endometriosis [206839] Post-Operative Diagnoses: * Endometriosis of pelvic peritoneum [N80.3] * Endometriosis of parametrium [N80.3] * Endometriosis of rectovaginal septum [N80.4] * Endometrioma of ovary [N80.1] * Endometriosis of bladder [N80.8] * 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] * Adhesions due to endometriosis [N80.9] * Interstitial cystitis [N30.10] Surgeon(s) and Role: * Bernabe Rouse MD - Primary Anesthesiologist: Guille Ochoa MD S3B MULTI SENSOR OPERATOR: Lisa Monroe CRNA Wire Mesh Gate Assembler Relief: Anais Ellis RN Scrub Person: ST Heladio Wire Mesh Gate Assembler Orientee: Eva Du RN Wire Mesh Gate Assembler Preceptor: Mariah Parisi RN Rivet Passer: Roxie Escalante DIRECTOR OF PHYSIOTHERAPY SERVICES: Kassidy Mensah CNP Operative findings: Stage IV [...] Perirectal Endo Tissue Endometrium TISSUE EXAM Bernabe Rosue MD 11/09/2019 1004 X : Left Perirectal Endo Tissue Endometrium TISSUE EXAM Bernabe Rouse MD 11/09/2019 1005 Y : Tissue Appendix TISSUE EXAM Bernabe Rouse MD 11/09/2019 1005 Implant(s): Implant Name Type Inv. Item Serial No. Director Of Accounting Lot No. LRB No. Used Action BARRIER 5 X 6IN ADHESION TC 7 INTERCEED - [id number] BARRIER 5 X 6IN ADHESION TC 7 INTERCEED ETHICON [id number] N/A 1 Implanted CATH 5IN EXPANSION ON-Q SILVERSOAKER - [id number] Catheter - Implant CATH 5IN EXPANSION ON-Q SILVERSOAKER [employer] [id number] N/A 2 Implanted PUMP 100 X 2ML/HR BALL 2 DAY EXT RELEASE ON-Q - [id number] PUMP 100 X 2ML/HR BALL 2 DAY EXT RELEASE ON-Q [employer] [id number] N/A 1 Implanted KIT 10ML TISSEEL FROZEN W/ PRIMA SYRINGE - [id number] KIT 10ML TISSEEL FROZEN W/ PRIMA SYRINGE Kingmaker [id number] N/A 1 Implanted BARRIER 5 X 6IN ADHESION TC 7 INTERCEED - [id number] BARRIER 5 X 6IN ADHESION TC 7 INTERCEED ETHICON [id number] N/A 1 Implanted BARRIER 5 X 6IN ADHESION TC 7 INTERCEED - [id number] BARRIER 5 X 6IN ADHESION TC 7 INTERCEED ETHICON [id number] N/A 1 Implanted Drain(s): [REMOVED] Urethral Catheter [...] Care Teams (unrecognized sec tion and content) 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 Specialty Start Date End Date Elena Cowan DO [address] [place], [place] [id number] PCP - General Family Medicine 07/23/19 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 Specialty Start Date End Date Elena Cowan DO PCP - General Family Medicine 07/23/19 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 Specialty Start Date End Date Elena Cowan DO PCP - General Family Medicine 07/23/19 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 Specialty Start Date End Date Elena Cowan [address] [place], [place] [id number] PCP - General Family Medicine 04/17/21 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 Specialty Start Date End Date Elena Cowan [address] [place], [place] [id number] PCP - General Family Medicine 04/17/21 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 Specialty Start Date End Date Elena Cowan DO PCP - General Family Medicine 07/23/19 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 Specialty Start Date End Date Elena Cowan DO PCP - General Family Medicine 07/23/19 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 Specialty Start Date End Date Elena Cowan DO PCP - General Family Medicine 07/23/19 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 Specialty Start Date End Date Elena Cowan DO [address] [place], [place] [id number] PCP - General Family Medicine 07/23/19 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 Specialty Start Date End Date Elena Cowan DO [address] [place] [address] [place] [address] PCP - General Family Medicine 07/23/19 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 Specialty Start Date End Date Elena Cowan DO [address] [place], [place] [id number] PCP - General Family Medicine 07/23/19 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 Specialty Start Date End Date Elena Cowan DO [address] [place] [address] [place] [address] PCP - General Family Medicine 07/23/19 Bernabe Rouse MD [address] [facility] [place] [address] Consulting Physician Obstetrics/Gynecology 05/01/22 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 Specialty Start Date End Date Elena Cowan DO [address] [place], [place] [id number] PCP - General Family Medicine 07/23/19 Bernabe Rouse MD [address] [place] [address] Consulting Physician Obstetrics/Gynecology 05/01/22 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 Specialty Start Date End Date Elena Cowan DO [address] [place] [address] [place] [address] PCP - General Family Medicine 07/23/19 Bernabe Rouse MD [address] [place] [address] Consulting Physician Obstetrics/Gynecology 05/01/22 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 Specialty Start Date End Date Elena Cowan DO [address] [place] [address] [place] [address] PCP - General Family Medicine 07/23/19 Bernabe Rouse MD [address] [place] [address] Consulting Physician Obstetrics/Gynecology 05/01/22 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 Specialty Start Date End Date Elena Cowan DO [address] [place] [address] [place] [address] PCP - General Family Medicine 07/23/19 Bernabe Rouse MD [address] [place] [address] Consulting Physician Obstetrics/Gynecology 05/01/22 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 Specialty Start Date End Date ChapoLigiaa DO Malu [address] [place] [address] [place] [address] PCP - General Family Medicine 07/23/19 Bernabe Rouse MD [address] [place] [address] Consulting Physician Obstetrics/Gynecology 05/01/22 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 Specialty Start Date End Date Chapo Elena ToribioDO [address] [place] [address] [place] [address] PCP - General Family Medicine 07/23/19 Bernabe Rouse MD [address] [place] [id number] Consulting Physician Obstetrics/Gynecology 05/01/22 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 Specialty Start Date End Date SaúlhennaElena DO [address] [place] [address] [place] [address] PCP - General Family Medicine 07/23/19 Bernabe Rouse MD [address] [place] [address] Consulting Physician Obstetrics/Gynecology 05/01/22 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 Specialty Start Date End Date SaúlhennaElena DO [address] [place] [address] [place] [address] PCP - General Family Medicine 07/23/19 Bernabe Rouse MD [address] [place] [address] Consulting Physician Obstetrics/Gynecology 05/01/22 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 Specialty Start Date End Date Elena Cowan DO [address] [place] [address] [place] [address] PCP - General Family Medicine 07/23/19 Bernabe Rouse MD [address] [place] [address] Consulting Physician Obstetrics/Gynecology 05/01/22 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 Specialty Start Date End Date Elena Cowan DO [address] [place] [address] [place] [address] PCP - General Family Medicine 07/23/19 Bernabe Rouse MD [address] [place] [address] Consulting Physician Obstetrics/Gynecology 05/01/22 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 Specialty Start Date End Date Elena Cowan DO [address] [place] [address] [place] [address] PCP - General Family Medicine 07/23/19 Bernabe Rouse MD [address] [place] [address] Consulting Physician Obstetrics/Gynecology 05/01/22 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 Specialty Start Date End Date Elena Cowan [address] [place] [address] [place] [address] PCP - General Family Medicine 07/23/19 Bernabe Rouse MD [address] [place] [address] Consulting Physician Obstetrics/Gynecology 05/01/22 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 Specialty Start Date End Date Elena Cowan DO [address] [place] [address] [place] [address] PCP - General Family Medicine 07/23/19 Bernabe Rouse MD [address] [place] [id number] Consulting Physician Obstetrics/Gynecology 05/01/22 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 Specialty Start Date End Date ChapoLigiaa DO Malu [address] [place] [address] [place] [address] PCP - General Family Medicine 07/23/19 Bernabe Rouse MD [address] [place] [address] Consulting Physician Obstetrics/Gynecology 05/01/22 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 Start Date End Date SaúlhennaLigiaa DO Malu [address] [place] [address] [place] [address] PCP - General Family Medicine 07/23/19 Bernabe Rouse MD [address] [place] [address] Consulting Physician Obstetrics/Gynecology 05/01/22 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 Specialty Start Date End Date Elena Cowan DO [address] [place] [address] PCP - General Family Medicine 07/23/19 Bernabe Rouse MD [address] [place] [address] Consulting Physician Obstetrics/Gynecology 05/01/22 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 Specialty Start Date End Date Bassam Bojorquez MD PCP - General Family Medicine 06/13/14 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 Specialty Start Date End Date Chapo Elena DO Malu [address] [place] [address] PCP - General Family Medicine 07/23/19 Bernabe Rouse MD [address] [place] [address] Consulting Physician Obstetrics/Gynecology 05/01/22 Scheduled Active and [...] Walton RN) [phone] (New Bag - Provider: Suim Rogers RN)[phone] (Stopped - Provider: Sumi Rogers [...] or prosecute any alcohol or drug abuse patient.[facility] FOR RECORDS PERTAINING TO PATIENTS WHO [...] BE BASED ON THE PRIMARY CLINICAL RECORDS. [facility] [employer] [facility]. provides no warranty or guarantee of the accuracy or completeness of information in this document.
[2023-12-08 09:00] LABS: Vitamin B12 753 pg/mL (211-911)
[2023-12-11 05:07] LABS: Anti-Parietal Cell AB, QN 1.3 Units (0.0-20.0)
== END | disposition home or self-care (01) ==
LOC: LAB 15:47
PROVIDERS: Student in an Organized Health Care Education/Training Program; PCP Family Medicine; Visit Provider Internal Medicine Gastroenterology
DX: E16.4 Increased secretion of gastrin (principal)
CPT/HCPCS: 36415; 82607; 82746; 83516; 86340

== ENCOUNTER → 2023-12-10 | Outpatient (CLI) | payer BC, SELFPAY ==
--- NOTE | 2023-12-10 13:12 | NM_ITS ---
CLINICAL: 33-year-old female with history of abdominal bloating. SEMI-SOLID PHASE 99m Tc SULFUR COLLOID GASTRIC EMPTYING STUDY COMPARISON: None available FINDINGS: The patient was administered 1.0 mCi of 99m Tc sulfur colloid mixed with oatmeal and consumed per os. Image acquisitions in the anterior-posterior projections were obtained for 60 minutes. There is prompt visualization of the stomach. There is no gastroesophageal reflux identified. First order kinetics are maintained throughout the duration of the acquisitions. The T ? linear fit was extrapolated to be 919.12 minutes, (Normal: 12-56 minutes). NM/Gastric Emptying Study IMPRESSION: 1. ABNORMAL 99m Tc sulfur colloid semi-solid phase (oatmeal) gastric emptying imaging examination. A. There is markedly delayed semi-solid phase gastric emptying compared to normal controls. (Vidal et al, J Nucl Med Tech 38: 186, 2010). Electronically Signed: Artur Magallanes DO at 12:11 EDT ,
== END | disposition home or self-care (01) ==
LOC: NM 13:09
PROVIDERS: PCP Family Medicine; Referring Provider Internal Medicine Gastroenterology; Visit Provider Internal Medicine Gastroenterology
DX: K59.00 Constipation, unspecified (principal)
CPT/HCPCS: 78264; A9541

== ENCOUNTER → 2023-12-18 | Outpatient (CLI) | payer BC, SELFPAY | END | disposition home or self-care (01) | LOC: NM 10:50 | PROVIDERS: PCP Family Medicine; Referring Provider Internal Medicine Gastroenterology; Visit Provider Internal Medicine Gastroenterology | DX: K59.00 Constipation, unspecified (principal) | CPT/HCPCS: 78227; A9537; J2805 ==

== ENCOUNTER → 2023-12-24 | Outpatient (CLI) | payer BC, SELFPAY ==
--- NOTE | 2023-12-24 10:48 | US_ITS ---
STUDY: ULTRASOUND - URINARY BLADDER REASON FOR EXAM: Female, 33 years old. URINARY RETENTION TECHNIQUE: Ultrasound evaluation of the urinary bladder was performed with real-time and static mcintosh-scale imaging. COMPARISON: None. FINDINGS: There is no right UVJ calculus. There is a visualized right ureteral jet. There is no left UVJ calculus. There is a visualized left ureteral jet. The distended volume of the urinary bladder is 47 ml. The empty volume of the urinary bladder is 12 ml. The bladder wall is within normal limits. The bladder wall measures 2 mm. There is no demonstrated bladder wall mass lesion. There are no demonstrated bladder calculi. US/Post Void Residual Bladder IMPRESSION: Normal ultrasound of the urinary bladder. Electronically Signed: Artur Riggs MD at 10:28 EST ,
== END | disposition home or self-care (01) ==
LOC: US 10:42
PROVIDERS: PCP Family Medicine; Referring Provider Family Medicine; Visit Provider Family Medicine
DX: R33.9 Retention of urine, unspecified (principal)
CPT/HCPCS: 51798

== ENCOUNTER → 2024-01-02 | Outpatient (CLI) | payer BC, SELFPAY ==
--- NOTE | 2024-01-02 07:47 | NM_ITS ---
CLINICAL: 33-year-old female with history of clinical gastroparesis. SOLID PHASE 99m Tc SULFUR COLLOID GASTRIC EMPTYING STUDY COMPARISON: Semisolid phase gastric emptying study report 12/10/2023 FINDINGS: The patient was administered 1.1 mCi of 99m Tc sulfur colloid mixed with egg and consumed per os. Image acquisitions in the anterior-posterior projections were obtained for 231 minutes following meal consumption. There is prompt visualization of the stomach. There is no gastroesophageal reflux identified. First order kinetics are demonstrated throughout the duration of the acquisitions. The T ? raw data emptying was calculated to be 161.63 minutes, (Normal 65-110 minutes). 77.0 % emptying and 23.0 % retention are defined at 4 hours post meal ingestion. NM/Gastric Emptying Study - 4 HR IMPRESSION: 1. ABNORMAL 99m Tc sulfur colloid solid phase gastric emptying imaging examination. A. There is abnormal solid phase gastric emptying compared to normal controls with maintained first order kinetics throughout all components of the examination. (Topher et al, Gastroenterology 77: 75, 1979 Daniel et al, Semin Nucl Med 12: 116, 1981 Madhu et al, SNM Procedure Guidelines Adult Solid Meal Gastric Emptying Study 3.0 [email or web address]). B. Greater than 10% retention of the initial gastric contents at 4 hours post dose is consistent with abnormal solid phase gastric emptying which correlates with the results of the T ? emptying calculation. (Meron et al, J Nucl Med 48: 568, 2007). Electronically Signed: Artur Magallanes DO at 9:45 EST ,
== END | disposition home or self-care (01) ==
LOC: NM 07:47
PROVIDERS: PCP Family Medicine; Referring Provider Internal Medicine Gastroenterology; Visit Provider Internal Medicine Gastroenterology
DX: K31.84 Gastroparesis (principal)
CPT/HCPCS: 78264; A9500; A9541

== ENCOUNTER → 2024-05-07 | Outpatient (CLI) | payer BC, SELFPAY ==
--- NOTE | 2024-05-07 10:25 | NM_ITS ---
PROCEDURE: GASTRIC EMPTYING STUDY 05/07/2024 REASON FOR EXAM: GASTROPARESIS COMPARISON: 01/02/2024 gastric emptying study. TECHNIQUE: The patient ingested 1.1 mCi of 99 M technetium sulfur colloid in oatmeal. Anterior and posterior planar images of the upper abdomen were obtained for 60 minutes immediately following the meal. FINDINGS: T half-life: None. Percent activity remaining in stomach: 1 hour 40 % (normal 37-90%) PA/Gastric Emptying Study IMPRESSION: There is 40% retained activity in the stomach at 60 minutes, within the normal range for gastric emptying. Reading Location: [facility]
== END | disposition home or self-care (01) ==
LOC: NM 10:21
PROVIDERS: PCP Family Medicine; Referring Provider Internal Medicine Gastroenterology; Visit Provider Internal Medicine Gastroenterology
DX: K31.84 Gastroparesis (principal)
CPT/HCPCS: 78264; A9541